=== PATIENT | male | born 1965 | race Caucasian/White ===

== ENCOUNTER 2017-05-25 14:55 | Inpatient (IN) | payer OTHER ==
[2017-05-25] MEDS ORDERED: FUROSEMIDE 10 MG/ML 4 ML VIAL IV STA (15:03)
[2017-05-25] MEDS ORDERED: HEPARIN SODIUM,PORCINE 5,000 UNIT/ML 1 ML VIAL IV STA (15:03)
[2017-05-25] MEDS ORDERED: MORPHINE SULFATE 2 MG/ML SYRINGE IVP ONE (15:03)
[2017-05-25] MEDS ORDERED: LIDOCAINE 2% INJ 20 MG/ML (20 ML MDV) ONE (15:08)
--- NOTE | 2017-05-25 15:11 | ED ---
Chest Pain HPI - General Chief Complaint: Chest Pain Stated Complaint: chest pain Time Seen by Provider: 05/25/17 14:55 Source: patient, EMS, RN notes reviewed Mode of arrival: EMS Limitations: no limitations - History of Present Illness Initial Comments: This is a 52-year-old male with a history of alcoholism drinking about 18 beers a day also a smoker of a pack a day but no history of hypertension kidney or liver disease that he is aware of who started having pain in his chest also low back and back of his neck about 5 days ago and seems to have gotten worse today he called EMS states it was 10/10 in severity paramedics did perform an EKG which showed suspicious evidence of ST elevations in lead 1 V5 and V6. He was given aspirin nitroglycerin transferred here for evaluation. He denies any nausea vomiting he does have some slight shortness of breath. No other complaints oh History of heart disease at this time reported. MD Complaint: chest pain - Related Data Home Medications Medication Instructions Recorded Confirmed No Known Home Medications [No 05/25/17 05/25/17 Known Home Medications] Allergies Allergy/AdvReac Type Severity Reaction Status Date / Time No Known Allergies Allergy Verified 05/25/17 15:04 Review of Systems ROS Statement: Those systems with pertinent positive or pertinent negative responses have been documented in the HPI. ROS Other: All systems not noted in ROS Statement are negative. Past Medical History Past Medical History: No Reported History History of Any Multi-Drug Resistant Organisms: None Reported Past Surgical History: Back Surgery Past Psychological History: No Psychological Hx Reported Smoking Status: Current every day smoker Past Alcohol Use History: Daily Past Drug Use History: None Reported General Exam - General Exam Comments Initial Comments: This is a well-developed well-nourished awake alert oriented times 3 male Limitations: no limitations General appearance: alert, anxious Head exam: Present: atraumatic, normocephalic, normal inspection Eye exam: Present: normal appearance, PERRL, EOMI. Absent: scleral icterus, conjunctival injection, periorbital swelling ENT exam: Present: normal exam, mucous membranes moist Neck exam: Present: normal inspection. Absent: tenderness, meningismus, lymphadenopathy Respiratory exam: Present: normal lung sounds bilaterally. Absent: respiratory distress, wheezes, rales, rhonchi, stridor Cardiovascular Exam: Present: normal rhythm, tachycardia, normal heart sounds. Absent: systolic murmur, diastolic murmur, rubs, gallop, clicks GI/Abdominal exam: Present: soft, normal bowel sounds. Absent: distended, tenderness, guarding, rebound, rigid Extremities exam: Present: normal inspection, full ROM, normal capillary refill. Absent: tenderness, pedal edema, joint swelling, calf tenderness Back exam: Present: normal inspection Neurological exam: Present: alert, oriented X3, CN II-XII intact Psychiatric exam: Present: normal affect, normal mood Skin exam: Present: warm, dry, intact, normal color. Absent: rash Course Vital Signs 05/25/17 05/25/17 05/25/17 14:56 15:00 15:15 Temperature 99.2 F Pulse Rate 129 H 129 H 127 H Respiratory 30 H 24 18 Rate Blood Pressure 122/88 107/82 138/74 O2 Sat by Pulse 92 L 91 L Oximetry 05/25/17 05/25/17 05/25/17 17:26 17:36 18:00 Temperature 99.1 F 98.6 F Pulse Rate 123 H 122 H 119 H Respiratory 30 H 25 H 32 H Rate Blood Pressure 131/86 119/91 127/83 O2 Sat by Pulse 95 95 Oximetry 05/25/17 18:08 Temperature Pulse Rate 110 H Respiratory 30 H Rate Blood Pressure 127/83 O2 Sat by Pulse Oximetry - Reevaluation(s) Reevaluation #1: 05/25/17 18:16 A STEMI was suspected based on presentation and initial EKG. Dr. Gonzales did come the emergency department to see the patient and take him to the [facility]. Reevaluation #2: 05/25/17 18:17 Subsequent x-ray showed evidence of right upper lobe infiltrate/consolidation Chest Pain [facility] Patient was seen in the [facility] for evaluation for suspected ST elevation myocardial infarction. The cath apparently was within normal limits there was however evidence of a pericardial effusion the patient was admitted to the intensive care unit. Thoracic surgery was consulted I did discuss the case with Dr. Pop and with Dr. Gonzales. Critical Care Time Critical Care Time: Yes Critical Care Time: 31 minutes of critical care time which includes monitoring initially EMS run and discussed with paramedics. Discussion with the scoop driver as well as with the dipper clock and watch hands. History physical labs x-rays on the patient review the above. Some admission orders documentation the above. Discussion with the admitting physician. Disposition Clinical Impression: ST elevation myocardial infarction (STEMI), Pericardial effusion, Right upper lobe pneumonia, Hyponatremia syndrome, Alcoholism Disposition: ADMITTED IP TO THIS HOSP Condition: Serious
[2017-05-25 15:13] LABS: Glucose,Whole Blood 297 mg/dL (75-99)
[2017-05-25 15:13] LABS: CH 31.4; CHCM 33.2; HCT 50.7 % (39.0-53.0); HDW 2.51; HGB 16.8 gm/dL (13.0-17.5); Immature Gran Flag Marked; MCH 31.6 pg (25.0-35.0); MCHC 33.2 g/dL (31.0-37.0); MCV 95.2 fL (80.0-100.0); Mean Platelet Volume 9.4; RBC 5.32 m/uL (4.30-5.90); RDW 12.8 % (11.5-15.5); WBC (Perox) 28.53
[2017-05-25 15:20] LABS: WBC 29.7 k/uL (3.8-10.6)
[2017-05-25 15:21] LABS: ALT 72 U/L (21-72); AST 117 U/L (17-59); Alkaline Phosphatase 75 U/L (38-126); Anion Gap 19 mmol/L; Blood Urea Nitrogen 19 mg/dL (9-20); Calcium 8.7 mg/dL (8.4-10.2); Carbon Dioxide 19 mmol/L (22-30); Chloride 85 mmol/L (98-107); Glucose 264 mg/dL (74-99); Non-African American GFR(MDRD) 55 (>60 ml/min/1.73 sqM); Potassium 3.5 mmol/L (3.5-5.1); Sodium 123 mmol/L (137-145); Total Bilirubin 2.2 mg/dL (0.2-1.3); Total Protein 6.2 g/dL (6.3-8.2)
[2017-05-25 15:22] LABS: INR 1.6 (<1.2); Partial Thromboplastin Time 25.9 sec (22.0-30.0); Prothrombin Time 15.4 sec (9.0-12.0)
[2017-05-25 15:32] LABS: Creatine Kinase 29 U/L (55-170)
[2017-05-25] MEDS ORDERED: LIDOCAINE 2% INJ 20 MG/ML SQ ONE (15:36)
[2017-05-25] MEDS ORDERED: SODIUM CHLORIDE 0.9% 1,000 ML IV ONE (15:37)
[2017-05-25] MEDS: FUROSEMIDE 10 MG/ML 4 ML VIAL IV ONE ×2 (15:42→15:53)
[2017-05-25 15:43] LABS: Manual Review Performed
[2017-05-25] MEDS ORDERED: FUROSEMIDE 10 MG/ML 4 ML VIAL ONE (15:43)
[2017-05-25 15:45] LABS: Creatine Kinase MB 0.6 ng/mL (0.0-2.4); Troponin I <0.012 ng/mL (0.000-0.034)
[2017-05-25] MEDS ORDERED: BIVALIRUDIN BOLUS 250 MG/50 ML IV ONE (15:45)
[2017-05-25] MEDS ORDERED: BIVALIRUDIN 250 MG in SODIUM CHLORIDE 0.9% 50 ML IV ONE ×4 (15:45)
[2017-05-25 15:48] LABS: Metamyelocytes % 1.5 %; Nucleated Red Blood Cells 0 /100 WBC (0-0); RBC Morphology Normal; Total Cells Counted 200
[2017-05-25] MEDS ORDERED: HYDROmorphone 2 MG/ML 1 ML SYRINGE ONE (15:55)
[2017-05-25 15:56] LABS: Add Differential Manual Differential
[2017-05-25] MEDS ORDERED: HYDROmorphone 2 MG/ML 1 ML SYRINGE IV ONE (15:56)
[2017-05-25] MEDS ORDERED: CLOPIDOGREL 75 MG TAB ONE (16:05)
[2017-05-25 16:08] LABS: ABG Base Excess -2.2 mmol/L; ABG HCO3 22 mmol/L (21-25); ABG Oxygen Saturation 94.4 % (94-97); ABG PCO2 37 mmHg (35-45); ABG PH 7.39 (7.35-7.45); ABG PO2 65 mmHg (83-108)
[2017-05-25] MEDS ORDERED: METOPROLOL TARTRATE 5 MG/5 ML VIAL IVP ONE ×2 (16:08→16:13)
[2017-05-25] MEDS ORDERED: CLOPIDOGREL 75 MG TAB PO ONE (16:13)
--- NOTE | 2017-05-25 16:19 | XR ---
EXAMINATION TYPE: XR chest 1V portable DATE OF EXAM: 05/25/2017 COMPARISON: NONE HISTORY: Chest pain. TECHNIQUE: Single AP portable frontal supine view of the chest is obtained. FINDINGS: There is right upper lobe consolidation abutting fissure. There is additional bibasilar o pacities system with infiltrate and/or atelectasis. No large pleural effusion or pneumothorax is seen bilaterally. The cardiac silhouette size is enlarged. The osseous structures are intact. IMPRESSION: Cardiomegaly with right upper lobe consolidation and bibasilar infiltrate and/or atelect asis noted.
[2017-05-25] MEDS ORDERED: IODIXANOL 320 MG/ML 100 ML INTRAARTER ONE (16:32)
[2017-05-25] MEDS ORDERED: NALOXONE 0.4 MG/ML 1 ML VIAL IV PRN (16:32)
[2017-05-25] MEDS ORDERED: LEVOFLOXACIN 750MG-D5W PMX 750 MG in DEXTROSE/WATER 1 150ML.BAG IVPB ONE (16:39)
[2017-05-25 16:59] LABS: Glucose,Whole Blood 314 mg/dL (75-99)
[2017-05-25] MEDS ORDERED: POTASSIUM CHLORIDE 20 MEQ, LIDOCAINE 2% INJ 20 MG in SODIUM CHLORIDE 0.9% 100 ML IVPB ONE (17:00)
--- NOTE | 2017-05-25 17:09 | CONS ---
This is a 52 year old gentleman who used to be in the [employer] business. He has not been working for four years. Drinks anywhere from 12 to 18 beers a day. Smokes at least one to one and one half packs per day. For the last five days, he has been having chest pain but did not seek medical attention. When the pain got worse today, he called 911 and came into the hospital. EKG revealed ST elevation in leads 1, AVL, V4, V5 and V6 suggestive of lateral PR. There was also some ST elevation in Lead 2, suggesting that this could be a large circumflex or a LAD prior to the diagonal branch. However, his blood pressure is 110/70. His oxygen saturation on 3 L is 91%. He complains of shortness of breath and chest pressure. His clinical picture is consistent with acute PR with impending cardiogenic shock. Past medical history: 1. Status some back surgery. 2. He also had some testicular operations. 3. He smokes one pack per day. He has family history of CAD. He drinks alcohol heavily. He has no evidence of hypertension, diabetes, myocardial infarction or CVA. Medications at home include: None. Allergies are none. On examination, blood pressure is 110/70. Pulse rate is about 90 per minute, regular. HEENT unremarkable. Fundus was not examined by me. Neck is supple. There is JVD of 1 cm. I do not hear a carotid bruit. No thyromegaly. Heart exam reveals S1, S2 with somewhat distant heart sounds. No significant murmur. Lungs revealed diminished air entry bilateral lung [place]. Rales in both bases. Abdomen is soft and there is evidence of an abdominal hernia. Bowel sounds are audible. Lower extremities revealed diminished pulses. No edema. Central nervous system is grossly within normal limits. EKG revealed sinus tachycardia with inferolateral ST segment elevation suggestive of acute ST elevation PR. IMPRESSION: 1. Acute ST elevation myocardial infarction involving the apical lateral wall of the left ventricle. Clinical picture suggests impending cardiogenic shock. 2. History of alcohol abuse. 3. History of smoking. 4. Probable chronic obstructive pulmonary disease. RECOMMENDATIONS: I am recommending urgent cardiac catheterization intervention. I have given him aspirin and heparin. We will take him to the botany laboratory assistant expeditiously. Rationale, risks, benefits and options were explained to the patient related to cardiac catheterization and PCI. He is fully aware of the risks of high mortality given his clinical presentation and picture. There is no family available. He is trying to reach his ex- and brother. Thank you very much for the consult. MILA
[2017-05-25] MEDS: PIPERACILLIN-TAZOBACTAM 3.375 GM in DEXTROSE/WATER 1 50ML.BAG IVPB SCH (17:40)
--- NOTE | 2017-05-25 18:37 | P.GSCN ---
History of Present Illness Consult date: 05/25/17 Reason for Consult: Large pericardial effusion with tamponade physiology Requesting physician: Celina Gonzales History of present illness: I was called urgently to evaluate Mr. Araujo who is a 52's old gentleman who presented with 4-5 days of chest pain that got worse today. He was found to have ST elevation and was taken to cardiac catheterization and underwent PTCA stenting of his LAD with a bare metal stent. A 2-D echo performed showed a large pericardial effusion with tamponade physiology. Patient was transferred to the ICU in preparation for potential pericardiocentesis/ pericardial window. Patient is a heavy alcoholic unemployed at this point. He is also a daily smoker of one to one and a half packs per day. In the ICU his heart rate is 112 and his blood pressure is 140/90. He complains of shortness of breath and some pleuritic pain. Review of Systems - Constitutional Reports chills, Reports malaise, Reports night sweats - Cardiovascular Reports chest pain, Reports orthopnea, Reports shortness of breath Past Medical History Past Medical History: No Reported History History of Any Multi-Drug Resistant Organisms: None Reported Past Surgical History: Back Surgery Past Psychological History: No Psychological Hx Reported Smoking Status: Current every day smoker Past Alcohol Use History: Daily, Heavy Past Drug Use History: None Reported Medications and Allergies Home Medications Medication Instructions Recorded Confirmed Type No Known Home Medications [No 05/25/17 05/25/17 History Known Home Medications] Allergies Allergy/AdvReac Type Severity Reaction Status Date / Time No Known Allergies Allergy Verified 05/25/17 15:04 Surgical - Exam Vital Signs Temp Pulse Resp BP 99.2 F 129 H 30 H 122/88 05/25/17 14:56 05/25/17 14:56 05/25/17 14:56 05/25/17 14:56 - General moderate distress - Neck JVD 2+ - Respiratory right: dullness - Cardiovascular Rhythm: regular Heart Sounds: normal: S1, S2 Abnormal Heart Sounds: rub - Abdomen Abdomen: distended - Genitourinary Deferred - Rectum Deferred Results - Labs 05/25/17 15:00 05/25/17 15:00 Abnormal Lab Results - Last 24 Hours (Table) 05/25/17 05/25/17 05/25/17 Range/Units 15:00 15:00 15:00 WBC 29.7 H* (3.8-10.6) k/uL Neutrophils # (Manual) 28.7 H (1.3-7.7) k/uL Lymphocytes # (Manual) 0.6 L (1.0-4.8) k/uL PT (9.0-12.0) sec INR (<1.2) D-Dimer (<0.60) mg/L FEU ABG pO2 (83-108) mmHg ABG Hematocrit (34.0-46.0) % Sodium 123 L (137-145) mmol/L Chloride 85 L (98-107) mmol/L Carbon Dioxide 19 L (22-30) mmol/L Creatinine 1.35 H (0.66-1.25) mg/dL Glucose 264 H (74-99) mg/dL POC Glucose (mg/dL) (75-99) mg/dL Total Bilirubin 2.2 H (0.2-1.3) mg/dL AST 117 H (17-59) U/L Total Creatine Kinase 29 L (55-170) U/L Total Protein 6.2 L (6.3-8.2) g/dL Albumin 3.2 L (3.5-5.0) g/dL 05/25/17 05/25/17 05/25/17 Range/Units 15:00 15:00 15:09 WBC (3.8-10.6) k/uL Neutrophils # (Manual) (1.3-7.7) k/uL Lymphocytes # (Manual) (1.0-4.8) k/uL PT 15.4 H (9.0-12.0) sec INR 1.6 H (<1.2) D-Dimer 1.32 H (<0.60) mg/L FEU ABG pO2 (83-108) mmHg ABG Hematocrit (34.0-46.0) % Sodium (137-145) mmol/L Chloride (98-107) mmol/L Carbon Dioxide (22-30) mmol/L Creatinine (0.66-1.25) mg/dL Glucose (74-99) mg/dL POC Glucose (mg/dL) 297 H (75-99) mg/dL Total Bilirubin (0.2-1.3) mg/dL AST (17-59) U/L Total Creatine Kinase (55-170) U/L Total Protein (6.3-8.2) g/dL Albumin (3.5-5.0) g/dL 05/25/17 05/25/17 Range/Units 16:00 16:55 WBC (3.8-10.6) k/uL Neutrophils # (Manual) (1.3-7.7) k/uL Lymphocytes # (Manual) (1.0-4.8) k/uL PT (9.0-12.0) sec INR (<1.2) D-Dimer (<0.60) mg/L FEU ABG pO2 65 L (83-108) mmHg ABG Hematocrit 48 H (34.0-46.0) % Sodium (137-145) mmol/L Chloride (98-107) mmol/L Carbon Dioxide (22-30) mmol/L Creatinine (0.66-1.25) mg/dL Glucose (74-99) mg/dL POC Glucose (mg/dL) 314 H (75-99) mg/dL Total Bilirubin (0.2-1.3) mg/dL AST (17-59) U/L Total Creatine Kinase (55-170) U/L Total Protein (6.3-8.2) g/dL Albumin (3.5-5.0) g/dL Diabetes panel 05/25/17 Range/Units 15:00 Sodium 123 L (137-145) mmol/L Potassium 3.5 (3.5-5.1) mmol/L Chloride 85 L (98-107) mmol/L Carbon Dioxide 19 L (22-30) mmol/L BUN 19 (9-20) mg/dL Creatinine 1.35 H (0.66-1.25) mg/dL Glucose 264 H (74-99) mg/dL Calcium 8.7 (8.4-10.2) mg/dL AST 117 H (17-59) U/L ALT 72 (21-72) U/L Alkaline Phosphatase 75 (38-126) U/L Total Protein 6.2 L (6.3-8.2) g/dL Albumin 3.2 L (3.5-5.0) g/dL Calcium panel 05/25/17 Range/Units 15:00 Calcium 8.7 (8.4-10.2) mg/dL Albumin 3.2 L (3.5-5.0) g/dL Pituitary panel 05/25/17 Range/Units 15:00 Sodium 123 L (137-145) mmol/L Potassium 3.5 (3.5-5.1) mmol/L Chloride 85 L (98-107) mmol/L Carbon Dioxide 19 L (22-30) mmol/L BUN 19 (9-20) mg/dL Creatinine 1.35 H (0.66-1.25) mg/dL Glucose 264 H (74-99) mg/dL Calcium 8.7 (8.4-10.2) mg/dL Adrenal panel 05/25/17 Range/Units 15:00 Sodium 123 L (137-145) mmol/L Potassium 3.5 (3.5-5.1) mmol/L Chloride 85 L (98-107) mmol/L Carbon Dioxide 19 L (22-30) mmol/L BUN 19 (9-20) mg/dL Creatinine 1.35 H (0.66-1.25) mg/dL Glucose 264 H (74-99) mg/dL Calcium 8.7 (8.4-10.2) mg/dL Total Bilirubin 2.2 H (0.2-1.3) mg/dL AST 117 H (17-59) U/L ALT 72 (21-72) U/L Alkaline Phosphatase 75 (38-126) U/L Total Protein 6.2 L (6.3-8.2) g/dL Albumin 3.2 L (3.5-5.0) g/dL - Imaging Chest x-ray: image reviewed EKG: report reviewed, image reviewed Additional studies: 2-D echo shows a circumferential pericardial effusion with right atrial collapse Assessment and Plan Plan: 52's old gentleman with several days of chest pain leukocytosis large pericardial effusion with tamponade physiology status post PTCA stenting to his left anterior descending artery. Case discussed with Dr. Gonzales. We will be attempting an echo guided pericardiocentesis in view of the patient's comorbidities and clinical status at this point. Risks benefits and alternatives of the procedure were discussed with the patient who understood them and gave his consent. Patient will be giving some fresh frozen plasma in view of elevated INR likely due to his EtOH abuse.
--- NOTE | 2017-05-25 18:42 | P.PCN ---
Date of Procedure: 05/25/17 Preoperative Diagnosis: Large pericardial effusion with tamponade Postoperative Diagnosis: Same Procedure(s) Performed: Bedside echo guided pericardiocentesis and insertion of pericardial drain Implants: Anesthesia: local Surgeon: Malachi Multani Estimated Blood Loss (ml): 0 Pathology: other (Fluid sent for cytology as well as culture and biochemical analysis) Condition: other (Guarded) Disposition: no change Indications for Procedure: Large pericardial effusion with temper not Operative Findings: 380 mL of cloudy tannish fluid aspirated from the pericardium Description of Procedure: The epigastric region was prepped and draped using ChloraPrep. This was done after a quick echographic check on the pass to the pericardium. Local anesthesia was secured with lidocaine 2%. The access was just subxiphoid with a 45 angle mildly directed to the left. Using Seldinger technique a triple- lumen catheter was inserted into the pericardium and position was confirmed with echocardiography. We subsequently aspirated 380 mL of cloudy tannish fluid that was sent for cytology biochemical analysis cell count as well as Gram stain and culture. The catheter was affixed to the skin with a silk 2-0 suture. Patient tolerated procedure well. Echocardiography at the end of the procedure showed trace residual pericardial effusion.
--- NOTE | 2017-05-25 18:52 | CC ---
DATE OF SERVICE: 05/25/2017 PROCEDURE: Left heart catheterization, coronary angiography. PERFORMED BY: Dr. Jennifer Gonzales. CLINICAL INFORMATION: Mr. Michael Araujo is a 52 year old gentleman with a history of alcoholism and smoking who came into the hospital after calling 911 after five days of chest pain and shortness of breath. His EKG revealed ST elevation involving the apical lateral leads. He was advised cardiac cath that was performed expeditiously. PROCEDURE NOTE: Under local anesthesia and strict aseptic precautions, a 6 Bangladeshi introducer was placed in the right femoral artery. Using standard right Catarina catheter I performed selective coronary angiography of the RCA, using a guide catheter of a JL4 curve, I performed a left coronary angiography, noted that there was a borderline lesion in the mid LAD and proceeded to perform intervention in the same setting. LV pressures were obtained but LV gram was not performed. Following the cardiac cath and PCI, I checked a chest x-ray which revealed cardiomegaly and right sided pneumonia. I then performed echocardiogram which revealed a large pericardial effusion. I spoke to Dr. Multani to perform a window procedure. INR is 1.6 for this patient. CARDIAC CATHETERIZATION FINDINGS: The left ventricle end diastolic pressure was 22 mmHg and there was no gradient across the aortic valve. LEFT VENTRICULOGRAM: This was performed in 30 degree MARTINEZ projection, revealed the left ventricle which is normal size with preserved systolic function. There was some ventricular ectopy. The ejection fraction appears to be the normal range of about 55% without any clear cut wall motion abnormality. Because of ectopy, the contractility seems somewhat asymmetrical. There is no significant mitral regurgitation. CORONARY ANGIOGRAPHY FINDINGS: Right coronary artery is a large dominant vessel, has no significant disease. Bifurcates into large PLV, smaller PDA both of which supply a sizable amount of myocardium. No significant disease in the dominant RCA. Left main coronary artery: Short, patent, vessel, free of significant disease, bifurcates into LAD and circumflex. Left anterior descending coronary artery: Good caliber vessel extends along the anterior wall, gives off good sized diagonal branch and there is a hazy area of narrowing of up to 70% in some views. The haziness suggests that this may be an acute lesion. However, it is not a critical lesion. The flow appears to be brisk. There is somewhat sluggish flow in the LAD compared to the circumflex. Beyond the hazy, 60-70% stenosis, the caliber of the vessel improves and it runs all the way to the apex supplying a sizable amount of myocardium. It gives off septal and diagonal branches and runs all the way to the apex. Particularly in frame 28 of 51, the LAD lesion appears to be hazy, eccentric and could be the culprit lesion. Left posterior circumflex coronary artery: Nondominant vessel gives off a high obtuse marginal and then runs in the AV groove and gives off a posterolateral branch, all of which are free of significant disease. FINAL IMPRESSION: This patient has about an eccentric 60 to 70% hazy lesion in the mid LAD which could be the culprit lesion. The diagonal that comes off before that is free of significant disease. The dominant RCA and nondominant circumflex are free of significant disease. RECOMMENDATIONS: I advised PCI and proceeded to perform this expeditiously. Also, I ordered for a chest x-ray and echocardiogram. MILA
--- NOTE | 2017-05-25 18:58 | PTCA ---
DATE OF SERVICE: 05/25/17 PROCEDURE: PTCA and stenting of mid LAD. PERFORMED BY: Dr. Jennifer Gonzales. CLINICAL INFORMATION: Mr. Araujo underwent a cardiac cath when he presented with ST elevation in apical lateral leads. Cardiac cath revealed a 60 to 70% eccentric lesion in the LAD. He was advised intervention promptly. PROCEDURE NOTE: The existing left Catarina type guide catheter of 4.0 curve was used. BMW wire was used to cross the lesion. Without predilatation, a 3.5 caliber 12 mm long bare metal vision stent was deployed at 12 atmospheres. The patient had chest pain and anterior ST elevation. Excellent angiographic result was achieved without complication. The sheath was then sutured. I performed echocardiogram and also a chest x-ray noted that he had a large pericardial effusion and requested Dr. Multani to perform a window. The patient' s INR was 1.6. His white count was elevated and there was evidence of pneumonia. I gave him some Zosyn and also Levaquin intravenously. The patient will have the procedure performed in the next hour or so. I spoke to Dr. Pop and he will be admitted to the ICU. Prognosis remains guarded. The patient's sheath is in place. I discontinued Angiomax, gave him 600 mg of Plavix. Moderate conscious sedation was provided with Versed, Benadryl and morphine. The patient's total moderate conscious sedation time was about one hour. [facility]
[2017-05-25] MEDS: SODIUM CHLORIDE 0.9% 1,000 ML IV SCH (19:59)
[2017-05-25] MEDS ORDERED: INSULIN LISPRO (humaLOG) 300 UNIT/3 ML VIAL SQ ONE (20:11)
[2017-05-25] MEDS ORDERED: LORazepam 2 MG/ML SYRINGE IV PRN ×2 (20:11)
[2017-05-25] MEDS ORDERED: amLODIPine 5 MG TAB PO STA (20:18)
[2017-05-25] MEDS ORDERED: METOPROLOL TARTRATE 25 MG TAB PO STA (20:18)
[2017-05-25] MEDS: INSULIN LISPRO (humaLOG) 300 UNIT/3 ML VIAL SQ SCH (20:27)
[2017-05-25 21:01] LABS: RBC, Body Fluid 17375 /uL
[2017-05-25] MEDS: MORPHINE SULFATE 2 MG/ML SYRINGE IVP PRN (21:44)
[2017-05-25] MEDS: LORazepam 2 MG/ML SYRINGE IV PRN ×5 (22:01→23:48)
[2017-05-25] MEDS: HALOPERIDOL LACTATE 5 MG/ML 1 ML VIAL IM PRN (22:26)
[2017-05-25 22:54] LABS: ABG Base Excess 0.9 mmol/L; ABG HCO3 25 mmol/L (21-25); ABG PCO2 43 mmHg (35-45); ABG PH 7.39 (7.35-7.45); ABG PO2 63 mmHg (83-108); ABG TCO2 27 mmol/L (19-24)
[2017-05-25 23:12] LABS: Total Protein, Body Fluid 6200 mg/dL
[2017-05-25] MEDS ORDERED: ATROPINE SULFATE 0.1 MG/ML 10ML SYRINGE ONE (23:47)
[2017-05-26] MEDS: LORazepam 2 MG/ML SYRINGE IV PRN ×10 (00:03→22:27)
[2017-05-26] MEDS: PIPERACILLIN-TAZOBACTAM 3.375 GM in DEXTROSE/WATER 1 50ML.BAG IVPB SCH ×2 (02:07→08:58)
[2017-05-26 05:45] LABS: Amorphous Sediment,Urine Rare /hpf; Appearance,Urine Cloudy (Clear); Bacteria,Urine Rare /hpf; Bilirubin,Urine Negative (Negative); Glucose,Urine (UA) Negative (Negative); Ketones,Urine Negative (Negative); Leukocyte Esterase,Urine Trace (Negative); Mucus,Urine Rare /hpf; Nitrite,Urine Negative (Negative); PH, Urine 5.5 (5.0-8.0); Particle Count 21183; Protein,Urine 1+ (Negative); RBC,Urine 10 /hpf (0-5); Squamous Epithelial Cell,Urine 1 /hpf (0-4); UA Billing (MACRO vs. MICRO) MICRO; WBC,Urine 15 /hpf (0-5)
[2017-05-26 06:03] LABS: CH 31.7; CHCM 33.7; HCT 50.1 % (39.0-53.0); HDW 2.53; HGB 16.7 gm/dL (13.0-17.5); Immature Gran Flag Moderate; MCH 31.4 pg (25.0-35.0); MCHC 33.3 g/dL (31.0-37.0); MCV 94.4 fL (80.0-100.0); Mean Platelet Volume 8.1; RDW 12.8 % (11.5-15.5); WBC 21.8 k/uL (3.8-10.6); WBC (Perox) 22.35
[2017-05-26 06:06] LABS: Anion Gap 12 mmol/L; Blood Urea Nitrogen 30 mg/dL (9-20); Calcium 8.5 mg/dL (8.4-10.2); Carbon Dioxide 27 mmol/L (22-30); Chloride 91 mmol/L (98-107); Glucose 78 mg/dL (74-99); Non-African American GFR(MDRD) >60 (>60 ml/min/1.73 sqM); Phosphorous 3.4 mg/dL (2.5-4.5); Potassium 3.4 mmol/L (3.5-5.1); Sodium 130 mmol/L (137-145)
[2017-05-26 06:42] LABS: Add Differential Manual Differential
[2017-05-26 06:53] LABS: Metamyelocytes % 0.5 %; Nucleated Red Blood Cells 0 /100 WBC (0-0); Total Cells Counted 200
[2017-05-26 06:55] LABS: Polychromasia Present; Toxic Granulation Present
--- NOTE | 2017-05-26 07:14 | XR ---
EXAMINATION TYPE: XR chest 1V DATE OF EXAM: 05/26/2017 CLINICAL HISTORY: Difficulty breathing progress study. TECHNIQUE: Single AP portable upright view of the chest is obtained. COMPARISON: Chest x-ray from one day earlier FINDINGS: There is persistent right upper lobe consolidation laterally abutting fissure. There are a dditional bibasilar opacities consistent with bilateral multifocal infiltrate and/or atelectasis. Alberto ateral perihilar opacities could reflect edema and/or infiltrates. No large pleural effusion or pneum othorax is seen bilaterally. The cardiac silhouette size remains enlarged. The osseous structures are intact. IMPRESSION: Overall stable findings, cardiomegaly with bilateral perihilar edema and/or infiltrates and bibasilar infiltrate and/or atelectasis with right upper lobe consolidation all redemonstrated. Consider combination of multifocal pneumonia and CHF exacerbation.
[2017-05-26 08:22] LABS: Glucose,Whole Blood 111 mg/dL (75-99)
[2017-05-26] MEDS ORDERED: Potassium Replacement Protocol 1 EACH MISC MISCELLANE PRN ×2 (09:08→15:30)
[2017-05-26] MEDS: SODIUM CHLORIDE 0.9% 1,000 ML IV SCH ×2 (09:41→19:42)
[2017-05-26] MEDS: POTASSIUM CHLORIDE 10 MEQ, LIDOCAINE 2% INJ 10 MG in SODIUM CHLORIDE 0.9% 100 ML IV SCH ×4 (10:16→17:17)
--- NOTE | 2017-05-26 10:42 | XR ---
EXAMINATION TYPE: XR chest 1V portable DATE OF EXAM: 05/26/2017 CLINICAL HISTORY: NG tube placement. TECHNIQUE: Single AP portable upright view of the chest is obtained. COMPARISON: Chest x-ray from earlier today FINDINGS: There is new nasogastric tube projecting below left hemidiaphragm. There is persistent right upper lobe consolidation laterally abutting fissure. There are additional b ibasilar opacities consistent with bilateral multifocal infiltrate and/or atelectasis. Bilateral august hilar opacities could reflect edema and/or infiltrates. Cannot exclude ectatic aorta. No large pleura l effusion or pneumothorax is seen bilaterally. The cardiac silhouette size remains enlarged. The oss eous structures are intact. IMPRESSION: New nasogastric tube projecting below left hemidiaphragm. Other findings stable with card iomegaly and bilateral perihilar edema and/or infiltrates along with bibasilar infiltrates and/or ate lectasis and right upper lung lateral consolidation. Consider combination of multifocal pneumonia and CHF exacerbation.
[2017-05-26] MEDS: CLOPIDOGREL 75 MG TAB PO SCH (10:50)
[2017-05-26] MEDS: ATORVASTATIN 40 MG TAB PO SCH (10:50)
[2017-05-26] MEDS: ASPIRIN 81 MG CHEW PO SCH (10:50)
[2017-05-26] MEDS: PANTOPRAZOLE 40 MG/10 ML VIAL IV SCH (10:51)
[2017-05-26] MEDS: METOPROLOL TARTRATE 25 MG TAB PO SCH ×3 (10:51→22:14)
--- NOTE | 2017-05-26 11:41 | P.PN ---
Subjective Principal diagnosis: Large pericardial effusion with tape and on physiology, acute ST elevation myocardial infarction involving the apical lateral wall of the left ventricle, history of alcohol abuse, history of chronic nicotine dependence, and chronic obstructive pulmonary disease. Status post day #1 of insertion of a bedside echo guided pericardiocentesis and insertion of pericardial drain. POD #1 left heart catheterization, coronary angiogram with placement of a stent placement to his left anterior descending coronary artery by Dr. GRICELDA Gonzales. Is currently laying in bed and is sedated, he is withdrawing from noxious stimuli. No distress noted. Objective - Vital Signs Vital signs: Vital Signs Temp 101 F H 05/26/17 04:00 Pulse 127 H 05/26/17 07:00 Resp 48 H 05/26/17 07:00 BP 140/92 05/26/17 07:00 Pulse Ox 92 L 05/26/17 07:00 Intake & Output 05/25/17 05/26/17 05/26/17 18:59 06:59 18:59 Intake Total 389.5 1000 688 Output Total 240 1670 80 Balance 149.5 -670 608 Weight 95 kg Intake: IV 389.5 1000 75 Potassium Chloride 20 meq 100 Lidocaine 2% Inj 20 mg In Sodium Chloride 0.9% 100 ml @ 55.5 mls/hr IVPB ONCE ONE Rx#:[id number] Sodium Chloride 0.9% 1, 225 900 75 000 ml @ 75 mls/hr IV . [id number] [facility] Rx#:[id number] Blood Product 0 613 Ffp 24 Cpd Unit 0 278 [id number] Ffp 24 Cpd Unit 0 335 [id number] Output: Gastric Drainage 430 Urine 240 1240 80 Other: Voiding Method Indwelling Catheter ABP, PAP, CO, CI - Last Documented Arterial Blood Pressure 184/99 - Constitutional Constitutional Comment(s): Patient is sedated, not following any verbal commands at this time he does withdraw from noxious stimuli. General appearance: Present: disheveled, no acute distress - EENT Eyes: Present: PERRLA, normal appearance - Respiratory Details: Respirations are symmetrical and unlabored. Essentially clear to his bilateral upper lobes, diminished to his bilateral lower lobes. His oxygen and saturations are 98% on a non-rebreather mask with 15 L of oxygen. - Cardiovascular Details: Regular rhythm and rate, negative for S3, gallop or murmur. Positive JVD. Pericardial catheter remains intact, 225 mL of cloudy serosanguineous drainage removed. Heart rate: 117 (Bedside telemetry showing sinus tachycardia with elevated ST in lead 2 and lead 5.) Rhythm: regular Heart sounds: normal: S1, S2 - Gastrointestinal Gastrointestinal Comment(s): Nontender, nondistended. Abdomen with positive bowel sounds 4 abdominal quadrants. General gastrointestinal: Present: soft - Genitourinary Genitourinary Comment(s): Adequate urine output, Merino catheter for accurate I&O. Concentrated yellow urine. - Integumentary Integumentary: Present: normal, normal turgor - Musculoskeletal Musculoskeletal: Present: generalized weakness - Psychiatric Psychiatric Comment(s): He is currently sedated. He is on the alcohol CWIA program. - Allied health notes Allied health notes reviewed: nursing - Labs CBC & Chem 7: 05/26/17 05:35 05/26/17 05:35 Labs: Abnormal Lab Results - Last 24 Hours (Table) 05/25/17 05/25/17 05/25/17 Range/Units 15:00 15:00 15:00 WBC 29.7 H* (3.8-10.6) k/uL Neutrophils # (Manual) 28.7 H (1.3-7.7) k/uL Lymphocytes # (Manual) 0.6 L (1.0-4.8) k/uL PT (9.0-12.0) sec INR (<1.2) D-Dimer (<0.60) mg/L FEU ABG pO2 (83-108) mmHg ABG Total CO2 (19-24) mmol/L ABG O2 Saturation (94-97) % ABG Hematocrit (34.0-46.0) % Sodium 123 L (137-145) mmol/L Potassium (3.5-5.1) mmol/L Chloride 85 L (98-107) mmol/L Carbon Dioxide 19 L (22-30) mmol/L BUN (9-20) mg/dL Creatinine 1.35 H (0.66-1.25) mg/dL Glucose 264 H (74-99) mg/dL POC Glucose (mg/dL) (75-99) mg/dL Plasma Lactic Acid Rob (0.7-2.0) mmol/L Total Bilirubin 2.2 H (0.2-1.3) mg/dL AST 117 H (17-59) U/L Total Creatine Kinase 29 L (55-170) U/L Total Protein 6.2 L (6.3-8.2) g/dL Albumin 3.2 L (3.5-5.0) g/dL Urine Protein (Negative) Urine Blood (Negative) Ur Leukocyte Esterase (Negative) Urine RBC (0-5) /hpf Urine WBC (0-5) /hpf Urine WBC Clumps (None) /hpf Amorphous Sediment (None) /hpf Urine Bacteria (None) /hpf Urine Mucus (None) /hpf 05/25/17 05/25/17 05/25/17 Range/Units 15:00 15:00 15:09 WBC (3.8-10.6) k/uL Neutrophils # (Manual) (1.3-7.7) k/uL Lymphocytes # (Manual) (1.0-4.8) k/uL PT 15.4 H (9.0-12.0) sec INR 1.6 H (<1.2) D-Dimer 1.32 H (<0.60) mg/L FEU ABG pO2 (83-108) mmHg ABG Total CO2 (19-24) mmol/L ABG O2 Saturation (94-97) % ABG Hematocrit (34.0-46.0) % Sodium (137-145) mmol/L Potassium (3.5-5.1) mmol/L Chloride (98-107) mmol/L Carbon Dioxide (22-30) mmol/L BUN (9-20) mg/dL Creatinine (0.66-1.25) mg/dL Glucose (74-99) mg/dL POC Glucose (mg/dL) 297 H (75-99) mg/dL Plasma Lactic Acid Rob (0.7-2.0) mmol/L Total Bilirubin (0.2-1.3) mg/dL AST (17-59) U/L Total Creatine Kinase (55-170) U/L Total Protein (6.3-8.2) g/dL Albumin (3.5-5.0) g/dL Urine Protein (Negative) Urine Blood (Negative) Ur Leukocyte Esterase (Negative) Urine RBC (0-5) /hpf Urine WBC (0-5) /hpf Urine WBC Clumps (None) /hpf Amorphous Sediment (None) /hpf Urine Bacteria (None) /hpf Urine Mucus (None) /hpf 05/25/17 05/25/17 05/25/17 Range/Units 16:00 16:55 22:44 WBC (3.8-10.6) k/uL Neutrophils # (Manual) (1.3-7.7) k/uL Lymphocytes # (Manual) (1.0-4.8) k/uL PT (9.0-12.0) sec INR (<1.2) D-Dimer (<0.60) mg/L FEU ABG pO2 65 L 63 L (83-108) mmHg ABG Total CO2 27 H (19-24) mmol/L ABG O2 Saturation 91.0 L (94-97) % ABG Hematocrit 48 H (34.0-46.0) % Sodium (137-145) mmol/L Potassium (3.5-5.1) mmol/L Chloride (98-107) mmol/L Carbon Dioxide (22-30) mmol/L BUN (9-20) mg/dL Creatinine (0.66-1.25) mg/dL Glucose (74-99) mg/dL POC Glucose (mg/dL) 314 H (75-99) mg/dL Plasma Lactic Acid Rob (0.7-2.0) mmol/L Total Bilirubin (0.2-1.3) mg/dL AST (17-59) U/L Total Creatine Kinase (55-170) U/L Total Protein (6.3-8.2) g/dL Albumin (3.5-5.0) g/dL Urine Protein (Negative) Urine Blood (Negative) Ur Leukocyte Esterase (Negative) Urine RBC (0-5) /hpf Urine WBC (0-5) /hpf Urine WBC Clumps (None) /hpf Amorphous Sediment (None) /hpf Urine Bacteria (None) /hpf Urine Mucus (None) /hpf 05/26/17 05/26/17 05/26/17 Range/Units 05:00 05:35 05:35 WBC 21.8 H (3.8-10.6) k/uL Neutrophils # (Manual) 20.4 H (1.3-7.7) k/uL Lymphocytes # (Manual) (1.0-4.8) k/uL PT (9.0-12.0) sec INR (<1.2) D-Dimer (<0.60) mg/L FEU ABG pO2 (83-108) mmHg ABG Total CO2 (19-24) mmol/L ABG O2 Saturation (94-97) % ABG Hematocrit (34.0-46.0) % Sodium 130 L (137-145) mmol/L Potassium 3.4 L (3.5-5.1) mmol/L Chloride 91 L (98-107) mmol/L Carbon Dioxide (22-30) mmol/L BUN 30 H (9-20) mg/dL Creatinine (0.66-1.25) mg/dL Glucose (74-99) mg/dL POC Glucose (mg/dL) (75-99) mg/dL Plasma Lactic Acid Rob (0.7-2.0) mmol/L Total Bilirubin (0.2-1.3) mg/dL AST (17-59) U/L Total Creatine Kinase (55-170) U/L Total Protein (6.3-8.2) g/dL Albumin (3.5-5.0) g/dL Urine Protein 1+ H (Negative) Urine Blood Moderate H (Negative) Ur Leukocyte Esterase Trace H (Negative) Urine RBC 10 H (0-5) /hpf Urine WBC 15 H (0-5) /hpf Urine WBC Clumps Rare H (None) /hpf Amorphous Sediment Rare H (None) /hpf Urine Bacteria Rare H (None) /hpf Urine Mucus Rare H (None) /hpf 05/26/17 05/26/17 05/26/17 Range/Units 05:35 08:20 09:47 WBC (3.8-10.6) k/uL Neutrophils # (Manual) (1.3-7.7) k/uL Lymphocytes # (Manual) (1.0-4.8) k/uL PT (9.0-12.0) sec INR (<1.2) D-Dimer (<0.60) mg/L FEU ABG pO2 (83-108) mmHg ABG Total CO2 (19-24) mmol/L ABG O2 Saturation (94-97) % ABG Hematocrit (34.0-46.0) % Sodium (137-145) mmol/L Potassium (3.5-5.1) mmol/L Chloride (98-107) mmol/L Carbon Dioxide (22-30) mmol/L BUN (9-20) mg/dL Creatinine (0.66-1.25) mg/dL Glucose (74-99) mg/dL POC Glucose (mg/dL) 111 H (75-99) mg/dL Plasma Lactic Acid Rob 2.3 H* 2.7 H* (0.7-2.0) mmol/L Total Bilirubin (0.2-1.3) mg/dL AST (17-59) U/L Total Creatine Kinase (55-170) U/L Total Protein (6.3-8.2) g/dL Albumin (3.5-5.0) g/dL Urine Protein (Negative) Urine Blood (Negative) Ur Leukocyte Esterase (Negative) Urine RBC (0-5) /hpf Urine WBC (0-5) /hpf Urine WBC Clumps (None) /hpf Amorphous Sediment (None) /hpf Urine Bacteria (None) /hpf Urine Mucus (None) /hpf Microbiology - Last 24 Hours (Table) 05/25/17 18:20 Gram Stain - Preliminary Pericardial Fluid Body Fluid Culture - Preliminary 05/25/17 18:20 Acid Fast Bacilli Culture - Preliminary Pericardial Fluid 05/25/17 18:20 Anaerobic Culture - Preliminary Pericardial Fluid - Imaging and Cardiology Chest x-ray: report reviewed, image reviewed Assessment and Plan (1) Alcoholism Status: Acute (2) Hyponatremia syndrome Status: Acute (3) Pericardial effusion Status: Acute (4) Right upper lobe pneumonia Status: Acute (5) ST elevation myocardial infarction (STEMI) Status: Acute Plan: 1. 225 mL of cloudy serosanguineous drainage was drained from the pericardial catheter. 2. Encourage incentive spirometry every hour while awake. 3. Pulmonary and intensive care management per Dr. Pop's recommendations. 4. Cardiology management per Dr. GRICELDA Gonzales's recommendations. 5. GI and DVT prophylaxis in place. 6. Repeat chest x-ray in a.m. 7. Further recommendations as the patient progresses. Time with Patient: Greater than 30
[2017-05-26] MEDS ORDERED: VANCOMYCIN 1,000 MG in SODIUM CHLORIDE 0.9% 250 ML IVPB STA (11:55)
[2017-05-26] MEDS ORDERED: IV VANCOMYCIN PER PHARMACY 1 EACH MISC MISCELLANE PRN (11:55)
[2017-05-26] MEDS ORDERED: cefTRIAXone 2,000 MG in SODIUM CHLORIDE 0.9% 100 ML IVPB STA (11:59)
[2017-05-26 12:12] LABS: Glucose,Whole Blood 107 mg/dL (75-99)
[2017-05-26] MEDS: INSULIN LISPRO (humaLOG) 300 UNIT/3 ML VIAL SQ SCH ×2 (12:18→18:07)
--- NOTE | 2017-05-26 12:31 | ECHOF ---
Referral Reason:LV FUNCTION MEASUREMENTS -------- HEIGHT: 152.4 cm WEIGHT: 95.3 kg BP: IVSd: 1.4 cm (0.6 - 1.1) LVIDd: 3.6 cm (3.9 - 5.3) LVPWd: 1.5 cm (0.6 - 1.1) IVSs: 1.7 cm LVIDs: 3.2 cm LVPWs: 1.6 cm Ao Diam: 3.8 cm (2.0 - 3.7) LA Diam: 3.4 cm (2.7 - 3.8) MV EXCURSION: 19.826 mm (> 18.000) MV EF SLOPE: 87 mm/s (70 - 150) EPSS: 0.3 cm RAP: 5.00 mmHg RVSP: 10.82 mmHg FINDINGS -------- Undetermined rhythm. grossly LV size & Function is normal. Eval Pericardial Effusion Pt Had Paracentesis done at 6:00pm on 05/27/17. There is a moderate, generalized pericardial effusion present. CONCLUSIONS -------- 1. Large Pericardial Effusion RA collapse and impending Tamponade. 2. Pt Had Pericardiocentesis done at 6:00pm on 05/25/17. 3. There is a moderate, generalized pericardial effusion present. ROTARY SURFACE GRINDER: Tracy Heath RDCS
[2017-05-26] MEDS ORDERED: IPRATROPIUM-ALBUTEROL 3 ML NEB INHALATION PRN (12:46)
[2017-05-26] MEDS ORDERED: VANCOMYCIN 2,000 MG in SODIUM CHLORIDE 0.9% 500 ML IVPB ONE (13:00)
--- NOTE | 2017-05-26 13:34 | CONS ---
This is a 52-year-old gentleman who apparently came to the emergency room yesterday with chest pain. He has a history of significant and chronic alcohol abuse, drinking somewhere between 18-25 beers a day. Also, smokes a pack a day. Has a history of hypertension and chronic liver disease from alcohol abuse. He apparently went to the [facility] and had a stent placed in his LAD. He was also found to have a large pericardial effusion. Dr. Multani was called and he came in to do a pericardiocentesis. The patient had about 380 mL drained from his pericardial space. He is currently undergoing alcohol withdrawal symptoms. The patient is currently in the ICU. Cannot get much history from him. Most of the history is obtained from the dictation from the primary staff. His home medications apparently are none. ALLERGIES: None. MEDICAL HISTORY: Not really well documented. He has some previous history of back surgery. He does smoke a pack a day. Drinks anywhere from 18-25 beers a day. No history as it relates to illicit drugs. REVIEW OF SYSTEMS: Unreliable. Current vital signs include temperature was 101, heart rate 127, respiratory rate 29-35, blood pressure 140/92, mean pressure 108, saturations are 92% on a nonrebreather. He is getting a 0.9 IV at 75 mL an hour. HEENT: Grossly unremarkable. Mucous membranes are moist. NECK: Supple. Full range of motion. No adenopathy. CARDIOVASCULAR: Reveals tachycardia. It is regular. LUNGS: Relatively clear. ABDOMEN: Soft. Mild distention. EXTREMITIES: Intact. No cyanosis, clubbing or edema. SKIN: Without rash. The patient had a chest x-ray today. It shows stable findings of cardiomegaly and bilateral parahilar edema. There is some right upper lobe consolidation as well. The rest of labs are reviewed. Medications are reviewed. His sodium was 130, potassium 3.4, chloride 91, CO2 of 27. BUN and creatinine were 30 and 1.0. Lactate was 2.3. His troponins were 0.019 and 0.030. White count 21.8, hemoglobin 16.7, hematocrit 50.1, platelet count 190,000. ASSESSMENT: 1. Pericardial effusion, status post pericardiocentesis. 2. ST segment elevation myocardial infarction, status post PCI with stent placement to the left anterior descending. 3. Chronic alcohol abuse. 4. Chronic liver disease. 5. Chronic tobacco use. 6. Alcohol withdrawal. PLAN: His medications are reviewed. Prognosis is very guarded. Will continue to follow. Medications will be reviewed. Additional recommendations and suggestions will be made. MILA
[2017-05-26 14:01] LABS: Hemoglobin A1C 5.3 % (4.2-6.1)
[2017-05-26] MEDS: MORPHINE SULFATE 2 MG/ML SYRINGE IVP PRN ×2 (14:35→20:50)
--- NOTE | 2017-05-26 15:02 | P.HPIM ---
History of Present Illness H&P Date: 05/26/17 Chief Complaint: Chest pain Mr. Araujo is a 52-year-old male with a past medical history of chronic low back pain, hypertension, alcohol abuse and nicotine dependence coming into the hospital with a chief complaint of chest pain. Patient has history of chronic low back pain and pain of his neck that has been going on but for the past 5 days his symptoms have worsened. Patient's chest pain got worse and he was complaining of 10 out of 10 and so called the EMS. The paramedics did perform an EKG which was suspicious for ST elevation [place]. He was given aspirin and nitroglycerin and transferred to [facility] for further evaluation. So the extruder operator horizontal youth development professional Dr. GRICELDA Gonzales was informed, who did an emergent cardiac catheterization. The patient had a stent placed in his LAD and was also noted to have a large pericardial effusion. So CT surgeon Dr. Multani came in and did a pericardiocentesis. There was 380 mL of fluid drained out. And the patient has been transferred to the ICU for further management and care. Overnight the patient became very combative and was trying to put all his lines and the pericardial catheter. The patient was placed on a CIWA scale and given 10 mg of Ativan without much improvement in his symptoms. So eventually he was given Haldol after which the patient did calm down. Currently the patient is in the ICU and has a pericardial catheter in place. As per the nursing staff report they drained around 230 mL of fluid drained out this morning. The patient did get 4 mg of Ativan since morning and is currently drowsy but arousable and follows simple commands. Review of Systems Review of systems could not be done as the patient is sedated with Ativan as he is on DT precautions Past Medical History Past Medical History: No Reported History History of Any Multi-Drug Resistant Organisms: None Reported Past Surgical History: Back Surgery Past Psychological History: No Psychological Hx Reported Smoking Status: Current every day smoker Past Alcohol Use History: Daily, Heavy Past Drug Use History: None Reported Medications and Allergies Home Medications Medication Instructions Recorded Confirmed Type No Known Home Medications [No 05/25/17 05/25/17 History Known Home Medications] Allergies Allergy/AdvReac Type Severity Reaction Status Date / Time No Known Allergies Allergy Verified 05/25/17 15:04 Physical Exam Vitals: Vital Signs Temp Pulse Resp BP Pulse Ox 05/26/17 13:00 101 H 26 H 109/71 91 L 05/26/17 12:30 102 H 29 H 104/69 90 L 05/26/17 12:00 102 H 27 H 104/70 91 L 05/26/17 11:30 107 H 31 H 138/93 91 L 05/26/17 11:00 121 H 43 H 125/73 88 L 05/26/17 10:30 123 H 37 H 153/92 93 L 05/26/17 10:00 129 H 44 H 164/89 84 L 05/26/17 09:30 126 H 39 H 165/91 90 L 05/26/17 09:08 99.9 F H 32 H 92 L 05/26/17 09:00 123 H 40 H 136/77 87 L 05/26/17 08:30 120 H 37 H 123/78 90 L 05/26/17 08:00 99.9 F H 118 H 31 H 130/73 99 05/26/17 07:00 127 H 48 H 140/92 92 L 05/26/17 06:00 127 H 44 H 142/85 94 L 05/26/17 05:00 121 H 29 H 120/79 92 L 05/26/17 04:00 101 F H 119 H 31 H 108/74 91 L 05/26/17 03:00 117 H 32 H 112/71 93 L 05/26/17 02:00 118 H 34 H 115/72 93 L 05/26/17 01:00 115 H 41 H 120/78 93 L 05/26/17 00:30 115 H 33 H 107/76 96 05/26/17 00:00 101.1 F H 121 H 40 H 138/90 93 L 05/25/17 23:30 124 H 43 H 140/93 90 L 05/25/17 23:00 122 H 14 134/76 95 05/25/17 22:30 120 H 8 L 92 L 05/25/17 22:00 105 H 14 122/89 95 05/25/17 21:30 106 H 50 H 160/107 98 05/25/17 21:00 114 H 155/95 85 L 05/25/17 20:30 114 H 17 173/102 92 L 05/25/17 20:00 99.1 F 112 H 36 H 173/102 93 L 05/25/17 19:30 112 H 35 H 173/102 88 L 05/25/17 19:10 114 H 36 H 173/102 95 05/25/17 19:00 112 H 30 H 94 L 05/25/17 18:50 115 H 28 H 164/106 90 L 05/25/17 18:40 114 H 33 H 164/106 94 L 05/25/17 18:30 114 H 29 H 164/106 92 L 05/25/17 18:20 110 H 30 H 144/85 94 L 05/25/17 18:10 109 H 40 H 127/83 96 05/25/17 18:08 110 H 30 H 127/83 05/25/17 18:00 120 H 22 127/83 96 05/25/17 17:50 122 H 33 H 134/96 95 05/25/17 17:40 123 H 43 H 119/91 95 05/25/17 17:36 98.6 F 122 H 25 H 119/91 95 05/25/17 17:30 123 H 40 H 131/86 95 05/25/17 17:26 99.1 F 123 H 30 H 131/86 05/25/17 17:20 122 H 34 H 131/86 95 05/25/17 17:10 123 H 49 H 116/86 94 L 05/25/17 17:00 119 H 36 H 116/86 94 L 05/25/17 16:53 97.7 F 119 H 05/25/17 15:15 127 H 18 138/74 91 L 05/25/17 15:00 129 H 24 107/82 92 L 05/25/17 14:56 99.2 F 129 H 30 H 122/88 Intake and Output 05/25/17 05/26/17 05/26/17 22:59 06:59 14:59 Intake Total 789.5 600 1988 Output Total 1470 440 445 Balance -680.5 160 1543 Intake: IV 789.5 600 1375 Piperacillin-Tazobactam 3 50 .375 gm In Dextrose/Water 1 50ml.bag @ 12.5 mls/hr IVPB Q8HR [facility] Rx#: [id number] Potassium Chloride 10 meq 200 Lidocaine 2% Inj 10 mg In Sodium Chloride 0.9% 100 ml @ 100 mls/hr IV Q1HR [facility] Rx#:[id number] Potassium Chloride 20 meq 100 Lidocaine 2% Inj 20 mg In Sodium Chloride 0.9% 100 ml @ 55.5 mls/hr IVPB ONCE ONE Rx#:[id number] Sodium Chloride 0.9% 1, 525 600 525 000 ml @ 75 mls/hr IV . [id number] [facility] Rx#:[id number] Vancomycin 2,000 mg In 500 Sodium Chloride 0.9% 500 ml @ 167 mls/hr IVPB ONCE ONE Rx#:[id number] cefTRIAXone 2,000 mg In 100 Sodium Chloride 0.9% 100 ml @ 100 mls/hr IVPB Q24HR [facility] Rx#:[id number] Blood Product 0 613 Ffp 24 Cpd Unit 0 278 [id number] Ffp 24 Cpd Unit 0 335 [id number] Output: Gastric Drainage 430 Urine 1040 440 445 Other: Voiding Method Indwelling Catheter Indwelling Catheter Weight 95 kg 92.2 kg GENERAL EXAM GEN. APPEARANCE: alert, in no apparent distress HEAD EXAM: atraumatic, normocephalic, normal inspection EYE EXAM: normal appearance, PERRL, EOMI. Absent: scleral icterus, conjunctival injection, periorbital swelling NECK EXAM: normal inspection. Absent: tenderness, meningismus, full ROM, lymphadenopathy RESPIRATORY EXAM: Bilateral wheezing diminished breath sounds in all lung [place] CARDIOVASCULAR EXAM: Tachycardia, pericardial catheter in place GI/ABDOMINAL EXAM: soft, normal bowel sounds. Absent: distended, tenderness, guarding, rebound, rigid EXTREMITIES EXAM: normal inspection, full ROM, normal capillary refill. Absent : tenderness, pedal edema, joint swelling, calf tenderness BACK EXAM: normal inspection NEUROLOGICAL EXAM: Drowsy but follows simple commands SKIN EXAM: warm, dry, intact, normal color. Absent: rash Results CBC & Chem 7: 05/26/17 05:35 05/26/17 13:53 Labs: Abnormal Lab Results - Last 24 Hours (Table) 05/25/17 05/25/17 05/25/17 Range/Units 15:00 15:00 15:00 WBC 29.7 H* (3.8-10.6) k/uL Neutrophils # (Manual) 28.7 H (1.3-7.7) k/uL Lymphocytes # (Manual) 0.6 L (1.0-4.8) k/uL PT (9.0-12.0) sec INR (<1.2) D-Dimer (<0.60) mg/L FEU ABG pO2 (83-108) mmHg ABG Total CO2 (19-24) mmol/L ABG O2 Saturation (94-97) % ABG Hematocrit (34.0-46.0) % Sodium 123 L (137-145) mmol/L Potassium (3.5-5.1) mmol/L Chloride 85 L (98-107) mmol/L Carbon Dioxide 19 L (22-30) mmol/L BUN (9-20) mg/dL Creatinine 1.35 H (0.66-1.25) mg/dL Glucose 264 H (74-99) mg/dL POC Glucose (mg/dL) (75-99) mg/dL Plasma Lactic Acid Rob (0.7-2.0) mmol/L Total Bilirubin 2.2 H (0.2-1.3) mg/dL AST 117 H (17-59) U/L Total Creatine Kinase 29 L (55-170) U/L Total Protein 6.2 L (6.3-8.2) g/dL Albumin 3.2 L (3.5-5.0) g/dL Urine Protein (Negative) Urine Blood (Negative) Ur Leukocyte Esterase (Negative) Urine RBC (0-5) /hpf Urine WBC (0-5) /hpf Urine WBC Clumps (None) /hpf Amorphous Sediment (None) /hpf Urine Bacteria (None) /hpf Urine Mucus (None) /hpf 05/25/17 05/25/17 05/25/17 Range/Units 15:00 15:00 15:09 WBC (3.8-10.6) k/uL Neutrophils # (Manual) (1.3-7.7) k/uL Lymphocytes # (Manual) (1.0-4.8) k/uL PT 15.4 H (9.0-12.0) sec INR 1.6 H (<1.2) D-Dimer 1.32 H (<0.60) mg/L FEU ABG pO2 (83-108) mmHg ABG Total CO2 (19-24) mmol/L ABG O2 Saturation (94-97) % ABG Hematocrit (34.0-46.0) % Sodium (137-145) mmol/L Potassium (3.5-5.1) mmol/L Chloride (98-107) mmol/L Carbon Dioxide (22-30) mmol/L BUN (9-20) mg/dL Creatinine (0.66-1.25) mg/dL Glucose (74-99) mg/dL POC Glucose (mg/dL) 297 H (75-99) mg/dL Plasma Lactic Acid Rob (0.7-2.0) mmol/L Total Bilirubin (0.2-1.3) mg/dL AST (17-59) U/L Total Creatine Kinase (55-170) U/L Total Protein (6.3-8.2) g/dL Albumin (3.5-5.0) g/dL Urine Protein (Negative) Urine Blood (Negative) Ur Leukocyte Esterase (Negative) Urine RBC (0-5) /hpf Urine WBC (0-5) /hpf Urine WBC Clumps (None) /hpf Amorphous Sediment (None) /hpf Urine Bacteria (None) /hpf Urine Mucus (None) /hpf 05/25/17 05/25/17 05/25/17 Range/Units 16:00 16:55 22:44 WBC (3.8-10.6) k/uL Neutrophils # (Manual) (1.3-7.7) k/uL Lymphocytes # (Manual) (1.0-4.8) k/uL PT (9.0-12.0) sec INR (<1.2) D-Dimer (<0.60) mg/L FEU ABG pO2 65 L 63 L (83-108) mmHg ABG Total CO2 27 H (19-24) mmol/L ABG O2 Saturation 91.0 L (94-97) % ABG Hematocrit 48 H (34.0-46.0) % Sodium (137-145) mmol/L Potassium (3.5-5.1) mmol/L Chloride (98-107) mmol/L Carbon Dioxide (22-30) mmol/L BUN (9-20) mg/dL Creatinine (0.66-1.25) mg/dL Glucose (74-99) mg/dL POC Glucose (mg/dL) 314 H (75-99) mg/dL Plasma Lactic Acid Rob (0.7-2.0) mmol/L Total Bilirubin (0.2-1.3) mg/dL AST (17-59) U/L Total Creatine Kinase (55-170) U/L Total Protein (6.3-8.2) g/dL Albumin (3.5-5.0) g/dL Urine Protein (Negative) Urine Blood (Negative) Ur Leukocyte Esterase (Negative) Urine RBC (0-5) /hpf Urine WBC (0-5) /hpf Urine WBC Clumps (None) /hpf Amorphous Sediment (None) /hpf Urine Bacteria (None) /hpf Urine Mucus (None) /hpf 05/26/17 05/26/17 05/26/17 Range/Units 05:00 05:35 05:35 WBC 21.8 H (3.8-10.6) k/uL Neutrophils # (Manual) 20.4 H (1.3-7.7) k/uL Lymphocytes # (Manual) (1.0-4.8) k/uL PT (9.0-12.0) sec INR (<1.2) D-Dimer (<0.60) mg/L FEU ABG pO2 (83-108) mmHg ABG Total CO2 (19-24) mmol/L ABG O2 Saturation (94-97) % ABG Hematocrit (34.0-46.0) % Sodium 130 L (137-145) mmol/L Potassium 3.4 L (3.5-5.1) mmol/L Chloride 91 L (98-107) mmol/L Carbon Dioxide (22-30) mmol/L BUN 30 H (9-20) mg/dL Creatinine (0.66-1.25) mg/dL Glucose (74-99) mg/dL POC Glucose (mg/dL) (75-99) mg/dL Plasma Lactic Acid Rob (0.7-2.0) mmol/L Total Bilirubin (0.2-1.3) mg/dL AST (17-59) U/L Total Creatine Kinase (55-170) U/L Total Protein (6.3-8.2) g/dL Albumin (3.5-5.0) g/dL Urine Protein 1+ H (Negative) Urine Blood Moderate H (Negative) Ur Leukocyte Esterase Trace H (Negative) Urine RBC 10 H (0-5) /hpf Urine WBC 15 H (0-5) /hpf Urine WBC Clumps Rare H (None) /hpf Amorphous Sediment Rare H (None) /hpf Urine Bacteria Rare H (None) /hpf Urine Mucus Rare H (None) /hpf 05/26/17 05/26/17 05/26/17 Range/Units 05:35 08:20 09:47 WBC (3.8-10.6) k/uL Neutrophils # (Manual) (1.3-7.7) k/uL Lymphocytes # (Manual) (1.0-4.8) k/uL PT (9.0-12.0) sec INR (<1.2) D-Dimer (<0.60) mg/L FEU ABG pO2 (83-108) mmHg ABG Total CO2 (19-24) mmol/L ABG O2 Saturation (94-97) % ABG Hematocrit (34.0-46.0) % Sodium (137-145) mmol/L Potassium (3.5-5.1) mmol/L Chloride (98-107) mmol/L Carbon Dioxide (22-30) mmol/L BUN (9-20) mg/dL Creatinine (0.66-1.25) mg/dL Glucose (74-99) mg/dL POC Glucose (mg/dL) 111 H (75-99) mg/dL Plasma Lactic Acid Rob 2.3 H* 2.7 H* (0.7-2.0) mmol/L Total Bilirubin (0.2-1.3) mg/dL AST (17-59) U/L Total Creatine Kinase (55-170) U/L Total Protein (6.3-8.2) g/dL Albumin (3.5-5.0) g/dL Urine Protein (Negative) Urine Blood (Negative) Ur Leukocyte Esterase (Negative) Urine RBC (0-5) /hpf Urine WBC (0-5) /hpf Urine WBC Clumps (None) /hpf Amorphous Sediment (None) /hpf Urine Bacteria (None) /hpf Urine Mucus (None) /hpf 05/26/17 05/26/17 Range/Units 12:11 13:53 WBC (3.8-10.6) k/uL Neutrophils # (Manual) (1.3-7.7) k/uL Lymphocytes # (Manual) (1.0-4.8) k/uL PT (9.0-12.0) sec INR (<1.2) D-Dimer (<0.60) mg/L FEU ABG pO2 (83-108) mmHg ABG Total CO2 (19-24) mmol/L ABG O2 Saturation (94-97) % ABG Hematocrit (34.0-46.0) % Sodium (137-145) mmol/L Potassium 3.4 L (3.5-5.1) mmol/L Chloride (98-107) mmol/L Carbon Dioxide (22-30) mmol/L BUN (9-20) mg/dL Creatinine (0.66-1.25) mg/dL Glucose (74-99) mg/dL POC Glucose (mg/dL) 107 H (75-99) mg/dL Plasma Lactic Acid Rob (0.7-2.0) mmol/L Total Bilirubin (0.2-1.3) mg/dL AST (17-59) U/L Total Creatine Kinase (55-170) U/L Total Protein (6.3-8.2) g/dL Albumin (3.5-5.0) g/dL Urine Protein (Negative) Urine Blood (Negative) Ur Leukocyte Esterase (Negative) Urine RBC (0-5) /hpf Urine WBC (0-5) /hpf Urine WBC Clumps (None) /hpf Amorphous Sediment (None) /hpf Urine Bacteria (None) /hpf Urine Mucus (None) /hpf Microbiology - Last 24 Hours (Table) 05/26/17 05:00 Urine Culture - Preliminary Urine,Catheterized 05/25/17 18:20 Gram Stain - Preliminary Pericardial Fluid Body Fluid Culture - Preliminary 05/25/17 18:20 Acid Fast Bacilli Culture - Preliminary Pericardial Fluid 05/25/17 18:20 Anaerobic Culture - Preliminary Pericardial Fluid Assessment and Plan Plan: ASSESSMENT ST elevation [place] status post stenting of LAD Pericardial effusion Alcohol withdrawal delirium tremens Chronic liver disease Chronic alcohol abuse Chronic nicotine dependence PLAN Patient had pericardiocentesis with 380 mL drained yesterday, 230 mL of fluid obtained today. He has been started on aspirin, Plavix and a statin. Continue with DT precautions. Continue with GI DVT prophylaxis. Further recommendations to follow depending on the progress of the patient. Overall prognosis guarded.
[2017-05-26] MEDS: IPRATROPIUM-ALBUTEROL 3 ML NEB INHALATION SCH ×2 (15:37→19:22)
[2017-05-26 17:28] LABS: Glucose,Whole Blood 110 mg/dL (75-99)
--- NOTE | 2017-05-26 17:39 | PN ---
This gentleman was seen by me yesterday. I performed stenting of mid LAD when he presented with ST elevation [place]. However, it turned out that he had significant pericardial effusion. Dr. Multani saw him yesterday. I advised a pericardial window but he felt he could drain the fluid percutaneously and this was accomplished and 328 mL of fluid was drained. Today an additional 200 mL was drained. The fluid is growing gram positive cocci. I am recommending blood cultures and antibiotics to be continued for now and will seek input from infectious disease through Dr. Carlton. He is hemodynamically stable. Patient is now in delirium tremens secondary to alcohol. Patient has history of alcoholism. Delirium tremens protocols are in place. S1/S2 heard normally. Short systolic murmur noted. Lungs reveal diminished air entry. Abdomen and lower extremity exam unchanged. Prognosis is very poor for this patient with gram positive cocci from pericardial fluid, a pneumonia on chest x-ray and also evidence of delirium tremens and recent percutaneous coronary intervention. Prognosis is poor but we will continue the current aggressive treatment that we are doing and seek input from infectious disease as well. Will repeat an echocardiogram tomorrow. Blood cultures today. There is no family for me to talk to and since yesterday we made attempts to contact his brother and ex- but there was no meaningful progress made. We will try again today. MILA
[2017-05-26 21:13] LABS: Glucose,Whole Blood 112 mg/dL (75-99)
[2017-05-26] MEDS: amLODIPine 5 MG TAB PO SCH (21:13)
[2017-05-27] MEDS: VANCOMYCIN 1,500 MG in SODIUM CHLORIDE 0.9% 250 ML IVPB SCH ×3 (00:04→23:50)
[2017-05-27] MEDS: LORazepam 2 MG/ML SYRINGE IV PRN ×3 (01:09→06:05)
[2017-05-27] MEDS: MORPHINE SULFATE 2 MG/ML SYRINGE IVP PRN ×2 (01:41→05:29)
[2017-05-27] MEDS: SODIUM CHLORIDE 0.9% 1,000 ML IV SCH ×4 (01:41→23:52)
[2017-05-27 04:34] LABS: Basophils # (A) 0.1 k/uL (0-0.2); Basophils % (A) 0 %; CH 31.6; CHCM 32.7; Eosinophils # (A) 0.1 k/uL (0-0.7); Eosinophils % (A) 0 %; HCT 47.4 % (39.0-53.0); HDW 2.52; HGB 15.5 gm/dL (13.0-17.5); Luc # (Auto) 0.23; Luc % (Auto) 1; Lymphocytes # (A) 0.7 k/uL (1.0-4.8); Lymphocytes % (A) 3 %; MCH 31.9 pg (25.0-35.0); MCHC 32.8 g/dL (31.0-37.0); MCV 97.1 fL (80.0-100.0); Mean Platelet Volume 8.2; Monocytes # (A) 0.8 k/uL (0-1.0); Monocytes % (A) 3 %; Neutrophils # (A) 26.7 k/uL (1.3-7.7); Neutrophils % (A) 93 %; RBC 4.88 m/uL (4.30-5.90); RDW 13.3 % (11.5-15.5); WBC (Perox) 28.61
[2017-05-27 04:38] LABS: WBC 28.6 k/uL (3.8-10.6)
[2017-05-27 05:08] LABS: Anion Gap 12 mmol/L; Calcium 8.1 mg/dL (8.4-10.2); Carbon Dioxide 23 mmol/L (22-30); Chloride 102 mmol/L (98-107); Glucose 131 mg/dL (74-99); Non-African American GFR(MDRD) >60 (>60 ml/min/1.73 sqM); Sodium 137 mmol/L (137-145)
[2017-05-27 05:11] LABS: Potassium 4.5 mmol/L (3.5-5.1)
[2017-05-27 05:12] LABS: Blood Urea Nitrogen 34 mg/dL (9-20); Magnesium 2.6 mg/dL (1.6-2.3); Phosphorous 3.2 mg/dL (2.5-4.5)
[2017-05-27] MEDS: IPRATROPIUM-ALBUTEROL 3 ML NEB INHALATION SCH ×4 (07:07→19:23)
--- NOTE | 2017-05-27 07:47 | XR ---
EXAMINATION TYPE: XR chest 1V DATE OF EXAM: 05/27/2017 CLINICAL HISTORY: Shortness of breath progress study. TECHNIQUE: Single AP portable semiupright view of the chest is obtained. COMPARISON: Chest x-ray from one day earlier FINDINGS: Nasogastric tube is redemonstrated, tip less well-seen on current study. There is increasi ng more diffuse bilateral lung opacities with relative sparing of lung apices. The cardiac silhouett e size remains enlarged. The osseous structures are intact. IMPRESSION: Cardiomegaly with worsening diffuse bilateral edema and/or infiltrates, consider ARDS.
[2017-05-27 08:08] LABS: Glucose,Whole Blood 132 mg/dL (75-99)
[2017-05-27] MEDS: METOPROLOL TARTRATE 25 MG TAB PO SCH ×3 (08:08→21:40)
[2017-05-27] MEDS: INSULIN LISPRO (humaLOG) 300 UNIT/3 ML VIAL SQ SCH ×4 (08:08→23:59)
[2017-05-27] MEDS: PANTOPRAZOLE 40 MG/10 ML VIAL IV SCH (08:09)
[2017-05-27] MEDS: ASPIRIN 81 MG CHEW PO SCH (08:09)
[2017-05-27] MEDS: CLOPIDOGREL 75 MG TAB PO SCH (08:09)
[2017-05-27] MEDS: ATORVASTATIN 40 MG TAB PO SCH (08:09)
[2017-05-27] MEDS: cefTRIAXone 2,000 MG in SODIUM CHLORIDE 0.9% 100 ML IVPB SCH (08:16)
[2017-05-27] MEDS ORDERED: PROPOFOL 50 ML IV ONE (09:18)
[2017-05-27] MEDS ORDERED: SUCCINYLCHOLINE CHLORIDE 100 MG/5 ML SYR IV ONE (09:18)
--- NOTE | 2017-05-27 09:30 | P.PN ---
Subjective 52-year-old gentleman, known history of alcoholism, presented to the hospital because of increased chest pain. He was found to have ST segment elevation myocardial infarction. The patient was taken to the [facility] on an emergent basis and he had stents placed into his LAD for a 70% LAD lesion. He was also found to have a large pericardial effusion and leukocytosis. He was seen by surgery and he underwent a bedside pericardiocentesis and total of 380 mL of fluid was drained from the pericardial space. Initial cultures are growing up hemolytic strep and the patient is or the being covered with a combination of Rocephin and vancomycin. Note that his initial chest x-ray on admission showed a right upper lobe consolidation and subsequent x-ray showed diffuse lateral pulmonary infiltrates typical of an underlying ARDS. The patient also went into delirium tremens. Overnight she had become quite a bit agitated and he had required a total of 8 mg of Ativan throughout the night. This morning, the patient is lethargic, and 2. restraints, confused and sometimes agitated. He is on a BiPAP at a pressure of 12/5 cm of water with an FiO2 of 100%. Earlier he was on a percent and he had to be brought up to 100% to maintain a saturation above 90%. He has good pulses in all 4 extremities. He is producing approximately 50 mL an hour. He is on normal saline at the rate of 75 mL an hour. White cell count remains elevated at 28.6. He is on no pressors for now. No significant electrode abnormalities. No acidosis. Echocardiogram that was done earlier showed a preserved LV function. The patient has a pericardial tube in place and total amount of output that was drained this morning is around 125, brownish to yellowish pericardial fluid. Note that the fluid analysis was done earlier showed elevated LDH and protein. White cell count is also elevated at 44,000 with 92% on a nuclear white cells. Objective - Vital Signs Vital signs: Vital Signs Temp 97.8 F 05/27/17 00:00 Pulse 107 H 05/27/17 07:32 Resp 30 H 05/27/17 07:00 BP 136/86 05/27/17 07:00 Pulse Ox 91 L 05/27/17 07:00 Intake & Output 05/26/17 05/27/17 05/27/17 18:59 06:59 18:59 Intake Total 2563 1225 Output Total 960 905 Balance 1603 320 Weight 94 kg Intake: IV 1950 1225 Piperacillin-Tazobactam 3 50 .375 gm In Dextrose/Water 1 50ml.bag @ 12.5 mls/hr IVPB Q8HR [facility] Rx#: [id number] Potassium Chloride 10 meq 400 Lidocaine 2% Inj 10 mg In Sodium Chloride 0.9% 100 ml @ 100 mls/hr IV Q1HR [facility] Rx#:[id number] Sodium Chloride 0.9% 1, 525 900 000 ml @ 75 mls/hr IV . [id number] [facility] Rx#:[id number] Vancomycin 1,500 mg In 250 Sodium Chloride 0.9% 250 ml @ 125 mls/hr IVPB Q12H [facility] Rx#:[id number] Vancomycin 2,000 mg In 875 75 Sodium Chloride 0.9% 500 ml @ 167 mls/hr IVPB ONCE ONE Rx#:[id number] cefTRIAXone 2,000 mg In 100 Sodium Chloride 0.9% 100 ml @ 100 mls/hr IVPB Q24HR [facility] Rx#:[id number] Blood Product 613 Ffp 24 Cpd Unit 278 [id number] Ffp 24 Cpd Unit 335 [id number] Output: Drainage 225 Anterior Medial Chest 225 Urine 735 905 Other: Voiding Method Indwelling Catheter Indwelling Catheter ABP, PAP, CO, CI - Last Documented Arterial Blood Pressure 184/99 - Exam The patient is currently lethargic, confused, slightly agitated, on 2 point restraints and is on a full face BiPAP mask.Head exam was generally normal. There was no scleral icterus or corneal arcus. Mucous membranes were moist.Neck was supple and without jugular venous distension, thyromegaly, or carotid bruits. Carotids were easily palpable bilaterally. There was no adenopathy. Lung sounds are diminished bilaterally and there is crackles throughout lung [place]. Scattered rhonchi. No wheezes appreciated. Heart sounds are regular, positive S1-S2, no significant murmurs appreciated. There is a pericardial chest tube in place.Abdominal exam revealed normal bowel sounds. The abdomen was soft, non-tender, and without masses, organomegaly, or appreciable enlargement of the abdominal aorta.Examination of the extremities revealed easily palpable radial, femoral and pedal pulses. There was no cyanosis, clubbing or edema. Neurologically the patient is moving all 4 extremities without any limitation. No focal neurological deficit at this point. He is confused and unable to answer questions appropriately. Some mild tremors at rest is also appreciated. - Labs CBC & Chem 7: 05/27/17 04:19 05/27/17 04:19 Labs: Abnormal Lab Results - Last 24 Hours (Table) 05/26/17 05/26/17 05/26/17 Range/Units 09:47 12:11 13:53 WBC (3.8-10.6) k/uL Neutrophils # (1.3-7.7) k/uL Lymphocytes # (1.0-4.8) k/uL Potassium 3.4 L (3.5-5.1) mmol/L BUN (9-20) mg/dL Creatinine (0.66-1.25) mg/dL Glucose (74-99) mg/dL POC Glucose (mg/dL) 107 H (75-99) mg/dL Plasma Lactic Acid Rob 2.7 H* (0.7-2.0) mmol/L Calcium (8.4-10.2) mg/dL Magnesium (1.6-2.3) mg/dL 05/26/17 05/26/17 05/27/17 Range/Units 17:26 21:11 04:19 WBC 28.6 H* (3.8-10.6) k/uL Neutrophils # 26.7 H (1.3-7.7) k/uL Lymphocytes # 0.7 L (1.0-4.8) k/uL Potassium (3.5-5.1) mmol/L BUN (9-20) mg/dL Creatinine (0.66-1.25) mg/dL Glucose (74-99) mg/dL POC Glucose (mg/dL) 110 H 112 H (75-99) mg/dL Plasma Lactic Acid Rob (0.7-2.0) mmol/L Calcium (8.4-10.2) mg/dL Magnesium (1.6-2.3) mg/dL 05/27/17 05/27/17 Range/Units 04:19 08:05 WBC (3.8-10.6) k/uL Neutrophils # (1.3-7.7) k/uL Lymphocytes # (1.0-4.8) k/uL Potassium (3.5-5.1) mmol/L BUN 34 H (9-20) mg/dL Creatinine 0.60 L (0.66-1.25) mg/dL Glucose 131 H (74-99) mg/dL POC Glucose (mg/dL) 132 H (75-99) mg/dL Plasma Lactic Acid Rob (0.7-2.0) mmol/L Calcium 8.1 L (8.4-10.2) mg/dL Magnesium 2.6 H (1.6-2.3) mg/dL Microbiology - Last 24 Hours (Table) 05/25/17 18:20 Acid Fast Bacilli Smear - Final Pericardial Fluid Acid Fast Bacilli Culture - Preliminary 05/25/17 18:20 Gram Stain - Preliminary Pericardial Fluid Body Fluid Culture - Preliminary Alpha Hemolytic Streptococcus 05/26/17 05:00 Urine Culture - Preliminary Urine,Catheterized Assessment and Plan Plan: Assessment 1 acute hypoxic respiratory failure with development of diffuse breath and pulmonary infiltrates. Cardiogenic pulmonary edema is felt to be less likely. Rule out ARDS/noncardiogenic pulmonary edema. Rule out postpneumonic ARDS nontender the patient is an extensive consolidation of the right upper lobe at a time of admission. 2 acute STEMI status post emergent cardiac catheterization and stenting of the LAD 3 pericardial effusion/possibly infected pericardial fluid with cultures growing alpha, thick strep with elevated white cell count both in the serum and in the pericardial fluid. Status post pericardial window and insertion of a pericardial tube 4 alcoholism 5 delirium tremens currently inactive in CIWA protocol 6 hyponatremia, recovered 7 mild coagulopathy at presentation Plan The patient will need intubation and the patient needs to be placed on a mechanical ventilator to secure airway and oxygenation. This intubation will be done emergently here in the ICU. The family will be informed if there is any contact number that we can reach. Meanwhile her secure the patient's airway. We'll sedated with Diprivan post intubation. He will likely need a bronchoscopy and bronchial lavage with a possibility of a diffuse bilateral pneumonia/ARDS. Continue Rocephin and vancomycin for now. Continue IV fluids. Monitor hemodynamics. Monitor the output from the chest tube. Proceed with a computed tomography scan of the chest post intubation. Blood cultures. Blood gases. Condition is critical. We'll continue to follow. This evaluation was done and more than 30 minutes. Time with Patient: Greater than 30
[2017-05-27] MEDS ORDERED: RX INFO: IV CONTRAST WAS GIVEN 1 EACH MISC MISCELLANE PRN (09:55)
[2017-05-27] MEDS ORDERED: PROPOFOL 500 MG in EMPTY BAG 1 BAG IV SCH (10:00)
[2017-05-27 10:15] LABS: ABG HCO3 25 mmol/L (21-25); ABG PCO2 40 mmHg (35-45); ABG PH 7.42 (7.35-7.45); ABG PO2 90 mmHg (83-108)
[2017-05-27 10:16] LABS: ABG Base Excess 1.2 mmol/L; ABG TCO2 26 mmol/L (19-24)
[2017-05-27] MEDS ORDERED: CISATRACURIUM 2 MG/ML 5 ML VIAL IV ONE (10:30)
--- NOTE | 2017-05-27 10:38 | P.CNPUL ---
History of Present Illness Consult date: 05/27/17 Chief complaint: Sepsis, fever, hypotension History of present illness: A 40-year-old female patient well-known to us due to her multiple medical problems and comorbidities. The patient was recently in the hospital and the patient was discharged home on 05/16/2017 after being treated for a candidal septicemia. Back then the patient had Rachel parapsilosis positive cultures and after being treated here in the hospital the patient was discharged home on high dose Diflucan 800 mg by mouth daily. This patient has had previous history of urinary tract infections. The patient is paraplegic below the waist and the patient has a very catheter. She has had multiple UTIs in the past for which she was treated here in the hospital and among these infections are enterococcus faecalis, acinetobacter and stenotrophomonas and Pseudomonas. The patient came to the burst department on 05/26/2017 at [facility] due to concerns of infection in shock. The patient had a temperature of 11.5 and a lactic acid level of 2.5. A femoral line catheter was inserted into the left femoral vein. The patient was given IV fluids and pressors. Apparently a total of 2 L of IV fluid was given and she was also started on pressors. Her chest x-ray showed pulmonary vessel congestion and atelectatic changes in lung bases bilaterally more so on the right. The patient was in the high flow oxygen and subsequently she was placed on on the percent nonrebreather facemask. She got moved to the intensive care unit. Overnight ID was involved in the case and the patient was placed on a combination of micafungin, daptomycin and gentamicin. This morning, the patient is awake and alert and she does not have any significant complaints. Pressors of been weaned off and discontinued. The patient is currently off norepinephrine infusion. Antibiotics avoidable infusing the patient has been given more than 3 L of oxygen nasal cannula. She is still hypoxic. She was present 100% on a beta facemask however despite that she is not having any respiratory difficulties and the patient's pulse ox around 97% on room air. Chest x-ray findings remain unchanged. The patient has a triple lumen catheter still in place. Exit site of the suprapubic catheter is clean and intact. The patient has a diverticular colostomy which is functional and there is no evidence of any diarrhea or abdominal distention. The patient also has superficial grade 2 1/2-2 cm wound on her coccyx which is nondraining in the bases clean. No evidence of any cellulitis involving the lower extremities are the size. The patient has no mental status change. No respiratory distress. No chest pain. No cough or sputum production. No neck stiffness. No headache. No change in the vision. No previous history of any cardiac murmur and no cardiac murmur can be appreciated today. Blood cultures were resent. The latest echocardiogram from 2016 showed mild concentric LVH with an ejection fraction of 50-55% and the patient had moderate degree of pulmonary hypertension with a PA pressure of 49. Mild mitral regurgitation was also seen. The patient has been off pressors for the past 5 hours. No significant fever for now. She did have a run of nonsustained V. tach last night and this lasted for a total of 30 seconds and resolved spontaneously. The magnesium level was 1.60 note that there is an obvious drug interaction also nontender the patient on a combination of Seroquel and Diflucan and the last being at a higher dose. Her current EKG sinus and her corrected QT interval is 0.45 seconds. She also has an IVC filter in place pH is on long- term and to coagulation with Xarelto. Review of Systems Full review of system was done and the positive finding is almost above in history of present illness All systems: negative Constitutional: Reports weakness, Denies chills, Denies fever Eyes: denies blurred vision, denies pain Ears, nose, mouth and throat: Denies headache, Denies sore throat Cardiovascular: Denies chest pain, Denies shortness of breath Respiratory: Denies cough Gastrointestinal: Denies abdominal pain, Denies diarrhea, Denies nausea, Denies vomiting Genitourinary: Reports incontinence Musculoskeletal: Denies myalgias Integumentary: Denies pruritus, Denies rash Neurological: Denies numbness, Denies weakness Psychiatric: Denies anxiety, Denies depression Endocrine: Denies fatigue, Denies weight change Past Medical History Past Medical History: No Reported History Additional Past Medical History / Comment(s): Acute fungal uremia with Rachel breath cillosis on 05/13/2017, secondary to above sedation, sacral decubitus ulceration stage III, MS with paraplegia and the patient is essentially bedridden and the patient has primary progressive multiple sclerosis and she has been treated with Copaxone in the past and currently she is bedbound, frequent urinary tract infections, suprapubic catheter, diverticular colostomy, neurogenic bladder, hypertension, GERD, chronic DVT and previous history of pulmonary embolism and the patient has an IVC filter and maintained on Xarelto, previous ventilator dependent respiratory failure due to complications of sepsis and pneumonia and hypercapnic respiratory failure, neuromuscular weakness involving the lower extremities, chronic pain, chronic hepatitis C, previous history of IVDA, chronic hypoxic respiratory failure and the patient is a maintained on oxygen at 4 L/m nasal cannula, History of Any Multi-Drug Resistant Organisms: None Reported Past Surgical History: Back Surgery Additional Past Surgical History / Comment(s): IVC filter placement, suprapubic catheter placement, insertion and removal of PICC line as, left hand surgery with insertion of metal pins, colostomy, surgical debridement of coccyx Past Psychological History: No Psychological Hx Reported, Anxiety (The patient is a smoker, the exact amount varies although we are suspicious that she smokes approximately a pack of cigars a day and she has [id number] smoking history. She denies medical marijuana, street marijuana, alcohol. She lives with her mother and and as well as her mom's boyfriend. There are cats in the house. She is currently disabled. No travel history. She has home care. She uses a [employer] lift to get from bed), Bipolar, Depression Smoking Status: Current every day smoker Past Alcohol Use History: Daily, Heavy Past Drug Use History: None Reported Medications and Allergies Home Medications Medication Instructions Recorded Confirmed Type No Known Home Medications [No 05/25/17 05/25/17 History Known Home Medications] Allergies Allergy/AdvReac Type Severity Reaction Status Date / Time No Known Allergies Allergy Verified 05/25/17 15:04 Physical Exam Vitals: Vital Signs Temp Pulse Resp BP Pulse Ox 05/27/17 07:32 107 H 05/27/17 07:10 110 H 05/27/17 07:00 109 H 30 H 136/86 91 L 05/27/17 06:00 112 H 34 H 157/94 91 L 05/27/17 05:00 112 H 36 H 140/81 91 L 05/27/17 04:00 107 H 30 H 127/78 91 L 05/27/17 03:44 29 H 05/27/17 03:00 105 H 29 H 124/83 91 L 05/27/17 02:00 105 H 38 H 139/82 92 L 05/27/17 01:00 102 H 28 H 114/76 93 L 05/27/17 00:00 97.8 F 100 28 H 106/76 94 L 05/26/17 23:00 103 H 36 H 130/81 92 L 05/26/17 22:00 107 H 28 H 123/77 93 L 05/26/17 21:00 110 H 37 H 144/79 90 L 05/26/17 20:00 98.6 F 103 H 26 H 112/73 92 L 05/26/17 19:40 98 05/26/17 19:22 99 05/26/17 19:00 97 26 H 99/71 96 05/26/17 18:30 98 26 H 102/73 96 05/26/17 18:00 98 26 H 98/70 96 05/26/17 17:30 98 26 H 99/71 97 05/26/17 17:00 101 H 27 H 112/76 97 05/26/17 16:30 101 H 22 117/74 98 05/26/17 16:00 110 H 31 H 130/78 98 05/26/17 15:56 35 H 05/26/17 15:50 110 H 05/26/17 15:37 110 H 05/26/17 15:30 111 H 38 H 135/79 88 L 05/26/17 15:00 108 H 35 H 128/82 83 L 05/26/17 14:30 105 H 35 H 112/75 88 L 05/26/17 14:00 102 H 27 H 110/73 90 L 05/26/17 13:30 102 H 26 H 116/71 90 L 05/26/17 13:00 101 H 26 H 109/71 91 L 05/26/17 12:30 102 H 29 H 104/69 90 L 05/26/17 12:00 102 H 27 H 104/70 91 L 05/26/17 11:30 107 H 31 H 138/93 91 L 05/26/17 11:00 121 H 43 H 125/73 88 L 05/26/17 10:30 123 H 37 H 153/92 93 L Intake and Output 05/26/17 05/27/17 05/27/17 22:59 06:59 14:59 Intake Total 800 925 Output Total 500 630 Balance 300 295 Intake: IV 800 925 Potassium Chloride 10 meq 200 Lidocaine 2% Inj 10 mg In Sodium Chloride 0.9% 100 ml @ 100 mls/hr IV Q1HR [facility] Rx#:[id number] Sodium Chloride 0.9% 1, 225 675 000 ml @ 75 mls/hr IV . [id number] [facility] Rx#:[id number] Vancomycin 1,500 mg In 250 Sodium Chloride 0.9% 250 ml @ 125 mls/hr IVPB Q12H [facility] Rx#:[id number] Vancomycin 2,000 mg In 375 Sodium Chloride 0.9% 500 ml @ 167 mls/hr IVPB ONCE ONE Rx#:[id number] Output: Urine 500 630 Other: Voiding Method Indwelling Catheter Indwelling Catheter Weight 94 kg Head exam was generally normal. There was no scleral icterus or corneal arcus. Mucous membranes were moist. Neck was supple and without jugular venous distension, thyromegaly, or carotid bruits. Carotids were easily palpable bilaterally. There was no adenopathy. Lung sounds are diminished in lung bases bilaterally otherwise clear.Cardiac exam revealed the PMI to be normally situated and sized. The rhythm was regular and no extrasystoles were noted during several minutes of auscultation. The first and second heart sounds were normal and physiologic splitting of the second heart sound was noted. There were no murmurs, rubs, clicks, or gallops. Abdomen is soft nontender and there is no organomegaly. Colostomy site is functional and intact and dry and clean. No direct tenderness. No rebound tenderness. No guarding. Extremities are slightly swollen there is no cyanosis or clubbing. There is diffuse muscle atrophy. No evidence of any cellulitis or any open wounds or sores. In the coccyx, the patient has healed previous ulcers. There is an area 2 cm stage II to 3 ulcer on the right which is nondraining in the bases clean at this point. Results - Laboratory Findings CBC and BMP: 05/27/17 04:19 05/27/17 04:19 ABG ABG pH 7.42 (7.35-7.45) 05/27/17 10:09 ABG pCO2 40 mmHg (35-45) 05/27/17 10:09 ABG pO2 90 mmHg (83-108) 05/27/17 10:09 ABG O2 Saturation 97.0 % (94-97) 05/27/17 10:09 PT/INR, D-dimer PT 15.4 sec (9.0-12.0) H 05/25/17 15:00 INR 1.6 (<1.2) H 05/25/17 15:00 D-Dimer 1.32 mg/L FEU (<0.60) H 05/25/17 15:00 Abnormal lab findings: Abnormal Labs 05/25/17 05/25/17 05/25/17 15:00 15:00 15:00 WBC 29.7 H* Neutrophils # Neutrophils # (Manual) 28.7 H Lymphocytes # Lymphocytes # (Manual) 0.6 L PT INR D-Dimer ABG pO2 ABG Total CO2 ABG O2 Saturation ABG Hematocrit Sodium 123 L Potassium Chloride 85 L Carbon Dioxide 19 L BUN Creatinine 1.35 H Glucose 264 H POC Glucose (mg/dL) Plasma Lactic Acid Rob Calcium Magnesium Total Bilirubin 2.2 H AST 117 H Total Creatine Kinase 29 L Total Protein 6.2 L Albumin 3.2 L Urine Protein Urine Blood Ur Leukocyte Esterase Urine RBC Urine WBC Urine WBC Clumps Amorphous Sediment Urine Bacteria Urine Mucus 05/25/17 05/25/17 05/25/17 15:00 15:00 15:09 WBC Neutrophils # Neutrophils # (Manual) Lymphocytes # Lymphocytes # (Manual) PT 15.4 H INR 1.6 H D-Dimer 1.32 H ABG pO2 ABG Total CO2 ABG O2 Saturation ABG Hematocrit Sodium Potassium Chloride Carbon Dioxide BUN Creatinine Glucose POC Glucose (mg/dL) 297 H Plasma Lactic Acid Rob Calcium Magnesium Total Bilirubin AST Total Creatine Kinase Total Protein Albumin Urine Protein Urine Blood Ur Leukocyte Esterase Urine RBC Urine WBC Urine WBC Clumps Amorphous Sediment Urine Bacteria Urine Mucus 05/25/17 05/25/17 05/25/17 16:00 16:55 22:44 WBC Neutrophils # Neutrophils # (Manual) Lymphocytes # Lymphocytes # (Manual) PT INR D-Dimer ABG pO2 65 L 63 L ABG Total CO2 27 H ABG O2 Saturation 91.0 L ABG Hematocrit 48 H Sodium Potassium Chloride Carbon Dioxide BUN Creatinine Glucose POC Glucose (mg/dL) 314 H Plasma Lactic Acid Rob Calcium Magnesium Total Bilirubin AST Total Creatine Kinase Total Protein Albumin Urine Protein Urine Blood Ur Leukocyte Esterase Urine RBC Urine WBC Urine WBC Clumps Amorphous Sediment Urine Bacteria Urine Mucus 05/26/17 05/26/1705/26/17 05:00 05:35 05:35 WBC 21.8 H Neutrophils # Neutrophils # (Manual) 20.4 H Lymphocytes # Lymphocytes # (Manual) PT INR D-Dimer ABG pO2 ABG Total CO2 ABG O2 Saturation ABG Hematocrit Sodium 130 L Potassium 3.4 L Chloride 91 L Carbon Dioxide BUN 30 H Creatinine Glucose POC Glucose (mg/dL) Plasma Lactic Acid Rob Calcium Magnesium Total Bilirubin AST Total Creatine Kinase Total Protein Albumin Urine Protein 1+ H Urine Blood Moderate H Ur Leukocyte Esterase Trace H Urine RBC 10 H Urine WBC 15 H Urine WBC Clumps Rare H Amorphous Sediment Rare H Urine Bacteria Rare H Urine Mucus Rare H 05/26/17 05/26/17 05/26/17 05:35 08:20 09:47 WBC Neutrophils # Neutrophils # (Manual) Lymphocytes # Lymphocytes # (Manual) PT INR D-Dimer ABG pO2 ABG Total CO2 ABG O2 Saturation ABG Hematocrit Sodium Potassium Chloride Carbon Dioxide BUN Creatinine Glucose POC Glucose (mg/dL) 111 H Plasma Lactic Acid Rob 2.3 H* 2.7 H* Calcium Magnesium Total Bilirubin AST Total Creatine Kinase Total Protein Albumin Urine Protein Urine Blood Ur Leukocyte Esterase Urine RBC Urine WBC Urine WBC Clumps Amorphous Sediment Urine Bacteria Urine Mucus 05/26/17 05/26/17 05/26/17 12:11 13:53 17:26 WBC Neutrophils # Neutrophils # (Manual) Lymphocytes # Lymphocytes # (Manual) PT INR D-Dimer ABG pO2 ABG Total CO2 ABG O2 Saturation ABG Hematocrit Sodium Potassium 3.4 L Chloride Carbon Dioxide BUN Creatinine Glucose POC Glucose (mg/dL) 107 H 110 H Plasma Lactic Acid Rob Calcium Magnesium Total Bilirubin AST Total Creatine Kinase Total Protein Albumin Urine Protein Urine Blood Ur Leukocyte Esterase Urine RBC Urine WBC Urine WBC Clumps Amorphous Sediment Urine Bacteria Urine Mucus 05/26/17 05/27/17 05/27/17 21:11 04:19 04:19 WBC 28.6 H* Neutrophils # 26.7 H Neutrophils # (Manual) Lymphocytes # 0.7 L Lymphocytes # (Manual) PT INR D-Dimer ABG pO2 ABG Total CO2 ABG O2 Saturation ABG Hematocrit Sodium Potassium Chloride Carbon Dioxide BUN 34 H Creatinine 0.60 L Glucose 131 H POC Glucose (mg/dL) 112 H Plasma Lactic Acid Rob Calcium 8.1 L Magnesium 2.6 H Total Bilirubin AST Total Creatine Kinase Total Protein Albumin Urine Protein Urine Blood Ur Leukocyte Esterase Urine RBC Urine WBC Urine WBC Clumps Amorphous Sediment Urine Bacteria Urine Mucus 05/27/17 05/27/17 08:05 10:09 WBC Neutrophils # Neutrophils # (Manual) Lymphocytes # Lymphocytes # (Manual) PT INR D-Dimer ABG pO2 ABG Total CO2 26 H ABG O2 Saturation ABG Hematocrit Sodium Potassium Chloride Carbon Dioxide BUN Creatinine Glucose POC Glucose (mg/dL) 132 H Plasma Lactic Acid Rob Calcium Magnesium Total Bilirubin AST Total Creatine Kinase Total Protein Albumin Urine Protein Urine Blood Ur Leukocyte Esterase Urine RBC Urine WBC Urine WBC Clumps Amorphous Sediment Urine Bacteria Urine Mucus - Diagnostic Findings Chest x-ray: image reviewed Assessment and Plan Plan: Assessment 1 acute hypoxic respiratory failure with development of diffuse breath and pulmonary infiltrates. Cardiogenic pulmonary edema is felt to be less likely. Rule out ARDS/noncardiogenic pulmonary edema. Rule out postpneumonic ARDS nontender the patient is an extensive consolidation of the right upper lobe at a time of admission. 2 acute STEMI status post emergent cardiac catheterization and stenting of the LAD 3 pericardial effusion/possibly infected pericardial fluid with cultures growing alpha, thick strep with elevated white cell count both in the serum and in the pericardial fluid. Status post pericardial window and insertion of a pericardial tube 4 alcoholism 5 delirium tremens currently inactive in CIWA protocol 6 hyponatremia, recovered 7 mild coagulopathy at presentation Plan The patient will need intubation and the patient needs to be placed on a mechanical ventilator to secure airway and oxygenation. This intubation will be done emergently here in the ICU. The family will be informed if there is any contact number that we can reach. Meanwhile her secure the patient's airway. We'll sedated with Diprivan post intubation. He will likely need a bronchoscopy and bronchial lavage with a possibility of a diffuse bilateral pneumonia/ARDS. Continue Rocephin and vancomycin for now. Continue IV fluids. Monitor hemodynamics. Monitor the output from the chest tube. Proceed with a computed tomography scan of the chest post intubation. Blood cultures. Blood gases. Condition is critical. We'll continue to follow. This evaluation was done and more than 30 minutes.
[2017-05-27] MEDS ORDERED: NOREPINEPHRIN 4 MG-0.9% NS PMX 4 MG/250 ML ML IV ONE (10:43)
--- NOTE | 2017-05-27 10:44 | XR ---
EXAMINATION TYPE: XR chest 1V portable DATE OF EXAM: 05/27/2017 CLINICAL HISTORY: Difficulty breathing at the be intubated. TECHNIQUE: Single AP portable semiupright view of the chest is obtained. COMPARISON: Chest x-ray from earlier today FINDINGS: There is new orogastric tube with tip at inferior aortic knob level, approximately 2 to 3 cm above the vitaly. There is new left subclavian central venous catheter with tip in SVC. There is s uspected new orogastric tube projecting below left hemidiaphragm. There is stable adjacent nasogastri c tube. Curvilinear density overlying left inferior heart border is of uncertain etiology, catheter f ragment or foreign body is not excluded as this was not seen on admission study, correlate for interv al procedure since May 25. There is persistent cardiomegaly. Diffuse bilateral alveolar and interstitial opacities are redemonst rated with relative sparing of right greater than left lung apices. There is small right pleural effu junior seen better on current study. No sizable pneumothorax is evident bilaterally. Osseous structures are intact. IMPRESSION: 1. New ET and OGT are felt satisfactory in position. 2. New left subclavian central venous catheter with tip in SVC, no sizable pneumothorax after cathete r placement. 3. Possible catheter fragment foreign body overlying inferior heart just left of midline, need to fur ther investigate by CT should be based on clinical correlation. 4. Redemonstration of cardiomegaly with diffuse bilateral mixed edema and/or infiltrates and better v isualization of small right pleural effusion. Consider ARDS.
[2017-05-27] MEDS ORDERED: NOREPINEPHRIN 4 MG-0.9% NS PMX 4 MG/250 ML ML IV SCH (10:45)
--- NOTE | 2017-05-27 11:03 | P.PCN ---
Date of Procedure: 05/27/17 Preoperative Diagnosis: Pneumonia/ARDS Postoperative Diagnosis: Pneumonia/ARDS Procedure(s) Performed: Flexible bronchoscopy, bronchioloalveolar lavage Implants: Anesthesia: FAITHA Surgeon: Marlin Angel Felt Tipping Machine Tender #1: Bev Gonzales Estimated Blood Loss (ml): 0 Pathology: other Condition: critical Disposition: ICU Indications for Procedure: Respiratory failure, diffuse bilateral pulmonary infiltrates/pneumonia Operative Findings: Description of Procedure: This procedure was done In the intensive care unit. The patient was already intubated and placed on a mechanical ventilator. The patient was sedated with Diprivan. An adaptor was attached to the orotracheal tube and following that the flexible bronchoscope was inserted into the airway through the orotracheal tube. Some thick purulent respiratory secretions were encountered within the ET tube. All of the secretions were suctioned out. The tip of the ET tube was seen around 2 cm above the vitaly. Following that, the vitaly was identified and airway special was done. This procedure was done as the patient was placed on 100% FiO2 and the patient was being mechanically ventilated. Airway inspection showed that the distal trachea was within normal limits. The vitaly was sharp in the midline and bilateral mainstem bronchi were identified. Following that the bronchoscope was moved to the right and there was purulent respiratory secretions within the right upper lobe, bronchus intermedius and the right middle lobe. All of the secretions were suctioned out. Airway inspection was completed as visualized airways included the right upper lobe bronchus, bronchus intermedius, right middle lobe bronchus, right lower lobe bronchus, examination of the study include left mainstem bronchus left upper lobe and left lower lobe bronchisegments and subsegments. All of this airways were patent and within normal limits. No foreign bodies per no other bronchial lesions or tumors. Following that the bronchoscope was moved to the right upper lobe and bronchioloalveolar lavage of the anterior segment of the right upper lobe was done and a total of 80 MO's of fluid was infused and 25-30 mls was suctioned back. The aspirate was nonbloody. At the end of the procedure therapeutic suctioning was done. Airways were free of any secretions and the patient tolerated the procedure well without any major complication and pulse ox remained above 90% throughout the procedure. The flexible scope was removed and the samples were sent for analysis.
--- NOTE | 2017-05-27 11:40 | ECHOF ---
Referral Reason:Acute Pericarditis MEASUREMENTS -------- HEIGHT: 152.4 cm WEIGHT: 93.9 kg BP: 140/60 FINDINGS -------- Sinus rhythm. This was a technically good study. Follow up of pericardial effusion Overall left ventricular systolic function is normal with, an EF between 55 - 60 %. There is a small, generalized pericardial effusion present. CONCLUSIONS -------- 1. Sinus rhythm. 2. This was a technically good study. 3. Follow up of pericardial effusion 4. Overall left ventricular systolic function is normal with, an EF between 55 - 60 %. 5. There is a small, generalized pericardial effusion present. MARKETING TECHNOLOGY SPECIALIST: Tracy Heath RDCS
--- NOTE | 2017-05-27 11:53 | PCN ---
PREOPERATIVE DIAGNOSIS: Acute respiratory failure, diffuse bilateral pulmonary infiltrates, ARDS. POSTOPERATIVE DIAGNOSIS: Acute respiratory failure, diffuse bilateral pulmonary infiltrates, ARDS. PROCEDURE: Intubation. ENDOTRACHEAL INTUBATION Indication: Respiratory compromise. A time-out was completed verifying correct patient, procedure, site, positioning , and implant(s) or special equipment if applicable. I used a #4 peres blade to visualize the focal cords and the patient was intubated by a #8 endotracheal tube was placed under direct laryngoscopy. The tube was anchored at 22 cm at the teeth. Correct placement was confirmed by presence of bilateral breath sounds without air sounds in the abdomen on auscultation. An end-tidal CO2 monitor was also used to confirm tracheal placement of the ET tube. A chest x-ray was ordered to assess for pneumothorax and verify endotracheal tube placement. The patient tolerated the procedure well and there were no complications. TRIPLE LUMEN CATHETER PLACEMENT Indication: Hemodynamic monitoring/Intravenous access. A time-out was completed verifying correct patient, procedure, site, positioning , and implant(s) or special equipment if applicable. The patient was placed in a dependent position appropriate for triple lumen catheter placement based on the vein to be cannulated. The patients right shoulder was prepped and draped in sterile fashion. 1% Lidocaine was used to anesthetize the surrounding skin area. A triple lumen 9F Cordis catheter was introduced into the subclavian or internal jugular or common femoral vein using Seldinger technique. The catheter was threaded smoothly over the guide wire and appropriate blood return was obtained. Each lumen of the catheter was evacuated of air and flushed with sterile saline. The catheter was then sutured in place to the skin and a sterile dressing applied. Perfusion to the extremity distal to the point of catheter insertion was checked and found to be adequate. No complications. ARTERIAL LINE PLACEMENT Indication: Hemodynamic monitoring. A time-out was completed verifying correct patient, procedure, site, positioning , and implant(s) or special equipment if applicable. Allens test was performed to ensure adequate perfusion. The patients left wrist was prepped and draped in sterile fashion. 1% Lidocaine was used to anesthetize the area. An 18G Arrow arterial line was introduced into the radial/ femoral artery. The catheter was threaded over the guide wire and the needle was removed with appropriate pulsatile blood return. Blood loss was minimal. The catheter was then sutured in place to the skin and a sterile dressing applied. Perfusion to the extremity distal to the point of catheter insertion was checked and found to be adequate. The patient tolerated the procedure well and there were no complications. No bedside complications or bleeding. This was done without any complications. MILA
[2017-05-27] MEDS: ENOXAPARIN 40 MG/0.4 ML SYRINGE SQ SCH (12:38)
[2017-05-27] MEDS: PROPOFOL 500 MG in EMPTY BAG 1 BAG IV SCH ×6 (12:42→23:51)
[2017-05-27 12:52] LABS: Glucose,Whole Blood 143 mg/dL (75-99)
--- NOTE | 2017-05-27 14:59 | P.CONS ---
History of Present Illness - Reason for Consult Consult date: 05/27/17 Infected pericardial fluid - History of Present Illness This is a 52-year-old male who presented to [facility] emergency center on May 25 due to chest pain that had been going on for 5 days and worsening. Patient was found to have ST elevation and was taken to the analytical lab analyst with Dr. GRICELDA Gonzales and found to have a 60-70% lesion in the LAD and was subsequently stented. Patient also was found to have a large pericardial effusion and was started on Zosyn and Levaquin and admitted to the intensive care unit. He underwent a bedside echo guided pericardiocentesis and insertion of a pericardial drain done on May 25 with removal of 380 ML's of cloudy tannish fluid. Yesterday he had 225 mL removed in today 125 mL. Chest x -ray showed cardiomegaly, right upper lobe consolidation and bibasilar at infiltrate or atelectasis. He is also followed by Dr. Angel from pulmonary medicine and patient was on BiPAP this morning pulseox was 80% with agitation and confusion and ended up being intubated today. He has presented with a temperature of 101.1, white count of 29.7, sodium 123, blood sugar 314, lactic acid 2.7. Urinalysis was cloudy, protein 1+, blood moderate, leukocyte esterase trace, wbc's 15, clumps rare bacteria rare. Urine culture is in progress and blood cultures status received. Pericardial fluid alphahemolytic strep. Patient has history of drinking 18 beers per day and is on the CIWA protocol. Bronchoscopy was done today for pneumonia and ARDS Review of Systems ROS unobtainable: due to endotracheal tube Past Medical History Past Medical History: No Reported History History of Any Multi-Drug Resistant Organisms: None Reported Past Surgical History: Back Surgery Past Psychological History: No Psychological Hx Reported Smoking Status: Current every day smoker Past Alcohol Use History: Daily, Heavy Past Drug Use History: None Reported Medications and Allergies Home Medications Medication Instructions Recorded Confirmed Type No Known Home Medications [No 05/25/17 05/25/17 History Known Home Medications] Allergies Allergy/AdvReac Type Severity Reaction Status Date / Time No Known Allergies Allergy Verified 05/25/17 15:04 Physical Exam Vitals: Vital Signs Temp Pulse Resp BP Pulse Ox 05/27/17 13:00 105 H 24 102/66 99 05/27/17 12:30 104 H 23 103/67 100 05/27/17 12:00 100 F H 101 H 24 97/66 100 05/27/17 11:30 97 24 82/61 100 05/27/17 11:25 99 05/27/17 11:13 95 05/27/17 11:00 92 25 H 98 05/27/17 10:30 96 24 99 05/27/17 10:00 94 28 H 102/59 94 L 05/27/17 09:30 101 H 37 H 127/76 92 L 05/27/17 09:00 104 H 28 H 134/72 94 L 05/27/17 08:30 108 H 30 H 136/79 93 L 05/27/17 08:00 99.8 F H 112 H 37 H 138/76 92 L 05/27/17 07:32 107 H 05/27/17 07:30 111 H 26 H 131/80 90 L 05/27/17 07:10 110 H 05/27/17 07:00 109 H 30 H 136/86 91 L 05/27/17 06:00 112 H 34 H 157/94 91 L 05/27/17 05:00 112 H 36 H 140/81 91 L 05/27/17 04:00 107 H 30 H 127/78 91 L 05/27/17 03:44 29 H 05/27/17 03:00 105 H 29 H 124/83 91 L 05/27/17 02:00 105 H 38 H 139/82 92 L 05/27/17 01:00 102 H 28 H 114/76 93 L 05/27/17 00:00 97.8 F 100 28 H 106/76 94 L 05/26/17 23:00 103 H 36 H 130/81 92 L 05/26/17 22:00 107 H 28 H 123/77 93 L 05/26/17 21:00 110 H 37 H 144/79 90 L 05/26/17 20:00 98.6 F 103 H 26 H 112/73 92 L 05/26/17 19:40 98 05/26/17 19:22 99 05/26/17 19:00 97 26 H 99/71 96 05/26/17 18:30 98 26 H 102/73 96 05/26/17 18:00 98 26 H 98/70 96 05/26/17 17:30 98 26 H 99/71 97 05/26/17 17:00 101 H 27 H 112/76 97 05/26/17 16:30 101 H 22 117/74 98 05/26/17 16:00 110 H 31 H 130/78 98 05/26/17 15:56 35 H 05/26/17 15:50 110 H 05/26/17 15:37 110 H 05/26/17 15:30 111 H 38 H 135/79 88 L 05/26/17 15:00 108 H 35 H 128/82 83 L 05/26/17 14:30 105 H 35 H 112/75 88 L 05/26/17 14:00 102 H 27 H 110/73 90 L Intake and Output 05/26/17 05/27/17 05/27/17 22:59 06:59 14:59 Intake Total 270 983 8658.073 Output Total 500 630 320 Balance 300 295 759.073 Intake: IV 800 925 950 Potassium Chloride 10 meq 200 Lidocaine 2% Inj 10 mg In Sodium Chloride 0.9% 100 ml @ 100 mls/hr IV Q1HR [facility] Rx#:[id number] Sodium Chloride 0.9% 1, 300 000 ml @ 150 mls/hr IV . Q6H40M [facility] Rx#:[id number] Sodium Chloride 0.9% 1, 225 675 300 000 ml @ 75 mls/hr IV . [id number] [facility] Rx#:[id number] Vancomycin 1,500 mg In 250 250 Sodium Chloride 0.9% 250 ml @ 125 mls/hr IVPB Q12H [facility] Rx#:[id number] Vancomycin 2,000 mg In 375 Sodium Chloride 0.9% 500 ml @ 167 mls/hr IVPB ONCE ONE Rx#:[id number] cefTRIAXone 2,000 mg In 100 Sodium Chloride 0.9% 100 ml @ 100 mls/hr IVPB Q24HR [facility] Rx#:[id number] Intake, IV Titration 129.073 Amount Norepinephrin 4 mg-0.9% 38.563 Ns Pmx 4 mg In 250 ml @ Titrate IV .Q0M [facility] Rx#: [id number] Propofol 500 mg In Empty 15.51 Bag 1 bag @ Titrate IV . Q0M [facility] Rx#:[id number] Sodium Chloride 0.9% 1, 75 000 ml @ 75 mls/hr IV . [id number] [facility] Rx#:[id number] Output: Drainage 125 Anterior Medial Chest 125 Urine 500 630 195 Other: Voiding Method Indwelling Catheter Indwelling Catheter Indwelling Catheter Weight 94 kg ABP, PAP, CO, CI - Last 8 Hours Arterial Blood Pressure 103/59 Arterial Blood Pressure 104/60 Arterial Blood Pressure 108/64 Arterial Blood Pressure 95/59 Arterial Blood Pressure 73/36 Arterial Blood Pressure 102/56 Arterial Blood Pressure 112/42 Gen: This is a 52-year-old male. He is currently intubated and appears to be comfortable on sedation. HEENT: Head is atraumatic, normocephalic. Sclerae is anicteric. Dentition is in poor order NECK: Supple. No JVD. No lymphadenopathy. No thyromegaly. LUNGS: Diminished bilaterally with scattered crackles. No intercostal retractions. HEART: Regular rate and rhythm. No murmur. Her cardial chest tube in place. ABDOMEN: Soft. Bowel sounds are present. No masses. No tenderness. EXTREMITIES: No pedal edema. No calf tenderness. NEUROLOGICAL: Patient is intubated and on sedation Results Results: Laboratory Results WBC 28.6 k/uL (3.8-10.6) H* 05/27/17 04:19 RBC 4.88 m/uL (4.30-5.90) 05/27/17 04:19 Hgb 15.5 gm/dL (13.0-17.5) 05/27/17 04:19 Hct 47.4 % (39.0-53.0) 05/27/17 04:19 MCV 97.1 fL (80.0-100.0) 05/27/17 04:19 MCH 31.9 pg (25.0-35.0) 05/27/17 04:19 MCHC 32.8 g/dL (31.0-37.0) 05/27/17 04:19 RDW 13.3 % (11.5-15.5) 05/27/17 04:19 Plt Count 289 k/uL (150-450) 05/27/17 04:19 Neutrophils % 93 % 05/27/17 04:19 Neutrophils % (Manual) 54.5 % 05/26/17 05:35 Band Neutrophils % 39.0 % 05/26/17 05:35 Lymphocytes % 3 % 05/27/17 04:19 Lymphocytes % (Manual) 4.5 % 05/26/17 05:35 Monocytes % 3 % 05/27/17 04:19 Monocytes % (Manual) 1.5 % 05/26/17 05:35 Eosinophils % 0 % 05/27/17 04:19 Basophils % 0 % 05/27/17 04:19 Metamyelocytes % 0.5 % 05/26/17 05:35 Neutrophils # 26.7 k/uL (1.3-7.7) H 05/27/17 04:19 Neutrophils # (Manual) 20.4 k/uL (1.3-7.7) H 05/26/17 05:35 Lymphocytes # 0.7 k/uL (1.0-4.8) L 05/27/17 04:19 Lymphocytes # (Manual) 1.0 k/uL (1.0-4.8) 05/26/17 05:35 Monocytes # 0.8 k/uL (0-1.0) 05/27/17 04:19 Monocytes # (Manual) 0.3 k/uL (0-1.0) 05/26/17 05:35 Eosinophils # 0.1 k/uL (0-0.7) 05/27/17 04:19 Basophils # 0.1 k/uL (0-0.2) 05/27/17 04:19 Nucleated RBCs 0 /100 WBC (0-0) 05/26/17 05:35 Manual Slide Review Performed 05/25/17 15:00 Toxic Granulation Present 05/26/17 05:35 RBC Morphology Normal 05/25/17 15:00 Polychromasia Present 05/26/17 05:35 Poikilocytosis (manual Present 05/26/17 05:35 Anisocytosis (manual) Present 05/26/17 05:35 PT 15.4 sec (9.0-12.0) H 05/25/17 15:00 INR 1.6 (<1.2) H 05/25/17 15:00 APTT 25.9 sec (22.0-30.0) 05/25/17 15:00 D-Dimer 1.32 mg/L FEU (<0.60) H 05/25/17 15:00 Sample Site JOSE FRANCISCO 05/27/17 10:09 ABG pH 7.42 (7.35-7.45) 05/27/17 10:09 ABG pCO2 40 mmHg (35-45) 05/27/17 10:09 ABG pO2 90 mmHg (83-108) 05/27/17 10:09 ABG HCO3 25 mmol/L (21-25) 05/27/17 10:09 ABG Total CO2 26 mmol/L (19-24) H 05/27/17 10:09 ABG O2 Saturation 97.0 % (94-97) 05/27/17 10:09 ABG Base Excess 1.2 mmol/L 05/27/17 10:09 ABG Hematocrit 48 % (34.0-46.0) H 05/25/17 16:00 FiO2 100 % 05/27/17 10:09 Sodium 137 mmol/L (137-145) 05/27/17 04:19 Potassium 4.5 mmol/L (3.5-5.1) 05/27/17 04:19 Chloride 102 mmol/L (98-107) 05/27/17 04:19 Carbon Dioxide 23 mmol/L (22-30) 05/27/17 04:19 Anion Gap 12 mmol/L 05/27/17 04:19 BUN 34 mg/dL (9-20) H 05/27/17 04:19 Creatinine 0.60 mg/dL (0.66-1.25) L 05/27/17 04:19 Est GFR (MDRD) Af Amer >60 (>60 ml/min/1.73 sqM) 05/27/17 04:19 Est GFR (MDRD) Non-Af >60 (>60 ml/min/1.73 sqM) 05/27/17 04:19 Glucose 131 mg/dL (74-99) H 05/27/17 04:19 POC Glucose (mg/dL) 143 mg/dL (75-99) H 05/27/17 12:51 POC Glu [place] ID Kathy Perez Dal 05/27/17 12:[address] Glu mg/dL 105 mg/dL 05/25/17 15:00 Hemoglobin A1c 5.3 % (4.2-6.1) 05/25/17 15:00 Lactic Ac Sepsis Rflx Y 05/26/17 06:08 Plasma Lactic Acid Rob 2.7 mmol/L (0.7-2.0) H* 05/26/17 09:47 Calcium 8.1 mg/dL (8.4-10.2) L 05/27/17 04:19 Phosphorus 3.2 mg/dL (2.5-4.5) 05/27/17 04:19 Magnesium 2.6 mg/dL (1.6-2.3) H 05/27/17 04:19 Total Bilirubin 2.2 mg/dL (0.2-1.3) H 05/25/17 15:00 AST 117 U/L (17-59) H 05/25/17 15:00 ALT 72 U/L (21-72) 05/25/17 15:00 Alkaline Phosphatase 75 U/L (38-126) 05/25/17 15:00 Total Creatine Kinase 29 U/L (55-170) L 05/25/17 15:00 CK-MB (CK-2) 0.6 ng/mL (0.0-2.4) 05/25/17 15:00 CK-MB (CK-2) Rel Index 2.1 05/25/17 15:00 Troponin I 0.030 ng/mL (0.000-0.034) 05/26/17 05:35 Total Protein 6.2 g/dL (6.3-8.2) L 05/25/17 15:00 Albumin 3.2 g/dL (3.5-5.0) L 05/25/17 15:00 Urine Color Yellow 05/26/17 05:00 Urine Appearance Cloudy (Clear) 05/26/17 05:00 Urine pH 5.5 (5.0-8.0) 05/26/17 05:00 Ur Specific [place] 1.030 (1.001-1.035) 05/26/17 05:00 Urine Protein 1+ (Negative) H 05/26/17 05:00 Urine Glucose (UA) Negative (Negative) 05/26/17 05:00 Urine Ketones Negative (Negative) 05/26/17 05:00 Urine Blood Moderate (Negative) H 05/26/17 05:00 Urine Nitrite Negative (Negative) 05/26/17 05:00 Urine Bilirubin Negative (Negative) 05/26/17 05:00 Urine Urobilinogen 2.0 mg/dL (<2.0) 05/26/17 05:00 Ur Leukocyte Esterase Trace (Negative) H 05/26/17 05:00 Urine RBC 10 /hpf (0-5) H 05/26/17 05:00 Urine WBC 15 /hpf (0-5) H 05/26/17 05:00 Urine WBC Clumps Rare /hpf (None) H 05/26/17 05:00 Ur Squamous Epith Cells 1 /hpf (0-4) 05/26/17 05:00 Amorphous Sediment Rare /hpf (None) H 05/26/17 05:00 Urine Bacteria Rare /hpf (None) H 05/26/17 05:00 Urine Mucus Rare /hpf (None) H 05/26/17 05:00 Fluid Source Pericardial 05/25/17 18:20 Fluid Color Yellow 05/25/17 18:20 Fluid Appearance Cloudy 05/25/17 18:20 Fluid RBC 81996 /uL 05/25/17 18:20 Fluid Nucleated Cells 52279 /uL 05/25/17 18:20 Fluid Polynuclear WBCs 92 % 05/25/17 18:20 Fluid Mononuclear WBCs 8 % 05/25/17 18:20 Body Fluid Glucose Source PARICA 05/25/17 18:20 Fluid Glucose <4 mg/dL 05/25/17 18:20 Body Fluid Protein Source [place] 05/25/17 18:20 Fluid Total Protein 6200 mg/dL 05/25/17 18:20 Body Fluid LDH Source PARICA 05/25/17 18:20 Fluid LDH 2839 U/L 05/25/17 18:20 Fluid Comment 05/25/17 18:20 Blood Type O Positive 05/25/17 15:00 Blood Type Recheck No 05/25/17 15:00 Antibody Screen NEGATIVE 05/25/17 15:00 Transfuse Plasma 05/25/2017 05/25/17 15:00 Spec Expiration Date 05/28/2017 - 229905/25/17 15:00 CBC & Chem 7: 05/27/17 04:19 05/27/17 04:19 Labs: Abnormal Lab Results - Last 24 Hours (Table) 05/26/17 05/26/17 05/26/17 Range/Units 13:53 17:26 21:11 WBC (3.8-10.6) k/uL Neutrophils # (1.3-7.7) k/uL Lymphocytes # (1.0-4.8) k/uL ABG Total CO2 (19-24) mmol/L Potassium 3.4 L (3.5-5.1) mmol/L BUN (9-20) mg/dL Creatinine (0.66-1.25) mg/dL Glucose (74-99) mg/dL POC Glucose (mg/dL) 110 H 112 H (75-99) mg/dL Calcium (8.4-10.2) mg/dL Magnesium (1.6-2.3) mg/dL 05/27/17 05/27/17 05/27/17 Range/Units 04:19 04:19 08:05 WBC 28.6 H* (3.8-10.6) k/uL Neutrophils # 26.7 H (1.3-7.7) k/uL Lymphocytes # 0.7 L (1.0-4.8) k/uL ABG Total CO2 (19-24) mmol/L Potassium (3.5-5.1) mmol/L BUN 34 H (9-20) mg/dL Creatinine 0.60 L (0.66-1.25) mg/dL Glucose 131 H (74-99) mg/dL POC Glucose (mg/dL) 132 H (75-99) mg/dL Calcium 8.1 L (8.4-10.2) mg/dL Magnesium 2.6 H (1.6-2.3) mg/dL 05/27/17 05/27/17 Range/Units 10:09 12:51 WBC (3.8-10.6) k/uL Neutrophils # (1.3-7.7) k/uL Lymphocytes # (1.0-4.8) k/uL ABG Total CO2 26 H (19-24) mmol/L Potassium (3.5-5.1) mmol/L BUN (9-20) mg/dL Creatinine (0.66-1.25) mg/dL Glucose (74-99) mg/dL POC Glucose (mg/dL) 143 H (75-99) mg/dL Calcium (8.4-10.2) mg/dL Magnesium (1.6-2.3) mg/dL Microbiology - Last 24 Hours (Table) 05/26/17 09:47 Blood Culture - Preliminary Blood No Growth after 24 hours 05/26/17 09:47 Blood Culture - Preliminary Blood No Growth after 24 hours 05/25/17 18:20 Acid Fast Bacilli Smear - Final Pericardial Fluid Acid Fast Bacilli Culture - Preliminary 05/25/17 18:20 Gram Stain - Preliminary Pericardial Fluid Body Fluid Culture - Preliminary Alpha Hemolytic Streptococcus 05/26/17 05:00 Urine Culture - Preliminary Urine,Catheterized Assessment and Plan Plan: This is a 52-year-old male who presented to the hospital with chest pain found to be having an ST elevated myocardial infarction status post heart catheterization and stent placement in the LAD. Patient also presented with sepsis, septic shock with possible right upper lobe pneumonia and infected pericardial effusion with impending acute hypoxic respiratory failure requiring intubation and mechanical ventilation. Antibiotics are currently Rocephin and vancomycin which will be continued. Continue supportive care. Further recommendations as patient progresses. The above dictated assessment and findings were discussed with Dr. Carlton. The impression and plan of care have been directed as dictated. Emily Herman nurse practitioner acting as scribe for Dr. Carlton.
[2017-05-27] MEDS ORDERED: NOREPINEPHRIN 16 MG-0.9%NS PMX 16 MG/250 ML ML IV SCH (15:15)
--- NOTE | 2017-05-27 16:01 | P.PN ---
Subjective Principal diagnosis: Chest pain Mr. Araujo is a 52-year-old male with a past medical history of chronic low back pain, hypertension, alcohol abuse and nicotine dependence coming into the hospital with a chief complaint of chest pain. Patient has history of chronic low back pain and pain of his neck that has been going on but for the past 5 days his symptoms have worsened. Patient's chest pain got worse and he was complaining of 10 out of 10 and so called the EMS. The paramedics did perform an EKG which was suspicious for ST elevation LA. He was given aspirin and nitroglycerin and transferred to [facility] for further evaluation. So the occupational therapy professor supervisor [employer] Dr. GRICELDA Gonzales was informed, who did an emergent cardiac catheterization. The patient had a stent placed in his LAD and was also noted to have a large pericardial effusion. So CT surgeon Dr. Multani came in and did a pericardiocentesis. There was 380 mL of fluid drained out. And the patient has been transferred to the ICU for further management and care. On 05/26/17- on the night of 05/26 the patient became very combative and was trying to put all his lines and the pericardial catheter. The patient was placed on a CIWA scale and given 10 mg of Ativan without much improvement in his symptoms. So eventually he was given Haldol after which the patient did calm down. Around 230 ml of fluid was drained from the pericardium. On 05/27/17 - patient was pretty confused, agitated and was on restraints , he was placed on BiPAP and as he was desaturating. Dr. Angel had to intubate the patient around 10 AM today due to impending respiratory failure due to ARDS. Patient also had a bronchoscopy done by Dr. Angel this morning. Patient's pericardial fluid came back to be positive for Streptococcus and he has been started on ceftriaxone. Patient is currently intubated and in the ICU. He is sedated with propofol. He is on 10 mics of Levophed. REVIEW OF SYSTEMS Could not be done as the patient is intubated Objective - Vital Signs Vital signs: Vital Signs Temp 100 F H 05/27/17 12:00 Pulse 100 05/27/17 15:27 Resp 24 05/27/17 15:00 BP 107/71 05/27/17 15:00 Pulse Ox 99 05/27/17 15:00 Intake & Output 05/26/17 05/27/17 05/27/17 18:59 06:59 18:59 Intake Total 2563 1225 1506.990 Output Total 960 905 410 Balance 4083 865 7482.990 Weight 94 kg Intake: IV 1950 1225 1250 Piperacillin-Tazobactam 3 50 .375 gm In Dextrose/Water 1 50ml.bag @ 12.5 mls/hr IVPB Q8HR [facility] Rx#: [id number] Potassium Chloride 10 meq 400 Lidocaine 2% Inj 10 mg In Sodium Chloride 0.9% 100 ml @ 100 mls/hr IV Q1HR [facility] Rx#:[id number] Sodium Chloride 0.9% 1, 600 000 ml @ 150 mls/hr IV . Q6H40M [facility] Rx#:[id number] Sodium Chloride 0.9% 1, 525 900 300 000 ml @ 75 mls/hr IV . [id number] [facility] Rx#:[id number] Vancomycin 1,500 mg In 250 250 Sodium Chloride 0.9% 250 ml @ 125 mls/hr IVPB Q12H [facility] Rx#:[id number] Vancomycin 2,000 mg In 875 75 Sodium Chloride 0.9% 500 ml @ 167 mls/hr IVPB ONCE ONE Rx#:[id number] cefTRIAXone 2,000 mg In 100 100 Sodium Chloride 0.9% 100 ml @ 100 mls/hr IVPB Q24HR [facility] Rx#:[id number] Intake, IV Titration 256.990 Amount Norepinephrin 4 mg-0.9% 127.376 Ns Pmx 4 mg In 250 ml @ Titrate IV .Q0M [facility] Rx#: [id number] Propofol 500 mg In Empty 54.614 Bag 1 bag @ Titrate IV . Q0M [facility] Rx#:[id number] Sodium Chloride 0.9% 1, 75 000 ml @ 75 mls/hr IV . [id number] [facility] Rx#:[id number] Blood Product 613 Ffp 24 Cpd Unit 278 [id number] Ffp 24 Cpd Unit 335 [id number] Output: Drainage 225 125 Anterior Medial Chest 225 125 Urine 735 905 285 Other: Voiding Method Indwelling Catheter Indwelling Catheter Indwelling Catheter ABP, PAP, CO, CI - Last Documented Arterial Blood Pressure 111/63 - Exam GENERAL EXAM GEN. APPEARANCE: She is intubated HEAD EXAM: Atraumatic EYE EXAM: No pallor no icterus ENT EXAM: ET tube in place NECK EXAM: No carotid bruit. No thyromegaly RESPIRATORY EXAM: Diminished breath sounds bilaterally. Coarse breath sounds in all lung [place] with crackles. CARDIOVASCULAR EXAM: Tachycardia. S1 and S2 heard. Pericardial drainage tube in place GI/ABDOMINAL EXAM: Soft nontender. No guarding or rigidity. EXTREMITIES EXAM: No cyanosis, no swelling, no edema. NEUROLOGICAL EXAM: Sedated and intubated SKIN EXAM: warm to touch. No rash. - Labs CBC & Chem 7: 05/27/17 04:19 05/27/17 04:19 Labs: Abnormal Lab Results - Last 24 Hours (Table) 05/26/17 05/26/17 05/27/17 Range/Units 17:26 21:11 04:19 WBC 28.6 H* (3.8-10.6) k/uL Neutrophils # 26.7 H (1.3-7.7) k/uL Lymphocytes # 0.7 L (1.0-4.8) k/uL ABG Total CO2 (19-24) mmol/L BUN (9-20) mg/dL Creatinine (0.66-1.25) mg/dL Glucose (74-99) mg/dL POC Glucose (mg/dL) 110 H 112 H (75-99) mg/dL Calcium (8.4-10.2) mg/dL Magnesium (1.6-2.3) mg/dL 05/27/17 05/27/17 05/27/17 Range/Units 04:19 08:05 10:09 WBC (3.8-10.6) k/uL Neutrophils # (1.3-7.7) k/uL Lymphocytes # (1.0-4.8) k/uL ABG Total CO2 26 H (19-24) mmol/L BUN 34 H (9-20) mg/dL Creatinine 0.60 L (0.66-1.25) mg/dL Glucose 131 H (74-99) mg/dL POC Glucose (mg/dL) 132 H (75-99) mg/dL Calcium 8.1 L (8.4-10.2) mg/dL Magnesium 2.6 H (1.6-2.3) mg/dL 05/27/17 Range/Units 12:51 WBC (3.8-10.6) k/uL Neutrophils # (1.3-7.7) k/uL Lymphocytes # (1.0-4.8) k/uL ABG Total CO2 (19-24) mmol/L BUN (9-20) mg/dL Creatinine (0.66-1.25) mg/dL Glucose (74-99) mg/dL POC Glucose (mg/dL) 143 H (75-99) mg/dL Calcium (8.4-10.2) mg/dL Magnesium (1.6-2.3) mg/dL Microbiology - Last 24 Hours (Table) 05/26/17 05:00 Urine Culture - Final Urine,Catheterized 05/26/17 09:47 Blood Culture - Preliminary Blood No Growth after 24 hours 05/26/17 09:47 Blood Culture - Preliminary Blood No Growth after 24 hours 05/25/17 18:20 Acid Fast Bacilli Smear - Final Pericardial Fluid Acid Fast Bacilli Culture - Preliminary 05/25/17 18:20 Gram Stain - Preliminary Pericardial Fluid Body Fluid Culture - Preliminary Alpha Hemolytic Streptococcus Assessment and Plan Plan: ASSESSMENT Acute hypoxic respiratory failure secondary to ARDS Pneumonia right upper lobe ST elevation LA status post stenting of LAD Pericardial effusion Alcohol withdrawal delirium tremens Chronic liver disease Chronic alcohol abuse Chronic nicotine dependence PLAN Patient has been intubated in the ICU this morning. He is sedated on propofol. He is on 10 mics of Levophed for a MAP to be above 60. Patient had pericardiocentesis with 380 mL drained initially , 230 mL of fluid darined yesterday and 125 ml this morning. Pericardial fluid growing Streptococcus. He has been started on Rocephin. Continue with GI DVT prophylaxis. Further recommendations to follow depending on the progress of the patient. Overall prognosis guarded.
--- NOTE | 2017-05-27 16:37 | P.PN ---
Subjective Principal diagnosis: Large pericardial effusion with tape and on physiology, acute ST elevation myocardial infarction involving the apical lateral wall of the left ventricle, history of alcohol abuse, history of chronic nicotine dependence, and chronic obstructive pulmonary disease. Status post day #2 of insertion of a bedside echo guided pericardiocentesis and insertion of pericardial drain. POD #2 left heart catheterization, coronary angiogram with placement of a stent placement to his left anterior descending coronary artery by Dr. GRICELDA Gonzales. Is currently laying in bed and is sedated, he opens up his eyes easily with verbal stimuli. He is oriented 3. His oxygen saturations decreased easily into the mid 80s with minimal movement. He is moving all 4 extremities appropriately. Objective - Vital Signs Vital signs: Vital Signs Temp 97.8 F 05/27/17 00:00 Pulse 107 H 05/27/17 07:32 Resp 30 H 05/27/17 07:00 BP 136/86 05/27/17 07:00 Pulse Ox 91 L 05/27/17 07:00 Intake & Output 05/26/17 05/27/17 05/27/17 18:59 06:59 18:59 Intake Total 2563 1225 Output Total 960 905 Balance 1603 320 Weight 94 kg Intake: IV 1950 1225 Piperacillin-Tazobactam 3 50 .375 gm In Dextrose/Water 1 50ml.bag @ 12.5 mls/hr IVPB Q8HR DIANA Rx#: [id number] Potassium Chloride 10 meq 400 Lidocaine 2% Inj 10 mg In Sodium Chloride 0.9% 100 ml @ 100 mls/hr IV Q1HR DIANA Rx#:[id number] Sodium Chloride 0.9% 1, 525 900 000 ml @ 75 mls/hr IV . [id number] DIANA Rx#:[id number] Vancomycin 1,500 mg In 250 Sodium Chloride 0.9% 250 ml @ 125 mls/hr IVPB Q12H DIANA Rx#:[id number] Vancomycin 2,000 mg In 875 75 Sodium Chloride 0.9% 500 ml @ 167 mls/hr IVPB ONCE ONE Rx#:[id number] cefTRIAXone 2,000 mg In 100 Sodium Chloride 0.9% 100 ml @ 100 mls/hr IVPB Q24HR DIANA Rx#:[id number] Blood Product 613 Ffp 24 Cpd Unit 278 [id number] Ffp 24 Cpd Unit 335 [id number] Output: Drainage 225 Anterior Medial Chest 225 Urine 735 905 Other: Voiding Method Indwelling Catheter Indwelling Catheter ABP, PAP, CO, CI - Last Documented Arterial Blood Pressure 184/99 - Constitutional Constitutional Comment(s): He is currently sedated and is on the CWIA protocol for EtOH withdrawal. He has periods of agitation with stimuli. General appearance: Present: disheveled - EENT Eyes: Present: PERRLA ENT: Present: hearing grossly normal - Respiratory Details: Respirations are symmetrical and unlabored with BiPAP support. His current BiPAP settings are 10/5 with a rate of 12, FiO2 100%. His current oxygen saturations are 90% with BiPAP support. His lung sounds are essentially clear to his bilateral upper bases and diminished to his bilateral lower bases. He does desaturate with his oxygen easily with movement. - Cardiovascular Details: Regular rhythm and tachycardic rate, S1-S2, negative for S3, gallop or murmur. Bedside telemetry showing sinus tachycardia heart rate 111. ST elevation in lead 1, 2, and lead 5. His pericardial catheter remains in place and intact, 125 mL of cloudy serous fluid removed off the pericardial catheter this morning. He is positive JVD. He has knee-high TAMIKA hose and sequential compression devices in place to his bilateral lower extremities. - Gastrointestinal Gastrointestinal Comment(s): Umesh is soft, nontender, nondistended. He is now NG tube in place to low intermittent wall suction. 50 mL of bile-colored drainage from his NG tube in the last 24 hours. Positive bowel sounds in all 4 abdominal quadrants. - Genitourinary Genitourinary Comment(s): Adequate, Merino catheter for accurate I&O. Urine is clear yellow, slightly concentrated. - Integumentary Integumentary: Present: jaundiced, normal turgor - Musculoskeletal Musculoskeletal: Present: generalized weakness - Psychiatric Psychiatric Comment(s): Oriented 3. He is sedated and is currently on the alcohol CWIA protocol. - Allied health notes Allied health notes reviewed: nursing - Labs CBC & Chem 7: 05/27/17 04:19 05/27/17 04:19 Labs: Abnormal Lab Results - Last 24 Hours (Table) 05/26/17 05/26/17 05/26/17 Range/Units 08:20 09:47 12:11 WBC (3.8-10.6) k/uL Neutrophils # (1.3-7.7) k/uL Lymphocytes # (1.0-4.8) k/uL Potassium (3.5-5.1) mmol/L BUN (9-20) mg/dL Creatinine (0.66-1.25) mg/dL Glucose (74-99) mg/dL POC Glucose (mg/dL) 111 H 107 H (75-99) mg/dL Plasma Lactic Acid Rob 2.7 H* (0.7-2.0) mmol/L Calcium (8.4-10.2) mg/dL Magnesium (1.6-2.3) mg/dL 05/26/17 05/26/17 05/26/17 Range/Units 13:53 17:26 21:11 WBC (3.8-10.6) k/uL Neutrophils # (1.3-7.7) k/uL Lymphocytes # (1.0-4.8) k/uL Potassium 3.4 L (3.5-5.1) mmol/L BUN (9-20) mg/dL Creatinine (0.66-1.25) mg/dL Glucose (74-99) mg/dL POC Glucose (mg/dL) 110 H 112 H (75-99) mg/dL Plasma Lactic Acid Rob (0.7-2.0) mmol/L Calcium (8.4-10.2) mg/dL Magnesium (1.6-2.3) mg/dL 05/27/17 05/27/17 Range/Units 04:19 04:19 WBC 28.6 H* (3.8-10.6) k/uL Neutrophils # 26.7 H (1.3-7.7) k/uL Lymphocytes # 0.7 L (1.0-4.8) k/uL Potassium (3.5-5.1) mmol/L BUN 34 H (9-20) mg/dL Creatinine 0.60 L (0.66-1.25) mg/dL Glucose 131 H (74-99) mg/dL POC Glucose (mg/dL) (75-99) mg/dL Plasma Lactic Acid Rob (0.7-2.0) mmol/L Calcium 8.1 L (8.4-10.2) mg/dL Magnesium 2.6 H (1.6-2.3) mg/dL Microbiology - Last 24 Hours (Table) 05/25/17 18:20 Acid Fast Bacilli Smear - Final Pericardial Fluid Acid Fast Bacilli Culture - Preliminary 05/25/17 18:20 Gram Stain - Preliminary Pericardial Fluid Body Fluid Culture - Preliminary Alpha Hemolytic Streptococcus 05/26/17 05:00 Urine Culture - Preliminary Urine,Catheterized - Imaging and Cardiology Chest x-ray: report reviewed, image reviewed Assessment and Plan (1) Alcoholism Status: Acute (2) Hyponatremia syndrome Status: Acute (3) Pericardial effusion Status: Acute (4) Right upper lobe pneumonia Status: Acute (5) ST elevation myocardial infarction (STEMI) Status: Acute Plan: 1. 125 mL of cloudy serous drainage was drained from the pericardial catheter. 2. Encourage incentive spirometry every hour while awake. 3. Pulmonary and intensive care management per Dr. Angel recommendations. 4. Cardiology management per Dr. GRICELDA Gonzales's recommendations. 5. GI and DVT prophylaxis in place. We will add heparin subcu 5000 units every 8 hours. 6. Repeat chest x-ray in a.m. 7. A 2-D echo repeated this a.m., cardiology management per Dr. GRICELDA Gonzales's recommendations. 8. Further recommendations as the patient progresses. Time with Patient: Greater than 30
--- NOTE | 2017-05-27 17:26 | CT ---
EXAMINATION TYPE: CT chest w con DATE OF EXAM: 05/27/2017 COMPARISON: NONE HISTORY: Respiratory failure. CT DLP: 896.7 mGycm Automated exposure control for dose reduction was used. CONTRAST: CT scan of the chest is performed with IV Contrast, patient injected with 100 mL of Visipaque 320. FINDINGS: There is diffuse pulmonary alveolar edema. There is loculated pleural fluid in the right lower lobe a nteriorly and posteriorly. The fluid measures up to 6 cm. There is pericardial effusion. Heart is enl arged. Nasogastric tube is noted. Endotracheal tube appears in good position. Nasogastric tube is in good position. There is no sign of pneumothorax. There are a few mediastinal lymph nodes that measure up to 1.5 cm. I see no hilar mass. There is small left pleural effusion. IMPRESSION: Loculated right pleural effusion. Pulmonary edema. Cardiomegaly. This is probably conges tive heart failure. Pericardial effusion. Small left pleural effusion. Mild mediastinal adenopathy. Loculation of the fluid suggests the possibility of empyema.
[2017-05-27 18:04] LABS: Glucose,Whole Blood 154 mg/dL (75-99)
--- NOTE | 2017-05-27 18:43 | PN ---
This is a gentleman seen by me yesterday when he presented with ST elevation AL and also had combination of pericardial deficiency. I performed stenting of the mid LAD. However, his clinical picture is that of a bacterial pericarditis with gram positive cocci growing from the pericardial fluid. He has been tapped and repeat aspiration yesterday revealed an additional 250 mL or so. However, the patient developed ARDS type picture, he is now intubated. Dr. Angel is seeing him from a pulmonary standpoint. I am recommending that we hydrate the patient. LV systolic function is good. We will hydrate him at 150 mL per hour for six to eight hours and 100 mL per hour. Plan is to proceed with antibiotics. Dr. Carlton has also seen the patient in this regard. The patient appears to be hemodynamically unstable. He is on a small dose of Levophed on a ventilator. Prognosis for this patient is quite poor. Blood pressure 96/60 on a small dose of Levophed. S1, S2 heard. Normally. Tachycardia noted. Short systolic murmur noted. Lungs revealed diminished air entry. Abdomen and lower extremity exam unchanged. Prognosis for this patient is quite poor given his multiple comorbid conditions. I discussed this with the patient but I am not sure how much he comprehends and there was no family available. Tomorrow I will talk to his ex- if she is available. She is the closest relative that actually showed up. Prognosis remains poor. MILA
--- NOTE | 2017-05-27 19:28 | P.CON ---
Consult Note - . Consult date: 05/27/17 Assessment/Plan:: This is a 52-year-old male who presented to [facility] emergency center on May 25 due to chest pain that had been going on for 5 days and worsening. Patient was found to have ST elevation and was taken to the [facility] with Dr. GRICELDA Gonzales and found to have a 60-70% lesion in the LAD and was subsequently stented. Patient also was found to have a large pericardial effusion and was started on Zosyn and Levaquin and admitted to the intensive care unit. He underwent a bedside echo guided pericardiocentesis and insertion of a pericardial drain done on May 25 with removal of 380 ML's of cloudy tannish fluid. Yesterday he had 225 mL removed in today 125 mL. Chest x -ray showed cardiomegaly, right upper lobe consolidation and bibasilar at infiltrate or atelectasis. He is also followed by Dr. Angel from pulmonary medicine and patient was on BiPAP this morning pulseox was 80% with agitation and confusion and ended up being intubated today. He has presented with a temperature of 101.1, white count of 29.7, sodium 123, blood sugar 314, lactic acid 2.7. Urinalysis was cloudy, protein 1+, blood moderate, leukocyte esterase trace, wbc's 15, clumps rare bacteria rare. Urine culture is in progress and blood cultures status received. Pericardial fluid alphahemolytic strep. Patient has history of drinking 18 beers per day and is on the CIWA protocol. Bronchoscopy was done today for pneumonia and ARDS. Patient required intubation with ongoing sedation and mechanical ventilation. Please see the consult note is dictated by nurse practitioner Emily Yanesha. 52-year-old gentleman who has a history of alcoholism who has radiological evidence of pneumonia. It is highly likely that the pneumonia resulted in the purulent pericarditis via direct extension. alpha streptococci have been isolated. Antibiotic therapy with Rocephin and vancomycin is being utilized at this time pending further data. Blood cultures negative so far. As noted the patient's alcohol withdrawal is being treated, and his respiratory failure hopefully respond well to antibiotic therapy, treatment of the purulent pericarditis and underlying sepsis. The extensive leukocytosis is directly related to the rhythm pericarditis and pneumonia, and with this current underlying status of alcoholism is a good prognostic sign and he was able to generate a leukocytosis. The fevers are starting to improve. Patient will be monitored in the intensive care unit. I agree with evaluation, assessment and plan as dictated by nurse practitioner Mrs. Emily Herman.
[2017-05-27] MEDS: amLODIPine 5 MG TAB PO SCH (20:20)
[2017-05-27] MEDS: CHLORHEXIDINE GLUCONATE 15 ML CUP MUCOUS MEM SCH (20:20)
[2017-05-27 23:59] LABS: Glucose,Whole Blood 137 mg/dL (75-99)
[2017-05-28] MEDS: PROPOFOL 500 MG in EMPTY BAG 1 BAG IV SCH ×3 (01:30→06:17)
[2017-05-28 05:07] LABS: Basophils # (A) 0.1 k/uL (0-0.2); Basophils % (A) 1 %; CHCM 31.7; Eosinophils # (A) 0.1 k/uL (0-0.7); Eosinophils % (A) 0 %; HCT 42.9 % (39.0-53.0); HDW 2.65; HGB 13.8 gm/dL (13.0-17.5); Luc # (Auto) 0.51; Luc % (Auto) 2; Lymphocytes # (A) 0.7 k/uL (1.0-4.8); Lymphocytes % (A) 3 %; MCH 31.6 pg (25.0-35.0); MCHC 32.2 g/dL (31.0-37.0); MCV 98.3 fL (80.0-100.0); Mean Platelet Volume 7.5; Monocytes # (A) 0.4 k/uL (0-1.0); Monocytes % (A) 2 %; Neutrophils % (A) 92 %; RBC 4.37 m/uL (4.30-5.90); RDW 13.1 % (11.5-15.5); WBC 20.8 k/uL (3.8-10.6); WBC (Perox) 19.96
[2017-05-28 05:11] LABS: Anion Gap 8 mmol/L; Blood Urea Nitrogen 31 mg/dL (9-20); Calcium 7.7 mg/dL (8.4-10.2); Carbon Dioxide 24 mmol/L (22-30); Chloride 108 mmol/L (98-107); Glucose 130 mg/dL (74-99); Magnesium 2.9 mg/dL (1.6-2.3); Non-African American GFR(MDRD) >60 (>60 ml/min/1.73 sqM); Phosphorous 2.9 mg/dL (2.5-4.5); Potassium 3.7 mmol/L (3.5-5.1); Sodium 140 mmol/L (137-145)
[2017-05-28] MEDS ORDERED: Potassium Replacement Protocol 1 EACH MISC MISCELLANE PRN (05:21)
[2017-05-28 05:31] LABS: ABG PCO2 36 mmHg (35-45); ABG PH 7.42 (7.35-7.45); ABG PO2 69 mmHg (83-108)
[2017-05-28 05:32] LABS: ABG Base Excess -0.8 mmol/L; ABG HCO3 23 mmol/L (21-25); ABG TCO2 24 mmol/L (19-24)
[2017-05-28] MEDS ORDERED: POTASSIUM CHLORIDE ORAL LIQUID 40 MEQ/30 ML CUP NG-TUBE SCH (06:00)
[2017-05-28 06:13] LABS: Glucose,Whole Blood 131 mg/dL (75-99)
[2017-05-28] MEDS: INSULIN LISPRO (humaLOG) 300 UNIT/3 ML VIAL SQ SCH ×3 (06:14→18:35)
--- NOTE | 2017-05-28 07:40 | XR ---
EXAMINATION TYPE: XR chest 1V portable DATE OF EXAM: 05/28/2017 HISTORY: Tube placement. REFERENCE: Previous study dated 05/27/2017. FINDINGS: The patient is ET tube and NG tube remain in place the patient is ET tube and NG tube remai n in place, unchanged in appearance. There is a left subclavian catheter in place. Its tip is in the superior vena cava. Radiopaque marker projects over the left ventricle. This is unchanged from previo us and represents a pericardial catheter.. There continues to be bilateral alveolar airspace disease. I suspect small effusions. The heart is en larged. IMPRESSION: 1. CONTINUING BILATERAL AIRSPACE DISEASE. THIS MAY BE ON THE BASIS OF HEART FAILURE. PNEUMONIA IS NOT EXCLUDED. 2. CARDIOMEGALY. 3. SMALL, BILATERAL EFFUSIONS.
[2017-05-28] MEDS: IPRATROPIUM-ALBUTEROL 3 ML NEB INHALATION SCH ×4 (07:52→19:08)
[2017-05-28] MEDS: CHLORHEXIDINE GLUCONATE 15 ML CUP MUCOUS MEM SCH ×2 (08:06→21:43)
[2017-05-28] MEDS: ASPIRIN 81 MG CHEW PO SCH (08:06)
[2017-05-28] MEDS: CLOPIDOGREL 75 MG TAB PO SCH (08:06)
[2017-05-28] MEDS: ATORVASTATIN 40 MG TAB PO SCH (08:06)
[2017-05-28] MEDS: ENOXAPARIN 40 MG/0.4 ML SYRINGE SQ SCH (08:06)
[2017-05-28] MEDS: METOPROLOL TARTRATE 25 MG TAB PO SCH ×3 (08:07→21:43)
[2017-05-28] MEDS: cefTRIAXone 2,000 MG in SODIUM CHLORIDE 0.9% 100 ML IVPB SCH (08:45)
[2017-05-28] MEDS: ESOMEPRAZOLE 20 MG in SODIUM CHLORIDE 0.9% 50 ML IVPB SCH (08:45)
[2017-05-28] MEDS: SODIUM CHLORIDE 0.9% 1,000 ML IV SCH ×2 (08:54→21:43)
[2017-05-28] MEDS ORDERED: ESOMEPRAZOLE 40 MG VIAL ONE (09:00)
[2017-05-28] MEDS: PROPOFOL 1,000 MG/100 ML VIAL IV SCH ×2 (09:52→15:02)
[2017-05-28] MEDS ORDERED: VANCOMYCIN TROUGH DUE 1 EACH MISC MISCELLANE ONE ×2 (11:00→12:15)
--- NOTE | 2017-05-28 11:05 | ECHOF ---
Referral Reason:eval pericardial effusion MEASUREMENTS -------- HEIGHT: 152.4 cm WEIGHT: 97.1 kg BP: 107/54 RAP: 5.00 mmHg RVSP: 21.42 mmHg FINDINGS -------- Sinus rhythm. Pt had Parcentesis 05/27, Limited Echo 05/28 & 05/29 to Re-acess Pericardial Effusion. This was a technically adequate study. Overall left ventricular systolic function is normal with, an EF between 55 - 60 %. There is a small, generalized pericardial effusion present. CONCLUSIONS -------- 1. Sinus rhythm. 2. Overall left ventricular systolic function is normal with, an EF between 55 - 60 %. 3. There is a small, generalized pericardial effusion present. PRODUCTION GRAPHIC DESIGNER: Tracy Heath RDCS
[2017-05-28 11:42] LABS: INR 1.2 (<1.2); Prothrombin Time 12.1 sec (9.0-12.0)
[2017-05-28 12:05] LABS: Total Protein 4.8 g/dL (6.3-8.2)
--- NOTE | 2017-05-28 12:21 | CDI ---
In responding to this query, please exercise your independent professional judgment. The [facility] Coding Staff and Clinical Documentation Specialists appreciate your assistance in clarifying documentation, maintaining compliance with coding guidelines, accurately documenting patients condition and capturing severity of illness. The fact that a question is asked does not imply that any particular answer is desired or expected. Communication forms are a method of clarifying documentation and are not made part of the Legal Health Record. Thank you in advance for your clarification. Last Revision, February 2017 Nadja Sanchez [address] [place] [address] Documentation Clarification Form Date: 05/28/2017 11:56:00 AM From: Heide Sebastian RN, CCDS Admit Date: 05/25/2017 4:31:00 PM Patient Name: Michael Araujo Visit Number: [id number] Dr. Walton History/Risk Factors: STEMI, Pneumonia, ETOH, chronic liver disease, smoker Clinical Indicators: 05/27 ID POWDER COATER Consult: "Patient also presented with sepsis, septic shock with possible right upper lobe pneumonia and infected pericardial effusion with impending acute hypoxic respiratory failure requiring intubation and mechanical ventilation." 05/27 ID Consult: "patient's alcohol withdrawal is being treated, and his respiratory failure hopefully respond well to antibiotic therapy, treatment of the purulent pericarditis and underlying sepsis. The extensive leukocytosis is directly related to the rhythm pericarditis and pneumonia, and with this current underlying status of alcoholism is a good prognostic sign and he was able to generate a leukocytosis. The fevers are starting to improve." WBC: 29.7/21.8/28.6/20.8 Left Shift: Neutrophils 28.7/20.4/26.7/19 Lactic acid: 2.7 Blood cultures: no growth after 24 hrs x2 Pericardial Fluid: +Strep Pneumonia Vitals signs on admission: Temp 99.2, HR 129, RR 30, B/P 122/88, Spo2 92% on 2L NC Other Clinical Indicators: Purulent Pericarditis, Pneumonia Treatment: ID Consult: Completed, see above note Antibiotics: Ceftriaxone 2gm IVPB Q 24 hrs, [id number] IVPB Q 12 hrs, Levaquin 750 mg IVPB OT, Zosyn 3.375 gm IVPB Q 8 hrs Levophed Gtt titrate for B/P IV Bolus: IVF @ 75cc/hr, no boluses given as pt has documented noncardigenic pulmonary edema with IV Lasix given In your professional opinion, please clarify if these findings signify one of the following conditions, whether the condition is POA, and cause, if known: Sepsis, ruled out Sepsis Severe Sepsis Septic Shock Unable to determine Other, please specify Present on Admission: Yes No * Identify the (suspected) organism * Link or clarify if there is associated (due to/with): - Organ failure - Shock SIRS Criteria: 2 or more of the following may indicate SIRS Temperature < 96.8F(36C) or > 101.0F (38C) Heart Rate > 90 bpm Respiratory Rate > 20 breaths/min or PaCO2 < 32 mmHg White Blood Cell Count > 12,000 or < 4,000 cells/mm3 or > 10% bands Lactate >2.0 mmol/L (>4.0 is equivalent to septic shock) Please document in your progress notes and discharge summary in order to capture severity of illness and risk of mortality. Include clinical findings that support your diagnosis. FYI: Press F11 to launch patient chart. Place X here if this finding has no clinical significance, is not applicable or if you are not able to provide any additional documentation. ROSSYD
--- NOTE | 2017-05-28 12:36 | CDI ---
In responding to this query, please exercise your independent professional judgment. The [facility] Coding Staff and Clinical Documentation Specialists appreciate your assistance in clarifying documentation, maintaining compliance with coding guidelines, accurately documenting patients condition and capturing severity of illness. The fact that a question is asked does not imply that any particular answer is desired or expected. Communication forms are a method of clarifying documentation and are not made part of the Legal Health Record. Thank you in advance for your clarification. Last Revision, January 2016 Nadja Sanchez [address] [facility] [place] [address] Documentation Clarification Form Date: 05/28/2017 12:22:00 PM From: Heide Sebastian RN, CCDS Admit Date: 05/25/2017 4:31:00 PM Patient Name: Michael Araujo Visit Number: [id number] Dr. Walton Shock is documented in the Cardiology and ID Consult Notes Patient history/risk factors: ETOH withdrawal, Pneumonia, Purulent Pericarditis, Acute STEMI, Acute hypoxic respiratory failure, noncardiogenic pulmonary edema Clinical Indicators: 05/25 Cardiology Consult: "Acute ST elevation myocardial infarction involving the apical lateral wall of the left ventricle. Clinical picture suggests impending cardiogenic shock." 05/27 ID Consult: "Patient also presented with sepsis, septic shock with possible right upper lobe pneumonia and infected pericardial effusion with impending acute hypoxic respiratory failure requiring intubation and mechanical ventilation." Vitals: RR 30-50, O2 requirements increasing from 2L nasal cannula to Nonrebreather, to BiPap, to ventilator, HT 120's, HR 120's Treatment: Levophed Gtt titrate for B/P Pt placed on mechanical ventilation, A-Line and CVC inserted IV Zosyn, IV Vanco In your professional opinion, can you please specify the type of shock if known ? Septic Shock o Suspected or known causative organism o Any associated organ failure Cardiogenic Shock o Cause Other, please specify Unable to determine Please document in your progress notes and discharge summary in order to capture severity of illness and risk of mortality. Include clinical findings that support your diagnosis. FYI: Press F11 to launch patient chart. Place X here if this finding has no clinical significance, is not applicable or if you are not able to provide any additional documentation. MILA
--- NOTE | 2017-05-28 12:43 | P.PN ---
Subjective 52-year-old gentleman, known history of alcoholism, presented to the hospital because of increased chest pain. He was found to have ST segment elevation myocardial infarction. The patient was taken to the [facility] on an emergent basis and he had stents placed into his LAD for a 70% LAD lesion. He was also found to have a large pericardial effusion and leukocytosis. He was seen by surgery and he underwent a bedside pericardiocentesis and total of 380 mL of fluid was drained from the pericardial space. Initial cultures are growing up hemolytic strep and the patient is or the being covered with a combination of Rocephin and vancomycin. Note that his initial chest x-ray on admission showed a right upper lobe consolidation and subsequent x-ray showed diffuse lateral pulmonary infiltrates typical of an underlying ARDS. The patient also went into delirium tremens. Overnight she had become quite a bit agitated and he had required a total of 8 mg of Ativan throughout the night. This morning, the patient is lethargic, and 2. restraints, confused and sometimes agitated. He is on a BiPAP at a pressure of 12/5 cm of water with an FiO2 of 100%. Earlier he was on a percent and he had to be brought up to 100% to maintain a saturation above 90%. He has good pulses in all 4 extremities. He is producing approximately 50 mL an hour. He is on normal saline at the rate of 75 mL an hour. White cell count remains elevated at 28.6. He is on no pressors for now. No significant electrode abnormalities. No acidosis. Echocardiogram that was done earlier showed a preserved LV function. The patient has a pericardial tube in place and total amount of output that was drained this morning is around 125, brownish to yellowish pericardial fluid. Note that the fluid analysis was done earlier showed elevated LDH and protein. White cell count is also elevated at 44,000 with 92% on a nuclear white cells. On 05/28/2017 the patient remains intubated on a mechanical ventilator. He is sedated with Diprivan and is calm and comfortable. Spiked a high rate of the prevent, the patient is still easily arousable. Hemodynamically stable on no pressors. He remains on a mechanical ventilator on assist control mode at the rate of 24, tidal volume 500, FiO2 of 50% and a PEEP of 8. The blood gases from this morning showed a pH of 7.42 with a pCO2 of 36 and pO2 of 69. I reviewed the chest x-ray from today that shows no interval change and there is diffuse breath and pulmonary infiltrates and ET tube is in a good location. The CAT scan of the chest that was done yesterday showed development of a loculated pleural effusion on the right more so a large pocket sitting in the posterior aspect of the right hemithorax which I think it's accessible for percutaneous drainage and for that reason I discussed this case with interventional radiology and will going to proceed with this procedure despite the fact that the patient on a combination of aspirin and Plavix. I think the benefits of this procedure will outweigh the risk. Meanwhile a bronchoscopy and the bronchioloalveolar lavage was done yesterday and the cultures are all negative thus far. The patient's pericardial effusion culture showed strep pneumonia which is sensitive to all antibiotics and the patient complications on a combination of vancomycin and Rocephin. Vancomycin may be ultimately discontinued and this will be discussed further with infectious disease. He will be started on tube feeds today. He is otherwise doing well and there has been no other issues over the past 24 hours. Objective - Vital Signs Vital signs: Vital Signs Temp 99.5 F 05/28/17 08:00 Pulse 95 05/28/17 12:24 Resp 24 05/28/17 12:24 BP 111/70 05/27/17 18:00 Pulse Ox 100 05/28/17 10:00 Intake & Output 05/27/17 05/28/17 05/28/17 18:59 06:59 18:59 Intake Total 2169.773 1820.414 555 Output Total 735 760 255 Balance 5668.817 6717.414 300 Weight 97.2 kg 97.6 kg Intake: IV 1850 1600 400 Sodium Chloride 0.9% 1, 1200 750 000 ml @ 150 mls/hr IV . Q6H40M [facility]IA[facility] Rx#:[id number] Sodium Chloride 0.9% 1, 600 300 000 ml @ 50 mls/hr IV . Q20H [facility] Rx#:[id number] Sodium Chloride 0.9% 1, 300 000 ml @ 75 mls/hr IV . [id number] I[facility]NA Rx#:[id number] Vancomycin 1,500 mg In 250 250 Sodium Chloride 0.9% 250 ml @ 125 mls/hr IVPB Q12H [facility] Rx#:[id number] cefTRIAXone 2,000 mg In 100 100 Sodium Chloride 0.9% 100 ml @ 100 mls/hr IVPB Q24HR [facility] Rx#:[id number] Intake, IV Titration 319.773 220.414 155 Amount Esomeprazole 20 mg In 50 Sodium Chloride 0.9% 50 ml @ 100 mls/hr IVPB DAILY [facility]NA Rx#:[id number] Norepinephrin 16 mg-0.9% 11.937 Ns Pmx 16 mg In 250 ml @ Titrate IV .Q0M [facility] Rx#: [id number] Norepinephrin 4 mg-0.9% 127.376 Ns Pmx 4 mg In 250 ml @ Titrate IV .Q0M [facility] Rx#: [id number] Propofol 1,000 mg In 100 105 ml @ Titrate IV .Q0M [facility] Rx#:[id number] Propofol 500 mg In Empty 105.460 220.414 Bag 1 bag @ Titrate IV . Q0M [facility] Rx#:[id number] Sodium Chloride 0.9% 1, 75 000 ml @ 75 mls/hr IV . [id number] DIANA Rx#:[id number] Output: Drainage 125 20 Anterior Medial Chest 125 20 Urine 610 760 235 Other: Voiding Method Indwelling Catheter Indwelling Catheter Indwelling Catheter ABP, PAP, CO, CI - Last Documented Arterial Blood Pressure 101/54 - Exam T Intubated on mechanical ventilator sedated, comfortable. Orogastric and orotracheal tube are both in place.Neck was supple and without jugular venous distension, thyromegaly, or carotid bruits. Carotids were easily palpable bilaterally. There was no adenopathy. Orogastric and oral tracheal tube are both in place.Head exam was generally normal. There was no scleral icterus or corneal arcus. Mucous membranes were moist. Lungs sounds are diminished bilaterally. Breath sounds are equal and symmetrical however. No wheezes. No significant orotracheal secretions. Heart sounds are regular, positive S1-S2 and there is a friction rub can be appreciated over the anterior chest wall. The pericardial tube, a triple lumen catheter which has been inserted substernally.Abdominal exam revealed normal bowel sounds. The abdomen was soft, non-tender, and without masses, organomegaly, or appreciable enlargement of the abdominal aorta.Examination of the extremities revealed easily palpable radial, femoral and pedal pulses. There was no cyanosis, clubbing or edema. Neurologically the patient is sedated - Labs CBC & Chem 7: 05/28/17 04:30 05/28/17 04:30 Labs: Abnormal Lab Results - Last 24 Hours (Table) 05/27/17 05/27/17 05/27/17 Range/Units 12:51 17:56 23:57 WBC (3.8-10.6) k/uL Neutrophils # (1.3-7.7) k/uL Lymphocytes # (1.0-4.8) k/uL PT (9.0-12.0) sec INR (<1.2) ABG pO2 (83-108) mmHg Chloride (98-107) mmol/L BUN (9-20) mg/dL Glucose (74-99) mg/dL POC Glucose (mg/dL) 143 H 154 H 137 H (75-99) mg/dL Calcium (8.4-10.2) mg/dL Magnesium (1.6-2.3) mg/dL Lactate Dehydrogenase (313-618) U/L Total Protein (6.3-8.2) g/dL 05/28/17 05/28/17 05/28/17 Range/Units 04:30 04:30 04:30 WBC 20.8 H (3.8-10.6) k/uL Neutrophils # 19.0 H (1.3-7.7) k/uL Lymphocytes # 0.7 L (1.0-4.8) k/uL PT (9.0-12.0) sec INR (<1.2) ABG pO2 (83-108) mmHg Chloride 108 H (98-107) mmol/L BUN 31 H (9-20) mg/dL Glucose 130 H (74-99) mg/dL POC Glucose (mg/dL) (75-99) mg/dL Calcium 7.7 L (8.4-10.2) mg/dL Magnesium 2.9 H (1.6-2.3) mg/dL Lactate Dehydrogenase 861 H (313-618) U/L Total Protein 4.8 L (6.3-8.2) g/dL 05/28/17 05/28/17 05/28/17 Range/Units 05:05 06:10 10:45 WBC (3.8-10.6) k/uL Neutrophils # (1.3-7.7) k/uL Lymphocytes # (1.0-4.8) k/uL PT 12.1 H (9.0-12.0) sec INR 1.2 H (<1.2) ABG pO2 69 L (83-108) mmHg Chloride (98-107) mmol/L BUN (9-20) mg/dL Glucose (74-99) mg/dL POC Glucose (mg/dL) 131 H (75-99) mg/dL Calcium (8.4-10.2) mg/dL Magnesium (1.6-2.3) mg/dL Lactate Dehydrogenase (313-618) U/L Total Protein (6.3-8.2) g/dL Microbiology - Last 24 Hours (Table) 05/26/17 09:47 Blood Culture - Preliminary Blood No Growth after 48 hours 05/26/17 09:47 Blood Culture - Preliminary Blood No Growth after 48 hours 05/27/17 11:50 Gram Stain - Preliminary Bronchial Washings - Random Bronchial Washings Culture - Preliminary 05/25/17 18:20 Gram Stain - Final Pericardial Fluid Body Fluid Culture - Final Streptococcus pneumoniae 05/27/17 11:50 Fungal Culture - Preliminary Bronchial Washings - Random 05/27/17 11:50 Acid Fast Bacilli Culture - Preliminary Bronchial Washings - Random 05/26/17 05:00 Urine Culture - Final Urine,Catheterized Assessment and Plan Plan: Assessment 1 acute hypoxic respiratory failure with development of diffuse breath and pulmonary infiltrates. CAT scan of the chest was reviewed and the findings are consistent with diffuse bilateral pneumonia with loculated right-sided pleural effusion with possibly empyema versus a complicated loculated parapneumonic fluids. Discussed the case with interventional radiology and were considering percutaneous drainage of the pleural effusion. 2 acute STEMI status post emergent cardiac catheterization and stenting of the LAD 3 acute infectious pneumococcal pericarditis, with a pericardial effusion/ infected pericardial fluid with cultures growing strep pneumo, status post percutaneous drainage of the pericardial effusion at the bedside and the patient has a triple lumen catheter placed within the pericardium. The fluid was drained again a total of 20 mL of fluid was again aspirated by the [facility] working with CT surgery. 4 alcoholism 5 delirium tremens currently inactive in CIWA protocol 6 hyponatremia, recovered 7 mild coagulopathy at presentation, recovered Plan The patient will be kept sedated, intubated on mechanical ventilator. No need for any vent changes for today. Blood gases was reviewed. Chest x-ray was reviewed. CAT scan of the chest was reviewed. Case discussed with interventional radiology. The patient needed percutaneous drainage of the loculated right-sided pleural effusion and this will be done with ultrasound guidance in the intensive care unit. The patient on aspirin and Plavix and I think the benefit outweighs the risk of the procedure and I discussed this with Dr. Eloy Hunt from interventional radiology. Meanwhile, the patient will be started on tube feeds. The patient will be continued on the same antibiotic coverage. Continue vent support. Continue monitoring the hemodynamics. Condition is very critical. The residual pericardial effusion was drained again through the pericardial tube/catheter today. We'll keep the catheter in for another 24 hours. We'll continue to follow make further recommendations based on the progress. Condition is critical. Case has been discussed with the family and base other consultants. This evaluation was done more than 30 minutes.
[2017-05-28 13:08] LABS: Glucose,Whole Blood 118 mg/dL (75-99)
[2017-05-28] MEDS: VANCOMYCIN 1,500 MG in SODIUM CHLORIDE 0.9% 250 ML IVPB SCH (13:08)
--- NOTE | 2017-05-28 13:10 | US ---
Ultrasound-guided therapeutic and diagnostic thoracentesis DATE OF EXAM: 05/28/2017 CLINICAL HISTORY: Suspected right empyema The patient is on Plavix which is typically held for 7 days prior to drainage tube insertion. However , the patient's referring physician said the patient could not wait the 7 days required and that ricky gent placement of the chest tube for empyema was needed. Referring physician felt current empyema and pulmonary status was life-threatening. Procedure was discussed with the patient's family. The risks, complications, benefits, and alternativ es were discussed and any questions were answered. This included notifying the patient and the referr ing physician requested the patient required emergent placement of tube despite being on anticoagulan t therapy. The risks including potential life-threatening bleeding from the procedure was discussed w ith the patient's family. Informed consent was obtained. Procedure performed bedside in the ICU with the patient in a lateral position. The patient was preppe d and draped in the usual sterile fashion. All elements of maximal barrier and sterile technique were utilized. Under ultrasound guidance, access into the pleural space was obtained, 18-gauge needle and there is placement of a guidewire. Serial dilation t o 8 Micronesian and placement of an 8 Micronesian drainage catheter. Ultrasound images demonstrated ideal place ment of the catheter. The patient was stable throughout the procedure and remained stable upon completion of the procedure. IMPRESSION: 1. Successful ultrasound guided chest tube insertion within the ICU at bedside.
--- NOTE | 2017-05-28 13:11 | XR ---
EXAMINATION TYPE: XR chest 1V portable DATE OF EXAM: 05/28/2017 COMPARISON: 05/28/2017 HISTORY: Chest tube insertion TECHNIQUE: Single frontal view of the chest is obtained. FINDINGS: Diffuse bilateral airspace disease is noted. Reduction in amount of pleural fluid on the r ight. Subsegmental infiltrate noted. No pneumothorax. Heart is enlarged and a left-sided PICC line no lester. ET and NG tube stable. IMPRESSION: 1. Right-sided chest tube noted with interval reduction in amount of pleural fluid and no sizable pne umothorax.
--- NOTE | 2017-05-28 13:27 | P.PN ---
Subjective Principal diagnosis: Large pericardial effusion with tamponade physiology with cultures growing Streptococcus pneumoniae, acute ST elevation myocardial infarction involving the apical-lateral wall of the left ventricle, history of alcohol abuse with active delirium tremens on CIWA protocol, history of chronic nicotine dependence , and chronic obstructive pulmonary disease. Acute hypoxic respiratory failure with development of diffuse pulmonary infiltrates, possible ARDS, requiring mechanical ventilation. POD #0 bronchoscopy with alveolar lavage. Pleural effusion, POD #0 right pleural chest tube placement POD #2 bedside echo guided pericardiocentesis and insertion of pericardial drain POD #2 left heart catheterization, coronary angiogram with placement of stent to his left anterior descending artery by Dr. Radha Gonzales. Patient is currently sedated on mechanical ventilation. He does wake up and move all 4 extremities as well as follow commands during sedation holiday. Objective - Vital Signs Vital signs: Vital Signs Temp 99.5 F 05/28/17 08:00 Pulse 95 05/28/17 12:24 Resp 24 05/28/17 12:24 BP 111/70 05/27/17 18:00 Pulse Ox 100 05/28/17 10:00 Intake & Output 05/27/17 05/28/17 05/28/17 18:59 06:59 18:59 Intake Total 2169.773 1820.414 555 Output Total 735 760 255 Balance 2208.978 5413.414 300 Weight 97.2 kg 97.6 kg Intake: IV 1850 1600 400 Sodium Chloride 0.9% 1, 1200 750 000 ml @ 150 mls/hr IV . Q6H40M [facility] Rx#:[id number] Sodium Chloride 0.9% 1, 600 300 000 ml @ 50 mls/hr IV . Q20H [facility] Rx#:[id number] Sodium Chloride 0.9% 1, 300 000 ml @ 75 mls/hr IV . [id number] [facility] Rx#:[id number] Vancomycin 1,500 mg In 250 250 Sodium Chloride 0.9% 250 ml @ 125 mls/hr IVPB Q12H [facility] Rx#:[id number] cefTRIAXone 2,000 mg In 100 100 Sodium Chloride 0.9% 100 ml @ 100 mls/hr IVPB Q24HR [facility] Rx#:[id number] Intake, IV Titration 319.773 220.414 155 Amount Esomeprazole 20 mg In 50 Sodium Chloride 0.9% 50 ml @ 100 mls/hr IVPB DAILY [facility] Rx#:[id number] Norepinephrin 16 mg-0.9% 11.937 Ns Pmx 16 mg In 250 ml @ Titrate IV .Q0M [facility] Rx#: [id number] Norepinephrin 4 mg-0.9% 127.376 Ns Pmx 4 mg In 250 ml @ Titrate IV .Q0M [facility] Rx#: [id number] Propofol 1,000 mg In 100 105 ml @ Titrate IV .Q0M [facility] Rx#:[id number] Propofol 500 mg In Empty 105.460 220.414 Bag 1 bag @ Titrate IV . Q0M [facility] Rx#:[id number] Sodium Chloride 0.9% 1, 75 000 ml @ 75 mls/hr IV . [id number] [facility] Rx#:[id number] Output: Drainage 125 20 Anterior Medial Chest 125 20 Urine 610 760 235 Other: Voiding Method Indwelling Catheter Indwelling Catheter Indwelling Catheter ABP, PAP, CO, CI - Last Documented Arterial Blood Pressure 101/54 - Constitutional General appearance: Present: no acute distress - Respiratory Details: Lungs sounds coarse bilaterally. Respirations even, nonlabored on mechanical ventilation. Current settings AC mode, FiO2 50%, tidal volume 500, respiratory rate 24, PEEP 8. Right pleural chest tube to -20 cm wall suction, draining serous fluid. - Cardiovascular Details: S1, S2 present. Regular rate and rhythm, normal sinus rhythm on telemetry. Mediastinal pericardial drain present, drained 20 mL straw-colored fluid today. Right radial a line present. Left subclavian triple-lumen central line present. - Gastrointestinal Gastrointestinal Comment(s): Abdomen soft, nontender, nondistended. Active bowel sounds 4 quadrants. OG tube present to low intermittent suction, green drainage. - Genitourinary Genitourinary Comment(s): Merino present draining clear, yellow urine. Output 30-60 mL per hour. - Musculoskeletal Musculoskeletal: Present: strength equal bilaterally - Psychiatric Psychiatric Comment(s): Sedated on mechanical ventilation. - Allied health notes Allied health notes reviewed: nursing - Labs CBC & Chem 7: 05/28/17 04:30 05/28/17 04:30 Labs: Abnormal Lab Results - Last 24 Hours (Table) 05/27/17 05/27/17 05/28/17 Range/Units 17:56 23:57 04:30 WBC 20.8 H (3.8-10.6) k/uL Neutrophils # 19.0 H (1.3-7.7) k/uL Lymphocytes # 0.7 L (1.0-4.8) k/uL PT (9.0-12.0) sec INR (<1.2) ABG pO2 (83-108) mmHg Chloride (98-107) mmol/L BUN (9-20) mg/dL Glucose (74-99) mg/dL POC Glucose (mg/dL) 154 H 137 H (75-99) mg/dL Calcium (8.4-10.2) mg/dL Magnesium (1.6-2.3) mg/dL Lactate Dehydrogenase (313-618) U/L Total Protein (6.3-8.2) g/dL 05/28/17 05/28/17 05/28/17 Range/Units 04:30 04:30 05:05 WBC (3.8-10.6) k/uL Neutrophils # (1.3-7.7) k/uL Lymphocytes # (1.0-4.8) k/uL PT (9.0-12.0) sec INR (<1.2) ABG pO2 69 L (83-108) mmHg Chloride 108 H (98-107) mmol/L BUN 31 H (9-20) mg/dL Glucose 130 H (74-99) mg/dL POC Glucose (mg/dL) (75-99) mg/dL Calcium 7.7 L (8.4-10.2) mg/dL Magnesium 2.9 H (1.6-2.3) mg/dL Lactate Dehydrogenase 861 H (313-618) U/L Total Protein 4.8 L (6.3-8.2) g/dL 05/28/17 05/28/17 Range/Units 06:10 10:45 WBC (3.8-10.6) k/uL Neutrophils # (1.3-7.7) k/uL Lymphocytes # (1.0-4.8) k/uL PT 12.1 H (9.0-12.0) sec INR 1.2 H (<1.2) ABG pO2 (83-108) mmHg Chloride (98-107) mmol/L BUN (9-20) mg/dL Glucose (74-99) mg/dL POC Glucose (mg/dL) 131 H (75-99) mg/dL Calcium (8.4-10.2) mg/dL Magnesium (1.6-2.3) mg/dL Lactate Dehydrogenase (313-618) U/L Total Protein (6.3-8.2) g/dL Microbiology - Last 24 Hours (Table) 05/26/17 09:47 Blood Culture - Preliminary Blood No Growth after 48 hours 05/26/17 09:47 Blood Culture - Preliminary Blood No Growth after 48 hours 05/27/17 11:50 Gram Stain - Preliminary Bronchial Washings - Random Bronchial Washings Culture - Preliminary 05/25/17 18:20 Gram Stain - Final Pericardial Fluid Body Fluid Culture - Final Streptococcus pneumoniae 05/27/17 11:50 Fungal Culture - Preliminary Bronchial Washings - Random 05/27/17 11:50 Acid Fast Bacilli Culture - Preliminary Bronchial Washings - Random 05/26/17 05:00 Urine Culture - Final Urine,Catheterized - Imaging and Cardiology Chest x-ray: image reviewed Assessment and Plan (1) COPD (chronic obstructive pulmonary disease) Status: Acute (2) Nicotine dependence Status: Acute (3) Alcoholism Status: Acute (4) Pericardial effusion Status: Acute (5) ST elevation myocardial infarction (STEMI) Status: Acute (6) Acute hypoxemic respiratory failure Status: Acute Plan: 1. Bedside echo obtained, results reviewed. 2. Will drain pericardial drain again tomorrow. 3. Wean O2, ventilator management per pulmonology services. 4. Continue antibiotics per infectious disease recommendations. 5. Continue aspirin, Lipitor, Plavix, beta ira per cardiology services. 6. GI/DVT prophylaxis. 7. Daily labs, x-rays. 8. More recommendations patient progresses. Time with Patient: Greater than 30
[2017-05-28 15:32] LABS: RBC, Body Fluid 440 /uL
[2017-05-28 17:49] LABS: Glucose,Whole Blood 152 mg/dL (75-99)
[2017-05-28 21:38] LABS: Total Protein, Body Fluid 4300 mg/dL
[2017-05-28] MEDS: amLODIPine 5 MG TAB PO SCH (21:42)
--- NOTE | 2017-05-28 22:25 | P.PN ---
Subjective Principal diagnosis: Purulent pericarditis This is a 52-year-old male who presented to [facility] emergency center on May 25 due to chest pain that had been going on for 5 days and worsening. Patient was found to have ST elevation and was taken to the clinical lab specialist with Dr. GRICELDA Gonzales and found to have a 60-70% lesion in the LAD and was subsequently stented. Patient also was found to have a large pericardial effusion and was started on Zosyn and Levaquin and admitted to the intensive care unit. He underwent a bedside echo guided pericardiocentesis and insertion of a pericardial drain done on May 25 with removal of 380 ML's of cloudy tannish fluid. Yesterday he had 225 mL removed in today 125 mL. Chest x -ray showed cardiomegaly, right upper lobe consolidation and bibasilar at infiltrate or atelectasis. He is also followed by Dr. Angel from pulmonary medicine and patient was on BiPAP this morning pulseox was 80% with agitation and confusion and ended up being intubated today. He has presented with a temperature of 101.1, white count of 29.7, sodium 123, blood sugar 314, lactic acid 2.7. Urinalysis was cloudy, protein 1+, blood moderate, leukocyte esterase trace, wbc's 15, clumps rare bacteria rare. Urine culture is in progress and blood cultures status received. Pericardial fluid alphahemolytic strep. Patient has history of drinking 18 beers per day and is on the CIWA protocol. Bronchoscopy was performed. Patient remains intubated sedated and mechanically ventilated. Tube feeding has started today Patient does have a chest tube now in place Objective - Vital Signs Vital signs: Vital Signs Temp 100.1 F H 05/28/17 20:00 Pulse 104 H 05/28/17 22:00 Resp 24 05/28/17 22:00 BP 111/70 05/27/17 18:00 Pulse Ox 100 05/28/17 22:00 Intake & Output 05/28/17 05/28/17 05/29/17 06:59 18:59 06:59 Intake Total 9543.627 2128 280 Output Total 760 830 230 Balance 1060.414 755 50 Weight 97.2 kg 97.6 kg Intake: IV 1600 1050 150 Sodium Chloride 0.9% 1, 750 000 ml @ 150 mls/hr IV . Q6H40M [facility] Rx#:[id number] Sodium Chloride 0.9% 1, 600 700 150 000 ml @ 50 mls/hr IV . Q20H [facility] Rx#:[id number] Vancomycin 1,500 mg In 250 250 Sodium Chloride 0.9% 250 ml @ 125 mls/hr IVPB Q12H [facility] Rx#:[id number] cefTRIAXone 2,000 mg In 100 Sodium Chloride 0.9% 100 ml @ 100 mls/hr IVPB Q24HR [facility] Rx#:[id number] Intake, IV Titration 220.414 535 Amount Esomeprazole 20 mg In 50 Sodium Chloride 0.9% 50 ml @ 100 mls/hr IVPB DAILY [facility] Rx#:[id number] Propofol 1,000 mg In 100 310 ml @ Titrate IV .Q0M [facility] Rx#:[id number] Propofol 50 ml As IV .STK 175 -[facility] Rx#:[id number] Propofol 500 mg In Empty 220.414 Bag 1 bag @ Titrate IV . Q0M [facility] Rx#:[id number] Tube Feeding 70 Other 60 Output: Chest Tube Drainage 290 10 Chest Tube Right 290 10 Posterior Chest Drainage 20 Anterior Medial Chest 20 Urine 760 520 220 Other: Voiding Method Indwelling Catheter Indwelling Catheter ABP, PAP, CO, CI - Last Documented Arterial Blood Pressure 110/55 - Exam Gen: This is a 52-year-old male. He is currently intubated and appears to be comfortable on sedation. HEENT: Head is atraumatic, normocephalic. Sclerae is anicteric. Dentition is in poor order NECK: Supple. No JVD. No lymphadenopathy. No thyromegaly. LUNGS: Diminished bilaterally with scattered crackles. Decreased breath sounds especially to the right base, chest tubes in place with improved aeration. HEART: Regular rate and rhythm. No murmur. Her cardial chest tube in place. No crunch or crackle is heard ABDOMEN: Soft. Bowel sounds are present. No masses. No tenderness. EXTREMITIES: No pedal edema. No calf swelling NEUROLOGICAL: Patient is intubated and on sedation Skin is without rash or visualized breakdown - Labs CBC & Chem 7: 05/28/17 04:30 05/28/17 04:30 Labs: Abnormal Lab Results - Last 24 Hours (Table) 05/27/17 05/28/17 05/28/17 Range/Units 23:57 04:30 04:30 WBC 20.8 H (3.8-10.6) k/uL Neutrophils # 19.0 H (1.3-7.7) k/uL Lymphocytes # 0.7 L (1.0-4.8) k/uL PT (9.0-12.0) sec INR (<1.2) ABG pO2 (83-108) mmHg Chloride 108 H (98-107) mmol/L BUN 31 H (9-20) mg/dL Glucose 130 H (74-99) mg/dL POC Glucose (mg/dL) 137 H (75-99) mg/dL Calcium 7.7 L (8.4-10.2) mg/dL Magnesium 2.9 H (1.6-2.3) mg/dL Lactate Dehydrogenase (313-618) U/L Total Protein (6.3-8.2) g/dL 05/28/17 05/28/17 05/28/17 Range/Units 04:30 05:05 06:10 WBC (3.8-10.6) k/uL Neutrophils # (1.3-7.7) k/uL Lymphocytes # (1.0-4.8) k/uL PT (9.0-12.0) sec INR (<1.2) ABG pO2 69 L (83-108) mmHg Chloride (98-107) mmol/L BUN (9-20) mg/dL Glucose (74-99) mg/dL POC Glucose (mg/dL) 131 H (75-99) mg/dL Calcium (8.4-10.2) mg/dL Magnesium (1.6-2.3) mg/dL Lactate Dehydrogenase 861 H (313-618) U/L Total Protein 4.8 L (6.3-8.2) g/dL 05/28/17 05/28/17 05/28/17 Range/Units 10:45 13:06 17:48 WBC (3.8-10.6) k/uL Neutrophils # (1.3-7.7) k/uL Lymphocytes # (1.0-4.8) k/uL PT 12.1 H (9.0-12.0) sec INR 1.2 H (<1.2) ABG pO2 (83-108) mmHg Chloride (98-107) mmol/L BUN (9-20) mg/dL Glucose (74-99) mg/dL POC Glucose (mg/dL) 118 H 152 H (75-99) mg/dL Calcium (8.4-10.2) mg/dL Magnesium (1.6-2.3) mg/dL Lactate Dehydrogenase (313-618) U/L Total Protein (6.3-8.2) g/dL Microbiology - Last 24 Hours (Table) 05/28/17 12:55 Body Fluid Culture - Preliminary Pleural Fluid 05/28/17 12:55 Anaerobic Culture - Preliminary Pleural Fluid 05/26/17 09:47 Blood Culture - Preliminary Blood No Growth after 48 hours 05/26/17 09:47 Blood Culture - Preliminary Blood No Growth after 48 hours 05/27/17 11:50 Gram Stain - Preliminary Bronchial Washings - Random Bronchial Washings Culture - Preliminary 05/25/17 18:20 Gram Stain - Final Pericardial Fluid Body Fluid Culture - Final Streptococcus pneumoniae 05/27/17 11:50 Fungal Culture - Preliminary Bronchial Washings - Random 05/27/17 11:50 Acid Fast Bacilli Culture - Preliminary Bronchial Washings - Random Laboratory Results WBC 20.8 k/uL (3.8-10.6) H 05/28/17 04:30 RBC 4.37 m/uL (4.30-5.90) 05/28/17 04:30 Hgb 13.8 gm/dL (13.0-17.5) 05/28/17 04:30 Hct 42.9 % (39.0-53.0) 05/28/17 04:30 MCV 98.3 fL (80.0-100.0) 05/28/17 04:30 MCH 31.6 pg (25.0-35.0) 05/28/17 04:30 MCHC 32.2 g/dL (31.0-37.0) 05/28/17 04:30 RDW 13.1 % (11.5-15.5) 05/28/17 04:30 Plt Count 294 k/uL (150-450) 05/28/17 04:30 Neutrophils % 92 % 05/28/17 04:30 Neutrophils % (Manual) 54.5 % 05/26/17 05:35 Band Neutrophils % 39.0 % 05/26/17 05:35 Lymphocytes % 3 % 05/28/17 04:30 Lymphocytes % (Manual) 4.5 % 05/26/17 05:35 Monocytes % 2 % 05/28/17 04:30 Monocytes % (Manual) 1.5 % 05/26/17 05:35 Eosinophils % 0 % 05/28/17 04:30 Basophils % 1 % 05/28/17 04:30 Metamyelocytes % 0.5 % 05/26/17 05:35 Neutrophils # 19.0 k/uL (1.3-7.7) H 05/28/17 04:30 Neutrophils # (Manual) 20.4 k/uL (1.3-7.7) H 05/26/17 05:35 Lymphocytes # 0.7 k/uL (1.0-4.8) L 05/28/17 04:30 Lymphocytes # (Manual) 1.0 k/uL (1.0-4.8) 05/26/17 05:35 Monocytes # 0.4 k/uL (0-1.0) 05/28/17 04:30 Monocytes # (Manual) 0.3 k/uL (0-1.0) 05/26/17 05:35 Eosinophils # 0.1 k/uL (0-0.7) 05/28/17 04:30 Basophils # 0.1 k/uL (0-0.2) 05/28/17 04:30 Nucleated RBCs 0 /100 WBC (0-0) 05/26/17 05:35 Manual Slide Review Performed 05/25/17 15:00 Toxic Granulation Present 05/26/17 05:35 RBC Morphology Normal 05/25/17 15:00 Polychromasia Present 05/26/17 05:35 Poikilocytosis (manual Present 05/26/17 05:35 Anisocytosis (manual) Present 05/26/17 05:35 PT 12.1 sec (9.0-12.0) H 05/28/17 10:45 INR 1.2 (<1.2) H 05/28/17 10:45 APTT 25.9 sec (22.0-30.0) 05/25/17 15:00 D-Dimer 1.32 mg/L FEU (<0.60) H 05/25/17 15:00 Sample Site A-LINE 05/28/17 05:05 ABG pH 7.42 (7.35-7.45) 05/28/17 05:05 ABG pCO2 36 mmHg (35-45) 05/28/17 05:05 ABG pO2 69 mmHg (83-108) L 05/28/17 05:05 ABG HCO3 23 mmol/L (21-25) 05/28/17 05:05 ABG Total CO2 24 mmol/L (19-24) 05/28/17 05:05 ABG O2 Saturation 94.0 % (94-97) 05/28/17 05:05 ABG Base Excess -0.8 mmol/L 05/28/17 05:05 ABG Hematocrit 48 % (34.0-46.0) H 05/25/17 16:00 FiO2 40 % 05/28/17 05:05 Sodium 140 mmol/L (137-145) 05/28/17 04:30 Potassium 3.7 mmol/L (3.5-5.1) 05/28/17 04:30 Chloride 108 mmol/L (98-107) H 05/28/17 04:30 Carbon Dioxide 24 mmol/L (22-30) 05/28/17 04:30 Anion Gap 8 mmol/L 05/28/17 04:30 BUN 31 mg/dL (9-20) H 05/28/17 04:30 Creatinine 0.70 mg/dL (0.66-1.25) 05/28/17 04:30 Est GFR (MDRD) Af Amer >60 (>60 ml/min/1.73 sqM) 05/28/17 04:30 Est GFR (MDRD) Non-Af >60 (>60 ml/min/1.73 sqM) 05/28/17 04:30 Glucose 130 mg/dL (74-99) H 05/28/17 04:30 POC Glucose (mg/dL) 152 mg/dL (75-99) H 05/28/17 17:48 POC Glu Personal Banker ID Josie Truong 05/28/17 17:[address] Glu mg/dL 105 mg/dL 05/25/17 15:00 Hemoglobin A1c 5.3 % (4.2-6.1) 05/25/17 15:00 Lactic Ac Sepsis Rflx Y 05/26/17 06:08 Plasma Lactic Acid Rob 2.7 mmol/L (0.7-2.0) H* 05/26/17 09:47 Calcium 7.7 mg/dL (8.4-10.2) L 05/28/17 04:30 Phosphorus 2.9 mg/dL (2.5-4.5) 05/28/17 04:30 Magnesium 2.9 mg/dL (1.6-2.3) H 05/28/17 04:30 Total Bilirubin 2.2 mg/dL (0.2-1.3) H 05/25/17 15:00 AST 117 U/L (17-59) H 05/25/17 15:00 ALT 72 U/L (21-72) 05/25/17 15:00 Alkaline Phosphatase 75 U/L (38-126) 05/25/17 15:00 Lactate Dehydrogenase 861 U/L (313-618) H 05/28/17 04:30 Total Creatine Kinase 29 U/L (55-170) L 05/25/17 15:00 CK-MB (CK-2) 0.6 ng/mL (0.0-2.4) 05/25/17 15:00 CK-MB (CK-2) Rel Index 2.1 05/25/17 15:00 Troponin I 0.030 ng/mL (0.000-0.034) 05/26/17 05:35 Total Protein 4.8 g/dL (6.3-8.2) L 05/28/17 04:30 Albumin 3.2 g/dL (3.5-5.0) L 05/25/17 15:00 Urine Color Yellow 05/26/17 05:00 Urine Appearance Cloudy (Clear) 05/26/17 05:00 Urine pH 5.5 (5.0-8.0) 05/26/17 05:00 Ur Specific [place] 1.030 (1.001-1.035) 05/26/17 05:00 Urine Protein 1+ (Negative) H 05/26/17 05:00 Urine Glucose (UA) Negative (Negative) 05/26/17 05:00 Urine Ketones Negative (Negative) 05/26/17 05:00 Urine Blood Moderate (Negative) H 05/26/17 05:00 Urine Nitrite Negative (Negative) 05/26/17 05:00 Urine Bilirubin Negative (Negative) 05/26/17 05:00 Urine Urobilinogen 2.0 mg/dL (<2.0) 05/26/17 05:00 Ur Leukocyte Esterase Trace (Negative) H 05/26/17 05:00 Urine RBC 10 /hpf (0-5) H 05/26/17 05:00 Urine WBC 15 /hpf (0-5) H 05/26/17 05:00 Urine WBC Clumps Rare /hpf (None) H 05/26/17 05:00 Ur Squamous Epith Cells 1 /hpf (0-4) 05/26/17 05:00 Amorphous Sediment Rare /hpf (None) H 05/26/17 05:00 Urine Bacteria Rare /hpf (None) H 05/26/17 05:00 Urine Mucus Rare /hpf (None) H 05/26/17 05:00 Fluid Source Pleural 05/28/17 12:55 Fluid Color Yellow 05/25/17 18:20 Fluid Appearance Hazy 05/28/17 12:55 Fluid RBC 440 /uL 05/28/17 12:55 Fluid Nucleated Cells 170 /uL 05/28/17 12:55 Fluid Polynuclear WBCs 83 % 05/28/17 12:55 Fluid Mononuclear WBCs 17 % 05/28/17 12:55 Body Fluid Glucose Source [facility] 05/25/17 18:20 Fluid Glucose <4 mg/dL 05/25/17 18:20 Body Fluid Protein Source [facility] 05/25/17 18:20 Fluid Total Protein 6200 mg/dL 05/25/17 18:20 Body Fluid LDH Source [facility] 05/25/17 18:20 Fluid LDH 2839 U/L 05/25/17 18:20 Fluid Comment 05/25/17 18:20 Vancomycin Trough 24.6 ug/mL 05/28/17 04:30 Virus Source See Below 05/27/17 11:50 Viral Test See Below 05/27/17 11:50 Virus Analysis Interp See Below 05/27/17 11:50 Blood Type O Positive 05/25/17 15:00 Blood Type Recheck No 05/25/17 15:00 Antibody Screen NEGATIVE 05/25/17 15:00 Transfuse Plasma 05/25/2017 05/25/17 15:00 Spec Expiration Date 05/28/2017 - 229905/25/17 15:00 Microbiology 05/28/17 12:55 Pleural Fluid Body Fluid Culture - Preliminary 05/28/17 12:55 Pleural Fluid Anaerobic Culture - Preliminary 05/26/17 09:47 Blood Blood Culture - Preliminary No Growth after 48 hours 05/26/17 09:47 Blood Blood Culture - Preliminary No Growth after 48 hours 05/27/17 11:50 Bronchial Washings - Random Gram Stain - Preliminary 05/27/17 11:50 Bronchial Washings - Random Bronchial Washings Culture - Preliminary 05/25/17 18:20 Pericardial Fluid Gram Stain - Final 05/25/17 18:20 Pericardial Fluid Body Fluid Culture - Final Streptococcus pneumoniae 05/27/17 11:50 Bronchial Washings - Random Fungal Culture - Preliminary 05/27/17 11:50 Bronchial Washings - Random Acid Fast Bacilli Culture - Preliminary 05/26/17 05:00 Urine,Catheterized Urine Culture - Final 05/25/17 18:20 Pericardial Fluid Acid Fast Bacilli Smear - Final 05/25/17 18:20 Pericardial Fluid Acid Fast Bacilli Culture - Preliminary 05/25/17 18:20 Pericardial Fluid Anaerobic Culture - Preliminary Assessment and Plan (1) Alcoholism Status: Acute (2) Acute hypoxemic respiratory failure Status: Acute (3) Purulent pericarditis Narrative/Plan: 52-year-old gentleman who has a history of alcoholism who has radiological evidence of pneumonia. It is highly likely that the pneumonia resulted in the purulent pericarditis via direct extension. alpha streptococci have been isolated. It has been noted to be Streptococcus pneumoniae that is not drug- resistant. Antibiotic therapy with Rocephin and vancomycin is being utilized at this time pending further data. Blood cultures negative so far. As noted the patient's alcohol withdrawal is being treated, and his respiratory failure hopefully respond well to antibiotic therapy, treatment of the purulent pericarditis and underlying sepsis. The extensive leukocytosis is directly related to the purulent pericarditis and pneumonia, and with this current underlying status of alcoholism is a good prognostic sign and he was able to generate a leukocytosis. Chest tube is been placed in further cultures are pending. Blood cultures negative so far. Leukocytosis is improving. Overall there is been improvement of his status. FiO2 is decreased. Did well with sedation holiday with following commands. Seems to be doing well with his alcohol withdrawal. Vancomycin can be discontinued at this point in time Status: Acute
--- NOTE | 2017-05-28 22:49 | P.PN ---
Subjective Principal diagnosis: Septic shock Mr. Araujo is a 52-year-old male with a past medical history of chronic low back pain, hypertension, alcohol abuse and nicotine dependence coming into the hospital with a chief complaint of chest pain. Patient has history of chronic low back pain and pain of his neck that has been going on but for the past 5 days his symptoms have worsened. Patient's chest pain got worse and he was complaining of 10 out of 10 and so called the EMS. The paramedics did perform an EKG which was suspicious for ST elevation OK. He was given aspirin and nitroglycerin and transferred to [facility] for further evaluation. So the eyewear consultant engineering patternmaker Dr. GRICELDA Gonzales was informed, who did an emergent cardiac catheterization. The patient had a stent placed in his LAD and was also noted to have a large pericardial effusion. So CT surgeon Dr. Multani came in and did a pericardiocentesis. There was 380 mL of fluid drained out. And the patient has been transferred to the ICU for further management and care. On 05/26/17- on the night of 05/26 the patient became very combative and was trying to put all his lines and the pericardial catheter. The patient was placed on a CIWA scale and given 10 mg of Ativan without much improvement in his symptoms. So eventually he was given Haldol after which the patient did calm down. Around 230 ml of fluid was drained from the pericardium. On 05/27/17 - patient was pretty confused, agitated and was on restraints , he was placed on BiPAP and as he was desaturating. Dr. Angel had to intubate the patient around 10 AM today due to impending respiratory failure due to ARDS. Patient also had a bronchoscopy done by Dr. Angel this morning. Patient's pericardial fluid came back to be positive for Streptococcus and he has been started on ceftriaxone. On 05/28/2017- patient still remains intubated. He is on a Levophed drip. Sedated on propofol. Patient had paracentesis done today and 400 mL of fluid was drained. And the chest tube was placed. Review of systems could not be done as the patient is intubated and sedated. Objective - Vital Signs Vital signs: Vital Signs Temp 100.1 F H 05/28/17 20:00 Pulse 104 H 05/28/17 22:00 Resp 24 05/28/17 22:00 BP 111/70 05/27/17 18:00 Pulse Ox 100 05/28/17 22:00 Intake & Output 05/28/17 05/28/17 05/29/17 06:59 18:59 06:59 Intake Total 0844.553 2725 280 Output Total 760 830 230 Balance 1060.414 755 50 Weight 97.2 kg 97.6 kg Intake: IV 1600 1050 150 Sodium Chloride 0.9% 1, 750 000 ml @ 150 mls/hr IV . Q6H40M [facility] Rx#:[id number] Sodium Chloride 0.9% 1, 600 700 150 000 ml @ 50 mls/hr IV . Q20H [facility] Rx#:[id number] Vancomycin 1,500 mg In 250 250 Sodium Chloride 0.9% 250 ml @ 125 mls/hr IVPB Q12H [facility] Rx#:[id number] cefTRIAXone 2,000 mg In 100 Sodium Chloride 0.9% 100 ml @ 100 mls/hr IVPB Q24HR [facility] Rx#:[id number] Intake, IV Titration 220.414 535 Amount Esomeprazole 20 mg In 50 Sodium Chloride 0.9% 50 ml @ 100 mls/hr IVPB DAILY [facility] Rx#:[id number] Propofol 1,000 mg In 100 310 ml @ Titrate IV .Q0M [facility] Rx#:[id number] Propofol 50 ml As IV .STK 175 -MED [facility] Rx#:[id number] Propofol 500 mg In Empty 220.414 Bag 1 bag @ Titrate IV . Q0M [facility] Rx#:[id number] Tube Feeding 70 Other 60 Output: Chest Tube Drainage 290 10 Chest Tube Right 290 10 Posterior Chest Drainage 20 Anterior Medial Chest 20 Urine 760 520 220 Other: Voiding Method Indwelling Catheter Indwelling Catheter Indwelling Catheter ABP, PAP, CO, CI - Last Documented Arterial Blood Pressure 110/55 - Exam GEN. APPEARANCE: he is intubated HEAD EXAM: Atraumatic EYE EXAM: No pallor no icterus ENT EXAM: ET tube in place NECK EXAM: No carotid bruit. No thyromegaly RESPIRATORY EXAM: Diminished breath sounds bilaterally. Coarse breath sounds in all lung [place] with crackles. Right chest tube in place. CARDIOVASCULAR EXAM: Tachycardia. S1 and S2 heard. Pericardial drainage tube in place. GI/ABDOMINAL EXAM: Soft nontender. No guarding or rigidity. EXTREMITIES EXAM: No cyanosis, no swelling, no edema. NEUROLOGICAL EXAM: Sedated and intubated SKIN EXAM: warm to touch. No rash. - Labs CBC & Chem 7: 05/28/17 04:30 05/28/17 04:30 Labs: Abnormal Lab Results - Last 24 Hours (Table) 05/27/17 05/28/17 05/28/17 Range/Units 23:57 04:30 04:30 WBC 20.8 H (3.8-10.6) k/uL Neutrophils # 19.0 H (1.3-7.7) k/uL Lymphocytes # 0.7 L (1.0-4.8) k/uL PT (9.0-12.0) sec INR (<1.2) ABG pO2 (83-108) mmHg Chloride 108 H (98-107) mmol/L BUN 31 H (9-20) mg/dL Glucose 130 H (74-99) mg/dL POC Glucose (mg/dL) 137 H (75-99) mg/dL Calcium 7.7 L (8.4-10.2) mg/dL Magnesium 2.9 H (1.6-2.3) mg/dL Lactate Dehydrogenase (313-618) U/L Total Protein (6.3-8.2) g/dL 05/28/17 05/28/17 05/28/17 Range/Units 04:30 05:05 06:10 WBC (3.8-10.6) k/uL Neutrophils # (1.3-7.7) k/uL Lymphocytes # (1.0-4.8) k/uL PT (9.0-12.0) sec INR (<1.2) ABG pO2 69 L (83-108) mmHg Chloride (98-107) mmol/L BUN (9-20) mg/dL Glucose (74-99) mg/dL POC Glucose (mg/dL) 131 H (75-99) mg/dL Calcium (8.4-10.2) mg/dL Magnesium (1.6-2.3) mg/dL Lactate Dehydrogenase 861 H (313-618) U/L Total Protein 4.8 L (6.3-8.2) g/dL 05/28/17 05/28/17 05/28/17 Range/Units 10:45 13:06 17:48 WBC (3.8-10.6) k/uL Neutrophils # (1.3-7.7) k/uL Lymphocytes # (1.0-4.8) k/uL PT 12.1 H (9.0-12.0) sec INR 1.2 H (<1.2) ABG pO2 (83-108) mmHg Chloride (98-107) mmol/L BUN (9-20) mg/dL Glucose (74-99) mg/dL POC Glucose (mg/dL) 118 H 152 H (75-99) mg/dL Calcium (8.4-10.2) mg/dL Magnesium (1.6-2.3) mg/dL Lactate Dehydrogenase (313-618) U/L Total Protein (6.3-8.2) g/dL Microbiology - Last 24 Hours (Table) 05/28/17 12:55 Body Fluid Culture - Preliminary Pleural Fluid 05/28/17 12:55 Anaerobic Culture - Preliminary Pleural Fluid 05/26/17 09:47 Blood Culture - Preliminary Blood No Growth after 48 hours 05/26/17 09:47 Blood Culture - Preliminary Blood No Growth after 48 hours 05/27/17 11:50 Gram Stain - Preliminary Bronchial Washings - Random Bronchial Washings Culture - Preliminary 05/25/17 18:20 Gram Stain - Final Pericardial Fluid Body Fluid Culture - Final Streptococcus pneumoniae 05/27/17 11:50 Fungal Culture - Preliminary Bronchial Washings - Random 05/27/17 11:50 Acid Fast Bacilli Culture - Preliminary Bronchial Washings - Random Assessment and Plan Plan: ASSESSMENT Septic shock Acute hypoxic respiratory failure secondary to ARDS Pneumonia right upper lobe ST elevation OK status post stenting of LAD Pericardial effusion Alcohol withdrawal delirium tremens Chronic liver disease Chronic alcohol abuse Chronic nicotine dependence PLAN Patient has been intubated in the ICU this morning. He is sedated on propofol. He is on 10 mics of Levophed for a MAP to be above 60. Patient had pericardiocentesis with 380 mL drained initially , 230 mL of fluid darined yesterday and 125 ml yesterday. Pericardial fluid growing Streptococcus. He has been started on Rocephin. Patient had paracentesis done today with 400 mL of fluid drained and a chest tube was placed .Continue with GI DVT prophylaxis. Further recommendations to follow depending on the progress of the patient. Overall prognosis guarded.
[2017-05-29 00:24] LABS: Glucose,Whole Blood 159 mg/dL (75-99)
[2017-05-29] MEDS: INSULIN LISPRO (humaLOG) 300 UNIT/3 ML VIAL SQ SCH ×4 (00:25→18:24)
[2017-05-29 04:06] LABS: ABG Base Excess -0.6 mmol/L; ABG HCO3 24 mmol/L (21-25); ABG PCO2 38 mmHg (35-45); ABG PH 7.41 (7.35-7.45); ABG PO2 152 mmHg (83-108); ABG TCO2 25 mmol/L (19-24)
[2017-05-29 04:58] LABS: Basophils # (A) 0.1 k/uL (0-0.2); Basophils % (A) 1 %; CH 31.3; CHCM 31.5; Eosinophils # (A) 0.1 k/uL (0-0.7); Eosinophils % (A) 1 %; HCT 44.5 % (39.0-53.0); HDW 2.56; HGB 13.8 gm/dL (13.0-17.5); Luc # (Auto) 0.29; Luc % (Auto) 2; Lymphocytes # (A) 0.6 k/uL (1.0-4.8); Lymphocytes % (A) 3 %; MCH 31.1 pg (25.0-35.0); MCV 100.2 fL (80.0-100.0); Mean Platelet Volume 7.8; Monocytes % (A) 6 %; Neutrophils # (A) 14.6 k/uL (1.3-7.7); Neutrophils % (A) 88 %; RBC 4.44 m/uL (4.30-5.90); RDW 13.4 % (11.5-15.5); WBC 16.6 k/uL (3.8-10.6); WBC (Perox) 15.86
[2017-05-29 05:11] LABS: Anion Gap 7 mmol/L; Blood Urea Nitrogen 30 mg/dL (9-20); Calcium 7.7 mg/dL (8.4-10.2); Carbon Dioxide 25 mmol/L (22-30); Chloride 111 mmol/L (98-107); Glucose 167 mg/dL (74-99); Non-African American GFR(MDRD) >60 (>60 ml/min/1.73 sqM); Phosphorous 2.8 mg/dL (2.5-4.5); Potassium 4.2 mmol/L (3.5-5.1); Sodium 143 mmol/L (137-145)
[2017-05-29] MEDS: PROPOFOL 1,000 MG/100 ML VIAL IV SCH ×2 (05:18→18:00)
[2017-05-29 06:28] LABS: Glucose,Whole Blood 171 mg/dL (75-99)
--- NOTE | 2017-05-29 07:08 | XR ---
EXAMINATION TYPE: XR chest 1V portable DATE OF EXAM: 05/29/2017 HISTORY: Tube placement. REFERENCE: Previous study dated 05/28/2017. FINDINGS: The patient is ET tube and NG tube as well as the patient's left subclavian catheter remain in place, unchanged in appearance. There is a right pleural drain in place. I cannot exclude a small apical pneumothorax on the right. There is a small right-sided effusion. Aeration of the lungs has i mproved.. IMPRESSION: 1. IMPROVED AERATION OF BOTH LUNGS. 2. I COULD NOT EXCLUDE A SMALL APICAL PNEUMOTHORAX ON THE RIGHT.
[2017-05-29] MEDS: ESOMEPRAZOLE 20 MG in SODIUM CHLORIDE 0.9% 50 ML IVPB SCH (08:10)
[2017-05-29] MEDS: cefTRIAXone 2,000 MG in SODIUM CHLORIDE 0.9% 100 ML IVPB SCH (08:10)
[2017-05-29] MEDS: CHLORHEXIDINE GLUCONATE 15 ML CUP MUCOUS MEM SCH ×2 (08:11→21:36)
[2017-05-29] MEDS: ENOXAPARIN 40 MG/0.4 ML SYRINGE SQ SCH (08:11)
[2017-05-29] MEDS: ASPIRIN 81 MG CHEW PO SCH (08:11)
[2017-05-29] MEDS: CLOPIDOGREL 75 MG TAB PO SCH (08:11)
[2017-05-29] MEDS: ATORVASTATIN 40 MG TAB PO SCH (08:11)
[2017-05-29] MEDS: METOPROLOL TARTRATE 25 MG TAB PO SCH ×3 (08:12→21:36)
[2017-05-29] MEDS ORDERED: ESOMEPRAZOLE 40 MG VIAL ONE (08:30)
[2017-05-29] MEDS: IPRATROPIUM-ALBUTEROL 3 ML NEB INHALATION SCH ×4 (08:35→19:18)
--- NOTE | 2017-05-29 08:46 | PN ---
This is a gentleman who has bacterial pericarditis with growing Gram-positive cocci, had thoracentesis performed today by Dr. Angel. Remains hemodynamically fairly stable. Off pressors. He still is on the ventilator. Prognosis for this patient is bad with active bacterial infection and also recent PCI. He is making urine. S1, S2 heard normally. Rub is not audible. Lungs reveal bilateral diminished air entry. Abdomen and lower extremity exam is unchanged. From a cardiac standpoint I will continue aspirin, Plavix and statins and continue his other medications. Antibiotics are per Dr. Carlton and his ICU management is as per Dr. Angel. No new suggestions. Prognosis remains poor. MTDD
--- NOTE | 2017-05-29 10:01 | P.PN ---
Subjective 52-year-old gentleman, known history of alcoholism, presented to the hospital because of increased chest pain. He was found to have ST segment elevation myocardial infarction. The patient was taken to the [facility] on an emergent basis and he had stents placed into his LAD for a 70% LAD lesion. He was also found to have a large pericardial effusion and leukocytosis. He was seen by surgery and he underwent a bedside pericardiocentesis and total of 380 mL of fluid was drained from the pericardial space. Initial cultures are growing up hemolytic strep and the patient is or the being covered with a combination of Rocephin and vancomycin. Note that his initial chest x-ray on admission showed a right upper lobe consolidation and subsequent x-ray showed diffuse lateral pulmonary infiltrates typical of an underlying ARDS. The patient also went into delirium tremens. Overnight she had become quite a bit agitated and he had required a total of 8 mg of Ativan throughout the night. This morning, the patient is lethargic, and 2. restraints, confused and sometimes agitated. He is on a BiPAP at a pressure of 12/5 cm of water with an FiO2 of 100%. Earlier he was on a percent and he had to be brought up to 100% to maintain a saturation above 90%. He has good pulses in all 4 extremities. He is producing approximately 50 mL an hour. He is on normal saline at the rate of 75 mL an hour. White cell count remains elevated at 28.6. He is on no pressors for now. No significant electrode abnormalities. No acidosis. Echocardiogram that was done earlier showed a preserved LV function. The patient has a pericardial tube in place and total amount of output that was drained this morning is around 125, brownish to yellowish pericardial fluid. Note that the fluid analysis was done earlier showed elevated LDH and protein. White cell count is also elevated at 44,000 with 92% on a nuclear white cells. On 05/28/2017 the patient remains intubated on a mechanical ventilator. He is sedated with Diprivan and is calm and comfortable. Spiked a high rate of the prevent, the patient is still easily arousable. Hemodynamically stable on no pressors. He remains on a mechanical ventilator on assist control mode at the rate of 24, tidal volume 500, FiO2 of 50% and a PEEP of 8. The blood gases from this morning showed a pH of 7.42 with a pCO2 of 36 and pO2 of 69. I reviewed the chest x-ray from today that shows no interval change and there is diffuse breath and pulmonary infiltrates and ET tube is in a good location. The CAT scan of the chest that was done yesterday showed development of a loculated pleural effusion on the right more so a large pocket sitting in the posterior aspect of the right hemithorax which I think it's accessible for percutaneous drainage and for that reason I discussed this case with interventional radiology and will going to proceed with this procedure despite the fact that the patient on a combination of aspirin and Plavix. I think the benefits of this procedure will outweigh the risk. Meanwhile a bronchoscopy and the bronchioloalveolar lavage was done yesterday and the cultures are all negative thus far. The patient's pericardial effusion culture showed strep pneumonia which is sensitive to all antibiotics and the patient complications on a combination of vancomycin and Rocephin. Vancomycin may be ultimately discontinued and this will be discussed further with infectious disease. He will be started on tube feeds today. He is otherwise doing well and there has been no other issues over the past 24 hours. On 05/29/2017 the patient is being seen in the follow-up. The patient remains intubated on a mechanical ventilator and sedated and calm and comfortable. As mentioned earlier, there was a concern of a empyema. Based on that I talked interventional radiology and were able to drain the loculated pleural fluid on the right. The fluid was nonpurulent. The white cell count within the fluid was nonelevated and the cultures still pending for now. The procedure was not the bedside successfully a total of 600 mL of fluid was aspirated from the right lung. At this point in time the right-sided chest tube is connected to Pleur-evac and is not draining actively. The chest x-ray however shows marked improvement in the pneumonia and in the loculated pleural fluid that was seen on the right. ET tube is sitting high in the trachea. The patient is an assist -control mode at the rate of 24, tidal volume of 500, FiO2 of 50% and a PEEP of 8. Morning blood gases showed a pH of 7.41 with a pCO2 of 38 and pO2 of 152 and there has been marked improvement in his oxygenation. The only positive cultures from his pericardial fluid which is strep pneumo and the patient on high-dose Rocephin. Vancomycin was discontinued by infectious disease as the strep pneumo has been sensitive. He was dynamically stable. Tolerating his tube feeds. Was given a sedation holiday this morning and he was able to wake up and follow commands appropriately. The pericardial tube is not draining at this point. Objective - Vital Signs Vital signs: Vital Signs Temp 98.0 F 05/29/17 09:00 Pulse 96 05/29/17 09:00 Resp 24 05/29/17 09:00 BP 111/70 05/27/17 18:00 Pulse Ox 100 05/29/17 09:00 Intake & Output 05/28/17 05/29/17 05/29/17 18:59 06:59 18:59 Intake Total 1585 1155 390 Output Total 830 755 220 Balance 755 400 170 Weight 97.6 kg 98.6 kg Intake: IV 1050 550 250 Sodium Chloride 0.9% 1, 700 550 150 000 ml @ 50 mls/hr IV . Q20H [facility] Rx#:[id number] Vancomycin 1,500 mg In 250 Sodium Chloride 0.9% 250 ml @ 125 mls/hr IVPB Q12H [facility] Rx#:[id number] cefTRIAXone 2,000 mg In 100 100 Sodium Chloride 0.9% 100 ml @ 100 mls/hr IVPB Q24HR [facility] Rx#:[id number] Intake, IV Titration 535 100 Amount Esomeprazole 20 mg In 50 Sodium Chloride 0.9% 50 ml @ 100 mls/hr IVPB DAILY [facility] Rx#:[id number] Propofol 1,000 mg In 100 310 100 ml @ Titrate IV .Q0M [facility] Rx#:[id number] Propofol 50 ml As IV .STK 175 -MED [facility] Rx#:[id number] Tube Feeding 385 140 Other 120 Output: Chest Tube Drainage 290 10 30 Chest Tube Right 290 10 30 Posterior Chest Drainage 20 0 Anterior Medial Chest 20 0 Urine 520 745 190 Other: Voiding Method Indwelling Catheter Indwelling Catheter Indwelling Catheter ABP, PAP, CO, CI - Last Documented Arterial Blood Pressure 108/59 - Exam T Intubated on mechanical ventilator sedated, comfortable. Orogastric and orotracheal tube are both in place.Neck was supple and without jugular venous distension, thyromegaly, or carotid bruits. Carotids were easily palpable bilaterally. There was no adenopathy. Orogastric and oral tracheal tube are both in place.Head exam was generally normal. There was no scleral icterus or corneal arcus. Mucous membranes were moist. Lungs sounds are diminished bilaterally. Breath sounds are equal and symmetrical however. No wheezes. No significant orotracheal secretions. Heart sounds are regular, positive S1-S2 and there is a friction rub can be appreciated over the anterior chest wall. The pericardial tube, a triple lumen catheter which has been inserted substernally.Abdominal exam revealed normal bowel sounds. The abdomen was soft, non-tender, and without masses, organomegaly, or appreciable enlargement of the abdominal aorta.Examination of the extremities revealed easily palpable radial, femoral and pedal pulses. There was no cyanosis, clubbing or edema. Neurologically the patient is sedated - Labs CBC & Chem 7: 05/29/17 04:40 05/29/17 04:40 Labs: Abnormal Lab Results - Last 24 Hours (Table) 05/28/17 05/28/17 05/28/17 Range/Units 04:30 10:45 13:06 WBC (3.8-10.6) k/uL MCV (80.0-100.0) fL Neutrophils # (1.3-7.7) k/uL Lymphocytes # (1.0-4.8) k/uL PT 12.1 H (9.0-12.0) sec INR 1.2 H (<1.2) ABG pO2 (83-108) mmHg ABG Total CO2 (19-24) mmol/L ABG O2 Saturation (94-97) % Chloride (98-107) mmol/L BUN (9-20) mg/dL Glucose (74-99) mg/dL POC Glucose (mg/dL) 118 H (75-99) mg/dL Calcium (8.4-10.2) mg/dL Magnesium (1.6-2.3) mg/dL Lactate Dehydrogenase 861 H (313-618) U/L Total Protein 4.8 L (6.3-8.2) g/dL 05/28/17 05/29/17 05/29/17 Range/Units 17:48 00:22 03:40 WBC (3.8-10.6) k/uL MCV (80.0-100.0) fL Neutrophils # (1.3-7.7) k/uL Lymphocytes # (1.0-4.8) k/uL PT (9.0-12.0) sec INR (<1.2) ABG pO2 152 H (83-108) mmHg ABG Total CO2 25 H (19-24) mmol/L ABG O2 Saturation 99.0 H (94-97) % Chloride (98-107) mmol/L BUN (9-20) mg/dL Glucose (74-99) mg/dL POC Glucose (mg/dL) 152 H 159 H (75-99) mg/dL Calcium (8.4-10.2) mg/dL Magnesium (1.6-2.3) mg/dL Lactate Dehydrogenase (313-618) U/L Total Protein (6.3-8.2) g/dL 05/29/17 05/29/17 05/29/17 Range/Units 04:40 04:40 06:26 WBC 16.6 H (3.8-10.6) k/uL MCV 100.2 H (80.0-100.0) fL Neutrophils # 14.6 H (1.3-7.7) k/uL Lymphocytes # 0.6 L (1.0-4.8) k/uL PT (9.0-12.0) sec INR (<1.2) ABG pO2 (83-108) mmHg ABG Total CO2 (19-24) mmol/L ABG O2 Saturation (94-97) % Chloride 111 H (98-107) mmol/L BUN 30 H (9-20) mg/dL Glucose 167 H (74-99) mg/dL POC Glucose (mg/dL) 171 H (75-99) mg/dL Calcium 7.7 L (8.4-10.2) mg/dL Magnesium 3.0 H (1.6-2.3) mg/dL Lactate Dehydrogenase (313-618) U/L Total Protein (6.3-8.2) g/dL Microbiology - Last 24 Hours (Table) 05/27/17 11:50 Gram Stain - Final Bronchial Washings - Random Bronchial Washings Culture - Final Rachel albicans 05/28/17 12:55 Gram Stain - Preliminary Pleural Fluid Body Fluid Culture - Preliminary 05/27/17 11:50 Acid Fast Bacilli Smear - Final Bronchial Washings - Random Acid Fast Bacilli Culture - Preliminary 05/28/17 12:55 Anaerobic Culture - Preliminary Pleural Fluid 05/26/17 09:47 Blood Culture - Preliminary Blood No Growth after 48 hours 05/26/17 09:47 Blood Culture - Preliminary Blood No Growth after 48 hours 05/25/17 18:20 Gram Stain - Final Pericardial Fluid Body Fluid Culture - Final Streptococcus pneumoniae Assessment and Plan Plan: Assessment 1 acute hypoxic respiratory failure with development of diffuse breath and pulmonary infiltrates. CAT scan of the chest was reviewed and the findings are consistent with diffuse bilateral pneumonia with loculated right-sided pleural effusion with possibly empyema versus a complicated loculated parapneumonic fluids. A small bore chest tube was inserted to the right hemithorax and total of 600 mL the pleural fluid was aspirated. The cultures been negative at this point. While, there has been significant improvement in the pulmonary infiltration and oxygenation on today's evaluation. The patient remains intubated on a mechanical ventilator. 2 acute STEMI status post emergent cardiac catheterization and stenting of the LAD 3 acute infectious pneumococcal pericarditis, with a pericardial effusion/ infected pericardial fluid with cultures growing strep pneumo, status post percutaneous drainage of the pericardial effusion at the bedside and the patient has a triple lumen catheter placed within the pericardium. The output from the pericardial tube is minimal at this point, essentially non 4 alcoholism 5 delirium tremens 6 hyponatremia, recovered 7 mild coagulopathy at presentation, recovered Plan The patient is significantly improved. Oxygenation is improved. The chest x- ray findings improved. He is hemodynamically stable. We'll cut down the FiO2 down to 40%. We'll cut down the PEEP down to 5. Repeat the blood gases in an hour and if the numbers are still adequate and the patient is oxygenating appropriately, I will start his weaning process. The patient was given a sedation holiday this morning and he seemed to be very appropriate and following commands and he did not have any signs of delirium tremens. I think it's reasonable to consider further weaning if the patient continues to oxygenate well with above-mentioned vent changes. The IV Fluids to KVO. Continue IV Rocephin. Stop Vancomycin. Continue Tube Feeds for Now. We'll Continue to Follow Make Further Recommendations Based on His Progress. Critically Care Evaluation. This Was Done in More Than 30 Minutes. Time with Patient: Greater than 30
--- NOTE | 2017-05-29 10:24 | P.PN ---
<Mandie Romero - Last Filed: 05/29/17 10:17> Subjective Principal diagnosis: Large pericardial effusion with tamponade physiology with cultures growing Streptococcus pneumoniae, acute ST elevation myocardial infarction involving the apical-lateral wall of the left ventricle, history of alcohol abuse with active delirium tremens on CIWA protocol, history of chronic nicotine dependence , and chronic obstructive pulmonary disease. Acute hypoxic respiratory failure with development of diffuse pulmonary infiltrates, possible ARDS, requiring mechanical ventilation. POD #1 bronchoscopy with alveolar lavage. Pleural effusion, POD #1 right pleural chest tube placement POD #3 bedside echo guided pericardiocentesis and insertion of pericardial drain POD #3 left heart catheterization, coronary angiogram with placement of stent to his left anterior descending artery by Dr. Radha Gonzales. Patient is currently sedated on mechanical ventilation. He does wake up and move all 4 extremities as well as follow commands during sedation holiday. Had right pleural chest tube placed yesterday. Had limited echo done yesterday morning demonstrating small pericardial effusion still present. Objective - Vital Signs Vital signs: Vital Signs Temp 98.0 F 05/29/17 09:00 Pulse 96 05/29/17 09:00 Resp 24 05/29/17 09:00 BP 111/70 05/27/17 18:00 Pulse Ox 100 05/29/17 09:00 Intake & Output 05/28/17 05/29/17 05/29/17 18:59 06:59 18:59 Intake Total 1585 1155 390 Output Total 830 755 220 Balance 755 400 170 Weight 97.6 kg 98.6 kg Intake: IV 1050 550 250 Sodium Chloride 0.9% 1, 700 550 150 000 ml @ 50 mls/hr IV . Q20H [facility] Rx#:[id number] Vancomycin 1,500 mg In 250 Sodium Chloride 0.9% 250 ml @ 125 mls/hr IVPB Q12H [facility] Rx#:[id number] cefTRIAXone 2,000 mg In 100 100 Sodium Chloride 0.9% 100 ml @ 100 mls/hr IVPB Q24HR [facility] Rx#:[id number] Intake, IV Titration 535 100 Amount Esomeprazole 20 mg In 50 Sodium Chloride 0.9% 50 ml @ 100 mls/hr IVPB DAILY [facility] Rx#:[id number] Propofol 1,000 mg In 100 310 100 ml @ Titrate IV .Q0M [facility] Rx#:[id number] Propofol 50 ml As IV .STK 175 -MED [facility] Rx#:[id number] Tube Feeding 385 140 Other 120 Output: Chest Tube Drainage 290 10 30 Chest Tube Right 290 10 30 Posterior Chest Drainage 20 0 Anterior Medial Chest 20 0 Urine 520 745 190 Other: Voiding Method Indwelling Catheter Indwelling Catheter Indwelling Catheter ABP, PAP, CO, CI - Last Documented Arterial Blood Pressure 108/59 - Constitutional General appearance: Present: no acute distress - Respiratory Details: Lungs sounds diminished bilaterally. Respirations even, nonlabored on mechanical ventilation. Current settings AC mode, FiO2 50%, tidal 500, respiratory rate 24, PEEP 8. Right pleural chest tube to -27 m wall suction, no drainage overnight, 350 mL serous drainage since placement. - Cardiovascular Details: S1, S2 present. Regular rate and rhythm, normal sinus rhythm on telemetry. Right radial A-line, left subclavian central line present. Mediastinal pericardial drain present, 85 mL straw-colored fluid drained today. - Gastrointestinal Gastrointestinal Comment(s): Abdomen soft, nontender, nondistended. Active bowel sounds 4 quadrants. OG tube present. Receiving tube feedings at 35 mL per hour. - Genitourinary Genitourinary Comment(s): Merino present draining clear, yellow urine. Output 60-115 mL per hour. - Neurologic Neurologic Comment(s): Does open eyes and follow commands during sedation holiday. - Psychiatric Psychiatric Comment(s): Currently sedated on mechanical ventilation. - Allied health notes Allied health notes reviewed: nursing - Labs CBC & Chem 7: 05/29/17 04:40 05/29/17 04:40 Labs: Abnormal Lab Results - Last 24 Hours (Table) 05/28/17 05/28/17 05/28/17 Range/Units 04:30 10:45 13:06 WBC (3.8-10.6) k/uL MCV (80.0-100.0) fL Neutrophils # (1.3-7.7) k/uL Lymphocytes # (1.0-4.8) k/uL PT 12.1 H (9.0-12.0) sec INR 1.2 H (<1.2) ABG pO2 (83-108) mmHg ABG Total CO2 (19-24) mmol/L ABG O2 Saturation (94-97) % Chloride (98-107) mmol/L BUN (9-20) mg/dL Glucose (74-99) mg/dL POC Glucose (mg/dL) 118 H (75-99) mg/dL Calcium (8.4-10.2) mg/dL Magnesium (1.6-2.3) mg/dL Lactate Dehydrogenase 861 H (313-618) U/L Total Protein 4.8 L (6.3-8.2) g/dL 05/28/17 05/29/17 05/29/17 Range/Units 17:48 00:22 03:40 WBC (3.8-10.6) k/uL MCV (80.0-100.0) fL Neutrophils # (1.3-7.7) k/uL Lymphocytes # (1.0-4.8) k/uL PT (9.0-12.0) sec INR (<1.2) ABG pO2 152 H (83-108) mmHg ABG Total CO2 25 H (19-24) mmol/L ABG O2 Saturation 99.0 H (94-97) % Chloride (98-107) mmol/L BUN (9-20) mg/dL Glucose (74-99) mg/dL POC Glucose (mg/dL) 152 H 159 H (75-99) mg/dL Calcium (8.4-10.2) mg/dL Magnesium (1.6-2.3) mg/dL Lactate Dehydrogenase (313-618) U/L Total Protein (6.3-8.2) g/dL 05/29/17 05/29/17 05/29/17 Range/Units 04:40 04:40 06:26 WBC 16.6 H (3.8-10.6) k/uL MCV 100.2 H (80.0-100.0) fL Neutrophils # 14.6 H (1.3-7.7) k/uL Lymphocytes # 0.6 L (1.0-4.8) k/uL PT (9.0-12.0) sec INR (<1.2) ABG pO2 (83-108) mmHg ABG Total CO2 (19-24) mmol/L ABG O2 Saturation (94-97) % Chloride 111 H (98-107) mmol/L BUN 30 H (9-20) mg/dL Glucose 167 H (74-99) mg/dL POC Glucose (mg/dL) 171 H (75-99) mg/dL Calcium 7.7 L (8.4-10.2) mg/dL Magnesium 3.0 H (1.6-2.3) mg/dL Lactate Dehydrogenase (313-618) U/L Total Protein (6.3-8.2) g/dL Microbiology - Last 24 Hours (Table) 05/27/17 11:50 Gram Stain - Final Bronchial Washings - Random Bronchial Washings Culture - Final Rachel albicans 05/28/17 12:55 Gram Stain - Preliminary Pleural Fluid Body Fluid Culture - Preliminary 05/27/17 11:50 Acid Fast Bacilli Smear - Final Bronchial Washings - Random Acid Fast Bacilli Culture - Preliminary 05/28/17 12:55 Anaerobic Culture - Preliminary Pleural Fluid 05/26/17 09:47 Blood Culture - Preliminary Blood No Growth after 48 hours 05/26/17 09:47 Blood Culture - Preliminary Blood No Growth after 48 hours 05/25/17 18:20 Gram Stain - Final Pericardial Fluid Body Fluid Culture - Final Streptococcus pneumoniae - Imaging and Cardiology Chest x-ray: report reviewed, image reviewed Assessment and Plan (1) COPD (chronic obstructive pulmonary disease) Status: Acute (2) Nicotine dependence Status: Acute (3) Alcoholism Status: Acute (4) Pericardial effusion Status: Acute (5) ST elevation myocardial infarction (STEMI) Status: Acute (6) Acute hypoxemic respiratory failure Status: Acute Plan: 1. Bedside echo tomorrow per cardiology. 2. Will drain pericardial drain again tomorrow. 3. Wean O2, ventilator management per pulmonology services. Will monitor chest tube output. 4. Continue antibiotics per infectious disease recommendations. 5. Continue aspirin, Lipitor, Plavix, beta ira per cardiology services. 6. GI/DVT prophylaxis. 7. Daily labs, x-rays. 8. More recommendations patient progresses. Time with Patient: Greater than 30 <El Dumas - Last Filed: 05/29/17 14:06> Objective - Vital Signs Vital signs: Vital Signs Temp 98.6 F 05/29/17 13:00 Pulse 110 H 05/29/17 13:00 Resp 24 05/29/17 13:00 BP 111/70 05/27/17 18:00 Pulse Ox 97 05/29/17 13:00 Intake & Output 05/28/17 05/29/1717 18:59 06:59 18:59 Intake Total 1585 1155 660 Output Total 830 755 720 Balance 755 400 -60 Weight 97.6 kg 98.6 kg Intake: IV 1050 550 250 Sodium Chloride 0.9% 1, 700 550 150 000 ml @ 50 mls/hr IV . Q20H [facility] Rx#:[id number] Vancomycin 1,500 mg In 250 Sodium Chloride 0.9% 250 ml @ 125 mls/hr IVPB Q12H [facility] Rx#:[id number] cefTRIAXone 2,000 mg In 100 100 Sodium Chloride 0.9% 100 ml @ 100 mls/hr IVPB Q24HR [facility] Rx#:[id number] Intake, IV Titration 535 100 Amount Esomeprazole 20 mg In 50 Sodium Chloride 0.9% 50 ml @ 100 mls/hr IVPB DAILY [facility] Rx#:[id number] Propofol 1,000 mg In 100 310 100 ml @ Titrate IV .Q0M [facility] Rx#:[id number] Propofol 50 ml As IV .STK 175 -MED [facility] Rx#:[id number] Tube Feeding 385 350 Other 120 60 Output: Chest Tube Drainage 290 10 30 Chest Tube Right 290 10 30 Posterior Chest Drainage 20 85 Anterior Medial Chest 20 85 Urine 520 745 605 Other: Voiding Method Indwelling Catheter Indwelling Catheter Indwelling Catheter ABP, PAP, CO, CI - Last Documented Arterial Blood Pressure 141/63 - Labs CBC & Chem 7: 05/29/17 04:40 05/29/17 04:40 Labs: Abnormal Lab Results - Last 24 Hours (Table) 05/28/17 05/29/17 05/29/17 Range/Units 17:48 00:22 03:40 WBC (3.8-10.6) k/uL MCV (80.0-100.0) fL Neutrophils # (1.3-7.7) k/uL Lymphocytes # (1.0-4.8) k/uL ABG pH (7.35-7.45) ABG pCO2 (35-45) mmHg ABG pO2 152 H (83-108) mmHg ABG Total CO2 25 H (19-24) mmol/L ABG O2 Saturation 99.0 H (94-97) % Chloride (98-107) mmol/L BUN (9-20) mg/dL Glucose (74-99) mg/dL POC Glucose (mg/dL) 152 H 159 H (75-99) mg/dL Calcium (8.4-10.2) mg/dL Magnesium (1.6-2.3) mg/dL 05/29/17 05/29/17 05/29/17 Range/Units 04:40 04:40 06:26 WBC 16.6 H (3.8-10.6) k/uL MCV 100.2 H (80.0-100.0) fL Neutrophils # 14.6 H (1.3-7.7) k/uL Lymphocytes # 0.6 L (1.0-4.8) k/uL ABG pH (7.35-7.45) ABG pCO2 (35-45) mmHg ABG pO2 (83-108) mmHg ABG Total CO2 (19-24) mmol/L ABG O2 Saturation (94-97) % Chloride 111 H (98-107) mmol/L BUN 30 H (9-20) mg/dL Glucose 167 H (74-99) mg/dL POC Glucose (mg/dL) 171 H (75-99) mg/dL Calcium 7.7 L (8.4-10.2) mg/dL Magnesium 3.0 H (1.6-2.3) mg/dL 05/29/17 05/29/17 Range/Units 11:07 12:03 WBC (3.8-10.6) k/uL MCV (80.0-100.0) fL Neutrophils # (1.3-7.7) k/uL Lymphocytes # (1.0-4.8) k/uL ABG pH 7.46 H (7.35-7.45) ABG pCO2 34 L (35-45) mmHg ABG pO2 (83-108) mmHg ABG Total CO2 25 H (19-24) mmol/L ABG O2 Saturation 98.5 H (94-97) % Chloride (98-107) mmol/L BUN (9-20) mg/dL Glucose (74-99) mg/dL POC Glucose (mg/dL) 142 H (75-99) mg/dL Calcium (8.4-10.2) mg/dL Magnesium (1.6-2.3) mg/dL Microbiology - Last 24 Hours (Table) 05/26/17 09:47 Blood Culture - Preliminary Blood No Growth after 72 hours 05/26/17 09:47 Blood Culture - Preliminary Blood No Growth after 72 hours 05/27/17 11:50 Gram Stain - Final Bronchial Washings - Random Bronchial Washings Culture - Final Rachel albicans 05/28/17 12:55 Gram Stain - Preliminary Pleural Fluid Body Fluid Culture - Preliminary 05/27/17 11:50 Acid Fast Bacilli Smear - Final Bronchial Washings - Random Acid Fast Bacilli Culture - Preliminary 05/28/17 12:55 Anaerobic Culture - Preliminary Pleural Fluid Assessment and Plan Plan: The patient was seen and examined. I agree with the above assessment and plan. He remains intubated. His pericardial drain will be drained on a daily basis. He had approximately 85 mL of serous fluid drained this morning. Echocardiogram performed yesterday reveals a small generalized pericardial effusion. We will keep the drain for another 24 hours and reassess in the morning.
[2017-05-29] MEDS ORDERED: VANCOMYCIN TROUGH DUE 1 EACH MISC MISCELLANE ONE (11:00)
[2017-05-29 11:42] LABS: ABG Base Excess 0.9 mmol/L; ABG HCO3 24 mmol/L (21-25); ABG Oxygen Saturation 98.5 % (94-97); ABG PCO2 34 mmHg (35-45); ABG PH 7.46 (7.35-7.45); ABG PO2 107 mmHg (83-108); ABG TCO2 25 mmol/L (19-24)
[2017-05-29 12:05] LABS: Glucose,Whole Blood 142 mg/dL (75-99)
--- NOTE | 2017-05-29 14:39 | PN ---
Mr. Araujo is a patient with a bacterial pericarditis and pneumonia. His pericardial drainage tube drained another 85 mL today. He is on antibiotics, clinically doing somewhat better, hemodynamically stable. Not on pressors. Plan is to hopefully extubate him today. Cardiac-edwards no intervention. Will continue current medications and follow him closely. Aspirin and Plavix should be continued. Physical exam revealed blood pressure of 116/70, pulse rate is 80 per minute, S1 , S2, heard normally. Short systolic murmur noted. Lungs reveal diminished air entry. Abdomen is soft. Lower extremities revealed diminished pulses. Central nervous system limited exam did not reveal any focal deficits. Plan is to continue antibiotics, supportive care, possible extubation and continue his aspirin and Plavix as ordered including atorvastatin. After he is more awake, we will find out all his alcohol withdrawal situation is because he is known to be an alcoholic and has demonstrated delirium tremens-type picture. MILA
[2017-05-29 18:08] LABS: Glucose,Whole Blood 137 mg/dL (75-99)
[2017-05-29 21:06] LABS: Glucose,Whole Blood 129 mg/dL (75-99)
[2017-05-29] MEDS: amLODIPine 5 MG TAB PO SCH (21:36)
--- NOTE | 2017-05-29 21:39 | XR ---
EXAMINATION TYPE: XR abdomen 1V DATE OF EXAM: 05/29/2017 COMPARISON: NONE HISTORY: No bowel sounds TECHNIQUE: 2 views FINDINGS: There is no sign of intestinal obstruction or pneumoperitoneum. Fecal pattern is normal. Th ere is nasogastric tube noted in good position with the tip at the gastric fundus. Lung bases are justin ar. There are no pathologic calcifications over the kidneys. There is a pigtail drainage catheter ove r the right upper quadrant that apparently is in the pleural space. IMPRESSION: Nonacute abdomen.
[2017-05-29] MEDS: ENALAPRILAT 1.25 MG/ML 1 ML VIAL IVP PRN (22:24)
--- NOTE | 2017-05-29 22:25 | P.PN ---
Subjective Principal diagnosis: Purulent pericarditis This is a 52-year-old male who presented to [facility] emergency center on May 25 due to chest pain that had been going on for 5 days and worsening. Patient was found to have ST elevation and was taken to the labor crew supervisor with Dr. GRICELDA Gonzales and found to have a 60-70% lesion in the LAD and was subsequently stented. Patient also was found to have a large pericardial effusion and was started on Zosyn and Levaquin and admitted to the intensive care unit. He underwent a bedside echo guided pericardiocentesis and insertion of a pericardial drain done on May 25 with removal of 380 ML's of cloudy tannish fluid. Yesterday he had 225 mL removed in today 125 mL. Chest x -ray showed cardiomegaly, right upper lobe consolidation and bibasilar at infiltrate or atelectasis. He is also followed by Dr. Angel from pulmonary medicine and patient was on BiPAP this morning pulseox was 80% with agitation and confusion and ended up being intubated today. He has presented with a temperature of 101.1, white count of 29.7, sodium 123, blood sugar 314, lactic acid 2.7. Urinalysis was cloudy, protein 1+, blood moderate, leukocyte esterase trace, wbc's 15, clumps rare bacteria rare. Urine culture is in progress and blood cultures status received. Pericardial fluid alphahemolytic strep. Patient has history of drinking 18 beers per day and is on the CIWA protocol. Bronchoscopy was performed. Patient remains intubated sedated and mechanically ventilated. Tube feeding has started today Patient does have a chest tube now in place with decreasing amounts of drainage. Little drainage from the pericardial drain Objective - Vital Signs Vital signs: Vital Signs Temp 100.3 F H 05/29/17 20:00 Pulse 117 H 05/29/17 20:00 Resp 18 05/29/17 20:00 BP 111/70 05/27/17 18:00 Pulse Ox 99 05/29/17 20:00 Intake & Output 05/29/17 05/29/17 05/30/17 06:59 18:59 06:59 Intake Total 1155 1030 Output Total 755 1020 225 Balance 400 10 -225 Weight 98.6 kg Intake: IV 550 250 Sodium Chloride 0.9% 1, 550 150 000 ml @ 50 mls/hr IV . Q20H DIANA Rx#:[id number] cefTRIAXone 2,000 mg In 100 Sodium Chloride 0.9% 100 ml @ 100 mls/hr IVPB Q24HR DIANA Rx#:[id number] Intake, IV Titration 100 100 Amount Propofol 1,000 mg In 100 100 100 ml @ Titrate IV .Q0M DIANA Rx#:[id number] Tube Feeding 385 560 Other 120 120 Output: Chest Tube Drainage 10 30 Chest Tube Right 10 30 Posterior Chest Drainage 85 Anterior Medial Chest 85 Urine 745 905 225 Other: Voiding Method Indwelling Catheter Indwelling Catheter ABP, PAP, CO, CI - Last Documented Arterial Blood Pressure 146/64 - Exam Gen: This is a 52-year-old male. He is currently intubated and appears to be comfortable on sedation. HEENT: Head is atraumatic, normocephalic. Sclerae is anicteric. Dentition is in poor order NECK: Supple. No JVD. No lymphadenopathy. No thyromegaly. LUNGS: Diminished bilaterally with scattered crackles. Decreased breath sounds especially to the right base, chest tubes in place with improved aeration. HEART: Regular rate and rhythm. No murmur. Her cardial chest tube in place. No crunch or crackle is heard ABDOMEN: Soft. Bowel sounds are present. No masses. No tenderness. EXTREMITIES: No pedal edema. No calf swelling NEUROLOGICAL: Patient is intubated and on sedation Skin is without rash or visualized breakdown - Labs CBC & Chem 7: 05/29/17 04:40 05/29/17 04:40 Labs: Abnormal Lab Results - Last 24 Hours (Table) 05/29/17 05/29/17 05/29/17 Range/Units 00:22 03:40 04:40 WBC 16.6 H (3.8-10.6) k/uL MCV 100.2 H (80.0-100.0) fL Neutrophils # 14.6 H (1.3-7.7) k/uL Lymphocytes # 0.6 L (1.0-4.8) k/uL ABG pH (7.35-7.45) ABG pCO2 (35-45) mmHg ABG pO2 152 H (83-108) mmHg ABG Total CO2 25 H (19-24) mmol/L ABG O2 Saturation 99.0 H (94-97) % Chloride (98-107) mmol/L BUN (9-20) mg/dL Glucose (74-99) mg/dL POC Glucose (mg/dL) 159 H (75-99) mg/dL Calcium (8.4-10.2) mg/dL Magnesium (1.6-2.3) mg/dL 05/29/17 05/29/17 05/29/17 Range/Units 04:40 06:26 11:07 WBC (3.8-10.6) k/uL MCV (80.0-100.0) fL Neutrophils # (1.3-7.7) k/uL Lymphocytes # (1.0-4.8) k/uL ABG pH 7.46 H (7.35-7.45) ABG pCO2 34 L (35-45) mmHg ABG pO2 (83-108) mmHg ABG Total CO2 25 H (19-24) mmol/L ABG O2 Saturation 98.5 H (94-97) % Chloride 111 H (98-107) mmol/L BUN 30 H (9-20) mg/dL Glucose 167 H (74-99) mg/dL POC Glucose (mg/dL) 171 H (75-99) mg/dL Calcium 7.7 L (8.4-10.2) mg/dL Magnesium 3.0 H (1.6-2.3) mg/dL 05/29/17 05/29/17 05/29/17 Range/Units 12:03 18:06 21:04 WBC (3.8-10.6) k/uL MCV (80.0-100.0) fL Neutrophils # (1.3-7.7) k/uL Lymphocytes # (1.0-4.8) k/uL ABG pH (7.35-7.45) ABG pCO2 (35-45) mmHg ABG pO2 (83-108) mmHg ABG Total CO2 (19-24) mmol/L ABG O2 Saturation (94-97) % Chloride (98-107) mmol/L BUN (9-20) mg/dL Glucose (74-99) mg/dL POC Glucose (mg/dL) 142 H 137 H 129 H (75-99) mg/dL Calcium (8.4-10.2) mg/dL Magnesium (1.6-2.3) mg/dL Microbiology - Last 24 Hours (Table) 05/25/17 18:20 Anaerobic Culture - Final Pericardial Fluid 05/26/17 09:47 Blood Culture - Preliminary Blood No Growth after 72 hours 05/26/17 09:47 Blood Culture - Preliminary Blood No Growth after 72 hours 05/27/17 11:50 Gram Stain - Final Bronchial Washings - Random Bronchial Washings Culture - Final Rachel albicans 05/28/17 12:55 Gram Stain - Preliminary Pleural Fluid Body Fluid Culture - Preliminary 05/27/17 11:50 Acid Fast Bacilli Smear - Final Bronchial Washings - Random Acid Fast Bacilli Culture - Preliminary Laboratory Results WBC 16.6 k/uL (3.8-10.6) H 05/29/17 04:40 RBC 4.44 m/uL (4.30-5.90) 05/29/17 04:40 Hgb 13.8 gm/dL (13.0-17.5) 05/29/17 04:40 Hct 44.5 % (39.0-53.0) 05/29/17 04:40 MCV 100.2 fL (80.0-100.0) H 05/29/17 04:40 MCH 31.1 pg (25.0-35.0) 05/29/17 04:40 MCHC 31.0 g/dL (31.0-37.0) 05/29/17 04:40 RDW 13.4 % (11.5-15.5) 05/29/17 04:40 Plt Count 289 k/uL (150-450) 05/29/17 04:40 Neutrophils % 88 % 05/29/17 04:40 Neutrophils % (Manual) 54.5 % 05/26/17 05:35 Band Neutrophils % 39.0 % 05/26/17 05:35 Lymphocytes % 3 % 05/29/17 04:40 Lymphocytes % (Manual) 4.5 % 05/26/17 05:35 Monocytes % 6 % 05/29/17 04:40 Monocytes % (Manual) 1.5 % 05/26/17 05:35 Eosinophils % 1 % 05/29/17 04:40 Basophils % 1 % 05/29/17 04:40 Metamyelocytes % 0.5 % 05/26/17 05:35 Neutrophils # 14.6 k/uL (1.3-7.7) H 05/29/17 04:40 Neutrophils # (Manual) 20.4 k/uL (1.3-7.7) H 05/26/17 05:35 Lymphocytes # 0.6 k/uL (1.0-4.8) L 05/29/17 04:40 Lymphocytes # (Manual) 1.0 k/uL (1.0-4.8) 05/26/17 05:35 Monocytes # 1.0 k/uL (0-1.0) 05/29/17 04:40 Monocytes # (Manual) 0.3 k/uL (0-1.0) 05/26/17 05:35 Eosinophils # 0.1 k/uL (0-0.7) 05/29/17 04:40 Basophils # 0.1 k/uL (0-0.2) 05/29/17 04:40 Nucleated RBCs 0 /100 WBC (0-0) 05/26/17 05:35 Manual Slide Review Performed 05/25/17 15:00 Toxic Granulation Present 05/26/17 05:35 RBC Morphology Normal 05/25/17 15:00 Polychromasia Present 05/26/17 05:35 Poikilocytosis (manual Present 05/26/17 05:35 Anisocytosis (manual) Present 05/26/17 05:35 PT 12.1 sec (9.0-12.0) H 05/28/17 10:45 INR 1.2 (<1.2) H 05/28/17 10:45 APTT 25.9 sec (22.0-30.0) 05/25/17 15:00 D-Dimer 1.32 mg/L FEU (<0.60) H 05/25/17 15:00 Sample Site KELAYRES 05/29/17 11:07 ABG pH 7.46 (7.35-7.45) H 05/29/17 11:07 ABG pCO2 34 mmHg (35-45) L 05/29/17 11:07 ABG pO2 107 mmHg (83-108) 05/29/17 11:07 ABG HCO3 24 mmol/L (21-25) 05/29/17 11:07 ABG Total CO2 25 mmol/L (19-24) H 05/29/17 11:07 ABG O2 Saturation 98.5 % (94-97) H 05/29/17 11:07 ABG Base Excess 0.9 mmol/L 05/29/17 11:07 ABG Hematocrit 48 % (34.0-46.0) H 05/25/17 16:00 FiO2 40 % 05/29/17 11:07 Sodium 143 mmol/L (137-145) 05/29/17 04:40 Potassium 4.2 mmol/L (3.5-5.1) 05/29/17 04:40 Chloride 111 mmol/L (98-107) H 05/29/17 04:40 Carbon Dioxide 25 mmol/L (22-30) 05/29/17 04:40 Anion Gap 7 mmol/L 05/29/17 04:40 BUN 30 mg/dL (9-20) H 05/29/17 04:40 Creatinine 0.70 mg/dL (0.66-1.25) 05/29/17 04:40 Est GFR (MDRD) Af Amer >60 (>60 ml/min/1.73 sqM) 05/29/17 04:40 Est GFR (MDRD) Non-Af >60 (>60 ml/min/1.73 sqM) 05/29/17 04:40 Glucose 167 mg/dL (74-99) H 05/29/17 04:40 POC Glucose (mg/dL) 129 mg/dL (75-99) H 05/29/17 21:04 POC Glu Bench Press Operator ID Chrissy Wilder 05/29/17 21:[address] Glu mg/dL 105 mg/dL 05/25/17 15:00 Hemoglobin A1c 5.3 % (4.2-6.1) 05/25/17 15:00 Lactic Ac Sepsis Rflx Y 05/26/17 06:08 Plasma Lactic Acid Rob 2.7 mmol/L (0.7-2.0) H* 05/26/17 09:47 Calcium 7.7 mg/dL (8.4-10.2) L 05/29/17 04:40 Phosphorus 2.8 mg/dL (2.5-4.5) 05/29/17 04:40 Magnesium 3.0 mg/dL (1.6-2.3) H 05/29/17 04:40 Total Bilirubin 2.2 mg/dL (0.2-1.3) H 05/25/17 15:00 AST 117 U/L (17-59) H 05/25/17 15:00 ALT 72 U/L (21-72) 05/25/17 15:00 Alkaline Phosphatase 75 U/L (38-126) 05/25/17 15:00 Lactate Dehydrogenase 861 U/L (313-618) H 05/28/17 04:30 Total Creatine Kinase 29 U/L (55-170) L 05/25/17 15:00 CK-MB (CK-2) 0.6 ng/mL (0.0-2.4) 05/25/17 15:00 CK-MB (CK-2) Rel Index 2.1 05/25/17 15:00 Troponin I 0.030 ng/mL (0.000-0.034) 05/26/17 05:35 Total Protein 4.8 g/dL (6.3-8.2) L 05/28/17 04:30 Albumin 3.2 g/dL (3.5-5.0) L 05/25/17 15:00 Urine Color Yellow 05/26/17 05:00 Urine Appearance Cloudy (Clear) 05/26/17 05:00 Urine pH 5.5 (5.0-8.0) 05/26/17 05:00 Ur Specific Randall 1.030 (1.001-1.035) 05/26/17 05:00 Urine Protein 1+ (Negative) H 05/26/17 05:00 Urine Glucose (UA) Negative (Negative) 05/26/17 05:00 Urine Ketones Negative (Negative) 05/26/17 05:00 Urine Blood Moderate (Negative) H 05/26/17 05:00 Urine Nitrite Negative (Negative) 05/26/17 05:00 Urine Bilirubin Negative (Negative) 05/26/17 05:00 Urine Urobilinogen 2.0 mg/dL (<2.0) 05/26/17 05:00 Ur Leukocyte Esterase Trace (Negative) H 05/26/17 05:00 Urine RBC 10 /hpf (0-5) H 05/26/17 05:00 Urine WBC 15 /hpf (0-5) H 05/26/17 05:00 Urine WBC Clumps Rare /hpf (None) H 05/26/17 05:00 Ur Squamous Epith Cells 1 /hpf (0-4) 05/26/17 05:00 Amorphous Sediment Rare /hpf (None) H 05/26/17 05:00 Urine Bacteria Rare /hpf (None) H 05/26/17 05:00 Urine Mucus Rare /hpf (None) H 05/26/17 05:00 Fluid Source Pleural 05/28/17 12:55 Fluid Color Yellow 05/25/17 18:20 Fluid Appearance Hazy 05/28/17 12:55 Fluid RBC 440 /uL 05/28/17 12:55 Fluid Nucleated Cells 170 /uL 05/28/17 12:55 Fluid Polynuclear WBCs 83 % 05/28/17 12:55 Fluid Mononuclear WBCs 17 % 05/28/17 12:55 Body Fluid Glucose Source PARICA 05/25/17 18:20 Fluid Glucose <4 mg/dL 05/28/17 12:55 Body Fluid Protein Source PARICA 05/25/17 18:20 Fluid Total Protein 4300 mg/dL 05/28/17 12:55 Body Fluid LDH Source PARICA 05/25/17 18:20 Fluid LDH 3388 U/L 05/28/17 12:55 Fluid Comment 05/25/17 18:20 Vancomycin Trough 24.6 ug/mL 05/28/17 04:30 Virus Source See Below 05/27/17 11:50 Viral Test See Below 05/27/17 11:50 Virus Analysis Interp See Below 05/27/17 11:50 Blood Type O Positive 05/25/17 15:00 Blood Type Recheck No 05/25/17 15:00 Antibody Screen NEGATIVE 05/25/17 15:00 Transfuse Plasma 05/25/2017 05/25/17 15:00 Spec Expiration Date 05/28/2017 - 2300 05/25/17 15:00 Microbiology 05/25/17 18:20 Pericardial Fluid Anaerobic Culture - Final 05/26/17 09:47 Blood Blood Culture - Preliminary No Growth after 72 hours 05/26/17 09:47 Blood Blood Culture - Preliminary No Growth after 72 hours 05/27/17 11:50 Bronchial Washings - Random Gram Stain - Final 05/27/17 11:50 Bronchial Washings - Random Bronchial Washings Culture - Final Rachel albicans 05/28/17 12:55 Pleural Fluid Gram Stain - Preliminary 05/28/17 12:55 Pleural Fluid Body Fluid Culture - Preliminary 05/27/17 11:50 Bronchial Washings - Random Acid Fast Bacilli Smear - Final 05/27/17 11:50 Bronchial Washings - Random Acid Fast Bacilli Culture - Preliminary 05/28/17 12:55 Pleural Fluid Anaerobic Culture - Preliminary 05/25/17 18:20 Pericardial Fluid Gram Stain - Final 05/25/17 18:20 Pericardial Fluid Body Fluid Culture - Final Streptococcus pneumoniae 05/27/17 11:50 Bronchial Washings - Random Fungal Culture - Preliminary 05/26/17 05:00 Urine,Catheterized Urine Culture - Final 05/25/17 18:20 Pericardial Fluid Acid Fast Bacilli Smear - Final 05/25/17 18:20 Pericardial Fluid Acid Fast Bacilli Culture - Preliminary Assessment and Plan (1) Alcoholism Status: Acute (2) Acute hypoxemic respiratory failure Status: Acute (3) Purulent pericarditis Narrative/Plan: 52-year-old gentleman who has a history of alcoholism who has radiological evidence of pneumonia. It is highly likely that the pneumonia resulted in the purulent pericarditis via direct extension. alpha streptococci have been isolated. It has been noted to be Streptococcus pneumoniae that is not drug- resistant. Antibiotic therapy with Rocephin and vancomycin is being utilized at this time pending further data. Blood cultures negative so far. As noted the patient's alcohol withdrawal is being treated, and his respiratory failure hopefully respond well to antibiotic therapy, treatment of the purulent pericarditis and underlying sepsis. The extensive leukocytosis is directly related to the purulent pericarditis and pneumonia, and with this current underlying status of alcoholism is a good prognostic sign and he was able to generate a leukocytosis. Chest tube is been placed in further cultures are pending. Blood cultures negative so far. Leukocytosis is improving. Overall there is been improvement of his status. FiO2 is decreased. Did well with sedation holiday with following commands. Seems to be doing well with his alcohol withdrawal. Status: Acute
--- NOTE | 2017-05-30 00:06 | P.PN ---
Subjective Principal diagnosis: Septic shock Mr. Araujo is a 52-year-old male with a past medical history of chronic low back pain, hypertension, alcohol abuse and nicotine dependence coming into the hospital with a chief complaint of chest pain. Patient has history of chronic low back pain and pain of his neck that has been going on but for the past 5 days his symptoms have worsened. Patient's chest pain got worse and he was complaining of 10 out of 10 and so called the EMS. The paramedics did perform an EKG which was suspicious for ST elevation [place]. He was given aspirin and nitroglycerin and transferred to [facility] for further evaluation. So the induction furnace operator touch up worker Dr. GRICELDA Gonzales was informed, who did an emergent cardiac catheterization. The patient had a stent placed in his LAD and was also noted to have a large pericardial effusion. So CT surgeon Dr. Multani came in and did a pericardiocentesis. There was 380 mL of fluid drained out. And the patient has been transferred to the ICU for further management and care. On 05/26/17- on the night of 05/26 the patient became very combative and was trying to put all his lines and the pericardial catheter. The patient was placed on a CIWA scale and given 10 mg of Ativan without much improvement in his symptoms. So eventually he was given Haldol after which the patient did calm down. Around 230 ml of fluid was drained from the pericardium. On 05/27/17 - patient was pretty confused, agitated and was on restraints , he was placed on BiPAP and as he was desaturating. Dr. Angel had to intubate the patient around 10 AM today due to impending respiratory failure due to ARDS. Patient also had a bronchoscopy done by Dr. Angel this morning. Patient's pericardial fluid came back to be positive for Streptococcus and he has been started on ceftriaxone. On 05/28/2017- patient still remains intubated. He is on a Levophed drip. Sedated on propofol. Patient had thoracentesisdone today and 400 mL of fluid was drained. And the chest tube was placed. 05/29/2017 Patient failed a weaning trial this morning. With sedation holiday patient is able to move all his 4 extremities and follows simple commands. Cultures from bronchial washings showed no growth for the past 24 hours. Review of systems could not be done as the patient is intubated and sedated. Objective - Vital Signs Vital signs: Vital Signs Temp 100.3 F H 05/29/17 20:00 Pulse 110 H 05/29/17 22:00 Resp 28 H 05/29/17 22:00 BP 111/70 05/27/17 18:00 Pulse Ox 99 05/29/17 22:00 Intake & Output 05/29/17 05/29/17 05/30/17 06:59 18:59 06:59 Intake Total 1155 1030 175.824 Output Total 755 1020 225 Balance 400 10 -49.176 Weight 98.6 kg Intake: IV 550 250 Sodium Chloride 0.9% 1, 550 150 000 ml @ 50 mls/hr IV . Q20H DIANA Rx#:[id number] cefTRIAXone 2,000 mg In 100 Sodium Chloride 0.9% 100 ml @ 100 mls/hr IVPB Q24HR DIANA Rx#:[id number] Intake, IV Titration 100 100 40.824 Amount Propofol 1,000 mg In 100 100 100 40.824 ml @ Titrate IV .Q0M DIANA Rx#:[id number] Tube Feeding 385 560 105 Other 120 120 30 Output: Chest Tube Drainage 10 30 0 Chest Tube Right 10 30 0 Posterior Chest Drainage 85 Anterior Medial Chest 85 Urine 745 905 225 Other: Voiding Method Indwelling Catheter Indwelling Catheter ABP, PAP, CO, CI - Last Documented Arterial Blood Pressure 145/72 - Exam GEN. APPEARANCE: he is intubated HEAD EXAM: Atraumatic EYE EXAM: No pallor no icterus ENT EXAM: ET tube in place NECK EXAM: No carotid bruit. No thyromegaly RESPIRATORY EXAM: Diminished breath sounds bilaterally. Coarse breath sounds in all lung [place] with crackles. Right chest tube in place. CARDIOVASCULAR EXAM: Tachycardia. S1 and S2 heard. Pericardial drainage tube in place. GI/ABDOMINAL EXAM: Soft nontender. No guarding or rigidity. EXTREMITIES EXAM: No cyanosis, no swelling, no edema. NEUROLOGICAL EXAM: Sedated and intubated SKIN EXAM: warm to touch. No rash. - Labs CBC & Chem 7: 05/29/17 04:40 05/29/17 04:40 Labs: Abnormal Lab Results - Last 24 Hours (Table) 05/29/17 05/29/17 05/29/17 Range/Units 00:22 03:40 04:40 WBC 16.6 H (3.8-10.6) k/uL MCV 100.2 H (80.0-100.0) fL Neutrophils # 14.6 H (1.3-7.7) k/uL Lymphocytes # 0.6 L (1.0-4.8) k/uL ABG pH (7.35-7.45) ABG pCO2 (35-45) mmHg ABG pO2 152 H (83-108) mmHg ABG Total CO2 25 H (19-24) mmol/L ABG O2 Saturation 99.0 H (94-97) % Chloride (98-107) mmol/L BUN (9-20) mg/dL Glucose (74-99) mg/dL POC Glucose (mg/dL) 159 H (75-99) mg/dL Calcium (8.4-10.2) mg/dL Magnesium (1.6-2.3) mg/dL 05/29/17 05/29/17 05/29/17 Range/Units 04:40 06:26 11:07 WBC (3.8-10.6) k/uL MCV (80.0-100.0) fL Neutrophils # (1.3-7.7) k/uL Lymphocytes # (1.0-4.8) k/uL ABG pH 7.46 H (7.35-7.45) ABG pCO2 34 L (35-45) mmHg ABG pO2 (83-108) mmHg ABG Total CO2 25 H (19-24) mmol/L ABG O2 Saturation 98.5 H (94-97) % Chloride 111 H (98-107) mmol/L BUN 30 H (9-20) mg/dL Glucose 167 H (74-99) mg/dL POC Glucose (mg/dL) 171 H (75-99) mg/dL Calcium 7.7 L (8.4-10.2) mg/dL Magnesium 3.0 H (1.6-2.3) mg/dL 05/29/17 05/29/17 05/29/17 Range/Units 12:03 18:06 21:04 WBC (3.8-10.6) k/uL MCV (80.0-100.0) fL Neutrophils # (1.3-7.7) k/uL Lymphocytes # (1.0-4.8) k/uL ABG pH (7.35-7.45) ABG pCO2 (35-45) mmHg ABG pO2 (83-108) mmHg ABG Total CO2 (19-24) mmol/L ABG O2 Saturation (94-97) % Chloride (98-107) mmol/L BUN (9-20) mg/dL Glucose (74-99) mg/dL POC Glucose (mg/dL) 142 H 137 H 129 H (75-99) mg/dL Calcium (8.4-10.2) mg/dL Magnesium (1.6-2.3) mg/dL Microbiology - Last 24 Hours (Table) 05/25/17 18:20 Anaerobic Culture - Final Pericardial Fluid 05/26/17 09:47 Blood Culture - Preliminary Blood No Growth after 72 hours 05/26/17 09:47 Blood Culture - Preliminary Blood No Growth after 72 hours 05/27/17 11:50 Gram Stain - Final Bronchial Washings - Random Bronchial Washings Culture - Final Rachel albicans 05/28/17 12:55 Gram Stain - Preliminary Pleural Fluid Body Fluid Culture - Preliminary 05/27/17 11:50 Acid Fast Bacilli Smear - Final Bronchial Washings - Random Acid Fast Bacilli Culture - Preliminary Assessment and Plan Plan: ASSESSMENT Septic shock Acute hypoxic respiratory failure secondary to ARDS Pneumonia right upper lobe ST elevation [place] status post stenting of LAD Pericardial effusion Alcohol withdrawal delirium tremens Chronic liver disease Chronic alcohol abuse Chronic nicotine dependence PLAN Patient has been intubated in the ICU this morning. He is sedated on propofol. . Patient had pericardiocentesis with 380 mL drained initially , 230 mL of fluid darined next day, 125 ml yesterday and 85 ml today.. Pericardial fluid growing Streptococcus. He has been started on Rocephin. Patient had thoracentesis done yesterday with 400 mL of fluid drained and a chest tube was placed - pleural fluid cultures no growth until now.Continue with GI DVT prophylaxis. Further recommendations to follow depending on the progress of the patient. Overall prognosis guarded.
[2017-05-30] MEDS: INSULIN LISPRO (humaLOG) 300 UNIT/3 ML VIAL SQ SCH ×5 (00:57→20:22)
[2017-05-30 00:59] LABS: Glucose,Whole Blood 158 mg/dL (75-99)
[2017-05-30 05:22] LABS: ABG Base Excess 2.4 mmol/L; ABG HCO3 26 mmol/L (21-25); ABG PCO2 34 mmHg (35-45); ABG PH 7.49 (7.35-7.45); ABG PO2 85 mmHg (83-108); ABG TCO2 27 mmol/L (19-24)
[2017-05-30 05:32] LABS: Anion Gap 8 mmol/L; Blood Urea Nitrogen 23 mg/dL (9-20); Calcium 7.7 mg/dL (8.4-10.2); Carbon Dioxide 27 mmol/L (22-30); Chloride 113 mmol/L (98-107); Glucose 140 mg/dL (74-99); Magnesium 2.6 mg/dL (1.6-2.3); Non-African American GFR(MDRD) >60 (>60 ml/min/1.73 sqM); Phosphorous 3.2 mg/dL (2.5-4.5); Potassium 3.6 mmol/L (3.5-5.1); Sodium 148 mmol/L (137-145)
[2017-05-30 05:38] LABS: Basophils # (A) 0.1 k/uL (0-0.2); Basophils % (A) 0 %; CH 30.8; Eosinophils # (A) 0.1 k/uL (0-0.7); Eosinophils % (A) 1 %; HCT 42.2 % (39.0-53.0); HDW 2.59; HGB 13.8 gm/dL (13.0-17.5); Luc # (Auto) 0.24; Luc % (Auto) 2; Lymphocytes # (A) 0.7 k/uL (1.0-4.8); Lymphocytes % (A) 6 %; MCH 31.6 pg (25.0-35.0); MCHC 32.7 g/dL (31.0-37.0); MCV 96.7 fL (80.0-100.0); Mean Platelet Volume 7.5; Monocytes # (A) 0.5 k/uL (0-1.0); Monocytes % (A) 4 %; Neutrophils # (A) 10.5 k/uL (1.3-7.7); Neutrophils % (A) 87 %; RBC 4.36 m/uL (4.30-5.90); RDW 13.1 % (11.5-15.5); WBC (Perox) 12.12
[2017-05-30 06:52] LABS: Glucose,Whole Blood 137 mg/dL (75-99)
[2017-05-30] MEDS: PROPOFOL 1,000 MG/100 ML VIAL IV SCH (07:24)
[2017-05-30] MEDS: IPRATROPIUM-ALBUTEROL 3 ML NEB INHALATION SCH ×5 (07:36→19:28)
--- NOTE | 2017-05-30 07:52 | P.PN ---
Subjective Principal diagnosis: Large pericardial effusion with tamponade physiology with cultures growing Streptococcus pneumoniae, acute ST elevation myocardial infarction involving the apical-lateral wall of the left ventricle, history of alcohol abuse with active delirium tremens on CIWA protocol, history of chronic nicotine dependence , and chronic obstructive pulmonary disease. Acute hypoxic respiratory failure with development of diffuse pulmonary infiltrates, possible ARDS, requiring mechanical ventilation. POD #2 bronchoscopy with alveolar lavage. Pleural effusion, POD #2 right pleural chest tube placement POD #4 bedside echo guided pericardiocentesis and insertion of pericardial drain POD #4 left heart catheterization, coronary angiogram with placement of stent to his left anterior descending artery by Dr. Radha Gonzales. Patient is currently sedated on mechanical ventilation. He does wake up and move all 4 extremities as well as follow commands during sedation holiday. Objective - Vital Signs Vital signs: Vital Signs Temp 100.1 F H 05/30/17 04:00 Pulse 107 H 05/30/17 07:36 Resp 24 05/30/17 07:00 BP 111/70 05/27/17 18:00 Pulse Ox 98 05/30/17 07:00 Intake & Output 05/29/17 05/30/17 05/30/17 18:59 06:59 18:59 Intake Total 1030 505.000 0.243 Output Total 1020 720 60 Balance 10 -215.000 -59.757 Weight 98.6 kg 97.9 kg Intake: IV 250 Sodium Chloride 0.9% 1, 150 000 ml @ 50 mls/hr IV . Q20H [facility] Rx#:[id number] cefTRIAXone 2,000 mg In 100 Sodium Chloride 0.9% 100 ml @ 100 mls/hr IVPB Q24HR [facility] Rx#:[id number] Intake, IV Titration 100 100.000 0.243 Amount Propofol 1,000 mg In 100 100 100.000 0.243 ml @ Titrate IV .Q0M [facility] Rx#:[id number] Tube Feeding 560 315 Other 120 90 Output: Chest Tube Drainage 30 10 Chest Tube Right 30 10 Posterior Chest Drainage 85 Anterior Medial Chest 85 Urine 905 710 60 Other: Voiding Method Indwelling Catheter Indwelling Catheter # Bowel Movements 1 ABP, PAP, CO, CI - Last Documented Arterial Blood Pressure 119/55 - Constitutional General appearance: Present: no acute distress - Respiratory Details: Lungs sounds coarse bilaterally. Respirations even, nonlabored on mechanical ventilation. Current settings AC mode, FiO2 40%, tidal volume 500, respiratory rate 24, PEEP 5. Right pleural chest tube to -20 cm wall suction, 10 mL drainage overnight, 20 mL last 24 hours. - Cardiovascular Details: S1, S2 present. Tachycardia rate, regular rhythm, sinus tach on telemetry. Mediastinal pericardial drain present, 75 mL straw-colored fluid withdrawn this morning. - Gastrointestinal Gastrointestinal Comment(s): Abdomen soft, nontender, nondistended. Active bowel sounds 4 quadrants. OG tube present, receiving tube feedings at 35 mL/h. Positive bowel movement this morning. - Genitourinary Genitourinary Comment(s): Merino present draining clear, yellow urine. Output 55-85 mL/h. - Musculoskeletal Musculoskeletal: Present: strength equal bilaterally - Psychiatric Psychiatric Comment(s): Currently on sedation holiday, does open eyes and follows commands. - Allied health notes Allied health notes reviewed: nursing - Labs CBC & Chem 7: 05/30/17 05:00 05/30/17 05:00 Labs: Abnormal Lab Results - Last 24 Hours (Table) 05/29/17 05/29/17 05/29/17 Range/Units 11:07 12:03 18:06 WBC (3.8-10.6) k/uL Neutrophils # (1.3-7.7) k/uL Lymphocytes # (1.0-4.8) k/uL ABG pH 7.46 H (7.35-7.45) ABG pCO2 34 L (35-45) mmHg ABG HCO3 (21-25) mmol/L ABG Total CO2 25 H (19-24) mmol/L ABG O2 Saturation 98.5 H (94-97) % Sodium (137-145) mmol/L Chloride (98-107) mmol/L BUN (9-20) mg/dL Creatinine (0.66-1.25) mg/dL Glucose (74-99) mg/dL POC Glucose (mg/dL) 142 H 137 H (75-99) mg/dL Calcium (8.4-10.2) mg/dL Magnesium (1.6-2.3) mg/dL 05/29/17 05/30/17 05/30/17 Range/Units 21:04 00:55 05:00 WBC 12.0 H (3.8-10.6) k/uL Neutrophils # 10.5 H (1.3-7.7) k/uL Lymphocytes # 0.7 L (1.0-4.8) k/uL ABG pH (7.35-7.45) ABG pCO2 (35-45) mmHg ABG HCO3 (21-25) mmol/L ABG Total CO2 (19-24) mmol/L ABG O2 Saturation (94-97) % Sodium (137-145) mmol/L Chloride (98-107) mmol/L BUN (9-20) mg/dL Creatinine (0.66-1.25) mg/dL Glucose (74-99) mg/dL POC Glucose (mg/dL) 129 H 158 H (75-99) mg/dL Calcium (8.4-10.2) mg/dL Magnesium (1.6-2.3) mg/dL 05/30/17 05/30/17 05/30/17 Range/Units 05:00 05:16 06:50 WBC (3.8-10.6) k/uL Neutrophils # (1.3-7.7) k/uL Lymphocytes # (1.0-4.8) k/uL ABG pH 7.49 H (7.35-7.45) ABG pCO2 34 L (35-45) mmHg ABG HCO3 26 H (21-25) mmol/L ABG Total CO2 27 H (19-24) mmol/L ABG O2 Saturation (94-97) % Sodium 148 H (137-145) mmol/L Chloride 113 H (98-107) mmol/L BUN 23 H (9-20) mg/dL Creatinine 0.61 L (0.66-1.25) mg/dL Glucose 140 H (74-99) mg/dL POC Glucose (mg/dL) 137 H (75-99) mg/dL Calcium 7.7 L (8.4-10.2) mg/dL Magnesium 2.6 H (1.6-2.3) mg/dL Microbiology - Last 24 Hours (Table) 05/25/17 18:20 Anaerobic Culture - Final Pericardial Fluid 05/26/17 09:47 Blood Culture - Preliminary Blood No Growth after 72 hours 05/26/17 09:47 Blood Culture - Preliminary Blood No Growth after 72 hours 05/27/17 11:50 Gram Stain - Final Bronchial Washings - Random Bronchial Washings Culture - Final Rachel albicans 05/28/17 12:55 Gram Stain - Preliminary Pleural Fluid Body Fluid Culture - Preliminary - Imaging and Cardiology Chest x-ray: image reviewed Assessment and Plan (1) COPD (chronic obstructive pulmonary disease) Status: Acute (2) Nicotine dependence Status: Acute (3) Alcoholism Status: Acute (4) Pericardial effusion Status: Acute (5) ST elevation myocardial infarction (STEMI) Status: Acute (6) Acute hypoxemic respiratory failure Status: Acute Plan: 1. Will drain pericardial fluid daily until removal. 2. Wean O2, ventilator management per pulmonology services. Will monitor chest tube output. 3. Continue antibiotics per infectious disease recommendations. 4. Continue aspirin, Lipitor, Plavix, beta ira per cardiology services. 5. GI/DVT prophylaxis. 6. Daily labs, x-rays. 7. More recommendations patient progresses. Time with Patient: Greater than 30
[2017-05-30] MEDS ORDERED: Potassium Replacement Protocol 1 EACH MISC MISCELLANE PRN (08:06)
[2017-05-30] MEDS ORDERED: POTASSIUM CHLORIDE 20 MEQ in WATER FOR INJECTION 1 100ML.BAG IVPB ONE (09:00)
[2017-05-30] MEDS: cefTRIAXone 2,000 MG in SODIUM CHLORIDE 0.9% 100 ML IVPB SCH (09:04)
[2017-05-30] MEDS: METOPROLOL TARTRATE 25 MG TAB PO SCH ×3 (09:04→21:10)
[2017-05-30] MEDS: ENOXAPARIN 40 MG/0.4 ML SYRINGE SQ SCH (09:04)
[2017-05-30] MEDS: CLOPIDOGREL 75 MG TAB PO SCH (09:04)
[2017-05-30] MEDS: ATORVASTATIN 40 MG TAB PO SCH (09:04)
[2017-05-30] MEDS: ESOMEPRAZOLE 20 MG in SODIUM CHLORIDE 0.9% 50 ML IVPB SCH (09:04)
[2017-05-30] MEDS ORDERED: ESOMEPRAZOLE 40 MG VIAL ONE (09:04)
[2017-05-30] MEDS: ASPIRIN 81 MG CHEW PO SCH (09:04)
[2017-05-30] MEDS: CHLORHEXIDINE GLUCONATE 15 ML CUP MUCOUS MEM SCH (09:04)
--- NOTE | 2017-05-30 09:18 | XR ---
EXAMINATION TYPE: XR chest 1V portable DATE OF EXAM: 05/30/2017 COMPARISON: 05/29/2017 INDICATION: Tube placement, difficulty breathing TECHNIQUE: Single frontal view of the chest is obtained. FINDINGS: The heart size is upper limits of normal for size. The pulmonary vasculature is normal. Left lower lobe retrocardiac infiltrate appears to be present in developing from previous exam. Corre late for atelectasis. Pneumonia should be considered. There is mild increased lung markings in the pe riphery of the right midlung. An endotracheal tube remains present slightly more distal within the trachea, 3.2 cm above the vitaly . Left central venous catheter is present with the tip in the superior vena cava region. Nasogastric tube transverses the thorax. A right lung base catheter is present. No pneumothorax is evident. IMPRESSION: 1. Developing left lower lobe infiltrate. Correlate for atelectasis or developing pneumonia. 2. Lines and catheters discussed above.
[2017-05-30 12:11] LABS: Glucose,Whole Blood 118 mg/dL (75-99)
--- NOTE | 2017-05-30 13:37 | P.PN ---
Subjective 52-year-old gentleman, known history of alcoholism, presented to the hospital because of increased chest pain. He was found to have ST segment elevation myocardial infarction. The patient was taken to the [facility] on an emergent basis and he had stents placed into his LAD for a 70% LAD lesion. He was also found to have a large pericardial effusion and leukocytosis. He was seen by surgery and he underwent a bedside pericardiocentesis and total of 380 mL of fluid was drained from the pericardial space. Initial cultures are growing up hemolytic strep and the patient is or the being covered with a combination of Rocephin and vancomycin. Note that his initial chest x-ray on admission showed a right upper lobe consolidation and subsequent x-ray showed diffuse lateral pulmonary infiltrates typical of an underlying ARDS. The patient also went into delirium tremens. Overnight she had become quite a bit agitated and he had required a total of 8 mg of Ativan throughout the night. This morning, the patient is lethargic, and 2. restraints, confused and sometimes agitated. He is on a BiPAP at a pressure of 12/5 cm of water with an FiO2 of 100%. Earlier he was on a percent and he had to be brought up to 100% to maintain a saturation above 90%. He has good pulses in all 4 extremities. He is producing approximately 50 mL an hour. He is on normal saline at the rate of 75 mL an hour. White cell count remains elevated at 28.6. He is on no pressors for now. No significant electrode abnormalities. No acidosis. Echocardiogram that was done earlier showed a preserved LV function. The patient has a pericardial tube in place and total amount of output that was drained this morning is around 125, brownish to yellowish pericardial fluid. Note that the fluid analysis was done earlier showed elevated LDH and protein. White cell count is also elevated at 44,000 with 92% on a nuclear white cells. On 05/28/2017 the patient remains intubated on a mechanical ventilator. He is sedated with Diprivan and is calm and comfortable. Spiked a high rate of the prevent, the patient is still easily arousable. Hemodynamically stable on no pressors. He remains on a mechanical ventilator on assist control mode at the rate of 24, tidal volume 500, FiO2 of 50% and a PEEP of 8. The blood gases from this morning showed a pH of 7.42 with a pCO2 of 36 and pO2 of 69. I reviewed the chest x-ray from today that shows no interval change and there is diffuse breath and pulmonary infiltrates and ET tube is in a good location. The CAT scan of the chest that was done yesterday showed development of a loculated pleural effusion on the right more so a large pocket sitting in the posterior aspect of the right hemithorax which I think it's accessible for percutaneous drainage and for that reason I discussed this case with interventional radiology and will going to proceed with this procedure despite the fact that the patient on a combination of aspirin and Plavix. I think the benefits of this procedure will outweigh the risk. Meanwhile a bronchoscopy and the bronchioloalveolar lavage was done yesterday and the cultures are all negative thus far. The patient's pericardial effusion culture showed strep pneumonia which is sensitive to all antibiotics and the patient complications on a combination of vancomycin and Rocephin. Vancomycin may be ultimately discontinued and this will be discussed further with infectious disease. He will be started on tube feeds today. He is otherwise doing well and there has been no other issues over the past 24 hours. On 05/29/2017 the patient is being seen in the follow-up. The patient remains intubated on a mechanical ventilator and sedated and calm and comfortable. As mentioned earlier, there was a concern of a empyema. Based on that I talked interventional radiology and were able to drain the loculated pleural fluid on the right. The fluid was nonpurulent. The white cell count within the fluid was nonelevated and the cultures still pending for now. The procedure was not the bedside successfully a total of 600 mL of fluid was aspirated from the right lung. At this point in time the right-sided chest tube is connected to Pleur-evac and is not draining actively. The chest x-ray however shows marked improvement in the pneumonia and in the loculated pleural fluid that was seen on the right. ET tube is sitting high in the trachea. The patient is an assist -control mode at the rate of 24, tidal volume of 500, FiO2 of 50% and a PEEP of 8. Morning blood gases showed a pH of 7.41 with a pCO2 of 38 and pO2 of 152 and there has been marked improvement in his oxygenation. The only positive cultures from his pericardial fluid which is strep pneumo and the patient on high-dose Rocephin. Vancomycin was discontinued by infectious disease as the strep pneumo has been sensitive. He was dynamically stable. Tolerating his tube feeds. Was given a sedation holiday this morning and he was able to wake up and follow commands appropriately. The pericardial tube is not draining at this point. On 05/30/2017 I'm seeing this patient in follow-up. The patient is doing well. I reviewed the chest x-ray and there is some residual infiltration of however they x-ray findings have essentially improved and the patient is improving in terms of his pneumonia. The right-sided pleural effusion was also drained percutaneously with a smaller chest tube by interventional radiology. The fluid cultures of been all negative. The blood culture been negative. The pericardial effusion was positive for Streptococcus pneumonia. The patient is on IV Rocephin 2 g every 24 hours. The patient has a pericardial catheter in place and yesterday the drainage was only 20-30 mL, none for today. This morning, the patient was taken off sedation. He woke up appropriately. Unable to complete the. He has breathing trial as the patient was becoming more and more agitated and anxious and his blood pressure was fluctuating and he was becoming tachypneic. At that point I noted the patient had adequate strength an adequate gag and cough reflex. He is at which her breathing index was also reasonable. At that point I decide to extubate this patient without giving him is participating trial. He extubated successfully and currently is on 5 L oxygen by nasal cannula. This was subsequently weaned down to 3 L. Hemodynamically stable. No chest pain. No other significant issues overnight. The patient is somewhat lethargic over he is still recovering from his underlying sedation. No tremors. No agitation. No signs of delirium tremens at this point. Objective - Vital Signs Vital signs: Vital Signs Temp 100.6 F H 05/30/17 08:00 Pulse 104 H 05/30/17 12:07 Resp 39 H 05/30/17 11:00 BP 111/70 05/27/17 18:00 Pulse Ox 96 05/30/17 11:00 Intake & Output 05/29/17 05/30/17 05/30/17 18:59 06:59 18:59 Intake Total 1030 505.000 285.243 Output Total 1020 720 265 Balance 10 -215.000 20.243 Weight 98.6 kg 97.9 kg 97.9 kg Intake: IV 250 100 Sodium Chloride 0.9% 1, 150 000 ml @ 50 mls/hr IV . Q20H [facility] Rx#:[id number] cefTRIAXone 2,000 mg In 100 100 Sodium Chloride 0.9% 100 ml @ 100 mls/hr IVPB Q24HR [facility] Rx#:[id number] Intake, IV Titration 100 100.000 150.243 Amount Esomeprazole 20 mg In 50 Sodium Chloride 0.9% 50 ml @ 100 mls/hr IVPB DAILY [facility] Rx#:[id number] Potassium Chloride 20 meq 100 In Water For Injection 1 100ml.bag @ 50 mls/hr IVPB ONCE ONE Rx#: [id number] Propofol 1,000 mg In 100 100 100.000 0.243 ml @ Titrate IV .Q0M [facility] Rx#:[id number] Tube Feeding 560 315 35 Other 120 90 Output: Chest Tube Drainage 30 10 75 Chest Tube Right 30 10 75 Posterior Chest Drainage 85 Anterior Medial Chest 85 Urine 905 710 190 Other: Voiding Method Indwelling Catheter Indwelling Catheter Indwelling Catheter # Bowel Movements 1 1 ABP, PAP, CO, CI - Last Documented Arterial Blood Pressure 139/74 - Exam T Ipatient is a bit apprehensive and lethargic and sleepy as he is still recovering from his underlying sedation. No tremors. Awake. Opens up his eyes. Follows simple commands. Moves all 4 extremities without any limitation..Neck was supple and without jugular venous distension, thyromegaly, or carotid bruits. Carotids were easily palpable bilaterally. There was no adenopathy. Orogastric and oral tracheal tube are both in place.Head exam was generally normal. There was no scleral icterus or corneal arcus. Mucous membranes were moist. Lungs sounds are diminished bilaterally. Breath sounds are equal and symmetrical however. No wheezes. No significant orotracheal secretions. The right-sided chest tube is still in place. This is connected to a Pleur-evac. Heart sounds are regular, positive S1-S2 and there is a friction rub can be appreciated over the anterior chest wall. The pericardial tube, a triple lumen catheter which has been inserted substernally.Abdominal exam revealed normal bowel sounds. The abdomen was soft, non-tender, and without masses, organomegaly, or appreciable enlargement of the abdominal aorta.Examination of the extremities revealed easily palpable radial, femoral and pedal pulses. There was no cyanosis, clubbing or edema. Neurologically awake and alert and moving all 4 extremities to no facial asymmetry. - Labs CBC & Chem 7: 05/30/17 05:00 05/30/17 05:00 Labs: Abnormal Lab Results - Last 24 Hours (Table) 05/29/17 05/29/17 05/30/17 Range/Units 18:06 21:04 00:55 WBC (3.8-10.6) k/uL Neutrophils # (1.3-7.7) k/uL Lymphocytes # (1.0-4.8) k/uL ABG pH (7.35-7.45) ABG pCO2 (35-45) mmHg ABG HCO3 (21-25) mmol/L ABG Total CO2 (19-24) mmol/L Sodium (137-145) mmol/L Chloride (98-107) mmol/L BUN (9-20) mg/dL Creatinine (0.66-1.25) mg/dL Glucose (74-99) mg/dL POC Glucose (mg/dL) 137 H 129 H 158 H (75-99) mg/dL Calcium (8.4-10.2) mg/dL Magnesium (1.6-2.3) mg/dL 05/30/17 05/30/17 05/30/17 Range/Units 05:00 05:00 05:16 WBC 12.0 H (3.8-10.6) k/uL Neutrophils # 10.5 H (1.3-7.7) k/uL Lymphocytes # 0.7 L (1.0-4.8) k/uL ABG pH 7.49 H (7.35-7.45) ABG pCO2 34 L (35-45) mmHg ABG HCO3 26 H (21-25) mmol/L ABG Total CO2 27 H (19-24) mmol/L Sodium 148 H (137-145) mmol/L Chloride 113 H (98-107) mmol/L BUN 23 H (9-20) mg/dL Creatinine 0.61 L (0.66-1.25) mg/dL Glucose 140 H (74-99) mg/dL POC Glucose (mg/dL) (75-99) mg/dL Calcium 7.7 L (8.4-10.2) mg/dL Magnesium 2.6 H (1.6-2.3) mg/dL 05/30/17 05/30/17 Range/Units 06:50 12:08 WBC (3.8-10.6) k/uL Neutrophils # (1.3-7.7) k/uL Lymphocytes # (1.0-4.8) k/uL ABG pH (7.35-7.45) ABG pCO2 (35-45) mmHg ABG HCO3 (21-25) mmol/L ABG Total CO2 (19-24) mmol/L Sodium (137-145) mmol/L Chloride (98-107) mmol/L BUN (9-20) mg/dL Creatinine (0.66-1.25) mg/dL Glucose (74-99) mg/dL POC Glucose (mg/dL) 137 H 118 H (75-99) mg/dL Calcium (8.4-10.2) mg/dL Magnesium (1.6-2.3) mg/dL Microbiology - Last 24 Hours (Table) 05/26/17 09:47 Blood Culture - Preliminary Blood No Growth after 96 hours 05/26/17 09:47 Blood Culture - Preliminary Blood No Growth after 96 hours 05/28/17 12:55 Gram Stain - Preliminary Pleural Fluid Body Fluid Culture - Preliminary 05/25/17 18:20 Anaerobic Culture - Final Pericardial Fluid 05/27/17 11:50 Gram Stain - Final Bronchial Washings - Random Bronchial Washings Culture - Final Rachel albicans Assessment and Plan Plan: Assessment 1 acute hypoxic respiratory failure with development of diffuse breath and pulmonary infiltrates. CAT scan of the chest was reviewed and the findings are consistent with diffuse bilateral pneumonia with loculated right-sided pleural effusion with possibly empyema versus a complicated loculated parapneumonic fluids. A small bore chest tube was inserted to the right hemithorax and total of 600 mL the pleural fluid was aspirated. The cultures been negative at this point. While, there has been significant improvement in the pulmonary infiltration and oxygenation on today's evaluation. The patient remains intubated on a mechanical ventilator. On 05/30/2017, the patient was taken off sedation and he demonstrated adequate ability to maintain his airways patent and he had adequate neurologic function with the patient woke up and he was following commands moving all 4 extremities without any limitation. At that point the decision was to extubate this patient and this was a successful extubation. Currently is on 3 L of oxygen by nasal cannula. 2 acute STEMI status post emergent cardiac catheterization and stenting of the LAD 3 acute infectious pneumococcal pericarditis, with a pericardial effusion/ infected pericardial fluid with cultures growing strep pneumo, status post percutaneous drainage of the pericardial effusion at the bedside and the patient has a triple lumen catheter placed within the pericardium. The output from the pericardial tube is minimal at this point, essentially non 4 alcoholism 5 delirium tremens , recovered Plan We'll keep the patient in intensive care unit. We will closely monitor his neurologic function. We'll closely monitor his hemodynamics. Aspiration precautions. Watch for any signs of delirium tremens. Continue IV Rocephin. Monitor the output from the pericardial and the chest tube. Repeat chest x-ray in the morning. Physical therapy. Strengthening exercises and range of motion. We'll continue to following up this patient along with aggressive the consultants. This was a critically care evaluation was done and more than 30 minutes. Time with Patient: Greater than 30
--- NOTE | 2017-05-30 15:04 | PN ---
This gentleman has bacterial pericarditis and pneumonia. He has been extubated , hemodynamically stable, not on pressors. Making descent urine. He was doing better, but mentally he is not very ready, well oriented. He probably still is going through alcohol withdrawal-type issues. Vital signs; however, are stable. S1, S2 heard normally. Lungs reveal diminished air entry. Abdomen is soft, lower extremities reveal diminished pulses. He is still having some drainage through a pericardial tube of about 75 mL. We will continue current medications including antibiotics. Obtain echocardiogram today. Although I discussed in detail with the patient, his current condition. I am not sure how much he comprehends. MILA
[2017-05-30 19:06] LABS: Glucose,Whole Blood 189 mg/dL (75-99)
[2017-05-30] MEDS: amLODIPine 5 MG TAB PO SCH (20:21)
[2017-05-30 20:22] LABS: Glucose,Whole Blood 129 mg/dL (75-99)
--- NOTE | 2017-05-30 21:15 | P.PN ---
Subjective Principal diagnosis: Purulent pericarditis This is a 52-year-old male who presented to [facility] emergency center on May 25 due to chest pain that had been going on for 5 days and worsening. Patient was found to have ST elevation and was taken to the laboratory scientist with Dr. GRICELDA Gonzales and found to have a 60-70% lesion in the LAD and was subsequently stented. Patient also was found to have a large pericardial effusion and was started on Zosyn and Levaquin and admitted to the intensive care unit. He underwent a bedside echo guided pericardiocentesis and insertion of a pericardial drain done on May 25 with removal of 380 ML's of cloudy tannish fluid. Yesterday he had 225 mL removed in today 125 mL. Chest x -ray showed cardiomegaly, right upper lobe consolidation and bibasilar at infiltrate or atelectasis. He is also followed by Dr. Angel from pulmonary medicine and patient was on BiPAP this morning pulseox was 80% with agitation and confusion and ended up being intubated today. He has presented with a temperature of 101.1, white count of 29.7, sodium 123, blood sugar 314, lactic acid 2.7. Urinalysis was cloudy, protein 1+, blood moderate, leukocyte esterase trace, wbc's 15, clumps rare bacteria rare. Urine culture is in progress and blood cultures status received. Pericardial fluid alphahemolytic strep. Patient has history of drinking 18 beers per day and is on the CIWA protocol. Bronchoscopy was performed. Patient remains intubated sedated and mechanically ventilated. Tube feeding has started today Patient does have a chest tube now in place with decreasing amounts of drainage. Little drainage from the pericardial drain Objective - Vital Signs Vital signs: Vital Signs Temp 98.5 F 05/30/17 20:00 Pulse 105 H 05/30/17 21:00 Resp 16 05/30/17 21:00 BP 111/70 05/27/17 18:00 Pulse Ox 98 05/30/17 21:00 Intake & Output 05/30/17 05/30/17 05/31/17 06:59 18:59 06:59 Intake Total 505.000 725.243 260 Output Total 720 1265 140 Balance -215.000 -539.757 120 Weight 97.9 kg 97.9 kg Intake: IV 180 20 Sodium Chloride 0.9% 1, 80 20 000 ml @ 50 mls/hr IV . Q20H [facility] Rx#:[id number] cefTRIAXone 2,000 mg In 100 Sodium Chloride 0.9% 100 ml @ 100 mls/hr IVPB Q24HR [facility] Rx#:[id number] Intake, IV Titration 100.000 150.243 Amount Esomeprazole 20 mg In 50 Sodium Chloride 0.9% 50 ml @ 100 mls/hr IVPB DAILY [facility] Rx#:[id number] Potassium Chloride 20 meq 100 In Water For Injection 1 100ml.bag @ 50 mls/hr IVPB ONCE ONE Rx#: [id number] Propofol 1,000 mg In 100 100.000 0.243 ml @ Titrate IV .Q0M [facility] Rx#:[id number] Oral 360 240 Tube Feeding 315 35 Other 90 Output: Chest Tube Drainage 10 75 Chest Tube Right 10 75 Posterior Chest Urine 710 1190 140 Other: Voiding Method Indwelling Catheter Indwelling Catheter Indwelling Catheter # Bowel Movements 1 1 ABP, PAP, CO, CI - Last Documented Arterial Blood Pressure 148/70 - Exam Gen: This is a 52-year-old male. Patient is now extubated but is not a good historian HEENT: Head is atraumatic, normocephalic. Sclerae is anicteric. Dentition is in poor order NECK: Supple. No JVD. No lymphadenopathy. No thyromegaly. LUNGS: Diminished bilaterally with scattered crackles. Decreased breath sounds especially to the right base, chest tube is in place with improved aeration right base. HEART: Regular rate and rhythm. No murmur. pericardial tube in place. No crunch or crackle is heard 70 mL noted for drainage ABDOMEN: Soft. Bowel sounds are present. No masses. No tenderness. EXTREMITIES: No pedal edema. No calf swelling NEUROLOGICAL: The patient is extubated but remains a poor historian. But did move upper and lower extremities. Skin is without rash or visualized breakdown - Labs CBC & Chem 7: 05/30/17 05:00 05/30/17 05:00 Labs: Abnormal Lab Results - Last 24 Hours (Table) 05/30/17 05/30/17 05/30/17 Range/Units 00:55 05:00 05:00 WBC 12.0 H (3.8-10.6) k/uL Neutrophils # 10.5 H (1.3-7.7) k/uL Lymphocytes # 0.7 L (1.0-4.8) k/uL ABG pH (7.35-7.45) ABG pCO2 (35-45) mmHg ABG HCO3 (21-25) mmol/L ABG Total CO2 (19-24) mmol/L Sodium 148 H (137-145) mmol/L Chloride 113 H (98-107) mmol/L BUN 23 H (9-20) mg/dL Creatinine 0.61 L (0.66-1.25) mg/dL Glucose 140 H (74-99) mg/dL POC Glucose (mg/dL) 158 H (75-99) mg/dL Calcium 7.7 L (8.4-10.2) mg/dL Magnesium 2.6 H (1.6-2.3) mg/dL 05/30/17 05/30/17 05/30/17 Range/Units 05:16 06:50 12:08 WBC (3.8-10.6) k/uL Neutrophils # (1.3-7.7) k/uL Lymphocytes # (1.0-4.8) k/uL ABG pH 7.49 H (7.35-7.45) ABG pCO2 34 L (35-45) mmHg ABG HCO3 26 H (21-25) mmol/L ABG Total CO2 27 H (19-24) mmol/L Sodium (137-145) mmol/L Chloride (98-107) mmol/L BUN (9-20) mg/dL Creatinine (0.66-1.25) mg/dL Glucose (74-99) mg/dL POC Glucose (mg/dL) 137 H 118 H (75-99) mg/dL Calcium (8.4-10.2) mg/dL Magnesium (1.6-2.3) mg/dL 05/30/17 05/30/17 Range/Units 19:04 20:19 WBC (3.8-10.6) k/uL Neutrophils # (1.3-7.7) k/uL Lymphocytes # (1.0-4.8) k/uL ABG pH (7.35-7.45) ABG pCO2 (35-45) mmHg ABG HCO3 (21-25) mmol/L ABG Total CO2 (19-24) mmol/L Sodium (137-145) mmol/L Chloride (98-107) mmol/L BUN (9-20) mg/dL Creatinine (0.66-1.25) mg/dL Glucose (74-99) mg/dL POC Glucose (mg/dL) 189 H 129 H (75-99) mg/dL Calcium (8.4-10.2) mg/dL Magnesium (1.6-2.3) mg/dL Microbiology - Last 24 Hours (Table) 05/28/17 12:55 Anaerobic Culture - Preliminary Pleural Fluid 05/26/17 09:47 Blood Culture - Preliminary Blood No Growth after 96 hours 05/26/17 09:47 Blood Culture - Preliminary Blood No Growth after 96 hours 05/28/17 12:55 Gram Stain - Preliminary Pleural Fluid Body Fluid Culture - Preliminary 05/25/17 18:20 Anaerobic Culture - Final Pericardial Fluid Laboratory Results WBC 12.0 k/uL (3.8-10.6) H 05/30/17 05:00 RBC 4.36 m/uL (4.30-5.90) 05/30/17 05:00 Hgb 13.8 gm/dL (13.0-17.5) 05/30/17 05:00 Hct 42.2 % (39.0-53.0) 05/30/17 05:00 MCV 96.7 fL (80.0-100.0) 05/30/17 05:00 MCH 31.6 pg (25.0-35.0) 05/30/17 05:00 MCHC 32.7 g/dL (31.0-37.0) 05/30/17 05:00 RDW 13.1 % (11.5-15.5) 05/30/17 05:00 Plt Count 282 k/uL (150-450) 05/30/17 05:00 Neutrophils % 87 % 05/30/17 05:00 Neutrophils % (Manual) 54.5 % 05/26/17 05:35 Band Neutrophils % 39.0 % 05/26/17 05:35 Lymphocytes % 6 % 05/30/17 05:00 Lymphocytes % (Manual) 4.5 % 05/26/17 05:35 Monocytes % 4 % 05/30/17 05:00 Monocytes % (Manual) 1.5 % 05/26/17 05:35 Eosinophils % 1 % 05/30/17 05:00 Basophils % 0 % 05/30/17 05:00 Metamyelocytes % 0.5 % 05/26/17 05:35 Neutrophils # 10.5 k/uL (1.3-7.7) H 05/30/17 05:00 Neutrophils # (Manual) 20.4 k/uL (1.3-7.7) H 05/26/17 05:35 Lymphocytes # 0.7 k/uL (1.0-4.8) L 05/30/17 05:00 Lymphocytes # (Manual) 1.0 k/uL (1.0-4.8) 05/26/17 05:35 Monocytes # 0.5 k/uL (0-1.0) 05/30/17 05:00 Monocytes # (Manual) 0.3 k/uL (0-1.0) 05/26/17 05:35 Eosinophils # 0.1 k/uL (0-0.7) 05/30/17 05:00 Basophils # 0.1 k/uL (0-0.2) 05/30/17 05:00 Nucleated RBCs 0 /100 WBC (0-0) 05/26/17 05:35 Manual Slide Review Performed 05/25/17 15:00 Toxic Granulation Present 05/26/17 05:35 RBC Morphology Normal 05/25/17 15:00 Polychromasia Present 05/26/17 05:35 Poikilocytosis (manual Present 05/26/17 05:35 Anisocytosis (manual) Present 05/26/17 05:35 PT 12.1 sec (9.0-12.0) H 05/28/17 10:45 INR 1.2 (<1.2) H 05/28/17 10:45 APTT 25.9 sec (22.0-30.0) 05/25/17 15:00 D-Dimer 1.32 mg/L FEU (<0.60) H 05/25/17 15:00 Sample Site charlene 05/30/17 05:16 ABG pH 7.49 (7.35-7.45) H 05/30/17 05:16 ABG pCO2 34 mmHg (35-45) L 05/30/17 05:16 ABG pO2 85 mmHg (83-108) 05/30/17 05:16 ABG HCO3 26 mmol/L (21-25) H 05/30/17 05:16 ABG Total CO2 27 mmol/L (19-24) H 05/30/17 05:16 ABG O2 Saturation 97.0 % (94-97) 05/30/17 05:16 ABG Base Excess 2.4 mmol/L 05/30/17 05:16 ABG Hematocrit 48 % (34.0-46.0) H 05/25/17 16:00 FiO2 40 % 05/30/17 05:16 Sodium 148 mmol/L (137-145) H 05/30/17 05:00 Potassium 3.6 mmol/L (3.5-5.1) 05/30/17 05:00 Chloride 113 mmol/L (98-107) H 05/30/17 05:00 Carbon Dioxide 27 mmol/L (22-30) 05/30/17 05:00 Anion Gap 8 mmol/L 05/30/17 05:00 BUN 23 mg/dL (9-20) H 05/30/17 05:00 Creatinine 0.61 mg/dL (0.66-1.25) L 05/30/17 05:00 Est GFR (MDRD) Af Amer >60 (>60 ml/min/1.73 sqM) 05/30/17 05:00 Est GFR (MDRD) Non-Af >60 (>60 ml/min/1.73 sqM) 05/30/17 05:00 Glucose 140 mg/dL (74-99) H 05/30/17 05:00 POC Glucose (mg/dL) 129 mg/dL (75-99) H 05/30/17 20:19 POC Glu Core Rescuer Heide Nicole 05/30/17 20:[address] Glu mg/dL 105 mg/dL 05/25/17 15:00 Hemoglobin A1c 5.3 % (4.2-6.1) 05/25/17 15:00 Lactic Ac Sepsis Rflx Y 05/26/17 06:08 Plasma Lactic Acid Rob 2.7 mmol/L (0.7-2.0) H* 05/26/17 09:47 Calcium 7.7 mg/dL (8.4-10.2) L 05/30/17 05:00 Phosphorus 3.2 mg/dL (2.5-4.5) 05/30/17 05:00 Magnesium 2.6 mg/dL (1.6-2.3) H 05/30/17 05:00 Total Bilirubin 2.2 mg/dL (0.2-1.3) H 05/25/17 15:00 AST 117 U/L (17-59) H 05/25/17 15:00 ALT 72 U/L (21-72) 05/25/17 15:00 Alkaline Phosphatase 75 U/L (38-126) 05/25/17 15:00 Lactate Dehydrogenase 861 U/L (313-618) H 05/28/17 04:30 Total Creatine Kinase 29 U/L (55-170) L 05/25/17 15:00 CK-MB (CK-2) 0.6 ng/mL (0.0-2.4) 05/25/17 15:00 CK-MB (CK-2) Rel Index 2.1 05/25/17 15:00 Troponin I 0.030 ng/mL (0.000-0.034) 05/26/17 05:35 Total Protein 4.8 g/dL (6.3-8.2) L 05/28/17 04:30 Albumin 3.2 g/dL (3.5-5.0) L 05/25/17 15:00 Urine Color Yellow 05/26/17 05:00 Urine Appearance Cloudy (Clear) 05/26/17 05:00 Urine pH 5.5 (5.0-8.0) 05/26/17 05:00 Ur Specific [place] 1.030 (1.001-1.035) 05/26/17 05:00 Urine Protein 1+ (Negative) H 05/26/17 05:00 Urine Glucose (UA) Negative (Negative) 05/26/17 05:00 Urine Ketones Negative (Negative) 05/26/17 05:00 Urine Blood Moderate (Negative) H 05/26/17 05:00 Urine Nitrite Negative (Negative) 05/26/17 05:00 Urine Bilirubin Negative (Negative) 05/26/17 05:00 Urine Urobilinogen 2.0 mg/dL (<2.0) 05/26/17 05:00 Ur Leukocyte Esterase Trace (Negative) H 05/26/17 05:00 Urine RBC 10 /hpf (0-5) H 05/26/17 05:00 Urine WBC 15 /hpf (0-5) H 05/26/17 05:00 Urine WBC Clumps Rare /hpf (None) H 05/26/17 05:00 Ur Squamous Epith Cells 1 /hpf (0-4) 05/26/17 05:00 Amorphous Sediment Rare /hpf (None) H 05/26/17 05:00 Urine Bacteria Rare /hpf (None) H 05/26/17 05:00 Urine Mucus Rare /hpf (None) H 05/26/17 05:00 Fluid Source Pleural 05/28/17 12:55 Fluid Color Yellow 05/25/17 18:20 Fluid Appearance Hazy 05/28/17 12:55 Fluid RBC 440 /uL 05/28/17 12:55 Fluid Nucleated Cells 170 /uL 05/28/17 12:55 Fluid Polynuclear WBCs 83 % 05/28/17 12:55 Fluid Mononuclear WBCs 17 % 05/28/17 12:55 Body Fluid Glucose Source PARICA 05/25/17 18:20 Fluid Glucose <4 mg/dL 05/28/17 12:55 Body Fluid Protein Source PARICA 05/25/17 18:20 Fluid Total Protein 4300 mg/dL 05/28/17 12:55 Body Fluid LDH Source PARICA 05/25/17 18:20 Fluid LDH 3388 U/L 05/28/17 12:55 Fluid Comment 05/25/17 18:20 Vancomycin Trough 24.6 ug/mL 05/28/17 04:30 Virus Source See Below 05/27/17 11:50 Viral Test See Below 05/27/17 11:50 Virus Analysis Interp See Below 05/27/17 11:50 Blood Type O Positive 05/25/17 15:00 Blood Type Recheck No 05/25/17 15:00 Antibody Screen NEGATIVE 05/25/17 15:00 Transfuse Plasma 05/25/2017 05/25/17 15:00 Spec Expiration Date 05/28/2017 - 2300 05/25/17 15:00 Microbiology 05/28/17 12:55 Pleural Fluid Anaerobic Culture - Preliminary 05/26/17 09:47 Blood Blood Culture - Preliminary No Growth after 96 hours 05/26/17 09:47 Blood Blood Culture - Preliminary No Growth after 96 hours 05/28/17 12:55 Pleural Fluid Gram Stain - Preliminary 05/28/17 12:55 Pleural Fluid Body Fluid Culture - Preliminary 05/25/17 18:20 Pericardial Fluid Anaerobic Culture - Final 05/27/17 11:50 Bronchial Washings - Random Gram Stain - Final 05/27/17 11:50 Bronchial Washings - Random Bronchial Washings Culture - Final Rachel albicans 05/27/17 11:50 Bronchial Washings - Random Acid Fast Bacilli Smear - Final 05/27/17 11:50 Bronchial Washings - Random Acid Fast Bacilli Culture - Preliminary 05/25/17 18:20 Pericardial Fluid Gram Stain - Final 05/25/17 18:20 Pericardial Fluid Body Fluid Culture - Final Streptococcus pneumoniae 05/27/17 11:50 Bronchial Washings - Random Fungal Culture - Preliminary 05/26/17 05:00 Urine,Catheterized Urine Culture - Final 05/25/17 18:20 Pericardial Fluid Acid Fast Bacilli Smear - Final 05/25/17 18:20 Pericardial Fluid Acid Fast Bacilli Culture - Preliminary Assessment and Plan (1) Alcoholism Status: Acute (2) Acute hypoxemic respiratory failure Status: Acute (3) Purulent pericarditis Narrative/Plan: 52-year-old gentleman who has a history of alcoholism who has radiological evidence of pneumonia. It is highly likely that the pneumonia resulted in the purulent pericarditis via direct extension. alpha streptococci have been isolated. It has been noted to be Streptococcus pneumoniae that is not drug- resistant. Antibiotic therapy with Rocephin and vancomycin is being utilized at this time pending further data. Blood cultures negative so far. As noted the patient's alcohol withdrawal is being treated, and his respiratory failure hopefully respond well to antibiotic therapy, treatment of the purulent pericarditis and underlying sepsis. The extensive leukocytosis is directly related to the purulent pericarditis and pneumonia, and with this current underlying status of alcoholism is a good prognostic sign and he was able to generate a leukocytosis. Chest tube is been placed in further cultures are pending. Blood cultures negative so far. Overall there is been improvement of his status. He is now extubated and doing well off of the ventilator. He is comfortable and neurologically not agitated. Still having some drainage from the august-cardial drain. Chest tube with minimal drainage. Is showing improvement. As noted cultures have Streptococcus pneumoniae and doing well with current antibiotic therapy of Rocephin. Will need several weeks of intravenous antibiotic therapy. The significant leukocytosis is improved to 12 today. Status: Acute
[2017-05-30] MEDS: LORazepam 2 MG/ML SYRINGE IV PRN (21:34)
[2017-05-31] MEDS: LORazepam 2 MG/ML SYRINGE IV PRN ×3 (00:07→21:40)
[2017-05-31] MEDS: ENALAPRILAT 1.25 MG/ML 1 ML VIAL IVP PRN (00:41)
[2017-05-31 04:23] LABS: Basophils % (A) 0 %; CH 31.8; CHCM 32.7; Eosinophils # (A) 0.1 k/uL (0-0.7); Eosinophils % (A) 0 %; HCT 43.9 % (39.0-53.0); HGB 14.4 gm/dL (13.0-17.5); Luc # (Auto) 0.18; Luc % (Auto) 1; Lymphocytes # (A) 0.7 k/uL (1.0-4.8); Lymphocytes % (A) 5 %; MCHC 32.7 g/dL (31.0-37.0); MCV 97.8 fL (80.0-100.0); Monocytes % (A) 8 %; Neutrophils % (A) 85 %; RBC 4.49 m/uL (4.30-5.90); RDW 13.7 % (11.5-15.5); WBC (Perox) 12.44
[2017-05-31 04:33] LABS: Anion Gap 9 mmol/L; Blood Urea Nitrogen 22 mg/dL (9-20); Calcium 7.9 mg/dL (8.4-10.2); Carbon Dioxide 27 mmol/L (22-30); Chloride 111 mmol/L (98-107); Glucose 146 mg/dL (74-99); Magnesium 2.3 mg/dL (1.6-2.3); Non-African American GFR(MDRD) >60 (>60 ml/min/1.73 sqM); Phosphorous 3.3 mg/dL (2.5-4.5); Potassium 3.5 mmol/L (3.5-5.1); Sodium 147 mmol/L (137-145)
[2017-05-31] MEDS: POTASSIUM CHLORIDE ER 20 MEQ TAB.ER PO SCH ×2 (05:36→08:32)
[2017-05-31 07:13] LABS: Glucose,Whole Blood 268 mg/dL (75-99)
[2017-05-31 07:16] LABS: Glucose,Whole Blood 131 mg/dL (75-99)
--- NOTE | 2017-05-31 08:12 | XR ---
EXAMINATION TYPE: XR chest 1V portable DATE OF EXAM: 05/31/2017 COMPARISON: 05/30/2017 HISTORY: SOB, Follow Up FINDINGS: Endotracheal and NG tubes have been removed. Left IJ central venous line is unchanged in position. Ri ght basilar catheter is also stable in position. No change in bibasilar opacities. Stable appearance of the cardio-mediastinal structures at this time. Pleural effusion unchanged. IMPRESSION: 1. Essentially Stable portable chest. Removal of endotracheal and NG tubes as noted. Clinical corre lation and follow up until resolution is recommended.
[2017-05-31] MEDS: CLOPIDOGREL 75 MG TAB PO SCH (08:29)
[2017-05-31] MEDS: METOPROLOL TARTRATE 25 MG TAB PO SCH ×3 (08:29→21:41)
[2017-05-31] MEDS: ASPIRIN 81 MG CHEW PO SCH (08:29)
[2017-05-31] MEDS ORDERED: ESOMEPRAZOLE 40 MG VIAL ONE (08:30)
[2017-05-31] MEDS: INSULIN LISPRO (humaLOG) 300 UNIT/3 ML VIAL SQ SCH ×4 (08:30→21:41)
[2017-05-31] MEDS: ESOMEPRAZOLE 20 MG in SODIUM CHLORIDE 0.9% 50 ML IVPB SCH (08:31)
[2017-05-31] MEDS: ENOXAPARIN 40 MG/0.4 ML SYRINGE SQ SCH (08:31)
[2017-05-31] MEDS: cefTRIAXone 2,000 MG in SODIUM CHLORIDE 0.9% 100 ML IVPB SCH (08:32)
[2017-05-31] MEDS: ATORVASTATIN 40 MG TAB PO SCH (08:32)
[2017-05-31] MEDS: IPRATROPIUM-ALBUTEROL 3 ML NEB INHALATION SCH ×5 (09:03→20:24)
--- NOTE | 2017-05-31 11:18 | P.PN ---
<Mandie Romero - Last Filed: 05/31/17 11:12> Subjective Principal diagnosis: Large pericardial effusion with tamponade physiology with cultures growing Streptococcus pneumoniae, acute ST elevation myocardial infarction involving the apical-lateral wall of the left ventricle, history of alcohol abuse with active delirium tremens on CIWA protocol, history of chronic nicotine dependence , and chronic obstructive pulmonary disease. Acute hypoxic respiratory failure with development of diffuse pulmonary infiltrates, possible ARDS, requiring mechanical ventilation. POD #3 bronchoscopy with alveolar lavage. Pleural effusion, POD #3 right pleural chest tube placement POD #5 bedside echo guided pericardiocentesis and insertion of pericardial drain POD #5 left heart catheterization, coronary angiogram with placement of stent to his left anterior descending artery by Dr. Radha Gonzales. Patient is currently sitting up in bed in no acute distress. Was extubated yesterday. Currently quite confused. Objective - Vital Signs Vital signs: Vital Signs Temp 98 F 05/31/17 08:00 Pulse 114 H 05/31/17 09:00 Resp 38 H 05/31/17 09:00 BP 111/70 05/27/17 18:00 Pulse Ox 98 05/31/17 09:07 Intake & Output 05/30/17 05/31/17 05/31/17 18:59 06:59 18:59 Intake Total 725.243 970 140 Output Total 1265 805 225 Balance -539.757 165 -85 Weight 97.9 kg 93.1 kg 93.1 kg Intake: IV 180 130 140 Sodium Chloride 0.9% 1, 80 130 40 000 ml @ 50 mls/hr IV . Q20H [facility] Rx#:[id number] cefTRIAXone 2,000 mg In 100 100 Sodium Chloride 0.9% 100 ml @ 100 mls/hr IVPB Q24HR [facility] Rx#:[id number] Intake, IV Titration 150.243 Amount Esomeprazole 20 mg In 50 Sodium Chloride 0.9% 50 ml @ 100 mls/hr IVPB DAILY [facility] Rx#:[id number] Potassium Chloride 20 meq 100 In Water For Injection 1 100ml.bag @ 50 mls/hr IVPB ONCE ONE Rx#: [id number] Propofol 1,000 mg In 100 0.243 ml @ Titrate IV .Q0M [facility] Rx#:[id number] Oral 360 840 Tube Feeding 35 Output: Chest Tube Drainage 75 10 Chest Tube Right 75 10 Posterior Chest Urine 1190 795 225 Other: Voiding Method Indwelling Catheter Indwelling Catheter Indwelling Catheter # Bowel Movements 1 1 ABP, PAP, CO, CI - Last Documented Arterial Blood Pressure 164/80 - Constitutional General appearance: Present: cooperative, disheveled, no acute distress - Respiratory Details: Lungs sounds coarse bilaterally. Respirations even, nonlabored. Currently on 3 L nasal cannula with oxygen saturations 95%. Right pleural chest tube to -27 m wall suction. 0 output overnight, 10 mL in the last 24 hours. - Cardiovascular Details: S1, S2 present. Tachycardia rate, regular rhythm, sinus tach on telemetry. Pericardial drain present, 80 mL straw-colored fluid drained this morning. - Gastrointestinal Gastrointestinal Comment(s): Abdomen soft, nontender, nondistended. Active bowel sounds 4 quadrants. Was attempting to eat breakfast this morning. - Genitourinary Genitourinary Comment(s): Merino present draining clear, yellow urine. 50-70 mL per hour output. - Musculoskeletal Musculoskeletal: Present: strength equal bilaterally - Psychiatric Psychiatric Comment(s): Currently alert and oriented to person and place only. - Allied health notes Allied health notes reviewed: nursing - Labs CBC & Chem 7: 05/31/17 04:10 05/31/17 04:10 Labs: Abnormal Lab Results - Last 24 Hours (Table) 05/30/17 05/30/17 05/30/17 Range/Units 12:08 19:04 20:19 WBC (3.8-10.6) k/uL Neutrophils # (1.3-7.7) k/uL Lymphocytes # (1.0-4.8) k/uL Sodium (137-145) mmol/L Chloride (98-107) mmol/L BUN (9-20) mg/dL Creatinine (0.66-1.25) mg/dL Glucose (74-99) mg/dL POC Glucose (mg/dL) 118 H 189 H 129 H (75-99) mg/dL Calcium (8.4-10.2) mg/dL 05/31/17 05/31/17 05/31/17 Range/Units 04:10 04:10 07:11 WBC 13.0 H (3.8-10.6) k/uL Neutrophils # 11.0 H (1.3-7.7) k/uL Lymphocytes # 0.7 L (1.0-4.8) k/uL Sodium 147 H (137-145) mmol/L Chloride 111 H (98-107) mmol/L BUN 22 H (9-20) mg/dL Creatinine 0.50 L (0.66-1.25) mg/dL Glucose 146 H (74-99) mg/dL POC Glucose (mg/dL) 268 H (75-99) mg/dL Calcium 7.9 L (8.4-10.2) mg/dL 05/31/17 Range/Units 07:14 WBC (3.8-10.6) k/uL Neutrophils # (1.3-7.7) k/uL Lymphocytes # (1.0-4.8) k/uL Sodium (137-145) mmol/L Chloride (98-107) mmol/L BUN (9-20) mg/dL Creatinine (0.66-1.25) mg/dL Glucose (74-99) mg/dL POC Glucose (mg/dL) 131 H (75-99) mg/dL Calcium (8.4-10.2) mg/dL Microbiology - Last 24 Hours (Table) 05/28/17 12:55 Gram Stain - Preliminary Pleural Fluid Body Fluid Culture - Preliminary 05/28/17 12:55 Anaerobic Culture - Preliminary Pleural Fluid 05/26/17 09:47 Blood Culture - Preliminary Blood No Growth after 96 hours 05/26/17 09:47 Blood Culture - Preliminary Blood No Growth after 96 hours - Imaging and Cardiology Chest x-ray: image reviewed Assessment and Plan (1) COPD (chronic obstructive pulmonary disease) Status: Acute (2) Nicotine dependence Status: Acute (3) Alcoholism Status: Acute (4) Pericardial effusion Status: Acute (5) ST elevation myocardial infarction (STEMI) Status: Acute (6) Acute hypoxemic respiratory failure Status: Acute Plan: 1. Will drain pericardial fluid daily until removal. Drained 80 mL this morning. Echo ordered yesterday per Dr. Gonzales, await results. 2. Will monitor chest tube output. 3. Continue antibiotics per infectious disease recommendations. 4. Continue aspirin, Lipitor, Plavix, beta ira per cardiology services. 5. GI/DVT prophylaxis. 6. Daily labs, x-rays. 7. More recommendations to follow. Time with Patient: Greater than 30 <El Dumas - Last Filed: 05/31/17 15:48> Objective - Vital Signs Vital signs: Vital Signs Temp 99.2 F 05/31/17 12:00 Pulse 99 05/31/17 13:00 Resp 28 H 05/31/17 13:00 BP 111/70 05/27/17 18:00 Pulse Ox 96 05/31/17 13:00 Intake & Output 05/30/17 05/31/17 05/31/17 18:59 06:59 18:59 Intake Total 725.243 970 160 Output Total 1265 805 350 Balance -539.757 165 -190 Weight 97.9 kg 93.1 kg 93.1 kg Intake: IV 180 130 160 Sodium Chloride 0.9% 1, 80 130 60 000 ml @ 50 mls/hr IV . Q20H [facility] Rx#:[id number] cefTRIAXone 2,000 mg In 100 100 Sodium Chloride 0.9% 100 ml @ 100 mls/hr IVPB Q24HR [facility] Rx#:[id number] Intake, IV Titration 150.243 Amount Esomeprazole 20 mg In 50 Sodium Chloride 0.9% 50 ml @ 100 mls/hr IVPB DAILY [facility] Rx#:[id number] Potassium Chloride 20 meq 100 In Water For Injection 1 100ml.bag @ 50 mls/hr IVPB ONCE ONE Rx#: [id number] Propofol 1,000 mg In 100 0.243 ml @ Titrate IV .Q0M [facility] Rx#:[id number] Oral 360 840 Tube Feeding 35 Output: Chest Tube Drainage 75 10 Chest Tube Right 75 10 Posterior Chest Urine 1190 795 350 Other: Voiding Method Indwelling Catheter Indwelling Catheter Indwelling Catheter # Bowel Movements 1 1 ABP, PAP, CO, CI - Last Documented Arterial Blood Pressure 118/59 - Labs CBC & Chem 7: 05/31/17 04:10 05/31/17 04:10 Labs: Abnormal Lab Results - Last 24 Hours (Table) 05/30/17 05/30/17 05/31/17 Range/Units 19:04 20:19 04:10 WBC 13.0 H (3.8-10.6) k/uL Neutrophils # 11.0 H (1.3-7.7) k/uL Lymphocytes # 0.7 L (1.0-4.8) k/uL Sodium (137-145) mmol/L Chloride (98-107) mmol/L BUN (9-20) mg/dL Creatinine (0.66-1.25) mg/dL Glucose (74-99) mg/dL POC Glucose (mg/dL) 189 H 129 H (75-99) mg/dL Calcium (8.4-10.2) mg/dL 05/31/17 05/31/17 05/31/17 Range/Units 04:10 07:11 07:14 WBC (3.8-10.6) k/uL Neutrophils # (1.3-7.7) k/uL Lymphocytes # (1.0-4.8) k/uL Sodium 147 H (137-145) mmol/L Chloride 111 H (98-107) mmol/L BUN 22 H (9-20) mg/dL Creatinine 0.50 L (0.66-1.25) mg/dL Glucose 146 H (74-99) mg/dL POC Glucose (mg/dL) 268 H 131 H (75-99) mg/dL Calcium 7.9 L (8.4-10.2) mg/dL 05/31/17 05/31/17 Range/Units 11:17 12:13 WBC (3.8-10.6) k/uL Neutrophils # (1.3-7.7) k/uL Lymphocytes # (1.0-4.8) k/uL Sodium (137-145) mmol/L Chloride (98-107) mmol/L BUN (9-20) mg/dL Creatinine (0.66-1.25) mg/dL Glucose (74-99) mg/dL POC Glucose (mg/dL) 120 H 150 H (75-99) mg/dL Calcium (8.4-10.2) mg/dL Microbiology - Last 24 Hours (Table) 05/26/17 09:47 Blood Culture - Preliminary Blood No Growth after 120 hours 05/26/17 09:47 Blood Culture - Preliminary Blood No Growth after 120 hours 05/28/17 12:55 Gram Stain - Preliminary Pleural Fluid Body Fluid Culture - Preliminary 05/28/17 12:55 Anaerobic Culture - Preliminary Pleural Fluid Assessment and Plan Plan: I agree with the above assessment and plan. His echocardiogram performed yesterday still reveals a small stable pericardial effusion. He remains hemodynamically stable on nasal cannula. We will continue to drain his pericardial drain on a daily basis. Antibiotics as directed by infectious disease.
[2017-05-31 11:19] LABS: Glucose,Whole Blood 120 mg/dL (75-99)
[2017-05-31 12:15] LABS: Glucose,Whole Blood 150 mg/dL (75-99)
--- NOTE | 2017-05-31 12:30 | P.PN ---
Subjective 52-year-old gentleman, known history of alcoholism, presented to the hospital because of increased chest pain. He was found to have ST segment elevation myocardial infarction. The patient was taken to the [facility] on an emergent basis and he had stents placed into his LAD for a 70% LAD lesion. He was also found to have a large pericardial effusion and leukocytosis. He was seen by surgery and he underwent a bedside pericardiocentesis and total of 380 mL of fluid was drained from the pericardial space. Initial cultures are growing up hemolytic strep and the patient is or the being covered with a combination of Rocephin and vancomycin. Note that his initial chest x-ray on admission showed a right upper lobe consolidation and subsequent x-ray showed diffuse lateral pulmonary infiltrates typical of an underlying ARDS. The patient also went into delirium tremens. Overnight she had become quite a bit agitated and he had required a total of 8 mg of Ativan throughout the night. This morning, the patient is lethargic, and 2. restraints, confused and sometimes agitated. He is on a BiPAP at a pressure of 12/5 cm of water with an FiO2 of 100%. Earlier he was on a percent and he had to be brought up to 100% to maintain a saturation above 90%. He has good pulses in all 4 extremities. He is producing approximately 50 mL an hour. He is on normal saline at the rate of 75 mL an hour. White cell count remains elevated at 28.6. He is on no pressors for now. No significant electrode abnormalities. No acidosis. Echocardiogram that was done earlier showed a preserved LV function. The patient has a pericardial tube in place and total amount of output that was drained this morning is around 125, brownish to yellowish pericardial fluid. Note that the fluid analysis was done earlier showed elevated LDH and protein. White cell count is also elevated at 44,000 with 92% on a nuclear white cells. On 05/28/2017 the patient remains intubated on a mechanical ventilator. He is sedated with Diprivan and is calm and comfortable. Spiked a high rate of the prevent, the patient is still easily arousable. Hemodynamically stable on no pressors. He remains on a mechanical ventilator on assist control mode at the rate of 24, tidal volume 500, FiO2 of 50% and a PEEP of 8. The blood gases from this morning showed a pH of 7.42 with a pCO2 of 36 and pO2 of 69. I reviewed the chest x-ray from today that shows no interval change and there is diffuse breath and pulmonary infiltrates and ET tube is in a good location. The CAT scan of the chest that was done yesterday showed development of a loculated pleural effusion on the right more so a large pocket sitting in the posterior aspect of the right hemithorax which I think it's accessible for percutaneous drainage and for that reason I discussed this case with interventional radiology and will going to proceed with this procedure despite the fact that the patient on a combination of aspirin and Plavix. I think the benefits of this procedure will outweigh the risk. Meanwhile a bronchoscopy and the bronchioloalveolar lavage was done yesterday and the cultures are all negative thus far. The patient's pericardial effusion culture showed strep pneumonia which is sensitive to all antibiotics and the patient complications on a combination of vancomycin and Rocephin. Vancomycin may be ultimately discontinued and this will be discussed further with infectious disease. He will be started on tube feeds today. He is otherwise doing well and there has been no other issues over the past 24 hours. On 05/29/2017 the patient is being seen in the follow-up. The patient remains intubated on a mechanical ventilator and sedated and calm and comfortable. As mentioned earlier, there was a concern of a empyema. Based on that I talked interventional radiology and were able to drain the loculated pleural fluid on the right. The fluid was nonpurulent. The white cell count within the fluid was nonelevated and the cultures still pending for now. The procedure was not the bedside successfully a total of 600 mL of fluid was aspirated from the right lung. At this point in time the right-sided chest tube is connected to Pleur-evac and is not draining actively. The chest x-ray however shows marked improvement in the pneumonia and in the loculated pleural fluid that was seen on the right. ET tube is sitting high in the trachea. The patient is an assist -control mode at the rate of 24, tidal volume of 500, FiO2 of 50% and a PEEP of 8. Morning blood gases showed a pH of 7.41 with a pCO2 of 38 and pO2 of 152 and there has been marked improvement in his oxygenation. The only positive cultures from his pericardial fluid which is strep pneumo and the patient on high-dose Rocephin. Vancomycin was discontinued by infectious disease as the strep pneumo has been sensitive. He was dynamically stable. Tolerating his tube feeds. Was given a sedation holiday this morning and he was able to wake up and follow commands appropriately. The pericardial tube is not draining at this point. On 05/30/2017 I'm seeing this patient in follow-up. The patient is doing well. I reviewed the chest x-ray and there is some residual infiltration of however they x-ray findings have essentially improved and the patient is improving in terms of his pneumonia. The right-sided pleural effusion was also drained percutaneously with a smaller chest tube by interventional radiology. The fluid cultures of been all negative. The blood culture been negative. The pericardial effusion was positive for Streptococcus pneumonia. The patient is on IV Rocephin 2 g every 24 hours. The patient has a pericardial catheter in place and yesterday the drainage was only 20-30 mL, none for today. This morning, the patient was taken off sedation. He woke up appropriately. Unable to complete the. He has breathing trial as the patient was becoming more and more agitated and anxious and his blood pressure was fluctuating and he was becoming tachypneic. At that point I noted the patient had adequate strength an adequate gag and cough reflex. He is at which her breathing index was also reasonable. At that point I decide to extubate this patient without giving him is participating trial. He extubated successfully and currently is on 5 L oxygen by nasal cannula. This was subsequently weaned down to 3 L. Hemodynamically stable. No chest pain. No other significant issues overnight. The patient is somewhat lethargic over he is still recovering from his underlying sedation. No tremors. No agitation. No signs of delirium tremens at this point. On 05/31/2017 I'm seeing this patient in follow-up. As mentioned earlier, the patient was extubated yesterday without any major difficulties. At the later stage the patient started having symptoms of delirium. He was on and off confused throughout the night and he sees a total of 6 mg of IV Ativan for delirium tremens. This morning, he is not oriented to time and place. His multiple of her extremities. No headache. The antibiotics are still unchanged and the patient is on high dose Rocephin regarding pneumococcal pneumonia and acute pneumococcal pericarditis. The pericardial catheter has drained 80 mL yesterday and there is no active drainage from the right-sided chest tube. Chest x-ray still showing breath and pulmonary infiltrates although improved compared to the initial chest x-ray from May 28. The patient is resting comfortably in bed. No signs of respiratory distress. Active issues for now remains his altered mentation and the delirium tremens. Hemodynamically stable. Objective - Vital Signs Vital signs: Vital Signs Temp 98 F 05/31/17 08:00 Pulse 98 05/31/17 12:11 Resp 22 05/31/17 11:00 BP 111/70 05/27/17 18:00 Pulse Ox 96 05/31/17 11:00 Intake & Output 05/30/17 05/31/17 05/31/17 18:59 06:59 18:59 Intake Total 725.243 970 140 Output Total 1265 805 225 Balance -539.757 165 -85 Weight 97.9 kg 93.1 kg 93.1 kg Intake: IV 180 130 140 Sodium Chloride 0.9% 1, 80 130 40 000 ml @ 50 mls/hr IV . Q20H [facility] Rx#:[id number] cefTRIAXone 2,000 mg In 100 100 Sodium Chloride 0.9% 100 ml @ 100 mls/hr IVPB Q24HR [facility] Rx#:[id number] Intake, IV Titration 150.243 Amount Esomeprazole 20 mg In 50 Sodium Chloride 0.9% 50 ml @ 100 mls/hr IVPB DAILY [facility] Rx#:[id number] Potassium Chloride 20 meq 100 In Water For Injection 1 100ml.bag @ 50 mls/hr IVPB ONCE ONE Rx#: [id number] Propofol 1,000 mg In 100 0.243 ml @ Titrate IV .Q0M [facility] Rx#:[id number] Oral 360 840 Tube Feeding 35 Output: Chest Tube Drainage 75 10 Chest Tube Right 75 10 Posterior Chest Urine 1190 795 225 Other: Voiding Method Indwelling Catheter Indwelling Catheter Indwelling Catheter # Bowel Movements 1 1 ABP, PAP, CO, CI - Last Documented Arterial Blood Pressure 146/73 - Exam T Head exam was generally normal. There was no scleral icterus or corneal arcus. Mucous membranes were moist..Neck was supple and without jugular venous distension, thyromegaly, or carotid bruits. Carotids were easily palpable bilaterally. There was no adenopathy. Orogastric and oral tracheal tube are both in place.Head exam was generally normal. There was no scleral icterus or corneal arcus. Mucous membranes were moist. Lungs sounds are diminished bilaterally. Breath sounds are equal and symmetrical however. No wheezes. The right-sided chest tube is still in place. This is connected to a Pleur- evac. Heart sounds are regular, positive S1-S2 and there is a friction rub can be appreciated over the anterior chest wall. The pericardial tube, a triple lumen catheter which has been inserted substernally.Abdominal exam revealed normal bowel sounds. The abdomen was soft, non-tender, and without masses, organomegaly, or appreciable enlargement of the abdominal aorta.Examination of the extremities revealed easily palpable radial, femoral and pedal pulses. There was no cyanosis, clubbing or edema. Neurologically , the patient is moving all 4 extremities. Confused. At times agitated and there is a 24 hour sitter at the bedside. - Labs CBC & Chem 7: 05/31/17 04:10 05/31/17 04:10 Labs: Abnormal Lab Results - Last 24 Hours (Table) 05/30/17 05/30/17 05/31/17 Range/Units 19:04 20:19 04:10 WBC 13.0 H (3.8-10.6) k/uL Neutrophils # 11.0 H (1.3-7.7) k/uL Lymphocytes # 0.7 L (1.0-4.8) k/uL Sodium (137-145) mmol/L Chloride (98-107) mmol/L BUN (9-20) mg/dL Creatinine (0.66-1.25) mg/dL Glucose (74-99) mg/dL POC Glucose (mg/dL) 189 H 129 H (75-99) mg/dL Calcium (8.4-10.2) mg/dL 05/31/17 05/31/17 05/31/17 Range/Units 04:10 07:11 07:14 WBC (3.8-10.6) k/uL Neutrophils # (1.3-7.7) k/uL Lymphocytes # (1.0-4.8) k/uL Sodium 147 H (137-145) mmol/L Chloride 111 H (98-107) mmol/L BUN 22 H (9-20) mg/dL Creatinine 0.50 L (0.66-1.25) mg/dL Glucose 146 H (74-99) mg/dL POC Glucose (mg/dL) 268 H 131 H (75-99) mg/dL Calcium 7.9 L (8.4-10.2) mg/dL 05/31/17 05/31/17 Range/Units 11:17 12:13 WBC (3.8-10.6) k/uL Neutrophils # (1.3-7.7) k/uL Lymphocytes # (1.0-4.8) k/uL Sodium (137-145) mmol/L Chloride (98-107) mmol/L BUN (9-20) mg/dL Creatinine (0.66-1.25) mg/dL Glucose (74-99) mg/dL POC Glucose (mg/dL) 120 H 150 H (75-99) mg/dL Calcium (8.4-10.2) mg/dL Microbiology - Last 24 Hours (Table) 05/26/17 09:47 Blood Culture - Preliminary Blood No Growth after 120 hours 05/26/17 09:47 Blood Culture - Preliminary Blood No Growth after 120 hours 05/28/17 12:55 Gram Stain - Preliminary Pleural Fluid Body Fluid Culture - Preliminary 05/28/17 12:55 Anaerobic Culture - Preliminary Pleural Fluid Assessment and Plan Plan: Assessment 1 acute hypoxic respiratory failure with development of diffuse breath and pulmonary infiltrates. CAT scan of the chest was reviewed and the findings are consistent with diffuse bilateral pneumonia with loculated right-sided pleural effusion with possibly empyema versus a complicated loculated parapneumonic fluids. A small bore chest tube was inserted to the right hemithorax and total of 600 mL the pleural fluid was aspirated. The cultures been negative at this point. While, there has been significant improvement in the pulmonary infiltration and oxygenation on today's evaluation. The patient remains intubated on a mechanical ventilator. On 05/30/2017, the patient was taken off sedation and he demonstrated adequate ability to maintain his airways patent and he had adequate neurologic function with the patient woke up and he was following commands moving all 4 extremities without any limitation. At that point the decision was to extubate this patient and this was a successful extubation. Currently is on 3 L of oxygen by nasal cannula. On 05/31/2017, the patient remains extubated. A repeat CAT scan of the chest will be obtained to follow-up on the loculated pleural effusion and decided the patient may benefit from an intrapleural TPA. We'll keep the pericardial catheter in place as long as there is still on and off drainage as the patient has drained approximately 80 mL yesterday. The patient is extubated. The patient on IV Rocephin. 2 acute STEMI status post emergent cardiac catheterization and stenting of the LAD 3 acute infectious pneumococcal pericarditis, with a pericardial effusion/ infected pericardial fluid with cultures growing strep pneumo, status post percutaneous drainage of the pericardial effusion at the bedside and the patient has a triple lumen catheter placed within the pericardium. The output from the pericardial tube is minimal at this point, essentially non 4 alcoholism 5 delirium tremens , with ongoing mental status change. Patient has required a total of 6mg of Ativan since extubation to control agitation and delirium.\ Plan We'll keep the patient in intensive care unit. We'll monitor the mentation. We 'll give Ativan as needed for agitation and symptoms of the delirium tremens. Repeat CAT scan of the chest for reasons mentioned above. We'll reevaluate for any residual loculation within the right chest post pneumonia. Keep the chest tube in place for now. Keep the pericardial catheter in place. Continue antibiotics. Advance diet as tolerated. We'll continue to follow.
--- NOTE | 2017-05-31 12:46 | PN ---
Michael is a 52 year old gentleman who was admitted to the hospital with bacterial pericarditis with pleural effusion. He had a pericardial drain placed. Still quite a bit of fluid is coming out of it. He is on antibiotics. The patient is confused. On exam, heart rate is 106. Blood pressure 146/103. Respirations 18. Chest exam reveals diminished air entry at the bases. Heart exam reveals first and second heart sounds. No gallop. There is a pericardial rub. Abdomen is soft. Examination of the extremities did not reveal any edema. Peripheral pulses are felt. Labs show a creatinine of 0.5. Hemoglobin 14.4. The patient is currently on aspirin, Norvasc, Lipitor, Plavix. IV antibiotics , IV ceftriaxone. MTDD
--- NOTE | 2017-05-31 13:15 | CT ---
EXAMINATION TYPE: CT chest wo con DATE OF EXAM: 05/31/2017 COMPARISON: 05/27/2017 HISTORY: Loculated effusion CT DLP: 551.[address] of the chest was performed with lung and mediastinal window settings submitted. The la ck of contrast limits evaluation of the vascular, mediastinal and parenchymal structures including th e upper abdomen. LUNGS: Endotracheal and NG tubes have been removed. Within loculated collection right medial lung bas e there is now a drainage catheter are noted at its periphery. The size of the loculated collection i s currently 9.5 cm craniocaudal dimension by 4.6 cm transverse dimension by 6.4 cm AP dimension versu s 16.2 x 6.1 x 5.6 cm. Additional smaller loculated pleural effusion component identified adjacent to the dominant loculated collection. Tiny free flowing effusions bilaterally. Patchy airspace disease is seen throughout both lung [place] and remains essentially unchanged. The lungs are clear and free o f infiltrate. MEDIASTINUM/UCHE: Thoracic aorta is of normal caliber with limited evaluation given lack of contrast . The heart is mildly enlarged. Note is made of stable pericardial effusion. No evidence for mediast inal mass. Several greater than 1 cm lymph nodes are seen within the mediastinum with AP window lymph node measuring 13 mm in right paratracheal lymph node measuring about 14 mm. UPPER ABDOMEN: Stable since prior study. OTHER: No significant other abnormality. IMPRESSION: 1. Interval placement drainage pigtail catheter within a loculated component of right basilar effusi on or empyema with reduction in size as noted above although collection does persist. 2. Persistent scattered airspace infiltrates. 3. Stable Pericardial effusion. 4. Removal of endotracheal and NG tubes.
--- NOTE | 2017-05-31 13:22 | ECHOF ---
Referral Reason:assess LV function and pericardial effusion MEASUREMENTS -------- HEIGHT: 152.4 cm WEIGHT: 97.5 kg BP: 153/108 RAP: 5.00 mmHg RVSP: 18.74 mmHg FINDINGS -------- Sinus rhythm. 1This was a technically adequate study. Pt had Parcentesis 05/27, Limited study on 05/28, 05/29 to Reacess Pericardial Effusion. There is mild concentric left ventricular hypertrophy. Overall left ventricular systolic function is normal with, an EF between 55 - 60 %. There is a small, generalized pericardial effusion present. CONCLUSIONS -------- 1. 1This was a technically adequate study. 2. Pt had Parcentesis 05/27, Limited study on 05/28, 05/29 to Reacess Pericardial Effusion. 3. There is mild concentric left ventricular hypertrophy. 4. Overall left ventricular systolic function is normal with, an EF between 55 - 60 %. 5. There is a small, generalized pericardial effusion present. [employer] MANAGER: Tracy Heath RDCS
[2017-05-31 17:12] LABS: Glucose,Whole Blood 184 mg/dL (75-99)
[2017-05-31 21:24] LABS: Glucose,Whole Blood 120 mg/dL (75-99)
[2017-05-31] MEDS: amLODIPine 5 MG TAB PO SCH (21:40)
--- NOTE | 2017-05-31 22:17 | P.PN ---
Subjective Principal diagnosis: Purulent pericarditis This is a 52-year-old male who presented to [facility] emergency center on May 25 due to chest pain that had been going on for 5 days and worsening. Patient was found to have ST elevation and was taken to the bundle tier and labeler with Dr. GRICELDA Gonzales and found to have a 60-70% lesion in the LAD and was subsequently stented. Patient also was found to have a large pericardial effusion and was started on Zosyn and Levaquin and admitted to the intensive care unit. He underwent a bedside echo guided pericardiocentesis and insertion of a pericardial drain done on May 25 with removal of 380 ML's of cloudy tannish fluid. Yesterday he had 225 mL removed in today 125 mL. Chest x -ray showed cardiomegaly, right upper lobe consolidation and bibasilar at infiltrate or atelectasis. He is also followed by Dr. Angel from pulmonary medicine and patient was on BiPAP this morning pulseox was 80% with agitation and confusion and ended up being intubated today. He has presented with a temperature of 101.1, white count of 29.7, sodium 123, blood sugar 314, lactic acid 2.7. Urinalysis was cloudy, protein 1+, blood moderate, leukocyte esterase trace, wbc's 15, clumps rare bacteria rare. Urine culture is in progress and blood cultures status received. Pericardial fluid alphahemolytic strep. Patient has history of drinking 18 beers per day and is on the CIWA protocol. Bronchoscopy was performed. Patient does have a chest tube now in place with decreasing amounts of drainage. Little drainage from the pericardial drain patient is tolerated extubation wel quite confused is having visual hallucinations is seeing bugs. Objective - Vital Signs Vital signs: Vital Signs Temp 99 F 05/31/17 16:00 Pulse 101 H 05/31/17 20:42 Resp 30 H 05/31/17 18:00 BP 111/70 05/27/17 18:00 Pulse Ox 97 05/31/17 18:00 Intake & Output 05/31/17 05/31/17 06/01/17 06:59 18:59 06:59 Intake Total 970 220 Output Total 805 590 Balance 165 -370 Weight 93.1 kg 93.1 kg Intake: IV 130 220 Sodium Chloride 0.9% 1, 130 120 000 ml @ 50 mls/hr IV . Q20H DIAAN Rx#:[id number] cefTRIAXone 2,000 mg In 100 Sodium Chloride 0.9% 100 ml @ 100 mls/hr IVPB Q24HR DIANA Rx#:[id number] Oral 840 Output: Chest Tube Drainage 10 Chest Tube Right 10 Posterior Chest Urine 795 590 Other: Voiding Method Indwelling Catheter Indwelling Catheter # Bowel Movements 1 ABP, PAP, CO, CI - Last Documented Arterial Blood Pressure 152/70 - Exam Gen: This is a 52-year-old male. Patient is now extubated but is not a good historian HEENT: Head is atraumatic, normocephalic. Sclerae is anicteric. Dentition is in poor order NECK: Supple. No JVD. No lymphadenopathy. No thyromegaly. LUNGS: Diminished bilaterally with scattered crackles. Decreased breath sounds especially to the right base, chest tube is in place with improved aeration right base. HEART: Regular rate and rhythm. No murmur. pericardial tube in place. No crunch or crackle is heard 70 mL noted for drainage ABDOMEN: Soft. Bowel sounds are present. No masses. No tenderness. EXTREMITIES: No pedal edema. No calf swelling NEUROLOGICAL: The patient is extubated but remains a poor historian. But did move upper and lower extremities.is having visual hallucinations Skin is without rash or visualized breakdown - Labs CBC & Chem 7: 05/31/17 04:10 05/31/17 04:10 Labs: Abnormal Lab Results - Last 24 Hours (Table) 05/31/17 05/31/17 05/31/17 Range/Units 04:10 04:10 07:11 WBC 13.0 H (3.8-10.6) k/uL Neutrophils # 11.0 H (1.3-7.7) k/uL Lymphocytes # 0.7 L (1.0-4.8) k/uL Sodium 147 H (137-145) mmol/L Chloride 111 H (98-107) mmol/L BUN 22 H (9-20) mg/dL Creatinine 0.50 L (0.66-1.25) mg/dL Glucose 146 H (74-99) mg/dL POC Glucose (mg/dL) 268 H (75-99) mg/dL Calcium 7.9 L (8.4-10.2) mg/dL 05/31/17 05/31/17 05/31/17 Range/Units 07:14 11:17 12:13 WBC (3.8-10.6) k/uL Neutrophils # (1.3-7.7) k/uL Lymphocytes # (1.0-4.8) k/uL Sodium (137-145) mmol/L Chloride (98-107) mmol/L BUN (9-20) mg/dL Creatinine (0.66-1.25) mg/dL Glucose (74-99) mg/dL POC Glucose (mg/dL) 131 H 120 H 150 H (75-99) mg/dL Calcium (8.4-10.2) mg/dL 05/31/17 05/31/17 Range/Units 17:09 21:22 WBC (3.8-10.6) k/uL Neutrophils # (1.3-7.7) k/uL Lymphocytes # (1.0-4.8) k/uL Sodium (137-145) mmol/L Chloride (98-107) mmol/L BUN (9-20) mg/dL Creatinine (0.66-1.25) mg/dL Glucose (74-99) mg/dL POC Glucose (mg/dL) 184 H 120 H (75-99) mg/dL Calcium (8.4-10.2) mg/dL Microbiology - Last 24 Hours (Table) 05/26/17 09:47 Blood Culture - Preliminary Blood No Growth after 120 hours 05/26/17 09:47 Blood Culture - Preliminary Blood No Growth after 120 hours 05/28/17 12:55 Gram Stain - Preliminary Pleural Fluid Body Fluid Culture - Preliminary Laboratory Results WBC 13.0 k/uL (3.8-10.6) H 05/31/17 04:10 RBC 4.49 m/uL (4.30-5.90) 05/31/17 04:10 Hgb 14.4 gm/dL (13.0-17.5) 05/31/17 04:10 Hct 43.9 % (39.0-53.0) 05/31/17 04:10 MCV 97.8 fL (80.0-100.0) 05/31/17 04:10 MCH 32.0 pg (25.0-35.0) 05/31/17 04:10 MCHC 32.7 g/dL (31.0-37.0) 05/31/17 04:10 RDW 13.7 % (11.5-15.5) 05/31/17 04:10 Plt Count 282 k/uL (150-450) 05/31/17 04:10 Neutrophils % 85 % 05/31/17 04:10 Neutrophils % (Manual) 54.5 % 05/26/17 05:35 Band Neutrophils % 39.0 % 05/26/17 05:35 Lymphocytes % 5 % 05/31/17 04:10 Lymphocytes % (Manual) 4.5 % 05/26/17 05:35 Monocytes % 8 % 05/31/17 04:10 Monocytes % (Manual) 1.5 % 05/26/17 05:35 Eosinophils % 0 % 05/31/17 04:10 Basophils % 0 % 05/31/17 04:10 Metamyelocytes % 0.5 % 05/26/17 05:35 Neutrophils # 11.0 k/uL (1.3-7.7) H 05/31/17 04:10 Neutrophils # (Manual) 20.4 k/uL (1.3-7.7) H 05/26/17 05:35 Lymphocytes # 0.7 k/uL (1.0-4.8) L 05/31/17 04:10 Lymphocytes # (Manual) 1.0 k/uL (1.0-4.8) 05/26/17 05:35 Monocytes # 1.0 k/uL (0-1.0) 05/31/17 04:10 Monocytes # (Manual) 0.3 k/uL (0-1.0) 05/26/17 05:35 Eosinophils # 0.1 k/uL (0-0.7) 05/31/17 04:10 Basophils # 0.0 k/uL (0-0.2) 05/31/17 04:10 Nucleated RBCs 0 /100 WBC (0-0) 05/26/17 05:35 Manual Slide Review Performed 05/25/17 15:00 Toxic Granulation Present 05/26/17 05:35 RBC Morphology Normal 05/25/17 15:00 Polychromasia Present 05/26/17 05:35 Poikilocytosis (manual Present 05/26/17 05:35 Anisocytosis (manual) Present 05/26/17 05:35 PT 12.1 sec (9.0-12.0) H 05/28/17 10:45 INR 1.2 (<1.2) H 05/28/17 10:45 APTT 25.9 sec (22.0-30.0) 05/25/17 15:00 D-Dimer 1.32 mg/L FEU (<0.60) H 05/25/17 15:00 Sample Site charlene 05/30/17 05:16 ABG pH 7.49 (7.35-7.45) H 05/30/17 05:16 ABG pCO2 34 mmHg (35-45) L 05/30/17 05:16 ABG pO2 85 mmHg (83-108) 05/30/17 05:16 ABG HCO3 26 mmol/L (21-25) H 05/30/17 05:16 ABG Total CO2 27 mmol/L (19-24) H 05/30/17 05:16 ABG O2 Saturation 97.0 % (94-97) 05/30/17 05:16 ABG Base Excess 2.4 mmol/L 05/30/17 05:16 ABG Hematocrit 48 % (34.0-46.0) H 05/25/17 16:00 FiO2 40 % 05/30/17 05:16 Sodium 147 mmol/L (137-145) H 05/31/17 04:10 Potassium 3.5 mmol/L (3.5-5.1) 05/31/17 04:10 Chloride 111 mmol/L (98-107) H 05/31/17 04:10 Carbon Dioxide 27 mmol/L (22-30) 05/31/17 04:10 Anion Gap 9 mmol/L 05/31/17 04:10 BUN 22 mg/dL (9-20) H 05/31/17 04:10 Creatinine 0.50 mg/dL (0.66-1.25) L 05/31/17 04:10 Est GFR (MDRD) Af Amer >60 (>60 ml/min/1.73 sqM) 05/31/17 04:10 Est GFR (MDRD) Non-Af >60 (>60 ml/min/1.73 sqM) 05/31/17 04:10 Glucose 146 mg/dL (74-99) H 05/31/17 04:10 POC Glucose (mg/dL) 120 mg/dL (75-99) H 05/31/17 21:22 POC Glu Music Engraver ID Lyla Whipple 05/31/17 21:[address] Glu mg/dL 105 mg/dL 05/25/17 15:00 Hemoglobin A1c 5.3 % (4.2-6.1) 05/25/17 15:00 Lactic Ac Sepsis Rflx Y 05/26/17 06:08 Plasma Lactic Acid Rob 2.7 mmol/L (0.7-2.0) H* 05/26/17 09:47 Calcium 7.9 mg/dL (8.4-10.2) L 05/31/17 04:10 Phosphorus 3.3 mg/dL (2.5-4.5) 05/31/17 04:10 Magnesium 2.3 mg/dL (1.6-2.3) 05/31/17 04:10 Total Bilirubin 2.2 mg/dL (0.2-1.3) H 05/25/17 15:00 AST 117 U/L (17-59) H 05/25/17 15:00 ALT 72 U/L (21-72) 05/25/17 15:00 Alkaline Phosphatase 75 U/L (38-126) 05/25/17 15:00 Lactate Dehydrogenase 861 U/L (313-618) H 05/28/17 04:30 Total Creatine Kinase 29 U/L (55-170) L 05/25/17 15:00 CK-MB (CK-2) 0.6 ng/mL (0.0-2.4) 05/25/17 15:00 CK-MB (CK-2) Rel Index 2.1 05/25/17 15:00 Troponin I 0.030 ng/mL (0.000-0.034) 05/26/17 05:35 Total Protein 4.8 g/dL (6.3-8.2) L 05/28/17 04:30 Albumin 3.2 g/dL (3.5-5.0) L 05/25/17 15:00 Urine Color Yellow 05/26/17 05:00 Urine Appearance Cloudy (Clear) 05/26/17 05:00 Urine pH 5.5 (5.0-8.0) 05/26/17 05:00 Ur Specific [place] 1.030 (1.001-1.035) 05/26/17 05:00 Urine Protein 1+ (Negative) H 05/26/17 05:00 Urine Glucose (UA) Negative (Negative) 05/26/17 05:00 Urine Ketones Negative (Negative) 05/26/17 05:00 Urine Blood Moderate (Negative) H 05/26/17 05:00 Urine Nitrite Negative (Negative) 05/26/17 05:00 Urine Bilirubin Negative (Negative) 05/26/17 05:00 Urine Urobilinogen 2.0 mg/dL (<2.0) 05/26/17 05:00 Ur Leukocyte Esterase Trace (Negative) H 05/26/17 05:00 Urine RBC 10 /hpf (0-5) H 05/26/17 05:00 Urine WBC 15 /hpf (0-5) H 05/26/17 05:00 Urine WBC Clumps Rare /hpf (None) H 05/26/17 05:00 Ur Squamous Epith Cells 1 /hpf (0-4) 05/26/17 05:00 Amorphous Sediment Rare /hpf (None) H 05/26/17 05:00 Urine Bacteria Rare /hpf (None) H 05/26/17 05:00 Urine Mucus Rare /hpf (None) H 05/26/17 05:00 Fluid Source Pleural 05/28/17 12:55 Fluid Color Yellow 05/25/17 18:20 Fluid Appearance Hazy 05/28/17 12:55 Fluid RBC 440 /uL 05/28/17 12:55 Fluid Nucleated Cells 170 /uL 05/28/17 12:55 Fluid Polynuclear WBCs 83 % 05/28/17 12:55 Fluid Mononuclear WBCs 17 % 05/28/17 12:55 Body Fluid Glucose Source PARICA 05/25/17 18:20 Fluid Glucose <4 mg/dL 05/28/17 12:55 Body Fluid Protein Source PARICA 05/25/17 18:20 Fluid Total Protein 4300 mg/dL 05/28/17 12:55 Body Fluid LDH Source PARICA 05/25/17 18:20 Fluid LDH 3388 U/L 05/28/17 12:55 Fluid Comment 05/25/17 18:20 Vancomycin Trough 24.6 ug/mL 05/28/17 04:30 C. difficile (EIA) Intrp Negative (Negative) 05/31/17 04:20 Virus Source See Below 05/27/17 11:50 Viral Test See Below 05/27/17 11:50 Virus Analysis Interp See Below 05/27/17 11:50 Blood Type O Positive 05/25/17 15:00 Blood Type Recheck No 05/25/17 15:00 Antibody Screen NEGATIVE 05/25/17 15:00 Transfuse Plasma 05/25/2017 05/25/17 15:00 Spec Expiration Date 05/28/2017 - 2300 05/25/17 15:00 Microbiology 05/26/17 09:47 Blood Blood Culture - Preliminary No Growth after 120 hours 05/26/17 09:47 Blood Blood Culture - Preliminary No Growth after 120 hours 05/28/17 12:55 Pleural Fluid Gram Stain - Preliminary 05/28/17 12:55 Pleural Fluid Body Fluid Culture - Preliminary 05/28/17 12:55 Pleural Fluid Anaerobic Culture - Preliminary 05/25/17 18:20 Pericardial Fluid Anaerobic Culture - Final 05/27/17 11:50 Bronchial Washings - Random Gram Stain - Final 05/27/17 11:50 Bronchial Washings - Random Bronchial Washings Culture - Final Rachel albicans 05/27/17 11:50 Bronchial Washings - Random Acid Fast Bacilli Smear - Final 05/27/17 11:50 Bronchial Washings - Random Acid Fast Bacilli Culture - Preliminary 05/25/17 18:20 Pericardial Fluid Gram Stain - Final 05/25/17 18:20 Pericardial Fluid Body Fluid Culture - Final Streptococcus pneumoniae 05/27/17 11:50 Bronchial Washings - Random Fungal Culture - Preliminary 05/26/17 05:00 Urine,Catheterized Urine Culture - Final 05/25/17 18:20 Pericardial Fluid Acid Fast Bacilli Smear - Final 05/25/17 18:20 Pericardial Fluid Acid Fast Bacilli Culture - Preliminary Assessment and Plan (1) Alcoholism Status: Acute (2) Acute hypoxemic respiratory failure Status: Acute (3) Purulent pericarditis Narrative/Plan: 52-year-old gentleman who has a history of alcoholism who has radiological evidence of pneumonia. It is highly likely that the pneumonia resulted in the purulent pericarditis via direct extension. alpha streptococci have been isolated. It has been noted to be Streptococcus pneumoniae that is not drug- resistant. Antibiotic therapy with Rocephin and vancomycin is being utilized at this time pending further data. Blood cultures negative so far. As noted the patient's alcohol withdrawal is being treated, and his respiratory failure hopefully respond well to antibiotic therapy, treatment of the purulent pericarditis and underlying sepsis. The extensive leukocytosis is directly related to the purulent pericarditis and pneumonia, and with this current underlying status of alcoholism is a good prognostic sign and he was able to generate a leukocytosis. Chest tube is been placed in further cultures are pending. Blood cultures negative so far. Overall there is been improvement of his status. He is now extubated and doing well off of the ventilator. He is comfortable and neurologically not agitated. Still having some drainage from the august-cardial drain. Chest tube with minimal drainage. Is showing improvement. As noted cultures have Streptococcus pneumoniae and doing well with current antibiotic therapy of Rocephin. Will need several weeks of intravenous antibiotic therapy. The significant leukocytosis is improved 13 Status: Acute
--- NOTE | 2017-05-31 23:05 | P.PN ---
Subjective Principal diagnosis: Septic shock Mr. Araujo is a 52-year-old male with a past medical history of chronic low back pain, hypertension, alcohol abuse and nicotine dependence coming into the hospital with a chief complaint of chest pain. Patient has history of chronic low back pain and pain of his neck that has been going on but for the past 5 days his symptoms have worsened. Patient's chest pain got worse and he was complaining of 10 out of 10 and so called the EMS. The paramedics did perform an EKG which was suspicious for ST elevation OR. He was given aspirin and nitroglycerin and transferred to [facility] for further evaluation. So the director of online merchandising denial resolution specialist Dr. GRICELDA Gonzales was informed, who did an emergent cardiac catheterization. The patient had a stent placed in his LAD and was also noted to have a large pericardial effusion. So CT surgeon Dr. Multani came in and did a pericardiocentesis. There was 380 mL of fluid drained out. And the patient has been transferred to the ICU for further management and care. On 05/26/17- on the night of 05/26 the patient became very combative and was trying to put all his lines and the pericardial catheter. The patient was placed on a CIWA scale and given 10 mg of Ativan without much improvement in his symptoms. So eventually he was given Haldol after which the patient did calm down. Around 230 ml of fluid was drained from the pericardium. On 05/27/17 - patient was pretty confused, agitated and was on restraints , he was placed on BiPAP and as he was desaturating. Dr. Angel had to intubate the patient around 10 AM today due to impending respiratory failure due to ARDS. Patient also had a bronchoscopy done by Dr. Angel this morning. Patient's pericardial fluid came back to be positive for Streptococcus and he has been started on ceftriaxone. On 05/28/2017- patient still remains intubated. He is on a Levophed drip. Sedated on propofol. Patient had thoracentesisdone today and 400 mL of fluid was drained. And the chest tube was placed. 05/29/2017 Patient failed a weaning trial this morning. With sedation holiday patient is able to move all his 4 extremities and follows simple commands. Cultures from bronchial washings showed no growth for the past 24 hours. On 05/30/17 - pt has been extubated successfully and is saturating above 90 % on 3 lt of nasal canula. ROS_ Constitutional - generalized weakness. Cardiac - he c/o chest soreness Resipratory - MIld SOB and sore throat GI - no abdominal pain, nausea or vomiting . Objective - Vital Signs Vital signs: Vital Signs Temp 100.6 F H 05/30/17 08:00 Pulse 104 H 05/30/17 12:07 Resp 39 H 05/30/17 11:00 BP 111/70 05/27/17 18:00 Pulse Ox 96 05/30/17 11:00 - Exam GEN. APPEARANCE: no acute distress. Extubted HEAD EXAM: Atraumatic EYE EXAM: No pallor no icterus ENT EXAM: ET tube in place NECK EXAM: No carotid bruit. No thyromegaly RESPIRATORY EXAM: Diminished breath sounds bilaterally. Coarse breath sounds in all lung [place] with crackles. Right chest tube in place. CARDIOVASCULAR EXAM: Tachycardia. S1 and S2 heard. Pericardial drainage tube in place. GI/ABDOMINAL EXAM: Soft nontender. No guarding or rigidity. EXTREMITIES EXAM: No cyanosis, no swelling, no edema. NEUROLOGICAL EXAM: Sedated and intubated SKIN EXAM: warm to touch. No rash. - Labs CBC & Chem 7: 05/31/17 04:10 05/31/17 04:10 Labs: Abnormal Lab Results - Last 24 Hours (Table) 05/31/17 05/31/17 05/31/17 Range/Units 04:10 04:10 07:11 WBC 13.0 H (3.8-10.6) k/uL Neutrophils # 11.0 H (1.3-7.7) k/uL Lymphocytes # 0.7 L (1.0-4.8) k/uL Sodium 147 H (137-145) mmol/L Chloride 111 H (98-107) mmol/L BUN 22 H (9-20) mg/dL Creatinine 0.50 L (0.66-1.25) mg/dL Glucose 146 H (74-99) mg/dL POC Glucose (mg/dL) 268 H (75-99) mg/dL Calcium 7.9 L (8.4-10.2) mg/dL 05/31/17 05/31/17 05/31/17 Range/Units 07:14 11:17 12:13 WBC (3.8-10.6) k/uL Neutrophils # (1.3-7.7) k/uL Lymphocytes # (1.0-4.8) k/uL Sodium (137-145) mmol/L Chloride (98-107) mmol/L BUN (9-20) mg/dL Creatinine (0.66-1.25) mg/dL Glucose (74-99) mg/dL POC Glucose (mg/dL) 131 H 120 H 150 H (75-99) mg/dL Calcium (8.4-10.2) mg/dL 05/31/17 05/31/17 Range/Units 17:09 21:22 WBC (3.8-10.6) k/uL Neutrophils # (1.3-7.7) k/uL Lymphocytes # (1.0-4.8) k/uL Sodium (137-145) mmol/L Chloride (98-107) mmol/L BUN (9-20) mg/dL Creatinine (0.66-1.25) mg/dL Glucose (74-99) mg/dL POC Glucose (mg/dL) 184 H 120 H (75-99) mg/dL Calcium (8.4-10.2) mg/dL Microbiology - Last 24 Hours (Table) 05/26/17 09:47 Blood Culture - Preliminary Blood No Growth after 120 hours 05/26/17 09:47 Blood Culture - Preliminary Blood No Growth after 120 hours 05/28/17 12:55 Gram Stain - Preliminary Pleural Fluid Body Fluid Culture - Preliminary Assessment and Plan Plan: ASSESSMENT Septic shock Acute hypoxic respiratory failure secondary to ARDS Pneumonia right upper lobe ST elevation OR status post stenting of LAD Pericardial effusion Alcohol withdrawal delirium tremens Chronic liver disease Chronic alcohol abuse Chronic nicotine dependence PLAN Patient has been successfully extubated today, but still in ICU. Patient had pericardiocentesis with 380 mL drained initially , 230 mL of fluid darined next day, 125 ml on 05/28/17 and 85 ml yesterday . Pericardial fluid growing Streptococcus and so will be continued on Rocephin. Patient had thoracentesis done 05/29/17 with 400 mL of fluid drained and a chest tube was placed - pleural fluid cultures no growth until now.Continue with GI DVT prophylaxis. Further recommendations to follow depending on the progress of the patient. Overall prognosis guarded.
[2017-06-01] MEDS: LORazepam 2 MG/ML SYRINGE IV PRN ×3 (00:48→05:58)
--- NOTE | 2017-06-01 01:47 | P.PN ---
Subjective Principal diagnosis: Septic shock Mr. Araujo is a 52-year-old male with a past medical history of chronic low back pain, hypertension, alcohol abuse and nicotine dependence coming into the hospital with a chief complaint of chest pain. Patient has history of chronic low back pain and pain of his neck that has been going on but for the past 5 days his symptoms have worsened. Patient's chest pain got worse and he was complaining of 10 out of 10 and so called the EMS. The paramedics did perform an EKG which was suspicious for ST elevation VA. He was given aspirin and nitroglycerin and transferred to [facility] for further evaluation. So the booster station operator log sorting supervisor Dr. GRICELDA Gonzales was informed, who did an emergent cardiac catheterization. The patient had a stent placed in his LAD and was also noted to have a large pericardial effusion. So CT surgeon Dr. Multani came in and did a pericardiocentesis. There was 380 mL of fluid drained out. And the patient has been transferred to the ICU for further management and care. On 05/26/17- on the night of 05/26 the patient became very combative and was trying to put all his lines and the pericardial catheter. The patient was placed on a CIWA scale and given 10 mg of Ativan without much improvement in his symptoms. So eventually he was given Haldol after which the patient did calm down. Around 230 ml of fluid was drained from the pericardium. On 05/27/17 - patient was pretty confused, agitated and was on restraints , he was placed on BiPAP and as he was desaturating. Dr. Angel had to intubate the patient around 10 AM today due to impending respiratory failure due to ARDS. Patient also had a bronchoscopy done by Dr. Angel this morning. Patient's pericardial fluid came back to be positive for Streptococcus and he has been started on ceftriaxone. On 05/28/2017- patient still remains intubated. He is on a Levophed drip. Sedated on propofol. Patient had thoracentesisdone today and 400 mL of fluid was drained. And the chest tube was placed. 05/29/2017 Patient failed a weaning trial this morning. With sedation holiday patient is able to move all his 4 extremities and follows simple commands. Cultures from bronchial washings showed no growth for the past 24 hours. On 05/30/17 - pt has been extubated successfully and is saturating above 90 % on 3 lt of nasal canula. on 05/31/17 Pt. is confused but able to answer slowly. resp status improved. still on chest tube and pericardial drain tube. ROS_ Constitutional - generalized weakness. Cardiac - he c/o chest soreness Resipratory - MIld SOB and sore throat GI - no abdominal pain, nausea or vomiting . Objective - Vital Signs Vital signs: Vital Signs Temp 99 F 05/31/17 16:00 Pulse 96 05/31/17 23:00 Resp 18 05/31/17 23:00 BP 129/89 05/31/17 22:00 Pulse Ox 96 05/31/17 23:00 Intake & Output 05/31/17 05/31/17 06/01/17 06:59 18:59 06:59 Intake Total 970 220 40 Output Total 805 590 225 Balance 165 -370 -185 Weight 93.1 kg 93.1 kg Intake: IV 130 220 40 Sodium Chloride 0.9% 1, 130 120 40 000 ml @ 50 mls/hr IV . Q20H [facility] Rx#:[id number] cefTRIAXone 2,000 mg In 100 Sodium Chloride 0.9% 100 ml @ 100 mls/hr IVPB Q24HR [facility] Rx#:[id number] Oral 840 Output: Chest Tube Drainage 10 0 Chest Tube Right 10 0 Posterior Chest Urine 795 590 225 Other: Voiding Method Indwelling Catheter Indwelling Catheter Indwelling Catheter # Bowel Movements 1 ABP, PAP, CO, CI - Last Documented Arterial Blood Pressure 136/65 - Exam GEN. APPEARANCE: no acute distress. Extubted HEAD EXAM: Atraumatic EYE EXAM: No pallor no icterus ENT EXAM: ET tube in place NECK EXAM: No carotid bruit. No thyromegaly RESPIRATORY EXAM: Diminished breath sounds bilaterally. Coarse breath sounds in all lung [place] with crackles. Right chest tube in place. CARDIOVASCULAR EXAM: Tachycardia. S1 and S2 heard. Pericardial drainage tube in place. GI/ABDOMINAL EXAM: Soft nontender. No guarding or rigidity. EXTREMITIES EXAM: No cyanosis, no swelling, no edema. NEUROLOGICAL EXAM: Sedated and intubated SKIN EXAM: warm to touch. No rash. - Labs CBC & Chem 7: 05/31/17 04:10 05/31/17 04:10 Labs: Abnormal Lab Results - Last 24 Hours (Table) 05/31/17 05/31/17 05/31/17 Range/Units 04:10 04:10 07:11 WBC 13.0 H (3.8-10.6) k/uL Neutrophils # 11.0 H (1.3-7.7) k/uL Lymphocytes # 0.7 L (1.0-4.8) k/uL Sodium 147 H (137-145) mmol/L Chloride 111 H (98-107) mmol/L BUN 22 H (9-20) mg/dL Creatinine 0.50 L (0.66-1.25) mg/dL Glucose 146 H (74-99) mg/dL POC Glucose (mg/dL) 268 H (75-99) mg/dL Calcium 7.9 L (8.4-10.2) mg/dL 05/31/17 05/31/17 05/31/17 Range/Units 07:14 11:17 12:13 WBC (3.8-10.6) k/uL Neutrophils # (1.3-7.7) k/uL Lymphocytes # (1.0-4.8) k/uL Sodium (137-145) mmol/L Chloride (98-107) mmol/L BUN (9-20) mg/dL Creatinine (0.66-1.25) mg/dL Glucose (74-99) mg/dL POC Glucose (mg/dL) 131 H 120 H 150 H (75-99) mg/dL Calcium (8.4-10.2) mg/dL 05/31/17 05/31/17 Range/Units 17:09 21:22 WBC (3.8-10.6) k/uL Neutrophils # (1.3-7.7) k/uL Lymphocytes # (1.0-4.8) k/uL Sodium (137-145) mmol/L Chloride (98-107) mmol/L BUN (9-20) mg/dL Creatinine (0.66-1.25) mg/dL Glucose (74-99) mg/dL POC Glucose (mg/dL) 184 H 120 H (75-99) mg/dL Calcium (8.4-10.2) mg/dL Microbiology - Last 24 Hours (Table) 05/26/17 09:47 Blood Culture - Preliminary Blood No Growth after 120 hours 05/26/17 09:47 Blood Culture - Preliminary Blood No Growth after 120 hours 05/28/17 12:55 Gram Stain - Preliminary Pleural Fluid Body Fluid Culture - Preliminary Assessment and Plan Plan: ASSESSMENT Septic shock Streptococcal pericarditis Acute hypoxic respiratory failure secondary to ARDS Pneumonia right upper lobe ST elevation VA status post stenting of LAD Pericardial effusion Alcohol withdrawal delirium tremens Chronic liver disease Chronic alcohol abuse Chronic nicotine dependence PLAN Patient has been successfully extubated .still in ICU. Patient had pericardiocentesis with 380 mL drained initially , 230 mL of fluid darined next day, 125 ml on 05/28/17 and 85 ml on 05/29 . Pericardial fluid growing Streptococcus and so will be continued on Rocephin. Patient had thoracentesis done 05/29/17 with 400 mL of fluid drained and a chest tube was placed - pleural fluid cultures no growth until now.Continue with GI DVT prophylaxis. Further recommendations to follow depending on the progress of the patient. Overall prognosis guarded. Time with Patient: Greater than 30
[2017-06-01 04:25] LABS: Basophils % (A) 0 %; CH 30.5; CHCM 32.3; Eosinophils # (A) 0.1 k/uL (0-0.7); Eosinophils % (A) 1 %; HCT 42.3 % (39.0-53.0); HDW 2.51; Luc # (Auto) 0.16; Luc % (Auto) 1; Lymphocytes # (A) 0.7 k/uL (1.0-4.8); Lymphocytes % (A) 6 %; MCH 31.3 pg (25.0-35.0); MCV 94.9 fL (80.0-100.0); Mean Platelet Volume 7.1; Monocytes # (A) 0.4 k/uL (0-1.0); Monocytes % (A) 3 %; Neutrophils # (A) 10.8 k/uL (1.3-7.7); Neutrophils % (A) 88 %; RBC 4.46 m/uL (4.30-5.90); WBC 12.3 k/uL (3.8-10.6); WBC (Perox) 12.95
[2017-06-01 04:42] LABS: Anion Gap 8 mmol/L; Blood Urea Nitrogen 19 mg/dL (9-20); Calcium 7.9 mg/dL (8.4-10.2); Carbon Dioxide 26 mmol/L (22-30); Chloride 111 mmol/L (98-107); Glucose 118 mg/dL (74-99); Magnesium 2.3 mg/dL (1.6-2.3); Non-African American GFR(MDRD) >60 (>60 ml/min/1.73 sqM); Phosphorous 3.4 mg/dL (2.5-4.5); Potassium 3.5 mmol/L (3.5-5.1); Sodium 145 mmol/L (137-145)
[2017-06-01] MEDS ORDERED: POTASSIUM CHLORIDE 20 MEQ in WATER FOR INJECTION 1 100ML.BAG IVPB ONE (04:53)
[2017-06-01] MEDS: INSULIN LISPRO (humaLOG) 300 UNIT/3 ML VIAL SQ SCH ×4 (07:08→21:02)
[2017-06-01 07:10] LABS: Glucose,Whole Blood 106 mg/dL (75-99)
[2017-06-01] MEDS: IPRATROPIUM-ALBUTEROL 3 ML NEB INHALATION SCH ×4 (07:49→19:33)
--- NOTE | 2017-06-01 08:03 | XR ---
EXAMINATION TYPE: XR chest 1V portable DATE OF EXAM: 06/01/2017 HISTORY: Shortness of breath. COMPARISON: 05/31/2017 TECHNIQUE: Single view of the chest is submitted. FINDINGS: Demonstrated are scattered senescent parenchymal change. Stable patchy perihilar and basilar infiltrates may reflect pneumonia. Superimposed congestive failur e is difficult to exclude. Central venous line is unchanged in position. The heart is stable. Hilar and mediastinal structures are within normal limits. Degenerative changes are seen of the dorsal spine. IMPRESSION: 1. Stable patchy perihilar and basilar infiltrates may reflect pneumonia. Superimposed congestive fa ilure is difficult to exclude.
[2017-06-01] MEDS: cefTRIAXone 2,000 MG in SODIUM CHLORIDE 0.9% 100 ML IVPB SCH (08:37)
[2017-06-01] MEDS: ATORVASTATIN 40 MG TAB PO SCH (08:37)
[2017-06-01] MEDS: ENOXAPARIN 40 MG/0.4 ML SYRINGE SQ SCH (08:37)
[2017-06-01] MEDS: METOPROLOL TARTRATE 25 MG TAB PO SCH ×3 (08:38→21:02)
[2017-06-01] MEDS: ASPIRIN 81 MG CHEW PO SCH (08:38)
[2017-06-01] MEDS: CLOPIDOGREL 75 MG TAB PO SCH (08:38)
[2017-06-01] MEDS: ESOMEPRAZOLE 20 MG in SODIUM CHLORIDE 0.9% 50 ML IVPB SCH (08:52)
--- NOTE | 2017-06-01 08:57 | P.PN ---
Subjective Principal diagnosis: Large pericardial effusion with tamponade physiology with cultures growing Streptococcus pneumoniae, acute ST elevation myocardial infarction involving the apical-lateral wall of the left ventricle, history of alcohol abuse with active delirium tremens on CIWA protocol, history of chronic nicotine dependence , and chronic obstructive pulmonary disease. Acute hypoxic respiratory failure with development of diffuse pulmonary infiltrates, possible ARDS, requiring mechanical ventilation. POD #4 bronchoscopy with alveolar lavage. Pleural effusion, POD #4 right pleural chest tube placement POD #6 bedside echo guided pericardiocentesis and insertion of pericardial drain POD #6 left heart catheterization, coronary angiogram with placement of stent to his left anterior descending artery by Dr. Radha Gonzales. Patient is currently sitting up in bed in no acute distress. Patient still quite confused. Sitter at bedside. Objective - Vital Signs Vital signs: Vital Signs Temp 99.7 F H 06/01/17 04:00 Pulse 108 H 06/01/17 08:02 Resp 22 06/01/17 07:00 BP 129/89 05/31/17 22:00 Pulse Ox 98 06/01/17 07:51 Intake & Output 05/31/17 06/01/17 06/01/17 18:59 06:59 18:59 Intake Total 220 510 50 Output Total 590 595 50 Balance -370 -85 0 Weight 93.1 kg 96.7 kg Intake: IV 220 150 50 Potassium Chloride 20 meq 50 50 In Water For Injection 1 100ml.bag @ 50 mls/hr IVPB ONCE ONE Rx#: [id number] Sodium Chloride 0.9% 1, 120 100 000 ml @ 50 mls/hr IV . Q20H [facility] Rx#:[id number] cefTRIAXone 2,000 mg In 100 Sodium Chloride 0.9% 100 ml @ 100 mls/hr IVPB Q24HR [facility] Rx#:[id number] Oral 360 Output: Chest Tube Drainage 30 Chest Tube Right 30 Posterior Chest Urine 590 565 50 Other: Voiding Method Indwelling Catheter Indwelling Catheter # Bowel Movements 1 ABP, PAP, CO, CI - Last Documented Arterial Blood Pressure 141/77 - Constitutional General appearance: Present: disheveled, no acute distress - Respiratory Details: Lungs sounds coarse bilaterally. Respirations even, nonlabored, slightly tachypneic. Currently on 3 L nasal cannula with oxygen saturation 94%. Right pleural chest tube to -20 cm wall suction, drained 30 mL serous fluid in the last 24 hours. - Cardiovascular Details: S1, S2 present. Tachycardia rate, regular rhythm, sinus tach on telemetry. Pericardial drain present, 60 mL straw-colored drainage removed today. - Gastrointestinal Gastrointestinal Comment(s): Abdomen soft, nontender, nondistended. Active bowel sounds 4 quadrants. Tolerating diet. - Genitourinary Genitourinary Comment(s): [place] present draining clear, yellow urine. Output 50 mL per hour. - Musculoskeletal Musculoskeletal: Present: strength equal bilaterally - Psychiatric Psychiatric Comment(s): Alert and oriented to person and place only. - Allied health notes Allied health notes reviewed: nursing - Labs CBC & Chem 7: 06/01/17 04:10 06/01/17 04:10 Labs: Abnormal Lab Results - Last 24 Hours (Table) 05/31/17 05/31/17 05/31/17 Range/Units 11:17 12:13 17:09 WBC (3.8-10.6) k/uL Neutrophils # (1.3-7.7) k/uL Lymphocytes # (1.0-4.8) k/uL Chloride (98-107) mmol/L Creatinine (0.66-1.25) mg/dL Glucose (74-99) mg/dL POC Glucose (mg/dL) 120 H 150 H 184 H (75-99) mg/dL Calcium (8.4-10.2) mg/dL 05/31/17 06/01/17 06/01/17 Range/Units 21:22 04:10 04:10 WBC 12.3 H (3.8-10.6) k/uL Neutrophils # 10.8 H (1.3-7.7) k/uL Lymphocytes # 0.7 L (1.0-4.8) k/uL Chloride 111 H (98-107) mmol/L Creatinine 0.50 L (0.66-1.25) mg/dL Glucose 118 H (74-99) mg/dL POC Glucose (mg/dL) 120 H (75-99) mg/dL Calcium 7.9 L (8.4-10.2) mg/dL 06/01/17 Range/Units 07:06 WBC (3.8-10.6) k/uL Neutrophils # (1.3-7.7) k/uL Lymphocytes # (1.0-4.8) k/uL Chloride (98-107) mmol/L Creatinine (0.66-1.25) mg/dL Glucose (74-99) mg/dL POC Glucose (mg/dL) 106 H (75-99) mg/dL Calcium (8.4-10.2) mg/dL Microbiology - Last 24 Hours (Table) 05/26/17 09:47 Blood Culture - Preliminary Blood No Growth after 120 hours 05/26/17 09:47 Blood Culture - Preliminary Blood No Growth after 120 hours 05/28/17 12:55 Gram Stain - Preliminary Pleural Fluid Body Fluid Culture - Preliminary - Imaging and Cardiology Chest x-ray: image reviewed Assessment and Plan (1) COPD (chronic obstructive pulmonary disease) Status: Acute (2) Nicotine dependence Status: Acute (3) Alcoholism Status: Acute (4) Pericardial effusion Status: Acute (5) ST elevation myocardial infarction (STEMI) Status: Acute (6) Acute hypoxemic respiratory failure Status: Acute Plan: 1. Will drain pericardial fluid daily until removal. Drained 60 mL this morning. Echo ordered May 30 reviewed, small pericardial effusion remains. 2. Will monitor chest tube output. CT of chest on yesterday per Dr. Angel to eval loculated pleural effusion, question benefits of intrapleural TPA administration. 3. Continue antibiotics per infectious disease recommendations. 4. Continue aspirin, Lipitor, Plavix, beta ira per cardiology services. 5. GI/DVT prophylaxis. 6. Daily labs, x-rays. 7. More recommendations to follow. Time with Patient: Greater than 30
[2017-06-01] MEDS ORDERED: ALTEPLASE 10 MG in SODIUM CHLORIDE 0.9% 100 ML IRRIGATION ONE (09:14)
[2017-06-01] MEDS ORDERED: ALTEPLASE 5 MG in SODIUM CHLORIDE 0.9% 50 ML IRRIGATION ONE ×2 (09:18→09:30)
[2017-06-01] MEDS: methylPREDNISolone SOD SUCCI 40 MG/ML 1 ML VIAL IV SCH ×2 (09:52→16:05)
--- NOTE | 2017-06-01 12:09 | P.PN ---
Subjective 52-year-old gentleman, known history of alcoholism, presented to the hospital because of increased chest pain. He was found to have ST segment elevation myocardial infarction. The patient was taken to the [facility] on an emergent basis and he had stents placed into his LAD for a 70% LAD lesion. He was also found to have a large pericardial effusion and leukocytosis. He was seen by surgery and he underwent a bedside pericardiocentesis and total of 380 mL of fluid was drained from the pericardial space. Initial cultures are growing up hemolytic strep and the patient is or the being covered with a combination of Rocephin and vancomycin. Note that his initial chest x-ray on admission showed a right upper lobe consolidation and subsequent x-ray showed diffuse lateral pulmonary infiltrates typical of an underlying ARDS. The patient also went into delirium tremens. Overnight she had become quite a bit agitated and he had required a total of 8 mg of Ativan throughout the night. This morning, the patient is lethargic, and 2. restraints, confused and sometimes agitated. He is on a BiPAP at a pressure of 12/5 cm of water with an FiO2 of 100%. Earlier he was on a percent and he had to be brought up to 100% to maintain a saturation above 90%. He has good pulses in all 4 extremities. He is producing approximately 50 mL an hour. He is on normal saline at the rate of 75 mL an hour. White cell count remains elevated at 28.6. He is on no pressors for now. No significant electrode abnormalities. No acidosis. Echocardiogram that was done earlier showed a preserved LV function. The patient has a pericardial tube in place and total amount of output that was drained this morning is around 125, brownish to yellowish pericardial fluid. Note that the fluid analysis was done earlier showed elevated LDH and protein. White cell count is also elevated at 44,000 with 92% on a nuclear white cells. On 05/28/2017 the patient remains intubated on a mechanical ventilator. He is sedated with Diprivan and is calm and comfortable. Spiked a high rate of the prevent, the patient is still easily arousable. Hemodynamically stable on no pressors. He remains on a mechanical ventilator on assist control mode at the rate of 24, tidal volume 500, FiO2 of 50% and a PEEP of 8. The blood gases from this morning showed a pH of 7.42 with a pCO2 of 36 and pO2 of 69. I reviewed the chest x-ray from today that shows no interval change and there is diffuse breath and pulmonary infiltrates and ET tube is in a good location. The CAT scan of the chest that was done yesterday showed development of a loculated pleural effusion on the right more so a large pocket sitting in the posterior aspect of the right hemithorax which I think it's accessible for percutaneous drainage and for that reason I discussed this case with interventional radiology and will going to proceed with this procedure despite the fact that the patient on a combination of aspirin and Plavix. I think the benefits of this procedure will outweigh the risk. Meanwhile a bronchoscopy and the bronchioloalveolar lavage was done yesterday and the cultures are all negative thus far. The patient's pericardial effusion culture showed strep pneumonia which is sensitive to all antibiotics and the patient complications on a combination of vancomycin and Rocephin. Vancomycin may be ultimately discontinued and this will be discussed further with infectious disease. He will be started on tube feeds today. He is otherwise doing well and there has been no other issues over the past 24 hours. On 05/29/2017 the patient is being seen in the follow-up. The patient remains intubated on a mechanical ventilator and sedated and calm and comfortable. As mentioned earlier, there was a concern of a empyema. Based on that I talked interventional radiology and were able to drain the loculated pleural fluid on the right. The fluid was nonpurulent. The white cell count within the fluid was nonelevated and the cultures still pending for now. The procedure was not the bedside successfully a total of 600 mL of fluid was aspirated from the right lung. At this point in time the right-sided chest tube is connected to Pleur-evac and is not draining actively. The chest x-ray however shows marked improvement in the pneumonia and in the loculated pleural fluid that was seen on the right. ET tube is sitting high in the trachea. The patient is an assist -control mode at the rate of 24, tidal volume of 500, FiO2 of 50% and a PEEP of 8. Morning blood gases showed a pH of 7.41 with a pCO2 of 38 and pO2 of 152 and there has been marked improvement in his oxygenation. The only positive cultures from his pericardial fluid which is strep pneumo and the patient on high-dose Rocephin. Vancomycin was discontinued by infectious disease as the strep pneumo has been sensitive. He was dynamically stable. Tolerating his tube feeds. Was given a sedation holiday this morning and he was able to wake up and follow commands appropriately. The pericardial tube is not draining at this point. On 05/30/2017 I'm seeing this patient in follow-up. The patient is doing well. I reviewed the chest x-ray and there is some residual infiltration of however they x-ray findings have essentially improved and the patient is improving in terms of his pneumonia. The right-sided pleural effusion was also drained percutaneously with a smaller chest tube by interventional radiology. The fluid cultures of been all negative. The blood culture been negative. The pericardial effusion was positive for Streptococcus pneumonia. The patient is on IV Rocephin 2 g every 24 hours. The patient has a pericardial catheter in place and yesterday the drainage was only 20-30 mL, none for today. This morning, the patient was taken off sedation. He woke up appropriately. Unable to complete the. He has breathing trial as the patient was becoming more and more agitated and anxious and his blood pressure was fluctuating and he was becoming tachypneic. At that point I noted the patient had adequate strength an adequate gag and cough reflex. He is at which her breathing index was also reasonable. At that point I decide to extubate this patient without giving him is participating trial. He extubated successfully and currently is on 5 L oxygen by nasal cannula. This was subsequently weaned down to 3 L. Hemodynamically stable. No chest pain. No other significant issues overnight. The patient is somewhat lethargic over he is still recovering from his underlying sedation. No tremors. No agitation. No signs of delirium tremens at this point. On 05/31/2017 I'm seeing this patient in follow-up. As mentioned earlier, the patient was extubated yesterday without any major difficulties. At the later stage the patient started having symptoms of delirium. He was on and off confused throughout the night and he sees a total of 6 mg of IV Ativan for delirium tremens. This morning, he is not oriented to time and place. His multiple of her extremities. No headache. The antibiotics are still unchanged and the patient is on high dose Rocephin regarding pneumococcal pneumonia and acute pneumococcal pericarditis. The pericardial catheter has drained 80 mL yesterday and there is no active drainage from the right-sided chest tube. Chest x-ray still showing breath and pulmonary infiltrates although improved compared to the initial chest x-ray from May 28. The patient is resting comfortably in bed. No signs of respiratory distress. Active issues for now remains his altered mentation and the delirium tremens. Hemodynamically stable. On 06/01/2017 the patient remains extubated. The patient remains in the intensive care unit. Mentation is still impaired and the patient is still delirious and he is not fully recovered from his delirium tremens. He is not agitated at this point. He had received a total of 8 mg of Ativan since yesterday evening. He is breathing comfortably in bed. There pericardial tube has drained 80 mL today and I reviewed the CAT scan of the chest that showed a loculated right-sided pleural effusion measuring 9.5 x 4.6 x 6.4 cm in size and this is obviously smaller compared to the previous measurement. Additional smaller loculation was also seen. Tiny free flowing effusion is also present bilaterally. Several lymph nodes within the mediastinum largest being 13 mm in size and there is not a 14 mm right paratracheal lymph node also. The patient made on IV Rocephin however today he has developed a maculopapular rash over the anterior chest and back area which could be potentially an ALLERGIC reaction. Cephalosporin ALLERGY needs to be considered. Hemodynamically stable. Producing adequate amount of urine output. He is not eating much over his swallowing is medication. White cell count is at 12.3. The rest of the electrodes are within normal limits. No new cultures are available at this point. Objective - Vital Signs Vital signs: Vital Signs Temp 101.2 F H 06/01/17 08:00 Pulse 99 06/01/17 11:24 Resp 33 H 06/01/17 10:00 BP 129/89 05/31/17 22:00 Pulse Ox 95 06/01/17 10:00 Intake & Output 05/31/17 06/01/17 06/01/17 18:59 06:59 18:59 Intake Total 220 510 335 Output Total 590 595 250 Balance -370 -85 85 Weight 93.1 kg 96.7 kg 96.7 kg Intake: IV 220 150 165 Potassium Chloride 20 meq 50 65 In Water For Injection 1 100ml.bag @ 50 mls/hr IVPB ONCE ONE Rx#: [id number] Sodium Chloride 0.9% 1, 120 100 000 ml @ 50 mls/hr IV . Q20H [facility] Rx#:[id number] cefTRIAXone 2,000 mg In 100 100 Sodium Chloride 0.9% 100 ml @ 100 mls/hr IVPB Q24HR [facility] Rx#:[id number] Intake, IV Titration 50 Amount Esomeprazole 20 mg In 50 Sodium Chloride 0.9% 50 ml @ 100 mls/hr IVPB DAILY [facility] Rx#:[id number] Oral 360 120 Output: Chest Tube Drainage 30 Chest Tube Right 30 Posterior Chest Urine 590 565 250 Other: Voiding Method Indwelling Catheter Indwelling Catheter Indwelling Catheter # Bowel Movements 1 ABP, PAP, CO, CI - Last Documented Arterial Blood Pressure 153/75 - Exam T Head exam was generally normal. There was no scleral icterus or corneal arcus. Mucous membranes were moist..Neck was supple and without jugular venous distension, thyromegaly, or carotid bruits. Carotids were easily palpable bilaterally. There was no adenopathy. Orogastric and oral tracheal tube are both in place.Head exam was generally normal. There was no scleral icterus or corneal arcus. Mucous membranes were moist. Lungs sounds are diminished bilaterally. Breath sounds are equal and symmetrical however. No wheezes. The right-sided chest tube is still in place. This is connected to a Pleur- evac. Heart sounds are regular, positive S1-S2 and there is a friction rub can be appreciated over the anterior chest wall. The pericardial tube, a triple lumen catheter which has been inserted substernally.Abdominal exam revealed normal bowel sounds. The abdomen was soft, non-tender, and without masses, organomegaly, or appreciable enlargement of the abdominal aorta.Examination of the extremities revealed easily palpable radial, femoral and pedal pulses. There was no cyanosis, clubbing or edema. Neurologically , the patient is moving all 4 extremities. Confused. At times agitated and there is a 24 hour sitter at the bedside. - Labs CBC & Chem 7: 06/01/17 04:10 06/01/17 04:10 Labs: Abnormal Lab Results - Last 24 Hours (Table) 05/31/17 05/31/17 05/31/17 Range/Units 12:13 17:09 21:22 WBC (3.8-10.6) k/uL Neutrophils # (1.3-7.7) k/uL Lymphocytes # (1.0-4.8) k/uL Chloride (98-107) mmol/L Creatinine (0.66-1.25) mg/dL Glucose (74-99) mg/dL POC Glucose (mg/dL) 150 H 184 H 120 H (75-99) mg/dL Calcium (8.4-10.2) mg/dL 06/01/17 06/01/17 06/01/17 Range/Units 04:10 04:10 07:06 WBC 12.3 H (3.8-10.6) k/uL Neutrophils # 10.8 H (1.3-7.7) k/uL Lymphocytes # 0.7 L (1.0-4.8) k/uL Chloride 111 H (98-107) mmol/L Creatinine 0.50 L (0.66-1.25) mg/dL Glucose 118 H (74-99) mg/dL POC Glucose (mg/dL) 106 H (75-99) mg/dL Calcium 7.9 L (8.4-10.2) mg/dL Microbiology - Last 24 Hours (Table) 05/26/17 09:47 Blood Culture - Final Blood No Growth after 144 hours 05/26/17 09:47 Blood Culture - Final Blood No Growth after 144 hours 05/28/17 12:55 Gram Stain - Final Pleural Fluid Body Fluid Culture - Final Assessment and Plan Plan: Assessment 1 acute hypoxic respiratory failure with development of diffuse breath and pulmonary infiltrates. CAT scan of the chest was reviewed and the findings are consistent with diffuse bilateral pneumonia with loculated right-sided pleural effusion with possibly empyema versus a complicated loculated parapneumonic fluids. A small bore chest tube was inserted to the right hemithorax and total of 600 mL the pleural fluid was aspirated. The cultures been negative at this point. While, there has been significant improvement in the pulmonary infiltration and oxygenation on today's evaluation. The patient remains intubated on a mechanical ventilator. On 05/30/2017, the patient was taken off sedation and he demonstrated adequate ability to maintain his airways patent and he had adequate neurologic function with the patient woke up and he was following commands moving all 4 extremities without any limitation. At that point the decision was to extubate this patient and this was a successful extubation. Currently is on 3 L of oxygen by nasal cannula. On 05/31/2017, the patient remains extubated. A repeat CAT scan of the chest will be obtained to follow-up on the loculated pleural effusion and decided the patient may benefit from an intrapleural TPA. We'll keep the pericardial catheter in place as long as there is still on and off drainage as the patient has drained approximately 80 mL yesterday. The patient is extubated. The patient on IV Rocephin. On 06/01/2017, the CAT scan of the chest was reviewed and the smaller chest tube is still in a good location however it is not draining a lot. Based on this, alteplase will be infused to enhance further drainage from the loculated right-sided pleural effusion. 2 acute STEMI status post emergent cardiac catheterization and stenting of the LAD 3 acute infectious pneumococcal pericarditis, with a pericardial effusion/ infected pericardial fluid with cultures growing strep pneumo, status post percutaneous drainage of the pericardial effusion at the bedside and the patient has a triple lumen catheter placed within the pericardium. The output from the pericardial tube is minimal at this point, essentially non 4 alcoholism 5 delirium tremens , with ongoing mental status change. Still requiring Ativan for conusion and delerium 6 Maculopapular rash, possibly antibiotics induced and this will be discussed with ID Plan We'll keep the patient in intensive care unit. We'll monitor the mentation. We 'll give Ativan as needed for agitation and symptoms of the delirium tremens. We will infuse alteplase into the right-sided chest tube and this often enhance the drainage from the residual loculated pleural effusion is present on the CAT scan and this is essentially located in the right lower lobe. Continue aspirating on a daily basis from the pericardial tube. Continued IV antibiotics. This will be further discussed with infectious disease knowing that the patient has developed a rash and this could be related to cephalosporin. We'll give him a dose of IV Solu-Medrol right now and continue Solu Medrol 40 mg every 8 hours. We'll discuss with ID and talk about alternatives and considering changing antibiotics. The patient be kept in intensive care unit. We will continue to follow.
[2017-06-01 12:22] LABS: Glucose,Whole Blood 118 mg/dL (75-99)
[2017-06-01 17:59] LABS: Glucose,Whole Blood 162 mg/dL (75-99)
--- NOTE | 2017-06-01 19:06 | P.PN ---
Subjective Mr. Araujo is a 52-year-old male with a past medical history of chronic low back pain, hypertension, alcohol abuse and nicotine dependence coming into the hospital with a chief complaint of chest pain. Patient has history of chronic low back pain and pain of his neck that has been going on but for the past 5 days his symptoms have worsened. Patient's chest pain got worse and he was complaining of 10 out of 10 and so called the EMS. The paramedics did perform an EKG which was suspicious for ST elevation NM. He was given aspirin and nitroglycerin and transferred to [facility] for further evaluation. 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 GRICELDA Gonzales was informed, who did an emergent cardiac catheterization. The patient had a stent placed in his LAD and was also noted to have a large pericardial effusion. So CT surgeon Dr. Multani came in and did a pericardiocentesis. There was 380 mL of fluid drained out. And the patient has been transferred to the ICU for further management and care. On 05/26/17- on the night of 05/26 the patient became very combative and was trying to put all his lines and the pericardial catheter. The patient was placed on a CIWA scale and given 10 mg of Ativan without much improvement in his symptoms. So eventually he was given Haldol after which the patient did calm down. Around 230 ml of fluid was drained from the pericardium. On 05/27/17 - patient was pretty confused, agitated and was on restraints , he was placed on BiPAP and as he was desaturating. Dr. Angel had to intubate the patient around 10 AM today due to impending respiratory failure due to ARDS. Patient also had a bronchoscopy done by Dr. Angel this morning. Patient's pericardial fluid came back to be positive for Streptococcus and he has been started on ceftriaxone. On 05/28/2017- patient still remains intubated. He is on a Levophed drip. Sedated on propofol. Patient had thoracentesisdone today and 400 mL of fluid was drained. And the chest tube was placed. 05/29/2017 Patient failed a weaning trial this morning. With sedation holiday patient is able to move all his 4 extremities and follows simple commands. Cultures from bronchial washings showed no growth for the past 24 hours. On 05/30/17 - pt has been extubated successfully and is saturating above 90 % on 3 lt of nasal canula. on 05/31/17 Pt. is confused but able to answer slowly. resp status improved. still on chest tube and pericardial drain tube. 06/01/17 pt is confused able to answer questions no overnight events reported tries to get out of bed ROS_ deferred due to pt's confusion - Exam GEN. APPEARANCE: no acute distress. Extubted HEAD EXAM: Atraumatic EYE EXAM: No pallor no icterus ENT EXAM: ET tube in place NECK EXAM: No carotid bruit. No thyromegaly RESPIRATORY EXAM: Diminished breath sounds bilaterally. Coarse breath sounds in all lung [place] with crackles. Right chest tube in place. CARDIOVASCULAR EXAM: Tachycardia. S1 and S2 heard. GI/ABDOMINAL EXAM: Soft nontender. No guarding or rigidity. EXTREMITIES EXAM: No cyanosis, no swelling, no edema. NEUROLOGICAL EXAM: confused SKIN EXAM: warm to touch. No rash. Assessment and Plan Plan: ASSESSMENT Septic shock Streptococcal pericarditis Acute hypoxic respiratory failure secondary to ARDS Pneumonia right upper lobe ST elevation NM status post stenting of LAD Pericardial effusion Alcohol withdrawal delirium tremens Chronic liver disease Chronic alcohol abuse Chronic nicotine dependence PLAN continue with full ICU support delirium is still noted chest tube management per CTS ABX DVT prophylaxis Objective - Vital Signs Vital signs: Vital Signs Temp 99.8 F H 06/01/17 16:00 Pulse 146 H 06/01/17 18:00 Resp 31 H 06/01/17 18:00 BP 129/89 05/31/17 22:00 Pulse Ox 94 L 06/01/17 18:00 Intake & Output 06/01/17 06/01/17 06/02/17 06:59 18:59 06:59 Intake Total 510 535 Output Total 595 925 Balance -85 -390 Weight 96.7 kg 96.7 kg Intake: IV 150 245 Potassium Chloride 20 meq 50 65 In Water For Injection 1 100ml.bag @ 50 mls/hr IVPB ONCE ONE Rx#: [id number] Sodium Chloride 0.9% 1, 100 80 000 ml @ 50 mls/hr IV . Q20H [facility] Rx#:[id number] cefTRIAXone 2,000 mg In 100 Sodium Chloride 0.9% 100 ml @ 100 mls/hr IVPB Q24HR [facility] Rx#:[id number] Intake, IV Titration 50 Amount Esomeprazole 20 mg In 50 Sodium Chloride 0.9% 50 ml @ 100 mls/hr IVPB DAILY [facility] Rx#:[id number] Oral 360 240 Output: Chest Tube Drainage 30 150 Chest Tube Right 30 150 Posterior Chest Urine 565 775 Other: Voiding Method Indwelling Catheter Indwelling Catheter # Bowel Movements 1 ABP, PAP, CO, CI - Last Documented Arterial Blood Pressure 129/70 - Labs CBC & Chem 7: 06/01/17 04:10 06/01/17 17:00 Labs: Abnormal Lab Results - Last 24 Hours (Table) 05/31/17 06/01/17 06/01/17 Range/Units 21: 04:10 04:10 WBC 12.3 H (3.8-10.6) k/uL Neutrophils # 10.8 H (1.3-7.7) k/uL Lymphocytes # 0.7 L (1.0-4.8) k/uL Chloride 111 H (98-107) mmol/L Creatinine 0.50 L (0.66-1.25) mg/dL Glucose 118 H (74-99) mg/dL POC Glucose (mg/dL) 120 H (75-99) mg/dL Calcium 7.9 L (8.4-10.2) mg/dL 06/01/17 06/01/17 06/01/17 Range/Units 07:06 12:21 17:46 WBC (3.8-10.6) k/uL Neutrophils # (1.3-7.7) k/uL Lymphocytes # (1.0-4.8) k/uL Chloride (98-107) mmol/L Creatinine (0.66-1.25) mg/dL Glucose (74-99) mg/dL POC Glucose (mg/dL) 106 H 118 H 162 H (75-99) mg/dL Calcium (8.4-10.2) mg/dL Microbiology - Last 24 Hours (Table) 05/28/17 12:55 Anaerobic Culture - Final Pleural Fluid 05/26/17 09:47 Blood Culture - Final Blood No Growth after 144 hours 05/26/17 09:47 Blood Culture - Final Blood No Growth after 144 hours 05/28/17 12:55 Gram Stain - Final Pleural Fluid Body Fluid Culture - Final
[2017-06-01] MEDS: DILTIAZEM 125 MG in SODIUM CHLORIDE 0.9% 100 ML IV SCH (19:36)
[2017-06-01] MEDS: POTASSIUM CHLORIDE 10 MEQ in WATER FOR INJECTION 1 100ML.BAG IVPB SCH ×2 (19:42→21:02)
[2017-06-01] MEDS ORDERED: ESOMEPRAZOLE 40 MG VIAL ONE (20:16)
[2017-06-01 20:49] LABS: Glucose,Whole Blood 143 mg/dL (75-99)
[2017-06-01] MEDS: amLODIPine 5 MG TAB PO SCH (21:02)
[2017-06-02] MEDS: methylPREDNISolone SOD SUCCI 40 MG/ML 1 ML VIAL IV SCH ×4 (00:28→23:38)
[2017-06-02] MEDS: LORazepam 2 MG/ML SYRINGE IV PRN (00:28)
[2017-06-02] MEDS: DILTIAZEM 125 MG in SODIUM CHLORIDE 0.9% 100 ML IV SCH ×2 (02:15→13:39)
[2017-06-02 04:38] LABS: Basophils % (A) 0 %; CH 30.8; CHCM 32.3; Eosinophils % (A) 0 %; HCT 40.1 % (39.0-53.0); HDW 2.43; HGB 13.3 gm/dL (13.0-17.5); Luc # (Auto) 0.05; Luc % (Auto) 0; Lymphocytes # (A) 0.5 k/uL (1.0-4.8); Lymphocytes % (A) 5 %; MCH 31.8 pg (25.0-35.0); MCHC 33.2 g/dL (31.0-37.0); MCV 95.7 fL (80.0-100.0); Mean Platelet Volume 7.5; Monocytes # (A) 0.2 k/uL (0-1.0); Monocytes % (A) 2 %; Neutrophils # (A) 10.1 k/uL (1.3-7.7); Neutrophils % (A) 93 %; RBC 4.19 m/uL (4.30-5.90); RDW 12.8 % (11.5-15.5); WBC 10.9 k/uL (3.8-10.6); WBC (Perox) 11.54
[2017-06-02 04:50] LABS: Anion Gap 10 mmol/L; Blood Urea Nitrogen 23 mg/dL (9-20); Calcium 8.2 mg/dL (8.4-10.2); Carbon Dioxide 23 mmol/L (22-30); Chloride 111 mmol/L (98-107); Glucose 146 mg/dL (74-99); Magnesium 2.3 mg/dL (1.6-2.3); Non-African American GFR(MDRD) >60 (>60 ml/min/1.73 sqM); Phosphorous 3.5 mg/dL (2.5-4.5); Potassium 3.9 mmol/L (3.5-5.1); Sodium 144 mmol/L (137-145)
[2017-06-02] MEDS ORDERED: POTASSIUM CHLORIDE ER 20 MEQ TAB.ER PO SCH (06:00)
--- NOTE | 2017-06-02 07:24 | PN ---
Mr. Araujo is a 52-year-old gentleman who was admitted to the hospital with chest pain and EKG evidence of pericarditis. patient had pleural pericarditis and pneumonia picture. The patient also had delirium tremens from alcohol withdrawal. Patient is still confused. Apparently he has been treated with antibiotics and developed some maculopapular rash, which is felt to be probably secondary to cephalosporins. From cardiac standpoint the patient is maintaining a blood pressure of 140 to 145 over 70 to 80. Respirations 18, heart rate is about 100. Neck is supple. Heart exam showed first and second heart sounds heard. No gallops. Pericardial rub heard. Abdomen is soft. Extremities: No significant edema. Lab values today showed white count of 12,000, hemoglobin is normal. Electrolytes are within normal limits. BUN and creatinine are normal. FINAL IMPRESSION: 1. Pneumonia. 2. Pleural pericarditis. 3. Delirium. PLAN: Will continue with the current medical therapy. From cardiac standpoint he is still stable. He still has some pericardial drainage. Other recommendations depend upon clinical course. MILA
[2017-06-02] MEDS: IPRATROPIUM-ALBUTEROL 3 ML NEB INHALATION SCH ×4 (07:42→19:37)
[2017-06-02 07:48] LABS: Glucose,Whole Blood 145 mg/dL (75-99)
--- NOTE | 2017-06-02 08:08 | XR ---
EXAMINATION TYPE: XR chest 1V portable DATE OF EXAM: 06/02/2017 HISTORY: Shortness of breath. COMPARISON: 06/01/2017 TECHNIQUE: Single view of the chest is submitted. FINDINGS: Demonstrated are scattered senescent parenchymal change. There is persistent right perihilar and right basilar infiltrate. Pulmonary venous congestion has imp roved since prior examination. The heart is stable. Hilar and mediastinal structures are within normal limits. Degenerative changes are seen of the dorsal spine. IMPRESSION: 1. There is persistent right perihilar and right basilar infiltrate. Pulmonary venous congestion has improved since prior examination.
[2017-06-02] MEDS: cefTRIAXone 2,000 MG in SODIUM CHLORIDE 0.9% 100 ML IVPB SCH (08:13)
[2017-06-02] MEDS: INSULIN LISPRO (humaLOG) 300 UNIT/3 ML VIAL SQ SCH ×4 (08:13→20:36)
[2017-06-02] MEDS: METOPROLOL TARTRATE 25 MG TAB PO SCH (08:14)
[2017-06-02] MEDS: ENOXAPARIN 40 MG/0.4 ML SYRINGE SQ SCH (08:14)
[2017-06-02] MEDS: ATORVASTATIN 40 MG TAB PO SCH (08:14)
[2017-06-02] MEDS: CLOPIDOGREL 75 MG TAB PO SCH (08:14)
[2017-06-02] MEDS: ASPIRIN 81 MG CHEW PO SCH (08:14)
--- NOTE | 2017-06-02 09:50 | P.PN ---
Subjective Principal diagnosis: Large pericardial effusion with tamponade physiology with cultures growing Streptococcus pneumoniae, acute ST elevation myocardial infarction involving the apical-lateral wall of the left ventricle, history of alcohol abuse with active delirium tremens on CIWA protocol, history of chronic nicotine dependence , and chronic obstructive pulmonary disease. Acute hypoxic respiratory failure with development of diffuse pulmonary infiltrates, possible ARDS, requiring mechanical ventilation. POD #5 bronchoscopy with alveolar lavage. Pleural effusion, POD #5 right pleural chest tube placement POD #7 bedside echo guided pericardiocentesis and insertion of pericardial drain POD #7 left heart catheterization, coronary angiogram with placement of stent to his left anterior descending artery by Dr. Radha Gonzales. Patient is currently sitting up in bed in no acute distress. Patient still confused but less so than yesterday. Sitter at bedside. Pericardial drain removed yesterday. Intrapleural TPA given through pleural chest tube yesterday. Objective - Vital Signs Vital signs: Vital Signs Temp 98.6 F 06/02/17 04:00 Pulse 96 06/02/17 07:59 Resp 25 H 06/02/17 07:00 BP 129/89 05/31/17 22:00 Pulse Ox 98 06/02/17 07:44 Intake & Output 06/01/17 06/02/17 06/02/17 18:59 06:59 18:59 Intake Total 535 1456.583 10 Output Total 925 760 55 Balance -390 696.583 -45 Weight 96.7 kg 95.6 kg Intake: IV 245 300 10 Potassium Chloride 10 meq 200 In Water For Injection 1 100ml.bag @ 100 mls/hr IVPB Q1H [facility] Rx#: [id number] Potassium Chloride 20 meq 65 In Water For Injection 1 100ml.bag @ 50 mls/hr IVPB ONCE ONE Rx#: [id number] Sodium Chloride 0.9% 1, 80 100 10 000 ml @ 50 mls/hr IV . Q20H [facility] Rx#:[id number] cefTRIAXone 2,000 mg In 100 Sodium Chloride 0.9% 100 ml @ 100 mls/hr IVPB Q24HR [facility] Rx#:[id number] Intake, IV Titration 50 76.583 Amount Diltiazem 125 mg In 76.583 Sodium Chloride 0.9% 100 ml @ 10 MG/HR 10 mls/hr IV .[id number] [facility] Rx#: [id number] Esomeprazole 20 mg In 50 Sodium Chloride 0.9% 50 ml @ 100 mls/hr IVPB DAILY [facility] Rx#:[id number] Oral 240 1080 Output: Chest Tube Drainage 150 160 10 Chest Tube Right 150 160 10 Posterior Chest Urine 775 600 45 Other: Voiding Method Indwelling Catheter Indwelling Catheter # Bowel Movements 1 ABP, PAP, CO, CI - Last Documented Arterial Blood Pressure 142/68 - Constitutional General appearance: Present: cooperative, no acute distress - Respiratory Details: Lungs sounds coarse bilaterally. Respirations even, nonlabored. Currently on 3 L nasal cannula with oxygen saturation 99%. Right pleural chest tube to -20 cm wall suction, 130 mL serous drainage overnight, 300 mL last 24 hours. No air leak present. - Cardiovascular Details: S1, S2 present. Regular rate and rhythm, normal sinus rhythm on telemetry. Pericardial drain removed yesterday. - Gastrointestinal Gastrointestinal Comment(s): Abdomen soft, nontender, nondistended. Active bowel sounds 4 quadrants. Tolerating diet. - Genitourinary Genitourinary Comment(s): Merino present draining clear, yellow urine. 45-60 mL/h overnight. - Integumentary Integumentary Comment(s): Anterior chest pericardial drain site covered with dressing, minimal drainage on dressing. - Musculoskeletal Musculoskeletal: Present: strength equal bilaterally - Psychiatric Psychiatric Comment(s): Alert to [facility] but thinks he's in the psychiatric unit, states 1965. Cooperative with staff, sitter at the bedside. - Allied health notes Allied health notes reviewed: nursing - Labs CBC & Chem 7: 06/02/17 04:24 06/02/17 04:24 Labs: Abnormal Lab Results - Last 24 Hours (Table) 06/01/17 06/01/17 06/01/17 Range/Units 12:21 17:46 20:48 WBC (3.8-10.6) k/uL RBC (4.30-5.90) m/uL Neutrophils # (1.3-7.7) k/uL Lymphocytes # (1.0-4.8) k/uL Chloride (98-107) mmol/L BUN (9-20) mg/dL Creatinine (0.66-1.25) mg/dL Glucose (74-99) mg/dL POC Glucose (mg/dL) 118 H 162 H 143 H (75-99) mg/dL Calcium (8.4-10.2) mg/dL 06/02/17 06/02/17 06/02/17 Range/Units 04:24 04:24 07:46 WBC 10.9 H (3.8-10.6) k/uL RBC 4.19 L (4.30-5.90) m/uL Neutrophils # 10.1 H (1.3-7.7) k/uL Lymphocytes # 0.5 L (1.0-4.8) k/uL Chloride 111 H (98-107) mmol/L BUN 23 H (9-20) mg/dL Creatinine 0.50 L (0.66-1.25) mg/dL Glucose 146 H (74-99) mg/dL POC Glucose (mg/dL) 145 H (75-99) mg/dL Calcium 8.2 L (8.4-10.2) mg/dL Microbiology - Last 24 Hours (Table) 05/28/17 12:55 Anaerobic Culture - Final Pleural Fluid 05/26/17 09:47 Blood Culture - Final Blood No Growth after 144 hours 05/26/17 09:47 Blood Culture - Final Blood No Growth after 144 hours 05/28/17 12:55 Gram Stain - Final Pleural Fluid Body Fluid Culture - Final - Imaging and Cardiology Chest x-ray: report reviewed, image reviewed Assessment and Plan (1) COPD (chronic obstructive pulmonary disease) Status: Acute (2) Nicotine dependence Status: Acute (3) Alcoholism Status: Acute (4) Pericardial effusion Status: Acute (5) ST elevation myocardial infarction (STEMI) Status: Acute (6) Acute hypoxemic respiratory failure Status: Acute Plan: 1. Pericardial drain removed yesterday. 2. Will monitor chest tube output. 3. Continue antibiotics per infectious disease recommendations. 4. Continue aspirin, Lipitor, Plavix, beta ira per cardiology services. 5. GI/DVT prophylaxis. 6. Daily labs, x-rays. 7. Will continue to see as needed. Time with Patient: Greater than 30
[2017-06-02] MEDS ORDERED: ALTEPLASE 5 MG in SODIUM CHLORIDE 0.9% 50 ML IRRIGATION ONE ×5 (10:36→10:45)
--- NOTE | 2017-06-02 10:36 | P.PN ---
Subjective 52-year-old gentleman, known history of alcoholism, presented to the hospital because of increased chest pain. He was found to have ST segment elevation myocardial infarction. The patient was taken to the [facility] on an emergent basis and he had stents placed into his LAD for a 70% LAD lesion. He was also found to have a large pericardial effusion and leukocytosis. He was seen by surgery and he underwent a bedside pericardiocentesis and total of 380 mL of fluid was drained from the pericardial space. Initial cultures are growing up hemolytic strep and the patient is or the being covered with a combination of Rocephin and vancomycin. Note that his initial chest x-ray on admission showed a right upper lobe consolidation and subsequent x-ray showed diffuse lateral pulmonary infiltrates typical of an underlying ARDS. The patient also went into delirium tremens. Overnight she had become quite a bit agitated and he had required a total of 8 mg of Ativan throughout the night. This morning, the patient is lethargic, and 2. restraints, confused and sometimes agitated. He is on a BiPAP at a pressure of 12/5 cm of water with an FiO2 of 100%. Earlier he was on a percent and he had to be brought up to 100% to maintain a saturation above 90%. He has good pulses in all 4 extremities. He is producing approximately 50 mL an hour. He is on normal saline at the rate of 75 mL an hour. White cell count remains elevated at 28.6. He is on no pressors for now. No significant electrode abnormalities. No acidosis. Echocardiogram that was done earlier showed a preserved LV function. The patient has a pericardial tube in place and total amount of output that was drained this morning is around 125, brownish to yellowish pericardial fluid. Note that the fluid analysis was done earlier showed elevated LDH and protein. White cell count is also elevated at 44,000 with 92% on a nuclear white cells. On 05/28/2017 the patient remains intubated on a mechanical ventilator. He is sedated with Diprivan and is calm and comfortable. Spiked a high rate of the prevent, the patient is still easily arousable. Hemodynamically stable on no pressors. He remains on a mechanical ventilator on assist control mode at the rate of 24, tidal volume 500, FiO2 of 50% and a PEEP of 8. The blood gases from this morning showed a pH of 7.42 with a pCO2 of 36 and pO2 of 69. I reviewed the chest x-ray from today that shows no interval change and there is diffuse breath and pulmonary infiltrates and ET tube is in a good location. The CAT scan of the chest that was done yesterday showed development of a loculated pleural effusion on the right more so a large pocket sitting in the posterior aspect of the right hemithorax which I think it's accessible for percutaneous drainage and for that reason I discussed this case with interventional radiology and will going to proceed with this procedure despite the fact that the patient on a combination of aspirin and Plavix. I think the benefits of this procedure will outweigh the risk. Meanwhile a bronchoscopy and the bronchioloalveolar lavage was done yesterday and the cultures are all negative thus far. The patient's pericardial effusion culture showed strep pneumonia which is sensitive to all antibiotics and the patient complications on a combination of vancomycin and Rocephin. Vancomycin may be ultimately discontinued and this will be discussed further with infectious disease. He will be started on tube feeds today. He is otherwise doing well and there has been no other issues over the past 24 hours. On 05/29/2017 the patient is being seen in the follow-up. The patient remains intubated on a mechanical ventilator and sedated and calm and comfortable. As mentioned earlier, there was a concern of a empyema. Based on that I talked interventional radiology and were able to drain the loculated pleural fluid on the right. The fluid was nonpurulent. The white cell count within the fluid was nonelevated and the cultures still pending for now. The procedure was not the bedside successfully a total of 600 mL of fluid was aspirated from the right lung. At this point in time the right-sided chest tube is connected to Pleur-evac and is not draining actively. The chest x-ray however shows marked improvement in the pneumonia and in the loculated pleural fluid that was seen on the right. ET tube is sitting high in the trachea. The patient is an assist -control mode at the rate of 24, tidal volume of 500, FiO2 of 50% and a PEEP of 8. Morning blood gases showed a pH of 7.41 with a pCO2 of 38 and pO2 of 152 and there has been marked improvement in his oxygenation. The only positive cultures from his pericardial fluid which is strep pneumo and the patient on high-dose Rocephin. Vancomycin was discontinued by infectious disease as the strep pneumo has been sensitive. He was dynamically stable. Tolerating his tube feeds. Was given a sedation holiday this morning and he was able to wake up and follow commands appropriately. The pericardial tube is not draining at this point. On 05/30/2017 I'm seeing this patient in follow-up. The patient is doing well. I reviewed the chest x-ray and there is some residual infiltration of however they x-ray findings have essentially improved and the patient is improving in terms of his pneumonia. The right-sided pleural effusion was also drained percutaneously with a smaller chest tube by interventional radiology. The fluid cultures of been all negative. The blood culture been negative. The pericardial effusion was positive for Streptococcus pneumonia. The patient is on IV Rocephin 2 g every 24 hours. The patient has a pericardial catheter in place and yesterday the drainage was only 20-30 mL, none for today. This morning, the patient was taken off sedation. He woke up appropriately. Unable to complete the. He has breathing trial as the patient was becoming more and more agitated and anxious and his blood pressure was fluctuating and he was becoming tachypneic. At that point I noted the patient had adequate strength an adequate gag and cough reflex. He is at which her breathing index was also reasonable. At that point I decide to extubate this patient without giving him is participating trial. He extubated successfully and currently is on 5 L oxygen by nasal cannula. This was subsequently weaned down to 3 L. Hemodynamically stable. No chest pain. No other significant issues overnight. The patient is somewhat lethargic over he is still recovering from his underlying sedation. No tremors. No agitation. No signs of delirium tremens at this point. On 05/31/2017 I'm seeing this patient in follow-up. As mentioned earlier, the patient was extubated yesterday without any major difficulties. At the later stage the patient started having symptoms of delirium. He was on and off confused throughout the night and he sees a total of 6 mg of IV Ativan for delirium tremens. This morning, he is not oriented to time and place. His multiple of her extremities. No headache. The antibiotics are still unchanged and the patient is on high dose Rocephin regarding pneumococcal pneumonia and acute pneumococcal pericarditis. The pericardial catheter has drained 80 mL yesterday and there is no active drainage from the right-sided chest tube. Chest x-ray still showing breath and pulmonary infiltrates although improved compared to the initial chest x-ray from May 28. The patient is resting comfortably in bed. No signs of respiratory distress. Active issues for now remains his altered mentation and the delirium tremens. Hemodynamically stable. On 06/01/2017 the patient remains extubated. The patient remains in the intensive care unit. Mentation is still impaired and the patient is still delirious and he is not fully recovered from his delirium tremens. He is not agitated at this point. He had received a total of 8 mg of Ativan since yesterday evening. He is breathing comfortably in bed. There pericardial tube has drained 80 mL today and I reviewed the CAT scan of the chest that showed a loculated right-sided pleural effusion measuring 9.5 x 4.6 x 6.4 cm in size and this is obviously smaller compared to the previous measurement. Additional smaller loculation was also seen. Tiny free flowing effusion is also present bilaterally. Several lymph nodes within the mediastinum largest being 13 mm in size and there is not a 14 mm right paratracheal lymph node also. The patient made on IV Rocephin however today he has developed a maculopapular rash over the anterior chest and back area which could be potentially an ALLERGIC reaction. Cephalosporin ALLERGY needs to be considered. Hemodynamically stable. Producing adequate amount of urine output. He is not eating much over his swallowing is medication. White cell count is at 12.3. The rest of the electrodes are within normal limits. No new cultures are available at this point. On 05/30/2017 the patient remains extubated. The patient is still confused although he seems to be much less agitated and not requiring as much Ativan. He received only 2 mg of Ativan yesterday. Much more responsive today. Not diaphoretic and resting comfortably in bed. Oxygen has been taken off and his pulse ox on room air is 95%. Note that ultimately placed was applied to these chest tube yesterday and there was a drainage of 300 mL of pleural fluid post unclamping of the chest tube. The pericardial catheter has been removed. The patient is on IV Rocephin. His rash has subsided. He is on IV Solu-Medrol. Hemodynamically stable. White cell count remains low. He remains afebrile. He is not eating as much over he can swallow his pills. He went into a episode of atrial fibrillation yesterday and he quite Cardizem bolus and drip and currently is back to normal sinus rhythm and he is on Toprol 25 mg by mouth 3 times a day. Physical therapy will be involved in his case today. Objective - Vital Signs Vital signs: Vital Signs Temp 99.8 F H 06/02/17 08:00 Pulse 154 H 06/02/17 09:00 Resp 12 06/02/17 09:00 BP 129/89 05/31/17 22:00 Pulse Ox 92 L 06/02/17 09:00 Intake & Output 06/01/17 06/02/17 06/02/17 18:59 06:59 18:59 Intake Total 535 1456.583 490 Output Total 925 760 200 Balance -390 696.583 290 Weight 96.7 kg 95.6 kg 95.6 kg Intake: IV 245 300 130 Potassium Chloride 10 meq 200 In Water For Injection 1 100ml.bag @ 100 mls/hr IVPB Q1H [facility] Rx#: [id number] Potassium Chloride 20 meq 65 In Water For Injection 1 100ml.bag @ 50 mls/hr IVPB ONCE ONE Rx#: [id number] Sodium Chloride 0.9% 1, 80 100 30 000 ml @ 50 mls/hr IV . Q20H [facility] Rx#:[id number] cefTRIAXone 2,000 mg In 100 100 Sodium Chloride 0.9% 100 ml @ 100 mls/hr IVPB Q24HR [facility] Rx#:[id number] Intake, IV Titration 50 76.583 Amount Diltiazem 125 mg In 76.583 Sodium Chloride 0.9% 100 ml @ 10 MG/HR 10 mls/hr IV .[id number] [facility] Rx#: [id number] Esomeprazole 20 mg In 50 Sodium Chloride 0.9% 50 ml @ 100 mls/hr IVPB DAILY [facility] Rx#:[id number] Oral 240 1080 360 Output: Chest Tube Drainage 150 160 10 Chest Tube Right 150 160 10 Posterior Chest Urine 775 600 190 Other: Voiding Method Indwelling Catheter Indwelling Catheter Indwelling Catheter # Bowel Movements 1 ABP, PAP, CO, CI - Last Documented Arterial Blood Pressure 139/64 - Exam T Head exam was generally normal. There was no scleral icterus or corneal arcus. Mucous membranes were moist..Neck was supple and without jugular venous distension, thyromegaly, or carotid bruits. Carotids were easily palpable bilaterally. There was no adenopathy. Orogastric and oral tracheal tube are both in place.Head exam was generally normal. There was no scleral icterus or corneal arcus. Mucous membranes were moist. Lungs sounds are diminished bilaterally. Breath sounds are equal and symmetrical however. No wheezes. The right-sided chest tube is still in place. This is connected to a Pleur- evac. Heart sounds are regular, positive S1-S2 and there is a friction rub can be appreciated over the anterior chest wall. The abdomen was soft, non-tender, and without masses, organomegaly, or appreciable enlargement of the abdominal aorta.Examination of the extremities revealed easily palpable radial, femoral and pedal pulses. There was no cyanosis, clubbing or edema. Neurologically , the patient is moving all 4 extremities. Periodic confusion is still seen. No agitation at this point and is resting comfortably in bed. - Labs CBC & Chem 7: 06/02/17 04:24 06/02/17 04:24 Labs: Abnormal Lab Results - Last 24 Hours (Table) 06/01/17 06/01/17 06/01/17 Range/Units 12:21 17:46 20:48 WBC (3.8-10.6) k/uL RBC (4.30-5.90) m/uL Neutrophils # (1.3-7.7) k/uL Lymphocytes # (1.0-4.8) k/uL Chloride (98-107) mmol/L BUN (9-20) mg/dL Creatinine (0.66-1.25) mg/dL Glucose (74-99) mg/dL POC Glucose (mg/dL) 118 H 162 H 143 H (75-99) mg/dL Calcium (8.4-10.2) mg/dL 06/02/17 06/02/17 06/02/17 Range/Units 04:24 04:24 07:46 WBC 10.9 H (3.8-10.6) k/uL RBC 4.19 L (4.30-5.90) m/uL Neutrophils # 10.1 H (1.3-7.7) k/uL Lymphocytes # 0.5 L (1.0-4.8) k/uL Chloride 111 H (98-107) mmol/L BUN 23 H (9-20) mg/dL Creatinine 0.50 L (0.66-1.25) mg/dL Glucose 146 H (74-99) mg/dL POC Glucose (mg/dL) 145 H (75-99) mg/dL Calcium 8.2 L (8.4-10.2) mg/dL Microbiology - Last 24 Hours (Table) 05/28/17 12:55 Anaerobic Culture - Final Pleural Fluid 05/26/17 09:47 Blood Culture - Final Blood No Growth after 144 hours 05/26/17 09:47 Blood Culture - Final Blood No Growth after 144 hours 05/28/17 12:55 Gram Stain - Final Pleural Fluid Body Fluid Culture - Final Assessment and Plan Plan: Assessment 1 acute hypoxic respiratory failure with development of diffuse breath and pulmonary infiltrates. CAT scan of the chest was reviewed and the findings are consistent with diffuse bilateral pneumonia with loculated right-sided pleural effusion with possibly empyema versus a complicated loculated parapneumonic fluids. A small bore chest tube was inserted to the right hemithorax and total of 600 mL the pleural fluid was aspirated. The cultures been negative at this point. While, there has been significant improvement in the pulmonary infiltration and oxygenation on today's evaluation. The patient remains intubated on a mechanical ventilator. On 05/30/2017, the patient was taken off sedation and he demonstrated adequate ability to maintain his airways patent and he had adequate neurologic function with the patient woke up and he was following commands moving all 4 extremities without any limitation. At that point the decision was to extubate this patient and this was a successful extubation. Currently is on 3 L of oxygen by nasal cannula. On 05/31/2017, the patient remains extubated. A repeat CAT scan of the chest will be obtained to follow-up on the loculated pleural effusion and decided the patient may benefit from an intrapleural TPA. We'll keep the pericardial catheter in place as long as there is still on and off drainage as the patient has drained approximately 80 mL yesterday. The patient is extubated. The patient on IV Rocephin. On 06/01/2017, the CAT scan of the chest was reviewed and the smaller chest tube is still in a good location however it is not draining a lot. Based on this, alteplase will be infused to enhance further drainage from the loculated right-sided pleural effusion. On 05/23/2017 chest x-ray findings are essentially stable. Nevertheless, there has been improved drainage from his right lung and I would consider repeating the alteplase today to improve the drainage and hopefully evacuate that the loculated right-sided pleural effusion. As such the alteplase will be repeated today and we'll monitor the output and repeat chest x-ray in the morning. 2 acute STEMI status post emergent cardiac catheterization and stenting of the LAD 3 acute infectious pneumococcal pericarditis, with a pericardial effusion/ infected pericardial fluid with cultures growing strep pneumo, status post percutaneous drainage of the pericardial effusion at the bedside and the patient has a triple lumen catheter placed within the pericardium. The output from the pericardial tube is minimal at this point, and the tube was pulled out yesterday by CT surgery. 4 alcoholism 5 delirium tremens , improving 6 Maculopapular rash, resolved with Solu-Medrol 7 paroxysmal atrial fibrillation, current rhythm is sinus on beta blockers Plan We'll keep the patient in intensive care unit. We'll monitor the mentation. We 'll give Ativan as needed for agitation and symptoms of the delirium tremens. Will infuse undergoes alteplase into the right-sided chest tube and monitor the output and repeat chest x-ray in the morning. Continue IV Rocephin. Continue IV Solu-Medrol for another 24 hours. Physical therapy. Bedside sitter. The extremities is improving. The patient is much more alert and awake although somewhat confused still. No agitation. No restlessness. No sweating. No tremors. No headaches. Would advance diet. Will involve physical therapy. Monitor the cardiac status. We'll follow. The patient is to stay in ICU for 24 hours.
[2017-06-02 12:08] LABS: Glucose,Whole Blood 157 mg/dL (75-99)
--- NOTE | 2017-06-02 14:54 | P.PN ---
Subjective Mr. Araujo is a 52-year-old male with a past medical history of chronic low back pain, hypertension, alcohol abuse and nicotine dependence coming into the hospital with a chief complaint of chest pain. Patient has history of chronic low back pain and pain of his neck that has been going on but for the past 5 days his symptoms have worsened. Patient's chest pain got worse and he was complaining of 10 out of 10 and so called the EMS. The paramedics did perform an EKG which was suspicious for ST elevation PA. He was given aspirin and nitroglycerin and transferred to [facility] for further evaluation. So the visual education teacher patient access manager Dr. GRICELDA Gonzales was informed, who did an emergent cardiac catheterization. The patient had a stent placed in his LAD and was also noted to have a large pericardial effusion. So CT surgeon Dr. Multani came in and did a pericardiocentesis. There was 380 mL of fluid drained out. And the patient has been transferred to the ICU for further management and care. On 05/26/17- on the night of 05/26 the patient became very combative and was trying to put all his lines and the pericardial catheter. The patient was placed on a CIWA scale and given 10 mg of Ativan without much improvement in his symptoms. So eventually he was given Haldol after which the patient did calm down. Around 230 ml of fluid was drained from the pericardium. On 05/27/17 - patient was pretty confused, agitated and was on restraints , he was placed on BiPAP and as he was desaturating. Dr. Angel had to intubate the patient around 10 AM today due to impending respiratory failure due to ARDS. Patient also had a bronchoscopy done by Dr. Angel this morning. Patient's pericardial fluid came back to be positive for Streptococcus and he has been started on ceftriaxone. On 05/28/2017- patient still remains intubated. He is on a Levophed drip. Sedated on propofol. Patient had thoracentesisdone today and 400 mL of fluid was drained. And the chest tube was placed. 05/29/2017 Patient failed a weaning trial this morning. With sedation holiday patient is able to move all his 4 extremities and follows simple commands. Cultures from bronchial washings showed no growth for the past 24 hours. On 05/30/17 - pt has been extubated successfully and is saturating above 90 % on 3 lt of nasal canula. on 05/31/17 Pt. is confused but able to answer slowly. resp status improved. still on chest tube and pericardial drain tube. 06/01/17 pt is confused able to answer questions no overnight events reported tries to get out of bed ROS_ deferred due to pt's confusion 06/02/2017 Patient is confused however is able to answer some questions appropriately Denies having any additional problems Overnight the patient had changed into atrial fibrillation is currently maintained on a Cardizem drip - Exam GEN. APPEARANCE: no acute distress. Extubted HEAD EXAM: Atraumatic EYE EXAM: No pallor no icterus ENT EXAM: ET tube in place NECK EXAM: No carotid bruit. No thyromegaly RESPIRATORY EXAM: Diminished breath sounds bilaterally. Coarse breath sounds in all lung [place] with crackles. Right chest tube in place. CARDIOVASCULAR EXAM: Tachycardia. Irregularly irregular S1 and S2 heard. GI/ABDOMINAL EXAM: Soft nontender. No guarding or rigidity. EXTREMITIES EXAM: No cyanosis, no swelling, no edema. NEUROLOGICAL EXAM: confused SKIN EXAM: warm to touch. No rash. Assessment and Plan Plan: ASSESSMENT Septic shock Streptococcal pericarditis Acute hypoxic respiratory failure secondary to ARDS Pneumonia right upper lobe ST elevation PA status post stenting of LAD Pericardial effusion Alcohol withdrawal delirium tremens Chronic liver disease Chronic alcohol abuse Chronic nicotine dependence New-onset atrial fibrillation with rapid ventricular rate PLAN Continue Cardizem drip Patient will be given 50 mg of Seroquel bedtime continue with full ICU support delirium is still noted chest tube management per CTS ABX DVT prophylaxis Objective - Vital Signs Vital signs: Vital Signs Temp 98.0 F 06/02/17 12:00 Pulse 87 06/02/17 13:00 Resp 32 H 06/02/17 13:00 BP 129/89 05/31/17 22:00 Pulse Ox 95 06/02/17 13:00 Intake & Output 06/01/17 06/02/17 06/02/17 18:59 06:59 18:59 Intake Total 535 5486.903 9396.083 Output Total 925 760 415 Balance -390 696.583 589.083 Weight 96.7 kg 95.6 kg 95.6 kg Intake: IV 245 300 170 Potassium Chloride 10 meq 200 In Water For Injection 1 100ml.bag @ 100 mls/hr IVPB Q1H [facility] Rx#: [id number] Potassium Chloride 20 meq 65 In Water For Injection 1 100ml.bag @ 50 mls/hr IVPB ONCE ONE Rx#: [id number] Sodium Chloride 0.9% 1, 80 100 70 000 ml @ 50 mls/hr IV . Q20H [facility] Rx#:[id number] cefTRIAXone 2,000 mg In 100 100 Sodium Chloride 0.9% 100 ml @ 100 mls/hr IVPB Q24HR [facility] Rx#:[id number] Intake, IV Titration 50 76.583 114.083 Amount Diltiazem 125 mg In 76.583 114.083 Sodium Chloride 0.9% 100 ml @ 10 MG/HR 10 mls/hr IV .[id number] [facility] Rx#: [id number] Esomeprazole 20 mg In 50 Sodium Chloride 0.9% 50 ml @ 100 mls/hr IVPB DAILY [facility] Rx#:[id number] Oral 240 1080 720 Output: Chest Tube Drainage 150 160 50 Chest Tube Right 150 160 50 Posterior Chest Urine 775 600 365 Other: Voiding Method Indwelling Catheter Indwelling Catheter Indwelling Catheter # Bowel Movements 1 ABP, PAP, CO, CI - Last Documented Arterial Blood Pressure 142/68 - Labs CBC & Chem 7: 06/02/17 04:24 06/02/17 04:24 Labs: Abnormal Lab Results - Last 24 Hours (Table) 06/01/17 06/01/17 06/02/17 Range/Units 17:46 20:48 04:24 WBC 10.9 H (3.8-10.6) k/uL RBC 4.19 L (4.30-5.90) m/uL Neutrophils # 10.1 H (1.3-7.7) k/uL Lymphocytes # 0.5 L (1.0-4.8) k/uL Chloride (98-107) mmol/L BUN (9-20) mg/dL Creatinine (0.66-1.25) mg/dL Glucose (74-99) mg/dL POC Glucose (mg/dL) 162 H 143 H (75-99) mg/dL Calcium (8.4-10.2) mg/dL 06/02/17 06/02/17 06/02/17 Range/Units 04:24 07:46 12:07 WBC (3.8-10.6) k/uL RBC (4.30-5.90) m/uL Neutrophils # (1.3-7.7) k/uL Lymphocytes # (1.0-4.8) k/uL Chloride 111 H (98-107) mmol/L BUN 23 H (9-20) mg/dL Creatinine 0.50 L (0.66-1.25) mg/dL Glucose 146 H (74-99) mg/dL POC Glucose (mg/dL) 145 H 157 H (75-99) mg/dL Calcium 8.2 L (8.4-10.2) mg/dL Microbiology - Last 24 Hours (Table) 05/28/17 12:55 Anaerobic Culture - Final Pleural Fluid 05/26/17 09:47 Blood Culture - Final Blood No Growth after 144 hours 05/26/17 09:47 Blood Culture - Final Blood No Growth after 144 hours
[2017-06-02] MEDS: METOPROLOL TARTRATE 50 MG TAB PO SCH ×2 (16:37→22:06)
[2017-06-02] MEDS: ESOMEPRAZOLE 20 MG in SODIUM CHLORIDE 0.9% 50 ML IVPB SCH (16:38)
[2017-06-02 18:14] LABS: Glucose,Whole Blood 141 mg/dL (75-99)
[2017-06-02] MEDS: QUEtiapine 50 MG TAB PO SCH (20:25)
[2017-06-02] MEDS: amLODIPine 5 MG TAB PO SCH (20:25)
[2017-06-02 20:45] LABS: Glucose,Whole Blood 184 mg/dL (75-99)
[2017-06-02 22:03] LABS: Glucose,Whole Blood 104 mg/dL (75-99)
[2017-06-03] MEDS: LORazepam 2 MG/ML SYRINGE IV PRN ×3 (01:59→07:20)
[2017-06-03] MEDS: DILTIAZEM 125 MG in SODIUM CHLORIDE 0.9% 100 ML IV SCH (02:02)
[2017-06-03] MEDS: HALOPERIDOL LACTATE 5 MG/ML 1 ML VIAL IM PRN (02:57)
[2017-06-03 07:39] LABS: Basophils % (A) 0 %; CH 31.4; CHCM 32.8; Eosinophils % (A) 0 %; HGB 13.4 gm/dL (13.0-17.5); Luc # (Auto) 0.11; Luc % (Auto) 1; Lymphocytes # (A) 0.7 k/uL (1.0-4.8); Lymphocytes % (A) 4 %; MCH 31.4 pg (25.0-35.0); MCHC 32.8 g/dL (31.0-37.0); MCV 95.9 fL (80.0-100.0); Mean Platelet Volume 7.9; Monocytes # (A) 0.6 k/uL (0-1.0); Monocytes % (A) 3 %; Neutrophils # (A) 17.7 k/uL (1.3-7.7); Neutrophils % (A) 92 %; RBC 4.27 m/uL (4.30-5.90); RDW 13.2 % (11.5-15.5); WBC 19.2 k/uL (3.8-10.6); WBC (Perox) 18.01
[2017-06-03 07:41] LABS: Glucose,Whole Blood 131 mg/dL (75-99)
[2017-06-03 07:52] LABS: Anion Gap 8 mmol/L; Blood Urea Nitrogen 24 mg/dL (9-20); Calcium 8.2 mg/dL (8.4-10.2); Carbon Dioxide 25 mmol/L (22-30); Chloride 108 mmol/L (98-107); Glucose 125 mg/dL (74-99); Magnesium 2.1 mg/dL (1.6-2.3); Non-African American GFR(MDRD) >60 (>60 ml/min/1.73 sqM); Potassium 3.8 mmol/L (3.5-5.1); Sodium 141 mmol/L (137-145)
[2017-06-03] MEDS: IPRATROPIUM-ALBUTEROL 3 ML NEB INHALATION SCH ×4 (08:09→19:36)
[2017-06-03] MEDS: METOPROLOL TARTRATE 50 MG TAB PO SCH ×3 (08:29→21:38)
[2017-06-03] MEDS: ATORVASTATIN 40 MG TAB PO SCH (08:29)
[2017-06-03] MEDS: ASPIRIN 81 MG CHEW PO SCH (08:30)
[2017-06-03] MEDS: CLOPIDOGREL 75 MG TAB PO SCH (08:30)
[2017-06-03] MEDS: INSULIN LISPRO (humaLOG) 300 UNIT/3 ML VIAL SQ SCH ×4 (08:30→21:41)
[2017-06-03] MEDS: ENOXAPARIN 40 MG/0.4 ML SYRINGE SQ SCH (08:30)
[2017-06-03] MEDS: methylPREDNISolone SOD SUCCI 40 MG/ML 1 ML VIAL IV SCH ×2 (08:30→16:27)
[2017-06-03] MEDS: cefTRIAXone 2,000 MG in SODIUM CHLORIDE 0.9% 100 ML IVPB SCH (08:30)
--- NOTE | 2017-06-03 09:37 | XR ---
EXAMINATION TYPE: XR chest 1V DATE OF EXAM: 06/03/2017 CLINICAL HISTORY: Difficulty breathing and pneumonia progress study. TECHNIQUE: Single AP portable upright view of the chest is obtained. COMPARISON: Chest x-ray from one day earlier FINDINGS: A left subclavian central venous catheter is stable in appearance. There is persistent car diomegaly with central vascular congestion. There is persistent small right pleural effusion. There i s persistent right greater than left bibasilar opacity and right midlung opacity. No large pneumothor ax is seen bilaterally. Osseous structures are intact. IMPRESSION: Overall stable findings, cardiomegaly with central vascular congestion and small right pleural effusion as well as right greater than left bibasilar infiltrate and/or atelectasis and right midlung infiltrate and/or atelectasis all redemonstrated.
[2017-06-03] MEDS ORDERED: ESOMEPRAZOLE 40 MG VIAL ONE (09:40)
[2017-06-03] MEDS: ESOMEPRAZOLE 20 MG in SODIUM CHLORIDE 0.9% 50 ML IVPB SCH (09:40)
[2017-06-03] MEDS: POTASSIUM CHLORIDE 10 MEQ in WATER FOR INJECTION 1 100ML.BAG IVPB SCH ×2 (11:10→12:27)
--- NOTE | 2017-06-03 11:35 | CT ---
EXAMINATION TYPE: CT brain wo con DATE OF EXAM: 06/03/2017 HISTORY: Altered mentation CT DLP: 1024.10 mGycm. Automated Exposure Control for Dose Reduction was Utilized. TECHNIQUE: CT scan of the head is performed without contrast. COMPARISON: None. FINDINGS: There is no acute intracranial hemorrhage or midline shift identified. There is diffuse v entricular and sulcal prominence consistent with diffuse age-related cerebral atrophy. There is low- attenuation in the periventricular white matter most likely on basis of product of chronic small vess el ischemic change. The globes are intact and the visualized sinuses are clear. IMPRESSION: No acute intracranial hemorrhage or midline shift. There is mild to moderate diffuse ag e-related cerebral atrophy and moderate chronic small vessel ischemic change noted.
--- NOTE | 2017-06-03 11:49 | CT ---
EXAMINATION TYPE: CT chest wo con DATE OF EXAM: 06/03/2017 COMPARISON: CT chest from 3 days ago. HISTORY: Loculated pleural effusion progress study. CT DLP: 803.50 mGycm. Automated Exposure Control for Dose Reduction was Utilized. TECHNIQUE: CT scan of the thorax is performed without IV contrast. FINDINGS: LUNGS: There is persistent multiloculated right-sided pleural fluid collection with largest component posterior and medial increased in size from prior exam measuring approximately 7.0 x 5.6 cm on axial image 23 x 16.5 cm craniocaudal dimension on coronal image 61. There is pigtail catheter inferiorly at this level remaining present more posterior in position versus prior study. More peripheral locula lester fluid collections are felt stable. There is increased compressive atelectasis in the right mid to lower lung. There is persistent tiny left pleural effusion all slightly larger with increasing compr essive atelectasis. Central perihilar opacity favors mild edema bilaterally. MEDIASTINUM: Lack of IV contrast is noted to limit evaluation for mediastinal and especially hilar ad enopathy. Prominent thoracic lymph nodes are redemonstrated. For reference pericarinal lymph node dahlia sures 1.2 x 1.2 cm on axial image 21 unchanged in size from prior study. There is stable mild cardiom egaly. There is stable small to moderate-sized pericardial effusion. Main pulmonary artery remains di lated at 3.5 cm on axial image 24, CT findings suggesting underlying pulmonary artery hypertension. P rominent coronary calcification or stent in the LAD is redemonstrated. A left-sided subclavian centra l venous catheter is stable. OTHER: Contracted gallbladder is partially imaged. There is moderate multilevel spurring in the visua lized spine. Small degree of bilateral gynecomastia is redemonstrated. IMPRESSION: 1. Posterior medial loculated pleural fluid collection is increased in size despite pigtail catheter along inferior aspect remaining present. 2. Other loculated pleural fluid collections right lung are felt stable. There is increasing right lo wer lung atelectasis and/or infiltrate. 3. Cardiomegaly with central opacity suggesting edema, correlate for CHF exacerbation. Underlying inf iltrates are not excluded. 4. Stable small to moderate-sized pericardial effusion.
--- NOTE | 2017-06-03 12:09 | PN ---
This 52-year-old gentleman was admitted to the hospital with chest pain, pleural pericarditis and underwent pericardial drainage. The patient is also having paroxysmal atrial fibrillation. He has a loculated right-sided pleural effusion which is being addressed by motion picture set grip. This morning the patient is still awake but is confused. His blood pressure is stable. He is currently being treated with antibiotics for pneumococcal pericarditis and effusion. His blood pressure is 116/69, pulse is 84, saturation 95%. He had bouts of atrial fibrillation but converted back to sinus rhythm. Not a candidate for anticoagulation therapy at this time. Lab values showed a white count of 10,000, hemoglobin is normal. His BUN and creatinine are within normal limits. Chest x-ray continues to show persistent right perihilar and right basilar infiltrates. There is improvement in pulmonary venous congestion. He is currently on amlodipine 5 mg at bedtime, atorvastatin, ceftriaxone, Plavix , diltiazem, IV infusion, Vasotec, Lovenox, Haldol, Ativan, methylprednisone, metoprolol 50 mg t.i.d. PHYSICAL EXAMINATION: Reveals a 52-year-old gentleman who is alert but not oriented, confused. NECK: Supple. HEART: S1/S2 heard. LUNGS: There are some diminished breath sounds, mostly on the right side. EXTREMITIES: No significant cyanosis or clubbing. FINAL IMPRESSION: 1. Pneumonia and pericarditis. 2. Respiratory failure. 3. Confusional state related to alcohol withdrawal. 4. Paroxysmal atrial fibrillation. PLAN: Continue current medical therapy. Will increase the dose of the metoprolol . May discontinue Cardizem later on. The rest of the management to be continued. Prognosis is guarded. MTDD
--- NOTE | 2017-06-03 12:22 | P.PN ---
Subjective 52-year-old gentleman, known history of alcoholism, presented to the hospital because of increased chest pain. He was found to have ST segment elevation myocardial infarction. The patient was taken to [facility] on an emergent basis and he had stents placed into his LAD for a 70% LAD lesion. He was also found to have a large pericardial effusion and leukocytosis. He was seen by surgery and he underwent a bedside pericardiocentesis and total of 380 mL of fluid was drained from the pericardial space. Initial cultures are growing up hemolytic strep and the patient is or the being covered with a combination of Rocephin and vancomycin. Note that his initial chest x-ray on admission showed a right upper lobe consolidation and subsequent x-ray showed diffuse lateral pulmonary infiltrates typical of an underlying ARDS. The patient also went into delirium tremens. Overnight she had become quite a bit agitated and he had required a total of 8 mg of Ativan throughout the night. This morning, the patient is lethargic, and 2. restraints, confused and sometimes agitated. He is on a BiPAP at a pressure of 12/5 cm of water with an FiO2 of 100%. Earlier he was on a percent and he had to be brought up to 100% to maintain a saturation above 90%. He has good pulses in all 4 extremities. He is producing approximately 50 mL an hour. He is on normal saline at the rate of 75 mL an hour. White cell count remains elevated at 28.6. He is on no pressors for now. No significant electrode abnormalities. No acidosis. Echocardiogram that was done earlier showed a preserved LV function. The patient has a pericardial tube in place and total amount of output that was drained this morning is around 125, brownish to yellowish pericardial fluid. Note that the fluid analysis was done earlier showed elevated LDH and protein. White cell count is also elevated at 44,000 with 92% on a nuclear white cells. On 05/28/2017 the patient remains intubated on a mechanical ventilator. He is sedated with Diprivan and is calm and comfortable. Spiked a high rate of the prevent, the patient is still easily arousable. Hemodynamically stable on no pressors. He remains on a mechanical ventilator on assist control mode at the rate of 24, tidal volume 500, FiO2 of 50% and a PEEP of 8. The blood gases from this morning showed a pH of 7.42 with a pCO2 of 36 and pO2 of 69. I reviewed the chest x-ray from today that shows no interval change and there is diffuse breath and pulmonary infiltrates and ET tube is in a good location. The CAT scan of the chest that was done yesterday showed development of a loculated pleural effusion on the right more so a large pocket sitting in the posterior aspect of the right hemithorax which I think it's accessible for percutaneous drainage and for that reason I discussed this case with interventional radiology and will going to proceed with this procedure despite the fact that the patient on a combination of aspirin and Plavix. I think the benefits of this procedure will outweigh the risk. Meanwhile a bronchoscopy and the bronchioloalveolar lavage was done yesterday and the cultures are all negative thus far. The patient's pericardial effusion culture showed strep pneumonia which is sensitive to all antibiotics and the patient complications on a combination of vancomycin and Rocephin. Vancomycin may be ultimately discontinued and this will be discussed further with infectious disease. He will be started on tube feeds today. He is otherwise doing well and there has been no other issues over the past 24 hours. On 05/29/2017 the patient is being seen in the follow-up. The patient remains intubated on a mechanical ventilator and sedated and calm and comfortable. As mentioned earlier, there was a concern of a empyema. Based on that I talked interventional radiology and were able to drain the loculated pleural fluid on the right. The fluid was nonpurulent. The white cell count within the fluid was nonelevated and the cultures still pending for now. The procedure was not the bedside successfully a total of 600 mL of fluid was aspirated from the right lung. At this point in time the right-sided chest tube is connected to Pleur-evac and is not draining actively. The chest x-ray however shows marked improvement in the pneumonia and in the loculated pleural fluid that was seen on the right. ET tube is sitting high in the trachea. The patient is an assist -control mode at the rate of 24, tidal volume of 500, FiO2 of 50% and a PEEP of 8. Morning blood gases showed a pH of 7.41 with a pCO2 of 38 and pO2 of 152 and there has been marked improvement in his oxygenation. The only positive cultures from his pericardial fluid which is strep pneumo and the patient on high-dose Rocephin. Vancomycin was discontinued by infectious disease as the strep pneumo has been sensitive. He was dynamically stable. Tolerating his tube feeds. Was given a sedation holiday this morning and he was able to wake up and follow commands appropriately. The pericardial tube is not draining at this point. On 05/30/2017 I'm seeing this patient in follow-up. The patient is doing well. I reviewed the chest x-ray and there is some residual infiltration of however they x-ray findings have essentially improved and the patient is improving in terms of his pneumonia. The right-sided pleural effusion was also drained percutaneously with a smaller chest tube by interventional radiology. The fluid cultures of been all negative. The blood culture been negative. The pericardial effusion was positive for Streptococcus pneumonia. The patient is on IV Rocephin 2 g every 24 hours. The patient has a pericardial catheter in place and yesterday the drainage was only 20-30 mL, none for today. This morning, the patient was taken off sedation. He woke up appropriately. Unable to complete the. He has breathing trial as the patient was becoming more and more agitated and anxious and his blood pressure was fluctuating and he was becoming tachypneic. At that point I noted the patient had adequate strength an adequate gag and cough reflex. He is at which her breathing index was also reasonable. At that point I decide to extubate this patient without giving him is participating trial. He extubated successfully and currently is on 5 L oxygen by nasal cannula. This was subsequently weaned down to 3 L. Hemodynamically stable. No chest pain. No other significant issues overnight. The patient is somewhat lethargic over he is still recovering from his underlying sedation. No tremors. No agitation. No signs of delirium tremens at this point. On 05/31/2017 I'm seeing this patient in follow-up. As mentioned earlier, the patient was extubated yesterday without any major difficulties. At the later stage the patient started having symptoms of delirium. He was on and off confused throughout the night and he sees a total of 6 mg of IV Ativan for delirium tremens. This morning, he is not oriented to time and place. His multiple of her extremities. No headache. The antibiotics are still unchanged and the patient is on high dose Rocephin regarding pneumococcal pneumonia and acute pneumococcal pericarditis. The pericardial catheter has drained 80 mL yesterday and there is no active drainage from the right-sided chest tube. Chest x-ray still showing breath and pulmonary infiltrates although improved compared to the initial chest x-ray from May 28. The patient is resting comfortably in bed. No signs of respiratory distress. Active issues for now remains his altered mentation and the delirium tremens. Hemodynamically stable. On 06/01/2017 the patient remains extubated. The patient remains in the intensive care unit. Mentation is still impaired and the patient is still delirious and he is not fully recovered from his delirium tremens. He is not agitated at this point. He had received a total of 8 mg of Ativan since yesterday evening. He is breathing comfortably in bed. There pericardial tube has drained 80 mL today and I reviewed the CAT scan of the chest that showed a loculated right-sided pleural effusion measuring 9.5 x 4.6 x 6.4 cm in size and this is obviously smaller compared to the previous measurement. Additional smaller loculation was also seen. Tiny free flowing effusion is also present bilaterally. Several lymph nodes within the mediastinum largest being 13 mm in size and there is not a 14 mm right paratracheal lymph node also. The patient made on IV Rocephin however today he has developed a maculopapular rash over the anterior chest and back area which could be potentially an ALLERGIC reaction. Cephalosporin ALLERGY needs to be considered. Hemodynamically stable. Producing adequate amount of urine output. He is not eating much over his swallowing is medication. White cell count is at 12.3. The rest of the electrodes are within normal limits. No new cultures are available at this point. On 06/02/2017 the patient remains extubated. The patient is still confused although he seems to be much less agitated and not requiring as much Ativan. He received only 2 mg of Ativan yesterday. Much more responsive today. Not diaphoretic and resting comfortably in bed. Oxygen has been taken off and his pulse ox on room air is 95%. Note that ultimately placed was applied to these chest tube yesterday and there was a drainage of 300 mL of pleural fluid post unclamping of the chest tube. The pericardial catheter has been removed. The patient is on IV Rocephin. His rash has subsided. He is on IV Solu-Medrol. Hemodynamically stable. White cell count remains low. He remains afebrile. He is not eating as much over he can swallow his pills. He went into a episode of atrial fibrillation yesterday and he quite Cardizem bolus and drip and currently is back to normal sinus rhythm and he is on Toprol 25 mg by mouth 3 times a day. Physical therapy will be involved in his case today. On 06/03/2017, the activation remains ongoing delirium tremens. Based on his increased agitation and restlessness overnight the patient was given a total of 8 mg of Ativan. This morning he was more so sleepy. His neurologic exam was nonfocal. A CAT scan of the brain was done that showed no acute abnormalities. As mentioned earlier, he received 2 alteplase treatment to his right lung so the small bore chest tube and the patient had approximately 300 mL of drainage following each application. This morning, I repeated a CAT scan of the chest and patient is found to have loculated pleural collection which has increased in size despite the pigtail catheter and there is also other loculated pleural fluid collection in the right lung with some increasing right lower lobe atelectasis. He remains afebrile. He is on IV Rocephin. Hemodynamically stable. No nausea. No vomiting. No abdominal pain. Oral intake remains low. He is able to swallow his pills. We'll discuss his findings with cardiothoracic surgery. It's reasonable to continue the out of place treatment for now in view of the worsening in loculation along the right chest. Objective - Vital Signs Vital signs: Vital Signs Temp 98.1 F 06/03/17 08:00 Pulse 70 06/03/17 11:47 Resp 25 H 06/03/17 10:00 BP 125/74 06/03/17 11:00 Pulse Ox 94 L 06/03/17 11:41 Intake & Output 06/02/17 06/03/17 06/03/17 18:59 06:59 18:59 Intake Total 1414.083 245 300 Output Total 835 745 755 Balance 579.08500 -519 Weight 95.6 kg 95.6 kg Intake: IV 220 120 150 NS 40 Sodium Chloride 0.9% 1, 120 120 10 000 ml @ 50 mls/hr IV . Q20H [facility] Rx#:[id number] cefTRIAXone 2,000 mg In 100 100 Sodium Chloride 0.9% 100 ml @ 100 mls/hr IVPB Q24HR [facility] Rx#:[id number] Intake, IV Titration 114.083 125 150 Amount Diltiazem 125 mg In 114.083 125 Sodium Chloride 0.9% 100 ml @ 10 MG/HR 10 mls/hr IV .[id number] [facility] Rx#: [id number] Esomeprazole 20 mg In 50 Sodium Chloride 0.9% 50 ml @ 100 mls/hr IVPB DAILY [facility] Rx#:[id number] Potassium Chloride 10 meq 100 In Water For Injection 1 100ml.bag @ 100 mls/hr IVPB Q1H [facility] Rx#: [id number] Oral 1080 Output: Chest Tube Drainage 120 30 470 Chest Tube Right 120 30 470 Posterior Chest Urine 715 715 285 Other: Voiding Method Indwelling Catheter Indwelling Catheter Indwelling Catheter ABP, PAP, CO, CI - Last Documented Arterial Blood Pressure 136/66 - Exam T Head exam was generally normal. There was no scleral icterus or corneal arcus. Mucous membranes were moist..Neck was supple and without jugular venous distension, thyromegaly, or carotid bruits. Carotids were easily palpable bilaterally. There was no adenopathy. Orogastric and oral tracheal tube are both in place.Head exam was generally normal. There was no scleral icterus or corneal arcus. Mucous membranes were moist. Lungs sounds are diminished bilaterally. Breath sounds are equal and symmetrical however. No wheezes. The right-sided chest tube is still in place. This is connected to a Pleur- evac. Heart sounds are regular, positive S1-S2 and there is a friction rub can be appreciated over the anterior chest wall. The abdomen was soft, non-tender, and without masses, organomegaly, or appreciable enlargement of the abdominal aorta.Examination of the extremities revealed easily palpable radial, femoral and pedal pulses. There was no cyanosis, clubbing or edema. Neurologically , the patient is moving all 4 extremities. Periodic confusion is still seen. His more lethargic under the effect of Ativan - Labs CBC & Chem 7: 06/03/17 07:25 06/03/17 07:25 Labs: Abnormal Lab Results - Last 24 Hours (Table) 06/02/17 06/02/17 06/02/17 Range/Units 17:57 20:35 22:01 WBC (3.8-10.6) k/uL RBC (4.30-5.90) m/uL Plt Count (150-450) k/uL Neutrophils # (1.3-7.7) k/uL Lymphocytes # (1.0-4.8) k/uL Chloride (98-107) mmol/L BUN (9-20) mg/dL Creatinine (0.66-1.25) mg/dL Glucose (74-99) mg/dL POC Glucose (mg/dL) 141 H 184 H 104 H (75-99) mg/dL Calcium (8.4-10.2) mg/dL 06/03/17 06/03/17 06/03/17 Range/Units 07:25 07:25 07:38 WBC 19.2 H (3.8-10.6) k/uL RBC 4.27 L (4.30-5.90) m/uL Plt Count 454 H (150-450) k/uL Neutrophils # 17.7 H (1.3-7.7) k/uL Lymphocytes # 0.7 L (1.0-4.8) k/uL Chloride 108 H (98-107) mmol/L BUN 24 H (9-20) mg/dL Creatinine 0.57 L (0.66-1.25) mg/dL Glucose 125 H (74-99) mg/dL POC Glucose (mg/dL) 131 H (75-99) mg/dL Calcium 8.2 L (8.4-10.2) mg/dL Microbiology - Last 24 Hours (Table) 05/27/17 11:50 Fungal Culture - Preliminary Bronchial Washings - Random Yeast species Assessment and Plan Plan: Assessment 1 acute hypoxic respiratory failure with development of diffuse breath and pulmonary infiltrates. CAT scan of the chest was reviewed and the findings are consistent with diffuse bilateral pneumonia with loculated right-sided pleural effusion with possibly empyema versus a complicated loculated parapneumonic fluids. A small bore chest tube was inserted to the right hemithorax and total of 600 mL the pleural fluid was aspirated. The cultures been negative at this point. While, there has been significant improvement in the pulmonary infiltration and oxygenation on today's evaluation. The patient remains intubated on a mechanical ventilator. On 05/30/2017, the patient was taken off sedation and he demonstrated adequate ability to maintain his airways patent and he had adequate neurologic function with the patient woke up and he was following commands moving all 4 extremities without any limitation. At that point the decision was to extubate this patient and this was a successful extubation. Currently is on 3 L of oxygen by nasal cannula. On 05/31/2017, the patient remains extubated. A repeat CAT scan of the chest will be obtained to follow-up on the loculated pleural effusion and decided the patient may benefit from an intrapleural TPA. We'll keep the pericardial catheter in place as long as there is still on and off drainage as the patient has drained approximately 80 mL yesterday. The patient is extubated. The patient on IV Rocephin. On 06/01/2017, the CAT scan of the chest was reviewed and the smaller chest tube is still in a good location however it is not draining a lot. Based on this, alteplase will be infused to enhance further drainage from the loculated right-sided pleural effusion. On 06/02/2017 chest x-ray findings are essentially stable. Nevertheless, there has been improved drainage from his right lung and I would consider repeating the alteplase today to improve the drainage and hopefully evacuate that the loculated right-sided pleural effusion. As such the alteplase will be repeated today and we'll monitor the output and repeat chest x-ray in the morning. On 06/03/2017, the patient shows increased loculation and atelectasis of the right lung and the patient has already received 2 alteplase treatment with subsequent worsening. He is an IV Rocephin. No signs of sepsis. Not in acute respiratory distress at this point. 2 acute STEMI status post emergent cardiac catheterization and stenting of the LAD 3 acute infectious pneumococcal pericarditis, with a pericardial effusion/ infected pericardial fluid with cultures growing strep pneumo, status post percutaneous drainage of the pericardial effusion at the bedside and the patient has a triple lumen catheter placed within the pericardium. The output from the pericardial tube is minimal at this point, and the tube was pulled out yesterday by CT surgery. 4 alcoholism 5 delirium tremens , active 6 Maculopapular rash, resolved with Solu-Medrol 7 paroxysmal atrial fibrillation, current rhythm is sinus on beta blockers Plan Repeat alteplase treatment. Discussed the findings with CT surgery and explored the surgical options of thoracoscopy and further evacuation of the loculated right-sided pleural effusion. Meanwhile, continue Rocephin. CAT scan of the brain is negative. Watch delirium tremens. We'll continue to follow. Keep in ICU for now. Advance diet. We'll follow.
[2017-06-03 12:26] LABS: Glucose,Whole Blood 133 mg/dL (75-99)
--- NOTE | 2017-06-03 12:48 | P.PN ---
Subjective Principal diagnosis: Septic pericarditis, pneumonia and altered mental status This patient is admitted to the hospital with chest pain and evidence of pericarditis, which subsequently was proved to be septic pericarditis. Patient also has pneumonia and respiratory failure. He had bouts of atrial fibrillation but seemed to be maintaining sinus rhythm since yesterday. He has history of coronary artery disease and stent placement. A repeat computed tomography scan today showed stable pericardial effusion. Patient seemed to be hemodynamically stable. His blood pressure 110/70. Patient apparently was agitated and required several doses of Ativan. He seemed to be sleepy but arousable. Objective - Vital Signs Vital signs: Vital Signs Temp 98.1 F 06/03/17 08:00 Pulse 71 06/03/17 12:00 Resp 21 06/03/17 12:00 BP 117/75 06/03/17 12:00 Pulse Ox 90 L 06/03/17 12:00 Intake & Output 06/02/17 06/03/17 06/03/17 18:59 06:59 18:59 Intake Total 1414.083 245 310 Output Total 835 745 835 Balance 579.083 -500 -525 Weight 95.6 kg 95.6 kg Intake: IV 220 120 160 NS 50 Sodium Chloride 0.9% 1, 120 120 10 000 ml @ 50 mls/hr IV . Q20H [facility] Rx#:[id number] cefTRIAXone 2,000 mg In 100 100 Sodium Chloride 0.9% 100 ml @ 100 mls/hr IVPB Q24HR [facility] Rx#:[id number] Intake, IV Titration 114.083 125 150 Amount Diltiazem 125 mg In 114.083 125 Sodium Chloride 0.9% 100 ml @ 10 MG/HR 10 mls/hr IV .[id number] [facility] Rx#: [id number] Esomeprazole 20 mg In 50 Sodium Chloride 0.9% 50 ml @ 100 mls/hr IVPB DAILY [facility] Rx#:[id number] Potassium Chloride 10 meq 100 In Water For Injection 1 100ml.bag @ 100 mls/hr IVPB Q1H [facility] Rx#: [id number] Oral 1080 Output: Chest Tube Drainage 120 30 500 Chest Tube Right 120 30 500 Posterior Chest Urine 715 715 335 Other: Voiding Method Indwelling Catheter Indwelling Catheter Indwelling Catheter ABP, PAP, CO, CI - Last Documented Arterial Blood Pressure 136/66 - Exam GENERAL EXAM: Patient is sleepy and sluggish but arousable HEENT: Normocephalic. Normal reaction of pupils, equal size, normal range of extraocular motion. No erythema or exudates in the throat. NECK: No masses, no nuchal rigidity. CHEST: No chest wall deformity. LUNGS: Equal air entry with no crackles or wheeze. HEART: S1 and S2 normal with no audible mumurs or gallops. Regular rhythm, femorals equal on both sides.. ABDOMEN: No hepatosplenomegaly, normal bowel sounds, no guarding or rigidity. SKIN: No rashes CENTRAL NERVOUS SYSTEM: Deferred EXTREMITIES: No cyanosis, clubbing or edema. - Labs CBC & Chem 7: 06/03/17 07:25 06/03/17 07:25 Labs: Abnormal Lab Results - Last 24 Hours (Table) 06/02/17 06/02/17 06/02/17 Range/Units 17:57 20:35 22:01 WBC (3.8-10.6) k/uL RBC (4.30-5.90) m/uL Plt Count (150-450) k/uL Neutrophils # (1.3-7.7) k/uL Lymphocytes # (1.0-4.8) k/uL Chloride (98-107) mmol/L BUN (9-20) mg/dL Creatinine (0.66-1.25) mg/dL Glucose (74-99) mg/dL POC Glucose (mg/dL) 141 H 184 H 104 H (75-99) mg/dL Calcium (8.4-10.2) mg/dL 06/03/17 06/03/17 06/03/17 Range/Units 07:25 07:25 07:38 WBC 19.2 H (3.8-10.6) k/uL RBC 4.27 L (4.30-5.90) m/uL Plt Count 454 H (150-450) k/uL Neutrophils # 17.7 H (1.3-7.7) k/uL Lymphocytes # 0.7 L (1.0-4.8) k/uL Chloride 108 H (98-107) mmol/L BUN 24 H (9-20) mg/dL Creatinine 0.57 L (0.66-1.25) mg/dL Glucose 125 H (74-99) mg/dL POC Glucose (mg/dL) 131 H (75-99) mg/dL Calcium 8.2 L (8.4-10.2) mg/dL 06/03/17 Range/Units 12:24 WBC (3.8-10.6) k/uL RBC (4.30-5.90) m/uL Plt Count (150-450) k/uL Neutrophils # (1.3-7.7) k/uL Lymphocytes # (1.0-4.8) k/uL Chloride (98-107) mmol/L BUN (9-20) mg/dL Creatinine (0.66-1.25) mg/dL Glucose (74-99) mg/dL POC Glucose (mg/dL) 133 H (75-99) mg/dL Calcium (8.4-10.2) mg/dL Microbiology - Last 24 Hours (Table) 05/27/17 11:50 Fungal Culture - Preliminary Bronchial Washings - Random Yeast species Assessment and Plan (1) Paroxysmal atrial fibrillation Status: Acute (2) COPD (chronic obstructive pulmonary disease) Status: Acute (3) Pericardial effusion Status: Acute (4) Purulent pericarditis Status: Acute (5) Right upper lobe pneumonia Status: Acute Plan: Patient has been maintaining sinus rhythm for the last 24 hours. We will discontinue IV Cardizem and continue the metoprolol. Not a candidate for anticoagulation. Rest of the care as per the silk folder.
[2017-06-03] MEDS ORDERED: ALTEPLASE 10 MG in SODIUM CHLORIDE 0.9% 100 ML IRRIGATION ONE (15:00)
[2017-06-03 17:14] LABS: Glucose,Whole Blood 112 mg/dL (75-99)
[2017-06-03] MEDS: MORPHINE SULFATE 2 MG/ML SYRINGE IVP PRN (17:17)
--- NOTE | 2017-06-03 17:22 | P.PN ---
Subjective Mr. Araujo is a 52-year-old male with a past medical history of chronic low back pain, hypertension, alcohol abuse and nicotine dependence coming into the hospital with a chief complaint of chest pain. Patient has history of chronic low back pain and pain of his neck that has been going on but for the past 5 days his symptoms have worsened. Patient's chest pain got worse and he was complaining of 10 out of 10 and so called the EMS. The paramedics did perform an EKG which was suspicious for ST elevation NM. He was given aspirin and nitroglycerin and transferred to [facility] for further evaluation. So the site identification specialist telecom network manager Dr. GRICELDA Gonzales was informed, who did an emergent cardiac catheterization. The patient had a stent placed in his LAD and was also noted to have a large pericardial effusion. So CT surgeon Dr. Multani came in and did a pericardiocentesis. There was 380 mL of fluid drained out. And the patient has been transferred to the ICU for further management and care. On 05/26/17- on the night of 05/26 the patient became very combative and was trying to put all his lines and the pericardial catheter. The patient was placed on a CIWA scale and given 10 mg of Ativan without much improvement in his symptoms. So eventually he was given Haldol after which the patient did calm down. Around 230 ml of fluid was drained from the pericardium. On 05/27/17 - patient was pretty confused, agitated and was on restraints , he was placed on BiPAP and as he was desaturating. Dr. Angel had to intubate the patient around 10 AM today due to impending respiratory failure due to ARDS. Patient also had a bronchoscopy done by Dr. Angel this morning. Patient's pericardial fluid came back to be positive for Streptococcus and he has been started on ceftriaxone. On 05/28/2017- patient still remains intubated. He is on a Levophed drip. Sedated on propofol. Patient had thoracentesisdone today and 400 mL of fluid was drained. And the chest tube was placed. 05/29/2017 Patient failed a weaning trial this morning. With sedation holiday patient is able to move all his 4 extremities and follows simple commands. Cultures from bronchial washings showed no growth for the past 24 hours. On 05/30/17 - pt has been extubated successfully and is saturating above 90 % on 3 lt of nasal canula. on 05/31/17 Pt. is confused but able to answer slowly. resp status improved. still on chest tube and pericardial drain tube. 06/01/17 pt is confused able to answer questions no overnight events reported tries to get out of bed ROS_ deferred due to pt's confusion 06/02/2017 Patient is confused however is able to answer some questions appropriately Denies having any additional problems Overnight the patient had changed into atrial fibrillation is currently maintained on a Cardizem drip 06/03/17 confused no overnight events TPA is infused due to complicated effusion, loculated - Exam GEN. APPEARANCE: no acute distress. Extubted HEAD EXAM: Atraumatic EYE EXAM: No pallor no icterus ENT EXAM: ET tube in place NECK EXAM: No carotid bruit. No thyromegaly RESPIRATORY EXAM: Diminished breath sounds bilaterally. Coarse breath sounds in all lung [place] with crackles. Right chest tube in place. CARDIOVASCULAR EXAM: regular S1 and S2 heard. GI/ABDOMINAL EXAM: Soft nontender. No guarding or rigidity. EXTREMITIES EXAM: No cyanosis, no swelling, no edema. NEUROLOGICAL EXAM: confused SKIN EXAM: warm to touch. No rash. Assessment and Plan Plan: ASSESSMENT Septic shock Streptococcal pericarditis Acute hypoxic respiratory failure secondary to ARDS Pneumonia right upper lobe ST elevation NM status post stenting of LAD Pericardial effusion Alcohol withdrawal delirium tremens Chronic liver disease Chronic alcohol abuse Chronic nicotine dependence New-onset atrial fibrillation with rapid ventricular rate PLAN in NSR Patient will be given 50 mg of Seroquel bedtime continue with full ICU support delirium is still noted chest tube management per CTS ABX DVT prophylaxis Objective - Vital Signs Vital signs: Vital Signs Temp 98.1 F 06/03/17 17:00 Pulse 81 06/03/17 17:00 Resp 22 06/03/17 17:00 BP 122/66 06/03/17 17:00 Pulse Ox 94 L 06/03/17 17:00 Intake & Output 06/02/17 06/03/17 06/03/17 18:59 06:59 18:59 Intake Total 1414.083 245 450 Output Total 163 393 8612 Balance 579.082 -500 -925 Weight 95.6 kg 95.6 kg Intake: IV 220 120 200 NS 90 Sodium Chloride 0.9% 1, 120 120 10 000 ml @ 50 mls/hr IV . Q20H DIANA Rx#:[id number] cefTRIAXone 2,000 mg In 100 100 Sodium Chloride 0.9% 100 ml @ 100 mls/hr IVPB Q24HR DIANA Rx#:[id number] Intake, IV Titration 114.083 125 150 Amount Diltiazem 125 mg In 114.083 125 Sodium Chloride 0.9% 100 ml @ 10 MG/HR 10 mls/hr IV .[id number] DIANA Rx#: [id number] Esomeprazole 20 mg In 50 Sodium Chloride 0.9% 50 ml @ 100 mls/hr IVPB DAILY DIANA Rx#:[id number] Potassium Chloride 10 meq 100 In Water For Injection 1 100ml.bag @ 100 mls/hr IVPB Q1H DIANA Rx#: [id number] Oral 1080 100 Output: Chest Tube Drainage 120 30 810 Chest Tube Right 120 30 810 Posterior Chest Urine 715 715 565 Other: Voiding Method Indwelling Catheter Indwelling Catheter Indwelling Catheter ABP, PAP, CO, CI - Last Documented Arterial Blood Pressure 136/66 - Labs CBC & Chem 7: 06/03/17 07:25 06/03/17 07:25 Labs: Abnormal Lab Results - Last 24 Hours (Table) 06/02/17 06/02/17 06/02/17 Range/Units 17:57 20:35 22:01 WBC (3.8-10.6) k/uL RBC (4.30-5.90) m/uL Plt Count (150-450) k/uL Neutrophils # (1.3-7.7) k/uL Lymphocytes # (1.0-4.8) k/uL Chloride (98-107) mmol/L BUN (9-20) mg/dL Creatinine (0.66-1.25) mg/dL Glucose (74-99) mg/dL POC Glucose (mg/dL) 141 H 184 H 104 H (75-99) mg/dL Calcium (8.4-10.2) mg/dL 06/03/17 06/03/17 06/03/17 Range/Units 07:25 07:25 07:38 WBC 19.2 H (3.8-10.6) k/uL RBC 4.27 L (4.30-5.90) m/uL Plt Count 454 H (150-450) k/uL Neutrophils # 17.7 H (1.3-7.7) k/uL Lymphocytes # 0.7 L (1.0-4.8) k/uL Chloride 108 H (98-107) mmol/L BUN 24 H (9-20) mg/dL Creatinine 0.57 L (0.66-1.25) mg/dL Glucose 125 H (74-99) mg/dL POC Glucose (mg/dL) 131 H (75-99) mg/dL Calcium 8.2 L (8.4-10.2) mg/dL 06/03/17 06/03/17 Range/Units 12:24 17:10 WBC (3.8-10.6) k/uL RBC (4.30-5.90) m/uL Plt Count (150-450) k/uL Neutrophils # (1.3-7.7) k/uL Lymphocytes # (1.0-4.8) k/uL Chloride (98-107) mmol/L BUN (9-20) mg/dL Creatinine (0.66-1.25) mg/dL Glucose (74-99) mg/dL POC Glucose (mg/dL) 133 H 112 H (75-99) mg/dL Calcium (8.4-10.2) mg/dL Microbiology - Last 24 Hours (Table) 05/27/17 11:50 Fungal Culture - Preliminary Bronchial Washings - Random Rachel albicans
--- NOTE | 2017-06-03 21:05 | P.PN ---
Subjective Principal diagnosis: Purulent pericarditis This is a 52-year-old male who presented to [facility] emergency center on May 25 due to chest pain that had been going on for 5 days and worsening. Patient was found to have ST elevation and was taken to the earth science laboratory technician with Dr. GRICELDA Gonzales and found to have a 60-70% lesion in the LAD and was subsequently stented. Patient also was found to have a large pericardial effusion and was started on Zosyn and Levaquin and admitted to the intensive care unit. He underwent a bedside echo guided pericardiocentesis and insertion of a pericardial drain done on May 25 with removal of 380 ML's of cloudy tannish fluid. Yesterday he had 225 mL removed in today 125 mL. Chest x -ray showed cardiomegaly, right upper lobe consolidation and bibasilar at infiltrate or atelectasis. He is also followed by Dr. Angel from pulmonary medicine and patient was on BiPAP this morning pulseox was 80% with agitation and confusion and ended up being intubated today. He has presented with a temperature of 101.1, white count of 29.7, sodium 123, blood sugar 314, lactic acid 2.7. Urinalysis was cloudy, protein 1+, blood moderate, leukocyte esterase trace, wbc's 15, clumps rare bacteria rare. Urine culture is in progress and blood cultures status received. Pericardial fluid alphahemolytic strep. Patient has history of drinking 18 beers per day and is on the CIWA protocol. Bronchoscopy was performed. Patient does have a chest tube now in place with decreasing amounts of drainage. Little drainage from the pericardial drain patient has tolerated extubation well, confusion is improved no active hallucinations. Objective - Vital Signs Vital signs: Vital Signs Temp 98.1 F 06/03/17 17:00 Pulse 83 06/03/17 19:55 Resp 26 H 06/03/17 19:00 BP 114/72 06/03/17 19:00 Pulse Ox 92 L 06/03/17 19:00 Intake & Output 06/03/17 06/03/17 06/04/17 06:59 18:59 06:59 Intake Total 245 570 10 Output Total 743 6255 100 Balance -500 -1505 -90 Weight 95.6 kg Intake: IV 120 220 10 NS 110 10 Sodium Chloride 0.9% 1, 120 10 000 ml @ 50 mls/hr IV . Q20H DIANA Rx#:[id number] cefTRIAXone 2,000 mg In 100 Sodium Chloride 0.9% 100 ml @ 100 mls/hr IVPB Q24HR DIANA Rx#:[id number] Intake, IV Titration 125 150 Amount Diltiazem 125 mg In 125 Sodium Chloride 0.9% 100 ml @ 10 MG/HR 10 mls/hr IV .[id number] DIANA Rx#: [id number] Esomeprazole 20 mg In 50 Sodium Chloride 0.9% 50 ml @ 100 mls/hr IVPB DAILY DIANA Rx#:[id number] Potassium Chloride 10 meq 100 In Water For Injection 1 100ml.bag @ 100 mls/hr IVPB Q1H DIANA Rx#: [id number] Oral 200 Output: Chest Tube Drainage 30 1360 50 Chest Tube Right 30 1360 50 Posterior Chest Urine 715 715 50 Other: Voiding Method Indwelling Catheter Indwelling Catheter ABP, PAP, CO, CI - Last Documented Arterial Blood Pressure 136/66 - Exam Gen: This is a 52-year-old male. Patient is now extubated but is not a good historian HEENT: Head is atraumatic, normocephalic. Sclerae is anicteric. Dentition is in poor order NECK: Supple. No JVD. No lymphadenopathy. No thyromegaly. LUNGS: Diminished bilaterally with scattered crackles. Decreased breath sounds especially to the right base, chest tube is in place with improved aeration right base. HEART: Regular rate and rhythm. No murmur. pericardial tube in place. No crunch or crackle is heard 70 mL noted for drainage ABDOMEN: Soft. Bowel sounds are present. No masses. No tenderness. EXTREMITIES: No pedal edema. No calf swelling NEUROLOGICAL: The patient is extubated but remains a poor historian. But did move upper and lower extremities.no hallucinations Skin is without rash or visualized breakdown - Labs CBC & Chem 7: 06/03/17 07:25 06/03/17 07:25 Labs: Abnormal Lab Results - Last 24 Hours (Table) 06/02/17 06/03/17 06/03/17 Range/Units 22:01 07:25 07:25 WBC 19.2 H (3.8-10.6) k/uL RBC 4.27 L (4.30-5.90) m/uL Plt Count 454 H (150-450) k/uL Neutrophils # 17.7 H (1.3-7.7) k/uL Lymphocytes # 0.7 L (1.0-4.8) k/uL Chloride 108 H (98-107) mmol/L BUN 24 H (9-20) mg/dL Creatinine 0.57 L (0.66-1.25) mg/dL Glucose 125 H (74-99) mg/dL POC Glucose (mg/dL) 104 H (75-99) mg/dL Calcium 8.2 L (8.4-10.2) mg/dL 06/03/17 06/03/17 06/03/17 Range/Units 07:38 12:24 17:10 WBC (3.8-10.6) k/uL RBC (4.30-5.90) m/uL Plt Count (150-450) k/uL Neutrophils # (1.3-7.7) k/uL Lymphocytes # (1.0-4.8) k/uL Chloride (98-107) mmol/L BUN (9-20) mg/dL Creatinine (0.66-1.25) mg/dL Glucose (74-99) mg/dL POC Glucose (mg/dL) 131 H 133 H 112 H (75-99) mg/dL Calcium (8.4-10.2) mg/dL Microbiology - Last 24 Hours (Table) 05/27/17 11:50 Fungal Culture - Preliminary Bronchial Washings - Random Rachel albicans Laboratory Results WBC 19.2 k/uL (3.8-10.6) H 06/03/17 07:25 RBC 4.27 m/uL (4.30-5.90) L 06/03/17 07:25 Hgb 13.4 gm/dL (13.0-17.5) 06/03/17 07:25 Hct 41.0 % (39.0-53.0) 06/03/17 07:25 MCV 95.9 fL (80.0-100.0) 06/03/17 07:25 MCH 31.4 pg (25.0-35.0) 06/03/17 07:25 MCHC 32.8 g/dL (31.0-37.0) 06/03/17 07:25 RDW 13.2 % (11.5-15.5) 06/03/17 07:25 Plt Count 454 k/uL (150-450) H 06/03/17 07:25 Neutrophils % 92 % 06/03/17 07:25 Neutrophils % (Manual) 54.5 % 05/26/17 05:35 Band Neutrophils % 39.0 % 05/26/17 05:35 Lymphocytes % 4 % 06/03/17 07:25 Lymphocytes % (Manual) 4.5 % 05/26/17 05:35 Monocytes % 3 % 06/03/17 07:25 Monocytes % (Manual) 1.5 % 05/26/17 05:35 Eosinophils % 0 % 06/03/17 07:25 Basophils % 0 % 06/03/17 07:25 Metamyelocytes % 0.5 % 05/26/17 05:35 Neutrophils # 17.7 k/uL (1.3-7.7) H 06/03/17 07:25 Neutrophils # (Manual) 20.4 k/uL (1.3-7.7) H 05/26/17 05:35 Lymphocytes # 0.7 k/uL (1.0-4.8) L 06/03/17 07:25 Lymphocytes # (Manual) 1.0 k/uL (1.0-4.8) 05/26/17 05:35 Monocytes # 0.6 k/uL (0-1.0) 06/03/17 07:25 Monocytes # (Manual) 0.3 k/uL (0-1.0) 05/26/17 05:35 Eosinophils # 0.0 k/uL (0-0.7) 06/03/17 07:25 Basophils # 0.0 k/uL (0-0.2) 06/03/17 07:25 Nucleated RBCs 0 /100 WBC (0-0) 05/26/17 05:35 Manual Slide Review Performed 05/25/17 15:00 Toxic Granulation Present 05/26/17 05:35 RBC Morphology Normal 05/25/17 15:00 Polychromasia Present 05/26/17 05:35 Poikilocytosis (manual Present 05/26/17 05:35 Anisocytosis (manual) Present 05/26/17 05:35 PT 12.1 sec (9.0-12.0) H 05/28/17 10:45 INR 1.2 (<1.2) H 05/28/17 10:45 APTT 25.9 sec (22.0-30.0) 05/25/17 15:00 D-Dimer 1.32 mg/L FEU (<0.60) H 05/25/17 15:00 Sample Site charlene 05/30/17 05:16 ABG pH 7.49 (7.35-7.45) H 05/30/17 05:16 ABG pCO2 34 mmHg (35-45) L 05/30/17 05:16 ABG pO2 85 mmHg (83-108) 05/30/17 05:16 ABG HCO3 26 mmol/L (21-25) H 05/30/17 05:16 ABG Total CO2 27 mmol/L (19-24) H 05/30/17 05:16 ABG O2 Saturation 97.0 % (94-97) 05/30/17 05:16 ABG Base Excess 2.4 mmol/L 05/30/17 05:16 ABG Hematocrit 48 % (34.0-46.0) H 05/25/17 16:00 FiO2 40 % 05/30/17 05:16 Sodium 141 mmol/L (137-145) 06/03/17 07:25 Potassium 3.8 mmol/L (3.5-5.1) 06/03/17 07:25 Chloride 108 mmol/L (98-107) H 06/03/17 07:25 Carbon Dioxide 25 mmol/L (22-30) 06/03/17 07:25 Anion Gap 8 mmol/L 06/03/17 07:25 BUN 24 mg/dL (9-20) H 06/03/17 07:25 Creatinine 0.57 mg/dL (0.66-1.25) L 06/03/17 07:25 Est GFR (MDRD) Af Amer >60 (>60 ml/min/1.73 sqM) 06/03/17 07:25 Est GFR (MDRD) Non-Af >60 (>60 ml/min/1.73 sqM) 06/03/17 07:25 Glucose 125 mg/dL (74-99) H 06/03/17 07:25 POC Glucose (mg/dL) 112 mg/dL (75-99) H 06/03/17 17:10 POC Glu Manager Recruitment ID Josie Truong 06/03/17 17:[address] Glu mg/dL 105 mg/dL 05/25/17 15:00 Hemoglobin A1c 5.3 % (4.2-6.1) 05/25/17 15:00 Lactic Ac Sepsis Rflx Y 05/26/17 06:08 Plasma Lactic Acid Rob 2.7 mmol/L (0.7-2.0) H* 05/26/17 09:47 Calcium 8.2 mg/dL (8.4-10.2) L 06/03/17 07:25 Phosphorus 4.0 mg/dL (2.5-4.5) 06/03/17 07:25 Magnesium 2.1 mg/dL (1.6-2.3) 06/03/17 07:25 Total Bilirubin 2.2 mg/dL (0.2-1.3) H 05/25/17 15:00 AST 117 U/L (17-59) H 05/25/17 15:00 ALT 72 U/L (21-72) 05/25/17 15:00 Alkaline Phosphatase 75 U/L (38-126) 05/25/17 15:00 Lactate Dehydrogenase 861 U/L (313-618) H 05/28/17 04:30 Total Creatine Kinase 29 U/L (55-170) L 05/25/17 15:00 CK-MB (CK-2) 0.6 ng/mL (0.0-2.4) 05/25/17 15:00 CK-MB (CK-2) Rel Index 2.1 05/25/17 15:00 Troponin I 0.030 ng/mL (0.000-0.034) 05/26/17 05:35 Total Protein 4.8 g/dL (6.3-8.2) L 05/28/17 04:30 Albumin 3.2 g/dL (3.5-5.0) L 05/25/17 15:00 Urine Color Yellow 05/26/17 05:00 Urine Appearance Cloudy (Clear) 05/26/17 05:00 Urine pH 5.5 (5.0-8.0) 05/26/17 05:00 Ur Specific [place] 1.030 (1.001-1.035) 05/26/17 05:00 Urine Protein 1+ (Negative) H 05/26/17 05:00 Urine Glucose (UA) Negative (Negative) 05/26/17 05:00 Urine Ketones Negative (Negative) 05/26/17 05:00 Urine Blood Moderate (Negative) H 05/26/17 05:00 Urine Nitrite Negative (Negative) 05/26/17 05:00 Urine Bilirubin Negative (Negative) 05/26/17 05:00 Urine Urobilinogen 2.0 mg/dL (<2.0) 05/26/17 05:00 Ur Leukocyte Esterase Trace (Negative) H 05/26/17 05:00 Urine RBC 10 /hpf (0-5) H 05/26/17 05:00 Urine WBC 15 /hpf (0-5) H 05/26/17 05:00 Urine WBC Clumps Rare /hpf (None) H 05/26/17 05:00 Ur Squamous Epith Cells 1 /hpf (0-4) 05/26/17 05:00 Amorphous Sediment Rare /hpf (None) H 05/26/17 05:00 Urine Bacteria Rare /hpf (None) H 05/26/17 05:00 Urine Mucus Rare /hpf (None) H 05/26/17 05:00 Fluid Source Pleural 05/28/17 12:55 Fluid Color Yellow 05/25/17 18:20 Fluid Appearance Hazy 05/28/17 12:55 Fluid RBC 440 /uL 05/28/17 12:55 Fluid Nucleated Cells 170 /uL 05/28/17 12:55 Fluid Polynuclear WBCs 83 % 05/28/17 12:55 Fluid Mononuclear WBCs 17 % 05/28/17 12:55 Body Fluid Glucose Source Not Reportable 05/28/17 12:55 Fluid Glucose <4 mg/dL 05/28/17 12:55 Body Fluid Protein Source Not Reportable 05/28/17 12:55 Fluid Total Protein 4300 mg/dL 05/28/17 12:55 Body Fluid LDH Source Not Reportable 05/28/17 12:55 Fluid LDH 3388 U/L 05/28/17 12:55 Fluid Comment 05/25/17 18:20 Vancomycin Trough 24.6 ug/mL 05/28/17 04:30 C. difficile (EIA) Intrp Negative (Negative) 05/31/17 04:20 Virus Source See Below 05/27/17 11:50 Viral Test See Below 05/27/17 11:50 Virus Analysis Interp See Below 05/27/17 11:50 Blood Type O Positive 05/25/17 15:00 Blood Type Recheck No 05/25/17 15:00 Antibody Screen NEGATIVE 05/25/17 15:00 Transfuse Plasma 05/25/2017 05/25/17 15:00 Spec Expiration Date 05/28/2017 - 2300 05/25/17 15:00 Microbiology 05/27/17 11:50 Bronchial Washings - Random Fungal Culture - Preliminary Rachel albicans 05/28/17 12:55 Pleural Fluid Anaerobic Culture - Final 05/26/17 09:47 Blood Blood Culture - Final No Growth after 144 hours 05/26/17 09:47 Blood Blood Culture - Final No Growth after 144 hours 05/28/17 12:55 Pleural Fluid Gram Stain - Final 05/28/17 12:55 Pleural Fluid Body Fluid Culture - Final 05/25/17 18:20 Pericardial Fluid Anaerobic Culture - Final 05/27/17 11:50 Bronchial Washings - Random Gram Stain - Final 05/27/17 11:50 Bronchial Washings - Random Bronchial Washings Culture - Final Rachel albicans 05/27/17 11:50 Bronchial Washings - Random Acid Fast Bacilli Smear - Final 05/27/17 11:50 Bronchial Washings - Random Acid Fast Bacilli Culture - Preliminary 05/25/17 18:20 Pericardial Fluid Gram Stain - Final 05/25/17 18:20 Pericardial Fluid Body Fluid Culture - Final Streptococcus pneumoniae 05/26/17 05:00 Urine,Catheterized Urine Culture - Final 05/25/17 18:20 Pericardial Fluid Acid Fast Bacilli Smear - Final 05/25/17 18:20 Pericardial Fluid Acid Fast Bacilli Culture - Preliminary Assessment and Plan (1) Alcoholism Status: Acute (2) Acute hypoxemic respiratory failure Status: Acute (3) Purulent pericarditis Narrative/Plan: 52-year-old gentleman who has a history of alcoholism who has radiological evidence of pneumonia. It is highly likely that the pneumonia resulted in the purulent pericarditis via direct extension. alpha streptococci have been isolated. It has been noted to be Streptococcus pneumoniae that is not drug- resistant. Antibiotic therapy with Rocephin and vancomycin is being utilized at this time pending further data. Blood cultures negative so far. As noted the patient's alcohol withdrawal is being treated, and his respiratory failure hopefully respond well to antibiotic therapy, treatment of the purulent pericarditis and underlying sepsis. The extensive leukocytosis is directly related to the purulent pericarditis and pneumonia, and with this current underlying status of alcoholism is a good prognostic sign and he was able to generate a leukocytosis. Chest tube is been placed in further cultures are pending. Blood cultures negative so far. Overall there is been improvement of his status. He is now extubated and doing well off of the ventilator. He is comfortable and neurologically not agitated. Still having some drainage from the august-cardial drain. Chest tube with minimal drainage. Is showing improvement. As noted cultures have Streptococcus pneumoniae and doing well with current antibiotic therapy of Rocephin. Will need several weeks of intravenous antibiotic therapy. The significant leukocytosis is improved Status: Acute
[2017-06-03] MEDS: amLODIPine 5 MG TAB PO SCH (21:38)
[2017-06-03] MEDS: QUEtiapine 50 MG TAB PO SCH (21:38)
[2017-06-03 21:41] LABS: Glucose,Whole Blood 170 mg/dL (75-99)
[2017-06-04] MEDS: methylPREDNISolone SOD SUCCI 40 MG/ML 1 ML VIAL IV SCH ×4 (00:54→22:58)
[2017-06-04 04:32] LABS: Basophils % (A) 0 %; CH 30.9; CHCM 32.5; Eosinophils % (A) 0 %; HCT 38.2 % (39.0-53.0); HDW 2.43; HGB 12.5 gm/dL (13.0-17.5); Luc # (Auto) 0.08; Luc % (Auto) 1; Lymphocytes # (A) 0.6 k/uL (1.0-4.8); Lymphocytes % (A) 4 %; MCH 31.3 pg (25.0-35.0); MCHC 32.8 g/dL (31.0-37.0); MCV 95.5 fL (80.0-100.0); Mean Platelet Volume 7.3; Monocytes # (A) 0.4 k/uL (0-1.0); Monocytes % (A) 2 %; Neutrophils # (A) 14.1 k/uL (1.3-7.7); Neutrophils % (A) 93 %; RDW 12.7 % (11.5-15.5); WBC 15.2 k/uL (3.8-10.6); WBC (Perox) 15.43
[2017-06-04 04:40] LABS: Anion Gap 4 mmol/L; Blood Urea Nitrogen 23 mg/dL (9-20); Calcium 7.9 mg/dL (8.4-10.2); Carbon Dioxide 26 mmol/L (22-30); Chloride 106 mmol/L (98-107); Glucose 143 mg/dL (74-99); Magnesium 2.2 mg/dL (1.6-2.3); Non-African American GFR(MDRD) >60 (>60 ml/min/1.73 sqM); Phosphorous 3.6 mg/dL (2.5-4.5); Potassium 4.1 mmol/L (3.5-5.1); Sodium 136 mmol/L (137-145)
[2017-06-04] MEDS: LORazepam 2 MG/ML SYRINGE IV PRN ×2 (05:15→07:10)
[2017-06-04] MEDS: HALOPERIDOL LACTATE 5 MG/ML 1 ML VIAL IM PRN (05:49)
[2017-06-04] MEDS: IPRATROPIUM-ALBUTEROL 3 ML NEB INHALATION SCH ×4 (07:21→21:00)
--- NOTE | 2017-06-04 07:29 | XR ---
EXAMINATION TYPE: XR chest 1V portable DATE OF EXAM: 06/04/2017 HISTORY: Shortness of breath. COMPARISON: 06/03/2017 TECHNIQUE: Single view of the chest is submitted. FINDINGS: Central venous line is unchanged in position. Demonstrated are scattered senescent parenchymal change. Right lower lobe infiltrate persists although is improving. Pigtail catheter remains in place right m edial lung base. No visible pneumothorax. The heart is stable. Hilar and mediastinal structures are within normal limits. Degenerative changes are seen of the dorsal spine. IMPRESSION: 1. Right lower lobe infiltrate persists although is improving. Pigtail catheter remains in place rig ht medial lung base. No visible pneumothorax.
[2017-06-04 07:37] LABS: Glucose,Whole Blood 143 mg/dL (75-99)
[2017-06-04] MEDS: ASPIRIN 81 MG CHEW PO SCH (08:14)
[2017-06-04] MEDS: METOPROLOL TARTRATE 50 MG TAB PO SCH ×3 (08:14→21:05)
[2017-06-04] MEDS: CLOPIDOGREL 75 MG TAB PO SCH (08:14)
[2017-06-04] MEDS: cefTRIAXone 2,000 MG in SODIUM CHLORIDE 0.9% 100 ML IVPB SCH (08:15)
[2017-06-04] MEDS: ESOMEPRAZOLE 20 MG in SODIUM CHLORIDE 0.9% 50 ML IVPB SCH (08:15)
[2017-06-04] MEDS: ENOXAPARIN 40 MG/0.4 ML SYRINGE SQ SCH (08:15)
[2017-06-04] MEDS: ATORVASTATIN 40 MG TAB PO SCH (08:15)
[2017-06-04] MEDS: INSULIN LISPRO (humaLOG) 300 UNIT/3 ML VIAL SQ SCH ×4 (08:16→21:10)
[2017-06-04 12:16] LABS: Glucose,Whole Blood 212 mg/dL (75-99)
[2017-06-04] MEDS: FOLIC ACID 1 MG TAB PO SCH (12:17)
[2017-06-04] MEDS: THIAMINE 100 MG TAB PO SCH (12:17)
--- NOTE | 2017-06-04 12:40 | P.PN ---
Subjective 52-year-old gentleman, known history of alcoholism, presented to the hospital because of increased chest pain. He was found to have ST segment elevation myocardial infarction. The patient was taken to the [facility] on an emergent basis and he had stents placed into his LAD for a 70% LAD lesion. He was also found to have a large pericardial effusion and leukocytosis. He was seen by surgery and he underwent a bedside pericardiocentesis and total of 380 mL of fluid was drained from the pericardial space. Initial cultures are growing up hemolytic strep and the patient is or the being covered with a combination of Rocephin and vancomycin. Note that his initial chest x-ray on admission showed a right upper lobe consolidation and subsequent x-ray showed diffuse lateral pulmonary infiltrates typical of an underlying ARDS. The patient also went into delirium tremens. Overnight she had become quite a bit agitated and he had required a total of 8 mg of Ativan throughout the night. This morning, the patient is lethargic, and 2. restraints, confused and sometimes agitated. He is on a BiPAP at a pressure of 12/5 cm of water with an FiO2 of 100%. Earlier he was on a percent and he had to be brought up to 100% to maintain a saturation above 90%. He has good pulses in all 4 extremities. He is producing approximately 50 mL an hour. He is on normal saline at the rate of 75 mL an hour. White cell count remains elevated at 28.6. He is on no pressors for now. No significant electrode abnormalities. No acidosis. Echocardiogram that was done earlier showed a preserved LV function. The patient has a pericardial tube in place and total amount of output that was drained this morning is around 125, brownish to yellowish pericardial fluid. Note that the fluid analysis was done earlier showed elevated LDH and protein. White cell count is also elevated at 44,000 with 92% on a nuclear white cells. On 05/28/2017 the patient remains intubated on a mechanical ventilator. He is sedated with Diprivan and is calm and comfortable. Spiked a high rate of the prevent, the patient is still easily arousable. Hemodynamically stable on no pressors. He remains on a mechanical ventilator on assist control mode at the rate of 24, tidal volume 500, FiO2 of 50% and a PEEP of 8. The blood gases from this morning showed a pH of 7.42 with a pCO2 of 36 and pO2 of 69. I reviewed the chest x-ray from today that shows no interval change and there is diffuse breath and pulmonary infiltrates and ET tube is in a good location. The CAT scan of the chest that was done yesterday showed development of a loculated pleural effusion on the right more so a large pocket sitting in the posterior aspect of the right hemithorax which I think it's accessible for percutaneous drainage and for that reason I discussed this case with interventional radiology and will going to proceed with this procedure despite the fact that the patient on a combination of aspirin and Plavix. I think the benefits of this procedure will outweigh the risk. Meanwhile a bronchoscopy and the bronchioloalveolar lavage was done yesterday and the cultures are all negative thus far. The patient's pericardial effusion culture showed strep pneumonia which is sensitive to all antibiotics and the patient complications on a combination of vancomycin and Rocephin. Vancomycin may be ultimately discontinued and this will be discussed further with infectious disease. He will be started on tube feeds today. He is otherwise doing well and there has been no other issues over the past 24 hours. On 05/29/2017 the patient is being seen in the follow-up. The patient remains intubated on a mechanical ventilator and sedated and calm and comfortable. As mentioned earlier, there was a concern of a empyema. Based on that I talked interventional radiology and were able to drain the loculated pleural fluid on the right. The fluid was nonpurulent. The white cell count within the fluid was nonelevated and the cultures still pending for now. The procedure was not the bedside successfully a total of 600 mL of fluid was aspirated from the right lung. At this point in time the right-sided chest tube is connected to Pleur-evac and is not draining actively. The chest x-ray however shows marked improvement in the pneumonia and in the loculated pleural fluid that was seen on the right. ET tube is sitting high in the trachea. The patient is an assist -control mode at the rate of 24, tidal volume of 500, FiO2 of 50% and a PEEP of 8. Morning blood gases showed a pH of 7.41 with a pCO2 of 38 and pO2 of 152 and there has been marked improvement in his oxygenation. The only positive cultures from his pericardial fluid which is strep pneumo and the patient on high-dose Rocephin. Vancomycin was discontinued by infectious disease as the strep pneumo has been sensitive. He was dynamically stable. Tolerating his tube feeds. Was given a sedation holiday this morning and he was able to wake up and follow commands appropriately. The pericardial tube is not draining at this point. On 05/30/2017 I'm seeing this patient in follow-up. The patient is doing well. I reviewed the chest x-ray and there is some residual infiltration of however they x-ray findings have essentially improved and the patient is improving in terms of his pneumonia. The right-sided pleural effusion was also drained percutaneously with a smaller chest tube by interventional radiology. The fluid cultures of been all negative. The blood culture been negative. The pericardial effusion was positive for Streptococcus pneumonia. The patient is on IV Rocephin 2 g every 24 hours. The patient has a pericardial catheter in place and yesterday the drainage was only 20-30 mL, none for today. This morning, the patient was taken off sedation. He woke up appropriately. Unable to complete the. He has breathing trial as the patient was becoming more and more agitated and anxious and his blood pressure was fluctuating and he was becoming tachypneic. At that point I noted the patient had adequate strength an adequate gag and cough reflex. He is at which her breathing index was also reasonable. At that point I decide to extubate this patient without giving him is participating trial. He extubated successfully and currently is on 5 L oxygen by nasal cannula. This was subsequently weaned down to 3 L. Hemodynamically stable. No chest pain. No other significant issues overnight. The patient is somewhat lethargic over he is still recovering from his underlying sedation. No tremors. No agitation. No signs of delirium tremens at this point. On 05/31/2017 I'm seeing this patient in follow-up. As mentioned earlier, the patient was extubated yesterday without any major difficulties. At the later stage the patient started having symptoms of delirium. He was on and off confused throughout the night and he sees a total of 6 mg of IV Ativan for delirium tremens. This morning, he is not oriented to time and place. His multiple of her extremities. No headache. The antibiotics are still unchanged and the patient is on high dose Rocephin regarding pneumococcal pneumonia and acute pneumococcal pericarditis. The pericardial catheter has drained 80 mL yesterday and there is no active drainage from the right-sided chest tube. Chest x-ray still showing breath and pulmonary infiltrates although improved compared to the initial chest x-ray from May 28. The patient is resting comfortably in bed. No signs of respiratory distress. Active issues for now remains his altered mentation and the delirium tremens. Hemodynamically stable. On 06/01/2017 the patient remains extubated. The patient remains in the intensive care unit. Mentation is still impaired and the patient is still delirious and he is not fully recovered from his delirium tremens. He is not agitated at this point. He had received a total of 8 mg of Ativan since yesterday evening. He is breathing comfortably in bed. There pericardial tube has drained 80 mL today and I reviewed the CAT scan of the chest that showed a loculated right-sided pleural effusion measuring 9.5 x 4.6 x 6.4 cm in size and this is obviously smaller compared to the previous measurement. Additional smaller loculation was also seen. Tiny free flowing effusion is also present bilaterally. Several lymph nodes within the mediastinum largest being 13 mm in size and there is not a 14 mm right paratracheal lymph node also. The patient made on IV Rocephin however today he has developed a maculopapular rash over the anterior chest and back area which could be potentially an ALLERGIC reaction. Cephalosporin ALLERGY needs to be considered. Hemodynamically stable. Producing adequate amount of urine output. He is not eating much over his swallowing is medication. White cell count is at 12.3. The rest of the electrodes are within normal limits. No new cultures are available at this point. On 06/02/2017 the patient remains extubated. The patient is still confused although he seems to be much less agitated and not requiring as much Ativan. He received only 2 mg of Ativan yesterday. Much more responsive today. Not diaphoretic and resting comfortably in bed. Oxygen has been taken off and his pulse ox on room air is 95%. Note that ultimately placed was applied to these chest tube yesterday and there was a drainage of 300 mL of pleural fluid post unclamping of the chest tube. The pericardial catheter has been removed. The patient is on IV Rocephin. His rash has subsided. He is on IV Solu-Medrol. Hemodynamically stable. White cell count remains low. He remains afebrile. He is not eating as much over he can swallow his pills. He went into a episode of atrial fibrillation yesterday and he quite Cardizem bolus and drip and currently is back to normal sinus rhythm and he is on Toprol 25 mg by mouth 3 times a day. Physical therapy will be involved in his case today. On 06/03/2017, the activation remains ongoing delirium tremens. Based on his increased agitation and restlessness overnight the patient was given a total of 8 mg of Ativan. This morning he was more so sleepy. His neurologic exam was nonfocal. A CAT scan of the brain was done that showed no acute abnormalities. As mentioned earlier, he received 2 alteplase treatment to his right lung so the small bore chest tube and the patient had approximately 300 mL of drainage following each application. This morning, I repeated a CAT scan of the chest and patient is found to have loculated pleural collection which has increased in size despite the pigtail catheter and there is also other loculated pleural fluid collection in the right lung with some increasing right lower lobe atelectasis. He remains afebrile. He is on IV Rocephin. Hemodynamically stable. No nausea. No vomiting. No abdominal pain. Oral intake remains low. He is able to swallow his pills. We'll discuss his findings with cardiothoracic surgery. It's reasonable to continue the out of place treatment for now in view of the worsening in loculation along the right chest. On 06/04/2017 the patient is able to sit up on a chair. Profoundly weak yet more interactive and less confused compared to yesterday. As mentioned earlier the CAT scan of the brain came back negative. Neurologic exam remains nonfocal. Another TPA treatment was given to this patient locally through his chest tube and this helped with the increased drainage and the patient put out more than 1000 MLS of pleural fluid following the administration of TPA. The patient is not having any respiratory distress at this point. The chest x-ray shows improvement in the volume status and much improvement in the right lower lobe opacity. Not having any chest pain. No fever. He is on IV Rocephin. CT surgeries on the case. Pericardial tube has been removed earlier as mentioned. Objective - Vital Signs Vital signs: Vital Signs Temp 98.3 F 06/04/17 08:00 Pulse 78 06/04/17 12:00 Resp 20 06/04/17 12:00 BP 109/67 06/04/17 12:00 Pulse Ox 96 06/04/17 12:00 Intake & Output 06/03/17 06/04/17 06/04/17 18:59 06:59 18:59 Intake Total 570 1080 1450 Output Total 2075 1160 350 Balance -1505 -80 1100 Weight 94 kg 94 kg Intake: IV 220 120 210 Esomeprazole 20 mg In 50 Sodium Chloride 0.9% 50 ml @ 100 mls/hr IVPB DAILY DIA[facility] Rx#:[id number] NS 110 120 60 Sodium Chloride 0.9% 1, 10 000 ml @ 50 mls/hr IV . Q20H [facility] Rx#:[id number] cefTRIAXone 2,000 mg In 100 100 Sodium Chloride 0.9% 100 ml @ 100 mls/hr IVPB Q24HR [facility] Rx#:[id number] Intake, IV Titration 150 Amount Esomeprazole 20 mg In 50 Sodium Chloride 0.9% 50 ml @ 100 mls/hr IVPB DAILY DIANA Rx#:[id number] Potassium Chloride 10 meq 100 In Water For Injection 1 100ml.bag @ 100 mls/hr IVPB Q1H DIANA Rx#: [id number] Oral 135 939 [id number] Output: Chest Tube Drainage 1360 450 20 Chest Tube Right 1360 450 20 Posterior Chest Urine 715 710 330 Other: Voiding Method Indwelling Catheter Indwelling Catheter Indwelling Catheter ABP, PAP, CO, CI - Last Documented Arterial Blood Pressure 136/66 - Exam T Head exam was generally normal. There was no scleral icterus or corneal arcus. Mucous membranes were moist..Neck was supple and without jugular venous distension, thyromegaly, or carotid bruits. Carotids were easily palpable bilaterally. There was no adenopathy. Orogastric and oral tracheal tube are both in place.Head exam was generally normal. There was no scleral icterus or corneal arcus. Mucous membranes were moist. Lungs sounds are diminished bilaterally. Breath sounds are equal and symmetrical however. No wheezes. The right-sided chest tube is still in place. This is connected to a Pleur- evac. Heart sounds are regular, positive S1-S2 and there is a friction rub can be appreciated over the anterior chest wall. The abdomen was soft, non-tender, and without masses, organomegaly, or appreciable enlargement of the abdominal aorta.Examination of the extremities revealed easily palpable radial, femoral and pedal pulses. There was no cyanosis, clubbing or edema. Neurologically , the patient is moving all 4 extremities. Periodic confusion is still seen. His more lethargic under the effect of Ativan - Labs CBC & Chem 7: 06/04/17 04:10 06/04/17 04:10 Labs: Abnormal Lab Results - Last 24 Hours (Table) 06/03/17 06/03/17 06/04/17 Range/Units 17:10 21:40 04:10 WBC 15.2 H (3.8-10.6) k/uL RBC 4.00 L (4.30-5.90) m/uL Hgb 12.5 L (13.0-17.5) gm/dL Hct 38.2 L (39.0-53.0) % Neutrophils # 14.1 H (1.3-7.7) k/uL Lymphocytes # 0.6 L (1.0-4.8) k/uL Sodium (137-145) mmol/L BUN (9-20) mg/dL Creatinine (0.66-1.25) mg/dL Glucose (74-99) mg/dL POC Glucose (mg/dL) 112 H 170 H (75-99) mg/dL Calcium (8.4-10.2) mg/dL 06/04/17 06/04/17 06/04/17 Range/Units 04:10 07:34 12:12 WBC (3.8-10.6) k/uL RBC (4.30-5.90) m/uL Hgb (13.0-17.5) gm/dL Hct (39.0-53.0) % Neutrophils # (1.3-7.7) k/uL Lymphocytes # (1.0-4.8) k/uL Sodium 136 L (137-145) mmol/L BUN 23 H (9-20) mg/dL Creatinine 0.60 L (0.66-1.25) mg/dL Glucose 143 H (74-99) mg/dL POC Glucose (mg/dL) 143 H 212 H (75-99) mg/dL Calcium 7.9 L (8.4-10.2) mg/dL Microbiology - Last 24 Hours (Table) 05/27/17 11:50 Fungal Culture - Preliminary Bronchial Washings - Random Rachel albicans Assessment and Plan Plan: Assessment 1 acute hypoxic respiratory failure with development of diffuse breath and pulmonary infiltrates. CAT scan of the chest was reviewed and the findings are consistent with diffuse bilateral pneumonia with loculated right-sided pleural effusion with possibly empyema versus a complicated loculated parapneumonic fluids. A small bore chest tube was inserted to the right hemithorax and total of 600 mL the pleural fluid was aspirated. The cultures been negative at this point. While, there has been significant improvement in the pulmonary infiltration and oxygenation on today's evaluation. The patient remains intubated on a mechanical ventilator. On 05/30/2017, the patient was taken off sedation and he demonstrated adequate ability to maintain his airways patent and he had adequate neurologic function with the patient woke up and he was following commands moving all 4 extremities without any limitation. At that point the decision was to extubate this patient and this was a successful extubation. Currently is on 3 L of oxygen by nasal cannula. On 05/31/2017, the patient remains extubated. A repeat CAT scan of the chest will be obtained to follow-up on the loculated pleural effusion and decided the patient may benefit from an intrapleural TPA. We'll keep the pericardial catheter in place as long as there is still on and off drainage as the patient has drained approximately 80 mL yesterday. The patient is extubated. The patient on IV Rocephin. On 06/01/2017, the CAT scan of the chest was reviewed and the smaller chest tube is still in a good location however it is not draining a lot. Based on this, alteplase will be infused to enhance further drainage from the loculated right-sided pleural effusion. On 06/02/2017 chest x-ray findings are essentially stable. Nevertheless, there has been improved drainage from his right lung and I would consider repeating the alteplase today to improve the drainage and hopefully evacuate that the loculated right-sided pleural effusion. As such the alteplase will be repeated today and we'll monitor the output and repeat chest x-ray in the morning. On 06/03/2017, the patient shows increased loculation and atelectasis of the right lung and the patient has already received 2 alteplase treatment with subsequent worsening. He is an IV Rocephin. No signs of sepsis. Not in acute respiratory distress at this point. On 06/04/2017, the patient is post third TPA treatment which further improve the drainage from the right lung and the patient is feeling well and the chest x -ray shows improvement in the right lower lobe opacity/effusion. We'll continue monitoring the output from the chest tube as long as there is ongoing drainage. 2 acute STEMI status post emergent cardiac catheterization and stenting of the LAD 3 acute infectious pneumococcal pericarditis, with a pericardial effusion/ infected pericardial fluid with cultures growing strep pneumo, status post percutaneous drainage of the pericardial effusion at the bedside and the patient has a triple lumen catheter placed within the pericardium. The output from the pericardial tube is minimal at this point, and the tube was pulled out yesterday by CT surgery. 4 alcoholism 5 delirium tremens , active 6 Maculopapular rash, resolved with Solu-Medrol 7 paroxysmal atrial fibrillation, current rhythm is sinus on beta blockers Plan Encouraged use of incentive spirometer. Repeat chest x-ray in the morning. Add thiamine. At full 8. Ativan as needed for agitation. Advance diet. Physical therapy. Sit up on a chair. We'll continue to follow.
--- NOTE | 2017-06-04 16:41 | P.PN ---
Subjective Principal diagnosis: Septic pericarditis, pneumonia and altered mental status This patient was admitted with evidence of pericarditis ischemic syndrome. Patient had a stent placement. Subsequently, patient had a pericardial tube placement for drainage of the pericardial effusion. Patient also developed pneumonia and delirium tremens related to alcohol withdrawal. Patient seemed to be related more alert today. He is sitting up in the chair. Patient is walking with help. Hemodynamically stable. No recurrence of atrial fibrillation. We'll going to repeat the echocardiogram to assess pericardial effusion tomorrow. Overall, patient seemed to be relatively stable Objective - Vital Signs Vital signs: Vital Signs Temp 98.4 F 06/04/17 16:00 Pulse 90 06/04/17 16:25 Resp 18 06/04/17 16:00 BP 132/70 06/04/17 16:00 Pulse Ox 97 06/04/17 16:14 Intake & Output 06/03/17 06/04/17 06/04/17 18:59 06:59 18:59 Intake Total 570 1080 1740 Output Total 2075 1160 465 Balance -1505 -80 1275 Weight 94 kg 94 kg Intake: IV 220 120 250 Esomeprazole 20 mg In 50 Sodium Chloride 0.9% 50 ml @ 100 mls/hr IVPB DAILY [facility] Rx#:[id number] NS 110 120 100 Sodium Chloride 0.9% 1, 10 000 ml @ 50 mls/hr IV . Q20H [facility] Rx#:[id number] cefTRIAXone 2,000 mg In 100 100 Sodium Chloride 0.9% 100 ml @ 100 mls/hr IVPB Q24HR [facility] Rx#:[id number] Intake, IV Titration 150 Amount Esomeprazole 20 mg In 50 Sodium Chloride 0.9% 50 ml @ 100 mls/hr IVPB DAILY [facility] Rx#:[id number] Potassium Chloride 10 meq 100 In Water For Injection 1 100ml.bag @ 100 mls/hr IVPB Q1H [facility] Rx#: [id number] Oral 319 043 1093 Output: Chest Tube Drainage 1360 450 20 Chest Tube Right 1360 450 20 Posterior Chest Urine 714 150 445 Other: Voiding Method Indwelling Catheter Indwelling Catheter Urinal ABP, PAP, CO, CI - Last Documented Arterial Blood Pressure 136/66 - Exam GENERAL EXAM: Patient is sleepy and sluggish but arousable HEENT: Normocephalic. Normal reaction of pupils, equal size, normal range of extraocular motion. No erythema or exudates in the throat. NECK: No masses, no nuchal rigidity. CHEST: No chest wall deformity. LUNGS: Equal air entry with no crackles or wheeze. HEART: S1 and S2 normal with no audible mumurs or gallops. Regular rhythm, femorals equal on both sides.. ABDOMEN: No hepatosplenomegaly, normal bowel sounds, no guarding or rigidity. SKIN: No rashes CENTRAL NERVOUS SYSTEM: Deferred EXTREMITIES: No cyanosis, clubbing or edema. - Labs CBC & Chem 7: 06/04/17 04:10 06/04/17 04:10 Labs: Abnormal Lab Results - Last 24 Hours (Table) 06/03/17 06/03/17 06/04/17 Range/Units 17:10 21:40 04:10 WBC 15.2 H (3.8-10.6) k/uL RBC 4.00 L (4.30-5.90) m/uL Hgb 12.5 L (13.0-17.5) gm/dL Hct 38.2 L (39.0-53.0) % Neutrophils # 14.1 H (1.3-7.7) k/uL Lymphocytes # 0.6 L (1.0-4.8) k/uL Sodium (137-145) mmol/L BUN (9-20) mg/dL Creatinine (0.66-1.25) mg/dL Glucose (74-99) mg/dL POC Glucose (mg/dL) 112 H 170 H (75-99) mg/dL Calcium (8.4-10.2) mg/dL 06/04/17 06/04/17 06/04/17 Range/Units 04:10 07:34 12:12 WBC (3.8-10.6) k/uL RBC (4.30-5.90) m/uL Hgb (13.0-17.5) gm/dL Hct (39.0-53.0) % Neutrophils # (1.3-7.7) k/uL Lymphocytes # (1.0-4.8) k/uL Sodium 136 L (137-145) mmol/L BUN 23 H (9-20) mg/dL Creatinine 0.60 L (0.66-1.25) mg/dL Glucose 143 H (74-99) mg/dL POC Glucose (mg/dL) 143 H 212 H (75-99) mg/dL Calcium 7.9 L (8.4-10.2) mg/dL Microbiology - Last 24 Hours (Table) 05/27/17 11:50 Fungal Culture - Preliminary Bronchial Washings - Random Rachel albicans Assessment and Plan (1) Paroxysmal atrial fibrillation Status: Acute (2) COPD (chronic obstructive pulmonary disease) Status: Acute (3) Pericardial effusion Status: Acute (4) Purulent pericarditis Status: Acute (5) Right upper lobe pneumonia Status: Acute Plan: Patient seemed to be overall showing some improvement especially in mental status. Physically remains weak. Vital signs are stable. Patient will have an echocardiogram tomorrow. We'll increase activity as tolerated
--- NOTE | 2017-06-04 17:19 | P.PN ---
Subjective Mr. Araujo is a 52-year-old male with a past medical history of chronic low back pain, hypertension, alcohol abuse and nicotine dependence coming into the hospital with a chief complaint of chest pain. Patient has history of chronic low back pain and pain of his neck that has been going on but for the past 5 days his symptoms have worsened. Patient's chest pain got worse and he was complaining of 10 out of 10 and so called the EMS. The paramedics did perform an EKG which was suspicious for ST elevation LA. He was given aspirin and nitroglycerin and transferred to [facility] for further evaluation. So the client solutions director light truck driver Dr. GRICELDA Gonzales was informed, who did an emergent cardiac catheterization. The patient had a stent placed in his LAD and was also noted to have a large pericardial effusion. So CT surgeon Dr. Multani came in and did a pericardiocentesis. There was 380 mL of fluid drained out. And the patient has been transferred to the ICU for further management and care. On 05/26/17- on the night of 05/26 the patient became very combative and was trying to put all his lines and the pericardial catheter. The patient was placed on a CIWA scale and given 10 mg of Ativan without much improvement in his symptoms. So eventually he was given Haldol after which the patient did calm down. Around 230 ml of fluid was drained from the pericardium. On 05/27/17 - patient was pretty confused, agitated and was on restraints , he was placed on BiPAP and as he was desaturating. Dr. Angel had to intubate the patient around 10 AM today due to impending respiratory failure due to ARDS. Patient also had a bronchoscopy done by Dr. Angel this morning. Patient's pericardial fluid came back to be positive for Streptococcus and he has been started on ceftriaxone. On 05/28/2017- patient still remains intubated. He is on a Levophed drip. Sedated on propofol. Patient had thoracentesisdone today and 400 mL of fluid was drained. And the chest tube was placed. 05/29/2017 Patient failed a weaning trial this morning. With sedation holiday patient is able to move all his 4 extremities and follows simple commands. Cultures from bronchial washings showed no growth for the past 24 hours. On 05/30/17 - pt has been extubated successfully and is saturating above 90 % on 3 lt of nasal canula. on 05/31/17 Pt. is confused but able to answer slowly. resp status improved. still on chest tube and pericardial drain tube. 06/01/17 pt is confused able to answer questions no overnight events reported tries to get out of bed ROS_ deferred due to pt's confusion 06/02/2017 Patient is confused however is able to answer some questions appropriately Denies having any additional problems Overnight the patient had changed into atrial fibrillation is currently maintained on a Cardizem drip 06/03/17 confused no overnight events TPA is infused due to complicated effusion, loculated 06/04/17 still confused however improving no overnight events reported - Exam GEN. APPEARANCE: no acute distress. Extubted HEAD EXAM: Atraumatic EYE EXAM: No pallor no icterus ENT EXAM: ET tube in place NECK EXAM: No carotid bruit. No thyromegaly RESPIRATORY EXAM: Diminished breath sounds bilaterally. Coarse breath sounds in all lung [place] with crackles. Right chest tube in place. CARDIOVASCULAR EXAM: regular S1 and S2 heard. GI/ABDOMINAL EXAM: Soft nontender. No guarding or rigidity. EXTREMITIES EXAM: No cyanosis, no swelling, no edema. NEUROLOGICAL EXAM: confused SKIN EXAM: warm to touch. No rash. Assessment and Plan Plan: ASSESSMENT Septic shock Streptococcal pericarditis Acute hypoxic respiratory failure secondary to ARDS Pneumonia right upper lobe ST elevation LA status post stenting of LAD Pericardial effusion Alcohol withdrawal delirium tremens Chronic liver disease Chronic alcohol abuse Chronic nicotine dependence New-onset atrial fibrillation with rapid ventricular rate PLAN NSR Seroquel bedtime continue with full ICU support delirium is still noted chest tube management per CTS ABX with rocephin DVT prophylaxis Objective - Vital Signs Vital signs: Vital Signs Temp 98.4 F 06/04/17 16:00 Pulse 90 06/04/17 16:25 Resp 18 06/04/17 16:00 BP 132/70 06/04/17 16:00 Pulse Ox 97 06/04/17 16:14 Intake & Output 06/03/17 06/04/17 06/04/17 18:59 06:59 18:59 Intake Total 570 1080 1740 Output Total 5448 1160 465 Balance -1505 -80 1275 Weight 94 kg 94 kg Intake: IV 220 120 250 Esomeprazole 20 mg In 50 Sodium Chloride 0.9% 50 ml @ 100 mls/hr IVPB DAILY DIANA Rx#:[id number] NS 110 120 100 Sodium Chloride 0.9% 1, 10 000 ml @ 50 mls/hr IV . Q20H DIANA Rx#:[id number] cefTRIAXone 2,000 mg In 100 100 Sodium Chloride 0.9% 100 ml @ 100 mls/hr IVPB Q24HR DIANA Rx#:[id number] Intake, IV Titration 150 Amount Esomeprazole 20 mg In 50 Sodium Chloride 0.9% 50 ml @ 100 mls/hr IVPB DAILY DIANA Rx#:[id number] Potassium Chloride 10 meq 100 In Water For Injection 1 100ml.bag @ 100 mls/hr IVPB Q1H DIANA Rx#: [id number] Oral 939 447 9150 Output: Chest Tube Drainage 1360 450 20 Chest Tube Right 1360 450 20 Posterior Chest Urine 715 710 445 Other: Voiding Method Indwelling Catheter Indwelling Catheter Urinal ABP, PAP, CO, CI - Last Documented Arterial Blood Pressure 136/66 - Labs CBC & Chem 7: 06/04/17 04:10 06/04/17 04:10 Labs: Abnormal Lab Results - Last 24 Hours (Table) 06/03/17 06/04/17 06/04/17 Range/Units 21:40 04:10 04:10 WBC 15.2 H (3.8-10.6) k/uL RBC 4.00 L (4.30-5.90) m/uL Hgb 12.5 L (13.0-17.5) gm/dL Hct 38.2 L (39.0-53.0) % Neutrophils # 14.1 H (1.3-7.7) k/uL Lymphocytes # 0.6 L (1.0-4.8) k/uL Sodium 136 L (137-145) mmol/L BUN 23 H (9-20) mg/dL Creatinine 0.60 L (0.66-1.25) mg/dL Glucose 143 H (74-99) mg/dL POC Glucose (mg/dL) 170 H (75-99) mg/dL Calcium 7.9 L (8.4-10.2) mg/dL 06/04/17 06/04/17 Range/Units 07:34 12:12 WBC (3.8-10.6) k/uL RBC (4.30-5.90) m/uL Hgb (13.0-17.5) gm/dL Hct (39.0-53.0) % Neutrophils # (1.3-7.7) k/uL Lymphocytes # (1.0-4.8) k/uL Sodium (137-145) mmol/L BUN (9-20) mg/dL Creatinine (0.66-1.25) mg/dL Glucose (74-99) mg/dL POC Glucose (mg/dL) 143 H 212 H (75-99) mg/dL Calcium (8.4-10.2) mg/dL Microbiology - Last 24 Hours (Table) 05/27/17 11:50 Fungal Culture - Preliminary Bronchial Washings - Random Rachel albicans
[2017-06-04 17:30] LABS: Glucose,Whole Blood 129 mg/dL (75-99)
[2017-06-04] MEDS: QUEtiapine 50 MG TAB PO SCH (21:05)
[2017-06-04] MEDS: amLODIPine 5 MG TAB PO SCH (21:05)
[2017-06-04 21:11] LABS: Glucose,Whole Blood 161 mg/dL (75-99)
--- NOTE | 2017-06-04 22:13 | P.PN ---
Subjective Principal diagnosis: Purulent pericarditis This is a 52-year-old male who presented to [facility] emergency center on May 25 due to chest pain that had been going on for 5 days and worsening. Patient was found to have ST elevation and was taken to the animal laboratory helper with Dr. GRICELDA Gonzales and found to have a 60-70% lesion in the LAD and was subsequently stented. Patient also was found to have a large pericardial effusion and was started on Zosyn and Levaquin and admitted to the intensive care unit. He underwent a bedside echo guided pericardiocentesis and insertion of a pericardial drain done on May 25 with removal of 380 ML's of cloudy tannish fluid. Yesterday he had 225 mL removed in today 125 mL. Chest x -ray showed cardiomegaly, right upper lobe consolidation and bibasilar at infiltrate or atelectasis. He is also followed by Dr. Angel from pulmonary medicine and patient was on BiPAP this morning pulseox was 80% with agitation and confusion and ended up being intubated today. He has presented with a temperature of 101.1, white count of 29.7, sodium 123, blood sugar 314, lactic acid 2.7. Urinalysis was cloudy, protein 1+, blood moderate, leukocyte esterase trace, wbc's 15, clumps rare bacteria rare. Urine culture is in progress and blood cultures status received. Pericardial fluid alphahemolytic strep. Patient has history of drinking 18 beers per day and is on the CIWA protocol. Bronchoscopy was performed. Patient does have a chest tube now in place with decreasing amounts of drainage. Little drainage from the pericardial drain patient has tolerated extubation well, confusion is improved no active hallucinations. Objective - Vital Signs Vital signs: Vital Signs Temp 97.7 F 06/04/17 20:00 Pulse 90 06/04/17 21:12 Resp 16 06/04/17 20:00 BP 132/67 06/04/17 20:00 Pulse Ox 93 L 06/04/17 20:00 Intake & Output 06/04/17 06/04/17 06/05/17 06:59 18:59 06:59 Intake Total 1080 1870 Output Total 1160 540 Balance -80 1330 Weight 94 kg 94 kg Intake: IV 120 260 Esomeprazole 20 mg In 50 Sodium Chloride 0.9% 50 ml @ 100 mls/hr IVPB DAILY DIANA Rx#:[id number] NS 120 110 cefTRIAXone 2,000 mg In 100 Sodium Chloride 0.9% 100 ml @ 100 mls/hr IVPB Q24HR DIANA Rx#:[id number] Oral 960 1610 Output: Chest Tube Drainage 450 20 Chest Tube Right 450 20 Posterior Chest Urine 710 520 Other: Voiding Method Indwelling Catheter Urinal ABP, PAP, CO, CI - Last Documented Arterial Blood Pressure 136/66 - Exam Gen: This is a 52-year-old male. Patient is now extubated but is not a good historian HEENT: Head is atraumatic, normocephalic. Sclerae is anicteric. Dentition is in poor order NECK: Supple. No JVD. No lymphadenopathy. No thyromegaly. LUNGS: Diminished bilaterally with scattered crackles. Decreased breath sounds especially to the right base, chest tube is in place with improved aeration right base. HEART: Regular rate and rhythm. No murmur. pericardial tube removed. No crunch or crackle is heard 70 mL noted for drainage ABDOMEN: Soft. Bowel sounds are present. No masses. No tenderness. EXTREMITIES: No pedal edema. No calf swelling NEUROLOGICAL: The patient is extubated but remains a poor historian. But did move upper and lower extremities.no hallucinations Skin is without rash or visualized breakdown - Labs CBC & Chem 7: 06/04/17 04:10 06/04/17 04:10 Labs: Abnormal Lab Results - Last 24 Hours (Table) 06/03/17 06/04/17 06/04/17 Range/Units 21:40 04:10 04:10 WBC 15.2 H (3.8-10.6) k/uL RBC 4.00 L (4.30-5.90) m/uL Hgb 12.5 L (13.0-17.5) gm/dL Hct 38.2 L (39.0-53.0) % Neutrophils # 14.1 H (1.3-7.7) k/uL Lymphocytes # 0.6 L (1.0-4.8) k/uL Sodium 136 L (137-145) mmol/L BUN 23 H (9-20) mg/dL Creatinine 0.60 L (0.66-1.25) mg/dL Glucose 143 H (74-99) mg/dL POC Glucose (mg/dL) 170 H (75-99) mg/dL Calcium 7.9 L (8.4-10.2) mg/dL 06/04/17 06/04/17 06/04/17 Range/Units 07:34 12:12 16:53 WBC (3.8-10.6) k/uL RBC (4.30-5.90) m/uL Hgb (13.0-17.5) gm/dL Hct (39.0-53.0) % Neutrophils # (1.3-7.7) k/uL Lymphocytes # (1.0-4.8) k/uL Sodium (137-145) mmol/L BUN (9-20) mg/dL Creatinine (0.66-1.25) mg/dL Glucose (74-99) mg/dL POC Glucose (mg/dL) 143 H 212 H 129 H (75-99) mg/dL Calcium (8.4-10.2) mg/dL 06/04/17 Range/Units 21:10 WBC (3.8-10.6) k/uL RBC (4.30-5.90) m/uL Hgb (13.0-17.5) gm/dL Hct (39.0-53.0) % Neutrophils # (1.3-7.7) k/uL Lymphocytes # (1.0-4.8) k/uL Sodium (137-145) mmol/L BUN (9-20) mg/dL Creatinine (0.66-1.25) mg/dL Glucose (74-99) mg/dL POC Glucose (mg/dL) 161 H (75-99) mg/dL Calcium (8.4-10.2) mg/dL Laboratory Results WBC 15.2 k/uL (3.8-10.6) H 06/04/17 04:10 RBC 4.00 m/uL (4.30-5.90) L 06/04/17 04:10 Hgb 12.5 gm/dL (13.0-17.5) L 06/04/17 04:10 Hct 38.2 % (39.0-53.0) L 06/04/17 04:10 MCV 95.5 fL (80.0-100.0) 06/04/17 04:10 MCH 31.3 pg (25.0-35.0) 06/04/17 04:10 MCHC 32.8 g/dL (31.0-37.0) 06/04/17 04:10 RDW 12.7 % (11.5-15.5) 06/04/17 04:10 Plt Count 367 k/uL (150-450) 06/04/17 04:10 Neutrophils % 93 % 06/04/17 04:10 Neutrophils % (Manual) 54.5 % 05/26/17 05:35 Band Neutrophils % 39.0 % 05/26/17 05:35 Lymphocytes % 4 % 06/04/17 04:10 Lymphocytes % (Manual) 4.5 % 05/26/17 05:35 Monocytes % 2 % 06/04/17 04:10 Monocytes % (Manual) 1.5 % 05/26/17 05:35 Eosinophils % 0 % 06/04/17 04:10 Basophils % 0 % 06/04/17 04:10 Metamyelocytes % 0.5 % 05/26/17 05:35 Neutrophils # 14.1 k/uL (1.3-7.7) H 06/04/17 04:10 Neutrophils # (Manual) 20.4 k/uL (1.3-7.7) H 05/26/17 05:35 Lymphocytes # 0.6 k/uL (1.0-4.8) L 06/04/17 04:10 Lymphocytes # (Manual) 1.0 k/uL (1.0-4.8) 05/26/17 05:35 Monocytes # 0.4 k/uL (0-1.0) 06/04/17 04:10 Monocytes # (Manual) 0.3 k/uL (0-1.0) 05/26/17 05:35 Eosinophils # 0.0 k/uL (0-0.7) 06/04/17 04:10 Basophils # 0.0 k/uL (0-0.2) 06/04/17 04:10 Nucleated RBCs 0 /100 WBC (0-0) 05/26/17 05:35 Manual Slide Review Performed 05/25/17 15:00 Toxic Granulation Present 05/26/17 05:35 RBC Morphology Normal 05/25/17 15:00 Polychromasia Present 05/26/17 05:35 Poikilocytosis (manual Present 05/26/17 05:35 Anisocytosis (manual) Present 05/26/17 05:35 PT 12.1 sec (9.0-12.0) H 05/28/17 10:45 INR 1.2 (<1.2) H 05/28/17 10:45 APTT 25.9 sec (22.0-30.0) 05/25/17 15:00 D-Dimer 1.32 mg/L FEU (<0.60) H 05/25/17 15:00 Sample Site kent 05/30/17 05:16 ABG pH 7.49 (7.35-7.45) H 05/30/17 05:16 ABG pCO2 34 mmHg (35-45) L 05/30/17 05:16 ABG pO2 85 mmHg (83-108) 05/30/17 05:16 ABG HCO3 26 mmol/L (21-25) H 05/30/17 05:16 ABG Total CO2 27 mmol/L (19-24) H 05/30/17 05:16 ABG O2 Saturation 97.0 % (94-97) 05/30/17 05:16 ABG Base Excess 2.4 mmol/L 05/30/17 05:16 ABG Hematocrit 48 % (34.0-46.0) H 05/25/17 16:00 FiO2 40 % 05/30/17 05:16 Sodium 136 mmol/L (137-145) L 06/04/17 04:10 Potassium 4.1 mmol/L (3.5-5.1) 06/04/17 04:10 Chloride 106 mmol/L (98-107) 06/04/17 04:10 Carbon Dioxide 26 mmol/L (22-30) 06/04/17 04:10 Anion Gap 4 mmol/L 06/04/17 04:10 BUN 23 mg/dL (9-20) H 06/04/17 04:10 Creatinine 0.60 mg/dL (0.66-1.25) L 06/04/17 04:10 Est GFR (MDRD) Af Amer >60 (>60 ml/min/1.73 sqM) 06/04/17 04:10 Est GFR (MDRD) Non-Af >60 (>60 ml/min/1.73 sqM) 06/04/17 04:10 Glucose 143 mg/dL (74-99) H 06/04/17 04:10 POC Glucose (mg/dL) 161 mg/dL (75-99) H 06/04/17 21:10 POC Glu Weight Inspector ID Fidelia Darling 06/04/17 21:[address] Glu mg/dL 105 mg/dL 05/25/17 15:00 Hemoglobin A1c 5.3 % (4.2-6.1) 05/25/17 15:00 Lactic Ac Sepsis Rflx Y 05/26/17 06:08 Plasma Lactic Acid Rob 2.7 mmol/L (0.7-2.0) H* 05/26/17 09:47 Calcium 7.9 mg/dL (8.4-10.2) L 06/04/17 04:10 Phosphorus 3.6 mg/dL (2.5-4.5) 06/04/17 04:10 Magnesium 2.2 mg/dL (1.6-2.3) 06/04/17 04:10 Total Bilirubin 2.2 mg/dL (0.2-1.3) H 05/25/17 15:00 AST 117 U/L (17-59) H 05/25/17 15:00 ALT 72 U/L (21-72) 05/25/17 15:00 Alkaline Phosphatase 75 U/L (38-126) 05/25/17 15:00 Lactate Dehydrogenase 861 U/L (313-618) H 05/28/17 04:30 Total Creatine Kinase 29 U/L (55-170) L 05/25/17 15:00 CK-MB (CK-2) 0.6 ng/mL (0.0-2.4) 05/25/17 15:00 CK-MB (CK-2) Rel Index 2.1 05/25/17 15:00 Troponin I 0.030 ng/mL (0.000-0.034) 05/26/17 05:35 Total Protein 4.8 g/dL (6.3-8.2) L 05/28/17 04:30 Albumin 3.2 g/dL (3.5-5.0) L 05/25/17 15:00 Urine Color Yellow 05/26/17 05:00 Urine Appearance Cloudy (Clear) 05/26/17 05:00 Urine pH 5.5 (5.0-8.0) 05/26/17 05:00 Ur Specific [place] 1.030 (1.001-1.035) 05/26/17 05:00 Urine Protein 1+ (Negative) H 05/26/17 05:00 Urine Glucose (UA) Negative (Negative) 05/26/17 05:00 Urine Ketones Negative (Negative) 05/26/17 05:00 Urine Blood Moderate (Negative) H 05/26/17 05:00 Urine Nitrite Negative (Negative) 05/26/17 05:00 Urine Bilirubin Negative (Negative) 05/26/17 05:00 Urine Urobilinogen 2.0 mg/dL (<2.0) 05/26/17 05:00 Ur Leukocyte Esterase Trace (Negative) H 05/26/17 05:00 Urine RBC 10 /hpf (0-5) H 05/26/17 05:00 Urine WBC 15 /hpf (0-5) H 05/26/17 05:00 Urine WBC Clumps Rare /hpf (None) H 05/26/17 05:00 Ur Squamous Epith Cells 1 /hpf (0-4) 05/26/17 05:00 Amorphous Sediment Rare /hpf (None) H 05/26/17 05:00 Urine Bacteria Rare /hpf (None) H 05/26/17 05:00 Urine Mucus Rare /hpf (None) H 05/26/17 05:00 Fluid Source Pleural 05/28/17 12:55 Fluid Color Yellow 05/25/17 18:20 Fluid Appearance Hazy 05/28/17 12:55 Fluid RBC 440 /uL 05/28/17 12:55 Fluid Nucleated Cells 170 /uL 05/28/17 12:55 Fluid Polynuclear WBCs 83 % 05/28/17 12:55 Fluid Mononuclear WBCs 17 % 05/28/17 12:55 Body Fluid Glucose Source Not Reportable 05/28/17 12:55 Fluid Glucose <4 mg/dL 05/28/17 12:55 Body Fluid Protein Source Not Reportable 05/28/17 12:55 Fluid Total Protein 4300 mg/dL 05/28/17 12:55 Body Fluid LDH Source Not Reportable 05/28/17 12:55 Fluid LDH 3388 U/L 05/28/17 12:55 Fluid Comment 05/25/17 18:20 Vancomycin Trough 24.6 ug/mL 05/28/17 04:30 C. difficile (EIA) Intrp Negative (Negative) 05/31/17 04:20 Virus Source See Below 05/27/17 11:50 Viral Test See Below 05/27/17 11:50 Virus Analysis Interp See Below 05/27/17 11:50 Blood Type O Positive 05/25/17 15:00 Blood Type Recheck No 05/25/17 15:00 Antibody Screen NEGATIVE 05/25/17 15:00 Transfuse Plasma 05/25/2017 05/25/17 15:00 Spec Expiration Date 05/28/2017 - 2300 05/25/17 15:00 Microbiology 05/27/17 11:50 Bronchial Washings - Random Fungal Culture - Preliminary Rachel albicans 05/28/17 12:55 Pleural Fluid Anaerobic Culture - Final 05/26/17 09:47 Blood Blood Culture - Final No Growth after 144 hours 05/26/17 09:47 Blood Blood Culture - Final No Growth after 144 hours 05/28/17 12:55 Pleural Fluid Gram Stain - Final 05/28/17 12:55 Pleural Fluid Body Fluid Culture - Final 05/25/17 18:20 Pericardial Fluid Anaerobic Culture - Final 05/27/17 11:50 Bronchial Washings - Random Gram Stain - Final 05/27/17 11:50 Bronchial Washings - Random Bronchial Washings Culture - Final Rachel albicans 05/27/17 11:50 Bronchial Washings - Random Acid Fast Bacilli Smear - Final 05/27/17 11:50 Bronchial Washings - Random Acid Fast Bacilli Culture - Preliminary 05/25/17 18:20 Pericardial Fluid Gram Stain - Final 05/25/17 18:20 Pericardial Fluid Body Fluid Culture - Final Streptococcus pneumoniae 05/26/17 05:00 Urine,Catheterized Urine Culture - Final 05/25/17 18:20 Pericardial Fluid Acid Fast Bacilli Smear - Final 05/25/17 18:20 Pericardial Fluid Acid Fast Bacilli Culture - Preliminary Assessment and Plan (1) Alcoholism Status: Acute (2) Acute hypoxemic respiratory failure Status: Acute (3) Purulent pericarditis Narrative/Plan: 52-year-old gentleman who has a history of alcoholism who has radiological evidence of pneumonia. It is highly likely that the pneumonia resulted in the purulent pericarditis via direct extension. alpha streptococci have been isolated. It has been noted to be Streptococcus pneumoniae that is not drug- resistant. Antibiotic therapy with Rocephin and vancomycin is being utilized at this time pending further data. Blood cultures negative so far. As noted the patient's alcohol withdrawal is being treated, and his respiratory failure hopefully respond well to antibiotic therapy, treatment of the purulent pericarditis and underlying sepsis. The extensive leukocytosis is directly related to the purulent pericarditis and pneumonia, and with this current underlying status of alcoholism is a good prognostic sign and he was able to generate a leukocytosis. Chest tube is been placed in further cultures are pending. Blood cultures negative so far. Overall there is been improvement of his status. He is now extubated and doing well off of the ventilator. He is comfortable and neurologically not agitated. Pericardial drain removed. Chest tube with minimal drainage. Is showing improvement. As noted cultures have Streptococcus pneumoniae and doing well with current antibiotic therapy of Rocephin. Will need several weeks of intravenous antibiotic therapy. The significant leukocytosis is improved Status: Acute
[2017-06-05 03:57] LABS: Glucose,Whole Blood 133 mg/dL (75-99)
[2017-06-05 06:25] LABS: Glucose,Whole Blood 112 mg/dL (75-99)
[2017-06-05] MEDS: INSULIN LISPRO (humaLOG) 300 UNIT/3 ML VIAL SQ SCH ×4 (06:27→21:35)
[2017-06-05 07:32] LABS: Basophils % (A) 0 %; CH 31.1; CHCM 32.8; Eosinophils % (A) 0 %; HCT 38.1 % (39.0-53.0); HDW 2.51; HGB 12.3 gm/dL (13.0-17.5); Luc % (Auto) 1; Lymphocytes # (A) 0.9 k/uL (1.0-4.8); Lymphocytes % (A) 7 %; MCH 30.6 pg (25.0-35.0); MCHC 32.2 g/dL (31.0-37.0); MCV 94.9 fL (80.0-100.0); Mean Platelet Volume 7.5; Monocytes # (A) 0.5 k/uL (0-1.0); Monocytes % (A) 4 %; Neutrophils # (A) 10.7 k/uL (1.3-7.7); Neutrophils % (A) 88 %; RBC 4.01 m/uL (4.30-5.90); RDW 12.6 % (11.5-15.5); WBC 12.1 k/uL (3.8-10.6); WBC (Perox) 12.76
[2017-06-05 08:07] LABS: Anion Gap 4 mmol/L; Blood Urea Nitrogen 19 mg/dL (9-20); Calcium 7.9 mg/dL (8.4-10.2); Carbon Dioxide 24 mmol/L (22-30); Chloride 108 mmol/L (98-107); Glucose 102 mg/dL (74-99); Magnesium 2.1 mg/dL (1.6-2.3); Non-African American GFR(MDRD) >60 (>60 ml/min/1.73 sqM); Phosphorous 2.9 mg/dL (2.5-4.5); Sodium 136 mmol/L (137-145)
[2017-06-05] MEDS: cefTRIAXone 2,000 MG in SODIUM CHLORIDE 0.9% 100 ML IVPB SCH (08:13)
[2017-06-05] MEDS: methylPREDNISolone SOD SUCCI 40 MG/ML 1 ML VIAL IV SCH (08:13)
[2017-06-05] MEDS: IPRATROPIUM-ALBUTEROL 3 ML NEB INHALATION SCH ×4 (08:13→19:52)
[2017-06-05] MEDS: ENOXAPARIN 40 MG/0.4 ML SYRINGE SQ SCH (08:26)
[2017-06-05] MEDS: ASPIRIN 81 MG CHEW PO SCH (08:26)
[2017-06-05] MEDS: ATORVASTATIN 40 MG TAB PO SCH (08:26)
[2017-06-05] MEDS: CLOPIDOGREL 75 MG TAB PO SCH (08:27)
[2017-06-05] MEDS: METOPROLOL TARTRATE 50 MG TAB PO SCH ×3 (08:27→21:42)
--- NOTE | 2017-06-05 08:42 | XR ---
EXAMINATION TYPE: XR chest 1V portable DATE OF EXAM: 06/05/2017 HISTORY: chest tube. REFERENCE: Previous study dated 06/04/2017. FINDINGS: Pigtail catheter in the right lung base appears to been pulled back. There is continuing atelectasis at the right lung base. There is some mild atelectasis at the left asya ng base. The heart is mildly enlarged. There is an improving right-sided effusion. IMPRESSION: 1. CARDIOMEGALY. 2. BIBASILAR ATELECTASIS. 3. IMPROVING RIGHT-SIDED EFFUSION.
--- NOTE | 2017-06-05 10:07 | ECHOF ---
Referral Reason:pericardial effusion MEASUREMENTS -------- HEIGHT: 152.4 cm WEIGHT: 93.9 kg BP: 131/71 FINDINGS -------- Sinus rhythm. Limited Study to Re-acess Pericardial Effusion. Overall left ventricular systolic function is normal with, an EF between 55 - 60 %. There is a small, generalized pericardial effusion present. CONCLUSIONS -------- 1. Limited Study to Re-acess Pericardial Effusion. 2. Overall left ventricular systolic function is normal with, an EF between 55 - 60 %. 3. There is a small, generalized pericardial effusion present. WATER PROJECT MANAGER: Tracy Heath RDCS
[2017-06-05] MEDS: ESOMEPRAZOLE 20 MG in SODIUM CHLORIDE 0.9% 50 ML IVPB SCH (10:23)
[2017-06-05 11:56] LABS: Glucose,Whole Blood 153 mg/dL (75-99)
[2017-06-05] MEDS: THIAMINE 100 MG TAB PO SCH (12:39)
[2017-06-05] MEDS: FOLIC ACID 1 MG TAB PO SCH (12:39)
--- NOTE | 2017-06-05 14:36 | P.PN ---
Subjective 52-year-old gentleman, known history of alcoholism, presented to the hospital because of increased chest pain. He was found to have ST segment elevation myocardial infarction. The patient was taken to the [facility] on an emergent basis and he had stents placed into his LAD for a 70% LAD lesion. He was also found to have a large pericardial effusion and leukocytosis. He was seen by surgery and he underwent a bedside pericardiocentesis and total of 380 mL of fluid was drained from the pericardial space. Initial cultures are growing up hemolytic strep and the patient is or the being covered with a combination of Rocephin and vancomycin. Note that his initial chest x-ray on admission showed a right upper lobe consolidation and subsequent x-ray showed diffuse lateral pulmonary infiltrates typical of an underlying ARDS. The patient also went into delirium tremens. Overnight she had become quite a bit agitated and he had required a total of 8 mg of Ativan throughout the night. This morning, the patient is lethargic, and 2. restraints, confused and sometimes agitated. He is on a BiPAP at a pressure of 12/5 cm of water with an FiO2 of 100%. Earlier he was on a percent and he had to be brought up to 100% to maintain a saturation above 90%. He has good pulses in all 4 extremities. He is producing approximately 50 mL an hour. He is on normal saline at the rate of 75 mL an hour. White cell count remains elevated at 28.6. He is on no pressors for now. No significant electrode abnormalities. No acidosis. Echocardiogram that was done earlier showed a preserved LV function. The patient has a pericardial tube in place and total amount of output that was drained this morning is around 125, brownish to yellowish pericardial fluid. Note that the fluid analysis was done earlier showed elevated LDH and protein. White cell count is also elevated at 44,000 with 92% on a nuclear white cells. On 05/28/2017 the patient remains intubated on a mechanical ventilator. He is sedated with Diprivan and is calm and comfortable. Spiked a high rate of the prevent, the patient is still easily arousable. Hemodynamically stable on no pressors. He remains on a mechanical ventilator on assist control mode at the rate of 24, tidal volume 500, FiO2 of 50% and a PEEP of 8. The blood gases from this morning showed a pH of 7.42 with a pCO2 of 36 and pO2 of 69. I reviewed the chest x-ray from today that shows no interval change and there is diffuse breath and pulmonary infiltrates and ET tube is in a good location. The CAT scan of the chest that was done yesterday showed development of a loculated pleural effusion on the right more so a large pocket sitting in the posterior aspect of the right hemithorax which I think it's accessible for percutaneous drainage and for that reason I discussed this case with interventional radiology and will going to proceed with this procedure despite the fact that the patient on a combination of aspirin and Plavix. I think the benefits of this procedure will outweigh the risk. Meanwhile a bronchoscopy and the bronchioloalveolar lavage was done yesterday and the cultures are all negative thus far. The patient's pericardial effusion culture showed strep pneumonia which is sensitive to all antibiotics and the patient complications on a combination of vancomycin and Rocephin. Vancomycin may be ultimately discontinued and this will be discussed further with infectious disease. He will be started on tube feeds today. He is otherwise doing well and there has been no other issues over the past 24 hours. On 05/29/2017 the patient is being seen in the follow-up. The patient remains intubated on a mechanical ventilator and sedated and calm and comfortable. As mentioned earlier, there was a concern of a empyema. Based on that I talked interventional radiology and were able to drain the loculated pleural fluid on the right. The fluid was nonpurulent. The white cell count within the fluid was nonelevated and the cultures still pending for now. The procedure was not the bedside successfully a total of 600 mL of fluid was aspirated from the right lung. At this point in time the right-sided chest tube is connected to Pleur-evac and is not draining actively. The chest x-ray however shows marked improvement in the pneumonia and in the loculated pleural fluid that was seen on the right. ET tube is sitting high in the trachea. The patient is an assist -control mode at the rate of 24, tidal volume of 500, FiO2 of 50% and a PEEP of 8. Morning blood gases showed a pH of 7.41 with a pCO2 of 38 and pO2 of 152 and there has been marked improvement in his oxygenation. The only positive cultures from his pericardial fluid which is strep pneumo and the patient on high-dose Rocephin. Vancomycin was discontinued by infectious disease as the strep pneumo has been sensitive. He was dynamically stable. Tolerating his tube feeds. Was given a sedation holiday this morning and he was able to wake up and follow commands appropriately. The pericardial tube is not draining at this point. On 05/30/2017 I'm seeing this patient in follow-up. The patient is doing well. I reviewed the chest x-ray and there is some residual infiltration of however they x-ray findings have essentially improved and the patient is improving in terms of his pneumonia. The right-sided pleural effusion was also drained percutaneously with a smaller chest tube by interventional radiology. The fluid cultures of been all negative. The blood culture been negative. The pericardial effusion was positive for Streptococcus pneumonia. The patient is on IV Rocephin 2 g every 24 hours. The patient has a pericardial catheter in place and yesterday the drainage was only 20-30 mL, none for today. This morning, the patient was taken off sedation. He woke up appropriately. Unable to complete the. He has breathing trial as the patient was becoming more and more agitated and anxious and his blood pressure was fluctuating and he was becoming tachypneic. At that point I noted the patient had adequate strength an adequate gag and cough reflex. He is at which her breathing index was also reasonable. At that point I decide to extubate this patient without giving him is participating trial. He extubated successfully and currently is on 5 L oxygen by nasal cannula. This was subsequently weaned down to 3 L. Hemodynamically stable. No chest pain. No other significant issues overnight. The patient is somewhat lethargic over he is still recovering from his underlying sedation. No tremors. No agitation. No signs of delirium tremens at this point. On 05/31/2017 I'm seeing this patient in follow-up. As mentioned earlier, the patient was extubated yesterday without any major difficulties. At the later stage the patient started having symptoms of delirium. He was on and off confused throughout the night and he sees a total of 6 mg of IV Ativan for delirium tremens. This morning, he is not oriented to time and place. His multiple of her extremities. No headache. The antibiotics are still unchanged and the patient is on high dose Rocephin regarding pneumococcal pneumonia and acute pneumococcal pericarditis. The pericardial catheter has drained 80 mL yesterday and there is no active drainage from the right-sided chest tube. Chest x-ray still showing breath and pulmonary infiltrates although improved compared to the initial chest x-ray from May 28. The patient is resting comfortably in bed. No signs of respiratory distress. Active issues for now remains his altered mentation and the delirium tremens. Hemodynamically stable. On 06/01/2017 the patient remains extubated. The patient remains in the intensive care unit. Mentation is still impaired and the patient is still delirious and he is not fully recovered from his delirium tremens. He is not agitated at this point. He had received a total of 8 mg of Ativan since yesterday evening. He is breathing comfortably in bed. There pericardial tube has drained 80 mL today and I reviewed the CAT scan of the chest that showed a loculated right-sided pleural effusion measuring 9.5 x 4.6 x 6.4 cm in size and this is obviously smaller compared to the previous measurement. Additional smaller loculation was also seen. Tiny free flowing effusion is also present bilaterally. Several lymph nodes within the mediastinum largest being 13 mm in size and there is not a 14 mm right paratracheal lymph node also. The patient made on IV Rocephin however today he has developed a maculopapular rash over the anterior chest and back area which could be potentially an ALLERGIC reaction. Cephalosporin ALLERGY needs to be considered. Hemodynamically stable. Producing adequate amount of urine output. He is not eating much over his swallowing is medication. White cell count is at 12.3. The rest of the electrodes are within normal limits. No new cultures are available at this point. On 06/02/2017 the patient remains extubated. The patient is still confused although he seems to be much less agitated and not requiring as much Ativan. He received only 2 mg of Ativan yesterday. Much more responsive today. Not diaphoretic and resting comfortably in bed. Oxygen has been taken off and his pulse ox on room air is 95%. Note that ultimately placed was applied to these chest tube yesterday and there was a drainage of 300 mL of pleural fluid post unclamping of the chest tube. The pericardial catheter has been removed. The patient is on IV Rocephin. His rash has subsided. He is on IV Solu-Medrol. Hemodynamically stable. White cell count remains low. He remains afebrile. He is not eating as much over he can swallow his pills. He went into a episode of atrial fibrillation yesterday and he quite Cardizem bolus and drip and currently is back to normal sinus rhythm and he is on Toprol 25 mg by mouth 3 times a day. Physical therapy will be involved in his case today. On 06/03/2017, the activation remains ongoing delirium tremens. Based on his increased agitation and restlessness overnight the patient was given a total of 8 mg of Ativan. This morning he was more so sleepy. His neurologic exam was nonfocal. A CAT scan of the brain was done that showed no acute abnormalities. As mentioned earlier, he received 2 alteplase treatment to his right lung so the small bore chest tube and the patient had approximately 300 mL of drainage following each application. This morning, I repeated a CAT scan of the chest and patient is found to have loculated pleural collection which has increased in size despite the pigtail catheter and there is also other loculated pleural fluid collection in the right lung with some increasing right lower lobe atelectasis. He remains afebrile. He is on IV Rocephin. Hemodynamically stable. No nausea. No vomiting. No abdominal pain. Oral intake remains low. He is able to swallow his pills. We'll discuss his findings with cardiothoracic surgery. It's reasonable to continue the out of place treatment for now in view of the worsening in loculation along the right chest. On 06/04/2017 the patient is able to sit up on a chair. Profoundly weak yet more interactive and less confused compared to yesterday. As mentioned earlier the CAT scan of the brain came back negative. Neurologic exam remains nonfocal. Another TPA treatment was given to this patient locally through his chest tube and this helped with the increased drainage and the patient put out more than 1000 MLS of pleural fluid following the administration of TPA. The patient is not having any respiratory distress at this point. The chest x-ray shows improvement in the volume status and much improvement in the right lower lobe opacity. Not having any chest pain. No fever. He is on IV Rocephin. CT surgeries on the case. Pericardial tube has been removed earlier as mentioned. The patient is seen again today 06/05/2017 in follow-up on the selective care unit. He is a little more awake and alert. Still somewhat disoriented to place and time. Apparently the chest tube was accidentally removed and the patient was trying to get out of bed. Today's chest x-ray does show some bibasilar atelectasis with continued improvement in the right-sided effusion. Echocardiogram gram today revealed a small generalized pericardial effusion. Ejection fraction 55-60%. He has been hemodynamically stable. Maintaining good O2 saturations in the 90s on room air. Afebrile. White count 12.1. Hemoglobin 12.3. He remains on ceftriaxone. Objective - Vital Signs Vital signs: Vital Signs Temp 97.2 F L 06/05/17 08:00 Pulse 88 06/05/17 12:57 Resp 16 06/05/17 08:00 BP 133/74 06/05/17 08:00 Pulse Ox 92 L 06/05/17 08:00 Intake & Output 06/04/17 06/05/17 06/05/17 18:59 06:59 18:59 Intake Total 1870 420 Output Total 540 500 Balance 1330 -500 420 Weight 94 kg 98.5 kg Intake: IV 260 Esomeprazole 20 mg In 50 Sodium Chloride 0.9% 50 ml @ 100 mls/hr IVPB DAILY DIANA Rx#:[id number] NS 110 cefTRIAXone 2,000 mg In 100 Sodium Chloride 0.9% 100 ml @ 100 mls/hr IVPB Q24HR DIANA Rx#:[id number] Oral 1610 420 Output: Chest Tube Drainage 20 0 Chest Tube Right 20 0 Posterior Chest Urine 520 500 Other: Voiding Method Urinal # Voids 1 1 # Bowel Movements 1 1 ABP, PAP, CO, CI - Last Documented Arterial Blood Pressure 136/66 - Exam Head exam was generally normal. There was no scleral icterus or corneal arcus. Mucous membranes were moist..Neck was supple and without jugular venous distension, thyromegaly, or carotid bruits. Carotids were easily palpable bilaterally. There was no adenopathy. Orogastric and oral tracheal tube are both in place.Head exam was generally normal. There was no scleral icterus or corneal arcus. Mucous membranes were moist. Lungs sounds are diminished bilaterally. Breath sounds are equal and symmetrical however. No wheezes. The right-sided chest tube is still in place. This is connected to a Pleur- evac. Heart sounds are regular, positive S1-S2 and there is a friction rub can be appreciated over the anterior chest wall. The abdomen was soft, non-tender, and without masses, organomegaly, or appreciable enlargement of the abdominal aorta.Examination of the extremities revealed easily palpable radial, femoral and pedal pulses. There was no cyanosis, clubbing or edema. Neurologically , the patient is moving all 4 extremities. Periodic confusion is still seen. - Labs CBC & Chem 7: 06/05/17 07:06 06/05/17 07:06 Labs: Abnormal Lab Results - Last 24 Hours (Table) 06/04/17 06/04/17 06/05/17 Range/Units 16:53 21:10 03:54 WBC (3.8-10.6) k/uL RBC (4.30-5.90) m/uL Hgb (13.0-17.5) gm/dL Hct (39.0-53.0) % Neutrophils # (1.3-7.7) k/uL Lymphocytes # (1.0-4.8) k/uL Sodium (137-145) mmol/L Chloride (98-107) mmol/L Creatinine (0.66-1.25) mg/dL Glucose (74-99) mg/dL POC Glucose (mg/dL) 129 H 161 H 133 H (75-99) mg/dL Calcium (8.4-10.2) mg/dL 06/05/17 06/05/17 06/05/17 Range/Units 06:23 07:06 07:06 WBC 12.1 H (3.8-10.6) k/uL RBC 4.01 L (4.30-5.90) m/uL Hgb 12.3 L (13.0-17.5) gm/dL Hct 38.1 L (39.0-53.0) % Neutrophils # 10.7 H (1.3-7.7) k/uL Lymphocytes # 0.9 L (1.0-4.8) k/uL Sodium 136 L (137-145) mmol/L Chloride 108 H (98-107) mmol/L Creatinine 0.54 L (0.66-1.25) mg/dL Glucose 102 H (74-99) mg/dL POC Glucose (mg/dL) 112 H (75-99) mg/dL Calcium 7.9 L (8.4-10.2) mg/dL 07/26/17 Range/Units 11:52 WBC (3.8-10.6) k/uL RBC (4.30-5.90) m/uL Hgb (13.0-17.5) gm/dL Hct (39.0-53.0) % Neutrophils # (1.3-7.7) k/uL Lymphocytes # (1.0-4.8) k/uL Sodium (137-145) mmol/L Chloride (98-107) mmol/L Creatinine (0.66-1.25) mg/dL Glucose (74-99) mg/dL POC Glucose (mg/dL) 153 H (75-99) mg/dL Calcium (8.4-10.2) mg/dL Microbiology - Last 24 Hours (Table) 05/27/17 11:50 Acid Fast Bacilli Smear - Final Bronchial Washings - Random Acid Fast Bacilli Culture - Preliminary 05/25/17 18:20 Acid Fast Bacilli Smear - Final Pericardial Fluid Acid Fast Bacilli Culture - Preliminary Assessment and Plan Plan: Assessment 1 acute hypoxic respiratory failure with development of diffuse breath and pulmonary infiltrates. CAT scan of the chest was reviewed and the findings are consistent with diffuse bilateral pneumonia with loculated right-sided pleural effusion with possibly empyema versus a complicated loculated parapneumonic fluids. A small bore chest tube was inserted to the right hemithorax and total of 600 mL the pleural fluid was aspirated. The cultures been negative at this point. While, there has been significant improvement in the pulmonary infiltration and oxygenation on today's evaluation. The patient remains intubated on a mechanical ventilator. On 05/30/2017, the patient was taken off sedation and he demonstrated adequate ability to maintain his airways patent and he had adequate neurologic function with the patient woke up and he was following commands moving all 4 extremities without any limitation. At that point the decision was to extubate this patient and this was a successful extubation. Currently is on 3 L of oxygen by nasal cannula. On 05/31/2017, the patient remains extubated. A repeat CAT scan of the chest will be obtained to follow-up on the loculated pleural effusion and decided the patient may benefit from an intrapleural TPA. We'll keep the pericardial catheter in place as long as there is still on and off drainage as the patient has drained approximately 80 mL yesterday. The patient is extubated. The patient on IV Rocephin. On 06/01/2017, the CAT scan of the chest was reviewed and the smaller chest tube is still in a good location however it is not draining a lot. Based on this, alteplase will be infused to enhance further drainage from the loculated right-sided pleural effusion. On 06/02/2017 chest x-ray findings are essentially stable. Nevertheless, there has been improved drainage from his right lung and I would consider repeating the alteplase today to improve the drainage and hopefully evacuate that the loculated right-sided pleural effusion. As such the alteplase will be repeated today and we'll monitor the output and repeat chest x-ray in the morning. On 06/03/2017, the patient shows increased loculation and atelectasis of the right lung and the patient has already received 2 alteplase treatment with subsequent worsening. He is an IV Rocephin. No signs of sepsis. Not in acute respiratory distress at this point. On 06/04/2017, the patient is post third TPA treatment which further improve the drainage from the right lung and the patient is feeling well and the chest x -ray shows improvement in the right lower lobe opacity/effusion. We'll continue monitoring the output from the chest tube as long as there is ongoing drainage. On 06/05/2017, the patient inadvertently pulled out his chest tube while trying to climb out of bed last evening. Today's chest x-ray shows continued improvement in the right lower lobe effusion. No plans for reinsertion. 2 acute STEMI status post emergent cardiac catheterization and stenting of the LAD 3 acute infectious pneumococcal pericarditis, with a pericardial effusion/ infected pericardial fluid with cultures growing strep pneumo, status post percutaneous drainage of the pericardial effusion at the bedside and the patient has a triple lumen catheter placed within the pericardium. The output from the pericardial tube is minimal at this point, and the tube was pulled out yesterday by CT surgery. Echocardiogram today 06/05/2017 reveals small pericardial effusion. 4 alcoholism 5 delirium tremens , active 6 Maculopapular rash, resolved with Solu-Medrol 7 paroxysmal atrial fibrillation, current rhythm is sinus on beta blockers Plan: The patient was seen and evaluated by Dr. Angel. His chest x-ray and labs were reviewed. We'll continue with his current medications but will stop his IV Solu-Medrol. His rash has resolved. A sitter remains at the bedside. We' ll continue to follow.
--- NOTE | 2017-06-05 15:05 | P.PN ---
Subjective This patient was admitted with evidence of pericarditis ischemic syndrome. Patient had a stent placement. Subsequently, patient had a pericardial tube placement for drainage of the pericardial effusion. Patient also developed pneumonia and delirium tremens related to alcohol withdrawal. Patient quite confused, is aware of the year and the month. Lying down in bed, sitter at bedside. Patient is walking with help. Hemodynamically stable. No recurrence of atrial fibrillation. Repeat echocardiogram with Doppler study revealed a small pericardial effusion. Overall, patient seemed to be relatively stable. Objective - Vital Signs Vital signs: Vital Signs Temp 97.2 F L 06/05/17 08:00 Pulse 88 06/05/17 12:57 Resp 16 06/05/17 08:00 BP 133/74 06/05/17 08:00 Pulse Ox 92 L 06/05/17 08:00 Intake & Output 06/04/17 06/05/17 06/05/17 18:59 06:59 18:59 Intake Total 1870 420 Output Total 540 500 Balance 1330 -500 420 Weight 94 kg 98.5 kg Intake: IV 260 Esomeprazole 20 mg In 50 Sodium Chloride 0.9% 50 ml @ 100 mls/hr IVPB DAILY DIANA Rx#:[id number] NS 110 cefTRIAXone 2,000 mg In 100 Sodium Chloride 0.9% 100 ml @ 100 mls/hr IVPB Q24HR DIANA Rx#:[id number] Oral 1610 420 Output: Chest Tube Drainage 20 0 Chest Tube Right 20 0 Posterior Chest Urine 520 500 Other: Voiding Method Urinal # Voids 1 1 # Bowel Movements 1 1 ABP, PAP, CO, CI - Last Documented Arterial Blood Pressure 136/66 - Exam GENERAL EXAM: Patient is sleepy and sluggish but arousable HEENT: Normocephalic. Normal reaction of pupils, equal size, normal range of extraocular motion. No erythema or exudates in the throat. NECK: No masses, no nuchal rigidity. CHEST: No chest wall deformity. LUNGS: Equal air entry with no crackles or wheeze. HEART: S1 and S2 normal with no audible mumurs or gallops. Regular rhythm, femorals equal on both sides.. ABDOMEN: No hepatosplenomegaly, normal bowel sounds, no guarding or rigidity. SKIN: No rashes CENTRAL NERVOUS SYSTEM: Deferred EXTREMITIES: No cyanosis, clubbing or edema. - Labs CBC & Chem 7: 06/05/17 07:06 06/05/17 07:06 Labs: Abnormal Lab Results - Last 24 Hours (Table) 06/04/17 06/04/17 06/05/17 Range/Units 16:53 21:10 03:54 WBC (3.8-10.6) k/uL RBC (4.30-5.90) m/uL Hgb (13.0-17.5) gm/dL Hct (39.0-53.0) % Neutrophils # (1.3-7.7) k/uL Lymphocytes # (1.0-4.8) k/uL Sodium (137-145) mmol/L Chloride (98-107) mmol/L Creatinine (0.66-1.25) mg/dL Glucose (74-99) mg/dL POC Glucose (mg/dL) 129 H 161 H 133 H (75-99) mg/dL Calcium (8.4-10.2) mg/dL 06/05/17 06/05/17 06/05/17 Range/Units 06:23 07:06 07:06 WBC 12.1 H (3.8-10.6) k/uL RBC 4.01 L (4.30-5.90) m/uL Hgb 12.3 L (13.0-17.5) gm/dL Hct 38.1 L (39.0-53.0) % Neutrophils # 10.7 H (1.3-7.7) k/uL Lymphocytes # 0.9 L (1.0-4.8) k/uL Sodium 136 L (137-145) mmol/L Chloride 108 H (98-107) mmol/L Creatinine 0.54 L (0.66-1.25) mg/dL Glucose 102 H (74-99) mg/dL POC Glucose (mg/dL) 112 H (75-99) mg/dL Calcium 7.9 L (8.4-10.2) mg/dL 06/05/17 Range/Units 11:52 WBC (3.8-10.6) k/uL RBC (4.30-5.90) m/uL Hgb (13.0-17.5) gm/dL Hct (39.0-53.0) % Neutrophils # (1.3-7.7) k/uL Lymphocytes # (1.0-4.8) k/uL Sodium (137-145) mmol/L Chloride (98-107) mmol/L Creatinine (0.66-1.25) mg/dL Glucose (74-99) mg/dL POC Glucose (mg/dL) 153 H (75-99) mg/dL Calcium (8.4-10.2) mg/dL Microbiology - Last 24 Hours (Table) 05/27/17 11:50 Acid Fast Bacilli Smear - Final Bronchial Washings - Random Acid Fast Bacilli Culture - Preliminary 05/25/17 18:20 Acid Fast Bacilli Smear - Final Pericardial Fluid Acid Fast Bacilli Culture - Preliminary Assessment and Plan (1) Pericarditis Status: Acute (2) Alcoholism Status: Acute (3) COPD (chronic obstructive pulmonary disease) Status: Acute (4) Nicotine dependence Status: Acute (5) Paroxysmal atrial fibrillation Status: Acute (6) Pericardial effusion Status: Acute Plan: From cardiology's perspective, we'll continue patient on his current medications. DNP note has been reviewed, I agree with a documented findings and plan of care. Patient was seen and examined.
--- NOTE | 2017-06-05 16:22 | P.PN ---
Subjective Mr. Araujo is a 52-year-old male with a past medical history of chronic low back pain, hypertension, alcohol abuse and nicotine dependence coming into the hospital with a chief complaint of chest pain. Patient has history of chronic low back pain and pain of his neck that has been going on but for the past 5 days his symptoms have worsened. Patient's chest pain got worse and he was complaining of 10 out of 10 and so called the EMS. The paramedics did perform an EKG which was suspicious for ST elevation MO. He was given aspirin and nitroglycerin and transferred to [facility] for further evaluation. So the website optimization strategist delivery agent Dr. GRICELDA Gonzales was informed, who did an emergent cardiac catheterization. The patient had a stent placed in his LAD and was also noted to have a large pericardial effusion. So CT surgeon Dr. Multani came in and did a pericardiocentesis. There was 380 mL of fluid drained out. And the patient has been transferred to the ICU for further management and care. On 05/26/17- on the night of 05/26 the patient became very combative and was trying to put all his lines and the pericardial catheter. The patient was placed on a CIWA scale and given 10 mg of Ativan without much improvement in his symptoms. So eventually he was given Haldol after which the patient did calm down. Around 230 ml of fluid was drained from the pericardium. On 05/27/17 - patient was pretty confused, agitated and was on restraints , he was placed on BiPAP and as he was desaturating. Dr. Angel had to intubate the patient around 10 AM today due to impending respiratory failure due to ARDS. Patient also had a bronchoscopy done by Dr. Angel this morning. Patient's pericardial fluid came back to be positive for Streptococcus and he has been started on ceftriaxone. On 05/28/2017- patient still remains intubated. He is on a Levophed drip. Sedated on propofol. Patient had thoracentesisdone today and 400 mL of fluid was drained. And the chest tube was placed. 05/29/2017 Patient failed a weaning trial this morning. With sedation holiday patient is able to move all his 4 extremities and follows simple commands. Cultures from bronchial washings showed no growth for the past 24 hours. On 05/30/17 - pt has been extubated successfully and is saturating above 90 % on 3 lt of nasal canula. on 05/31/17 Pt. is confused but able to answer slowly. resp status improved. still on chest tube and pericardial drain tube. 06/01/17 pt is confused able to answer questions no overnight events reported tries to get out of bed ROS_ deferred due to pt's confusion 06/02/2017 Patient is confused however is able to answer some questions appropriately Denies having any additional problems Overnight the patient had changed into atrial fibrillation is currently maintained on a Cardizem drip 06/03/17 confused no overnight events TPA is infused due to complicated effusion, loculated 06/04/17 still confused however improving no overnight events reported 06/05/17 pt pulled his chest tube no other overnight events - Exam GEN. APPEARANCE: no acute distress. Extubted HEAD EXAM: Atraumatic EYE EXAM: No pallor no icterus ENT EXAM: ET tube in place NECK EXAM: No carotid bruit. No thyromegaly RESPIRATORY EXAM: Diminished breath sounds bilaterally. Coarse breath sounds in all lung [place] with crackles. Right chest tube in place. CARDIOVASCULAR EXAM: regular S1 and S2 heard. GI/ABDOMINAL EXAM: Soft nontender. No guarding or rigidity. EXTREMITIES EXAM: No cyanosis, no swelling, no edema. NEUROLOGICAL EXAM: confused SKIN EXAM: warm to touch. No rash. Assessment and Plan Plan: ASSESSMENT Septic shock Streptococcal pericarditis Acute hypoxic respiratory failure secondary to ARDS Pneumonia right upper lobe ST elevation MO status post stenting of LAD Pericardial effusion Alcohol withdrawal delirium tremens Chronic liver disease Chronic alcohol abuse Chronic nicotine dependence New-onset atrial fibrillation with rapid ventricular rate PLAN NSR Seroquel bedtime continue with full ICU support delirium is still noted repeat cxr jae sitter ABX with rocephin DVT prophylaxis Objective - Vital Signs Vital signs: Vital Signs Temp 97.2 F L 06/05/17 08:00 Pulse 85 06/05/17 15:53 Resp 14 06/05/17 15:53 BP 133/74 06/05/17 08:00 Pulse Ox 92 L 06/05/17 08:00 Intake & Output 06/04/17 06/05/17 06/05/17 18:59 06:59 18:59 Intake Total 1870 420 Output Total 540 500 Balance 1330 -500 420 Weight 94 kg 98.5 kg Intake: IV 260 Esomeprazole 20 mg In 50 Sodium Chloride 0.9% 50 ml @ 100 mls/hr IVPB DAILY DIANA Rx#:[id number] NS 110 cefTRIAXone 2,000 mg In 100 Sodium Chloride 0.9% 100 ml @ 100 mls/hr IVPB Q24HR DIANA Rx#:[id number] Oral 1610 420 Output: Chest Tube Drainage 20 0 Chest Tube Right 20 0 Posterior Chest Urine 520 500 Other: Voiding Method Urinal # Voids 1 1 # Bowel Movements 1 1 ABP, PAP, CO, CI - Last Documented Arterial Blood Pressure 136/66 - Labs CBC & Chem 7: 06/05/17 07:06 06/05/17 07:06 Labs: Abnormal Lab Results - Last 24 Hours (Table) 06/04/17 06/04/17 06/05/17 Range/Units 16:53 21:10 03:54 WBC (3.8-10.6) k/uL RBC (4.30-5.90) m/uL Hgb (13.0-17.5) gm/dL Hct (39.0-53.0) % Neutrophils # (1.3-7.7) k/uL Lymphocytes # (1.0-4.8) k/uL Sodium (137-145) mmol/L Chloride (98-107) mmol/L Creatinine (0.66-1.25) mg/dL Glucose (74-99) mg/dL POC Glucose (mg/dL) 129 H 161 H 133 H (75-99) mg/dL Calcium (8.4-10.2) mg/dL 06/05/17 06/05/17 06/05/17 Range/Units 06:23 07:06 07:06 WBC 12.1 H (3.8-10.6) k/uL RBC 4.01 L (4.30-5.90) m/uL Hgb 12.3 L (13.0-17.5) gm/dL Hct 38.1 L (39.0-53.0) % Neutrophils # 10.7 H (1.3-7.7) k/uL Lymphocytes # 0.9 L (1.0-4.8) k/uL Sodium 136 L (137-145) mmol/L Chloride 108 H (98-107) mmol/L Creatinine 0.54 L (0.66-1.25) mg/dL Glucose 102 H (74-99) mg/dL POC Glucose (mg/dL) 112 H (75-99) mg/dL Calcium 7.9 L (8.4-10.2) mg/dL 06/05/17 Range/Units 11:52 WBC (3.8-10.6) k/uL RBC (4.30-5.90) m/uL Hgb (13.0-17.5) gm/dL Hct (39.0-53.0) % Neutrophils # (1.3-7.7) k/uL Lymphocytes # (1.0-4.8) k/uL Sodium (137-145) mmol/L Chloride (98-107) mmol/L Creatinine (0.66-1.25) mg/dL Glucose (74-99) mg/dL POC Glucose (mg/dL) 153 H (75-99) mg/dL Calcium (8.4-10.2) mg/dL Microbiology - Last 24 Hours (Table) 05/27/17 11:50 Acid Fast Bacilli Smear - Final Bronchial Washings - Random Acid Fast Bacilli Culture - Preliminary 05/25/17 18:20 Acid Fast Bacilli Smear - Final Pericardial Fluid Acid Fast Bacilli Culture - Preliminary
[2017-06-05 17:16] LABS: Glucose,Whole Blood 136 mg/dL (75-99)
--- NOTE | 2017-06-05 20:38 | P.PN ---
Subjective Principal diagnosis: Purulent pericarditis This is a 52-year-old male who presented to emergency center on May 25 due to chest pain that had been going on for 5 days and worsening. Patient was found to have ST elevation and was taken to the cardiac catheterization technician with Dr. GRICELDA Gonzales and found to have a 60-70% lesion in the LAD and was subsequently stented. Patient also was found to have a large pericardial effusion and was started on Zosyn and Levaquin and admitted to the intensive care unit. He underwent a bedside echo guided pericardiocentesis and insertion of a pericardial drain done on May 25 with removal of 380 ML's of cloudy tannish fluid. Yesterday he had 225 mL removed in today 125 mL. Chest x -ray showed cardiomegaly, right upper lobe consolidation and bibasilar at infiltrate or atelectasis. He is also followed by Dr. Angel from pulmonary medicine and patient was on BiPAP this morning pulseox was 80% with agitation and confusion and ended up being intubated today. He has presented with a temperature of 101.1, white count of 29.7, sodium 123, blood sugar 314, lactic acid 2.7. Urinalysis was cloudy, protein 1+, blood moderate, leukocyte esterase trace, wbc's 15, clumps rare bacteria rare. Urine culture is in progress and blood cultures status received. Pericardial fluid alphahemolytic strep. Patient has history of drinking 18 beers per day and is on the CIWA protocol. Bronchoscopy was performed. Patient does have a chest tube now in place with decreasing amounts of drainage. Little drainage from the pericardial drain patient has tolerated extubation well, confusion is improved no active hallucinations. Out of ICU still with sitter. Objective - Vital Signs Vital signs: Vital Signs Temp 96.8 F L 06/05/17 16:00 Pulse 80 06/05/17 20:06 Resp 14 06/05/17 20:06 BP 162/80 06/05/17 16:00 Pulse Ox 96 06/05/17 19:52 Intake & Output 06/05/17 06/05/17 06/06/17 06:59 18:59 06:59 Intake Total 420 Output Total 500 Balance -500 420 Weight 98.5 kg Intake: Oral 420 Output: Chest Tube Drainage 0 Chest Tube Right 0 Posterior Chest Urine 500 Other: # Voids 1 1 # Bowel Movements 1 1 ABP, PAP, CO, CI - Last Documented Arterial Blood Pressure 136/66 - Exam Gen: This is a 52-year-old male. Patient is now extubated but is not a good historian HEENT: Head is atraumatic, normocephalic. Sclerae is anicteric. Dentition is in poor order NECK: Supple. No JVD. No lymphadenopathy. No thyromegaly. LUNGS: Diminished bilaterally with scattered crackles. Decreased breath sounds especially to the right base, chest tube removed with improved aeration right base. HEART: Regular rate and rhythm. No murmur. pericardial tube removed. minimal crunch at times ABDOMEN: Soft. Bowel sounds are present. No masses. No tenderness. EXTREMITIES: No pedal edema. No calf swelling NEUROLOGICAL: The patientremains a poor historian. But did move upper and lower extremities.no hallucinations Skin is without rash or visualized breakdown - Labs CBC & Chem 7: 06/05/17 07:06 06/05/17 07:06 Labs: Abnormal Lab Results - Last 24 Hours (Table) 06/04/17 06/05/17 06/05/17 Range/Units 21:10 03:54 06:23 WBC (3.8-10.6) k/uL RBC (4.30-5.90) m/uL Hgb (13.0-17.5) gm/dL Hct (39.0-53.0) % Neutrophils # (1.3-7.7) k/uL Lymphocytes # (1.0-4.8) k/uL Sodium (137-145) mmol/L Chloride (98-107) mmol/L Creatinine (0.66-1.25) mg/dL Glucose (74-99) mg/dL POC Glucose (mg/dL) 161 H 133 H 112 H (75-99) mg/dL Calcium (8.4-10.2) mg/dL 06/05/17 06/05/17 06/05/17 Range/Units 07:06 07:06 11:52 WBC 12.1 H (3.8-10.6) k/uL RBC 4.01 L (4.30-5.90) m/uL Hgb 12.3 L (13.0-17.5) gm/dL Hct 38.1 L (39.0-53.0) % Neutrophils # 10.7 H (1.3-7.7) k/uL Lymphocytes # 0.9 L (1.0-4.8) k/uL Sodium 136 L (137-145) mmol/L Chloride 108 H (98-107) mmol/L Creatinine 0.54 L (0.66-1.25) mg/dL Glucose 102 H (74-99) mg/dL POC Glucose (mg/dL) 153 H (75-99) mg/dL Calcium 7.9 L (8.4-10.2) mg/dL 06/05/17 Range/Units 17:14 WBC (3.8-10.6) k/uL RBC (4.30-5.90) m/uL Hgb (13.0-17.5) gm/dL Hct (39.0-53.0) % Neutrophils # (1.3-7.7) k/uL Lymphocytes # (1.0-4.8) k/uL Sodium (137-145) mmol/L Chloride (98-107) mmol/L Creatinine (0.66-1.25) mg/dL Glucose (74-99) mg/dL POC Glucose (mg/dL) 136 H (75-99) mg/dL Calcium (8.4-10.2) mg/dL Microbiology - Last 24 Hours (Table) 05/27/17 11:50 Acid Fast Bacilli Smear - Final Bronchial Washings - Random Acid Fast Bacilli Culture - Preliminary 05/25/17 18:20 Acid Fast Bacilli Smear - Final Pericardial Fluid Acid Fast Bacilli Culture - Preliminary Laboratory Results WBC 12.1 k/uL (3.8-10.6) H 06/05/17 07:06 RBC 4.01 m/uL (4.30-5.90) L 06/05/17 07:06 Hgb 12.3 gm/dL (13.0-17.5) L 06/05/17 07:06 Hct 38.1 % (39.0-53.0) L 06/05/17 07:06 MCV 94.9 fL (80.0-100.0) 06/05/17 07:06 MCH 30.6 pg (25.0-35.0) 06/05/17 07:06 MCHC 32.2 g/dL (31.0-37.0) 06/05/17 07:06 RDW 12.6 % (11.5-15.5) 06/05/17 07:06 Plt Count 402 k/uL (150-450) 06/05/17 07:06 Neutrophils % 88 % 06/05/17 07:06 Neutrophils % (Manual) 54.5 % 05/26/17 05:35 Band Neutrophils % 39.0 % 05/26/17 05:35 Lymphocytes % 7 % 06/05/17 07:06 Lymphocytes % (Manual) 4.5 % 05/26/17 05:35 Monocytes % 4 % 06/05/17 07:06 Monocytes % (Manual) 1.5 % 05/26/17 05:35 Eosinophils % 0 % 06/05/17 07:06 Basophils % 0 % 06/05/17 07:06 Metamyelocytes % 0.5 % 05/26/17 05:35 Neutrophils # 10.7 k/uL (1.3-7.7) H 06/05/17 07:06 Neutrophils # (Manual) 20.4 k/uL (1.3-7.7) H 05/26/17 05:35 Lymphocytes # 0.9 k/uL (1.0-4.8) L 06/05/17 07:06 Lymphocytes # (Manual) 1.0 k/uL (1.0-4.8) 05/26/17 05:35 Monocytes # 0.5 k/uL (0-1.0) 06/05/17 07:06 Monocytes # (Manual) 0.3 k/uL (0-1.0) 05/26/17 05:35 Eosinophils # 0.0 k/uL (0-0.7) 06/05/17 07:06 Basophils # 0.0 k/uL (0-0.2) 06/05/17 07:06 Nucleated RBCs 0 /100 WBC (0-0) 05/26/17 05:35 Manual Slide Review Performed 05/25/17 15:00 Toxic Granulation Present 05/26/17 05:35 RBC Morphology Normal 05/25/17 15:00 Polychromasia Present 05/26/17 05:35 Poikilocytosis (manual Present 05/26/17 05:35 Anisocytosis (manual) Present 05/26/17 05:35 PT 12.1 sec (9.0-12.0) H 05/28/17 10:45 INR 1.2 (<1.2) H 05/28/17 10:45 APTT 25.9 sec (22.0-30.0) 05/25/17 15:00 D-Dimer 1.32 mg/L FEU (<0.60) H 05/25/17 15:00 Sample Site charlene 05/30/17 05:16 ABG pH 7.49 (7.35-7.45) H 05/30/17 05:16 ABG pCO2 34 mmHg (35-45) L 05/30/17 05:16 ABG pO2 85 mmHg (83-108) 05/30/17 05:16 ABG HCO3 26 mmol/L (21-25) H 05/30/17 05:16 ABG Total CO2 27 mmol/L (19-24) H 05/30/17 05:16 ABG O2 Saturation 97.0 % (94-97) 05/30/17 05:16 ABG Base Excess 2.4 mmol/L 05/30/17 05:16 ABG Hematocrit 48 % (34.0-46.0) H 05/25/17 16:00 FiO2 40 % 05/30/17 05:16 Sodium 136 mmol/L (137-145) L 06/05/17 07:06 Potassium 4.0 mmol/L (3.5-5.1) 06/05/17 07:06 Chloride 108 mmol/L (98-107) H 06/05/17 07:06 Carbon Dioxide 24 mmol/L (22-30) 06/05/17 07:06 Anion Gap 4 mmol/L 06/05/17 07:06 BUN 19 mg/dL (9-20) 06/05/17 07:06 Creatinine 0.54 mg/dL (0.66-1.25) L 06/05/17 07:06 Est GFR (MDRD) Af Amer >60 (>60 ml/min/1.73 sqM) 06/05/17 07:06 Est GFR (MDRD) Non-Af >60 (>60 ml/min/1.73 sqM) 06/05/17 07:06 Glucose 102 mg/dL (74-99) H 06/05/17 07:06 POC Glucose (mg/dL) 136 mg/dL (75-99) H 06/05/17 17:14 POC Glu Pathology Laboratory Aide Jayson Pastrana 06/05/17 17:[address] Glu mg/dL 105 mg/dL 05/25/17 15:00 Hemoglobin A1c 5.3 % (4.2-6.1) 05/25/17 15:00 Lactic Ac Sepsis Rflx Y 05/26/17 06:08 Plasma Lactic Acid Rob 2.7 mmol/L (0.7-2.0) H* 05/26/17 09:47 Calcium 7.9 mg/dL (8.4-10.2) L 06/05/17 07:06 Phosphorus 2.9 mg/dL (2.5-4.5) 06/05/17 07:06 Magnesium 2.1 mg/dL (1.6-2.3) 06/05/17 07:06 Total Bilirubin 2.2 mg/dL (0.2-1.3) H 05/25/17 15:00 AST 117 U/L (17-59) H 05/25/17 15:00 ALT 72 U/L (21-72) 05/25/17 15:00 Alkaline Phosphatase 75 U/L (38-126) 05/25/17 15:00 Lactate Dehydrogenase 861 U/L (313-618) H 05/28/17 04:30 Total Creatine Kinase 29 U/L (55-170) L 05/25/17 15:00 CK-MB (CK-2) 0.6 ng/mL (0.0-2.4) 05/25/17 15:00 CK-MB (CK-2) Rel Index 2.1 05/25/17 15:00 Troponin I 0.030 ng/mL (0.000-0.034) 05/26/17 05:35 Total Protein 4.8 g/dL (6.3-8.2) L 05/28/17 04:30 Albumin 3.2 g/dL (3.5-5.0) L 05/25/17 15:00 Urine Color Yellow 05/26/17 05:00 Urine Appearance Cloudy (Clear) 05/26/17 05:00 Urine pH 5.5 (5.0-8.0) 05/26/17 05:00 Ur Specific Slaughter 1.030 (1.001-1.035) 05/26/17 05:00 Urine Protein 1+ (Negative) H 05/26/17 05:00 Urine Glucose (UA) Negative (Negative) 05/26/17 05:00 Urine Ketones Negative (Negative) 05/26/17 05:00 Urine Blood Moderate (Negative) H 05/26/17 05:00 Urine Nitrite Negative (Negative) 05/26/17 05:00 Urine Bilirubin Negative (Negative) 05/26/17 05:00 Urine Urobilinogen 2.0 mg/dL (<2.0) 05/26/17 05:00 Ur Leukocyte Esterase Trace (Negative) H 05/26/17 05:00 Urine RBC 10 /hpf (0-5) H 05/26/17 05:00 Urine WBC 15 /hpf (0-5) H 05/26/17 05:00 Urine WBC Clumps Rare /hpf (None) H 05/26/17 05:00 Ur Squamous Epith Cells 1 /hpf (0-4) 05/26/17 05:00 Amorphous Sediment Rare /hpf (None) H 05/26/17 05:00 Urine Bacteria Rare /hpf (None) H 05/26/17 05:00 Urine Mucus Rare /hpf (None) H 05/26/17 05:00 Fluid Source Pleural 05/28/17 12:55 Fluid Color Yellow 05/25/17 18:20 Fluid Appearance Hazy 05/28/17 12:55 Fluid RBC 440 /uL 05/28/17 12:55 Fluid Nucleated Cells 170 /uL 05/28/17 12:55 Fluid Polynuclear WBCs 83 % 05/28/17 12:55 Fluid Mononuclear WBCs 17 % 05/28/17 12:55 Body Fluid Glucose Source Not Reportable 05/28/17 12:55 Fluid Glucose <4 mg/dL 05/28/17 12:55 Body Fluid Protein Source Not Reportable 05/28/17 12:55 Fluid Total Protein 4300 mg/dL 05/28/17 12:55 Body Fluid LDH Source Not Reportable 05/28/17 12:55 Fluid LDH 3388 U/L 05/28/17 12:55 Fluid Comment 05/25/17 18:20 Vancomycin Trough 24.6 ug/mL 05/28/17 04:30 C. difficile (EIA) Intrp Negative (Negative) 05/31/17 04:20 Virus Source See Below 05/27/17 11:50 Viral Test See Below 05/27/17 11:50 Virus Analysis Interp See Below 05/27/17 11:50 Blood Type O Positive 05/25/17 15:00 Blood Type Recheck No 05/25/17 15:00 Antibody Screen NEGATIVE 05/25/17 15:00 Transfuse Plasma 05/25/2017 05/25/17 15:00 Spec Expiration Date 05/28/2017 - 229905/25/17 15:00 Microbiology 05/27/17 11:50 Bronchial Washings - Random Acid Fast Bacilli Smear - Final 05/27/17 11:50 Bronchial Washings - Random Acid Fast Bacilli Culture - Preliminary 05/25/17 18:20 Pericardial Fluid Acid Fast Bacilli Smear - Final 05/25/17 18:20 Pericardial Fluid Acid Fast Bacilli Culture - Preliminary 05/27/17 11:50 Bronchial Washings - Random Fungal Culture - Preliminary Rachel albicans 05/28/17 12:55 Pleural Fluid Anaerobic Culture - Final 05/26/17 09:47 Blood Blood Culture - Final No Growth after 144 hours 05/26/17 09:47 Blood Blood Culture - Final No Growth after 144 hours 05/28/17 12:55 Pleural Fluid Gram Stain - Final 05/28/17 12:55 Pleural Fluid Body Fluid Culture - Final 05/25/17 18:20 Pericardial Fluid Anaerobic Culture - Final 05/27/17 11:50 Bronchial Washings - Random Gram Stain - Final 05/27/17 11:50 Bronchial Washings - Random Bronchial Washings Culture - Final Rachel albicans 05/25/17 18:20 Pericardial Fluid Gram Stain - Final 05/25/17 18:20 Pericardial Fluid Body Fluid Culture - Final Streptococcus pneumoniae 05/26/17 05:00 Urine,Catheterized Urine Culture - Final Assessment and Plan (1) Alcoholism Status: Acute (2) Acute hypoxemic respiratory failure Status: Acute (3) Purulent pericarditis Narrative/Plan: 52-year-old gentleman who has a history of alcoholism who has radiological evidence of pneumonia. It is highly likely that the pneumonia resulted in the purulent pericarditis via direct extension. alpha streptococci have been isolated. It has been noted to be Streptococcus pneumoniae that is not drug- resistant. Antibiotic therapy with Rocephin and vancomycin is being utilized at this time pending further data. Blood cultures negative so far. As noted the patient's alcohol withdrawal is being treated, and his respiratory failure hopefully respond well to antibiotic therapy, treatment of the purulent pericarditis and underlying sepsis. The extensive leukocytosis is directly related to the purulent pericarditis and pneumonia, and with this current underlying status of alcoholism is a good prognostic sign and he was able to generate a leukocytosis. Chest tube is been placed in further cultures are pending. Blood cultures negative so far. Overall there is been improvement of his status. He is now extubated and doing well off of the ventilator. He is comfortable and neurologically not agitated. Pericardial drain removed. Chest tube with minimal drainage. Is showing improvement. As noted cultures have Streptococcus pneumoniae and doing well with current antibiotic therapy of Rocephin. Will need several weeks of intravenous antibiotic therapy. The significant leukocytosis is improved 12.1 today Status: Acute
[2017-06-05 21:21] LABS: Glucose,Whole Blood 100 mg/dL (75-99)
[2017-06-05] MEDS: QUEtiapine 50 MG TAB PO SCH (21:42)
[2017-06-05] MEDS: amLODIPine 5 MG TAB PO SCH (21:42)
[2017-06-06] MEDS: MORPHINE SULFATE 2 MG/ML SYRINGE IVP PRN ×2 (06:13→10:43)
[2017-06-06 06:33] LABS: Glucose,Whole Blood 136 mg/dL (75-99)
[2017-06-06] MEDS: INSULIN LISPRO (humaLOG) 300 UNIT/3 ML VIAL SQ SCH ×4 (06:49→21:52)
[2017-06-06] MEDS: PANTOPRAZOLE 40 MG TABLET PO SCH (06:56)
[2017-06-06 07:20] LABS: Basophils % (A) 0 %; CH 31.5; CHCM 32.9; Eosinophils # (A) 0.1 k/uL (0-0.7); Eosinophils % (A) 0 %; HCT 41.9 % (39.0-53.0); HDW 2.51; HGB 13.7 gm/dL (13.0-17.5); Luc # (Auto) 0.09; Luc % (Auto) 1; Lymphocytes # (A) 1.5 k/uL (1.0-4.8); Lymphocytes % (A) 9 %; MCH 31.4 pg (25.0-35.0); MCHC 32.7 g/dL (31.0-37.0); Mean Platelet Volume 7.9; Monocytes # (A) 0.5 k/uL (0-1.0); Monocytes % (A) 3 %; Neutrophils % (A) 88 %; RBC 4.36 m/uL (4.30-5.90); RDW 13.4 % (11.5-15.5); WBC 17.2 k/uL (3.8-10.6); WBC (Perox) 16.18
[2017-06-06 07:41] LABS: Anion Gap 6 mmol/L; Blood Urea Nitrogen 15 mg/dL (9-20); Carbon Dioxide 24 mmol/L (22-30); Chloride 106 mmol/L (98-107); Glucose 117 mg/dL (74-99); Magnesium 1.7 mg/dL (1.6-2.3); Non-African American GFR(MDRD) >60 (>60 ml/min/1.73 sqM); Phosphorous 2.9 mg/dL (2.5-4.5); Potassium 3.6 mmol/L (3.5-5.1); Sodium 136 mmol/L (137-145)
--- NOTE | 2017-06-06 07:50 | XR ---
EXAMINATION TYPE: XR chest 1V portable DATE OF EXAM: 06/06/2017 HISTORY: Shortness of breath. COMPARISON: 06/05/2017 TECHNIQUE: Single view of the chest is submitted. FINDINGS: Demonstrated are scattered senescent parenchymal change. Left-sided subclavian central venous line i s unchanged in position. There is no evidence for focal infiltrate. Continued mild cardiomegaly with pulmonary venous congestion and scattered areas of infiltrate. No si gnificant interval change is appreciated. Hilar and mediastinal structures are within normal limits. Degenerative changes are seen of the dorsal spine. IMPRESSION: 1. Continued mild cardiomegaly with pulmonary venous congestion and scattered areas of infiltrate. N o significant interval change is appreciated.
[2017-06-06] MEDS: IPRATROPIUM-ALBUTEROL 3 ML NEB INHALATION SCH ×4 (08:19→20:42)
[2017-06-06] MEDS: METOPROLOL TARTRATE 50 MG TAB PO SCH ×3 (08:33→20:30)
[2017-06-06] MEDS: ASPIRIN 81 MG CHEW PO SCH (08:33)
[2017-06-06] MEDS: CLOPIDOGREL 75 MG TAB PO SCH (08:33)
[2017-06-06] MEDS: cefTRIAXone 2,000 MG in SODIUM CHLORIDE 0.9% 100 ML IVPB SCH (08:34)
[2017-06-06] MEDS: ATORVASTATIN 40 MG TAB PO SCH (08:34)
[2017-06-06] MEDS: ENOXAPARIN 40 MG/0.4 ML SYRINGE SQ SCH (08:35)
[2017-06-06 11:28] LABS: Glucose,Whole Blood 115 mg/dL (75-99)
[2017-06-06] MEDS: FOLIC ACID 1 MG TAB PO SCH (12:34)
[2017-06-06] MEDS: THIAMINE 100 MG TAB PO SCH (12:34)
--- NOTE | 2017-06-06 12:36 | P.PN ---
Subjective 52-year-old gentleman, known history of alcoholism, presented to the hospital because of increased chest pain. He was found to have ST segment elevation myocardial infarction. The patient was taken to the [facility] on an emergent basis and he had stents placed into his LAD for a 70% LAD lesion. He was also found to have a large pericardial effusion and leukocytosis. He was seen by surgery and he underwent a bedside pericardiocentesis and total of 380 mL of fluid was drained from the pericardial space. Initial cultures are growing up hemolytic strep and the patient is or the being covered with a combination of Rocephin and vancomycin. Note that his initial chest x-ray on admission showed a right upper lobe consolidation and subsequent x-ray showed diffuse lateral pulmonary infiltrates typical of an underlying ARDS. The patient also went into delirium tremens. Overnight she had become quite a bit agitated and he had required a total of 8 mg of Ativan throughout the night. This morning, the patient is lethargic, and 2. restraints, confused and sometimes agitated. He is on a BiPAP at a pressure of 12/5 cm of water with an FiO2 of 100%. Earlier he was on a percent and he had to be brought up to 100% to maintain a saturation above 90%. He has good pulses in all 4 extremities. He is producing approximately 50 mL an hour. He is on normal saline at the rate of 75 mL an hour. White cell count remains elevated at 28.6. He is on no pressors for now. No significant electrode abnormalities. No acidosis. Echocardiogram that was done earlier showed a preserved LV function. The patient has a pericardial tube in place and total amount of output that was drained this morning is around 125, brownish to yellowish pericardial fluid. Note that the fluid analysis was done earlier showed elevated LDH and protein. White cell count is also elevated at 44,000 with 92% on a nuclear white cells. On 05/28/2017 the patient remains intubated on a mechanical ventilator. He is sedated with Diprivan and is calm and comfortable. Spiked a high rate of the prevent, the patient is still easily arousable. Hemodynamically stable on no pressors. He remains on a mechanical ventilator on assist control mode at the rate of 24, tidal volume 500, FiO2 of 50% and a PEEP of 8. The blood gases from this morning showed a pH of 7.42 with a pCO2 of 36 and pO2 of 69. I reviewed the chest x-ray from today that shows no interval change and there is diffuse breath and pulmonary infiltrates and ET tube is in a good location. The CAT scan of the chest that was done yesterday showed development of a loculated pleural effusion on the right more so a large pocket sitting in the posterior aspect of the right hemithorax which I think it's accessible for percutaneous drainage and for that reason I discussed this case with interventional radiology and will going to proceed with this procedure despite the fact that the patient on a combination of aspirin and Plavix. I think the benefits of this procedure will outweigh the risk. Meanwhile a bronchoscopy and the bronchioloalveolar lavage was done yesterday and the cultures are all negative thus far. The patient's pericardial effusion culture showed strep pneumonia which is sensitive to all antibiotics and the patient complications on a combination of vancomycin and Rocephin. Vancomycin may be ultimately discontinued and this will be discussed further with infectious disease. He will be started on tube feeds today. He is otherwise doing well and there has been no other issues over the past 24 hours. On 05/29/2017 the patient is being seen in the follow-up. The patient remains intubated on a mechanical ventilator and sedated and calm and comfortable. As mentioned earlier, there was a concern of a empyema. Based on that I talked interventional radiology and were able to drain the loculated pleural fluid on the right. The fluid was nonpurulent. The white cell count within the fluid was nonelevated and the cultures still pending for now. The procedure was not the bedside successfully a total of 600 mL of fluid was aspirated from the right lung. At this point in time the right-sided chest tube is connected to Pleur-evac and is not draining actively. The chest x-ray however shows marked improvement in the pneumonia and in the loculated pleural fluid that was seen on the right. ET tube is sitting high in the trachea. The patient is an assist -control mode at the rate of 24, tidal volume of 500, FiO2 of 50% and a PEEP of 8. Morning blood gases showed a pH of 7.41 with a pCO2 of 38 and pO2 of 152 and there has been marked improvement in his oxygenation. The only positive cultures from his pericardial fluid which is strep pneumo and the patient on high-dose Rocephin. Vancomycin was discontinued by infectious disease as the strep pneumo has been sensitive. He was dynamically stable. Tolerating his tube feeds. Was given a sedation holiday this morning and he was able to wake up and follow commands appropriately. The pericardial tube is not draining at this point. On 05/30/2017 I'm seeing this patient in follow-up. The patient is doing well. I reviewed the chest x-ray and there is some residual infiltration of however they x-ray findings have essentially improved and the patient is improving in terms of his pneumonia. The right-sided pleural effusion was also drained percutaneously with a smaller chest tube by interventional radiology. The fluid cultures of been all negative. The blood culture been negative. The pericardial effusion was positive for Streptococcus pneumonia. The patient is on IV Rocephin 2 g every 24 hours. The patient has a pericardial catheter in place and yesterday the drainage was only 20-30 mL, none for today. This morning, the patient was taken off sedation. He woke up appropriately. Unable to complete the. He has breathing trial as the patient was becoming more and more agitated and anxious and his blood pressure was fluctuating and he was becoming tachypneic. At that point I noted the patient had adequate strength an adequate gag and cough reflex. He is at which her breathing index was also reasonable. At that point I decide to extubate this patient without giving him is participating trial. He extubated successfully and currently is on 5 L oxygen by nasal cannula. This was subsequently weaned down to 3 L. Hemodynamically stable. No chest pain. No other significant issues overnight. The patient is somewhat lethargic over he is still recovering from his underlying sedation. No tremors. No agitation. No signs of delirium tremens at this point. On 05/31/2017 I'm seeing this patient in follow-up. As mentioned earlier, the patient was extubated yesterday without any major difficulties. At the later stage the patient started having symptoms of delirium. He was on and off confused throughout the night and he sees a total of 6 mg of IV Ativan for delirium tremens. This morning, he is not oriented to time and place. His multiple of her extremities. No headache. The antibiotics are still unchanged and the patient is on high dose Rocephin regarding pneumococcal pneumonia and acute pneumococcal pericarditis. The pericardial catheter has drained 80 mL yesterday and there is no active drainage from the right-sided chest tube. Chest x-ray still showing breath and pulmonary infiltrates although improved compared to the initial chest x-ray from May 28. The patient is resting comfortably in bed. No signs of respiratory distress. Active issues for now remains his altered mentation and the delirium tremens. Hemodynamically stable. On 06/01/2017 the patient remains extubated. The patient remains in the intensive care unit. Mentation is still impaired and the patient is still delirious and he is not fully recovered from his delirium tremens. He is not agitated at this point. He had received a total of 8 mg of Ativan since yesterday evening. He is breathing comfortably in bed. There pericardial tube has drained 80 mL today and I reviewed the CAT scan of the chest that showed a loculated right-sided pleural effusion measuring 9.5 x 4.6 x 6.4 cm in size and this is obviously smaller compared to the previous measurement. Additional smaller loculation was also seen. Tiny free flowing effusion is also present bilaterally. Several lymph nodes within the mediastinum largest being 13 mm in size and there is not a 14 mm right paratracheal lymph node also. The patient made on IV Rocephin however today he has developed a maculopapular rash over the anterior chest and back area which could be potentially an ALLERGIC reaction. Cephalosporin ALLERGY needs to be considered. Hemodynamically stable. Producing adequate amount of urine output. He is not eating much over his swallowing is medication. White cell count is at 12.3. The rest of the electrodes are within normal limits. No new cultures are available at this point. On 06/02/2017 the patient remains extubated. The patient is still confused although he seems to be much less agitated and not requiring as much Ativan. He received only 2 mg of Ativan yesterday. Much more responsive today. Not diaphoretic and resting comfortably in bed. Oxygen has been taken off and his pulse ox on room air is 95%. Note that ultimately placed was applied to these chest tube yesterday and there was a drainage of 300 mL of pleural fluid post unclamping of the chest tube. The pericardial catheter has been removed. The patient is on IV Rocephin. His rash has subsided. He is on IV Solu-Medrol. Hemodynamically stable. White cell count remains low. He remains afebrile. He is not eating as much over he can swallow his pills. He went into a episode of atrial fibrillation yesterday and he quite Cardizem bolus and drip and currently is back to normal sinus rhythm and he is on Toprol 25 mg by mouth 3 times a day. Physical therapy will be involved in his case today. On 06/03/2017, the activation remains ongoing delirium tremens. Based on his increased agitation and restlessness overnight the patient was given a total of 8 mg of Ativan. This morning he was more so sleepy. His neurologic exam was nonfocal. A CAT scan of the brain was done that showed no acute abnormalities. As mentioned earlier, he received 2 alteplase treatment to his right lung so the small bore chest tube and the patient had approximately 300 mL of drainage following each application. This morning, I repeated a CAT scan of the chest and patient is found to have loculated pleural collection which has increased in size despite the pigtail catheter and there is also other loculated pleural fluid collection in the right lung with some increasing right lower lobe atelectasis. He remains afebrile. He is on IV Rocephin. Hemodynamically stable. No nausea. No vomiting. No abdominal pain. Oral intake remains low. He is able to swallow his pills. We'll discuss his findings with cardiothoracic surgery. It's reasonable to continue the out of place treatment for now in view of the worsening in loculation along the right chest. On 06/04/2017 the patient is able to sit up on a chair. Profoundly weak yet more interactive and less confused compared to yesterday. As mentioned earlier the CAT scan of the brain came back negative. Neurologic exam remains nonfocal. Another TPA treatment was given to this patient locally through his chest tube and this helped with the increased drainage and the patient put out more than 1000 MLS of pleural fluid following the administration of TPA. The patient is not having any respiratory distress at this point. The chest x-ray shows improvement in the volume status and much improvement in the right lower lobe opacity. Not having any chest pain. No fever. He is on IV Rocephin. CT surgeries on the case. Pericardial tube has been removed earlier as mentioned. The patient is seen again today 06/05/2017 in follow-up on the selective care unit. He is a little more awake and alert. Still somewhat disoriented to place and time. Apparently the chest tube was accidentally removed and the patient was trying to get out of bed. Today's chest x-ray does show some bibasilar atelectasis with continued improvement in the right-sided effusion. Echocardiogram gram today revealed a small generalized pericardial effusion. Ejection fraction 55-60%. He has been hemodynamically stable. Maintaining good O2 saturations in the 90s on room air. Afebrile. White count 12.1. Hemoglobin 12.3. He remains on ceftriaxone. The patient is seen again today 06/06/2017 in follow-up on the selective care unit. He is more awake and alert again today compared to yesterday. He does know the month and year now. He is cooperative. He denies any worsening shortness of breath, cough or congestion. He does have some discomfort on inhalation. His chest x-ray is stable. He is maintaining good O2 saturations in the mid 90s on room air. He is currently afebrile. He remains on ceftriaxone. He remains on the CIWA protocol. Objective - Vital Signs Vital signs: Vital Signs Temp 99.4 F 06/06/17 08:00 Pulse 96 06/06/17 08:00 Resp 18 06/06/17 08:00 BP 114/75 06/06/17 08:00 Pulse Ox 95 06/06/17 08:00 Intake & Output 06/05/17 06/06/17 06/06/17 18:59 06:59 18:59 Intake Total 420 120 Balance 420 120 Weight 83 kg Intake: IV 120 NS 120 Oral 420 Other: # Voids 1 1 # Bowel Movements 1 ABP, PAP, CO, CI - Last Documented Arterial Blood Pressure 136/66 - Exam Head exam was generally normal. There was no scleral icterus or corneal arcus. Mucous membranes were moist..Neck was supple and without jugular venous distension, thyromegaly, or carotid bruits. Carotids were easily palpable bilaterally. There was no adenopathy. Head exam was generally normal. There was no scleral icterus or corneal arcus. Mucous membranes were moist. Lungs sounds are diminished bilaterally. Breath sounds are equal and symmetrical however. No wheezes. Heart sounds are regular, positive S1-S2 and there is a friction rub can be appreciated over the anterior chest wall. The abdomen was soft, non- tender, and without masses, organomegaly, or appreciable enlargement of the abdominal aorta.Examination of the extremities revealed easily palpable radial, femoral and pedal pulses. There was no cyanosis, clubbing or edema. Neurologically , the patient is moving all 4 extremities. Periodic confusion is improving. - Labs CBC & Chem 7: 06/06/17 06:42 06/06/17 06:42 Labs: Abnormal Lab Results - Last 24 Hours (Table) 06/05/17 06/05/17 06/06/17 Range/Units 17:14 21:00 06:29 WBC (3.8-10.6) k/uL Plt Count (150-450) k/uL Neutrophils # (1.3-7.7) k/uL Sodium (137-145) mmol/L Creatinine (0.66-1.25) mg/dL Glucose (74-99) mg/dL POC Glucose (mg/dL) 136 H 100 H 136 H (75-99) mg/dL Calcium (8.4-10.2) mg/dL 06/06/17 06/06/17 06/06/17 Range/Units 06:42 06:42 11:27 WBC 17.2 H (3.8-10.6) k/uL Plt Count 464 H (150-450) k/uL Neutrophils # 15.0 H (1.3-7.7) k/uL Sodium 136 L (137-145) mmol/L Creatinine 0.55 L (0.66-1.25) mg/dL Glucose 117 H (74-99) mg/dL POC Glucose (mg/dL) 115 H (75-99) mg/dL Calcium 8.0 L (8.4-10.2) mg/dL Assessment and Plan Plan: Assessment 1 acute hypoxic respiratory failure with development of diffuse breath and pulmonary infiltrates. CAT scan of the chest was reviewed and the findings are consistent with diffuse bilateral pneumonia with loculated right-sided pleural effusion with possibly empyema versus a complicated loculated parapneumonic fluids. A small bore chest tube was inserted to the right hemithorax and total of 600 mL the pleural fluid was aspirated. This was positive for Streptococcus pneumoniae On 05/30/2017, the patient was taken off sedation and he demonstrated adequate ability to maintain his airways patent and he had adequate neurologic function with the patient woke up and he was following commands moving all 4 extremities without any limitation. At that point the decision was to extubate this patient and this was a successful extubation. Currently is on 3 L of oxygen by nasal cannula. On 05/31/2017, the patient remains extubated. A repeat CAT scan of the chest will be obtained to follow-up on the loculated pleural effusion and decided the patient may benefit from an intrapleural TPA. We'll keep the pericardial catheter in place as long as there is still on and off drainage as the patient has drained approximately 80 mL yesterday. The patient is extubated. The patient on IV Rocephin. On 06/01/2017, the CAT scan of the chest was reviewed and the smaller chest tube is still in a good location however it is not draining a lot. Based on this, alteplase will be infused to enhance further drainage from the loculated right-sided pleural effusion. On 06/02/2017 chest x-ray findings are essentially stable. Nevertheless, there has been improved drainage from his right lung and I would consider repeating the alteplase today to improve the drainage and hopefully evacuate that the loculated right-sided pleural effusion. As such the alteplase will be repeated today and we'll monitor the output and repeat chest x-ray in the morning. On 06/03/2017, the patient shows increased loculation and atelectasis of the right lung and the patient has already received 2 alteplase treatment with subsequent worsening. He is an IV Rocephin. No signs of sepsis. Not in acute respiratory distress at this point. On 06/04/2017, the patient is post third TPA treatment which further improve the drainage from the right lung and the patient is feeling well and the chest x -ray shows improvement in the right lower lobe opacity/effusion. We'll continue monitoring the output from the chest tube as long as there is ongoing drainage. On 06/05/2017, the patient inadvertently pulled out his chest tube while trying to climb out of bed last evening. Today's chest x-ray shows continued improvement in the right lower lobe effusion. No plans for reinsertion. On 06/06/2017 the patient mental status has improved. He is oriented 2 now. He denies any worsening shortness of breath, cough or congestion. 2 acute STEMI status post emergent cardiac catheterization and stenting of the LAD 3 acute infectious pneumococcal pericarditis, with a pericardial effusion/ infected pericardial fluid with cultures growing strep pneumo, status post percutaneous drainage of the pericardial effusion at the bedside and the patient has a triple lumen catheter placed within the pericardium. The output from the pericardial tube is minimal at this point, and the tube was pulled out yesterday by CT surgery. Echocardiogram today 06/05/2017 reveals small pericardial effusion. 4 alcoholism 5 delirium tremens , active 6 Maculopapular rash, resolved with Solu-Medrol 7 paroxysmal atrial fibrillation, current rhythm is sinus on beta blockers Plan: The patient was seen and evaluated by Dr. Angel. We'll continue with his current medications. Plan is for discharge to An extended care facility for inpatient rehabilitation We'll continue to follow.
--- NOTE | 2017-06-06 15:18 | P.PN ---
Subjective This patient was admitted with evidence of pericarditis ischemic syndrome. Patient had a stent placement. Subsequently, patient had a pericardial tube placement for drainage of the pericardial effusion. Patient also developed pneumonia and delirium tremens related to alcohol withdrawal. Patient quite confused, is aware of the year and the month. Lying down in bed, sitter at bedside. Patient is walking with help. Hemodynamically stable. No recurrence of atrial fibrillation. Repeat echocardiogram with Doppler study revealed a small pericardial effusion. Overall, patient seemed to be relatively stable. 06/06/2017 Patient seen and examined this morning, much more alert and oriented today. Did complain of an episode of chest discomfort that worsened with deep breathing , likely secondary to pericarditis. Blood pressure 118/70 with a heart rate in the 90s. White blood cell count 17,000. Objective - Vital Signs Vital signs: Vital Signs Temp 98.8 F 06/06/17 12:00 Pulse 92 06/06/17 12:00 Resp 18 06/06/17 12:00 BP 118/76 06/06/17 12:00 Pulse Ox 95 06/06/17 12:00 Intake & Output 06/05/17 06/06/17 06/06/17 18:59 06:59 18:59 Intake Total 420 120 140 Balance 420 120 140 Weight 83 kg 83 kg Intake: IV 120 140 NS 120 40 cefTRIAXone 2,000 mg In 100 Sodium Chloride 0.9% 100 ml @ 100 mls/hr IVPB Q24HR [facility] Rx#:[id number] Oral 420 Other: # Voids 1 1 # Bowel Movements 1 ABP, PAP, CO, CI - Last Documented Arterial Blood Pressure 136/66 - Exam GENERAL EXAM: Patient is sleepy and sluggish but arousable HEENT: Normocephalic. Normal reaction of pupils, equal size, normal range of extraocular motion. No erythema or exudates in the throat. NECK: No masses, no nuchal rigidity. CHEST: No chest wall deformity. LUNGS: Equal air entry with no crackles or wheeze. HEART: S1 and S2 normal with no audible mumurs or gallops. Regular rhythm, femorals equal on both sides.. ABDOMEN: No hepatosplenomegaly, normal bowel sounds, no guarding or rigidity. SKIN: No rashes CENTRAL NERVOUS SYSTEM: Deferred EXTREMITIES: No cyanosis, clubbing or edema. - Labs CBC & Chem 7: 06/06/17 06:42 06/06/17 06:42 Labs: Abnormal Lab Results - Last 24 Hours (Table) 06/05/17 06/05/17 06/06/17 Range/Units 17:14 21:00 06:29 WBC (3.8-10.6) k/uL Plt Count (150-450) k/uL Neutrophils # (1.3-7.7) k/uL Sodium (137-145) mmol/L Creatinine (0.66-1.25) mg/dL Glucose (74-99) mg/dL POC Glucose (mg/dL) 136 H 100 H 136 H (75-99) mg/dL Calcium (8.4-10.2) mg/dL 06/06/17 06/06/17 06/06/17 Range/Units 06:42 06:42 11:27 WBC 17.2 H (3.8-10.6) k/uL Plt Count 464 H (150-450) k/uL Neutrophils # 15.0 H (1.3-7.7) k/uL Sodium 136 L (137-145) mmol/L Creatinine 0.55 L (0.66-1.25) mg/dL Glucose 117 H (74-99) mg/dL POC Glucose (mg/dL) 115 H (75-99) mg/dL Calcium 8.0 L (8.4-10.2) mg/dL Assessment and Plan (1) Pericarditis Status: Acute (2) Alcoholism Status: Acute (3) COPD (chronic obstructive pulmonary disease) Status: Acute (4) Nicotine dependence Status: Acute (5) Paroxysmal atrial fibrillation Status: Acute (6) Pericardial effusion Status: Acute Plan: From cardiology's perspective, we'll continue patient on his current medications. DNP note has been reviewed, I agree with a documented findings and plan of care. Patient was seen and examined.
[2017-06-06 16:36] LABS: Glucose,Whole Blood 107 mg/dL (75-99)
--- NOTE | 2017-06-06 17:50 | P.PN ---
Subjective Mr. Araujo is a 52-year-old male with a past medical history of chronic low back pain, hypertension, alcohol abuse and nicotine dependence coming into the hospital with a chief complaint of chest pain. Patient has history of chronic low back pain and pain of his neck that has been going on but for the past 5 days his symptoms have worsened. Patient's chest pain got worse and he was complaining of 10 out of 10 and so called the EMS. The paramedics did perform an EKG which was suspicious for ST elevation OK. He was given aspirin and nitroglycerin and transferred to [facility] for further evaluation. So the care connector molecular biology scientist Dr. GRICELDA Gonzales was informed, who did an emergent cardiac catheterization. The patient had a stent placed in his LAD and was also noted to have a large pericardial effusion. So CT surgeon Dr. Multani came in and did a pericardiocentesis. There was 380 mL of fluid drained out. And the patient has been transferred to the ICU for further management and care. On 05/26/17- on the night of 05/26 the patient became very combative and was trying to put all his lines and the pericardial catheter. The patient was placed on a CIWA scale and given 10 mg of Ativan without much improvement in his symptoms. So eventually he was given Haldol after which the patient did calm down. Around 230 ml of fluid was drained from the pericardium. On 05/27/17 - patient was pretty confused, agitated and was on restraints , he was placed on BiPAP and as he was desaturating. Dr. Angel had to intubate the patient around 10 AM today due to impending respiratory failure due to ARDS. Patient also had a bronchoscopy done by Dr. Angel this morning. Patient's pericardial fluid came back to be positive for Streptococcus and he has been started on ceftriaxone. On 05/28/2017- patient still remains intubated. He is on a Levophed drip. Sedated on propofol. Patient had thoracentesisdone today and 400 mL of fluid was drained. And the chest tube was placed. 05/29/2017 Patient failed a weaning trial this morning. With sedation holiday patient is able to move all his 4 extremities and follows simple commands. Cultures from bronchial washings showed no growth for the past 24 hours. On 05/30/17 - pt has been extubated successfully and is saturating above 90 % on 3 lt of nasal canula. on 05/31/17 Pt. is confused but able to answer slowly. resp status improved. still on chest tube and pericardial drain tube. 06/01/17 pt is confused able to answer questions no overnight events reported tries to get out of bed ROS_ deferred due to pt's confusion 06/02/2017 Patient is confused however is able to answer some questions appropriately Denies having any additional problems Overnight the patient had changed into atrial fibrillation is currently maintained on a Cardizem drip 06/03/17 confused no overnight events TPA is infused due to complicated effusion, loculated 06/04/17 still confused however improving no overnight events reported 06/05/17 pt pulled his chest tube no other overnight events 06/06/17 more appropriate no chest pain, arielle, nausea, vomiting, diarrhea - Exam GEN. APPEARANCE: no acute distress. HEAD EXAM: Atraumatic EYE EXAM: No pallor no icterus ENT EXAM: ET tube in place NECK EXAM: No carotid bruit. No thyromegaly RESPIRATORY EXAM: Diminished breath sounds bilaterally. Coarse breath sounds in all lung [place] with crackles. CARDIOVASCULAR EXAM: regular S1 and S2 heard. GI/ABDOMINAL EXAM: Soft nontender. No guarding or rigidity. EXTREMITIES EXAM: No cyanosis, no swelling, no edema. NEUROLOGICAL EXAM: confused SKIN EXAM: warm to touch. No rash. Assessment and Plan Plan: ASSESSMENT Septic shock Streptococcal pericarditis Acute hypoxic respiratory failure secondary to ARDS Pneumonia right upper lobe ST elevation OK status post stenting of LAD Pericardial effusion Alcohol withdrawal delirium tremens Chronic liver disease Chronic alcohol abuse Chronic nicotine dependence New-onset atrial fibrillation with rapid ventricular rate PLAN NSR Seroquel bedtime DC planning delirium is still noted ABX with rocephin DVT prophylaxis Objective - Vital Signs Vital signs: Vital Signs Temp 99.4 F 06/06/17 16:00 Pulse 76 06/06/17 16:08 Resp 18 06/06/17 16:00 BP 129/71 06/06/17 16:00 Pulse Ox 92 L 06/06/17 16:00 Intake & Output 06/05/17 06/06/17 06/06/17 18:59 06:59 18:59 Intake Total 420 120 140 Balance 420 120 140 Weight 83 kg 83 kg Intake: IV 120 140 NS 120 40 cefTRIAXone 2,000 mg In 100 Sodium Chloride 0.9% 100 ml @ 100 mls/hr IVPB Q24HR [facility] Rx#:[id number] Oral 420 Other: # Voids 1 1 # Bowel Movements 1 ABP, PAP, CO, CI - Last Documented Arterial Blood Pressure 136/66 - Labs CBC & Chem 7: 06/06/17 06:42 06/06/17 06:42 Labs: Abnormal Lab Results - Last 24 Hours (Table) 06/05/17 06/06/17 06/06/17 Range/Units 21:00 06:29 06:42 WBC 17.2 H (3.8-10.6) k/uL Plt Count 464 H (150-450) k/uL Neutrophils # 15.0 H (1.3-7.7) k/uL Sodium (137-145) mmol/L Creatinine (0.66-1.25) mg/dL Glucose (74-99) mg/dL POC Glucose (mg/dL) 100 H 136 H (75-99) mg/dL Calcium (8.4-10.2) mg/dL 06/06/17 06/06/17 06/06/17 Range/Units 06:42 11:27 16:33 WBC (3.8-10.6) k/uL Plt Count (150-450) k/uL Neutrophils # (1.3-7.7) k/uL Sodium 136 L (137-145) mmol/L Creatinine 0.55 L (0.66-1.25) mg/dL Glucose 117 H (74-99) mg/dL POC Glucose (mg/dL) 115 H 107 H (75-99) mg/dL Calcium 8.0 L (8.4-10.2) mg/dL
[2017-06-06] MEDS: QUEtiapine 50 MG TAB PO SCH (20:30)
[2017-06-06] MEDS: amLODIPine 5 MG TAB PO SCH (20:30)
--- NOTE | 2017-06-06 21:20 | P.PN ---
Subjective Principal diagnosis: Purulent pericarditis This is a 52-year-old male who presented to [facility] emergency center on May 25 due to chest pain that had been going on for 5 days and worsening. Patient was found to have ST elevation and was taken to the cheesemaking laborer with Dr. GRICELDA Gonzales and found to have a 60-70% lesion in the LAD and was subsequently stented. Patient also was found to have a large pericardial effusion and was started on Zosyn and Levaquin and admitted to the intensive care unit. He underwent a bedside echo guided pericardiocentesis and insertion of a pericardial drain done on May 25 with removal of 380 ML's of cloudy tannish fluid. Yesterday he had 225 mL removed in today 125 mL. Chest x -ray showed cardiomegaly, right upper lobe consolidation and bibasilar at infiltrate or atelectasis. He is also followed by Dr. Angel from pulmonary medicine and patient was on BiPAP this morning pulseox was 80% with agitation and confusion and ended up being intubated today. He has presented with a temperature of 101.1, white count of 29.7, sodium 123, blood sugar 314, lactic acid 2.7. Urinalysis was cloudy, protein 1+, blood moderate, leukocyte esterase trace, wbc's 15, clumps rare bacteria rare. Urine culture is in progress and blood cultures status received. Pericardial fluid alphahemolytic strep. Patient has history of drinking 18 beers per day and is on the CIWA protocol. Bronchoscopy was performed. Patient does have a chest tube now in place with decreasing amounts of drainage. Little drainage from the pericardial drain patient has tolerated extubation well, confusion is improved no active hallucinations. Out of ICU still with sitter. Objective - Vital Signs Vital signs: Vital Signs Temp 99.4 F 06/06/17 16:00 Pulse 79 06/06/17 20:51 Resp 18 06/06/17 16:00 BP 129/71 06/06/17 16:00 Pulse Ox 93 L 06/06/17 20:42 Intake & Output 06/06/17 06/06/17 06/07/17 06:59 18:59 06:59 Intake Total 120 140 Balance 120 140 Weight 83 kg 83 kg Intake: IV 120 140 NS 120 40 cefTRIAXone 2,000 mg In 100 Sodium Chloride 0.9% 100 ml @ 100 mls/hr IVPB Q24HR [facility] Rx#:[id number] Other: # Voids 1 ABP, PAP, CO, CI - Last Documented Arterial Blood Pressure 136/66 - Exam Gen: This is a 52-year-old male. Patient is now extubated but is not a good historian HEENT: Head is atraumatic, normocephalic. Sclerae is anicteric. Dentition is in poor order NECK: Supple. No JVD. No lymphadenopathy. No thyromegaly. LUNGS: Diminished bilaterally with scattered crackles. Decreased breath sounds especially to the right base, chest tube removed with improved aeration right base. HEART: Regular rate and rhythm. No murmur. pericardial tube removed. minimal crunch at times ABDOMEN: Soft. Bowel sounds are present. No masses. No tenderness. EXTREMITIES: No pedal edema. No calf swelling NEUROLOGICAL: The patientremains a poor historian. But did move upper and lower extremities.no hallucinations Skin is without rash or visualized breakdown - Labs CBC & Chem 7: 06/06/17 06:42 06/06/17 06:42 Labs: Abnormal Lab Results - Last 24 Hours (Table) 06/05/17 06/06/17 06/06/17 Range/Units 21:00 06:29 06:42 WBC 17.2 H (3.8-10.6) k/uL Plt Count 464 H (150-450) k/uL Neutrophils # 15.0 H (1.3-7.7) k/uL Sodium (137-145) mmol/L Creatinine (0.66-1.25) mg/dL Glucose (74-99) mg/dL POC Glucose (mg/dL) 100 H 136 H (75-99) mg/dL Calcium (8.4-10.2) mg/dL 06/06/17 06/06/17 06/06/17 Range/Units 06:42 11:27 16:33 WBC (3.8-10.6) k/uL Plt Count (150-450) k/uL Neutrophils # (1.3-7.7) k/uL Sodium 136 L (137-145) mmol/L Creatinine 0.55 L (0.66-1.25) mg/dL Glucose 117 H (74-99) mg/dL POC Glucose (mg/dL) 115 H 107 H (75-99) mg/dL Calcium 8.0 L (8.4-10.2) mg/dL Laboratory Results WBC 17.2 k/uL (3.8-10.6) H 06/06/17 06:42 RBC 4.36 m/uL (4.30-5.90) 06/06/17 06:42 Hgb 13.7 gm/dL (13.0-17.5) 06/06/17 06:42 Hct 41.9 % (39.0-53.0) 06/06/17 06:42 MCV 96.0 fL (80.0-100.0) 06/06/17 06:42 MCH 31.4 pg (25.0-35.0) 06/06/17 06:42 MCHC 32.7 g/dL (31.0-37.0) 06/06/17 06:42 RDW 13.4 % (11.5-15.5) 06/06/17 06:42 Plt Count 464 k/uL (150-450) H 06/06/17 06:42 Neutrophils % 88 % 06/06/17 06:42 Neutrophils % (Manual) 54.5 % 05/26/17 05:35 Band Neutrophils % 39.0 % 05/26/17 05:35 Lymphocytes % 9 % 06/06/17 06:42 Lymphocytes % (Manual) 4.5 % 05/26/17 05:35 Monocytes % 3 % 06/06/17 06:42 Monocytes % (Manual) 1.5 % 05/26/17 05:35 Eosinophils % 0 % 06/06/17 06:42 Basophils % 0 % 06/06/17 06:42 Metamyelocytes % 0.5 % 05/26/17 05:35 Neutrophils # 15.0 k/uL (1.3-7.7) H 06/06/17 06:42 Neutrophils # (Manual) 20.4 k/uL (1.3-7.7) H 05/26/17 05:35 Lymphocytes # 1.5 k/uL (1.0-4.8) 06/06/17 06:42 Lymphocytes # (Manual) 1.0 k/uL (1.0-4.8) 05/26/17 05:35 Monocytes # 0.5 k/uL (0-1.0) 06/06/17 06:42 Monocytes # (Manual) 0.3 k/uL (0-1.0) 05/26/17 05:35 Eosinophils # 0.1 k/uL (0-0.7) 06/06/17 06:42 Basophils # 0.0 k/uL (0-0.2) 06/06/17 06:42 Nucleated RBCs 0 /100 WBC (0-0) 05/26/17 05:35 Manual Slide Review Performed 05/25/17 15:00 Toxic Granulation Present 05/26/17 05:35 RBC Morphology Normal 05/25/17 15:00 Polychromasia Present 05/26/17 05:35 Poikilocytosis (manual Present 05/26/17 05:35 Anisocytosis (manual) Present 05/26/17 05:35 PT 12.1 sec (9.0-12.0) H 05/28/17 10:45 INR 1.2 (<1.2) H 05/28/17 10:45 APTT 25.9 sec (22.0-30.0) 05/25/17 15:00 D-Dimer 1.32 mg/L FEU (<0.60) H 05/25/17 15:00 Sample Site charlene 05/30/17 05:16 ABG pH 7.49 (7.35-7.45) H 05/30/17 05:16 ABG pCO2 34 mmHg (35-45) L 05/30/17 05:16 ABG pO2 85 mmHg (83-108) 05/30/17 05:16 ABG HCO3 26 mmol/L (21-25) H 05/30/17 05:16 ABG Total CO2 27 mmol/L (19-24) H 05/30/17 05:16 ABG O2 Saturation 97.0 % (94-97) 05/30/17 05:16 ABG Base Excess 2.4 mmol/L 05/30/17 05:16 ABG Hematocrit 48 % (34.0-46.0) H 05/25/17 16:00 FiO2 40 % 05/30/17 05:16 Sodium 136 mmol/L (137-145) L 06/06/17 06:42 Potassium 3.6 mmol/L (3.5-5.1) 06/06/17 06:42 Chloride 106 mmol/L (98-107) 06/06/17 06:42 Carbon Dioxide 24 mmol/L (22-30) 06/06/17 06:42 Anion Gap 6 mmol/L 06/06/17 06:42 BUN 15 mg/dL (9-20) 06/06/17 06:42 Creatinine 0.55 mg/dL (0.66-1.25) L 06/06/17 06:42 Est GFR (MDRD) Af Amer >60 (>60 ml/min/1.73 sqM) 06/06/17 06:42 Est GFR (MDRD) Non-Af >60 (>60 ml/min/1.73 sqM) 06/06/17 06:42 Glucose 117 mg/dL (74-99) H 06/06/17 06:42 POC Glucose (mg/dL) 107 mg/dL (75-99) H 06/06/17 16:33 POC Glu Medical Microbiologist ID Bharat York 06/06/17 16:[address] Glu mg/dL 105 mg/dL 05/25/17 15:00 Hemoglobin A1c 5.3 % (4.2-6.1) 05/25/17 15:00 Lactic Ac Sepsis Rflx Y 05/26/17 06:08 Plasma Lactic Acid Rob 2.7 mmol/L (0.7-2.0) H* 05/26/17 09:47 Calcium 8.0 mg/dL (8.4-10.2) L 06/06/17 06:42 Phosphorus 2.9 mg/dL (2.5-4.5) 06/06/17 06:42 Magnesium 1.7 mg/dL (1.6-2.3) 06/06/17 06:42 Total Bilirubin 2.2 mg/dL (0.2-1.3) H 05/25/17 15:00 AST 117 U/L (17-59) H 05/25/17 15:00 ALT 72 U/L (21-72) 05/25/17 15:00 Alkaline Phosphatase 75 U/L (38-126) 05/25/17 15:00 Lactate Dehydrogenase 861 U/L (313-618) H 05/28/17 04:30 Total Creatine Kinase 29 U/L (55-170) L 05/25/17 15:00 CK-MB (CK-2) 0.6 ng/mL (0.0-2.4) 05/25/17 15:00 CK-MB (CK-2) Rel Index 2.1 05/25/17 15:00 Troponin I 0.030 ng/mL (0.000-0.034) 05/26/17 05:35 Total Protein 4.8 g/dL (6.3-8.2) L 05/28/17 04:30 Albumin 3.2 g/dL (3.5-5.0) L 05/25/17 15:00 Urine Color Yellow 05/26/17 05:00 Urine Appearance Cloudy (Clear) 05/26/17 05:00 Urine pH 5.5 (5.0-8.0) 05/26/17 05:00 Ur Specific [place] 1.030 (1.001-1.035) 05/26/17 05:00 Urine Protein 1+ (Negative) H 05/26/17 05:00 Urine Glucose (UA) Negative (Negative) 05/26/17 05:00 Urine Ketones Negative (Negative) 05/26/17 05:00 Urine Blood Moderate (Negative) H 05/26/17 05:00 Urine Nitrite Negative (Negative) 05/26/17 05:00 Urine Bilirubin Negative (Negative) 05/26/17 05:00 Urine Urobilinogen 2.0 mg/dL (<2.0) 05/26/17 05:00 Ur Leukocyte Esterase Trace (Negative) H 05/26/17 05:00 Urine RBC 10 /hpf (0-5) H 05/26/17 05:00 Urine WBC 15 /hpf (0-5) H 05/26/17 05:00 Urine WBC Clumps Rare /hpf (None) H 05/26/17 05:00 Ur Squamous Epith Cells 1 /hpf (0-4) 05/26/17 05:00 Amorphous Sediment Rare /hpf (None) H 05/26/17 05:00 Urine Bacteria Rare /hpf (None) H 05/26/17 05:00 Urine Mucus Rare /hpf (None) H 05/26/17 05:00 Fluid Source Pleural 05/28/17 12:55 Fluid Color Yellow 05/25/17 18:20 Fluid Appearance Hazy 05/28/17 12:55 Fluid RBC 440 /uL 05/28/17 12:55 Fluid Nucleated Cells 170 /uL 05/28/17 12:55 Fluid Polynuclear WBCs 83 % 05/28/17 12:55 Fluid Mononuclear WBCs 17 % 05/28/17 12:55 Body Fluid Glucose Source Not Reportable 05/28/17 12:55 Fluid Glucose <4 mg/dL 05/28/17 12:55 Body Fluid Protein Source Not Reportable 05/28/17 12:55 Fluid Total Protein 4300 mg/dL 05/28/17 12:55 Body Fluid LDH Source Not Reportable 05/28/17 12:55 Fluid LDH 3388 U/L 05/28/17 12:55 Fluid Comment 05/25/17 18:20 Vancomycin Trough 24.6 ug/mL 05/28/17 04:30 C. difficile (EIA) Intrp Negative (Negative) 05/31/17 04:20 Virus Source See Below 05/27/17 11:50 Viral Test See Below 05/27/17 11:50 Virus Analysis Interp See Below 05/27/17 11:50 Blood Type O Positive 05/25/17 15:00 Blood Type Recheck No 05/25/17 15:00 Antibody Screen NEGATIVE 05/25/17 15:00 Transfuse Plasma 05/25/2017 05/25/17 15:00 Spec Expiration Date 05/28/2017 - 229905/25/17 15:00 Microbiology 05/27/17 11:50 Bronchial Washings - Random Acid Fast Bacilli Smear - Final 05/27/17 11:50 Bronchial Washings - Random Acid Fast Bacilli Culture - Preliminary 05/25/17 18:20 Pericardial Fluid Acid Fast Bacilli Smear - Final 05/25/17 18:20 Pericardial Fluid Acid Fast Bacilli Culture - Preliminary 05/27/17 11:50 Bronchial Washings - Random Fungal Culture - Preliminary Rachel albicans 05/28/17 12:55 Pleural Fluid Anaerobic Culture - Final 05/26/17 09:47 Blood Blood Culture - Final No Growth after 144 hours 05/26/17 09:47 Blood Blood Culture - Final No Growth after 144 hours 05/28/17 12:55 Pleural Fluid Gram Stain - Final 05/28/17 12:55 Pleural Fluid Body Fluid Culture - Final 05/25/17 18:20 Pericardial Fluid Anaerobic Culture - Final 05/27/17 11:50 Bronchial Washings - Random Gram Stain - Final 05/27/17 11:50 Bronchial Washings - Random Bronchial Washings Culture - Final Rachel albicans 05/25/17 18:20 Pericardial Fluid Gram Stain - Final 05/25/17 18:20 Pericardial Fluid Body Fluid Culture - Final Streptococcus pneumoniae 05/26/17 05:00 Urine,Catheterized Urine Culture - Final Assessment and Plan (1) Alcoholism Status: Acute (2) Acute hypoxemic respiratory failure Status: Acute (3) Purulent pericarditis Narrative/Plan: 52-year-old gentleman who has a history of alcoholism who has radiological evidence of pneumonia. It is highly likely that the pneumonia resulted in the purulent pericarditis via direct extension. alpha streptococci have been isolated. It has been noted to be Streptococcus pneumoniae that is not drug- resistant. Antibiotic therapy with Rocephin and vancomycin is being utilized at this time pending further data. Blood cultures negative so far. As noted the patient's alcohol withdrawal is being treated, and his respiratory failure hopefully respond well to antibiotic therapy, treatment of the purulent pericarditis and underlying sepsis. The extensive leukocytosis is directly related to the purulent pericarditis and pneumonia, and with this current underlying status of alcoholism is a good prognostic sign and he was able to generate a leukocytosis. Chest tube is been placed in further cultures are pending. Blood cultures negative so far. Overall there is been improvement of his status. He is now extubated and doing well off of the ventilator. He is comfortable and neurologically not agitated. Pericardial drain removed. Chest tube with minimal drainage. Is showing improvement. As noted cultures have Streptococcus pneumoniae and doing well with current antibiotic therapy of Rocephin. Will need several weeks of intravenous antibiotic therapy. Received a couple doses of Solu-Medrol and has had a increase of his leukocytosis. Overall he is improved. Status: Acute
[2017-06-06 22:00] LABS: Glucose,Whole Blood 134 mg/dL (75-99)
[2017-06-06] MEDS: LORazepam 2 MG/ML SYRINGE IV PRN (23:46)
[2017-06-07] MEDS: PANTOPRAZOLE 40 MG TABLET PO SCH (06:25)
[2017-06-07] MEDS: INSULIN LISPRO (humaLOG) 300 UNIT/3 ML VIAL SQ SCH ×4 (06:26→21:13)
[2017-06-07 06:30] LABS: Glucose,Whole Blood 111 mg/dL (75-99)
[2017-06-07 07:25] LABS: Basophils % (A) 0 %; CH 31.1; CHCM 33.3; Eosinophils % (A) 0 %; HDW 2.52; HGB 12.6 gm/dL (13.0-17.5); Luc # (Auto) 0.13; Luc % (Auto) 1; Lymphocytes # (A) 1.6 k/uL (1.0-4.8); Lymphocytes % (A) 9 %; MCH 31.9 pg (25.0-35.0); MCV 93.6 fL (80.0-100.0); Mean Platelet Volume 7.3; Monocytes # (A) 0.6 k/uL (0-1.0); Monocytes % (A) 3 %; Neutrophils # (A) 14.8 k/uL (1.3-7.7); Neutrophils % (A) 86 %; RBC 3.96 m/uL (4.30-5.90); RDW 12.9 % (11.5-15.5); WBC 17.1 k/uL (3.8-10.6); WBC (Perox) 17.01
[2017-06-07 07:28] LABS: Anion Gap 5 mmol/L; Blood Urea Nitrogen 10 mg/dL (9-20); Carbon Dioxide 26 mmol/L (22-30); Chloride 105 mmol/L (98-107); Glucose 99 mg/dL (74-99); Magnesium 1.7 mg/dL (1.6-2.3); Non-African American GFR(MDRD) >60 (>60 ml/min/1.73 sqM); Phosphorous 2.7 mg/dL (2.5-4.5); Potassium 3.3 mmol/L (3.5-5.1); Sodium 136 mmol/L (137-145)
--- NOTE | 2017-06-07 08:02 | XR ---
EXAMINATION TYPE: XR chest 1V portable DATE OF EXAM: 06/07/2017 HISTORY: chest tube. REFERENCE: Previous study dated 06/06/2017. FINDINGS: A left subclavian catheter remains in place. Its tip is in the superior vena cava. The heart is enlarged. There is left basilar airspace disease. There is atelectasis in the right lung . There is a left-sided effusion. IMPRESSION: NO SIGNIFICANT INTERVAL CHANGE IN APPEARANCE OF THE CHEST.
[2017-06-07] MEDS ORDERED: Potassium Replacement Protocol 1 EACH MISC MISCELLANE PRN ×2 (08:35→12:39)
[2017-06-07] MEDS: METOPROLOL TARTRATE 50 MG TAB PO SCH ×3 (08:39→21:45)
[2017-06-07] MEDS: ATORVASTATIN 40 MG TAB PO SCH (08:40)
[2017-06-07] MEDS: ENOXAPARIN 40 MG/0.4 ML SYRINGE SQ SCH (08:40)
[2017-06-07] MEDS: cefTRIAXone 2,000 MG in SODIUM CHLORIDE 0.9% 100 ML IVPB SCH (08:40)
[2017-06-07] MEDS: ASPIRIN 81 MG CHEW PO SCH (08:40)
[2017-06-07] MEDS: CLOPIDOGREL 75 MG TAB PO SCH (08:40)
[2017-06-07] MEDS: IPRATROPIUM-ALBUTEROL 3 ML NEB INHALATION SCH ×4 (09:10→19:19)
[2017-06-07] MEDS: POTASSIUM CHLORIDE ER 20 MEQ TAB.ER PO SCH ×2 (09:50→10:53)
[2017-06-07 11:37] LABS: Glucose,Whole Blood 124 mg/dL (75-99)
[2017-06-07] MEDS ORDERED: POTASSIUM CHLORIDE 20 MEQ in WATER FOR INJECTION 1 100ML.BAG IVPB ONE (12:39)
--- NOTE | 2017-06-07 14:12 | P.PN ---
Subjective 52-year-old gentleman, known history of alcoholism, presented to the hospital because of increased chest pain. He was found to have ST segment elevation myocardial infarction. The patient was taken to [facility] on an emergent basis and he had stents placed into his LAD for a 70% LAD lesion. He was also found to have a large pericardial effusion and leukocytosis. He was seen by surgery and he underwent a bedside pericardiocentesis and total of 380 mL of fluid was drained from the pericardial space. Initial cultures are growing up hemolytic strep and the patient is or the being covered with a combination of Rocephin and vancomycin. Note that his initial chest x-ray on admission showed a right upper lobe consolidation and subsequent x-ray showed diffuse lateral pulmonary infiltrates typical of an underlying ARDS. The patient also went into delirium tremens. Overnight she had become quite a bit agitated and he had required a total of 8 mg of Ativan throughout the night. This morning, the patient is lethargic, and 2. restraints, confused and sometimes agitated. He is on a BiPAP at a pressure of 12/5 cm of water with an FiO2 of 100%. Earlier he was on a percent and he had to be brought up to 100% to maintain a saturation above 90%. He has good pulses in all 4 extremities. He is producing approximately 50 mL an hour. He is on normal saline at the rate of 75 mL an hour. White cell count remains elevated at 28.6. He is on no pressors for now. No significant electrode abnormalities. No acidosis. Echocardiogram that was done earlier showed a preserved LV function. The patient has a pericardial tube in place and total amount of output that was drained this morning is around 125, brownish to yellowish pericardial fluid. Note that the fluid analysis was done earlier showed elevated LDH and protein. White cell count is also elevated at 44,000 with 92% on a nuclear white cells. On 05/28/2017 the patient remains intubated on a mechanical ventilator. He is sedated with Diprivan and is calm and comfortable. Spiked a high rate of the prevent, the patient is still easily arousable. Hemodynamically stable on no pressors. He remains on a mechanical ventilator on assist control mode at the rate of 24, tidal volume 500, FiO2 of 50% and a PEEP of 8. The blood gases from this morning showed a pH of 7.42 with a pCO2 of 36 and pO2 of 69. I reviewed the chest x-ray from today that shows no interval change and there is diffuse breath and pulmonary infiltrates and ET tube is in a good location. The CAT scan of the chest that was done yesterday showed development of a loculated pleural effusion on the right more so a large pocket sitting in the posterior aspect of the right hemithorax which I think it's accessible for percutaneous drainage and for that reason I discussed this case with interventional radiology and will going to proceed with this procedure despite the fact that the patient on a combination of aspirin and Plavix. I think the benefits of this procedure will outweigh the risk. Meanwhile a bronchoscopy and the bronchioloalveolar lavage was done yesterday and the cultures are all negative thus far. The patient's pericardial effusion culture showed strep pneumonia which is sensitive to all antibiotics and the patient complications on a combination of vancomycin and Rocephin. Vancomycin may be ultimately discontinued and this will be discussed further with infectious disease. He will be started on tube feeds today. He is otherwise doing well and there has been no other issues over the past 24 hours. On 05/29/2017 the patient is being seen in the follow-up. The patient remains intubated on a mechanical ventilator and sedated and calm and comfortable. As mentioned earlier, there was a concern of a empyema. Based on that I talked interventional radiology and were able to drain the loculated pleural fluid on the right. The fluid was nonpurulent. The white cell count within the fluid was nonelevated and the cultures still pending for now. The procedure was not the bedside successfully a total of 600 mL of fluid was aspirated from the right lung. At this point in time the right-sided chest tube is connected to Pleur-evac and is not draining actively. The chest x-ray however shows marked improvement in the pneumonia and in the loculated pleural fluid that was seen on the right. ET tube is sitting high in the trachea. The patient is an assist -control mode at the rate of 24, tidal volume of 500, FiO2 of 50% and a PEEP of 8. Morning blood gases showed a pH of 7.41 with a pCO2 of 38 and pO2 of 152 and there has been marked improvement in his oxygenation. The only positive cultures from his pericardial fluid which is strep pneumo and the patient on high-dose Rocephin. Vancomycin was discontinued by infectious disease as the strep pneumo has been sensitive. He was dynamically stable. Tolerating his tube feeds. Was given a sedation holiday this morning and he was able to wake up and follow commands appropriately. The pericardial tube is not draining at this point. On 05/30/2017 I'm seeing this patient in follow-up. The patient is doing well. I reviewed the chest x-ray and there is some residual infiltration of however they x-ray findings have essentially improved and the patient is improving in terms of his pneumonia. The right-sided pleural effusion was also drained percutaneously with a smaller chest tube by interventional radiology. The fluid cultures of been all negative. The blood culture been negative. The pericardial effusion was positive for Streptococcus pneumonia. The patient is on IV Rocephin 2 g every 24 hours. The patient has a pericardial catheter in place and yesterday the drainage was only 20-30 mL, none for today. This morning, the patient was taken off sedation. He woke up appropriately. Unable to complete the. He has breathing trial as the patient was becoming more and more agitated and anxious and his blood pressure was fluctuating and he was becoming tachypneic. At that point I noted the patient had adequate strength an adequate gag and cough reflex. He is at which her breathing index was also reasonable. At that point I decide to extubate this patient without giving him is participating trial. He extubated successfully and currently is on 5 L oxygen by nasal cannula. This was subsequently weaned down to 3 L. Hemodynamically stable. No chest pain. No other significant issues overnight. The patient is somewhat lethargic over he is still recovering from his underlying sedation. No tremors. No agitation. No signs of delirium tremens at this point. On 05/31/2017 I'm seeing this patient in follow-up. As mentioned earlier, the patient was extubated yesterday without any major difficulties. At the later stage the patient started having symptoms of delirium. He was on and off confused throughout the night and he sees a total of 6 mg of IV Ativan for delirium tremens. This morning, he is not oriented to time and place. His multiple of her extremities. No headache. The antibiotics are still unchanged and the patient is on high dose Rocephin regarding pneumococcal pneumonia and acute pneumococcal pericarditis. The pericardial catheter has drained 80 mL yesterday and there is no active drainage from the right-sided chest tube. Chest x-ray still showing breath and pulmonary infiltrates although improved compared to the initial chest x-ray from May 28. The patient is resting comfortably in bed. No signs of respiratory distress. Active issues for now remains his altered mentation and the delirium tremens. Hemodynamically stable. On 06/01/2017 the patient remains extubated. The patient remains in the intensive care unit. Mentation is still impaired and the patient is still delirious and he is not fully recovered from his delirium tremens. He is not agitated at this point. He had received a total of 8 mg of Ativan since yesterday evening. He is breathing comfortably in bed. There pericardial tube has drained 80 mL today and I reviewed the CAT scan of the chest that showed a loculated right-sided pleural effusion measuring 9.5 x 4.6 x 6.4 cm in size and this is obviously smaller compared to the previous measurement. Additional smaller loculation was also seen. Tiny free flowing effusion is also present bilaterally. Several lymph nodes within the mediastinum largest being 13 mm in size and there is not a 14 mm right paratracheal lymph node also. The patient made on IV Rocephin however today he has developed a maculopapular rash over the anterior chest and back area which could be potentially an ALLERGIC reaction. Cephalosporin ALLERGY needs to be considered. Hemodynamically stable. Producing adequate amount of urine output. He is not eating much over his swallowing is medication. White cell count is at 12.3. The rest of the electrodes are within normal limits. No new cultures are available at this point. On 06/02/2017 the patient remains extubated. The patient is still confused although he seems to be much less agitated and not requiring as much Ativan. He received only 2 mg of Ativan yesterday. Much more responsive today. Not diaphoretic and resting comfortably in bed. Oxygen has been taken off and his pulse ox on room air is 95%. Note that ultimately placed was applied to these chest tube yesterday and there was a drainage of 300 mL of pleural fluid post unclamping of the chest tube. The pericardial catheter has been removed. The patient is on IV Rocephin. His rash has subsided. He is on IV Solu-Medrol. Hemodynamically stable. White cell count remains low. He remains afebrile. He is not eating as much over he can swallow his pills. He went into a episode of atrial fibrillation yesterday and he quite Cardizem bolus and drip and currently is back to normal sinus rhythm and he is on Toprol 25 mg by mouth 3 times a day. Physical therapy will be involved in his case today. On 06/03/2017, the activation remains ongoing delirium tremens. Based on his increased agitation and restlessness overnight the patient was given a total of 8 mg of Ativan. This morning he was more so sleepy. His neurologic exam was nonfocal. A CAT scan of the brain was done that showed no acute abnormalities. As mentioned earlier, he received 2 alteplase treatment to his right lung so the small bore chest tube and the patient had approximately 300 mL of drainage following each application. This morning, I repeated a CAT scan of the chest and patient is found to have loculated pleural collection which has increased in size despite the pigtail catheter and there is also other loculated pleural fluid collection in the right lung with some increasing right lower lobe atelectasis. He remains afebrile. He is on IV Rocephin. Hemodynamically stable. No nausea. No vomiting. No abdominal pain. Oral intake remains low. He is able to swallow his pills. We'll discuss his findings with cardiothoracic surgery. It's reasonable to continue the out of place treatment for now in view of the worsening in loculation along the right chest. On 06/04/2017 the patient is able to sit up on a chair. Profoundly weak yet more interactive and less confused compared to yesterday. As mentioned earlier the CAT scan of the brain came back negative. Neurologic exam remains nonfocal. Another TPA treatment was given to this patient locally through his chest tube and this helped with the increased drainage and the patient put out more than 1000 MLS of pleural fluid following the administration of TPA. The patient is not having any respiratory distress at this point. The chest x-ray shows improvement in the volume status and much improvement in the right lower lobe opacity. Not having any chest pain. No fever. He is on IV Rocephin. CT surgeries on the case. Pericardial tube has been removed earlier as mentioned. The patient is seen again today 06/05/2017 in follow-up on the selective care unit. He is a little more awake and alert. Still somewhat disoriented to place and time. Apparently the chest tube was accidentally removed and the patient was trying to get out of bed. Today's chest x-ray does show some bibasilar atelectasis with continued improvement in the right-sided effusion. Echocardiogram gram today revealed a small generalized pericardial effusion. Ejection fraction 55-60%. He has been hemodynamically stable. Maintaining good O2 saturations in the 90s on room air. Afebrile. White count 12.1. Hemoglobin 12.3. He remains on ceftriaxone. The patient is seen again today 06/06/2017 in follow-up on the selective care unit. He is more awake and alert again today compared to yesterday. He does know the month and year now. He is cooperative. He denies any worsening shortness of breath, cough or congestion. He does have some discomfort on inhalation. His chest x-ray is stable. He is maintaining good O2 saturations in the mid 90s on room air. He is currently afebrile. He remains on ceftriaxone. He remains on the CIWA protocol. The patient is seen again today 06/07/2017 in follow-up on the selective care unit. He continues to be more awake, alert and oriented daily. He is calm and cooperative. He currently denies any shortness of breath, cough or congestion. No chest pain. No pain on inhalation. He is maintaining good O2 saturations in the 90s on room air. Slightly tachycardic. Afebrile. Objective - Vital Signs Vital signs: Vital Signs Temp 99.0 F 06/07/17 11:53 Pulse 101 H 06/07/17 11:53 Resp 18 06/07/17 11:53 BP 112/70 06/07/17 11:53 Pulse Ox 95 06/07/17 11:53 Intake & Output 06/06/17 06/07/17 06/07/17 18:59 06:59 18:59 Intake Total 140 410 80 Balance 140 410 80 Weight 83 kg 92.2 kg Intake: IV 140 50 80 NS 40 50 80 cefTRIAXone 2,000 mg In 100 Sodium Chloride 0.9% 100 ml @ 100 mls/hr IVPB Q24HR [facility] Rx#:[id number] Oral 360 Other: Voiding Method Urinal # Voids 2 # Bowel Movements 1 ABP, PAP, CO, CI - Last Documented Arterial Blood Pressure 136/66 - Exam Head exam was generally normal. There was no scleral icterus or corneal arcus. Mucous membranes were moist..Neck was supple and without jugular venous distension, thyromegaly, or carotid bruits. Carotids were easily palpable bilaterally. There was no adenopathy. Head exam was generally normal. There was no scleral icterus or corneal arcus. Mucous membranes were moist. Lungs sounds are diminished bilaterally. Breath sounds are equal and symmetrical however. No wheezes. Heart sounds are regular, positive S1-S2 and there is a friction rub can be appreciated over the anterior chest wall. The abdomen was soft, non- tender, and without masses, organomegaly, or appreciable enlargement of the abdominal aorta. Examination of the extremities revealed easily palpable radial , femoral and pedal pulses. There was no cyanosis, clubbing or edema. Neurologically , the patient is moving all 4 extremities. Periodic confusion is improving. - Labs CBC & Chem 7: 06/07/17 06:38 06/07/17 12:15 Labs: Abnormal Lab Results - Last 24 Hours (Table) 06/06/17 06/06/17 06/07/17 Range/Units 16:33 21:19 06:26 WBC (3.8-10.6) k/uL RBC (4.30-5.90) m/uL Hgb (13.0-17.5) gm/dL Hct (39.0-53.0) % Neutrophils # (1.3-7.7) k/uL Sodium (137-145) mmol/L Potassium (3.5-5.1) mmol/L Creatinine (0.66-1.25) mg/dL POC Glucose (mg/dL) 107 H 134 H 111 H (75-99) mg/dL Calcium (8.4-10.2) mg/dL 06/07/17 06/07/17 06/07/17 Range/Units 06:35 06:38 11:35 WBC 17.1 H (3.8-10.6) k/uL RBC 3.96 L (4.30-5.90) m/uL Hgb 12.6 L (13.0-17.5) gm/dL Hct 37.0 L (39.0-53.0) % Neutrophils # 14.8 H (1.3-7.7) k/uL Sodium 136 L (137-145) mmol/L Potassium 3.3 L (3.5-5.1) mmol/L Creatinine 0.55 L (0.66-1.25) mg/dL POC Glucose (mg/dL) 124 H (75-99) mg/dL Calcium 8.0 L (8.4-10.2) mg/dL 06/07/17 Range/Units 12:15 WBC (3.8-10.6) k/uL RBC (4.30-5.90) m/uL Hgb (13.0-17.5) gm/dL Hct (39.0-53.0) % Neutrophils # (1.3-7.7) k/uL Sodium (137-145) mmol/L Potassium 3.4 L (3.5-5.1) mmol/L Creatinine (0.66-1.25) mg/dL POC Glucose (mg/dL) (75-99) mg/dL Calcium (8.4-10.2) mg/dL Assessment and Plan Plan: Assessment 1 acute hypoxic respiratory failure with development of diffuse breath and pulmonary infiltrates. CAT scan of the chest was reviewed and the findings are consistent with diffuse bilateral pneumonia with loculated right-sided pleural effusion with possibly empyema versus a complicated loculated parapneumonic fluids. A small bore chest tube was inserted to the right hemithorax and total of 600 mL the pleural fluid was aspirated. This was positive for Streptococcus pneumoniae On 05/30/2017, the patient was taken off sedation and he demonstrated adequate ability to maintain his airways patent and he had adequate neurologic function with the patient woke up and he was following commands moving all 4 extremities without any limitation. At that point the decision was to extubate this patient and this was a successful extubation. Currently is on 3 L of oxygen by nasal cannula. On 05/31/2017, the patient remains extubated. A repeat CAT scan of the chest will be obtained to follow-up on the loculated pleural effusion and decided the patient may benefit from an intrapleural TPA. We'll keep the pericardial catheter in place as long as there is still on and off drainage as the patient has drained approximately 80 mL yesterday. The patient is extubated. The patient on IV Rocephin. On 06/01/2017, the CAT scan of the chest was reviewed and the smaller chest tube is still in a good location however it is not draining a lot. Based on this, alteplase will be infused to enhance further drainage from the loculated right-sided pleural effusion. On 06/02/2017 chest x-ray findings are essentially stable. Nevertheless, there has been improved drainage from his right lung and I would consider repeating the alteplase today to improve the drainage and hopefully evacuate that the loculated right-sided pleural effusion. As such the alteplase will be repeated today and we'll monitor the output and repeat chest x-ray in the morning. On 06/03/2017, the patient shows increased loculation and atelectasis of the right lung and the patient has already received 2 alteplase treatment with subsequent worsening. He is an IV Rocephin. No signs of sepsis. Not in acute respiratory distress at this point. On 06/04/2017, the patient is post third TPA treatment which further improve the drainage from the right lung and the patient is feeling well and the chest x -ray shows improvement in the right lower lobe opacity/effusion. We'll continue monitoring the output from the chest tube as long as there is ongoing drainage. On 06/05/2017, the patient inadvertently pulled out his chest tube while trying to climb out of bed last evening. Today's chest x-ray shows continued improvement in the right lower lobe effusion. No plans for reinsertion. On 06/06/2017 the patient mental status has improved. He is oriented 2 now. He denies any worsening shortness of breath, cough or congestion. On 06/07/2017 the patient is seen again today. He continues to improve mentally but not necessarily aware of his situation. 2 acute STEMI status post emergent cardiac catheterization and stenting of the LAD 3 acute infectious pneumococcal pericarditis, with a pericardial effusion/ infected pericardial fluid with cultures growing strep pneumo, status post percutaneous drainage of the pericardial effusion at the bedside and the patient has a triple lumen catheter placed within the pericardium. The output from the pericardial tube is minimal at this point, and the tube was pulled out yesterday by CT surgery. Echocardiogram today 06/05/2017 reveals small pericardial effusion. 4 alcoholism 5 delirium tremens , active 6 Maculopapular rash, resolved with Solu-Medrol 7 paroxysmal atrial fibrillation, current rhythm is sinus on beta blockers Plan: The patient was seen and evaluated by Dr. Angel. We'll continue with his current medications. Discharge planning is in place. We'll continue to follow.
--- NOTE | 2017-06-07 14:38 | P.PN ---
Subjective This patient was admitted with evidence of pericarditis ischemic syndrome. Patient had a stent placement. Subsequently, patient had a pericardial tube placement for drainage of the pericardial effusion. Patient also developed pneumonia and delirium tremens related to alcohol withdrawal. Patient quite confused, is aware of the year and the month. Lying down in bed, sitter at bedside. Patient is walking with help. Hemodynamically stable. No recurrence of atrial fibrillation. Repeat echocardiogram with Doppler study revealed a small pericardial effusion. Overall, patient seemed to be relatively stable. 06/06/2017 Patient seen and examined this morning, much more alert and oriented today. Did complain of an episode of chest discomfort that worsened with deep breathing , likely secondary to pericarditis. Blood pressure 118/70 with a heart rate in the 90s. White blood cell count 17,000. 06/07/2017 Patient seen and examined today, denies any chest pain, hemodynamically stable. Potassium 3.3 which is being replaced. Objective - Vital Signs Vital signs: Vital Signs Temp 99.0 F 06/07/17 11:53 Pulse 101 H 06/07/17 11:53 Resp 18 06/07/17 11:53 BP 112/70 06/07/17 11:53 Pulse Ox 95 06/07/17 11:53 Intake & Output 06/06/17 06/07/17 06/07/17 18:59 06:59 18:59 Intake Total 140 410 80 Balance 140 410 80 Weight 83 kg 92.2 kg Intake: IV 140 50 80 NS 40 50 80 cefTRIAXone 2,000 mg In 100 Sodium Chloride 0.9% 100 ml @ 100 mls/hr IVPB Q24HR [facility] Rx#:[id number] Oral 360 Other: Voiding Method Urinal # Voids 2 # Bowel Movements 1 ABP, PAP, CO, CI - Last Documented Arterial Blood Pressure 136/66 - Exam GENERAL EXAM: Patient is sleepy and sluggish but arousable HEENT: Normocephalic. Normal reaction of pupils, equal size, normal range of extraocular motion. No erythema or exudates in the throat. NECK: No masses, no nuchal rigidity. CHEST: No chest wall deformity. LUNGS: Equal air entry with no crackles or wheeze. HEART: S1 and S2 normal with no audible mumurs or gallops. Regular rhythm, femorals equal on both sides.. ABDOMEN: No hepatosplenomegaly, normal bowel sounds, no guarding or rigidity. SKIN: No rashes CENTRAL NERVOUS SYSTEM: Deferred EXTREMITIES: No cyanosis, clubbing or edema. - Labs CBC & Chem 7: 06/07/17 06:38 06/07/17 12:15 Labs: Abnormal Lab Results - Last 24 Hours (Table) 06/06/17 06/06/17 06/07/17 Range/Units 16:33 21:19 06:26 WBC (3.8-10.6) k/uL RBC (4.30-5.90) m/uL Hgb (13.0-17.5) gm/dL Hct (39.0-53.0) % Neutrophils # (1.3-7.7) k/uL Sodium (137-145) mmol/L Potassium (3.5-5.1) mmol/L Creatinine (0.66-1.25) mg/dL POC Glucose (mg/dL) 107 H 134 H 111 H (75-99) mg/dL Calcium (8.4-10.2) mg/dL 06/07/17 06/07/17 06/07/17 Range/Units 06:35 06:38 11:35 WBC 17.1 H (3.8-10.6) k/uL RBC 3.96 L (4.30-5.90) m/uL Hgb 12.6 L (13.0-17.5) gm/dL Hct 37.0 L (39.0-53.0) % Neutrophils # 14.8 H (1.3-7.7) k/uL Sodium 136 L (137-145) mmol/L Potassium 3.3 L (3.5-5.1) mmol/L Creatinine 0.55 L (0.66-1.25) mg/dL POC Glucose (mg/dL) 124 H (75-99) mg/dL Calcium 8.0 L (8.4-10.2) mg/dL 06/07/17 Range/Units 12:15 WBC (3.8-10.6) k/uL RBC (4.30-5.90) m/uL Hgb (13.0-17.5) gm/dL Hct (39.0-53.0) % Neutrophils # (1.3-7.7) k/uL Sodium (137-145) mmol/L Potassium 3.4 L (3.5-5.1) mmol/L Creatinine (0.66-1.25) mg/dL POC Glucose (mg/dL) (75-99) mg/dL Calcium (8.4-10.2) mg/dL Assessment and Plan (1) Pericarditis Status: Acute (2) Alcoholism Status: Acute (3) COPD (chronic obstructive pulmonary disease) Status: Acute (4) Nicotine dependence Status: Acute (5) Paroxysmal atrial fibrillation Status: Acute (6) Pericardial effusion Status: Acute Plan: From cardiology's perspective, we'll continue patient on his current medications. Replace potassium. We will follow this patient with you now on an as-needed basis only, please do hesitate to call with any questions. DNP note has been reviewed, I agree with a documented findings and plan of care. Patient was seen and examined.
[2017-06-07 17:06] LABS: Glucose,Whole Blood 106 mg/dL (75-99)
[2017-06-07] MEDS: THIAMINE 100 MG TAB PO SCH (17:13)
[2017-06-07] MEDS: FOLIC ACID 1 MG TAB PO SCH (17:13)
--- NOTE | 2017-06-07 17:19 | P.PN ---
Subjective Principal diagnosis: Purulent pericarditis This is a 52-year-old male who presented to [facility] emergency center on May 25 due to chest pain that had been going on for 5 days and worsening. Patient was found to have ST elevation and was taken to the cath lab technologist with Dr. GRICELDA Gonzales and found to have a 60-70% lesion in the LAD and was subsequently stented. Patient also was found to have a large pericardial effusion and was started on Zosyn and Levaquin and admitted to the intensive care unit. He underwent a bedside echo guided pericardiocentesis and insertion of a pericardial drain done on May 25 with removal of 380 ML's of cloudy tannish fluid. Yesterday he had 225 mL removed in today 125 mL. Chest x -ray showed cardiomegaly, right upper lobe consolidation and bibasilar at infiltrate or atelectasis. He is also followed by Dr. Angel from pulmonary medicine and patient was on BiPAP this morning pulseox was 80% with agitation and confusion and ended up being intubated today. He has presented with a temperature of 101.1, white count of 29.7, sodium 123, blood sugar 314, lactic acid 2.7. Urinalysis was cloudy, protein 1+, blood moderate, leukocyte esterase trace, wbc's 15, clumps rare bacteria rare. Urine culture is in progress and blood cultures status received. Pericardial fluid alphahemolytic strep. Patient has history of drinking 18 beers per day and is on the CIWA protocol. Bronchoscopy was performed. Patient does have a chest tube now in place with decreasing amounts of drainage. Little drainage from the pericardial drain patient has tolerated extubation well, confusion is improved no active hallucinations. Out of ICU no sitter. Certainly much more lucid and is eating his meals Objective - Vital Signs Vital signs: Vital Signs Temp 99.0 F 06/07/17 11:53 Pulse 101 H 06/07/17 16:00 Resp 18 06/07/17 16:00 BP 112/70 06/07/17 11:53 Pulse Ox 95 06/07/17 11:53 Intake & Output 06/06/17 06/07/17 06/07/17 18:59 06:59 18:59 Intake Total 140 410 440 Balance 140 410 440 Weight 83 kg 92.2 kg Intake: IV 140 50 80 NS 40 50 80 cefTRIAXone 2,000 mg In 100 Sodium Chloride 0.9% 100 ml @ 100 mls/hr IVPB Q24HR [facility] Rx#:[id number] Oral 360 360 Other: Voiding Method Urinal Urinal # Voids 2 # Bowel Movements 1 ABP, PAP, CO, CI - Last Documented Arterial Blood Pressure 136/66 - Exam Gen: This is a 52-year-old male. Patient is now extubated but is not a good historian HEENT: Head is atraumatic, normocephalic. Sclerae is anicteric. Dentition is in poor order NECK: Supple. No JVD. No lymphadenopathy. No thyromegaly. LUNGS: Diminished bilaterally with scattered crackles. Decreased breath sounds especially to the right base, chest tube removed with improved aeration right base. HEART: Regular rate and rhythm. No murmur. pericardial tube removed. minimal crunch at times ABDOMEN: Soft. Bowel sounds are present. No masses. No tenderness. EXTREMITIES: No pedal edema. No calf swelling NEUROLOGICAL: The patient remains a poor historian. He follows commands without difficulty. Skin without breakdown prior rash has almost completely resolved - Labs CBC & Chem 7: 06/07/17 06:38 06/07/17 16:26 Labs: Abnormal Lab Results - Last 24 Hours (Table) 06/06/17 06/07/17 06/07/17 Range/Units 21:19 06:26 06:35 WBC (3.8-10.6) k/uL RBC (4.30-5.90) m/uL Hgb (13.0-17.5) gm/dL Hct (39.0-53.0) % Neutrophils # (1.3-7.7) k/uL Sodium 136 L (137-145) mmol/L Potassium 3.3 L (3.5-5.1) mmol/L Creatinine 0.55 L (0.66-1.25) mg/dL POC Glucose (mg/dL) 134 H 111 H (75-99) mg/dL Calcium 8.0 L (8.4-10.2) mg/dL 06/07/17 06/07/17 06/07/17 Range/Units 06:38 11:35 12:15 WBC 17.1 H (3.8-10.6) k/uL RBC 3.96 L (4.30-5.90) m/uL Hgb 12.6 L (13.0-17.5) gm/dL Hct 37.0 L (39.0-53.0) % Neutrophils # 14.8 H (1.3-7.7) k/uL Sodium (137-145) mmol/L Potassium 3.4 L (3.5-5.1) mmol/L Creatinine (0.66-1.25) mg/dL POC Glucose (mg/dL) 124 H (75-99) mg/dL Calcium (8.4-10.2) mg/dL 06/07/17 Range/Units 17:04 WBC (3.8-10.6) k/uL RBC (4.30-5.90) m/uL Hgb (13.0-17.5) gm/dL Hct (39.0-53.0) % Neutrophils # (1.3-7.7) k/uL Sodium (137-145) mmol/L Potassium (3.5-5.1) mmol/L Creatinine (0.66-1.25) mg/dL POC Glucose (mg/dL) 106 H (75-99) mg/dL Calcium (8.4-10.2) mg/dL Laboratory Results WBC 17.1 k/uL (3.8-10.6) H 06/07/17 06:38 RBC 3.96 m/uL (4.30-5.90) L 06/07/17 06:38 Hgb 12.6 gm/dL (13.0-17.5) L 06/07/17 06:38 Hct 37.0 % (39.0-53.0) L 06/07/17 06:38 MCV 93.6 fL (80.0-100.0) 06/07/17 06:38 MCH 31.9 pg (25.0-35.0) 06/07/17 06:38 MCHC 34.0 g/dL (31.0-37.0) 06/07/17 06:38 RDW 12.9 % (11.5-15.5) 06/07/17 06:38 Plt Count 364 k/uL (150-450) 06/07/17 06:38 Neutrophils % 86 % 06/07/17 06:38 Neutrophils % (Manual) 54.5 % 05/26/17 05:35 Band Neutrophils % 39.0 % 05/26/17 05:35 Lymphocytes % 9 % 06/07/17 06:38 Lymphocytes % (Manual) 4.5 % 05/26/17 05:35 Monocytes % 3 % 06/07/17 06:38 Monocytes % (Manual) 1.5 % 05/26/17 05:35 Eosinophils % 0 % 06/07/17 06:38 Basophils % 0 % 06/07/17 06:38 Metamyelocytes % 0.5 % 05/26/17 05:35 Neutrophils # 14.8 k/uL (1.3-7.7) H 06/07/17 06:38 Neutrophils # (Manual) 20.4 k/uL (1.3-7.7) H 05/26/17 05:35 Lymphocytes # 1.6 k/uL (1.0-4.8) 06/07/17 06:38 Lymphocytes # (Manual) 1.0 k/uL (1.0-4.8) 05/26/17 05:35 Monocytes # 0.6 k/uL (0-1.0) 06/07/17 06:38 Monocytes # (Manual) 0.3 k/uL (0-1.0) 05/26/17 05:35 Eosinophils # 0.0 k/uL (0-0.7) 06/07/17 06:38 Basophils # 0.0 k/uL (0-0.2) 06/07/17 06:38 Nucleated RBCs 0 /100 WBC (0-0) 05/26/17 05:35 Manual Slide Review Performed 05/25/17 15:00 Toxic Granulation Present 05/26/17 05:35 RBC Morphology Normal 05/25/17 15:00 Polychromasia Present 05/26/17 05:35 Poikilocytosis (manual Present 05/26/17 05:35 Anisocytosis (manual) Present 05/26/17 05:35 PT 12.1 sec (9.0-12.0) H 05/28/17 10:45 INR 1.2 (<1.2) H 05/28/17 10:45 APTT 25.9 sec (22.0-30.0) 05/25/17 15:00 D-Dimer 1.32 mg/L FEU (<0.60) H 05/25/17 15:00 Sample Site charlene 05/30/17 05:16 ABG pH 7.49 (7.35-7.45) H 05/30/17 05:16 ABG pCO2 34 mmHg (35-45) L 05/30/17 05:16 ABG pO2 85 mmHg (83-108) 05/30/17 05:16 ABG HCO3 26 mmol/L (21-25) H 05/30/17 05:16 ABG Total CO2 27 mmol/L (19-24) H 05/30/17 05:16 ABG O2 Saturation 97.0 % (94-97) 05/30/17 05:16 ABG Base Excess 2.4 mmol/L 05/30/17 05:16 ABG Hematocrit 48 % (34.0-46.0) H 05/25/17 16:00 FiO2 40 % 05/30/17 05:16 Sodium 136 mmol/L (137-145) L 06/07/17 06:35 Potassium 4.0 mmol/L (3.5-5.1) 06/07/17 16:26 Chloride 105 mmol/L (98-107) 06/07/17 06:35 Carbon Dioxide 26 mmol/L (22-30) 06/07/17 06:35 Anion Gap 5 mmol/L 06/07/17 06:35 BUN 10 mg/dL (9-20) 06/07/17 06:35 Creatinine 0.55 mg/dL (0.66-1.25) L 06/07/17 06:35 Est GFR (MDRD) Af Amer >60 (>60 ml/min/1.73 sqM) 06/07/17 06:35 Est GFR (MDRD) Non-Af >60 (>60 ml/min/1.73 sqM) 06/07/17 06:35 Glucose 99 mg/dL (74-99) 06/07/17 06:35 POC Glucose (mg/dL) 106 mg/dL (75-99) H 06/07/17 17:04 POC [facility] 06/07/[facility] 17:[address] Glu mg/dL 105 mg/dL 05/25/17 15:00 Hemoglobin A1c 5.3 % (4.2-6.1) 05/25/17 15:00 Lactic Ac Sepsis Rflx Y 05/26/17 06:08 Plasma Lactic Acid Rob 2.7 mmol/L (0.7-2.0) H* 05/26/17 09:47 Calcium 8.0 mg/dL (8.4-10.2) L 06/07/17 06:35 Phosphorus 2.7 mg/dL (2.5-4.5) 06/07/17 06:35 Magnesium 1.7 mg/dL (1.6-2.3) 06/07/17 06:35 Total Bilirubin 2.2 mg/dL (0.2-1.3) H 05/25/17 15:00 AST 117 U/L (17-59) H 05/25/17 15:00 ALT 72 U/L (21-72) 05/25/17 15:00 Alkaline Phosphatase 75 U/L (38-126) 05/25/17 15:00 Lactate Dehydrogenase 861 U/L (313-618) H 05/28/17 04:30 Total Creatine Kinase 29 U/L (55-170) L 05/25/17 15:00 CK-MB (CK-2) 0.6 ng/mL (0.0-2.4) 05/25/17 15:00 CK-MB (CK-2) Rel Index 2.1 05/25/17 15:00 Troponin I 0.030 ng/mL (0.000-0.034) 05/26/17 05:35 Total Protein 4.8 g/dL (6.3-8.2) L 05/28/17 04:30 Albumin 3.2 g/dL (3.5-5.0) L 05/25/17 15:00 Urine Color Yellow 05/26/17 05:00 Urine Appearance Cloudy (Clear) 05/26/17 05:00 Urine pH 5.5 (5.0-8.0) 05/26/17 05:00 Ur Specific [place] 1.030 (1.001-1.035) 05/26/17 05:00 Urine Protein 1+ (Negative) H 05/26/17 05:00 Urine Glucose (UA) Negative (Negative) 05/26/17 05:00 Urine Ketones Negative (Negative) 05/26/17 05:00 Urine Blood Moderate (Negative) H 05/26/17 05:00 Urine Nitrite Negative (Negative) 05/26/17 05:00 Urine Bilirubin Negative (Negative) 05/26/17 05:00 Urine Urobilinogen 2.0 mg/dL (<2.0) 05/26/17 05:00 Ur Leukocyte Esterase Trace (Negative) H 05/26/17 05:00 Urine RBC 10 /hpf (0-5) H 05/26/17 05:00 Urine WBC 15 /hpf (0-5) H 05/26/17 05:00 Urine WBC Clumps Rare /hpf (None) H 05/26/17 05:00 Ur Squamous Epith Cells 1 /hpf (0-4) 05/26/17 05:00 Amorphous Sediment Rare /hpf (None) H 05/26/17 05:00 Urine Bacteria Rare /hpf (None) H 05/26/17 05:00 Urine Mucus Rare /hpf (None) H 05/26/17 05:00 Fluid Source Pleural 05/28/17 12:55 Fluid Color Yellow 05/25/17 18:20 Fluid Appearance Hazy 05/28/17 12:55 Fluid RBC 440 /uL 05/28/17 12:55 Fluid Nucleated Cells 170 /uL 05/28/17 12:55 Fluid Polynuclear WBCs 83 % 05/28/17 12:55 Fluid Mononuclear WBCs 17 % 05/28/17 12:55 Body Fluid Glucose Source Not Reportable 05/28/17 12:55 Fluid Glucose <4 mg/dL 05/28/17 12:55 Body Fluid Protein Source Not Reportable 05/28/17 12:55 Fluid Total Protein 4300 mg/dL 05/28/17 12:55 Body Fluid LDH Source Not Reportable 05/28/17 12:55 Fluid LDH 3388 U/L 05/28/17 12:55 Fluid Comment 05/25/17 18:20 Vancomycin Trough 24.6 ug/mL 05/28/17 04:30 C. difficile (EIA) Intrp Negative (Negative) 05/31/17 04:20 Virus Source See Below 05/27/17 11:50 Viral Test See Below 05/27/17 11:50 Virus Analysis Interp See Below 05/27/17 11:50 Blood Type O Positive 05/25/17 15:00 Blood Type Recheck No 05/25/17 15:00 Antibody Screen NEGATIVE 05/25/17 15:00 Transfuse Plasma 05/25/2017 05/25/17 15:00 Spec Expiration Date 05/28/2017 - 2300 05/25/17 15:00 Microbiology 05/27/17 11:50 Bronchial Washings - Random Acid Fast Bacilli Smear - Final 05/27/17 11:50 Bronchial Washings - Random Acid Fast Bacilli Culture - Preliminary 05/25/17 18:20 Pericardial Fluid Acid Fast Bacilli Smear - Final 05/25/17 18:20 Pericardial Fluid Acid Fast Bacilli Culture - Preliminary 05/27/17 11:50 Bronchial Washings - Random Fungal Culture - Preliminary Rachel albicans 05/28/17 12:55 Pleural Fluid Anaerobic Culture - Final 05/26/17 09:47 Blood Blood Culture - Final No Growth after 144 hours 05/26/17 09:47 Blood Blood Culture - Final No Growth after 144 hours 05/28/17 12:55 Pleural Fluid Gram Stain - Final 05/28/17 12:55 Pleural Fluid Body Fluid Culture - Final 05/25/17 18:20 Pericardial Fluid Anaerobic Culture - Final 05/27/17 11:50 Bronchial Washings - Random Gram Stain - Final 05/27/17 11:50 Bronchial Washings - Random Bronchial Washings Culture - Final Rachel albicans 05/25/17 18:20 Pericardial Fluid Gram Stain - Final 05/25/17 18:20 Pericardial Fluid Body Fluid Culture - Final Streptococcus pneumoniae 05/26/17 05:00 Urine,Catheterized Urine Culture - Final Assessment and Plan (1) Alcoholism Status: Acute (2) Acute hypoxemic respiratory failure Status: Acute (3) Purulent pericarditis Narrative/Plan: 52-year-old gentleman who has a history of alcoholism who has radiological evidence of pneumonia. It is highly likely that the pneumonia resulted in the purulent pericarditis via direct extension. alpha streptococci have been isolated. It has been noted to be Streptococcus pneumoniae that is not drug- resistant. Antibiotic therapy with Rocephin and vancomycin is being utilized at this time pending further data. Blood cultures negative so far. As noted the patient's alcohol withdrawal is being treated, and his respiratory failure hopefully respond well to antibiotic therapy, treatment of the purulent pericarditis and underlying sepsis. The extensive leukocytosis is directly related to the purulent pericarditis and pneumonia, and with this current underlying status of alcoholism is a good prognostic sign and he was able to generate a leukocytosis. Chest tube is been placed in further cultures are pending. Blood cultures negative so far. Overall there is been improvement of his status. He is now extubated and doing well off of the ventilator. He is comfortable and neurologically not agitated. Pericardial drain removed. Chest tube also removed. As noted cultures have Streptococcus pneumoniae and doing well with current antibiotic therapy of Rocephin. Will need several weeks of intravenous antibiotic therapy. Received a couple doses of Solu-Medrol and has had a increase of his leukocytosis. Overall he is improved. Status: Acute
[2017-06-07 20:25] LABS: Glucose,Whole Blood 117 mg/dL (75-99)
[2017-06-07] MEDS: QUEtiapine 50 MG TAB PO SCH (21:45)
[2017-06-07] MEDS: MORPHINE SULFATE 2 MG/ML SYRINGE IVP PRN (21:45)
[2017-06-07] MEDS: amLODIPine 5 MG TAB PO SCH (21:45)
[2017-06-07] MEDS: ACETAMINOPHEN TAB 500 MG TAB PO PRN (23:34)
--- NOTE | 2017-06-08 01:07 | XR ---
EXAM: XR Chest, 1 View CLINICAL HISTORY: Fever and shortness of breath TECHNIQUE: Frontal view of the chest. COMPARISON: Chest x-ray dated 05/30/2017 at 6:39 AM FINDINGS: Lungs: Bibasilar opacities likely representing pleural effusions with adjacent atelectasis. Pleural space: No pneumothorax. Heart: Moderate enlargement of cardiomediastinal silhouette. Mediastinum: See above. Bones/joints: Unremarkable. Tubes, lines and devices: Left subclavian central venous catheter with tip in the distal vein/SVC. IMPRESSION: Bibasilar opacities likely representing pleural effusions with adjacent atelectasis. Pneumonia is not excluded.
[2017-06-08 03:28] LABS: Glucose,Whole Blood 113 mg/dL (75-99)
[2017-06-08] MEDS: IPRATROPIUM-ALBUTEROL 3 ML NEB INHALATION SCH ×4 (07:01→20:14)
[2017-06-08] MEDS: ASPIRIN 81 MG CHEW PO SCH (07:44)
[2017-06-08] MEDS: CLOPIDOGREL 75 MG TAB PO SCH (07:44)
[2017-06-08] MEDS: ATORVASTATIN 40 MG TAB PO SCH (07:44)
[2017-06-08] MEDS: METOPROLOL TARTRATE 50 MG TAB PO SCH ×2 (07:44→20:20)
[2017-06-08] MEDS: ENOXAPARIN 40 MG/0.4 ML SYRINGE SQ SCH (07:45)
[2017-06-08] MEDS: PANTOPRAZOLE 40 MG TABLET PO SCH (07:45)
[2017-06-08] MEDS: LORazepam 2 MG/ML SYRINGE IV PRN (07:54)
[2017-06-08 07:55] LABS: Glucose,Whole Blood 109 mg/dL (75-99)
[2017-06-08] MEDS: INSULIN LISPRO (humaLOG) 300 UNIT/3 ML VIAL SQ SCH ×4 (07:58→21:12)
[2017-06-08] MEDS: cefTRIAXone 2,000 MG in SODIUM CHLORIDE 0.9% 100 ML IVPB SCH (09:26)
[2017-06-08 11:38] LABS: Glucose,Whole Blood 109 mg/dL (75-99)
[2017-06-08] MEDS: FOLIC ACID 1 MG TAB PO SCH (12:53)
[2017-06-08] MEDS: THIAMINE 100 MG TAB PO SCH (12:53)
--- NOTE | 2017-06-08 13:47 | P.PN ---
Subjective 52-year-old gentleman, known history of alcoholism, presented to the hospital because of increased chest pain. He was found to have ST segment elevation myocardial infarction. The patient was taken to the [facility] on an emergent basis and he had stents placed into his LAD for a 70% LAD lesion. He was also found to have a large pericardial effusion and leukocytosis. He was seen by surgery and he underwent a bedside pericardiocentesis and total of 380 mL of fluid was drained from the pericardial space. Initial cultures are growing up hemolytic strep and the patient is or the being covered with a combination of Rocephin and vancomycin. Note that his initial chest x-ray on admission showed a right upper lobe consolidation and subsequent x-ray showed diffuse lateral pulmonary infiltrates typical of an underlying ARDS. The patient also went into delirium tremens. Overnight she had become quite a bit agitated and he had required a total of 8 mg of Ativan throughout the night. This morning, the patient is lethargic, and 2. restraints, confused and sometimes agitated. He is on a BiPAP at a pressure of 12/5 cm of water with an FiO2 of 100%. Earlier he was on a percent and he had to be brought up to 100% to maintain a saturation above 90%. He has good pulses in all 4 extremities. He is producing approximately 50 mL an hour. He is on normal saline at the rate of 75 mL an hour. White cell count remains elevated at 28.6. He is on no pressors for now. No significant electrode abnormalities. No acidosis. Echocardiogram that was done earlier showed a preserved LV function. The patient has a pericardial tube in place and total amount of output that was drained this morning is around 125, brownish to yellowish pericardial fluid. Note that the fluid analysis was done earlier showed elevated LDH and protein. White cell count is also elevated at 44,000 with 92% on a nuclear white cells. On 05/28/2017 the patient remains intubated on a mechanical ventilator. He is sedated with Diprivan and is calm and comfortable. Spiked a high rate of the prevent, the patient is still easily arousable. Hemodynamically stable on no pressors. He remains on a mechanical ventilator on assist control mode at the rate of 24, tidal volume 500, FiO2 of 50% and a PEEP of 8. The blood gases from this morning showed a pH of 7.42 with a pCO2 of 36 and pO2 of 69. I reviewed the chest x-ray from today that shows no interval change and there is diffuse breath and pulmonary infiltrates and ET tube is in a good location. The CAT scan of the chest that was done yesterday showed development of a loculated pleural effusion on the right more so a large pocket sitting in the posterior aspect of the right hemithorax which I think it's accessible for percutaneous drainage and for that reason I discussed this case with interventional radiology and will going to proceed with this procedure despite the fact that the patient on a combination of aspirin and Plavix. I think the benefits of this procedure will outweigh the risk. Meanwhile a bronchoscopy and the bronchioloalveolar lavage was done yesterday and the cultures are all negative thus far. The patient's pericardial effusion culture showed strep pneumonia which is sensitive to all antibiotics and the patient complications on a combination of vancomycin and Rocephin. Vancomycin may be ultimately discontinued and this will be discussed further with infectious disease. He will be started on tube feeds today. He is otherwise doing well and there has been no other issues over the past 24 hours. On 05/29/2017 the patient is being seen in the follow-up. The patient remains intubated on a mechanical ventilator and sedated and calm and comfortable. As mentioned earlier, there was a concern of a empyema. Based on that I talked interventional radiology and were able to drain the loculated pleural fluid on the right. The fluid was nonpurulent. The white cell count within the fluid was nonelevated and the cultures still pending for now. The procedure was not the bedside successfully a total of 600 mL of fluid was aspirated from the right lung. At this point in time the right-sided chest tube is connected to Pleur-evac and is not draining actively. The chest x-ray however shows marked improvement in the pneumonia and in the loculated pleural fluid that was seen on the right. ET tube is sitting high in the trachea. The patient is an assist -control mode at the rate of 24, tidal volume of 500, FiO2 of 50% and a PEEP of 8. Morning blood gases showed a pH of 7.41 with a pCO2 of 38 and pO2 of 152 and there has been marked improvement in his oxygenation. The only positive cultures from his pericardial fluid which is strep pneumo and the patient on high-dose Rocephin. Vancomycin was discontinued by infectious disease as the strep pneumo has been sensitive. He was dynamically stable. Tolerating his tube feeds. Was given a sedation holiday this morning and he was able to wake up and follow commands appropriately. The pericardial tube is not draining at this point. On 05/30/2017 I'm seeing this patient in follow-up. The patient is doing well. I reviewed the chest x-ray and there is some residual infiltration of however they x-ray findings have essentially improved and the patient is improving in terms of his pneumonia. The right-sided pleural effusion was also drained percutaneously with a smaller chest tube by interventional radiology. The fluid cultures of been all negative. The blood culture been negative. The pericardial effusion was positive for Streptococcus pneumonia. The patient is on IV Rocephin 2 g every 24 hours. The patient has a pericardial catheter in place and yesterday the drainage was only 20-30 mL, none for today. This morning, the patient was taken off sedation. He woke up appropriately. Unable to complete the. He has breathing trial as the patient was becoming more and more agitated and anxious and his blood pressure was fluctuating and he was becoming tachypneic. At that point I noted the patient had adequate strength an adequate gag and cough reflex. He is at which her breathing index was also reasonable. At that point I decide to extubate this patient without giving him is participating trial. He extubated successfully and currently is on 5 L oxygen by nasal cannula. This was subsequently weaned down to 3 L. Hemodynamically stable. No chest pain. No other significant issues overnight. The patient is somewhat lethargic over he is still recovering from his underlying sedation. No tremors. No agitation. No signs of delirium tremens at this point. On 05/31/2017 I'm seeing this patient in follow-up. As mentioned earlier, the patient was extubated yesterday without any major difficulties. At the later stage the patient started having symptoms of delirium. He was on and off confused throughout the night and he sees a total of 6 mg of IV Ativan for delirium tremens. This morning, he is not oriented to time and place. His multiple of her extremities. No headache. The antibiotics are still unchanged and the patient is on high dose Rocephin regarding pneumococcal pneumonia and acute pneumococcal pericarditis. The pericardial catheter has drained 80 mL yesterday and there is no active drainage from the right-sided chest tube. Chest x-ray still showing breath and pulmonary infiltrates although improved compared to the initial chest x-ray from May 28. The patient is resting comfortably in bed. No signs of respiratory distress. Active issues for now remains his altered mentation and the delirium tremens. Hemodynamically stable. On 06/01/2017 the patient remains extubated. The patient remains in the intensive care unit. Mentation is still impaired and the patient is still delirious and he is not fully recovered from his delirium tremens. He is not agitated at this point. He had received a total of 8 mg of Ativan since yesterday evening. He is breathing comfortably in bed. There pericardial tube has drained 80 mL today and I reviewed the CAT scan of the chest that showed a loculated right-sided pleural effusion measuring 9.5 x 4.6 x 6.4 cm in size and this is obviously smaller compared to the previous measurement. Additional smaller loculation was also seen. Tiny free flowing effusion is also present bilaterally. Several lymph nodes within the mediastinum largest being 13 mm in size and there is not a 14 mm right paratracheal lymph node also. The patient made on IV Rocephin however today he has developed a maculopapular rash over the anterior chest and back area which could be potentially an ALLERGIC reaction. Cephalosporin ALLERGY needs to be considered. Hemodynamically stable. Producing adequate amount of urine output. He is not eating much over his swallowing is medication. White cell count is at 12.3. The rest of the electrodes are within normal limits. No new cultures are available at this point. On 06/02/2017 the patient remains extubated. The patient is still confused although he seems to be much less agitated and not requiring as much Ativan. He received only 2 mg of Ativan yesterday. Much more responsive today. Not diaphoretic and resting comfortably in bed. Oxygen has been taken off and his pulse ox on room air is 95%. Note that ultimately placed was applied to these chest tube yesterday and there was a drainage of 300 mL of pleural fluid post unclamping of the chest tube. The pericardial catheter has been removed. The patient is on IV Rocephin. His rash has subsided. He is on IV Solu-Medrol. Hemodynamically stable. White cell count remains low. He remains afebrile. He is not eating as much over he can swallow his pills. He went into a episode of atrial fibrillation yesterday and he quite Cardizem bolus and drip and currently is back to normal sinus rhythm and he is on Toprol 25 mg by mouth 3 times a day. Physical therapy will be involved in his case today. On 06/03/2017, the activation remains ongoing delirium tremens. Based on his increased agitation and restlessness overnight the patient was given a total of 8 mg of Ativan. This morning he was more so sleepy. His neurologic exam was nonfocal. A CAT scan of the brain was done that showed no acute abnormalities. As mentioned earlier, he received 2 alteplase treatment to his right lung so the small bore chest tube and the patient had approximately 300 mL of drainage following each application. This morning, I repeated a CAT scan of the chest and patient is found to have loculated pleural collection which has increased in size despite the pigtail catheter and there is also other loculated pleural fluid collection in the right lung with some increasing right lower lobe atelectasis. He remains afebrile. He is on IV Rocephin. Hemodynamically stable. No nausea. No vomiting. No abdominal pain. Oral intake remains low. He is able to swallow his pills. We'll discuss his findings with cardiothoracic surgery. It's reasonable to continue the out of place treatment for now in view of the worsening in loculation along the right chest. On 06/04/2017 the patient is able to sit up on a chair. Profoundly weak yet more interactive and less confused compared to yesterday. As mentioned earlier the CAT scan of the brain came back negative. Neurologic exam remains nonfocal. Another TPA treatment was given to this patient locally through his chest tube and this helped with the increased drainage and the patient put out more than 1000 MLS of pleural fluid following the administration of TPA. The patient is not having any respiratory distress at this point. The chest x-ray shows improvement in the volume status and much improvement in the right lower lobe opacity. Not having any chest pain. No fever. He is on IV Rocephin. CT surgeries on the case. Pericardial tube has been removed earlier as mentioned. The patient is seen again today 06/05/2017 in follow-up on the selective care unit. He is a little more awake and alert. Still somewhat disoriented to place and time. Apparently the chest tube was accidentally removed and the patient was trying to get out of bed. Today's chest x-ray does show some bibasilar atelectasis with continued improvement in the right-sided effusion. Echocardiogram gram today revealed a small generalized pericardial effusion. Ejection fraction 55-60%. He has been hemodynamically stable. Maintaining good O2 saturations in the 90s on room air. Afebrile. White count 12.1. Hemoglobin 12.3. He remains on ceftriaxone. The patient is seen again today 06/06/2017 in follow-up on the selective care unit. He is more awake and alert again today compared to yesterday. He does know the month and year now. He is cooperative. He denies any worsening shortness of breath, cough or congestion. He does have some discomfort on inhalation. His chest x-ray is stable. He is maintaining good O2 saturations in the mid 90s on room air. He is currently afebrile. He remains on ceftriaxone. He remains on the CIWA protocol. The patient is seen again today 06/07/2017 in follow-up on the selective care unit. He continues to be more awake, alert and oriented daily. He is calm and cooperative. He currently denies any shortness of breath, cough or congestion. No chest pain. No pain on inhalation. He is maintaining good O2 saturations in the 90s on room air. Slightly tachycardic. Afebrile. The patient is seen again today 06/08/2017 in follow-up on the regular medical floor. He is awake and alert in no acute distress. He denies any worsening shortness of breath, cough or congestion. No chest pain, palpitations lightheadedness or dizziness. He is maintaining good O2 saturations in the 90s on room air. He's been afebrile. He's been up ambulating with assistance. Objective - Vital Signs Vital signs: Vital Signs Temp 98.3 F 06/08/17 07:00 Pulse 92 06/08/17 10:19 Resp 17 06/08/17 08:00 BP 122/72 06/08/17 07:00 Pulse Ox 96 06/08/17 07:01 Intake & Output 06/07/17 06/08/17 06/08/17 18:59 06:59 18:59 Intake Total 440 510 240 Output Total 300 Balance 440 510 -60 Weight 92.6 kg Intake: IV 80 60 NS 80 60 Oral 360 450 240 Output: Urine 300 Other: Voiding Method Urinal Urinal Urinal # Voids 2 1 ABP, PAP, CO, CI - Last Documented Arterial Blood Pressure 136/66 - Exam Head exam was generally normal. There was no scleral icterus or corneal arcus. Mucous membranes were moist..Neck was supple and without jugular venous distension, thyromegaly, or carotid bruits. Carotids were easily palpable bilaterally. There was no adenopathy. Head exam was generally normal. There was no scleral icterus or corneal arcus. Mucous membranes were moist. Lungs sounds are diminished bilaterally. Breath sounds are equal and symmetrical however. No wheezes. Heart sounds are regular, positive S1-S2 and there is a friction rub can be appreciated over the anterior chest wall. The abdomen was soft, non- tender, and without masses, organomegaly, or appreciable enlargement of the abdominal aorta. Examination of the extremities revealed easily palpable radial , femoral and pedal pulses. There was no cyanosis, clubbing or edema. Neurologically , the patient is moving all 4 extremities. Periodic confusion is improving. - Labs CBC & Chem 7: 06/07/17 06:38 06/07/17 16:26 Labs: Abnormal Lab Results - Last 24 Hours (Table) 06/07/17 06/07/17 06/08/17 Range/Units 17:04 20:04 03:24 POC Glucose (mg/dL) 106 H 117 H 113 H (75-99) mg/dL 06/08/17 06/08/17 Range/Units 07:29 11:36 POC Glucose (mg/dL) 109 H 109 H (75-99) mg/dL Assessment and Plan Plan: Assessment 1 acute hypoxic respiratory failure with development of diffuse breath and pulmonary infiltrates. CAT scan of the chest was reviewed and the findings are consistent with diffuse bilateral pneumonia with loculated right-sided pleural effusion with possibly empyema versus a complicated loculated parapneumonic fluids. A small bore chest tube was inserted to the right hemithorax and total of 600 mL the pleural fluid was aspirated. This was positive for Streptococcus pneumoniae On 05/30/2017, the patient was taken off sedation and he demonstrated adequate ability to maintain his airways patent and he had adequate neurologic function with the patient woke up and he was following commands moving all 4 extremities without any limitation. At that point the decision was to extubate this patient and this was a successful extubation. Currently is on 3 L of oxygen by nasal cannula. On 05/31/2017, the patient remains extubated. A repeat CAT scan of the chest will be obtained to follow-up on the loculated pleural effusion and decided the patient may benefit from an intrapleural TPA. We'll keep the pericardial catheter in place as long as there is still on and off drainage as the patient has drained approximately 80 mL yesterday. The patient is extubated. The patient on IV Rocephin. On 06/01/2017, the CAT scan of the chest was reviewed and the smaller chest tube is still in a good location however it is not draining a lot. Based on this, alteplase will be infused to enhance further drainage from the loculated right-sided pleural effusion. On 06/02/2017 chest x-ray findings are essentially stable. Nevertheless, there has been improved drainage from his right lung and I would consider repeating the alteplase today to improve the drainage and hopefully evacuate that the loculated right-sided pleural effusion. As such the alteplase will be repeated today and we'll monitor the output and repeat chest x-ray in the morning. On 06/03/2017, the patient shows increased loculation and atelectasis of the right lung and the patient has already received 2 alteplase treatment with subsequent worsening. He is an IV Rocephin. No signs of sepsis. Not in acute respiratory distress at this point. On 06/04/2017, the patient is post third TPA treatment which further improve the drainage from the right lung and the patient is feeling well and the chest x -ray shows improvement in the right lower lobe opacity/effusion. We'll continue monitoring the output from the chest tube as long as there is ongoing drainage. On 06/05/2017, the patient inadvertently pulled out his chest tube while trying to climb out of bed last evening. Today's chest x-ray shows continued improvement in the right lower lobe effusion. No plans for reinsertion. On 06/06/2017 the patient mental status has improved. He is oriented 2 now. He denies any worsening shortness of breath, cough or congestion. On 06/07/2017 the patient is seen again today. He continues to improve mentally but not necessarily aware of his situation. 2 acute STEMI status post emergent cardiac catheterization and stenting of the LAD 3 acute infectious pneumococcal pericarditis, with a pericardial effusion/ infected pericardial fluid with cultures growing strep pneumo, status post percutaneous drainage of the pericardial effusion at the bedside and the patient has a triple lumen catheter placed within the pericardium. The output from the pericardial tube is minimal at this point, and the tube was pulled out yesterday by CT surgery. Echocardiogram today 06/05/2017 reveals small pericardial effusion. 4 alcoholism 5 delirium tremens , active 6 Maculopapular rash, resolved with Solu-Medrol 7 paroxysmal atrial fibrillation, current rhythm is sinus on beta blockers Plan: The patient was seen and evaluated by Dr. Card. His chest x-ray was reviewed and it remains stable.. We'll continue with his current medications. He remains on ceftriaxone. ID is on the case as well. Discharge planning is in place. We'll continue to follow.
[2017-06-08 17:36] LABS: Glucose,Whole Blood 102 mg/dL (75-99)
[2017-06-08] MEDS: amLODIPine 5 MG TAB PO SCH (20:19)
[2017-06-08] MEDS: QUEtiapine 50 MG TAB PO SCH (20:20)
[2017-06-08 20:59] LABS: Glucose,Whole Blood 112 mg/dL (75-99)
[2017-06-08] MEDS: MORPHINE SULFATE 2 MG/ML SYRINGE IVP PRN (21:32)
--- NOTE | 2017-06-08 22:15 | P.PN ---
Subjective Mr. Araujo is a 52-year-old male with a past medical history of chronic low back pain, hypertension, alcohol abuse and nicotine dependence coming into the hospital with a chief complaint of chest pain. Patient has history of chronic low back pain and pain of his neck that has been going on but for the past 5 days his symptoms have worsened. Patient's chest pain got worse and he was complaining of 10 out of 10 and so called the EMS. The paramedics did perform an EKG which was suspicious for ST elevation IN. He was given aspirin and nitroglycerin and transferred to [facility] for further evaluation. So the screed person dialysis biomed technician Dr. GRICELDA Gonzales was informed, who did an emergent cardiac catheterization. The patient had a stent placed in his LAD and was also noted to have a large pericardial effusion. So CT surgeon Dr. Multani came in and did a pericardiocentesis. There was 380 mL of fluid drained out. And the patient has been transferred to the ICU for further management and care. On 05/26/17- on the night of 05/26 the patient became very combative and was trying to put all his lines and the pericardial catheter. The patient was placed on a CIWA scale and given 10 mg of Ativan without much improvement in his symptoms. So eventually he was given Haldol after which the patient did calm down. Around 230 ml of fluid was drained from the pericardium. On 05/27/17 - patient was pretty confused, agitated and was on restraints , he was placed on BiPAP and as he was desaturating. Dr. Angel had to intubate the patient around 10 AM today due to impending respiratory failure due to ARDS. Patient also had a bronchoscopy done by Dr. Angel this morning. Patient's pericardial fluid came back to be positive for Streptococcus and he has been started on ceftriaxone. On 05/28/2017- patient still remains intubated. He is on a Levophed drip. Sedated on propofol. Patient had thoracentesisdone today and 400 mL of fluid was drained. And the chest tube was placed. 05/29/2017 Patient failed a weaning trial this morning. With sedation holiday patient is able to move all his 4 extremities and follows simple commands. Cultures from bronchial washings showed no growth for the past 24 hours. On 05/30/17 - pt has been extubated successfully and is saturating above 90 % on 3 lt of nasal canula. on 05/31/17 Pt. is confused but able to answer slowly. resp status improved. still on chest tube and pericardial drain tube. 06/01/17 pt is confused able to answer questions no overnight events reported tries to get out of bed ROS_ deferred due to pt's confusion 06/02/2017 Patient is confused however is able to answer some questions appropriately Denies having any additional problems Overnight the patient had changed into atrial fibrillation is currently maintained on a Cardizem drip 06/03/17 confused no overnight events TPA is infused due to complicated effusion, loculated 06/04/17 still confused however improving no overnight events reported 06/05/17 pt pulled his chest tube no other overnight events 06/06/17 more appropriate no chest pain, arielle, nausea, vomiting, diarrhea 06/07/17 no new complaints no overnight events denies fevers,chills, nausea, cough, ARIELLE - Exam GEN. APPEARANCE: no acute distress. HEAD EXAM: Atraumatic EYE EXAM: No pallor no icterus ENT EXAM: ET tube in place NECK EXAM: No carotid bruit. No thyromegaly RESPIRATORY EXAM: Diminished breath sounds bilaterally. Coarse breath sounds in all lung [place] with crackles. CARDIOVASCULAR EXAM: regular S1 and S2 heard. GI/ABDOMINAL EXAM: Soft nontender. No guarding or rigidity. EXTREMITIES EXAM: No cyanosis, no swelling, no edema. NEUROLOGICAL EXAM: confused SKIN EXAM: warm to touch. No rash. Assessment and Plan Plan: ASSESSMENT Septic shock Streptococcal pericarditis Acute hypoxic respiratory failure secondary to ARDS Pneumonia right upper lobe ST elevation IN status post stenting of LAD Pericardial effusion Alcohol withdrawal delirium tremens Chronic liver disease Chronic alcohol abuse Chronic nicotine dependence New-onset atrial fibrillation with rapid ventricular rate PLAN delirium is noted pt is able to make his own decisions for medical care dc to NH on saturday ABX DVT prophylaxis Objective - Vital Signs Vital signs: Vital Signs Temp 98.7 F 06/08/17 18:11 Pulse 97 06/08/17 18:11 Resp 17 06/08/17 15:16 BP 129/78 06/08/17 20:14 Pulse Ox 92 L 06/08/17 15:00 Intake & Output 06/08/17 06/08/17 06/09/17 06:59 18:59 06:59 Intake Total 510 240 Output Total 300 Balance 510 -60 Weight 92.6 kg Intake: IV 60 NS 60 Oral 450 240 Output: Urine 300 Other: Voiding Method Urinal Urinal # Voids 2 1 ABP, PAP, CO, CI - Last Documented Arterial Blood Pressure 136/66 - Labs CBC & Chem 7: 06/07/17 06:38 06/07/17 16:26 Labs: Abnormal Lab Results - Last 24 Hours (Table) 06/08/17 06/08/17 06/08/17 Range/Units 03:24 07:29 11:36 POC Glucose (mg/dL) 113 H 109 H 109 H (75-99) mg/dL 06/08/17 06/08/17 Range/Units 17:31 20:29 POC Glucose (mg/dL) 102 H 112 H (75-99) mg/dL
[2017-06-09] MEDS: MORPHINE SULFATE 2 MG/ML SYRINGE IVP PRN (01:50)
[2017-06-09] MEDS: IPRATROPIUM-ALBUTEROL 3 ML NEB INHALATION SCH ×4 (07:19→20:18)
[2017-06-09 07:37] LABS: Basophils % (A) 0 %; CH 30.9; CHCM 32.6; Eosinophils # (A) 0.1 k/uL (0-0.7); Eosinophils % (A) 1 %; HCT 35.1 % (39.0-53.0); HDW 2.49; HGB 11.3 gm/dL (13.0-17.5); Luc % (Auto) 2; Lymphocytes # (A) 1.4 k/uL (1.0-4.8); Lymphocytes % (A) 13 %; MCH 30.7 pg (25.0-35.0); MCHC 32.2 g/dL (31.0-37.0); MCV 95.1 fL (80.0-100.0); Mean Platelet Volume 7.5; Monocytes # (A) 0.6 k/uL (0-1.0); Monocytes % (A) 5 %; Neutrophils # (A) 8.3 k/uL (1.3-7.7); Neutrophils % (A) 79 %; RBC 3.69 m/uL (4.30-5.90); WBC 10.5 k/uL (3.8-10.6); WBC (Perox) 10.48
[2017-06-09 07:54] LABS: Glucose,Whole Blood 92 mg/dL (75-99)
[2017-06-09 08:00] LABS: ALT 120 U/L (21-72); AST 55 U/L (17-59); Alkaline Phosphatase 73 U/L (38-126); Anion Gap 8 mmol/L; Blood Urea Nitrogen 7 mg/dL (9-20); Carbon Dioxide 27 mmol/L (22-30); Chloride 103 mmol/L (98-107); Glucose 83 mg/dL (74-99); Non-African American GFR(MDRD) >60 (>60 ml/min/1.73 sqM); Potassium 3.4 mmol/L (3.5-5.1); Sodium 138 mmol/L (137-145); Total Bilirubin 0.7 mg/dL (0.2-1.3); Total Protein 5.4 g/dL (6.3-8.2)
[2017-06-09] MEDS ORDERED: Potassium Replacement Protocol 1 EACH MISC MISCELLANE PRN ×2 (08:38→18:42)
[2017-06-09] MEDS: CLOPIDOGREL 75 MG TAB PO SCH (09:08)
[2017-06-09] MEDS: METOPROLOL TARTRATE 50 MG TAB PO SCH ×3 (09:08→21:19)
[2017-06-09] MEDS: ENOXAPARIN 40 MG/0.4 ML SYRINGE SQ SCH (09:09)
[2017-06-09] MEDS: INSULIN LISPRO (humaLOG) 300 UNIT/3 ML VIAL SQ SCH ×4 (09:09→23:59)
[2017-06-09] MEDS: ATORVASTATIN 40 MG TAB PO SCH (09:09)
[2017-06-09] MEDS: PANTOPRAZOLE 40 MG TABLET PO SCH (09:09)
[2017-06-09] MEDS: ASPIRIN 81 MG CHEW PO SCH (09:09)
[2017-06-09] MEDS: cefTRIAXone 2,000 MG in SODIUM CHLORIDE 0.9% 100 ML IVPB SCH (09:11)
[2017-06-09] MEDS: POTASSIUM CHLORIDE 10 MEQ in WATER FOR INJECTION 1 100ML.BAG IVPB SCH ×2 (10:15→14:27)
[2017-06-09 11:28] LABS: Glucose,Whole Blood 115 mg/dL (75-99)
--- NOTE | 2017-06-09 12:03 | P.PN ---
Subjective Principal diagnosis: Acute hypoxic respiratory failure secondary to pneumonia and bilateral pleural effusions/complicated/parapneumonic. 52-year-old gentleman, known history of alcoholism, presented to the hospital because of increased chest pain. He was found to have ST segment elevation myocardial infarction. The patient was taken to [facility] on an emergent basis and he had stents placed into his LAD for a 70% LAD lesion. He was also found to have a large pericardial effusion and leukocytosis. He was seen by surgery and he underwent a bedside pericardiocentesis and total of 380 mL of fluid was drained from the pericardial space. Initial cultures are growing up hemolytic strep and the patient is or the being covered with a combination of Rocephin and vancomycin. Note that his initial chest x-ray on admission showed a right upper lobe consolidation and subsequent x-ray showed diffuse lateral pulmonary infiltrates typical of an underlying ARDS. The patient also went into delirium tremens. Overnight she had become quite a bit agitated and he had required a total of 8 mg of Ativan throughout the night. This morning, the patient is lethargic, and 2. restraints, confused and sometimes agitated. He is on a BiPAP at a pressure of 12/5 cm of water with an FiO2 of 100%. Earlier he was on a percent and he had to be brought up to 100% to maintain a saturation above 90%. He has good pulses in all 4 extremities. He is producing approximately 50 mL an hour. He is on normal saline at the rate of 75 mL an hour. White cell count remains elevated at 28.6. He is on no pressors for now. No significant electrode abnormalities. No acidosis. Echocardiogram that was done earlier showed a preserved LV function. The patient has a pericardial tube in place and total amount of output that was drained this morning is around 125, brownish to yellowish pericardial fluid. Note that the fluid analysis was done earlier showed elevated LDH and protein. White cell count is also elevated at 44,000 with 92% on a nuclear white cells. On 05/28/2017 the patient remains intubated on a mechanical ventilator. He is sedated with Diprivan and is calm and comfortable. Spiked a high rate of the prevent, the patient is still easily arousable. Hemodynamically stable on no pressors. He remains on a mechanical ventilator on assist control mode at the rate of 24, tidal volume 500, FiO2 of 50% and a PEEP of 8. The blood gases from this morning showed a pH of 7.42 with a pCO2 of 36 and pO2 of 69. I reviewed the chest x-ray from today that shows no interval change and there is diffuse breath and pulmonary infiltrates and ET tube is in a good location. The CAT scan of the chest that was done yesterday showed development of a loculated pleural effusion on the right more so a large pocket sitting in the posterior aspect of the right hemithorax which I think it's accessible for percutaneous drainage and for that reason I discussed this case with interventional radiology and will going to proceed with this procedure despite the fact that the patient on a combination of aspirin and Plavix. I think the benefits of this procedure will outweigh the risk. Meanwhile a bronchoscopy and the bronchioloalveolar lavage was done yesterday and the cultures are all negative thus far. The patient's pericardial effusion culture showed strep pneumonia which is sensitive to all antibiotics and the patient complications on a combination of vancomycin and Rocephin. Vancomycin may be ultimately discontinued and this will be discussed further with infectious disease. He will be started on tube feeds today. He is otherwise doing well and there has been no other issues over the past 24 hours. On 05/29/2017 the patient is being seen in the follow-up. The patient remains intubated on a mechanical ventilator and sedated and calm and comfortable. As mentioned earlier, there was a concern of a empyema. Based on that I talked interventional radiology and were able to drain the loculated pleural fluid on the right. The fluid was nonpurulent. The white cell count within the fluid was nonelevated and the cultures still pending for now. The procedure was not the bedside successfully a total of 600 mL of fluid was aspirated from the right lung. At this point in time the right-sided chest tube is connected to Pleur-evac and is not draining actively. The chest x-ray however shows marked improvement in the pneumonia and in the loculated pleural fluid that was seen on the right. ET tube is sitting high in the trachea. The patient is an assist -control mode at the rate of 24, tidal volume of 500, FiO2 of 50% and a PEEP of 8. Morning blood gases showed a pH of 7.41 with a pCO2 of 38 and pO2 of 152 and there has been marked improvement in his oxygenation. The only positive cultures from his pericardial fluid which is strep pneumo and the patient on high-dose Rocephin. Vancomycin was discontinued by infectious disease as the strep pneumo has been sensitive. He was dynamically stable. Tolerating his tube feeds. Was given a sedation holiday this morning and he was able to wake up and follow commands appropriately. The pericardial tube is not draining at this point. On 05/30/2017 I'm seeing this patient in follow-up. The patient is doing well. I reviewed the chest x-ray and there is some residual infiltration of however they x-ray findings have essentially improved and the patient is improving in terms of his pneumonia. The right-sided pleural effusion was also drained percutaneously with a smaller chest tube by interventional radiology. The fluid cultures of been all negative. The blood culture been negative. The pericardial effusion was positive for Streptococcus pneumonia. The patient is on IV Rocephin 2 g every 24 hours. The patient has a pericardial catheter in place and yesterday the drainage was only 20-30 mL, none for today. This morning, the patient was taken off sedation. He woke up appropriately. Unable to complete the. He has breathing trial as the patient was becoming more and more agitated and anxious and his blood pressure was fluctuating and he was becoming tachypneic. At that point I noted the patient had adequate strength an adequate gag and cough reflex. He is at which her breathing index was also reasonable. At that point I decide to extubate this patient without giving him is participating trial. He extubated successfully and currently is on 5 L oxygen by nasal cannula. This was subsequently weaned down to 3 L. Hemodynamically stable. No chest pain. No other significant issues overnight. The patient is somewhat lethargic over he is still recovering from his underlying sedation. No tremors. No agitation. No signs of delirium tremens at this point. On 05/31/2017 I'm seeing this patient in follow-up. As mentioned earlier, the patient was extubated yesterday without any major difficulties. At the later stage the patient started having symptoms of delirium. He was on and off confused throughout the night and he sees a total of 6 mg of IV Ativan for delirium tremens. This morning, he is not oriented to time and place. His multiple of her extremities. No headache. The antibiotics are still unchanged and the patient is on high dose Rocephin regarding pneumococcal pneumonia and acute pneumococcal pericarditis. The pericardial catheter has drained 80 mL yesterday and there is no active drainage from the right-sided chest tube. Chest x-ray still showing breath and pulmonary infiltrates although improved compared to the initial chest x-ray from May 28. The patient is resting comfortably in bed. No signs of respiratory distress. Active issues for now remains his altered mentation and the delirium tremens. Hemodynamically stable. On 06/01/2017 the patient remains extubated. The patient remains in the intensive care unit. Mentation is still impaired and the patient is still delirious and he is not fully recovered from his delirium tremens. He is not agitated at this point. He had received a total of 8 mg of Ativan since yesterday evening. He is breathing comfortably in bed. There pericardial tube has drained 80 mL today and I reviewed the CAT scan of the chest that showed a loculated right-sided pleural effusion measuring 9.5 x 4.6 x 6.4 cm in size and this is obviously smaller compared to the previous measurement. Additional smaller loculation was also seen. Tiny free flowing effusion is also present bilaterally. Several lymph nodes within the mediastinum largest being 13 mm in size and there is not a 14 mm right paratracheal lymph node also. The patient made on IV Rocephin however today he has developed a maculopapular rash over the anterior chest and back area which could be potentially an ALLERGIC reaction. Cephalosporin ALLERGY needs to be considered. Hemodynamically stable. Producing adequate amount of urine output. He is not eating much over his swallowing is medication. White cell count is at 12.3. The rest of the electrodes are within normal limits. No new cultures are available at this point. On 06/02/2017 the patient remains extubated. The patient is still confused although he seems to be much less agitated and not requiring as much Ativan. He received only 2 mg of Ativan yesterday. Much more responsive today. Not diaphoretic and resting comfortably in bed. Oxygen has been taken off and his pulse ox on room air is 95%. Note that ultimately placed was applied to these chest tube yesterday and there was a drainage of 300 mL of pleural fluid post unclamping of the chest tube. The pericardial catheter has been removed. The patient is on IV Rocephin. His rash has subsided. He is on IV Solu-Medrol. Hemodynamically stable. White cell count remains low. He remains afebrile. He is not eating as much over he can swallow his pills. He went into a episode of atrial fibrillation yesterday and he quite Cardizem bolus and drip and currently is back to normal sinus rhythm and he is on Toprol 25 mg by mouth 3 times a day. Physical therapy will be involved in his case today. On 06/03/2017, the activation remains ongoing delirium tremens. Based on his increased agitation and restlessness overnight the patient was given a total of 8 mg of Ativan. This morning he was more so sleepy. His neurologic exam was nonfocal. A CAT scan of the brain was done that showed no acute abnormalities. As mentioned earlier, he received 2 alteplase treatment to his right lung so the small bore chest tube and the patient had approximately 300 mL of drainage following each application. This morning, I repeated a CAT scan of the chest and patient is found to have loculated pleural collection which has increased in size despite the pigtail catheter and there is also other loculated pleural fluid collection in the right lung with some increasing right lower lobe atelectasis. He remains afebrile. He is on IV Rocephin. Hemodynamically stable. No nausea. No vomiting. No abdominal pain. Oral intake remains low. He is able to swallow his pills. We'll discuss his findings with cardiothoracic surgery. It's reasonable to continue the out of place treatment for now in view of the worsening in loculation along the right chest. On 06/04/2017 the patient is able to sit up on a chair. Profoundly weak yet more interactive and less confused compared to yesterday. As mentioned earlier the CAT scan of the brain came back negative. Neurologic exam remains nonfocal. Another TPA treatment was given to this patient locally through his chest tube and this helped with the increased drainage and the patient put out more than 1000 MLS of pleural fluid following the administration of TPA. The patient is not having any respiratory distress at this point. The chest x-ray shows improvement in the volume status and much improvement in the right lower lobe opacity. Not having any chest pain. No fever. He is on IV Rocephin. CT surgeries on the case. Pericardial tube has been removed earlier as mentioned. The patient is seen again today 06/05/2017 in follow-up on the selective care unit. He is a little more awake and alert. Still somewhat disoriented to place and time. Apparently the chest tube was accidentally removed and the patient was trying to get out of bed. Today's chest x-ray does show some bibasilar atelectasis with continued improvement in the right-sided effusion. Echocardiogram gram today revealed a small generalized pericardial effusion. Ejection fraction 55-60%. He has been hemodynamically stable. Maintaining good O2 saturations in the 90s on room air. Afebrile. White count 12.1. Hemoglobin 12.3. He remains on ceftriaxone. The patient is seen again today 06/06/2017 in follow-up on the selective care unit. He is more awake and alert again today compared to yesterday. He does know the month and year now. He is cooperative. He denies any worsening shortness of breath, cough or congestion. He does have some discomfort on inhalation. His chest x-ray is stable. He is maintaining good O2 saturations in the mid 90s on room air. He is currently afebrile. He remains on ceftriaxone. He remains on the CIWA protocol. The patient is seen again today 06/07/2017 in follow-up on the selective care unit. He continues to be more awake, alert and oriented daily. He is calm and cooperative. He currently denies any shortness of breath, cough or congestion. No chest pain. No pain on inhalation. He is maintaining good O2 saturations in the 90s on room air. Slightly tachycardic. Afebrile. The patient is seen again today 06/08/2017 in follow-up on the regular medical floor. He is awake and alert in no acute distress. He denies any worsening shortness of breath, cough or congestion. No chest pain, palpitations lightheadedness or dizziness. He is maintaining good O2 saturations in the 90s on room air. He's been afebrile. He's been up ambulating with assistance. Reevaluated today on 06/09/2017, patient is doing well, less cough and less wheezing less shortness of breath. Maintaining adequate saturations on room air , has been afebrile, and ambulating with assistance. Labs were reviewed relatively normal electrolytes except for low potassium of 3.4 and a relatively normal CBC noted. Low-grade temp, 99.1 was noted, hemodynamically stable. Chest x-ray from yesterday showed bibasilar opacities with effusions and atelectasis. Objective - Vital Signs Vital signs: Vital Signs Temp 99.1 F 06/09/17 07:00 Pulse 111 H 06/09/17 08:00 Resp 18 06/09/17 08:00 BP 138/87 06/09/17 07:00 Pulse Ox 92 L 06/09/17 07:00 Intake & Output 06/08/17 06/09/17 06/09/17 18:59 06:59 18:59 Intake Total 240 880 Output Total 300 700 Balance -60 180 Weight 90.5 kg Intake: Oral 240 880 Output: Urine 300 700 Other: Voiding Method Urinal Urinal Urinal # Voids 1 3 ABP, PAP, CO, CI - Last Documented Arterial Blood Pressure 136/66 - Exam Head exam was generally normal. There was no scleral icterus or corneal arcus. Mucous membranes were moist..Neck was supple and without jugular venous distension, thyromegaly, or carotid bruits. Carotids were easily palpable bilaterally. There was no adenopathy. Head exam was generally normal. There was no scleral icterus or corneal arcus. Mucous membranes were moist. Lungs sounds are diminished bilaterally. Breath sounds are equal and symmetrical however. No wheezes. Heart sounds are regular, positive S1-S2 and there is a friction rub can be appreciated over the anterior chest wall. The abdomen was soft, non- tender, and without masses, organomegaly, or appreciable enlargement of the abdominal aorta. Examination of the extremities revealed easily palpable radial , femoral and pedal pulses. There was no cyanosis, clubbing or edema. Neurologically , the patient is moving all 4 extremities. Periodic confusion is improving. - Labs CBC & Chem 7: 06/09/17 06:39 06/09/17 06:39 Labs: Abnormal Lab Results - Last 24 Hours (Table) 06/08/17 06/08/17 06/09/17 Range/Units 17:31 20:29 06:39 RBC 3.69 L (4.30-5.90) m/uL Hgb 11.3 L (13.0-17.5) gm/dL Hct 35.1 L (39.0-53.0) % Neutrophils # 8.3 H (1.3-7.7) k/uL Potassium (3.5-5.1) mmol/L BUN (9-20) mg/dL Creatinine (0.66-1.25) mg/dL POC Glucose (mg/dL) 102 H 112 H (75-99) mg/dL Calcium (8.4-10.2) mg/dL ALT (21-72) U/L Total Protein (6.3-8.2) g/dL Albumin (3.5-5.0) g/dL 06/09/17 06/09/17 Range/Units 06:39 11:22 RBC (4.30-5.90) m/uL Hgb (13.0-17.5) gm/dL Hct (39.0-53.0) % Neutrophils # (1.3-7.7) k/uL Potassium 3.4 L (3.5-5.1) mmol/L BUN 7 L (9-20) mg/dL Creatinine 0.56 L (0.66-1.25) mg/dL POC Glucose (mg/dL) 115 H (75-99) mg/dL Calcium 8.0 L (8.4-10.2) mg/dL ALT 120 H (21-72) U/L Total Protein 5.4 L (6.3-8.2) g/dL Albumin 2.3 L (3.5-5.0) g/dL Microbiology - Last 24 Hours (Table) 06/08/17 00:22 Blood Culture - Preliminary Blood No Growth after 24 hours 06/08/17 00:11 Blood Culture - Preliminary Blood No Growth after 24 hours Assessment and Plan Plan: 1 acute hypoxic respiratory failure with development of diffuse breath and pulmonary infiltrates. CAT scan of the chest was reviewed and the findings are consistent with diffuse bilateral pneumonia with loculated right-sided pleural effusion with possibly empyema versus a complicated loculated parapneumonic fluids. A small bore chest tube was inserted to the right hemithorax and total of 600 mL the pleural fluid was aspirated. This was positive for Streptococcus pneumoniae On 05/30/2017, the patient was taken off sedation and he demonstrated adequate ability to maintain his airways patent and he had adequate neurologic function with the patient woke up and he was following commands moving all 4 extremities without any limitation. At that point the decision was to extubate this patient and this was a successful extubation. Currently is on 3 L of oxygen by nasal cannula. On 05/31/2017, the patient remains extubated. A repeat CAT scan of the chest will be obtained to follow-up on the loculated pleural effusion and decided the patient may benefit from an intrapleural TPA. We'll keep the pericardial catheter in place as long as there is still on and off drainage as the patient has drained approximately 80 mL yesterday. The patient is extubated. The patient on IV Rocephin. On 06/01/2017, the CAT scan of the chest was reviewed and the smaller chest tube is still in a good location however it is not draining a lot. Based on this, alteplase will be infused to enhance further drainage from the loculated right-sided pleural effusion. On 06/02/2017 chest x-ray findings are essentially stable. Nevertheless, there has been improved drainage from his right lung and I would consider repeating the alteplase today to improve the drainage and hopefully evacuate that the loculated right-sided pleural effusion. As such the alteplase will be repeated today and we'll monitor the output and repeat chest x-ray in the morning. On 06/03/2017, the patient shows increased loculation and atelectasis of the right lung and the patient has already received 2 alteplase treatment with subsequent worsening. He is an IV Rocephin. No signs of sepsis. Not in acute respiratory distress at this point. On 06/04/2017, the patient is post third TPA treatment which further improve the drainage from the right lung and the patient is feeling well and the chest x -ray shows improvement in the right lower lobe opacity/effusion. We'll continue monitoring the output from the chest tube as long as there is ongoing drainage. On 06/05/2017, the patient inadvertently pulled out his chest tube while trying to climb out of bed last evening. Today's chest x-ray shows continued improvement in the right lower lobe effusion. No plans for reinsertion. On 06/06/2017 the patient mental status has improved. He is oriented 2 now. He denies any worsening shortness of breath, cough or congestion. On 06/07/2017 the patient is seen again today. He continues to improve mentally but not necessarily aware of his situation. On 06/09/2017, patient continues to clinically improve, chest x-ray was reviewed , patient is still on the same antibiotics, consider discharge planning in the next 24-48 hours. Patient is still followed by many consultants including infectious disease, and antibiotics as per ID on the case. 2 acute STEMI status post emergent cardiac catheterization and stenting of the LAD 3 acute infectious pneumococcal pericarditis, with a pericardial effusion/ infected pericardial fluid with cultures growing strep pneumo, status post percutaneous drainage of the pericardial effusion at the bedside and the patient had catheter placed within the pericardium. The output from the pericardial tube is minimal at this point, and the tube was pulled out yesterday by CT surgery. Echocardiogram today 06/05/2017 reveals small pericardial effusion. 4 alcoholism 5 delirium tremens , active 6 Maculopapular rash, resolved with Solu-Medrol 7 paroxysmal atrial fibrillation, current rhythm is sinus on beta blockers Recommendation: Continue present supportive care measures, will continue to follow. Time with Patient: Less than 30
[2017-06-09] MEDS: THIAMINE 100 MG TAB PO SCH (14:26)
[2017-06-09] MEDS: FOLIC ACID 1 MG TAB PO SCH (14:26)
[2017-06-09] MEDS: ACETAMINOPHEN TAB 500 MG TAB PO PRN (15:53)
[2017-06-09] MEDS: LORazepam 2 MG/ML SYRINGE IV PRN (15:54)
--- NOTE | 2017-06-09 16:54 | P.PN ---
Subjective Mr. Araujo is a 52-year-old male with a past medical history of chronic low back pain, hypertension, alcohol abuse and nicotine dependence coming into the hospital with a chief complaint of chest pain. Patient has history of chronic low back pain and pain of his neck that has been going on but for the past 5 days his symptoms have worsened. Patient's chest pain got worse and he was complaining of 10 out of 10 and so called the EMS. The paramedics did perform an EKG which was suspicious for ST elevation PR. He was given aspirin and nitroglycerin and transferred to [facility] for further evaluation. So the senior online marketing manager nozzle cement sprayer helper Dr. GRICELDA Gonzales was informed, who did an emergent cardiac catheterization. The patient had a stent placed in his LAD and was also noted to have a large pericardial effusion. So CT surgeon Dr. Multani came in and did a pericardiocentesis. There was 380 mL of fluid drained out. And the patient has been transferred to the ICU for further management and care. On 05/26/17- on the night of 05/26 the patient became very combative and was trying to put all his lines and the pericardial catheter. The patient was placed on a CIWA scale and given 10 mg of Ativan without much improvement in his symptoms. So eventually he was given Haldol after which the patient did calm down. Around 230 ml of fluid was drained from the pericardium. On 05/27/17 - patient was pretty confused, agitated and was on restraints , he was placed on BiPAP and as he was desaturating. Dr. Angel had to intubate the patient around 10 AM today due to impending respiratory failure due to ARDS. Patient also had a bronchoscopy done by Dr. Angel this morning. Patient's pericardial fluid came back to be positive for Streptococcus and he has been started on ceftriaxone. On 05/28/2017- patient still remains intubated. He is on a Levophed drip. Sedated on propofol. Patient had thoracentesisdone today and 400 mL of fluid was drained. And the chest tube was placed. 05/29/2017 Patient failed a weaning trial this morning. With sedation holiday patient is able to move all his 4 extremities and follows simple commands. Cultures from bronchial washings showed no growth for the past 24 hours. On 05/30/17 - pt has been extubated successfully and is saturating above 90 % on 3 lt of nasal canula. on 05/31/17 Pt. is confused but able to answer slowly. resp status improved. still on chest tube and pericardial drain tube. 06/01/17 pt is confused able to answer questions no overnight events reported tries to get out of bed ROS_ deferred due to pt's confusion 06/02/2017 Patient is confused however is able to answer some questions appropriately Denies having any additional problems Overnight the patient had changed into atrial fibrillation is currently maintained on a Cardizem drip 06/03/17 confused no overnight events TPA is infused due to complicated effusion, loculated 06/04/17 still confused however improving no overnight events reported 06/05/17 pt pulled his chest tube no other overnight events 06/06/17 more appropriate no chest pain, arielle, nausea, vomiting, diarrhea 06/07/17 no new complaints no overnight events denies fevers,chills, nausea, cough, ARIELLE 06/09/17 no new overnight events pt is doing well denies chest pains, fevers, cough, nausea, vomiting, diarrhea - Exam GEN. APPEARANCE: no acute distress. HEAD EXAM: Atraumatic EYE EXAM: No pallor no icterus ENT EXAM: ET tube in place NECK EXAM: No carotid bruit. No thyromegaly RESPIRATORY EXAM: Diminished breath sounds bilaterally. Coarse breath sounds in all lung [place] with crackles. CARDIOVASCULAR EXAM: regular S1 and S2 heard. GI/ABDOMINAL EXAM: Soft nontender. No guarding or rigidity. EXTREMITIES EXAM: No cyanosis, no swelling, no edema. NEUROLOGICAL EXAM: confused SKIN EXAM: warm to touch. No rash. Assessment and Plan Plan: ASSESSMENT Septic shock Streptococcal pericarditis Acute hypoxic respiratory failure secondary to ARDS Pneumonia right upper lobe ST elevation PR status post stenting of LAD Pericardial effusion Alcohol withdrawal delirium tremens Chronic liver disease Chronic alcohol abuse Chronic nicotine dependence New-onset atrial fibrillation with rapid ventricular rate PLAN delirium is noted pt is able to make his own decisions for medical care dc to NH on saturday ABX DVT prophylaxis Objective - Vital Signs Vital signs: Vital Signs Temp 100.9 F H 06/09/17 15:00 Pulse 110 H 06/09/17 15:42 Resp 18 06/09/17 15:42 BP 124/70 06/09/17 15:00 Pulse Ox 95 06/09/17 15:00 Intake & Output 06/08/17 06/09/17 06/09/17 18:59 06:59 18:59 Intake Total 240 880 240 Output Total 300 700 Balance -60 180 240 Weight 90.5 kg Intake: Oral 240 880 240 Output: Urine 300 700 Other: Voiding Method Urinal Urinal Urinal # Voids 1 3 3 ABP, PAP, CO, CI - Last Documented Arterial Blood Pressure 136/66 - Labs CBC & Chem 7: 06/09/17 06:39 06/09/17 06:39 Labs: Abnormal Lab Results - Last 24 Hours (Table) 06/08/17 06/08/17 06/09/17 Range/Units 17:31 20:29 06:39 RBC 3.69 L (4.30-5.90) m/uL Hgb 11.3 L (13.0-17.5) gm/dL Hct 35.1 L (39.0-53.0) % Neutrophils # 8.3 H (1.3-7.7) k/uL Potassium (3.5-5.1) mmol/L BUN (9-20) mg/dL Creatinine (0.66-1.25) mg/dL POC Glucose (mg/dL) 102 H 112 H (75-99) mg/dL Calcium (8.4-10.2) mg/dL ALT (21-72) U/L Total Protein (6.3-8.2) g/dL Albumin (3.5-5.0) g/dL 06/09/17 06/09/17 Range/Units 06:39 11:22 RBC (4.30-5.90) m/uL Hgb (13.0-17.5) gm/dL Hct (39.0-53.0) % Neutrophils # (1.3-7.7) k/uL Potassium 3.4 L (3.5-5.1) mmol/L BUN 7 L (9-20) mg/dL Creatinine 0.56 L (0.66-1.25) mg/dL POC Glucose (mg/dL) 115 H (75-99) mg/dL Calcium 8.0 L (8.4-10.2) mg/dL ALT 120 H (21-72) U/L Total Protein 5.4 L (6.3-8.2) g/dL Albumin 2.3 L (3.5-5.0) g/dL Microbiology - Last 24 Hours (Table) 06/08/17 00:22 Blood Culture - Preliminary Blood No Growth after 24 hours 06/08/17 00:11 Blood Culture - Preliminary Blood No Growth after 24 hours
[2017-06-09] MEDS ORDERED: traMADol 50 MG TAB PO PRN (17:05)
[2017-06-09] MEDS ORDERED: POTASSIUM CHLORIDE ER 20 MEQ TAB.ER PO SCH (19:00)
[2017-06-09] MEDS: QUEtiapine 50 MG TAB PO SCH (21:19)
[2017-06-09] MEDS: amLODIPine 5 MG TAB PO SCH (21:19)
[2017-06-09] MEDS: DILTIAZEM 125 MG in SODIUM CHLORIDE 0.9% 100 ML IV SCH (22:00)
[2017-06-09 23:20] LABS: Basophils % (A) 0 %; CH 31.2; CHCM 32.9; Eosinophils # (A) 0.1 k/uL (0-0.7); Eosinophils % (A) 1 %; HDW 2.51; HGB 11.7 gm/dL (13.0-17.5); Luc # (Auto) 0.19; Luc % (Auto) 2; Lymphocytes # (A) 1.2 k/uL (1.0-4.8); Lymphocytes % (A) 12 %; MCHC 32.5 g/dL (31.0-37.0); MCV 95.2 fL (80.0-100.0); Mean Platelet Volume 8.2; Monocytes # (A) 0.7 k/uL (0-1.0); Monocytes % (A) 6 %; Neutrophils % (A) 79 %; RBC 3.78 m/uL (4.30-5.90); RDW 13.3 % (11.5-15.5); WBC 10.2 k/uL (3.8-10.6); WBC (Perox) 10.04
[2017-06-09 23:37] LABS: Anion Gap 10 mmol/L; Blood Urea Nitrogen 8 mg/dL (9-20); Calcium 8.2 mg/dL (8.4-10.2); Carbon Dioxide 25 mmol/L (22-30); Chloride 103 mmol/L (98-107); Glucose 132 mg/dL (74-99); Magnesium 1.8 mg/dL (1.6-2.3); Non-African American GFR(MDRD) >60 (>60 ml/min/1.73 sqM); Potassium 3.4 mmol/L (3.5-5.1); Sodium 138 mmol/L (137-145)
[2017-06-10 00:01] LABS: Glucose,Whole Blood 134 mg/dL (75-99)
[2017-06-10] MEDS ORDERED: Potassium Replacement Protocol 1 EACH MISC MISCELLANE PRN (03:48)
[2017-06-10] MEDS: POTASSIUM CHLORIDE ER 20 MEQ TAB.ER PO SCH ×2 (04:14→06:26)
[2017-06-10] MEDS: INSULIN LISPRO (humaLOG) 300 UNIT/3 ML VIAL SQ SCH (06:35)
[2017-06-10 06:40] LABS: Glucose,Whole Blood 117 mg/dL (75-99)
[2017-06-10] MEDS: DILTIAZEM 125 MG in SODIUM CHLORIDE 0.9% 100 ML IV SCH ×2 (06:47→08:24)
[2017-06-10] MEDS: PANTOPRAZOLE 40 MG TABLET PO SCH (07:01)
[2017-06-10] MEDS: ATORVASTATIN 40 MG TAB PO SCH (08:26)
[2017-06-10] MEDS: CLOPIDOGREL 75 MG TAB PO SCH (08:26)
[2017-06-10] MEDS: METOPROLOL TARTRATE 50 MG TAB PO SCH ×2 (08:26→21:18)
[2017-06-10] MEDS: ENOXAPARIN 40 MG/0.4 ML SYRINGE SQ SCH (08:27)
[2017-06-10] MEDS: ASPIRIN 81 MG CHEW PO SCH (08:27)
[2017-06-10] MEDS: IPRATROPIUM-ALBUTEROL 3 ML NEB INHALATION SCH ×4 (08:43→19:16)
[2017-06-10] MEDS ORDERED: Magnesium Replacement Protocol 1 EACH MISC MISCELLANE PRN ×2 (09:45→10:05)
[2017-06-10] MEDS: THIAMINE 100 MG TAB PO SCH (09:52)
[2017-06-10] MEDS: FOLIC ACID 1 MG TAB PO SCH (09:52)
[2017-06-10] MEDS: cefTRIAXone 2,000 MG in SODIUM CHLORIDE 0.9% 100 ML IVPB SCH (09:53)
[2017-06-10] MEDS ORDERED: POTASSIUM CHLORIDE ER 20 MEQ TAB.ER PO SCH (10:00)
--- NOTE | 2017-06-10 11:13 | P.PN ---
Subjective Mr. Araujo is a 52-year-old male with a past medical history of chronic low back pain, hypertension, alcohol abuse and nicotine dependence coming into the hospital with a chief complaint of chest pain. Patient has history of chronic low back pain and pain of his neck that has been going on but for the past 5 days his symptoms have worsened. Patient's chest pain got worse and he was complaining of 10 out of 10 and so called the EMS. The paramedics did perform an EKG which was suspicious for ST elevation [place]. He was given aspirin and nitroglycerin and transferred to [facility] for further evaluation. So the senior vice president and chief information officer cementing machine operator Dr. GRICELDA Gonzales was informed, who did an emergent cardiac catheterization. The patient had a stent placed in his LAD and was also noted to have a large pericardial effusion. So CT surgeon Dr. Multani came in and did a pericardiocentesis. There was 380 mL of fluid drained out. And the patient has been transferred to the ICU for further management and care. On 05/26/17- on the night of 05/26 the patient became very combative and was trying to put all his lines and the pericardial catheter. The patient was placed on a CIWA scale and given 10 mg of Ativan without much improvement in his symptoms. So eventually he was given Haldol after which the patient did calm down. Around 230 ml of fluid was drained from the pericardium. On 05/27/17 - patient was pretty confused, agitated and was on restraints , he was placed on BiPAP and as he was desaturating. Dr. Angel had to intubate the patient around 10 AM today due to impending respiratory failure due to ARDS. Patient also had a bronchoscopy done by Dr. Angel this morning. Patient's pericardial fluid came back to be positive for Streptococcus and he has been started on ceftriaxone. On 05/28/2017- patient still remains intubated. He is on a Levophed drip. Sedated on propofol. Patient had thoracentesisdone today and 400 mL of fluid was drained. And the chest tube was placed. 05/29/2017 Patient failed a weaning trial this morning. With sedation holiday patient is able to move all his 4 extremities and follows simple commands. Cultures from bronchial washings showed no growth for the past 24 hours. On 05/30/17 - pt has been extubated successfully and is saturating above 90 % on 3 lt of nasal canula. on 05/31/17 Pt. is confused but able to answer slowly. resp status improved. still on chest tube and pericardial drain tube. 06/01/17 pt is confused able to answer questions no overnight events reported tries to get out of bed ROS_ deferred due to pt's confusion 06/02/2017 Patient is confused however is able to answer some questions appropriately Denies having any additional problems Overnight the patient had changed into atrial fibrillation is currently maintained on a Cardizem drip 06/03/17 confused no overnight events TPA is infused due to complicated effusion, loculated 06/04/17 still confused however improving no overnight events reported 06/05/17 pt pulled his chest tube no other overnight events 06/06/17 more appropriate no chest pain, arielle, nausea, vomiting, diarrhea 06/07/17 no new complaints no overnight events denies fevers,chills, nausea, cough, ARIELLE 06/09/17 no new overnight events pt is doing well denies chest pains, fevers, cough, nausea, vomiting, diarrhea Evident 2016 Patient apparently was confused overnight Stated that he wanted to kill himself this morning Went into atrial fibrillation with rapid ventricular rate Was started on a Cardizem drip briefly. - Exam GEN. APPEARANCE: no acute distress. HEAD EXAM: Atraumatic EYE EXAM: No pallor no icterus ENT EXAM: ET tube in place NECK EXAM: No carotid bruit. No thyromegaly RESPIRATORY EXAM: Diminished breath sounds bilaterally. Improved breath sounds increased air movement CARDIOVASCULAR EXAM: regular S1 and S2 heard. GI/ABDOMINAL EXAM: Soft nontender. No guarding or rigidity. EXTREMITIES EXAM: No cyanosis, no swelling, no edema. NEUROLOGICAL EXAM: confused SKIN EXAM: warm to touch. No rash. Assessment and Plan Plan: ASSESSMENT Septic shock Streptococcal pericarditis Acute hypoxic respiratory failure secondary to ARDS Pneumonia right upper lobe ST elevation [place] status post stenting of LAD Pericardial effusion Alcohol withdrawal delirium tremens Chronic liver disease Chronic alcohol abuse Chronic nicotine dependence New-onset atrial fibrillation with rapid ventricular rate Suicidal ideation PLAN public guardian at this time May need to be evaluated by our psychiatrist A PICC line will be placed later tomorrow Sitter at bedside patient is confused will obtain labs as likely as his delirium Objective - Vital Signs Vital signs: Vital Signs Temp 96.1 F L 06/10/17 08:00 Pulse 108 H 06/10/17 08:00 Resp 20 06/10/17 08:00 BP 116/84 06/10/17 08:00 Pulse Ox 92 L 06/10/17 08:00 Intake & Output 06/09/17 06/10/17 06/10/17 18:59 06:59 18:59 Intake Total 240 87.833 331.500 Balance 240 87.833 331.500 Weight 90 kg Intake: Intake, IV Titration 87.833 31.500 Amount Diltiazem 125 mg In 87.833 31.500 Sodium Chloride 0.9% 100 ml @ 10 MG/HR 10 mls/hr IV .[id number] DIANA Rx#: [id number] Oral 240 300 Other: Voiding Method Urinal Urinal Urinal # Voids 3 1 ABP, PAP, CO, CI - Last Documented Arterial Blood Pressure 136/66 - Labs CBC & Chem 7: 06/09/17 22:50 06/10/17 07:33 Labs: Abnormal Lab Results - Last 24 Hours (Table) 06/09/17 06/09/17 06/09/17 Range/Units 11:22 22:50 22:50 RBC 3.78 L (4.30-5.90) m/uL Hgb 11.7 L (13.0-17.5) gm/dL Hct 36.0 L (39.0-53.0) % Neutrophils # 8.0 H (1.3-7.7) k/uL Potassium 3.4 L (3.5-5.1) mmol/L BUN 8 L (9-20) mg/dL Creatinine 0.60 L (0.66-1.25) mg/dL Glucose 132 H (74-99) mg/dL POC Glucose (mg/dL) 115 H (75-99) mg/dL Calcium 8.2 L (8.4-10.2) mg/dL 06/09/17 06/10/17 Range/Units 23:59 06:28 RBC (4.30-5.90) m/uL Hgb (13.0-17.5) gm/dL Hct (39.0-53.0) % Neutrophils # (1.3-7.7) k/uL Potassium (3.5-5.1) mmol/L BUN (9-20) mg/dL Creatinine (0.66-1.25) mg/dL Glucose (74-99) mg/dL POC Glucose (mg/dL) 134 H 117 H (75-99) mg/dL Calcium (8.4-10.2) mg/dL Microbiology - Last 24 Hours (Table) 06/08/17 00:22 Blood Culture - Preliminary Blood No Growth after 48 hours 06/08/17 00:11 Blood Culture - Preliminary Blood No Growth after 48 hours
[2017-06-10] MEDS: MAGNESIUM SULFATE-D5W PMX 1 GM in DEXTROSE/WATER 1 100ML.BAG IVPB SCH ×2 (12:27→14:00)
[2017-06-10] MEDS: DILTIAZEM ORAL 30 MG TAB PO SCH ×4 (12:27→21:18)
--- NOTE | 2017-06-10 14:32 | P.PN ---
Subjective This patient was admitted with evidence of pericarditis ischemic syndrome. Patient had a stent placement. Subsequently, patient had a pericardial tube placement for drainage of the pericardial effusion. Patient also developed pneumonia and delirium tremens related to alcohol withdrawal. Patient quite confused, is aware of the year and the month. Lying down in bed, sitter at bedside. Patient is walking with help. Hemodynamically stable. No recurrence of atrial fibrillation. Repeat echocardiogram with Doppler study revealed a small pericardial effusion. Overall, patient seemed to be relatively stable. 06/06/2017 Patient seen and examined this morning, much more alert and oriented today. Did complain of an episode of chest discomfort that worsened with deep breathing , likely secondary to pericarditis. Blood pressure 118/70 with a heart rate in the 90s. White blood cell count 17,000. 06/07/2017 Patient seen and examined today, denies any chest pain, hemodynamically stable. Potassium 3.3 which is being replaced. 06/10/2017 Patient went into atrial flutter with rapid ventricular response through the night last night and was initiated on IV Cardizem drip. This morning he is in a sinus rhythm to sinus tachycardia with occasional PVC. Currently there is a sitter at the bedside, because the patient had apparently threatened to kill himself. He is quite depressed overall today. Hemodynamically stable. Objective - Vital Signs Vital signs: Vital Signs Temp 97.4 F L 06/10/17 11:30 Pulse 84 06/10/17 11:30 Resp 20 06/10/17 11:30 BP 106/74 06/10/17 11:30 Pulse Ox 93 L 06/10/17 11:30 Intake & Output 06/09/17 06/10/17 06/10/17 18:59 06:59 18:59 Intake Total 240 87.833 831.500 Balance 240 87.833 831.500 Weight 90 kg Intake: IV 300 Magnesium Sulfate-D5w Pmx 200 1 gm In Dextrose/Water 1 100ml.bag @ 100 mls/hr IVPB Q1H DIANA Rx#: [id number] cefTRIAXone 2,000 mg In 100 Sodium Chloride 0.9% 100 ml @ 100 mls/hr IVPB Q24HR DIANA Rx#:[id number] Intake, IV Titration 87.833 31.500 Amount Diltiazem 125 mg In 87.833 31.500 Sodium Chloride 0.9% 100 ml @ 10 MG/HR 10 mls/hr IV .[id number] DIANA Rx#: [id number] Oral 240 500 Other: Voiding Method Urinal Urinal Urinal # Voids 3 1 ABP, PAP, CO, CI - Last Documented Arterial Blood Pressure 136/66 - Exam GENERAL EXAM: Patient is sleepy and sluggish but arousable HEENT: Normocephalic. Normal reaction of pupils, equal size, normal range of extraocular motion. No erythema or exudates in the throat. NECK: No masses, no nuchal rigidity. CHEST: No chest wall deformity. LUNGS: Equal air entry with no crackles or wheeze. HEART: S1 and S2 normal with no audible mumurs or gallops. Regular rhythm, femorals equal on both sides.. ABDOMEN: No hepatosplenomegaly, normal bowel sounds, no guarding or rigidity. SKIN: No rashes CENTRAL NERVOUS SYSTEM: Deferred EXTREMITIES: No cyanosis, clubbing or edema. - Labs CBC & Chem 7: 06/09/17 22:50 06/10/17 07:33 Labs: Abnormal Lab Results - Last 24 Hours (Table) 06/09/17 06/09/17 06/09/17 Range/Units 22:50 22:50 23:59 RBC 3.78 L (4.30-5.90) m/uL Hgb 11.7 L (13.0-17.5) gm/dL Hct 36.0 L (39.0-53.0) % Neutrophils # 8.0 H (1.3-7.7) k/uL Potassium 3.4 L (3.5-5.1) mmol/L BUN 8 L (9-20) mg/dL Creatinine 0.60 L (0.66-1.25) mg/dL Glucose 132 H (74-99) mg/dL POC Glucose (mg/dL) 134 H (75-99) mg/dL Calcium 8.2 L (8.4-10.2) mg/dL 06/10/17 Range/Units 06:28 RBC (4.30-5.90) m/uL Hgb (13.0-17.5) gm/dL Hct (39.0-53.0) % Neutrophils # (1.3-7.7) k/uL Potassium (3.5-5.1) mmol/L BUN (9-20) mg/dL Creatinine (0.66-1.25) mg/dL Glucose (74-99) mg/dL POC Glucose (mg/dL) 117 H (75-99) mg/dL Calcium (8.4-10.2) mg/dL Microbiology - Last 24 Hours (Table) 06/08/17 00:22 Blood Culture - Preliminary Blood No Growth after 48 hours 06/08/17 00:11 Blood Culture - Preliminary Blood No Growth after 48 hours Assessment and Plan (1) Pericarditis Status: Acute (2) Alcoholism Status: Acute (3) COPD (chronic obstructive pulmonary disease) Status: Acute (4) Nicotine dependence Status: Acute (5) Paroxysmal atrial fibrillation Status: Acute (6) Pericardial effusion Status: Acute Plan: From cardiology's perspective, we'll continue patient on his current medications. Patient has been initiated on by mouth Cardizem. We will continue current dose of beta ira. We will follow this patient with you now on an as-needed basis only, please do hesitate to call with any questions. DNP note has been reviewed, I agree with a documented findings and plan of care. Patient was seen and examined.
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
--- NOTE | 2017-06-10 18:44 | P.PN ---
Subjective Principal diagnosis: Purulent pericarditis This is a 52-year-old male who presented to [facility] emergency center on May 25 due to chest pain that had been going on for 5 days and worsening. Patient was found to have ST elevation and was taken to the laboratory supervisor with Dr. GRICELDA Gonzales and found to have a 60-70% lesion in the LAD and was subsequently stented. Patient also was found to have a large pericardial effusion and was started on Zosyn and Levaquin and admitted to the intensive care unit. He underwent a bedside echo guided pericardiocentesis and insertion of a pericardial drain done on May 25 with removal of 380 ML's of cloudy tannish fluid. Yesterday he had 225 mL removed in today 125 mL. Chest x -ray showed cardiomegaly, right upper lobe consolidation and bibasilar at infiltrate or atelectasis. He is also followed by Dr. Angel from pulmonary medicine and patient was on BiPAP this morning pulseox was 80% with agitation and confusion and ended up being intubated today. He has presented with a temperature of 101.1, white count of 29.7, sodium 123, blood sugar 314, lactic acid 2.7. Urinalysis was cloudy, protein 1+, blood moderate, leukocyte esterase trace, wbc's 15, clumps rare bacteria rare. Urine culture is in progress and blood cultures status received. Pericardial fluid alphahemolytic strep. Patient has history of drinking 18 beers per day and is on the CIWA protocol. Bronchoscopy was performed. Doing much better mentation is much clearer Improved with chest tube out. Objective - Vital Signs Vital signs: Vital Signs Temp 97.5 F L 06/10/17 15:26 Pulse 94 06/10/17 15:26 Resp 16 06/10/17 15:26 BP 110/81 06/10/17 15:26 Pulse Ox 94 L 06/10/17 15:26 Intake & Output 06/09/17 06/10/17 06/10/17 18:59 06:59 18:59 Intake Total 240 87.833 1031.500 Output Total 200 Balance 240 87.833 831.500 Weight 90 kg Intake: IV 300 Magnesium Sulfate-D5w Pmx 200 1 gm In Dextrose/Water 1 100ml.bag @ 100 mls/hr IVPB Q1H [facility] Rx#: [id number] cefTRIAXone 2,000 mg In 100 Sodium Chloride 0.9% 100 ml @ 100 mls/hr IVPB Q24HR [facility] Rx#:[id number] Intake, IV Titration 87.833 31.500 Amount Diltiazem 125 mg In 87.833 31.500 Sodium Chloride 0.9% 100 ml @ 10 MG/HR 10 mls/hr IV .[id number] [facility] Rx#: [id number] Oral 240 700 Output: Urine 200 Other: Voiding Method Urinal Urinal Urinal # Voids 3 1 ABP, PAP, CO, CI - Last Documented Arterial Blood Pressure 136/66 - Exam Gen: This is a 52-year-old male. Patient is now extubated but is not a good historian HEENT: Head is atraumatic, normocephalic. Sclerae is anicteric. Dentition is in poor order NECK: Supple. No JVD. No lymphadenopathy. No thyromegaly. LUNGS: Diminished bilaterally with scattered crackles. Decreased breath sounds especially to the right base, chest tube removed with improved aeration right base. HEART: Regular rate and rhythm. No murmur. pericardial tube removed. minimal crunch at times ABDOMEN: Soft. Bowel sounds are present. No masses. No tenderness. EXTREMITIES: No pedal edema. No calf swelling NEUROLOGICAL: The patient remains a poor historian. He follows commands without difficulty. Skin without breakdown prior rash has resolved - Labs CBC & Chem 7: 06/09/17 22:50 06/10/17 07:33 Labs: Abnormal Lab Results - Last 24 Hours (Table) 06/09/17 06/09/17 06/09/17 Range/Units 22:50 22:50 23:59 RBC 3.78 L (4.30-5.90) m/uL Hgb 11.7 L (13.0-17.5) gm/dL Hct 36.0 L (39.0-53.0) % Neutrophils # 8.0 H (1.3-7.7) k/uL Potassium 3.4 L (3.5-5.1) mmol/L BUN 8 L (9-20) mg/dL Creatinine 0.60 L (0.66-1.25) mg/dL Glucose 132 H (74-99) mg/dL POC Glucose (mg/dL) 134 H (75-99) mg/dL Calcium 8.2 L (8.4-10.2) mg/dL 06/10/17 Range/Units 06:28 RBC (4.30-5.90) m/uL Hgb (13.0-17.5) gm/dL Hct (39.0-53.0) % Neutrophils # (1.3-7.7) k/uL Potassium (3.5-5.1) mmol/L BUN (9-20) mg/dL Creatinine (0.66-1.25) mg/dL Glucose (74-99) mg/dL POC Glucose (mg/dL) 117 H (75-99) mg/dL Calcium (8.4-10.2) mg/dL Microbiology - Last 24 Hours (Table) 06/08/17 00:22 Blood Culture - Preliminary Blood No Growth after 48 hours 06/08/17 00:11 Blood Culture - Preliminary Blood No Growth after 48 hours Laboratory Results WBC 10.2 k/uL (3.8-10.6) 06/09/17 22:50 RBC 3.78 m/uL (4.30-5.90) L 06/09/17 22:50 Hgb 11.7 gm/dL (13.0-17.5) L 06/09/17 22:50 Hct 36.0 % (39.0-53.0) L 06/09/17 22:50 MCV 95.2 fL (80.0-100.0) 06/09/17 22:50 MCH 31.0 pg (25.0-35.0) 06/09/17 22:50 MCHC 32.5 g/dL (31.0-37.0) 06/09/17 22:50 RDW 13.3 % (11.5-15.5) 06/09/17 22:50 Plt Count 291 k/uL (150-450) 06/09/17 22:50 Neutrophils % 79 % 06/09/17 22:50 Neutrophils % (Manual) 54.5 % 05/26/17 05:35 Band Neutrophils % 39.0 % 05/26/17 05:35 Lymphocytes % 12 % 06/09/17 22:50 Lymphocytes % (Manual) 4.5 % 05/26/17 05:35 Monocytes % 6 % 06/09/17 22:50 Monocytes % (Manual) 1.5 % 05/26/17 05:35 Eosinophils % 1 % 06/09/17 22:50 Basophils % 0 % 06/09/17 22:50 Metamyelocytes % 0.5 % 05/26/17 05:35 Neutrophils # 8.0 k/uL (1.3-7.7) H 06/09/17 22:50 Neutrophils # (Manual) 20.4 k/uL (1.3-7.7) H 05/26/17 05:35 Lymphocytes # 1.2 k/uL (1.0-4.8) 06/09/17 22:50 Lymphocytes # (Manual) 1.0 k/uL (1.0-4.8) 05/26/17 05:35 Monocytes # 0.7 k/uL (0-1.0) 06/09/17 22:50 Monocytes # (Manual) 0.3 k/uL (0-1.0) 05/26/17 05:35 Eosinophils # 0.1 k/uL (0-0.7) 06/09/17 22:50 Basophils # 0.0 k/uL (0-0.2) 06/09/17 22:50 Nucleated RBCs 0 /100 WBC (0-0) 05/26/17 05:35 Manual Slide Review Performed 05/25/17 15:00 Toxic Granulation Present 05/26/17 05:35 RBC Morphology Normal 05/25/17 15:00 Polychromasia Present 05/26/17 05:35 Poikilocytosis (manual Present 05/26/17 05:35 Anisocytosis (manual) Present 05/26/17 05:35 PT 12.1 sec (9.0-12.0) H 05/28/17 10:45 INR 1.2 (<1.2) H 05/28/17 10:45 APTT 25.9 sec (22.0-30.0) 05/25/17 15:00 D-Dimer 1.32 mg/L FEU (<0.60) H 05/25/17 15:00 Sample Site charlene 05/30/17 05:16 ABG pH 7.49 (7.35-7.45) H 05/30/17 05:16 ABG pCO2 34 mmHg (35-45) L 05/30/17 05:16 ABG pO2 85 mmHg (83-108) 05/30/17 05:16 ABG HCO3 26 mmol/L (21-25) H 05/30/17 05:16 ABG Total CO2 27 mmol/L (19-24) H 05/30/17 05:16 ABG O2 Saturation 97.0 % (94-97) 05/30/17 05:16 ABG Base Excess 2.4 mmol/L 05/30/17 05:16 ABG Hematocrit 48 % (34.0-46.0) H 05/25/17 16:00 FiO2 40 % 05/30/17 05:16 Sodium 138 mmol/L (137-145) 06/09/17 22:50 Potassium 3.6 mmol/L (3.5-5.1) 06/10/17 07:33 Chloride 103 mmol/L (98-107) 06/09/17 22:50 Carbon Dioxide 25 mmol/L (22-30) 06/09/17 22:50 Anion Gap 10 mmol/L 06/09/17 22:50 BUN 8 mg/dL (9-20) L 06/09/17 22:50 Creatinine 0.60 mg/dL (0.66-1.25) L 06/09/17 22:50 Est GFR (MDRD) Af Amer >60 (>60 ml/min/1.73 sqM) 06/09/17 22:50 Est GFR (MDRD) Non-Af >60 (>60 ml/min/1.73 sqM) 06/09/17 22:50 Glucose 132 mg/dL (74-99) H 06/09/17 22:50 POC Glucose (mg/dL) 117 mg/dL (75-99) H 06/10/17 06:28 POC Glu [employer]line [employer] Operator ID Stephania Kaiser 06/10/17 06:[address] Glu mg/dL 105 mg/dL 05/25/17 15:00 Hemoglobin A1c 5.3 % (4.2-6.1) 05/25/17 15:00 Lactic Ac Sepsis Rflx Y 05/26/17 06:08 Plasma Lactic Acid Rob 2.7 mmol/L (0.7-2.0) H* 05/26/17 09:47 Calcium 8.2 mg/dL (8.4-10.2) L 06/09/17 22:50 Phosphorus 2.7 mg/dL (2.5-4.5) 06/07/17 06:35 Magnesium 1.8 mg/dL (1.6-2.3) 06/10/17 07:33 Total Bilirubin 0.7 mg/dL (0.2-1.3) 06/09/17 06:39 AST 55 U/L (17-59) 06/09/17 06:39 ALT 120 U/L (21-72) H 06/09/17 06:39 Alkaline Phosphatase 73 U/L (38-126) 06/09/17 06:39 Lactate Dehydrogenase 861 U/L (313-618) H 05/28/17 04:30 Total Creatine Kinase 29 U/L (55-170) L 05/25/17 15:00 CK-MB (CK-2) 0.6 ng/mL (0.0-2.4) 05/25/17 15:00 CK-MB (CK-2) Rel Index 2.1 05/25/17 15:00 Troponin I 0.030 ng/mL (0.000-0.034) 05/26/17 05:35 Total Protein 5.4 g/dL (6.3-8.2) L 06/09/17 06:39 Albumin 2.3 g/dL (3.5-5.0) L 06/09/17 06:39 Urine Color Yellow 05/26/17 05:00 Urine Appearance Cloudy (Clear) 05/26/17 05:00 Urine pH 5.5 (5.0-8.0) 05/26/17 05:00 Ur Specific [place] 1.030 (1.001-1.035) 05/26/17 05:00 Urine Protein 1+ (Negative) H 05/26/17 05:00 Urine Glucose (UA) Negative (Negative) 05/26/17 05:00 Urine Ketones Negative (Negative) 05/26/17 05:00 Urine Blood Moderate (Negative) H 05/26/17 05:00 Urine Nitrite Negative (Negative) 05/26/17 05:00 Urine Bilirubin Negative (Negative) 05/26/17 05:00 Urine Urobilinogen 2.0 mg/dL (<2.0) 05/26/17 05:00 Ur Leukocyte Esterase Trace (Negative) H 05/26/17 05:00 Urine RBC 10 /hpf (0-5) H 05/26/17 05:00 Urine WBC 15 /hpf (0-5) H 05/26/17 05:00 Urine WBC Clumps Rare /hpf (None) H 05/26/17 05:00 Ur Squamous Epith Cells 1 /hpf (0-4) 05/26/17 05:00 Amorphous Sediment Rare /hpf (None) H 05/26/17 05:00 Urine Bacteria Rare /hpf (None) H 05/26/17 05:00 Urine Mucus Rare /hpf (None) H 05/26/17 05:00 Fluid Source Pleural 05/28/17 12:55 Fluid Color Yellow 05/25/17 18:20 Fluid Appearance Hazy 05/28/17 12:55 Fluid RBC 440 /uL 05/28/17 12:55 Fluid Nucleated Cells 170 /uL 05/28/17 12:55 Fluid Polynuclear WBCs 83 % 05/28/17 12:55 Fluid Mononuclear WBCs 17 % 05/28/17 12:55 Body Fluid Glucose Source Not Reportable 05/28/17 12:55 Fluid Glucose <4 mg/dL 05/28/17 12:55 Body Fluid Protein Source Not Reportable 05/28/17 12:55 Fluid Total Protein 4300 mg/dL 05/28/17 12:55 Body Fluid LDH Source Not Reportable 05/28/17 12:55 Fluid LDH 3388 U/L 05/28/17 12:55 Fluid Comment 05/25/17 18:20 Vancomycin Trough 24.6 ug/mL 05/28/17 04:30 C. difficile (EIA) Intrp Negative (Negative) 05/31/17 04:20 Virus Source See Below 05/27/17 11:50 Viral Test See Below 05/27/17 11:50 Virus Analysis Interp See Below 05/27/17 11:50 Blood Type O Positive 05/25/17 15:00 Blood Type Recheck No 05/25/17 15:00 Antibody Screen NEGATIVE 05/25/17 15:00 Transfuse Plasma 05/25/2017 05/25/17 15:00 Spec Expiration Date 05/28/2017 - 229905/25/17 15:00 Microbiology 06/08/17 00:22 Blood Blood Culture - Preliminary No Growth after 48 hours 06/08/17 00:11 Blood Blood Culture - Preliminary No Growth after 48 hours 05/27/17 11:50 Bronchial Washings - Random Acid Fast Bacilli Smear - Final 05/27/17 11:50 Bronchial Washings - Random Acid Fast Bacilli Culture - Preliminary 05/25/17 18:20 Pericardial Fluid Acid Fast Bacilli Smear - Final 05/25/17 18:20 Pericardial Fluid Acid Fast Bacilli Culture - Preliminary 05/27/17 11:50 Bronchial Washings - Random Fungal Culture - Preliminary Rachel albicans 05/28/17 12:55 Pleural Fluid Anaerobic Culture - Final 05/26/17 09:47 Blood Blood Culture - Final No Growth after 144 hours 05/26/17 09:47 Blood Blood Culture - Final No Growth after 144 hours 05/28/17 12:55 Pleural Fluid Gram Stain - Final 05/28/17 12:55 Pleural Fluid Body Fluid Culture - Final 05/25/17 18:20 Pericardial Fluid Anaerobic Culture - Final 05/27/17 11:50 Bronchial Washings - Random Gram Stain - Final 05/27/17 11:50 Bronchial Washings - Random Bronchial Washings Culture - Final Rachel albicans 05/25/17 18:20 Pericardial Fluid Gram Stain - Final 05/25/17 18:20 Pericardial Fluid Body Fluid Culture - Final Streptococcus pneumoniae 05/26/17 05:00 Urine,Catheterized Urine Culture - Final Assessment and Plan (1) Alcoholism Status: Acute (2) Acute hypoxemic respiratory failure Status: Acute (3) Purulent pericarditis Narrative/Plan: 52-year-old gentleman who has a history of alcoholism who has radiological evidence of pneumonia. It is highly likely that the pneumonia resulted in the purulent pericarditis via direct extension. alpha streptococci have been isolated. It has been noted to be Streptococcus pneumoniae that is not drug- resistant. Antibiotic therapy with Rocephin and vancomycin is being utilized at this time pending further data. Blood cultures negative so far. As noted the patient's alcohol withdrawal is being treated, and his respiratory failure hopefully respond well to antibiotic therapy, treatment of the purulent pericarditis and underlying sepsis. The extensive leukocytosis is directly related to the purulent pericarditis and pneumonia, and with this current underlying status of alcoholism is a good prognostic sign and he was able to generate a leukocytosis. Chest tube is been placed in further cultures are pending. Blood cultures negative so far. Overall there is been improvement of his status. Pericardial drain removed. Chest tube also removed. As noted cultures have Streptococcus pneumoniae and doing well with current antibiotic therapy of Rocephin. Will need several weeks of intravenous antibiotic therapy. Received a couple doses of Solu-Medrol and has had a increase of his leukocytosis. Overall he is improved. Mentation is improved Status: Acute
--- NOTE | 2017-06-10 19:46 | PN ---
This is a 52-year-old male with a history of hypoxemic respiratory failure. He was admitted with a diagnosis of probable pneumonia. In addition, the patient had diffuse bilateral pneumonia, but loculated right-sided pleural effusion and possible empyema. Small-bore chest tube was inserted. The fluid was positive for Streptococcus pneumoniae. The patient also has a history of acute ST-segment -elevation myocardial infarction with emergent cardiac catheterization and stenting of the LAD, acute infectious pneumococcal pericarditis with pericardial effusion. The patient did have percutaneous drainage, alcoholism, delirium tremens, maculopapular rash, paroxysmal atrial fibrillation. The patient seems to be doing relatively well today. Doing well yesterday; was seen by my partner. Better today. Sitting up in bed. Not wearing any supplemental oxygen. Current vital signs include temperature 97.4, heart rate 84, respiratory rate 20 , room-air saturation 93%. Blood pressure 106/74. Appears in no acute distress. HEENT examination is grossly unremarkable. Mucous membranes are moist. No oral lesions. NECK: Supple. Full range of motion. No adenopathy or thyromegaly. Neck veins are flat. Cardiovascular examination reveals regular rhythm and rate. S1, S2 normal. No S3 , S4 or murmur. Lungs reveal relatively clear breath sounds. Breath sounds are diminished. A few scattered rhonchi. No wheezes or crackles. ABDOMEN: Soft. Bowel sounds are heard. No masses or tenderness. Extremities are intact. No cyanosis, clubbing or edema. SKIN: Without rash. Neurologic examination is non-focal. No chest x-ray today. Microbiology shows evidence of Strep pneumoniae and the pericardial fluid. Lab data are reviewed. Nothing from today except the potassium 3.6, magnesium 1.8. ASSESSMENT: 1. Acute hypoxemia respiratory failure secondary to pneumonia. The patient's course was also complicated by empyema and small-bore chest tube insertion as well as pneumococcal pericarditis. 2. Acute [id number] myocardial infarction, status post cardiac catheterization and stenting of the LAD. 3. Status post percutaneous drainage of the pericardial effusion. 4. Chronic alcohol abuse. 5. Delirium tremens. 6. Paroxysmal atrial fibrillation. 7. Multiple other medical problems and comorbidities. PLAN: Overall the patient is doing well. Plan discharge soon. Sitting up in bed. Not wearing his supplemental oxygen. Vital signs are stable. Labs, x-rays, medications and culture data are all reviewed. Additional recommendations and suggestions are forthcoming. MTDD
[2017-06-10] MEDS: QUEtiapine 50 MG TAB PO SCH (21:18)
[2017-06-10] MEDS: MELATONIN 5 MG TABLET PO SCH (21:36)
[2017-06-11] MEDS: PANTOPRAZOLE 40 MG TABLET PO SCH (06:49)
[2017-06-11] MEDS: IPRATROPIUM-ALBUTEROL 3 ML NEB INHALATION SCH ×3 (07:52→21:11)
[2017-06-11] MEDS: METOPROLOL TARTRATE 50 MG TAB PO SCH ×2 (08:12→21:30)
[2017-06-11] MEDS: ASPIRIN 81 MG CHEW PO SCH (08:13)
[2017-06-11] MEDS: ATORVASTATIN 40 MG TAB PO SCH (08:13)
[2017-06-11] MEDS: CLOPIDOGREL 75 MG TAB PO SCH (08:13)
[2017-06-11] MEDS: DILTIAZEM ORAL 30 MG TAB PO SCH ×4 (08:13→21:30)
[2017-06-11] MEDS: cefTRIAXone 2,000 MG in SODIUM CHLORIDE 0.9% 100 ML IVPB SCH (08:18)
[2017-06-11 08:26] LABS: Anion Gap 7 mmol/L; Blood Urea Nitrogen 9 mg/dL (9-20); Calcium 8.1 mg/dL (8.4-10.2); Carbon Dioxide 26 mmol/L (22-30); Chloride 104 mmol/L (98-107); Glucose 109 mg/dL (74-99); Non-African American GFR(MDRD) >60 (>60 ml/min/1.73 sqM); Potassium 3.9 mmol/L (3.5-5.1); Sodium 137 mmol/L (137-145)
[2017-06-11 11:53] VITALS: BMI 28.8
[2017-06-11] MEDS: FOLIC ACID 1 MG TAB PO SCH (13:04)
[2017-06-11] MEDS: THIAMINE 100 MG TAB PO SCH (13:04)
--- NOTE | 2017-06-11 14:20 | P.PN ---
Subjective Mr. Araujo is a 52-year-old male with a past medical history of chronic low back pain, hypertension, alcohol abuse and nicotine dependence coming into the hospital with a chief complaint of chest pain. Patient has history of chronic low back pain and pain of his neck that has been going on but for the past 5 days his symptoms have worsened. Patient's chest pain got worse and he was complaining of 10 out of 10 and so called the EMS. The paramedics did perform an EKG which was suspicious for ST elevation NM. He was given aspirin and nitroglycerin and transferred to [facility] for further evaluation. 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 GRICELDA Gonzales was informed, who did an emergent cardiac catheterization. The patient had a stent placed in his LAD and was also noted to have a large pericardial effusion. So CT surgeon Dr. Multani came in and did a pericardiocentesis. There was 380 mL of fluid drained out. And the patient has been transferred to the ICU for further management and care. On 05/26/17- on the night of 05/26 the patient became very combative and was trying to put all his lines and the pericardial catheter. The patient was placed on a CIWA scale and given 10 mg of Ativan without much improvement in his symptoms. So eventually he was given Haldol after which the patient did calm down. Around 230 ml of fluid was drained from the pericardium. On 05/27/17 - patient was pretty confused, agitated and was on restraints , he was placed on BiPAP and as he was desaturating. Dr. Angel had to intubate the patient around 10 AM today due to impending respiratory failure due to ARDS. Patient also had a bronchoscopy done by Dr. Angel this morning. Patient's pericardial fluid came back to be positive for Streptococcus and he has been started on ceftriaxone. On 05/28/2017- patient still remains intubated. He is on a Levophed drip. Sedated on propofol. Patient had thoracentesisdone today and 400 mL of fluid was drained. And the chest tube was placed. 05/29/2017 Patient failed a weaning trial this morning. With sedation holiday patient is able to move all his 4 extremities and follows simple commands. Cultures from bronchial washings showed no growth for the past 24 hours. On 05/30/17 - pt has been extubated successfully and is saturating above 90 % on 3 lt of nasal canula. on 05/31/17 Pt. is confused but able to answer slowly. resp status improved. still on chest tube and pericardial drain tube. 06/01/17 pt is confused able to answer questions no overnight events reported tries to get out of bed ROS_ deferred due to pt's confusion 06/02/2017 Patient is confused however is able to answer some questions appropriately Denies having any additional problems Overnight the patient had changed into atrial fibrillation is currently maintained on a Cardizem drip 06/03/17 confused no overnight events TPA is infused due to complicated effusion, loculated 06/04/17 still confused however improving no overnight events reported 06/05/17 pt pulled his chest tube no other overnight events 06/06/17 more appropriate no chest pain, arielle, nausea, vomiting, diarrhea 06/07/17 no new complaints no overnight events denies fevers,chills, nausea, cough, ARIELLE 06/09/17 no new overnight events pt is doing well denies chest pains, fevers, cough, nausea, vomiting, diarrhea Evident 2016 Patient apparently was confused overnight Stated that he wanted to kill himself this morning Went into atrial fibrillation with rapid ventricular rate Was started on a Cardizem drip briefly. 06/11/2017 Patient is agitated that he is not discharged Denies having any suicidal ideations Heart rate has been better controlled today. Blood pressure is slightly on the borderline low - Exam GEN. APPEARANCE: no acute distress. HEAD EXAM: Atraumatic EYE EXAM: No pallor no icterus ENT EXAM: ET tube in place NECK EXAM: No carotid bruit. No thyromegaly RESPIRATORY EXAM: Diminished breath sounds bilaterally. Improved breath sounds increased air movement CARDIOVASCULAR EXAM: regular S1 and S2 heard. GI/ABDOMINAL EXAM: Soft nontender. No guarding or rigidity. EXTREMITIES EXAM: No cyanosis, no swelling, no edema. NEUROLOGICAL EXAM: confused SKIN EXAM: warm to touch. No rash. Assessment and Plan Plan: ASSESSMENT Septic shock Streptococcal pericarditis Acute hypoxic respiratory failure secondary to ARDS Pneumonia right upper lobe ST elevation NM status post stenting of LAD Pericardial effusion Alcohol withdrawal delirium tremens Chronic liver disease Chronic alcohol abuse Chronic nicotine dependence New-onset atrial fibrillation with rapid ventricular rate Suicidal ideation PLAN public guardian at this time May need to be evaluated by our psychiatrist A PICC line will be placed Sitter at bedside patient is confused will obtain labs as likely as his delirium Objective - Vital Signs Vital signs: Vital Signs Temp 98.6 F 06/11/17 11:29 Pulse 86 06/11/17 11:29 Resp 16 06/11/17 11:29 BP 95/72 06/11/17 11:29 Pulse Ox 94 L 06/11/17 11:29 Intake & Output 06/10/17 06/11/17 06/11/17 18:59 06:59 18:59 Intake Total 1031.500 80 235 Output Total 200 400 Balance 831.500 80 -165 Weight 91 kg 91 kg Intake: IV 300 80 Magnesium Sulfate-D5w Pmx 200 1 gm In Dextrose/Water 1 100ml.bag @ 100 mls/hr IVPB Q1H [facility] Rx#: [id number] NS 80 cefTRIAXone 2,000 mg In 100 Sodium Chloride 0.9% 100 ml @ 100 mls/hr IVPB Q24HR [facility] Rx#:[id number] Intake, IV Titration 31.500 Amount Diltiazem 125 mg In 31.500 Sodium Chloride 0.9% 100 ml @ 10 MG/HR 10 mls/hr IV .[id number] [facility] Rx#: [id number] Oral 700 235 Output: Urine 200 400 Other: Voiding Method Urinal Urinal Urinal # Voids 1 ABP, PAP, CO, CI - Last Documented Arterial Blood Pressure 136/66 - Labs CBC & Chem 7: 06/09/17 22:50 06/11/17 06:28 Labs: Abnormal Lab Results - Last 24 Hours (Table) 06/11/17 Range/Units 06:28 Creatinine 0.58 L (0.66-1.25) mg/dL Glucose 109 H (74-99) mg/dL Calcium 8.1 L (8.4-10.2) mg/dL Microbiology - Last 24 Hours (Table) 05/27/17 11:50 Acid Fast Bacilli Smear - Final Bronchial Washings - Random Acid Fast Bacilli Culture - Preliminary 05/25/17 18:20 Acid Fast Bacilli Smear - Final Pericardial Fluid Acid Fast Bacilli Culture - Preliminary 06/08/17 00:22 Blood Culture - Preliminary Blood No Growth after 72 hours 06/08/17 00:11 Blood Culture - Preliminary Blood No Growth after 72 hours
[2017-06-11] MEDS ORDERED: LIDOCAINE 2% INJ 20 MG/ML SQ ONE (14:36)
--- NOTE | 2017-06-11 14:42 | PN ---
52-year-old male admitted to the hospital back on May 25 with a diagnosis of hypoxemic respiratory failure secondary to pneumonia. He had diffuse bilateral pneumonia with a loculated right sided effusion and empyema. A small ( ) chest tube was inserted. The fluid was positive for streptococcus pneumonia. In addition, the patient has a history of acute ST segment elevation myocardial infarction as well as previous cardiac catheterization with stenting of the LAD , acute infectious pneumococcal pericarditis with pericardial effusion status post percutaneous drainage, alcohol abuse, delirium tremens, maculopapillary rash and paroxysmal atrial fibrillation. Currently doing well. Not requiring any supplemental oxygen. His labs otherwise looking excellent. No respiratory issues at this time. The patient is feeling well. He does not admit to any major issues or complaints. No cough. No wheezing. No phlegm. No fever, chills, nausea or vomiting. No chest pain or chest discomfort. Current vital signs are stable. Temperature 98.6. Heart rate 86. Respiratory rate 16. Blood pressure 95/72. Mean 79. Room air saturation 95%. Appears in no acute distress. HEENT examination is grossly unremarkable. Mucous membranes are moist. Neck is supple. Full range of motion. No adenopathy, thyromegaly or neck vein distention. Cardiovascular examination reveals a regular rhythm and rate, heart sounds are a bit muffled. S1, S2 normal. There is no S3, S4 or murmur. Lungs are revealed a few scattered rhonchi. No wheezes. No crackles. Breath sounds equal. Abdomen is soft. Bowel sounds are heard. No masses or tenderness. Extremities are intact. No edema. Skin without rash. Labs are reviewed. Sodium, potassium, chloride, CO2 all normal. BUN and creatinine were essentially normal. Calcium and magnesium essentially normal. Microbiology is previously reviewed. No new x-rays to report. ASSESSMENT: 1. Acute hypoxemic respiratory failure secondary to pneumonia, which is complicated by empyema status post small ( ) chest tube placement. 2. History of pneumococcal pericarditis, status post percutaneous drainage. 3. Acute ST segment elevation myocardial infarction status post cardiac catheterization with stents to the LAD. 4. Chronic alcohol abuse with delirium tremens. 5. Paroxysmal atrial fibrillation. 6. Multiple medical problems and comorbidities. PLAN: The patient is doing well. Respiratory status is stable. We will see prn. No additional recommendations are made. MTDD
--- NOTE | 2017-06-11 15:03 | P.PN ---
Subjective This patient was admitted with evidence of pericarditis ischemic syndrome. Patient had a stent placement. Subsequently, patient had a pericardial tube placement for drainage of the pericardial effusion. Patient also developed pneumonia and delirium tremens related to alcohol withdrawal. Patient quite confused, is aware of the year and the month. Lying down in bed, sitter at bedside. Patient is walking with help. Hemodynamically stable. No recurrence of atrial fibrillation. Repeat echocardiogram with Doppler study revealed a small pericardial effusion. Overall, patient seemed to be relatively stable. 06/06/2017 Patient seen and examined this morning, much more alert and oriented today. Did complain of an episode of chest discomfort that worsened with deep breathing , likely secondary to pericarditis. Blood pressure 118/70 with a heart rate in the 90s. White blood cell count 17,000. 06/07/2017 Patient seen and examined today, denies any chest pain, hemodynamically stable. Potassium 3.3 which is being replaced. 06/10/2017 Patient went into atrial flutter with rapid ventricular response through the night last night and was initiated on IV Cardizem drip. This morning he is in a sinus rhythm to sinus tachycardia with occasional PVC. Currently there is a sitter at the bedside, because the patient had apparently threatened to kill himself. He is quite depressed overall today. Hemodynamically stable. 06/11/2017 Patient seen and examined this morning, remaining in normal sinus rhythm. Able from a cardiology perspective. Objective - Vital Signs Vital signs: Vital Signs Temp 98.6 F 06/11/17 11:29 Pulse 86 06/11/17 11:29 Resp 16 06/11/17 11:29 BP 95/72 06/11/17 11:29 Pulse Ox 94 L 06/11/17 11:29 Intake & Output 06/10/17 06/11/17 06/11/17 18:59 06:59 18:59 Intake Total 1031.500 80 235 Output Total 200 400 Balance 831.500 80 -165 Weight 91 kg 91 kg Intake: IV 300 80 Magnesium Sulfate-D5w Pmx 200 1 gm In Dextrose/Water 1 100ml.bag @ 100 mls/hr IVPB Q1H [facility] Rx#: [id number] NS 80 cefTRIAXone 2,000 mg In 100 Sodium Chloride 0.9% 100 ml @ 100 mls/hr IVPB Q24HR [facility] Rx#:[id number] Intake, IV Titration 31.500 Amount Diltiazem 125 mg In 31.500 Sodium Chloride 0.9% 100 ml @ 10 MG/HR 10 mls/hr IV .[id number] [facility] Rx#: [id number] Oral 700 235 Output: Urine 200 400 Other: Voiding Method Urinal Urinal Urinal # Voids 1 ABP, PAP, CO, CI - Last Documented Arterial Blood Pressure 136/66 - Exam GENERAL EXAM: Patient is sleepy and sluggish but arousable HEENT: Normocephalic. Normal reaction of pupils, equal size, normal range of extraocular motion. No erythema or exudates in the throat. NECK: No masses, no nuchal rigidity. CHEST: No chest wall deformity. LUNGS: Equal air entry with no crackles or wheeze. HEART: S1 and S2 normal with no audible mumurs or gallops. Regular rhythm, femorals equal on both sides.. ABDOMEN: No hepatosplenomegaly, normal bowel sounds, no guarding or rigidity. SKIN: No rashes CENTRAL NERVOUS SYSTEM: Deferred EXTREMITIES: No cyanosis, clubbing or edema. - Labs CBC & Chem 7: 06/09/17 22:50 06/11/17 06:28 Labs: Abnormal Lab Results - Last 24 Hours (Table) 06/11/17 Range/Units 06:28 Creatinine 0.58 L (0.66-1.25) mg/dL Glucose 109 H (74-99) mg/dL Calcium 8.1 L (8.4-10.2) mg/dL Microbiology - Last 24 Hours (Table) 05/27/17 11:50 Acid Fast Bacilli Smear - Final Bronchial Washings - Random Acid Fast Bacilli Culture - Preliminary 05/25/17 18:20 Acid Fast Bacilli Smear - Final Pericardial Fluid Acid Fast Bacilli Culture - Preliminary 06/08/17 00:22 Blood Culture - Preliminary Blood No Growth after 72 hours 06/08/17 00:11 Blood Culture - Preliminary Blood No Growth after 72 hours Assessment and Plan (1) Pericarditis Status: Acute (2) Alcoholism Status: Acute (3) COPD (chronic obstructive pulmonary disease) Status: Acute (4) Nicotine dependence Status: Acute (5) Paroxysmal atrial fibrillation Status: Acute (6) Pericardial effusion Status: Acute Plan: From cardiology's perspective, we'll continue patient on his current medications. We will follow him now on an as-needed basis only, least on hesitate to call with any questions. DNP note has been reviewed, I agree with a documented findings and plan of care. Patient was seen and examined.
--- NOTE | 2017-06-11 15:35 | IR ---
EXAMINATION TYPE: IR cvc insert >=5 years DATE OF EXAM: 06/11/2017 COMPARISON: NONE CLINICAL HISTORY: Infection Needs long-term intravenous access for antibiotics. PROCEDURE: After informed consent, the skin overlying the right brachial vein was localized with ultrasound and noted to be compressible and patent. An ultrasound image was obtained and submitted on the patient's chart. The overlying skin was prepped and draped and Lidocaine was used for local anesthesia. A sk in jj was made with a scalpel. Access was gained to the vein under ultrasound guidance with a 21 g auge needle and a 0.018 inch wire was advanced. Access site was dilated with Peel-Away sheath and ca theter tailored to the appropriate length and advanced such that the distal tip is at the cavoatrial junction. Spot image was obtained verifying placement. Catheter was fixed to the skin with suture a nd a sterile dressing was placed following hemostasis. Catheter was aspirated and flushed with salin e. Patient was discharged in stable condition without complication. Maximal barrier technique is uti lized. Ultrasound image is documented on the chart. Ultrasound used with sterile technique. Fluoro time and fluoroscopic images submitted to document procedure: 1.4 minutes fluoroscopy time, 11 3 intraoperative C-arm images document the procedure IMPRESSION: STATUS POST ULTRASOUND AND FLUOROSCOPIC GUIDED PICC LINE PLACEMENT, READY FOR USE. THIS PROCEDURE WAS PERFORMED BY THE UNDERSIGNED.
[2017-06-11] MEDS: ACETAMINOPHEN TAB 500 MG TAB PO PRN (15:47)
[2017-06-11] MEDS: MELATONIN 5 MG TABLET PO SCH (21:29)
[2017-06-11] MEDS: QUEtiapine 50 MG TAB PO SCH (22:07)
[2017-06-11 22:48] VITALS: RESP 16
[2017-06-12] MEDS: IPRATROPIUM-ALBUTEROL 3 ML NEB INHALATION SCH ×4 (07:03→20:31)
[2017-06-12] MEDS: ACETAMINOPHEN TAB 500 MG TAB PO PRN (07:25)
[2017-06-12] MEDS: ATORVASTATIN 40 MG TAB PO SCH (08:48)
[2017-06-12] MEDS: METOPROLOL TARTRATE 50 MG TAB PO SCH ×2 (08:48→21:11)
[2017-06-12] MEDS: DILTIAZEM ORAL 30 MG TAB PO SCH ×4 (08:48→21:12)
[2017-06-12] MEDS: PANTOPRAZOLE 40 MG TABLET PO SCH (08:48)
[2017-06-12] MEDS: ASPIRIN 81 MG CHEW PO SCH (08:48)
[2017-06-12] MEDS: CLOPIDOGREL 75 MG TAB PO SCH (08:48)
[2017-06-12] MEDS: cefTRIAXone 2,000 MG in SODIUM CHLORIDE 0.9% 100 ML IVPB SCH (08:49)
[2017-06-12] MEDS: FOLIC ACID 1 MG TAB PO SCH (12:50)
[2017-06-12] MEDS: THIAMINE 100 MG TAB PO SCH (12:50)
--- NOTE | 2017-06-12 17:50 | P.PN ---
Subjective Mr. Araujo is a 52-year-old male with a past medical history of chronic low back pain, hypertension, alcohol abuse and nicotine dependence coming into the hospital with a chief complaint of chest pain. Patient has history of chronic low back pain and pain of his neck that has been going on but for the past 5 days his symptoms have worsened. Patient's chest pain got worse and he was complaining of 10 out of 10 and so called the EMS. The paramedics did perform an EKG which was suspicious for ST elevation RI. He was given aspirin and nitroglycerin and transferred to [facility] for further evaluation. So the industrial conveyor belt repairer community center director Dr. GRICELDA Gonzales was informed, who did an emergent cardiac catheterization. The patient had a stent placed in his LAD and was also noted to have a large pericardial effusion. So CT surgeon Dr. Multani came in and did a pericardiocentesis. There was 380 mL of fluid drained out. And the patient has been transferred to the ICU for further management and care. On 05/26/17- on the night of 05/26 the patient became very combative and was trying to put all his lines and the pericardial catheter. The patient was placed on a CIWA scale and given 10 mg of Ativan without much improvement in his symptoms. So eventually he was given Haldol after which the patient did calm down. Around 230 ml of fluid was drained from the pericardium. On 05/27/17 - patient was pretty confused, agitated and was on restraints , he was placed on BiPAP and as he was desaturating. Dr. Angel had to intubate the patient around 10 AM today due to impending respiratory failure due to ARDS. Patient also had a bronchoscopy done by Dr. Angel this morning. Patient's pericardial fluid came back to be positive for Streptococcus and he has been started on ceftriaxone. On 05/28/2017- patient still remains intubated. He is on a Levophed drip. Sedated on propofol. Patient had thoracentesisdone today and 400 mL of fluid was drained. And the chest tube was placed. 05/29/2017 Patient failed a weaning trial this morning. With sedation holiday patient is able to move all his 4 extremities and follows simple commands. Cultures from bronchial washings showed no growth for the past 24 hours. On 05/30/17 - pt has been extubated successfully and is saturating above 90 % on 3 lt of nasal canula. on 05/31/17 Pt. is confused but able to answer slowly. resp status improved. still on chest tube and pericardial drain tube. 06/01/17 pt is confused able to answer questions no overnight events reported tries to get out of bed ROS_ deferred due to pt's confusion 06/02/2017 Patient is confused however is able to answer some questions appropriately Denies having any additional problems Overnight the patient had changed into atrial fibrillation is currently maintained on a Cardizem drip 06/03/17 confused no overnight events TPA is infused due to complicated effusion, loculated 06/04/17 still confused however improving no overnight events reported 06/05/17 pt pulled his chest tube no other overnight events 06/06/17 more appropriate no chest pain, arielle, nausea, vomiting, diarrhea 06/07/17 no new complaints no overnight events denies fevers,chills, nausea, cough, ARIELLE 06/09/17 no new overnight events pt is doing well denies chest pains, fevers, cough, nausea, vomiting, diarrhea Evident 2016 Patient apparently was confused overnight Stated that he wanted to kill himself this morning Went into atrial fibrillation with rapid ventricular rate Was started on a Cardizem drip briefly. 06/11/2017 Patient is agitated that he is not discharged Denies having any suicidal ideations Heart rate has been better controlled today. Blood pressure is slightly on the borderline low 06/12/17 doing well frustrated with not finding a rehab place no other complaints reported - Exam GEN. APPEARANCE: no acute distress. HEAD EXAM: Atraumatic EYE EXAM: No pallor no icterus NECK EXAM: No carotid bruit. No thyromegaly RESPIRATORY EXAM: Diminished breath sounds bilaterally. Improved breath sounds increased air movement CARDIOVASCULAR EXAM: regular S1 and S2 heard. GI/ABDOMINAL EXAM: Soft nontender. No guarding or rigidity. EXTREMITIES EXAM: No cyanosis, no swelling, no edema. NEUROLOGICAL EXAM:n focal deficits SKIN EXAM: warm to touch. No rash. Assessment and Plan Plan: ASSESSMENT Septic shock Streptococcal pericarditis Acute hypoxic respiratory failure secondary to ARDS Pneumonia right upper lobe ST elevation RI status post stenting of LAD Pericardial effusion Alcohol withdrawal delirium tremens Chronic liver disease Chronic alcohol abuse Chronic nicotine dependence New-onset atrial fibrillation with rapid ventricular rate Suicidal ideation PLAN public guardian dc to rehab when accepted continue iv rocephin Objective - Vital Signs Vital signs: Vital Signs Temp 98.3 F 06/12/17 15:00 Pulse 104 H 06/12/17 15:23 Resp 16 06/12/17 15:23 BP 113/77 06/12/17 15:00 Pulse Ox 95 06/12/17 15:00 Intake & Output 06/11/17 06/12/17 06/12/17 18:59 06:59 18:59 Intake Total 335 480 720 Output Total 400 400 Balance -65 480 320 Weight 91 kg 91 kg Intake: IV 100 cefTRIAXone 2,000 mg In 100 Sodium Chloride 0.9% 100 ml @ 100 mls/hr IVPB Q24HR [facility] Rx#:[id number] Oral 235 480 720 Output: Urine 400 400 Other: Voiding Method Urinal Urinal Incontinent Incontinent # Voids 1 1 2 ABP, PAP, CO, CI - Last Documented Arterial Blood Pressure 136/66 - Labs CBC & Chem 7: 06/09/17 22:50 06/11/17 06:28 Labs: Microbiology - Last 24 Hours (Table) 06/08/17 00:22 Blood Culture - Preliminary Blood No Growth after 96 hours 06/08/17 00:11 Blood Culture - Preliminary Blood No Growth after 96 hours
[2017-06-12] MEDS ORDERED: cefTRIAXone 2,000 MG in SODIUM CHLORIDE 0.9% 100 ML IVPB SCH (18:00)
[2017-06-12] MEDS: QUEtiapine 50 MG TAB PO SCH (21:12)
[2017-06-12] MEDS: MELATONIN 5 MG TABLET PO SCH (21:12)
[2017-06-13 07:21] VITALS: BP 116/81; PULSE 106; TEMP 98.5
[2017-06-13] MEDS: ASPIRIN 81 MG CHEW PO SCH (08:12)
[2017-06-13] MEDS: METOPROLOL TARTRATE 50 MG TAB PO SCH (08:12)
[2017-06-13] MEDS: CLOPIDOGREL 75 MG TAB PO SCH (08:12)
[2017-06-13] MEDS: ATORVASTATIN 40 MG TAB PO SCH (08:12)
[2017-06-13] MEDS: PANTOPRAZOLE 40 MG TABLET PO SCH (08:12)
[2017-06-13] MEDS: DILTIAZEM ORAL 30 MG TAB PO SCH ×2 (08:12→13:03)
[2017-06-13] MEDS: IPRATROPIUM-ALBUTEROL 3 ML NEB INHALATION SCH ×2 (08:43→11:26)
--- NOTE | 2017-06-13 12:53 | P.DS ---
Providers Date of admission: 05/25/17 16:31 Attending physician: Lorri Chaudhary Consults: 05/25/17 16:37 Consult Physician Urgent Consulting Provider: Rayshawn Pop Consult Reason/Comments: ICU care Do you want consulting provider notified?: Already Contacted 05/25/17 16:39 Consult Physician Urgent Consulting Provider: Malachi Multani Consult Reason/Comments: Pericardial effusion Do you want consulting provider notified?: Already Contacted 05/25/17 16:45 Consult Physician Urgent Consulting Provider: Celina Gonzales Consult Reason/Comments: Continued Care Do you want consulting provider notified?: Already Contacted 05/26/17 11:54 Consult Physician Urgent Consulting Provider: Eloy Carlton Consult Reason/Comments: infected pericardial fluid Do you want consulting provider notified?: Yes 06/10/17 09:40 Consult Physician Routine Consulting Provider: Akila Hall Consult Reason/Comments: depression, suicidal Do you want consulting provider notified?: Yes Primary care physician: Stated None Hospital Course: Mr. Araujo is a 52-year-old male with a past medical history of chronic low back pain, hypertension, alcohol abuse and nicotine dependence coming into the hospital with a chief complaint of chest pain. Patient has history of chronic low back pain and pain of his neck that has been going on but for the past 5 days his symptoms have worsened. Patient's chest pain got worse and he was complaining of 10 out of 10 and so called the EMS. The paramedics did perform an EKG which was suspicious for ST elevation LA. He was given aspirin and nitroglycerin and transferred to [facility] for further evaluation. So the setter induction heating equipment supercharger mechanic Dr. GRICELDA Gonzales was informed, who did an emergent cardiac catheterization. The patient had a stent placed in his LAD and was also noted to have a large pericardial effusion. So CT surgeon Dr. Multani came in and did a pericardiocentesis. There was 380 mL of fluid drained out. And the patient has been transferred to the ICU for further management and care. On 05/26/17- on the night of 05/26 the patient became very combative and was trying to put all his lines and the pericardial catheter. The patient was placed on a CIWA scale and given 10 mg of Ativan without much improvement in his symptoms. So eventually he was given Haldol after which the patient did calm down. Around 230 ml of fluid was drained from the pericardium. On 05/27/17 - patient was pretty confused, agitated and was on restraints , he was placed on BiPAP and as he was desaturating. Dr. Angel had to intubate the patient around 10 AM today due to impending respiratory failure due to ARDS. Patient also had a bronchoscopy done by Dr. Angel this morning. Patient's pericardial fluid came back to be positive for Streptococcus and he has been started on ceftriaxone. On 05/28/2017- patient still remains intubated. He is on a Levophed drip. Sedated on propofol. Patient had thoracentesisdone today and 400 mL of fluid was drained. And the chest tube was placed. 05/29/2017 Patient failed a weaning trial this morning. With sedation holiday patient is able to move all his 4 extremities and follows simple commands. Cultures from bronchial washings showed no growth for the past 24 hours. On 05/30/17 - pt has been extubated successfully and is saturating above 90 % on 3 lt of nasal canula. on 05/31/17 Pt. is confused but able to answer slowly. resp status improved. still on chest tube and pericardial drain tube. 06/01/17 pt is confused able to answer questions no overnight events reported tries to get out of bed ROS_ deferred due to pt's confusion 06/02/2017 Patient is confused however is able to answer some questions appropriately Denies having any additional problems Overnight the patient had changed into atrial fibrillation is currently maintained on a Cardizem drip 06/03/17 confused no overnight events TPA is infused due to complicated effusion, loculated 06/04/17 still confused however improving no overnight events reported 06/05/17 pt pulled his chest tube no other overnight events 06/06/17 more appropriate no chest pain, james, nausea, vomiting, diarrhea 06/07/17 no new complaints no overnight events denies fevers,chills, nausea, cough, JAMES 06/09/17 no new overnight events pt is doing well denies chest pains, fevers, cough, nausea, vomiting, diarrhea Evident 2016 Patient apparently was confused overnight Stated that he wanted to kill himself this morning Went into atrial fibrillation with rapid ventricular rate Was started on a Cardizem drip briefly. 06/11/2017 Patient is agitated that he is not discharged Denies having any suicidal ideations Heart rate has been better controlled today. Blood pressure is slightly on the borderline low 06/12/17 doing well frustrated with not finding a rehab place no other complaints reported - Exam GEN. APPEARANCE: no acute distress. HEAD EXAM: Atraumatic EYE EXAM: No pallor no icterus NECK EXAM: No carotid bruit. No thyromegaly RESPIRATORY EXAM: Diminished breath sounds bilaterally. Improved breath sounds increased air movement CARDIOVASCULAR EXAM: regular S1 and S2 heard. GI/ABDOMINAL EXAM: Soft nontender. No guarding or rigidity. EXTREMITIES EXAM: No cyanosis, no swelling, no edema. NEUROLOGICAL EXAM:n focal deficits SKIN EXAM: warm to touch. No rash. Assessment and Plan Plan: ASSESSMENT Septic shock Streptococcal pericarditis Acute hypoxic respiratory failure secondary to ARDS Pneumonia right upper lobe ST elevation LA status post stenting of LAD Pericardial effusion Alcohol withdrawal delirium tremens Chronic liver disease Chronic alcohol abuse Chronic nicotine dependence New-onset atrial fibrillation with rapid ventricular rate Suicidal ideation PLAN public guardian dc to rehab when accepted continue iv rocephin for atleast 4 more weeks follow up with Dr Carlton Patient Condition at Discharge: Serious Plan - Discharge Summary New Discharge Prescriptions: New Acetaminophen Tab [Tylenol] 500 mg PO Q6HR PRN tab PRN Reason: Fever and/ or MILD Pain Aspirin 81 mg PO DAILY Atorvastatin [Lipitor] 40 mg PO DAILY tab Clopidogrel [Plavix] 75 mg PO DAILY tab Diltiazem Oral [Cardizem*] 30 mg PO QID tab Folic Acid 1 mg PO DAILY@1200 tab Melatonin 5 mg PO HS tab Metoprolol Tartrate [Lopressor] 100 mg PO BID tab Pantoprazole [Protonix] 40 mg PO AC-BRKFST tab QUEtiapine [SEROquel] 50 mg PO HS #20 tab cefTRIAXone [Rocephin] 2,000 mg IVPB Q24HR #45 vial Discharge Medication List Acetaminophen Tab [Tylenol] 500 mg PO Q6HR PRN tab 06/12/17 [Rx] Aspirin 81 mg PO DAILY 06/12/17 [Rx] Atorvastatin [Lipitor] 40 mg PO DAILY tab 06/12/17 [Rx] Clopidogrel [Plavix] 75 mg PO DAILY tab 06/12/17 [Rx] Diltiazem Oral [Cardizem*] 30 mg PO QID tab 06/12/17 [Rx] Folic Acid 1 mg PO DAILY@1200 tab 06/12/17 [Rx] Melatonin 5 mg PO HS tab 06/12/17 [Rx] Metoprolol Tartrate [Lopressor] 100 mg PO BID tab 06/12/17 [Rx] Pantoprazole [Protonix] 40 mg PO AC-BRKFST tab 06/12/17 [Rx] QUEtiapine [SEROquel] 50 mg PO HS #20 tab 06/12/17 [Rx] cefTRIAXone [Rocephin] 2,000 mg IVPB Q24HR #45 vial 06/12/17 [Rx] Follow up Appointment(s)/Referral(s): Eloy Carlton MD [STAFF PHYSICIAN] - 1 Week None,Stated [Primary Care Provider] - 1-2 days Discharge Disposition: TRANSFER TO SNF/ECF
[2017-06-13] MEDS: FOLIC ACID 1 MG TAB PO SCH (13:03)
[2017-06-13] MEDS: THIAMINE 100 MG TAB PO SCH (13:03)
== END 2017-06-13 14:17 | DRG 853 ==
LOC: EC 14:55 → EEVIPCON 16:31 → 6ICU 16:31 → 6SEL 06-04 18:10 → 5MS5E 06-07 15:49 → 6SEL 06-09 22:32 → 5MS5E 06-11 18:53
PROVIDERS: ADMIT Internal Medicine; ATTEND Internal Medicine
PROC: 4A023N7 Measurement of Cardiac Sampling and Pressure, Left Heart, Percutaneous Approach (ICD-10-PCS; 2017-05-25)
PROC: B211YZZ Fluoroscopy of Multiple Coronary Arteries using Other Contrast (ICD-10-PCS; 2017-05-25)
PROC: B215YZZ Fluoroscopy of Left Heart using Other Contrast (ICD-10-PCS; 2017-05-25)
PROC: 0W9D30Z Drainage of Pericardial Cavity with Drainage Device, Percutaneous Approach (ICD-10-PCS; 2017-05-25)
PROC: 30233L1 Transfusion of Nonautologous Fresh Plasma into Peripheral Vein, Percutaneous Approach (ICD-10-PCS; 2017-05-25)
PROC: 02703DZ Dilation of Coronary Artery, One Artery with Intraluminal Device, Percutaneous Approach (ICD-10-PCS; principal; 2017-05-25 15:25)
PROC: 0D9670Z Drainage of Stomach with Drainage Device, Via Natural or Artificial Opening (ICD-10-PCS; 2017-05-26)
PROC: 5A1945Z Respiratory Ventilation, 24-96 Consecutive Hours (ICD-10-PCS; 2017-05-27)
PROC: 0B9C8ZX Drainage of Right Upper Lung Lobe, Via Natural or Artificial Opening Endoscopic, Diagnostic (ICD-10-PCS; 2017-05-27)
PROC: 0BJ08ZZ Inspection of Tracheobronchial Tree, Via Natural or Artificial Opening Endoscopic (ICD-10-PCS; 2017-05-27)
PROC: 0BH18EZ Insertion of Endotracheal Airway into Trachea, Via Natural or Artificial Opening Endoscopic (ICD-10-PCS; 2017-05-27)
PROC: 02HV33Z Insertion of Infusion Device into Superior Vena Cava, Percutaneous Approach (ICD-10-PCS; 2017-05-27)
PROC: 03HY32Z Insertion of Monitoring Device into Upper Artery, Percutaneous Approach (ICD-10-PCS; 2017-05-27)
PROC: 4A133B1 Monitoring of Arterial Pressure, Peripheral, Percutaneous Approach (ICD-10-PCS; 2017-05-27)
PROC: 4A133J1 Monitoring of Arterial Pulse, Peripheral, Percutaneous Approach (ICD-10-PCS; 2017-05-27)
PROC: 0W9930Z Drainage of Right Pleural Cavity with Drainage Device, Percutaneous Approach (ICD-10-PCS; 2017-05-28)
PROC: 3E0G76Z Introduction of Nutritional Substance into Upper GI, Via Natural or Artificial Opening (ICD-10-PCS; 2017-05-28)
PROC: 02HV33Z Insertion of Infusion Device into Superior Vena Cava, Percutaneous Approach (ICD-10-PCS; 2017-06-11)
PROC: B548ZZA Ultrasonography of Superior Vena Cava, Guidance (ICD-10-PCS; 2017-06-11)
DX: A41.9 Sepsis, unspecified organism (principal); I21.3 ST elevation (STEMI) myocardial infarction of unspecified site; J96.01 Acute respiratory failure with hypoxia; R65.21 Severe sepsis with septic shock; J86.9 Pyothorax without fistula; J13 Pneumonia due to Streptococcus pneumoniae; J90 Pleural effusion, not elsewhere classified; I31.4 Cardiac tamponade; J44.0 Chronic obstructive pulmonary disease with (acute) lower respiratory infection; F10.231 Alcohol dependence with withdrawal delirium; I30.1 Infective pericarditis; J44.1 Chronic obstructive pulmonary disease with (acute) exacerbation; E87.1 Hypo-osmolality and hyponatremia; R45.851 Suicidal ideations; I48.92 Unspecified atrial flutter; B95.3 Streptococcus pneumoniae as the cause of diseases classified elsewhere; I48.0 Paroxysmal atrial fibrillation; I25.10 Atherosclerotic heart disease of native coronary artery without angina pectoris; I49.3 Ventricular premature depolarization; K76.9 Liver disease, unspecified; F17.200 Nicotine dependence, unspecified, uncomplicated; G89.29 Other chronic pain; M54.5 Low back pain; R79.1 Abnormal coagulation profile; I10 Essential (primary) hypertension; K46.9 Unspecified abdominal hernia without obstruction or gangrene; T36.1X5A Adverse effect of cephalosporins and other beta-lactam antibiotics, initial encounter; L27.0 Generalized skin eruption due to drugs and medicaments taken internally; Z78.1 Physical restraint status; Z82.49 Family history of ischemic heart disease and other diseases of the circulatory system
CPT/HCPCS: 31624; 32551; 36415; 36569; 70450; 71010; 71250; 71260; 74000; 76937; 76942; 77001; 80048; 80053; 80202; 81001; 82550; 82553; 82805; 82945; 83036; 83605; 83615; 83735; 84100; 84132; 84155; 84157; 84484; 85025; 85379; 85610; 85730; 86850; 86900; 86901; 87040; 87070; 87075; 87077; 87086; 87102; 87116; 87186; 87205; 87206; 87252; 87324; 87496; 87498; 87502; 87529; 87798; 88108; 88305; 89050; 92928; 93005; 93306; 93308; 93458; 94002; 94003; 94640; 94660; 94760; 94770; 96374; 96375; 99291

== ENCOUNTER → 2019-07-31 | Outpatient (CLI) | payer OTHER ==
--- NOTE | 2019-08-02 19:16 | MR ---
EXAMINATION TYPE: MR shoulder LT wo con DATE OF EXAM: 07/31/2019 COMPARISON: None HISTORY: L shoulder pain TECHNIQUE: Multiplanar, multisequence imaging of the left shoulder is performed without contrast. FINDINGS: Rotator Cuff: Intact Acromioclavicular Joint: Arthropathy at the acromioclavicular joint Glenohumeral Joint: Intact there is remodeling of the humeral head, marginal spurring present Labrum: There is a cluster of grapes T2 hyperintensity, and slightly increased T1 at the inferior lab ral level coursing along the bony labrum medially. The inferior labrum shows abnormal increased signa l present, distortion compatible with tear with para labral cysts. Posterior labrum also appears irre gular. Anterior labrum is somewhat attenuated. Biceps Tendon: The long head of biceps is in normal location within bicipital groove. There is fluid signal present along the tendon. Bone marrow signal: Pseudocysts are present within the humeral head. Other: There is some fluid signal present in the subacromial subdeltoid bursa. There are some small l oose bodies present anterior to the bony labrum. 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 Possible degenerative tear, chronic labral tear with para labral cysts.
== END | disposition home or self-care (01) ==
LOC: RADMRIMAIN 12:37 → EEVIPCON 12:37
PROVIDERS: ATTEND Family Medicine
DX: M19.012 Primary osteoarthritis, left shoulder (principal)

== ENCOUNTER → 2019-09-23 | Outpatient (CLI) | payer OTHER ==
--- NOTE | 2019-09-23 13:55 | MR ---
EXAMINATION TYPE: MR cervical spine wo con DATE OF EXAM: 09/23/2019 COMPARISON: HISTORY: Neck and shoulder pain TECHNIQUE: Multiplanar, multisequence images of the cervical spine were acquired. C2-C3: No evidence for degenerative disc disease. No disc bulge/herniation or protrusion. No Canal stenosis. Foramina are patent bilaterally. C3-C4: Bilateral foraminal encroachment is present due to uncovertebral joint hypertrophy. No signifi cant spinal stenosis. Minimal posterior broad-based disc bulge causes slight anterior mass effect on the thecal sac. C4-C5: The listhesis contributes to cause moderate to severe central stenosis, posterior extension en dplate disc complex contacts the anterior cervical cord. There is bilateral foraminal encroachment du e to uncovertebral joint hypertrophy facet arthropathy. C5-C6: Severe central stenosis is present, is posterior extension endplate disc complex causing mass effect on the anterior cervical cord. Bilateral foraminal encroachment is present. C6-C7: Posterior broad-based disc bulge causes mild anterior mass effect on the thecal sac, there is only mild central stenosis. There is foraminal encroachment left greater than right. C7-T1: Posterior broad-based disc bulge causes mild anterior mass effect on the thecal sac. No signif icant central stenosis. There is left-sided foraminal encroachment. Cervical segments are intact. There is normal alignment. Cervical spinal cord is of normal signal. Craniovertebral junction relationships are within normal limits. There is multilevel spondylosis. E ndplate discogenic marrow signal changes are present with associated loss of disc height signal at in tervertebral levels which is greatest at C4-5, C5-6 and C6-7. Minimal retrolisthesis grade 1 C4-5 and C5-6. IMPRESSION: Degenerative disc disease, spinal stenosis, multilevel foraminal encroachment.
== END | disposition home or self-care (01) ==
LOC: RADMRIMAIN 12:58
PROVIDERS: ATTEND Family Medicine
DX: M48.02 Spinal stenosis, cervical region (principal); M50.10 Cervical disc disorder with radiculopathy, unspecified cervical region
CPT/HCPCS: 72141